=== PATIENT | female | born 1945 | race Caucasian/White ===

== ENCOUNTER 2020-03-11 15:10 | Outpatient (REF) | payer MEDICARE, SELFPAY ==
[2020-03-11 15:44] LABS: MANUAL DIFF FLAG NO
[2020-03-11 15:46] LABS: Basophils Percent Auto 0.6 % (0-2); Eosinophils Absolute Auto 0.1 X10*3/uL (0.0-0.4); Eosinophils Percent Auto 1.8 % (0-4); Hematocrit 37.2 % (37-47); Hemoglobin 11.5 g/dl (12.0-16.0); Lymphocytes Absolute Auto 1.2 X10*3/uL (1.2-4.9); Lymphocytes Percent Auto 24.5 % (20-40); Mean Corpuscular HGB Conc 30.9 g/dl (31.0-35.0); Mean Corpuscular Hemoglobin 27.7 pg (27.0-33.0); Mean Corpuscular Volume 89.6 fL (80-98); Mean Platelet Volume 9.4 fL (9.4-12.3); Monocytes Absolute Auto 0.4 X10*3/uL (0.1-1.2); Monocytes Percent Auto 8.6 % (2-11); Neutrophils Absolute Auto 3.2 X10*3/uL (2.0-8.3); Neutrophils Percent Auto 64.5 % (45-73); Platelet Count 254 X10*3/uL (160-400); Red Blood Count 4.15 X10*6/uL (4.20-5.50); Red Cell Distribution Width 15.8 % (11.0-16.0)
[2020-03-11 16:15] LABS: Alanine Aminotransferase 16 U/L (0-31); Albumin Level 4.3 g/dL (3.5-5.0); Alkaline Phosphatase 71 U/L (39-117); Anion Gap 13 (12-20); Aspartate Amino Transferase 20 U/L (5-31); Bilirubin Total 0.3 mg/dL (0.0-1.0); Blood Urea Nitrogen 16 mg/dL (9-16); Calcium 9.4 mg/dL (8.4-10.2); Carbon Dioxide 30 mmol/L (22-29); Chloride 102 mmol/L (96-108); Cholesterol 167 mg/dL; Estimated Glomerular Filt Rate > 60; Glucose Fasting 104 mg/dL (60-99); HDL Cholesterol 88 mg/dL; Iron 172 mcg/dL (30-160); LDL Cholesterol Calculated 69 mg/dl; Percent Iron Saturation 46 % (15-50); Potassium 4.3 mmol/l (3.3-5.1); Sodium 141 mmol/L (135-145); Total Iron Binding Capacity 378 mcg/dL (228-428); Total Protein 6.3 g/dL (6.5-8.0); Triglycerides 51 mg/dL; Unsaturated Iron Binding 206 ug/dL
[2020-03-11 16:48] LABS: Folate > 20.0 ng/mL (> or = 4.0); Vitamin B12 1033 pg/mL (200-900)
== END 2020-03-11 15:11 | disposition home or self-care (01) ==
LOC: HO.LAB 15:10
PROVIDERS: PCP Internal Medicine; Visit Provider Internal Medicine
DX: I10 Essential (primary) hypertension (principal); E78.00 Pure hypercholesterolemia, unspecified; R73.01 Impaired fasting glucose; D64.9 Anemia, unspecified; G62.9 Polyneuropathy, unspecified
CPT/HCPCS: 36415; 80053; 80061; 82607; 82746; 83540; 85025

== ENCOUNTER → 2020-04-10 13:41 | Outpatient (REF) | payer MEDICARE, SELFPAY ==
--- NOTE | 2020-04-10 13:44 | CA_ITS ---
Transthoracic Echocardiogram Patient (Last, First, Middle): Cary Davis, Gender: Female Date of : 1945 Age: 74 Procedure Date: 04/10/2020 Procedure Type: Transthoracic Echocardiogram Location: OP Height: 167.64 cm Weight: 58.06 kg BSA: 1.65 m2 Heart Rate: bpm BP: 116 / 60 mmHg Knifer Up: Referring MD: Espinoza Santiago MD Symptoms: R06.00 - Dyspnea, unspecified Study Quality: Good ECG Rhythm: Sinus Conclusions: - The left ventricular systolic function is normal. The visually estimated ejection fraction is between 60-65%. - There is mild to moderate aortic valve regurgitation. - There is mild mitral valve regurgitation. - There is mild tricuspid valve regurgitation. Findings Left Ventricle Normal left ventricular cavity size. There is mildly increased left ventricular wall thickness. The left ventricular systolic function is normal. The visually estimated ejection fraction is between 60-65%. There is no evidence of regional wall motion abnormalities. Diastolic function is normal for age. Right Ventricle Normal right ventricular cavity size and systolic function. Atria The left atrium is normal in size. The right atrium is normal in size. Aortic Valve There is a normal trileaflet aortic valve. There is mild calcification of the aortic valve. There is no aortic valve stenosis. There is mild to moderate aortic valve regurgitation. Mitral Valve The mitral valve appears normal. There is mild mitral valve regurgitation. There is no mitral valve stenosis. Pulmonic Valve The pulmonic valve was not well visualized. Tricuspid Valve Normal tricuspid valve structure. There is mild tricuspid valve regurgitation. The pulmonary artery systolic pressure is normal. Great Vessels The aortic annulus, sinuses of valsalva, and asc aorta are normal in size. Venous The inferior vena cava is normal in size and collapses greater than 50% with inspiration. Pericardium/Pleural There is no evidence of pericardial effusion. Prior Study Comparison Changes noted compared to prior study dated: 09/08/2017. Pulmonary hypertension not seen. Measurements 2D Linear Measurements IVSd: 1.10 0.6-0.9/0.6-1.0 cm LVIDd: 3.74 3.9-5.3/4.2-5.9 cm LVIDd Index: 2.27 2.4-3.2/2.2-3.1 cm/m2 LVIDs: 2.06 2.0-3.6 cm LVPWd: 1.03 0.7-1.1 cm Ao Root: 3.50 2.1-3.5 cm LA Diam: 2.90 2.7-3.8/3.0-4.0 cm LAIDs Index: 1.76 1.5-2.3 cm/m2 LV Mass: 155.95 67-162/88-224 g LV Mass Index: 94.51 43-95/49-115 g/m2 LVOT Diam: 2.10 3.0+(-)1.3 cm Mitral Valve MV Pk E: 0.74 MV PK A: 0.69 MV Decel Time: 165.00 E/A: 1.10 E'Lateral: 9.28 E'Medial: 9.86 E/E' Med: 7.50 E/E' Lat: 8.00 PHT: 48.00 MVA PHT: 4.58 Decel [place]: 4.48 Aortic Valve AoV Pk Kevin: 1.50 AoV Mn Kevin: 0.88 AoV VTI: 0.34 AoV Pk Grad: 9.00 Aov Mn Grad: 4.00 AIMEE Cont.VTI: 3.14 AI Pk Kevin: 4.41 AI [place]: 3.35 LVOT LVOT Pk Kevin: 1.40 LVOT Mn Kevin: 0.88 LVOT VTI: 0.31 LVOT Pk Grad: 8.00 LVOT Mn Grad: 4.00 LVOT Diam: 2.10 LVOT Area: 3.46 Diastolic Function MV Pk E: 0.74 MV Pk A: 0.69 E/A: 1.10 E'Medial: 9.86 E/E' Med: 7.50 E' Laterial: 9.28 E/E' Lat: 8.00 Tricuspid Valve TR Pk Kevin: 2.59 TR Pk Grad: 27.00 Great Vessels Aorta Ao Root-2D: 3.50 2.0-3.7 cm Ao Asc: 3.30 2.1-3.4 cm Pulmonary Valve PV Pk Kevin: 0.99 Peak PV Grad: 4.00 Updated in Other Vendor System with Status of Final Adalid Royal MD electronically signed on 04/13/2020 12:38:02 PM with status of Final
== END ==
LOC: HO.CARD 13:41
PROVIDERS: PCP Internal Medicine; Visit Provider Internal Medicine
DX: R06.00 Dyspnea, unspecified (principal)
CPT/HCPCS: 93306

== ENCOUNTER 2020-09-12 13:06 | Outpatient (REF) | payer MEDICARE, SELFPAY ==
--- NOTE | ~2020-09-12 | MM_ITS ---
EXAMINATION: MM SCREENING DIGITAL BREAST TOMOSYNTHESIS, BILATERAL CLINICAL INFORMATION: Screening. Asymptomatic. The lifetime risk of breast cancer based on the Tyrer-Cuzick Model is 2%. COMPARISON: Mammography: 03/03/2019, 02/25/2018, 01/09/2017 TECHNIQUE: Digital breast tomosynthesis is performed in both the craniocaudal and mediolateral oblique views along with computer-aided detection (CAD). Synthesized 2D images are generated from the tomosynthesis. FINDINGS: There are scattered areas of fibroglandular density (ACR BI-RADS breast composition Category b). There are no significant masses, abnormal calcifications, or other abnormalities. There is mild chronic bilateral nipple retraction. Some dermal calcifications are again noted. No significant changes. MM/MM tomosynthesis screening BI IMPRESSION: There are no significant changes from prior exams. ASSESSMENT: BI-RADS 2: Benign RECOMMENDATION: Routine annual mammography screening. This patient's information was entered into a reminder system with a target due date for their next mammogram.
== END 2020-09-12 13:07 | disposition home or self-care (01) ==
LOC: HO.MAMMO 13:06
PROVIDERS: Visit Provider Internal Medicine
DX: Z12.31 Encounter for screening mammogram for malignant neoplasm of breast (principal)
CPT/HCPCS: 77063; 77067

== ENCOUNTER 2020-11-09 22:49 | Emergency (ER) | payer MEDICARE, SELFPAY ==
[2020-11-09 23:43] VITALS: BP 103/43; PULSE 85; RESP 16; TEMP 36.7; O2SAT 96; BMI 20.9
--- NOTE | 2020-11-10 00:46 | ED.SKABFB ---
HPI - Skin/Abscess/Foreign Bdy General Chief complaint: Skin/Abscess/Foreign Body Stated complaint: spider bite Source: patient Mode of arrival: ambulatory Limitations: no limitations History of Present Illness HPI narrative: 75-year-old female presents with erythema and bruising to the left thumb after suspected spider bite. She does not report any fevers or chills, and states that the last time she was bitten by a spider that her whole hand swelled up and needed injectable antibiotics. She did not report any other symptoms at this time. MD complaint: insect bite/sting Onset (ago): day(s) (1) Tetanus up to date: yes Location: R hand (thumb) Severity: mild Severity scale (1-10): 1 Quality: aching Pain Consistency: constant Relieving factors: none Exacerbating factors: palpation and movement Context: none Associated symptoms: denies other symptoms Treatments prior to arrival: none Related Data Home Medications Medication Instructions Recorded Confirmed albuterol sulfate 90 mcg/actuation 2 puff INHALATION Q4-6H PRN 03/11/20 09/09/20 aerosol inhaler aspirin 81 mg tablet,delayed 81 mg PO DAILY 03/11/20 09/09/20 release clonazepam 0.5 mg tablet 0.5 mg PO BID 03/11/20 09/09/20 clonazepam 1 mg tablet 1 mg PO BEDTIME 03/11/20 09/09/20 fluticasone propionate 110 2 puff INHALATION BID 03/11/20 09/09/20 mcg/actuation HFA aerosol inhaler (Flovent HFA) lamotrigine 200 mg tablet 200 mg PO DAILY 03/11/20 09/09/20 sertraline 50 mg tablet 50 mg PO DAILY 03/11/20 09/09/20 trazodone 100 mg tablet 100 mg PO DAILY 03/11/20 09/09/20 Previous Rx's Medication Instructions Recorded simvastatin 20 mg tablet 20 mg PO BEDTIME #90 tab 05/20/20 duloxetine 30 mg capsule,delayed 30 mg PO BID #180 cap 05/22/20 release fluticasone propionate 50 2 spray INTRANASAL DAILY PRN 30 08/21/20 mcg/actuation nasal Days #16 g spray,suspension clopidogrel 75 mg tablet 75 mg PO DAILY #90 tab 10/10/20 amoxicillin 875 mg-potassium 1 tab PO Q12H 7 Days #14 tab 11/10/20 clavulanate 125 mg tablet (Augmentin) Allergies Allergy/AdvReac Type Severity Reaction Status Date / Time morphine [Morphine] Allergy Severe VOMITING/LONGORIA Verified 09/09/20 15:23 LLUCINATION S codeine [Codeine] Allergy Intermediate VOMITING/HALLUCINATIONS, Verified 09/09/20 15:23 nause/extended abdomen capsaicin [CAPSAICIN] Allergy Unknown BURNING Verified 09/09/20 15:23 latex Allergy Unknown Unknown Verified 09/09/20 15:23 atorvastatin AdvReac Unknown fever, Verified 09/09/20 15:23 chills, abd pain, numbness adhesives Allergy Unknown rash Uncoded 05/30/20 10:51 bacitracin Allergy Unknown redness Uncoded 05/30/20 10:51 and itching Review of Systems Review of Systems: Constitutional: No Fever, No Chills ENT/Mouth: No sore throat, No Rhinorrhea Eyes: No Eye Pain, No Swelling, No Redness Cardiovascular: No Chest Pain, No SOB Respiratory: No Cough, No Sputum Gastrointestinal: No Nausea, No Vomiting, No Diarrhea, No abdominal Pain Genitourinary: No Dysuria, No Hematuria Musculoskeletal: No joint pain, No Myalgias, No Joint Swelling Skin: No Skin Lesions, positive skin erythema and bruising Neuro: No Weakness, No Numbness, No Loss of Consciousness, No Dizziness, No Headache Psych: No Anxiety, No Depression, No SI/HI/AH/VH Heme/Lymph: No Bruising, No Bleeding,No Lymphadenopathy Endocrine: No Polyuria, No Polydipsia Yes all other systems are reviewed and are negative PMFSH Past Medical History Attestation statement: The following information was validated with the patient. Source: old records reviewed Medical History Alcoholism in remission Asthma Benign essential hypertension Exertional dyspnea Gait abnormality Neuropathy Partial symptomatic epilepsy with complex partial seizures, not intractable, without status epilepticus Peripheral arterial disease Pure hypercholesterolemia Unsteady gait Surgical History History of angioplasty History of cataract surgery History of cholecystectomy History of hysterectomy History of partial gastrectomy History of tubal ligation S/P excision of neuroma Family History Family History Father Heart disease CVD (cardiovascular disease) Stroke Hypertension Mother Heart disease CVD (cardiovascular disease) Asthma Maternal Grandmother No problems noted. Maternal Grandfather No problems noted. Paternal Grandmother No problems noted. Paternal Grandfather No problems noted. Social History Social History Housing: Apartment Alcohol intake: former Patient Tobacco Use Status: Former Tobacco user e-Cigarette/Vaping Use: Never Used Second Hand Smoke Exposure: Yes Advance Directives: No Advance Directives Information Provided: Yes service: No Current occupational status: retired Physical Exam Vital Signs: Vital Signs: Last Vital Signs Temp 98.0 F 11/09/20 23:43 Pulse 85 11/09/20 23:43 Resp 16 11/09/20 23:43 BP 103/43 L 11/09/20 23:43 Pulse Ox 96 11/09/20 23:43 Body Mass Index 20.9 Appearance: Alert. Oriented X3. No acute distress. Eyes: Pupils equal, round and reactive to light. ENT: Pharynx normal. Neck: Normal inspection. Neck supple. CVS: Normal heart rate and rhythm. Pulses normal. Respiratory: No respiratory distress. Breath sounds normal. Abdomen: Soft and nontender. Skin: Positive erythema and bruising to the left thumb, otherwise Skin warm and dry. Normal skin color. Normal skin turgor. Extremities: No lower extremity edema. Full range of motion to all extremities. Strength 5/5. Brisk capillary refill and equal pulses to the upper extremities. Neuro: No motor deficit. No sensory deficit. Cranial nerves 2-12 intact. Course Course Course Narrative: 75-year-old female presents with erythema and bruising from a spider bite. Will treat with Augmentin. Patient is afebrile and nontoxic. Vital signs within normal limits. Full range of motion, strength 5/5, brisk capillary refill in equal pulses to the upper extremities. Patient verbalized understanding of and agrees to plan of care discharge home. MDM - Skin/Abscess/Foreign Bdy Differential Diagnosis Differential diagnosis: Likely abscess of skin or subcutaneous tissue, cellulitis and insect bites Medical Records Attestation: I reviewed the patient's medical records. Discharge Plan Discharge Clinical Impression: Cellulitis Qualifiers: Site of cellulitis: extremity Site of cellulitis of extremity: finger Laterality: right Qualified Code(s): L03.011 - Cellulitis of right finger Patient Disposition: Home, Self-Care Instructions: Cellulitis (ED), Warm Compress or Soak (ED) Additional Instructions: You were evaluated for spider bite. Please take Augmentin twice a day as directed. Thank you for choosing this emergency department for evaluation. Please follow-up with primary care physician as needed. Return to the emergency department for any new, concerning, or worsening symptoms. Prescriptions: New amoxicillin-pot clavulanate [Augmentin] 875-125 mg tablet 1 tab PO Q12H 7 Days Qty: 14 RF: 0 No Action simvastatin 20 mg tablet 20 mg PO BEDTIME Qty: 90 RF: 2 duloxetine 30 mg capsule,delayed release(DR/EC) 30 mg PO BID Qty: 180 RF: 5 fluticasone propionate 50 mcg/actuation spray,suspension 2 spray intranasal DAILY PRN (Reason: allergy symptoms) 30 Days Qty: 16 RF: 5 clopidogrel 75 mg tablet 75 mg PO DAILY Qty: 90 RF: 1 sertraline 50 mg tablet 50 mg PO DAILY RF: 0 clonazepam 1 mg tablet 1 mg PO BEDTIME RF: 0 clonazepam 0.5 mg tablet 0.5 mg PO BID RF: 0 lamotrigine 200 mg tablet 200 mg PO DAILY RF: 0 trazodone 100 mg tablet 100 mg PO DAILY RF: 0 aspirin 81 mg tablet,delayed release (DR/EC) 81 mg PO DAILY RF: 0 Flovent HFA 110 mcg/actuation HFA aerosol inhaler 2 puff inhalation BID RF: 0 albuterol sulfate 90 mcg/actuation HFA aerosol inhaler 2 puff inhalation Q4-6H PRNRF: 0
[2020-11-10] MEDS: Amoxicillin/Potassium Clav 875 MG TABLET PO (01:40)
== END 2020-11-10 02:31 | disposition home or self-care (01) ==
PROVIDERS: Emergency Provider Emergency Medicine; PCP Internal Medicine
DX: L03.011 Cellulitis of right finger (principal); S60.361A Insect bite (nonvenomous) of right thumb, initial encounter; W57.XXXA Bitten or stung by nonvenomous insect and other nonvenomous arthropods, initial encounter; Y93.9 Activity, unspecified; Y92.9 Unspecified place or not applicable; Y99.9 Unspecified external cause status
CPT/HCPCS: 99283

== ENCOUNTER 2021-02-12 12:31 | Outpatient (REF) | payer MEDICARE, SELFPAY ==
[2021-02-12 12:45] LABS: MANUAL DIFF FLAG NO
[2021-02-12 13:00] LABS: Basophils Percent Auto 0.6 % (0-2); Eosinophils Absolute Auto 0.1 X10*3/uL (0.0-0.4); Eosinophils Percent Auto 1.6 % (0-4); Hematocrit 35.7 % (37.0-47.0); Imm Gran Abs Auto 0.01 X10*3/uL (0.00-0.03); Imm Gran Pct Auto 0.2 % (0.0-0.4); Lymphocytes Absolute Auto 1.3 X10*3/uL (1.2-4.9); Lymphocytes Percent Auto 26.7 % (20-40); Mean Corpuscular HGB Conc 30.8 g/dl (31.0-35.0); Mean Corpuscular Hemoglobin 25.7 pg (27.0-33.0); Mean Corpuscular Volume 83.4 fL (80.0-98.0); Mean Platelet Volume 9.4 fL (9.4-12.3); Monocytes Absolute Auto 0.5 X10*3/uL (0.1-1.2); Monocytes Percent Auto 9.7 % (2-11); Neutrophils Percent Auto 61.2 % (45-73); Platelet Count 275 X10*3/uL (160-400); Red Blood Count 4.28 X10*6/uL (4.20-5.50); White Blood Count 4.9 X10*3/uL (4.8-10.8)
[2021-02-12 13:37] LABS: Alanine Aminotransferase 19 U/L (0-31); Albumin Level 4.3 g/dL (3.5-5.0); Alkaline Phosphatase 67 U/L (39-117); Anion Gap 14 (12-20); Aspartate Amino Transferase 20 U/L (5-31); Bilirubin Total < 0.2 mg/dL (0.0-1.0); Blood Urea Nitrogen 20 mg/dL (9-16); Calcium 9.5 mg/dL (8.4-10.2); Carbon Dioxide 29 mmol/L (22-29); Chloride 106 mmol/L (96-108); Cholesterol 164 mg/dL; Estimated Glomerular Filt Rate > 60; Glucose Fasting 117 mg/dL (60-99); HDL Cholesterol 85 mg/dL; LDL Cholesterol Calculated 71 mg/dl; Potassium 4.8 mmol/L (3.3-5.1); Sodium 144 mmol/L (135-145); Total Protein 6.1 g/dL (6.5-8.0); Triglycerides 42 mg/dL
[2021-02-12 13:47] LABS: Erythrocyte Sedimentation Rate 5 MM/HR (0-20)
[2021-02-12 13:51] LABS: TSH reflex Free T4 0.91 uIU/mL (0.32-4.0); Vitamin D 25-OH Total 69.4 ng/mL (>30)
[2021-02-12 14:26] LABS: Folate > 20.0 ng/mL (> or = 4.0); Vitamin B12 467 pg/mL (200-900)
== END 2021-02-12 12:32 | disposition home or self-care (01) ==
LOC: HO.LAB 12:31
PROVIDERS: PCP Internal Medicine; Visit Provider Internal Medicine
DX: I10 Essential (primary) hypertension (principal); M79.604 Pain in right leg; M79.605 Pain in left leg; E78.00 Pure hypercholesterolemia, unspecified; E55.9 Vitamin D deficiency, unspecified; E53.8 Deficiency of other specified B group vitamins
CPT/HCPCS: 36415; 80053; 80061; 82306; 82550; 82607; 82746; 83735; 84443; 85025; 85652; 86140

== ENCOUNTER 2021-06-12 11:14 | Outpatient (REF) | payer MEDICARE, SELFPAY ==
[2021-06-12 11:31] LABS: MANUAL DIFF FLAG NO
[2021-06-12 11:49] LABS: Basophils Percent Auto 0.8 % (0-2); Eosinophils Absolute Auto 0.1 X10*3/uL (0.0-0.4); Eosinophils Percent Auto 2.1 % (0-4); Hematocrit 35.4 % (37.0-47.0); Hemoglobin 10.6 g/dl (12.0-16.0); Lymphocytes Absolute Auto 1.3 X10*3/uL (1.2-4.9); Lymphocytes Percent Auto 33.7 % (20-40); Mean Corpuscular HGB Conc 29.9 g/dl (31.0-35.0); Mean Corpuscular Hemoglobin 26.8 pg (27.0-33.0); Mean Corpuscular Volume 89.4 fL (80.0-98.0); Mean Platelet Volume 9.2 fL (9.4-12.3); Monocytes Absolute Auto 0.4 X10*3/uL (0.1-1.2); Monocytes Percent Auto 9.4 % (2-11); Platelet Count 243 X10*3/uL (160-400); Red Blood Count 3.96 X10*6/uL (4.20-5.50); Red Cell Distribution Width 15.4 % (11.0-16.0); White Blood Count 3.7 X10*3/uL (4.8-10.8)
[2021-06-12 13:05] LABS: Folate > 20.0 ng/mL (> or = 4.0); Vitamin B12 744 pg/mL (200-900)
[2021-06-12 13:11] LABS: Appearance Urine CLEAR; Color Urine YELLOW; Glucose Urine UA NEG (NEG); Leukocyte Esterase Urine NEG (NEG); Nitrite Urine NEG (NEG); Urine Blood NEG (NEG); Urine Ketones NEG (NEG); Urine Protein NEG (NEG-TRACE)
[2021-06-12 14:15] LABS: Alanine Aminotransferase 20 U/L (0-31); Albumin Level 4.2 g/dL (3.5-5.0); Alkaline Phosphatase 68 U/L (39-117); Anion Gap 12 (12-20); Aspartate Amino Transferase 23 U/L (5-31); Bilirubin Total 0.5 mg/dL (0.0-1.0); Blood Urea Nitrogen 13 mg/dL (9-16); Calcium 9.7 mg/dL (8.4-10.2); Carbon Dioxide 29 mmol/L (22-29); Chloride 102 mmol/L (96-108); Cholesterol 164 mg/dL; Estimated Glomerular Filt Rate > 60; Glucose Fasting 110 mg/dL (60-99); HDL Cholesterol 81 mg/dL; LDL Cholesterol Calculated 74 mg/dl; Potassium 4.3 mmol/L (3.3-5.1); Sodium 139 mmol/L (135-145); Triglycerides 45 mg/dL
[2021-06-12 14:38] LABS: TSH reflex Free T4 1.42 uIU/mL (0.32-4.0); Vitamin D 25-OH Total 51.5 ng/mL (>30)
== END 2021-06-12 11:15 | disposition home or self-care (01) ==
LOC: HO.LAB 11:14
PROVIDERS: PCP Internal Medicine; Visit Provider Internal Medicine
DX: G62.9 Polyneuropathy, unspecified (principal); E78.00 Pure hypercholesterolemia, unspecified; E55.9 Vitamin D deficiency, unspecified; I10 Essential (primary) hypertension
CPT/HCPCS: 36415; 80053; 80061; 81003; 82306; 82607; 82746; 84443; 85025

== ENCOUNTER → 2021-06-19 11:17 | Outpatient (BNV) | payer MEDICARE, SELFPAY | PROVIDERS: PCP Internal Medicine; Visit Provider Internal Medicine | DX: D64.9 Anemia, unspecified (principal); E61.1 Iron deficiency | CPT/HCPCS: 99203; 99213; 99214 ==

== ENCOUNTER 2021-07-03 07:17 | Outpatient (REF) | payer MEDICARE, SELFPAY | END 2021-07-03 07:18 | disposition home or self-care (01) | LOC: HO.MDS 07:17 | PROVIDERS: Visit Provider Internal Medicine | DX: D50.9 Iron deficiency anemia, unspecified (principal) | CPT/HCPCS: 96365; 96366; J1200; J1750; Q0163 ==

== ENCOUNTER 2021-07-17 11:15 | Outpatient (REF) | payer MEDICARE, SELFPAY ==
--- NOTE | ~2021-07-17 | MM_ITS ---
EXAMINATION: BONE DENSITOMETRY CLINICAL INDICATION: Asymptomatic menopausal state. COMPARISON: Previous BD dated 02/25/2018 and baseline BD dated 01/25/2007. CT 09/07/2017 TECHNIQUE: Using a [employer] DXA System (software version: 13.1) manufactured by [employer], dual-energy x-ray absorptiometry was performed of the lumbar spine and left hip. The images are of good technical quality. Summary results are attached. FINDINGS: AP SPINE L1-L3 (excluding L4): The data of L1-L4 has been changed to exclude the L4 vertebral body, because possible degenerative changes at this level may cause overestimation of lumbar spine density. Current: BMD 0.855 g/cm2, Z-score -0.6, T-score -2.6, osteoporosis, 10.8% decrease from previous, 22.5% decrease from baseline (<5% change is not significant). Prior: BMD 0.958 g/cm2. Baseline: BMD 1.103 g/cm2. LEFT FEMUR, NECK: Current: BMD 0.760 g/cm2, Z-score 0.2, T-score -2.0, osteopenia. Prior: BMD 0.786 g/cm2. Baseline: BMD 0.942 g/cm2. LEFT FEMUR, TOTAL: Current: BMD 0.784 g/cm2, Z-score 0.2, T-score -1.8, osteopenia, 1.3% decrease from previous, 16.6% decrease from baseline (<5% change is not significant). Prior: BMD 0.794 g/cm2. Baseline: BMD 0.940 g/cm2. IDENTIFIED RISK FACTORS: Osteoporosis, recurrent falls, secondary osteoporosis, menopause, hysterectomy, bilateral oophorectomy. HISTORY OF FRACTURE: None listed. MEDICATIONS: Calcium supplements or multivitamin, vitamin D. MM/XR DEXA axial skeleton IMPRESSION: 1. DIAGNOSIS: Osteoporosis based on the lowest T-score value of -2.6 in the lumbar spine applying World Health Organization criteria. 2. 10-YEAR FRACTURE RISK PREDICTION, FRAX: According to the guidelines, FRAX calculation should only be performed on patients in the osteopenia bone density category. Therefore, FRAX was not performed on this patient. 3. Treatment Recommendations: NOF guidelines recommend consideration for treatment in postmenopausal women and men age 50 and older presenting with the following: -A hip or vertebral (clinical or morphometric) fracture. -T-score less than or equal to -2.5 at the femoral neck or spine after appropriate evaluation to exclude secondary causes. -Low bone mass at the hip or spine and a 10-year fracture probability by FRAX of greater than or equal to 3% for hip fracture or greater than or equal to 20% for major osteoporotic fracture based on the [place] adapted WHO algorithm. 4. Other Recommendations: All treatment decisions require clinical judgment and consideration of individual patient factors, including patient preferences, comorbidities, previous drug use, risk factors not captured in the FRAX model (e.g. frailty, falls, vitamin D deficiency, increased bone turnover, interval significant decline in bone density) and possible under or overestimation of fracture risk by FRAX. Additional medical evaluation for secondary cause of low bone mineral density may be appropriate. FUTURE SCAN RECOMMENDATION: People with diagnosed cases of osteoporosis or at high risk for fracture should have regular bone mineral density tests. For patients eligible for Medicare, routine testing is allowed once every 2 years. The testing frequency can be increased to one year for patients who have rapidly progressing disease, those who are receiving or discontinuing medical therapy to restore bone mass, or have additional risk factors.
== END 2021-07-17 11:16 | disposition home or self-care (01) ==
LOC: HO.MAMMO 11:15
PROVIDERS: Visit Provider Internal Medicine
DX: Z13.820 Encounter for screening for osteoporosis (principal); M85.80 Other specified disorders of bone density and structure, unspecified site; Z78.0 Asymptomatic menopausal state
CPT/HCPCS: 77080

== ENCOUNTER 2021-09-15 13:17 | Outpatient (REF) | payer MEDICARE, SELFPAY ==
--- NOTE | ~2021-09-15 | MM_ITS ---
EXAMINATION: MM SCREENING DIGITAL BREAST TOMOSYNTHESIS, BILATERAL CLINICAL INFORMATION: Screening. Asymptomatic. The lifetime risk of breast cancer based on the Tyrer-Cuzick Model is 2%. COMPARISON: Mammography: 09/12/2020, 03/03/2019, 02/25/2018 TECHNIQUE: Digital breast tomosynthesis is performed in both the craniocaudal and mediolateral oblique views along with computer-aided detection (CAD). Synthesized 2D images are generated from the tomosynthesis. FINDINGS: There are scattered areas of fibroglandular density (ACR BI-RADS breast composition Category b). There are no significant masses, abnormal calcifications, or other abnormalities. No developing density or interval changes. Chronic bilateral nipple retraction again seen. No significant changes. MM/MM tomosynthesis screening BI IMPRESSION: No mammographic evidence of malignancy. ASSESSMENT: BI-RADS 2: Benign RECOMMENDATION: Routine annual mammography screening. This patient's information was entered into a reminder system with a target due date for their next mammogram.
== END 2021-09-15 13:18 | disposition home or self-care (01) ==
LOC: HO.MAMMO 13:17
PROVIDERS: PCP Internal Medicine; Visit Provider Internal Medicine
DX: Z12.31 Encounter for screening mammogram for malignant neoplasm of breast (principal)
CPT/HCPCS: 77063; 77067

== ENCOUNTER 2021-10-09 08:48 | Outpatient (REF) | payer MEDICARE, SELFPAY ==
--- NOTE | ~2021-10-09 | XR_ITS ---
EXAMINATION: XR SHOULDER, RIGHT CLINICAL INFORMATION: Pain. COMPARISON: Radiographs dated 09/13/2013. TECHNIQUE: AP neutral, scapula Y and axillary views of the right shoulder are submitted. FINDINGS: The bones and soft tissues are normal. No fracture. Glenohumeral and acromioclavicular alignment is anatomic with normal joint space. No abnormal soft tissue calcifications. XR/XR shoulder RT min 2V IMPRESSION: Normal right shoulder.
== END 2021-10-09 08:49 | disposition home or self-care (01) ==
LOC: HO.HOSX 08:48
PROVIDERS: Visit Provider Physician Assistant
DX: M75.80 Other shoulder lesions, unspecified shoulder (principal); M75.21 Bicipital tendinitis, right shoulder
CPT/HCPCS: 20610; 73030; 99202; J1040

== ENCOUNTER 2021-10-16 14:54 | Outpatient (REF) | payer MEDICARE, SELFPAY ==
--- NOTE | ~2021-10-16 | XR_ITS ---
EXAMINATION: XR CERVICAL SPINE CLINICAL INFORMATION: M54.2 - Cervicalgia COMPARISON: CT cervical spine 09/07/2017 TECHNIQUE: 4 views of the cervical spine are obtained. FINDINGS: There is straightening and mild reversal cervical lordosis with mild dextrocurvature cervical thoracic junction similar to prior imaging. There is no cervical vertebral compression, spondylolisthesis, destructive process, or prevertebral soft tissue swelling. The odontoid appears intact. There are again degenerative changes between anterior arch C1 and the dens. Degenerative disc changes are present at C5-C6 and lesser at C4-C5. There is mild disc narrowing and vertebral spurring. 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 XR/XR cervical spine 2V IMPRESSION: -Straightening and mild reversal cervical lordosis with mild dextrocurvature cervical thoracic spine. -Degenerative disc changes C5-C6 and lesser at C4-C5.
== END 2021-10-16 14:55 | disposition home or self-care (01) ==
LOC: HO.XRAY 14:54
PROVIDERS: PCP Internal Medicine; Visit Provider Physician Assistant
DX: S16.1XXD Strain of muscle, fascia and tendon at neck level, subsequent encounter (principal)
CPT/HCPCS: 72040; 99212

== ENCOUNTER → 2021-11-07 09:55 | Outpatient (BNVA) | payer MEDICARE, SELFPAY | PROVIDERS: PCP Internal Medicine; Visit Provider Nurse Practitioner Family | DX: M47.812 Spondylosis without myelopathy or radiculopathy, cervical region (principal); M50.30 Other cervical disc degeneration, unspecified cervical region; M62.838 Other muscle spasm; M25.511 Pain in right shoulder; Z79.899 Other long term (current) drug therapy | CPT/HCPCS: 99202 ==

== ENCOUNTER 2021-12-25 09:55 | Outpatient (REF) | payer MEDICARE, SELFPAY ==
--- NOTE | ~2021-12-25 | XR_ITS ---
EXAMINATION: XR THORACIC SPINE CLINICAL INFORMATION: Pain COMPARISON: None TECHNIQUE: 3 views of the thoracic spine were obtained. FINDINGS: Bone alignment is normal. No fracture or dislocation is seen. There is mild spondylolisthesis and disc narrowing of the proximal and mid thoracic spine. Paraspinal soft tissues are normal. XR/XR thoracic spine 3V IMPRESSION: Mild degenerative changes.
== END 2021-12-25 09:56 | disposition home or self-care (01) ==
LOC: HO.XRAY 09:55
PROVIDERS: PCP Internal Medicine; Visit Provider Internal Medicine
DX: M54.6 Pain in thoracic spine (principal); M62.838 Other muscle spasm; M50.30 Other cervical disc degeneration, unspecified cervical region; M81.0 Age-related osteoporosis without current pathological fracture; M54.12 Radiculopathy, cervical region; R26.89 Other abnormalities of gait and mobility; R26.81 Unsteadiness on feet
CPT/HCPCS: 72072; 99212

== ENCOUNTER 2022-01-09 16:38 | Outpatient (REF) | payer MEDICARE, SELFPAY ==
[2022-01-09 16:51] LABS: MANUAL DIFF FLAG NO
[2022-01-09 17:18] LABS: Basophils Percent Auto 0.8 % (0-2); Eosinophils Absolute Auto 0.3 X10*3/uL (0.0-0.4); Eosinophils Percent Auto 5.8 % (0-4); Hematocrit 37.5 % (37.0-47.0); Hemoglobin 12.1 g/dl (12.0-16.0); Imm Gran Abs Auto 0.01 X10*3/uL (0.00-0.03); Imm Gran Pct Auto 0.2 % (0.0-0.4); Lymphocytes Absolute Auto 1.4 X10*3/uL (1.2-4.9); Lymphocytes Percent Auto 28.6 % (20-40); Mean Corpuscular HGB Conc 32.3 g/dl (31.0-35.0); Mean Corpuscular Hemoglobin 32.2 pg (27.0-33.0); Mean Corpuscular Volume 99.7 fL (80.0-98.0); Mean Platelet Volume 9.7 fL (9.4-12.3); Monocytes Absolute Auto 0.4 X10*3/uL (0.1-1.2); Monocytes Percent Auto 8.4 % (2-11); Neutrophils Absolute Auto 2.7 x10*3/uL (2.0-8.3); Neutrophils Percent Auto 56.2 % (45-73); Platelet Count 228 X10*3/uL (160-400); Red Blood Count 3.76 X10*6/uL (4.20-5.50); Red Cell Distribution Width 13.2 % (11.0-16.0); White Blood Count 4.9 X10*3/uL (4.8-10.8)
[2022-01-09 17:29] LABS: Appearance Urine Cloudy; Color Urine Yellow; Glucose Urine UA Negative (Negative); Leukocyte Esterase Urine Moderate (2+) (Negative); Nitrite Urine Negative (Negative); PH 5.5 (5.0-9.0); UMIC TRIGGER UACC YES; Urine Blood Negative (Negative); Urine Ketones Trace mg/dL (Negative); Urine Protein Negative (Neg-Trace)
[2022-01-09 17:33] LABS: Alanine Aminotransferase 24 U/L (0-31); Albumin Level 4.1 g/dL (3.5-5.0); Alkaline Phosphatase 74 U/L (39-117); Anion Gap 13 (12-20); Aspartate Amino Transferase 19 U/L (5-31); Bilirubin Total 0.3 mg/dL (0.0-1.0); Blood Urea Nitrogen 12 mg/dL (9-16); Calcium 8.9 mg/dL (8.4-10.2); Carbon Dioxide 26 mmol/L (22-29); Chloride 109 mmol/L (96-108); Cholesterol 153 mg/dL; Estimated Glomerular Filt Rate > 60; Glucose Fasting 96 mg/dL (60-99); HDL Cholesterol 86 mg/dL; Iron 80 mcg/dL (30-160); LDL Cholesterol Calculated 61 mg/dl; Percent Iron Saturation 31 % (15-50); Potassium 4.1 mmol/L (3.3-5.1); Sodium 144 mmol/L (135-145); Total Iron Binding Capacity 257 mcg/dL (228-428); Total Protein 5.6 g/dL (6.5-8.0); Triglycerides 31 mg/dL; Unsaturated Iron Binding 177 ug/dL
[2022-01-09 17:42] LABS: Bacteria Urine None Seen (None Seen); Calcium Oxalate Crystals Urine Present; Hyaline Casts Urine 0-2 /LPF (0-2); RBC Urine 0-2 /HPF (0-2); Squamous Epithelial Cell Urine 0-2 /HPF (0-2); UACC Culture Trigger YES; WBC Urine 21-50 /HPF (0-5)
[2022-01-09 17:51] LABS: TSH reflex Free T4 0.79 uIU/mL (0.32-4.0); Vitamin D 25-OH Total 34.5 ng/mL (>30)
[2022-01-09 18:05] LABS: Folate > 20.0 ng/mL (> or = 4.0); Vitamin B12 528 pg/mL (200-900)
== END 2022-01-09 16:39 | disposition home or self-care (01) ==
LOC: HO.LAB 16:38
PROVIDERS: PCP Internal Medicine; Visit Provider Internal Medicine
DX: I10 Essential (primary) hypertension (principal); E55.9 Vitamin D deficiency, unspecified; D50.9 Iron deficiency anemia, unspecified; E53.8 Deficiency of other specified B group vitamins; E78.00 Pure hypercholesterolemia, unspecified
CPT/HCPCS: 36415; 80053; 80061; 81001; 82306; 82607; 82746; 83540; 84443; 85025; 87086

== ENCOUNTER 2022-01-12 10:17 | Outpatient (REF) | payer MEDICARE, SELFPAY ==
--- NOTE | ~2022-01-12 | MR_ITS ---
EXAMINATION: MR CERVICAL SPINE WITHOUT CONTRAST CLINICAL INFORMATION: Pain radiating into head. Difficulty looking down. Bilateral leg claudication. Prior fall. COMPARISON: MRI dated 10/25/2014 and x-ray from 10/16/2021. TECHNIQUE: Multiplanar, multisequential imaging of the cervical spine was performed without contrast. FINDINGS: VERTEBRAL BODIES AND PARASPINAL SOFT TISSUES: The marrow signal is within normal limits. There are no compression fractures. Mild anterolisthesis noted at the C4-C5 level. The paraspinal soft tissues appear normal. 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 The vertebral artery flow-voids are maintained. The imaged lung apices are grossly clear. CERVICOMEDULLARY JUNCTION AND VISUALIZED POSTERIOR FOSSA: The craniovertebral junction appears normal. The imaged portions of the brain are unremarkable. No cord signal abnormality or syrinx is seen. SPINAL LEVELS: C2-C3: No significant disc pathology, central canal stenosis, or foraminal narrowing. C3-C4: Shallow central disc protrusion noted without central canal stenosis. Moderate left-sided facet arthropathy without foraminal encroachment. C4-C5: Mild anterior subluxation and ankylosis of the right facet joint. No central canal stenosis. Stable moderate right foraminal narrowing. C5-C6: Broad-based disc-osteophyte complex without central canal stenosis. Stable [id number] left foraminal narrowing. C6-C7: Very mild disc bulge without central canal stenosis or foraminal encroachment. C7-T1: No disc pathology. No central canal stenosis or foraminal narrowing. MR/MR cervical spine wo con IMPRESSION: Stable cervical spondylosis compared to prior imaging. No central canal stenosis. Small central disc protrusion at the C3-C4 level. Moderate right foraminal narrowing and hypertrophic facet ankylosis on the right side at the C4-C5 level. Moderate degenerative disc disease at the C5-C6 level with [id number] foraminal narrowing, more so on the left side.
== END 2022-01-12 10:18 | disposition home or self-care (01) ==
LOC: HO.MRI 10:17
PROVIDERS: Visit Provider Nurse Practitioner Family
DX: M50.30 Other cervical disc degeneration, unspecified cervical region (principal); M54.12 Radiculopathy, cervical region; M62.838 Other muscle spasm; M81.0 Age-related osteoporosis without current pathological fracture; R26.81 Unsteadiness on feet; R26.89 Other abnormalities of gait and mobility
CPT/HCPCS: 72141

== ENCOUNTER → 2022-01-15 11:32 | Outpatient (BNVA) | payer MEDICARE, SELFPAY | PROVIDERS: PCP Internal Medicine; Visit Provider Nurse Practitioner Family | DX: M62.838 Other muscle spasm (principal); M47.22 Other spondylosis with radiculopathy, cervical region; M50.30 Other cervical disc degeneration, unspecified cervical region; M54.2 Cervicalgia; M81.0 Age-related osteoporosis without current pathological fracture; R26.81 Unsteadiness on feet | CPT/HCPCS: Q3014 ==

== ENCOUNTER 2022-02-24 06:26 | Outpatient (REF) | payer MEDICARE, SELFPAY ==
--- NOTE | ~2022-02-24 | FL_ITS ---
EXAMINATION: XR FLUOROSCOPY WITH IMAGES CLINICAL INFORMATION: Cervical spondylosis. COMPARISON: Cervical spine MRI 01/12/2022. TECHNIQUE: Fluoroscopy Supervised By: Dr. Elia Sebastian. Fluoroscopy Time: 0.6 minutes. Cumulative Dose: 3.5 mGy. DAP: 0.911 Gycm2. Images: 6. FINDINGS: Mead with contrast seen bilaterally in the regions of C5-C7. FL/FL guidance in treatment room IMPRESSION: Intraoperative fluoroscopy for pain management procedure.
== END 2022-02-24 06:27 | disposition home or self-care (01) ==
LOC: CF 06:26
PROVIDERS: Visit Provider Anesthesiology
DX: M47.812 Spondylosis without myelopathy or radiculopathy, cervical region (principal); M62.838 Other muscle spasm; M54.12 Radiculopathy, cervical region; M50.30 Other cervical disc degeneration, unspecified cervical region; M81.0 Age-related osteoporosis without current pathological fracture; R26.81 Unsteadiness on feet
CPT/HCPCS: 64490; 64491

== ENCOUNTER → 2022-03-02 16:33 | Outpatient (BNVA) | payer MEDICARE, SELFPAY | PROVIDERS: PCP Internal Medicine; Visit Provider Anesthesiology | DX: M62.838 Other muscle spasm (principal); M47.22 Other spondylosis with radiculopathy, cervical region; M50.30 Other cervical disc degeneration, unspecified cervical region; M54.2 Cervicalgia; M81.0 Age-related osteoporosis without current pathological fracture; R26.81 Unsteadiness on feet | CPT/HCPCS: Q3014 ==

== ENCOUNTER 2022-04-01 10:00 | Outpatient (REF) | payer MEDICARE, SELFPAY ==
--- NOTE | 2022-04-01 12:14 | EMG_ITS ---
Please see scanned EMG / Nerve Conduction Report. MTDD
== END 2022-04-01 10:01 | disposition home or self-care (01) ==
LOC: HO.NEURO 10:00
PROVIDERS: PCP Internal Medicine; Visit Provider Nurse Practitioner Family
DX: M50.30 Other cervical disc degeneration, unspecified cervical region (principal); M54.12 Radiculopathy, cervical region; M62.838 Other muscle spasm; R26.81 Unsteadiness on feet; R26.89 Other abnormalities of gait and mobility
CPT/HCPCS: 95885; 95910

== ENCOUNTER 2022-05-12 13:10 | Outpatient (REF) | payer MEDICARE, SELFPAY ==
[2022-05-12 13:33] LABS: MANUAL DIFF FLAG NO
[2022-05-12 14:23] LABS: Basophils Percent Auto 0.9 % (0-2); Eosinophils Absolute Auto 0.1 X10*3/uL (0.0-0.4); Eosinophils Percent Auto 1.7 % (0-4); Hematocrit 37.4 % (37.0-47.0); Hemoglobin 12.3 g/dl (12.0-16.0); Imm Gran Abs Auto 0.01 X10*3/uL (0.00-0.03); Imm Gran Pct Auto 0.3 % (0.0-0.4); Mean Corpuscular HGB Conc 32.9 g/dl (31.0-35.0); Mean Corpuscular Hemoglobin 32.1 pg (27.0-33.0); Mean Corpuscular Volume 97.7 fL (80.0-98.0); Mean Platelet Volume 9.9 fL (9.4-12.3); Monocytes Absolute Auto 0.3 X10*3/uL (0.1-1.2); Monocytes Percent Auto 8.6 % (2-11); Neutrophils Percent Auto 58.5 % (45-73); Platelet Count 228 X10*3/uL (160-400); Red Blood Count 3.83 X10*6/uL (4.20-5.50); White Blood Count 3.5 X10*3/uL (4.8-10.8)
[2022-05-12 14:58] LABS: Alanine Aminotransferase 28 U/L (0-31); Albumin Level 3.9 g/dL (3.5-5.0); Alkaline Phosphatase 69 U/L (39-117); Anion Gap 9 (12-20); Aspartate Amino Transferase 25 U/L (5-31); Bilirubin Total 0.4 mg/dL (0.0-1.0); Blood Urea Nitrogen 17 mg/dL (9-16); Calcium 9.1 mg/dL (8.4-10.2); Carbon Dioxide 26 mmol/L (22-29); Chloride 107 mmol/L (96-108); Cholesterol 161 mg/dL; Estimated Glomerular Filt Rate > 60; Glucose Fasting 105 mg/dL (60-99); HDL Cholesterol 77 mg/dL; LDL Cholesterol Calculated 76 mg/dl; Potassium 4.3 mmol/L (3.3-5.1); Sodium 138 mmol/L (135-145); Total Protein 5.5 g/dL (6.5-8.0); Triglycerides 41 mg/dL
== END 2022-05-12 13:11 | disposition home or self-care (01) ==
LOC: HO.LAB 13:10
PROVIDERS: PCP Internal Medicine; Visit Provider Internal Medicine
DX: I10 Essential (primary) hypertension (principal); D64.9 Anemia, unspecified; E78.00 Pure hypercholesterolemia, unspecified
CPT/HCPCS: 36415; 80053; 80061; 85025; 86850; 86900; 86901

== ENCOUNTER 2022-06-30 14:00 | Outpatient (RCR) | payer MEDICARE, OTHER, SELFPAY ==
--- NOTE | 2022-05-26 13:04 | MHC.PT.EP ---
[place] [facility] [place] [facility] [place] [facility] [address] [place] [address] [phone] F: [phone] F: [phone] F: [phone] F: [phone] Physical Therapy Plan of Care Date of Evaluation: Date of Surgery: N/A Diagnosis: cervical and lumbosacral spondylosis (RC) Assessment: pt is a 77 y/o female presenting to physical therapy w/ referring diagnosis of cervical and lumbosacral spondylosis, M62.838 other muscle spasm. Impairments include pain, decreased range of motion, decreased strength, impaired functional mobility, impaired postural awareness, and altered ambulation mechanics. pt is a fair candidate for skilled PT due to age, potential remediation of impairments, typical disease/condition progression and prognosis, comorbidities, and motivation. pt would benefit from skilled PT intervention to provide a tailored strengthening and stretching exercise program, functional training, gait training, postural re-training, neuromuscular re-education, modalities as needed for pain, equipment safety demonstration. Frequency and Duration: The patient will be seen 2x/wk for 3 wks Short Term Goals: pt will be I w/ HEP to promote self-management of condition. pt will demo proper sitting posture w/ lumbar roll to promote neutral spine w/ tasks such as reading and seated ADLs. pt will improve B cervical rotation by 10 degrees to promote ease in head turns w/ safety for driving. Home Performance Consultant Goals: pt will report a statistically significant improvement in self-reported outcome measure, NDI, to promote return to PLOF. 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 Treatment Plan: Modalities to reduce pain, spasms and effusion. Manual therapy to restore motion and function. Therapeutic exercise to improve strength and flexibility. Neuromuscular re-education for posture and balance. Therapeutic activities to return to functional activities of daily living. Electronically signed by: Tatiana Cai PT, DPT Please sign and return to therapist. Thank you for your referral.
--- NOTE | 2022-06-30 14:29 | MHC.PT.DC ---
[facility] [place] Office [place] Office [place] [facility] [address] [place] [address] [phone] F: [phone] F: [phone] F: [phone] F: [phone] Physical Therapy Discharge Report Diagnosis: cervical and lumbosacral spondylosis (RC) Date of Surgery: N/A Date of Evaluation: 05/26/22 Date of Discharge: 06/30/22 Treatments to Date: 6 Cancellations to Date: 4 No Shows to Date: 1 Discharge Status: Recommend MD Follow-up Discharge Summary: The patient continues to report no change in her neck and thoracic spine pain. She localized discomfort diffusely throughout neck, bilateral shoulders, bilateral scapulae, and thoracic spine. She stated her old rotator cuff pain is also starting to return. She stated PT has not been helpful in reducing her pain symptoms. She has been compliant with her home exercise program and was able to name each exercise. Her compliance with the program was never a barrier. Unfortunately, due to lack of progress she is being discharged from physical therapy at this time. She stated she had the best relief with what sounded like trigger point injections and a cortisone injection approximately last August-September from Dr. Sebastian. She would benefit from follow-up to determine if she is a candidate for repeat injections. Electronically signed by: Tatiana Cai PT, DPT Please sign and return to therapist. Thank you for your referral.
== END 2022-06-30 14:36 | disposition home or self-care (01) ==
LOC: HO.PT 14:00
PROVIDERS: PCP Internal Medicine; Visit Provider Anesthesiology
DX: M47.817 Spondylosis without myelopathy or radiculopathy, lumbosacral region (principal); M62.838 Other muscle spasm
CPT/HCPCS: 97110; 97140; 97162

== ENCOUNTER → 2022-07-09 08:44 | Outpatient (BNVA) | payer MEDICARE, OTHER, SELFPAY | PROVIDERS: PCP Internal Medicine; Visit Provider Anesthesiology | DX: M81.0 Age-related osteoporosis without current pathological fracture (principal); M50.30 Other cervical disc degeneration, unspecified cervical region; M47.22 Other spondylosis with radiculopathy, cervical region; M62.838 Other muscle spasm; R26.81 Unsteadiness on feet | CPT/HCPCS: 99212 ==

== ENCOUNTER 2022-08-18 06:11 | Outpatient (REF) | payer MEDICARE, MEDICAID, SELFPAY ==
--- NOTE | ~2022-08-18 | FL_ITS ---
EXAMINATION: XR FLUOROSCOPY WITH IMAGES CLINICAL INFORMATION: Neck pain. COMPARISON: None available. TECHNIQUE: Fluoroscopy Supervised By: Dr. Arnaldo Ontiveros. Fluoroscopy Time: 0.8 minutes. Cumulative Dose: 1.42 mGy. DAP: 0.0248 Gycm2. Images: 6. FINDINGS: 6 digital images obtained of cervical spine with needle positioned adjacent to bilateral C2, C3, C4 lamina with contrast opacifying the soft tissues for pain management. No gross bony abnormality seen. FL/FL guidance in treatment room IMPRESSION: Fluoroscopy was provided to referring physician for pain management.
== END 2022-08-18 06:12 | disposition home or self-care (01) ==
LOC: CF 06:11
PROVIDERS: Visit Provider Anesthesiology
DX: M47.812 Spondylosis without myelopathy or radiculopathy, cervical region (principal); M50.30 Other cervical disc degeneration, unspecified cervical region; M62.838 Other muscle spasm; M54.12 Radiculopathy, cervical region; M81.0 Age-related osteoporosis without current pathological fracture; R26.81 Unsteadiness on feet
CPT/HCPCS: 64490; 64491; J3301

== ENCOUNTER 2022-09-14 10:24 | Outpatient (REF) | payer MEDICARE, MEDICAID, SELFPAY ==
[2022-09-14 10:38] LABS: MANUAL DIFF FLAG NO
[2022-09-14 11:31] LABS: Appearance Urine Cloudy; Color Urine Dark Yellow; Glucose Urine UA Negative (Negative); Leukocyte Esterase Urine Small (1+) (Negative); Nitrite Urine Negative (Negative); PH 5.5 (5.0-9.0); UMIC TRIGGER UACC YES; Urine Blood Negative (Negative); Urine Ketones Trace mg/dL (Negative); Urine Protein Trace mg/dL (Neg-Trace)
[2022-09-14 11:48] LABS: Bacteria Urine Trace (None Seen); Calcium Oxalate Crystals Urine Present; Hyaline Casts Urine 0-2 /LPF (0-2); Other Crystals Urine Present; Squamous Epithelial Cell Urine 0-2 /HPF (0-2); UACC Culture Trigger YES
[2022-09-14 11:49] LABS: Basophils Percent Auto 0.7 % (0-2); Eosinophils Absolute Auto 0.1 X10*3/uL (0.0-0.4); Eosinophils Percent Auto 1.9 % (0-4); Hematocrit 38.3 % (37.0-47.0); Hemoglobin 12.4 g/dl (12.0-16.0); Imm Gran Abs Auto 0.01 X10*3/uL (0.00-0.03); Imm Gran Pct Auto 0.2 % (0.0-0.4); Lymphocytes Absolute Auto 1.2 X10*3/uL (1.2-4.9); Lymphocytes Percent Auto 27.8 % (20-40); Mean Corpuscular HGB Conc 32.4 g/dl (31.0-35.0); Mean Corpuscular Hemoglobin 31.2 pg (27.0-33.0); Mean Corpuscular Volume 96.2 fL (80.0-98.0); Monocytes Absolute Auto 0.4 X10*3/uL (0.1-1.2); Monocytes Percent Auto 9.4 % (2-11); Neutrophils Absolute Auto 2.5 x10*3/uL (2.0-8.3); Platelet Count 199 X10*3/uL (160-400); Red Blood Count 3.98 X10*6/uL (4.20-5.50); Red Cell Distribution Width 13.2 % (11.0-16.0); White Blood Count 4.2 X10*3/uL (4.8-10.8)
[2022-09-14 13:01] LABS: Alanine Aminotransferase 38 U/L (0-31); Albumin Level 3.9 g/dL (3.5-5.0); Alkaline Phosphatase 67 U/L (39-117); Anion Gap 12 (12-20); Aspartate Amino Transferase 27 U/L (5-31); Bilirubin Total 0.5 mg/dL (0.0-1.0); Blood Urea Nitrogen 18 mg/dL (9-16); Calcium 9.2 mg/dL (8.4-10.2); Carbon Dioxide 28 mmol/L (22-29); Chloride 105 mmol/L (96-108); Cholesterol 148 mg/dL; Estimated Glomerular Filt Rate > 60; Glucose Fasting 120 mg/dL (60-99); HDL Cholesterol 76 mg/dL; LDL Cholesterol Calculated 65 mg/dl; Potassium 3.7 mmol/L (3.3-5.1); Sodium 141 mmol/L (135-145); Total Protein 5.8 g/dL (6.5-8.0); Triglycerides 36 mg/dL
[2022-09-14 13:19] LABS: TSH reflex Free T4 1.81 uIU/mL (0.32-4.0)
== END 2022-09-14 10:25 | disposition home or self-care (01) ==
LOC: HO.LAB 10:24
PROVIDERS: PCP Internal Medicine; Visit Provider Internal Medicine
DX: M47.814 Spondylosis without myelopathy or radiculopathy, thoracic region (principal); M50.30 Other cervical disc degeneration, unspecified cervical region; M47.812 Spondylosis without myelopathy or radiculopathy, cervical region; M81.0 Age-related osteoporosis without current pathological fracture; R26.81 Unsteadiness on feet; E78.00 Pure hypercholesterolemia, unspecified; E55.9 Vitamin D deficiency, unspecified; I10 Essential (primary) hypertension; R82.90 Unspecified abnormal findings in urine
CPT/HCPCS: 36415; 80053; 80061; 81001; 82306; 84443; 85025; 87086; 99212

== ENCOUNTER → 2022-10-27 12:45 | Outpatient (BNV) | payer MEDICARE, MEDICAID, SELFPAY | PROVIDERS: Visit Provider Radiology Diagnostic Radiology | DX: Z12.31 Encounter for screening mammogram for malignant neoplasm of breast (principal) | CPT/HCPCS: 77063; 77067 ==

== ENCOUNTER 2022-10-27 12:47 | Outpatient (REF) | payer MEDICARE, MEDICAID, SELFPAY ==
--- NOTE | ~2022-10-27 | MM_ITS ---
EXAMINATION: MM SCREENING DIGITAL BREAST TOMOSYNTHESIS, BILATERAL CLINICAL INFORMATION: Screening. Asymptomatic. The lifetime risk of breast cancer based on the Tyrer-Cuzick Model is 3.4%. COMPARISON: Mammography: 09/15/2021, 09/12/2020, and dating back to 2014. TECHNIQUE: Digital breast tomosynthesis is performed in both the craniocaudal and mediolateral oblique views along with computer-aided detection (CAD). Synthesized 2D images are generated from the tomosynthesis. In addition, a full-field 3-D left nipple in profile view was obtained. FINDINGS: There are scattered areas of fibroglandular density (ACR BI-RADS breast composition Category b). There are no suspicious masses, suspicious grouped calcifications, or areas of architectural distortion. The parenchymal pattern is stable from prior exams. There are no skin changes. MM/MM tomosynthesis screening BI IMPRESSION: No mammographic evidence of malignancy. ASSESSMENT: BI-RADS BI-RADS 1 - Negative RECOMMENDATION: Routine annual mammography screening. 1 year F/U This examination should not preclude the clinical evaluation of a suspicious palpable abnormality. This patient's information was entered into a reminder system with a target due date for their next mammogram.
== END 2022-10-27 12:48 | disposition home or self-care (01) ==
LOC: HO.MAMMO 12:47
PROVIDERS: Visit Provider Internal Medicine
DX: Z12.31 Encounter for screening mammogram for malignant neoplasm of breast (principal)
CPT/HCPCS: 77063; 77067

== ENCOUNTER 2022-11-09 09:49 | Outpatient (AMB) | payer MEDICARE, MEDICAID, SELFPAY ==
--- NOTE | 2022-11-09 09:53 | A.OFFVIS_ITS ---
Intake Vital Signs 11/09/22 09:59 Height 5 ft 6 in Weight 111 lb 8 oz BMI 18.0 BP 116/56 L Blood Pressure Location Lt brachial Position Sitting Respiration 14 Pulse 60 Pulse Source Pulse Oximeter Pulse Oximetry (%) 94 Oxygen Delivery Method Room Air Intake Visit Reasons: FOLLOW UP AFTER XRAY Allergies morphine [Morphine] Allergy (Severe, Verified 11/09/22 10:00) VOMITING/HALLUCINATIONS codeine [Codeine] Allergy (Intermediate, Verified 11/09/22 10:00) VOMITING/HALLUCINATIONS, nause/extended abdomen capsaicin [CAPSAICIN] Allergy (Unknown, Verified 11/09/22 10:00) BURNING latex Allergy (Unknown, Verified 11/09/22 10:00) Unknown atorvastatin Adverse Reaction (Unknown, Verified 11/09/22 10:00) fever, chills, abd pain, numbness adhesives Allergy (Unknown, Uncoded 07/09/22 09:06) rash bacitracin Allergy (Unknown, Uncoded 07/09/22 09:06) redness and itching HPI HPI Comments History of Present Illness Details Cary is a very pleasant 76 year old female who presents to the office with complaints of neck pain and pain in the thoracic spine..? She finished physical therapy 8 sessions and continues home exercise program however she reports minimal help if any from physical therapy.? Therapeutic C2-C3 C4 medial branch block was performed on the patient however unfortunately did not result in headache improvement. She reported pain in the projection of mid thoracic spine and she was sent for x-rays of the thoracic spine. Unfortunately she did not go for the the x-ray of the thoracic spine . I will send her again. She reported unsteady gait and change in the posterior. She reports that we and she standing steady and concentrate on some small hand tasks without her awareness she is changing her posture was had and torso twisted to the right side. I will send her to a neurologist to evaluate her on migraines, unsteady gait, and unsteady posture. As of her pain in the neck rib with radiation into the back of the head and down to her shoulders considering that injections did not help her I offered her today Nevro SCS to the patient. I gave her brochure to read. I explained to her need for psychological evaluation. I will schedule her for an appointment after x-rays done and after she decides whether not Nevro SCS is something she would like to do. Prior:? She was referred by orthopedics after evaluation of right shoulder pain and received an intraarticular steroid injection with good relief on 10/09/21. She reports her right shoulder feels great since undergoing the injection and has increased ROM but has had persistent neck pain. She attributes the pain to a fall which she sustained on 07/20/21. She reports the pain radiates up the neck as well as to the shoulders.? However her pain is mostly axial.? She denies any numbness, tingling or weakness. She notes limited ROM and moderate to severe pain with any activity involving lateral rotation of the neck as well as flexion, such as reading a book. She states the pain is constant and rates the p ain a 7-10/29. She denies any injections or surgery for the neck.? Her MRI is dictated as below and on the MRI short of significant arthritis in arthrosis there is no major foraminal or central canal stenosis disc protrusions or extrusions.? I offered this patient to go for bilateral diagnostic C4-C5 C6 medial branch block which she received on 02/24/2022.? The patient reported that she had only minor improvement for 1st 5 hours after the injection.? She reports less than 20% pain improvement.? I doubt that this is indicative of facet joint arthropathy being her pain generator.? I suspect that she still with suffering from results of acute trauma.? I thing that physical therapy is due for this patient I refer her as a new patient with the new subacute [facility] Medical History Alcoholism in remission Anemia Anxiety Asthma Benign essential hypertension Exertional dyspnea Gait abnormality Insomnia Neuropathy Osteoporosis Partial symptomatic epilepsy with complex partial seizures, not intractable, without status epilepticus Peripheral arterial disease Pure hypercholesterolemia Unsteady gait Surgical History History of angioplasty History of cataract surgery History of cholecystectomy History of hysterectomy History of partial gastrectomy History of tubal ligation S/P excision of neuroma Family History Father CVD (cardiovascular disease) Heart disease Hypertension Stroke Mother CVD (cardiovascular disease) Heart disease Asthma Maternal Grandmother No problems noted. Maternal Grandfather No problems noted. Paternal Grandmother No problems noted. Paternal Grandfather No problems noted. Maternal Aunt Tongue cancer Social History Household Members: None Housing: Assisted Living Facility Are you a primary acute care assistant to a significant other at home: No Do you presently have visiting nurse or other home services: No Alcohol intake: former Patient Tobacco Use Status: Never used Tobacco e-Cigarette/Vaping Use: Never Used Second Hand Smoke Exposure: Yes service: No Current occupational status: retired Cognitive needs: No Hearing needs: No Vision needs: Yes Review of Systems Const All systems reviewed & are unremarkable except as noted in HPI and below Eyes Denies photophobia ENT Reports Normal hearing present Neuro Reports Normal hearing present Physical Exam Vital Signs: Last Vital Signs Pulse 60 11/09/22 09:59 Resp 14 11/09/22 09:59 BP 116/56 L 11/09/22 09:59 Pulse Ox 94 11/09/22 09:59 Oxygen Delivery Method Room Air 11/09/22 09:59 BMI result Body Mass Index 18.0 Const General: cooperative, healthy appearing, no acute distress and alert Limitations: No ambulation with cane, No ambulation with walker and No wheelchair HEENT Head: Yes normal to inspection, Yes normocephalic and Yes atraumatic Ears: hearing grossly normal bilaterally Eyes General: appearance normal, both eyes and all related structures Eyelids: Yes eyelids normal Sclerae: sclerae normal Pupils: Equal, round and reactive pupils present EOM: EOMs intact bilaterally Direct Ophthalmoscopy: No photophobia Neck Neck: Yes normal visual inspection, Yes trachea midline and Yes no JVD Chest Chest palpation & inspection: normal inspection of the chest Resp Effort & Inspection: normal respiratory effort, able to speak in complete sentences and no audible wheezes Cardio Jugular venous distension: no JVD Palpation: other (no appreciable rhythmic abnormalities) Peripheral pulses: radial pulses present (no palpable rhythmic abnormalities detected) bilateral and other Back/Spine/Pelvis Other: Patient with moderately decreased cervical ROM in all planes.Spurling compression test negative. Pain is unchanged with Spurling manuever with retraction. Elvey's tension test negative. DTR intact and symmetrical. Lhermitte's test negative. Patient demonstrated 5/5 motor strength of bilateral upper extremities. Significant tightness throughout cervical muscles. Cervical Spine: pain with cervical ROM and Cervical spine tenderness Neuro General: gait normal, moves all extremities and Normal light touch and pain sensation Cranial nerves: Yes Equal, round and reactive pupils present, Yes Bilaterally intact EOM present and Yes Normal hearing present Cognition (Neuro): normal cognition Gait exam (Neuro): Normal gait present Motor exam (neuro): 5/5 motor strength present throughout Extrem General: Yes normal to inspection Assessment & Plan Assessment & Plan (1) Spondylosis of thoracic spine: Code(s): M47.814 - Spondylosis without myelopathy or radiculopathy, thoracic region (2) Cervical radiculitis: Code(s): M54.12 - Radiculopathy, cervical region (3) Degenerative disc disease, cervical: Code(s): M50.30 - Other cervical disc degeneration, unspecified cervical region (4) Neck pain: Code(s): M54.2 - Cervicalgia (5) Osteoporosis: Code(s): M81.0 - Age-related osteoporosis without current pathological fracture Qualifiers: Osteoporosis type: age-related Presence of current pathological fracture: without current pathological fracture Qualified Code(s): M81.0 - Age- related osteoporosis without current pathological fracture (6) Unsteady gait: Code(s): R26.81 - Unsteadiness on feet (7) Cervical spondylosis: Code(s): M47.812 - Spondylosis without myelopathy or radiculopathy, cervical region (8) Balance disorder: Code(s): R26.89 - Other abnormalities of gait and mobility (9) Migraine: Code(s): G43.909 - Migraine, unspecified, not intractable, without status migrainosus Qualifiers: Intractability: not intractable Migraine type: unspecified Status migrainosus presence: without status migrainosus Qualified Code(s): G43.909 - Migraine, unspecified, not intractable, without status migrainosus Plan Plan of care as above. Brochure never SCS was given to the patient x-ray of the thoracic spine is scheduled again to the patient. If she wants to proceed with Nevro SCS she will give us a call and we will schedule her for psychological evaluation. History of vomiting in hallucinations on codeine and morphine are noted and the patient might not be a good candidate for chronic opioid therapy. She reports difficulty posture and problem with her gait. I will send her to Neurology for the consultation. Maybe brain MRI is due for this patient. Orders: Orders XR thoracic spine 3V Today M47.814 - Spondylosis without myelopathy or radiculopathy, thoracic region Referrals Neurology Referral G43.909 - Migraine, unspecified, not intractable, without status migrainosus, R26.81 - Unsteadiness on feet, R26.89 - Other abnormalities of gait and mobility Coding Level of Care Code Est Pt Level 4 (71700) Diagnoses Spondylosis of thoracic spine M47.814 Cervical radiculitis M54.12 Degenerative disc disease, cervical M50.30 Neck pain M54.2 Osteoporosis M81.0 Osteoporosis type: age-related Presence of current pathological fracture: without current pathological fracture Unsteady gait R26.81 Cervical spondylosis M47.812 Balance disorder R26.89 Migraine G43.909 Intractability: not intractable Migraine type: unspecified Status migrainosus presence: without status migrainosus
[2022-11-09 09:59] VITALS: BP 116/56; PULSE 60; RESP 14; O2SAT 94; BMI 18.0
== END 2022-11-09 10:14 | disposition home or self-care (01) ==
PROVIDERS: PCP Internal Medicine; Visit Provider Anesthesiology
DX: M47.814 Spondylosis without myelopathy or radiculopathy, thoracic region (principal); M54.12 Radiculopathy, cervical region; M50.30 Other cervical disc degeneration, unspecified cervical region; M81.0 Age-related osteoporosis without current pathological fracture; R26.81 Unsteadiness on feet; M47.812 Spondylosis without myelopathy or radiculopathy, cervical region; R26.89 Other abnormalities of gait and mobility; G43.909 Migraine, unspecified, not intractable, without status migrainosus
CPT/HCPCS: 99214

== ENCOUNTER → 2022-11-09 09:49 | Outpatient (BNVA) | payer MEDICARE, MEDICAID, SELFPAY | PROVIDERS: PCP Internal Medicine; Visit Provider Anesthesiology | DX: M50.30 Other cervical disc degeneration, unspecified cervical region (principal); M54.12 Radiculopathy, cervical region; M47.814 Spondylosis without myelopathy or radiculopathy, thoracic region; M47.812 Spondylosis without myelopathy or radiculopathy, cervical region; M81.0 Age-related osteoporosis without current pathological fracture; R26.81 Unsteadiness on feet; G43.709 Chronic migraine without aura, not intractable, without status migrainosus | CPT/HCPCS: 99212 ==

== ENCOUNTER 2022-11-14 11:55 | Emergency (ER) | payer MEDICARE, MEDICAID, SELFPAY ==
[2022-11-14 11:56] VITALS: BP 136/74; PULSE 93; RESP 18; TEMP 37; O2SAT 93; BMI 18.5
--- NOTE | 2022-11-14 11:57 | ED_ITS ---
HPI - Female Genitourinary General Chief complaint: Urogenital-Female Stated complaint: vaginal bleeding Time Seen by Provider: 11/14/22 13:01 Source: patient Mode of arrival: ambulatory Limitations: no limitations History of Present Illness HPI Narrative: Patient is a 77-year-old female presenting the emergency department with onset of painless hematuria which began yesterday morning. She denies any dysuria or abdominal pain, does report mild right lower back pain. Denies fevers. Denies any nausea, vomiting, diarrhea, constipation. States that she contacted her PCP yesterday but never received a return phone call. When she contacted their office this morning the on-call physician advised her to come to the ED for evaluation. MD elicited complaint: other (hematuria) Onset (ago): day(s) Vaginal discharge: none Vaginal bleeding: none Urinary symptoms: Hematuria Associated symptoms: denies other symptoms Treatment prior to arrival: none Sexual activity: No Patient : No Related Data Home Medications Medication Instructions Recorded Confirmed aspirin 81 mg tablet,delayed 81 mg PO DAILY 03/11/20 07/09/22 release clonazepam 0.5 mg tablet 0.5 mg PO BID 03/11/20 07/09/22 clonazepam 1 mg tablet 1 mg PO BEDTIME 03/11/20 07/09/22 lamotrigine 200 mg tablet 200 mg PO DAILY 03/11/20 07/09/22 trazodone 100 mg tablet 100 mg PO DAILY 03/11/20 07/09/22 Previous Rx's Medication Instructions Recorded fluticasone propionate 50 2 spray intranasal DAILY PRN for 08/08/21 mcg/actuation nasal allergies #48 mL spray,suspension inhalational spacing device #10 ea 06/10/22 (Aerochamber MV spacer) duloxetine 30 mg capsule,delayed 30 mg PO BID #180 caps 06/11/22 release tizanidine 2 mg tablet 2 mg PO Q8H PRN muscle spasticity 07/09/22 30 days #90 tabs Flovent HFA 110 mcg/actuation 1 puff PO BID #12 ea 07/21/22 aerosol inhaler (fluticasone propionate) simvastatin 20 mg tablet 20 mg PO BEDTIME #90 tabs 08/18/22 albuterol sulfate 90 mcg/actuation 2 puff PO Q6H PRN for muscle spasm 09/24/22 aerosol inhaler #8.5 ea topiramate 25 mg tablet 25 mg PO BEDTIME #90 tabs 09/25/22 sertraline 50 mg tablet 50 mg PO DAILY 90 days #90 tabs 10/22/22 clopidogrel 75 mg tablet 75 mg PO DAILY #90 tabs 11/13/22 cefpodoxime 100 mg tablet 100 mg PO BID #14 tabs 11/14/22 Allergies Allergy/AdvReac Type Severity Reaction Status Date / Time morphine [Morphine] Allergy Severe VOMITING/LONGORIA Verified 11/14/22 12:02 LLUCINATION S codeine [Codeine] Allergy Intermediate VOMITING/HALLUCINATIONS, Verified 11/14/22 12:02 nause/extended abdomen capsaicin [CAPSAICIN] Allergy Unknown BURNING Verified 11/14/22 12:02 latex Allergy Unknown Unknown Verified 11/14/22 12:02 atorvastatin AdvReac Unknown fever, Verified 11/09/22 10:00 chills, abd pain, numbness adhesives Allergy Unknown rash Uncoded 11/14/22 12:02 bacitracin Allergy Unknown redness Uncoded 07/09/22 09:06 and itching Review of Systems Review of Systems: As per HPI. Yes all other systems are reviewed and are negative Constitutional: Constitutional: Reports as per HPI PMF Past Medical History Medical History Alcoholism in remission Anemia Anxiety Asthma Benign essential hypertension Exertional dyspnea Gait abnormality Insomnia Neuropathy Osteoporosis Partial symptomatic epilepsy with complex partial seizures, not intractable, without status epilepticus Peripheral arterial disease Pure hypercholesterolemia Unsteady gait Surgical History History of angioplasty History of cataract surgery History of cholecystectomy History of hysterectomy History of partial gastrectomy History of tubal ligation S/P excision of neuroma Family History Family History Father CVD (cardiovascular disease) Heart disease Hypertension Stroke Mother CVD (cardiovascular disease) Heart disease Asthma Maternal Grandmother No problems noted. Maternal Grandfather No problems noted. Paternal Grandmother No problems noted. Paternal Grandfather No problems noted. Maternal Aunt Tongue cancer Social History Social History Household Members: None Housing: Assisted Living Facility Are you a primary health care legal assistant to a significant other at home: No Do you presently have visiting nurse or other home services: No Alcohol intake: former Patient Tobacco Use Status: Never used Tobacco e-Cigarette/Vaping Use: Never Used Second Hand Smoke Exposure: Yes Advance Directives Date on File: 06/12/21 service: No Current occupational status: retired Cognitive needs: No Hearing needs: No Vision needs: Yes Physical Exam Vital Signs: Vital Signs: Last Vital Signs Temp 98.6 F 11/14/22 11:56 Pulse 93 11/14/22 11:56 Resp 18 11/14/22 11:56 BP 136/74 11/14/22 11:56 Pulse Ox 93 11/14/22 11:56 O2 Del Method Room Air 11/14/22 11:56 BMI result Body Mass Index 18.5 Vital signs have been reviewed and appear to be correct. Blood pressure normal. Heart rate normal. Respiratory rate normal. Temperature normal. Oxygen saturation normal. Const: General: cooperative, healthy appearing and no acute distress Orientation/consciousness: oriented to person, oriented to place, oriented to time and patient oriented x3 Limitations: no limitations HEENT: Head: Yes normocephalic and Yes atraumatic Ears: external ears normal General nose exam: Normal external nose present Face and sinus: Yes face symmetric Mouth: oropharynx normal and moist mucous membranes Throat: Yes uvula midline Eyes: Pupils: Equal, round and reactive pupils present Neck: Neck: Yes normal visual inspection, Yes no meningeal signs and Yes supple Resp: Effort & Inspection: normal respiratory effort and able to speak in complete sentences Auscultation: clear to auscultation bilaterally Cardio: Rate: regular rate Rhythm: regular rhythm Heart sounds: S1 normal heart sound present and S2 normal heart sound present GI: Palpation (GI): Soft to palpation and nontender Auscultation: normoactive bowel sounds : General: Yes no CVA tenderness Back/Spine/Pelvis: Back: no CVA tenderness Thoracic/Lumbar Spine: thoracic and lumbar spine normal to inspection, paraspinal muscle tenderness on the right in the upper lumbar and in the mid lumbar, No thoracic spinal tenderness and No lumbar spinal tenderness Skin: General skin exam: elasticity normal and turgor normal Neuro: General: oriented to person, oriented to place, oriented to time, p atient oriented x3, gait normal, tone normal, moves all extremities, Normal light touch and pain sensation, no meningeal signs, no focal motor deficits, CN's II-XI intact bilaterally, normal sensation to monofilament and deep tendon reflexes 2+ bilaterally Cranial nerves: Yes Equal, round and reactive pupils present Cognition (Neuro): normal cognition Extrem: General: Yes full ROM, Yes no pedal edema and Yes no calf tenderness Psych: Mental Status: mental status grossly normal Affect: normal affect Thought process: Normal thought process present Course Course Course Narrative: This is an RME: Additional HPI, ROS, PE not included below will be deferred to primary provider. Patient is a 77-year-old female who presents to the emergency department for evaluation of lower abdominal pain described as a dull ache, hematuria, diffuse lower back pain, and associated nausea. Denies dysuria, fevers, chills, vomiting, vaginal bleeding. Symptom onset yesterday. Plan: labs, urinalysis Medical Decision Making Medical Decision Making [facility] Narrative: Patient is a 77-year-old female presenting the emergency department with onset of hematuria which began yesterday morning. On exam patient is awake, A+Ox3, VS WNL, afebrile, normal neurological exam without focal deficits, abdomen soft and nontender, no guarding or rebound tenderness, no CVA tenderness, mild right lumbar paraspinal tenderness to palpation. Given reported symptoms and physical exam findings, initial differential includes UTI/pyelonephritis, urolithiasis, malignancy/mass. UA notable for trace leukocytes, positive nitrates, 3-5 rbc's. No leukocytosis or anemia on labs. Will treat patient for UTI at this time but discussed with patient that she will need additional follow-up with her primary care provider. Imaging deferred is abdomen soft and nontender, no CVA tenderness. Return precautions discussed at bedside. All questions answered, patient verbalized understanding of and agreement with plan. Differential Diagnosis Differential Diagnoses: The differential diagnosis associated with the presentation includes As per [facility]. Lab Data [facility] Lab Attestation statement: I reviewed the patient's lab results. As per [facility]. 11/14/22 12:14 11/14/22 12:14 Labs: Lab Results 11/14/22 11/14/22 11/14/22 Range/Units 12:14 12:14 12:14 WBC 4.3 L (4.8-10.8) X10*3/uL RBC 3.97 L (4.20-5.50) X10*6/uL Hgb 12.6 (12.0-16.0) g/dl Hct 38.3 (37.0-47.0) % MCV 96.5 (80.0-98.0) fL MCH 31.7 (27.0-33.0) pg MCHC 32.9 (31.0-35.0) g/dl RDW 12.6 (11.0-16.0) % Plt Count 213 (160-400) X10*3/uL MPV 9.3 L (9.4-12.3) fL Immature Gran % (Auto) 0.2 (0.0-0.4) % Neut % (Auto) 61.9 (45-73) % Lymph % (Auto) 25.1 (20-40) % [place] % (Auto) 8.4 (2-11) % Eos % (Auto) 3.5 (0-4) % Baso % (Auto) 0.9 (0-2) % Lymph # (Auto) 1.1 L (1.2-4.9) X10*3/uL [place] # (Auto) 0.4 (0.1-1.2) X10*3/uL Eos # (Auto) 0.2 (0.0-0.4) X10*3/uL Baso # (Auto) 0.0 (0.0-0.2) X10*3/uL Abs Immat Gran (auto) 0.01 (0.00-0.03) X10*3/uL Absolute Neuts (auto) 2.6 (2.0-8.3) x10*3/uL Absolute Nucleated RBC 0.000 (0.0-0.012) X10*3/uL Nucleated RBC % (auto) 0.0 (0.0-0.2) /100WBC Sodium 142 (135-145) mmol/L Potassium 4.0 (3.3-5.1) mmol/L Chloride 108 (96-108) mmol/L Carbon Dioxide 26 (22-29) mmol/L Anion Gap 12 (12-20) BUN 13 (9-16) mg/dL Creatinine 0.78 (0.5-1.4) mg/dL Estim Creat Clear Calc 48.0 Estimated GFR > 60 Random Glucose 115 (60-115) mg/dL Calcium 9.2 (8.4-10.2) mg/dL Total Bilirubin 0.4 (0.0-1.0) mg/dL AST 18 (5-31) U/L ALT 18 (0-31) U/L Alkaline Phosphatase 67 (39-117) U/L Total Protein 5.9 L (6.5-8.0) g/dL Albumin 4.0 (3.5-5.0) g/dL Lipase 10 (8-78) U/L Urine Color Swisher Urine Appearance Hazy Urine pH 6.0 (5.0-9.0) Ur Specific [place] 1.020 (1.005-1.025) Urine Protein Trace (Neg-Trace) mg/dL Urine Glucose (UA) Negative (Negative) mg/dL Urine Ketones Negative (Negative) mg/dL Urine Blood Trace (Negative) Urine Nitrite Positive H (Negative) Ur Leukocyte Esterase Trace H (Negative) Urine RBC 3-5 H (0-2) /HPF Urine WBC 0-5 (0-5) /HPF Ur Squamous Epith Cells 0-2 (0-2) /HPF Calcium Oxalate Crystal Present Urine Bacteria None Seen (None Seen) Hyaline Casts 0-2 (0-2) /LPF External Record Review External record reviewed: Inpatient record, Office record and Outpatient record Prescription Management I considered prescription management with: Antibiotic Discharge Plan Discharge Clinical Impression: Urinary tract infection, Painless hematuria Patient Disposition: Home, Self-Care Instructions: Urinary Tract Infection in Women (DC), Hematuria (ED) Additional Instructions: You have been evaluated in the emergency department today for your urinary symptoms. Your evaluation, including urinalysis, suggests that your symptoms are due to urinary tract infection. Please take your prescribed antibiotics for the full course of medication as directed. Please follow-up with your primary care provider within 2 days and be sure to notify them of the blood in your urine. Return to the emergency department if you experience fevers 100.4? F or greater, worsening or uncontrolled pain, vomiting, flank pain, or for any other concerning symptoms. Prescriptions: New cefpodoxime 100 mg tablet 100 mg PO BID Qty: 14 0RF Rx Instructions: must administer with a meal/food No Action fluticasone propionate 50 mcg/actuation spray,suspension 2 spray intranasal DAILY PRN (Reason: for allergies) Qty: 48 1RF (DME) Aerochamber MV Spacer See Rx Instructions .Route Qty: 10 0RF Rx Instructions: Use with respiratory inhaler as directed duloxetine 30 mg capsule,delayed release(DR/EC) 30 mg PO BID Qty: 180 5RF Flovent HFA 110 mcg/actuation HFA aerosol inhaler 1 puff PO BID Qty: 12 5RF simvastatin 20 mg tablet 20 mg PO BEDTIME Qty: 90 2RF albuterol sulfate 90 mcg/actuation HFA aerosol inhaler 2 puff PO Q6H PRN (Reason: for muscle spasm) Qty: 8.5 2RF topiramate 25 mg tablet 25 mg PO BEDTIME Qty: 90 0RF sertraline 50 mg tablet 50 mg PO DAILY 90 Days Qty: 90 1RF clopidogrel 75 mg tablet 75 mg PO DAILY Qty: 90 1RF clonazepam 1 mg tablet 1 mg PO BEDTIME clonazepam 0.5 mg tablet 0.5 mg PO BID lamotrigine 200 mg tablet 200 mg PO DAILY trazodone 100 mg tablet 100 mg PO DAILY aspirin 81 mg tablet,delayed release (DR/EC) 81 mg PO DAILY tizanidine 2 mg tablet 2 mg PO Q8H PRN (Reason: muscle spasticity) 30 Days Qty: 90 5RF Rx Instructions: Take 1, or 1&1/2, or even 2 pills at night. Do not take trazodone when you take this medication.
[2022-11-14 12:21] LABS: MANUAL DIFF FLAG NO
[2022-11-14 12:22] LABS: Basophils Percent Auto 0.9 % (0-2); Eosinophils Absolute Auto 0.2 X10*3/uL (0.0-0.4); Eosinophils Percent Auto 3.5 % (0-4); Hematocrit 38.3 % (37.0-47.0); Hemoglobin 12.6 g/dl (12.0-16.0); Imm Gran Abs Auto 0.01 X10*3/uL (0.00-0.03); Imm Gran Pct Auto 0.2 % (0.0-0.4); Lymphocytes Absolute Auto 1.1 X10*3/uL (1.2-4.9); Lymphocytes Percent Auto 25.1 % (20-40); Mean Corpuscular HGB Conc 32.9 g/dl (31.0-35.0); Mean Corpuscular Hemoglobin 31.7 pg (27.0-33.0); Mean Corpuscular Volume 96.5 fL (80.0-98.0); Mean Platelet Volume 9.3 fL (9.4-12.3); Monocytes Absolute Auto 0.4 X10*3/uL (0.1-1.2); Monocytes Percent Auto 8.4 % (2-11); Neutrophils Absolute Auto 2.6 x10*3/uL (2.0-8.3); Neutrophils Percent Auto 61.9 % (45-73); Platelet Count 213 X10*3/uL (160-400); Red Blood Count 3.97 X10*6/uL (4.20-5.50); Red Cell Distribution Width 12.6 % (11.0-16.0); White Blood Count 4.3 X10*3/uL (4.8-10.8)
[2022-11-14 12:30] LABS: Appearance Urine Hazy; Color Urine Orange; Glucose Urine UA Negative (Negative); Leukocyte Esterase Urine Trace (Negative); Nitrite Urine Positive (Negative); UMIC TRIGGER UACC YES; Urine Blood Trace (Negative); Urine Ketones Negative (Negative); Urine Protein Trace mg/dL (Neg-Trace)
[2022-11-14 12:37] LABS: Alanine Aminotransferase 18 U/L (0-31); Alkaline Phosphatase 67 U/L (39-117); Anion Gap 12 (12-20); Aspartate Amino Transferase 18 U/L (5-31); Bilirubin Total 0.4 mg/dL (0.0-1.0); Blood Urea Nitrogen 13 mg/dL (9-16); Calcium 9.2 mg/dL (8.4-10.2); Carbon Dioxide 26 mmol/L (22-29); Chloride 108 mmol/L (96-108); Estimated Glomerular Filt Rate > 60; Glucose Random 115 mg/dL (60-115); Lipase 10 U/L (8-78); Sodium 142 mmol/L (135-145); Total Protein 5.9 g/dL (6.5-8.0)
[2022-11-14 12:49] LABS: Bacteria Urine None Seen (None Seen); Calcium Oxalate Crystals Urine Present; Hyaline Casts Urine 0-2 /LPF (0-2); Squamous Epithelial Cell Urine 0-2 /HPF (0-2); UACC Culture Trigger YES; WBC Urine 0-5 /HPF (0-5)
== END 2022-11-14 13:45 | disposition home or self-care (01) ==
PROVIDERS: Nurse Practitioner Family; Emergency Provider Student in an Organized Health Care Education/Training Program; PCP Internal Medicine
DX: N39.0 Urinary tract infection, site not specified (principal); R31.9 Hematuria, unspecified; R10.30 Lower abdominal pain, unspecified; I10 Essential (primary) hypertension; E78.00 Pure hypercholesterolemia, unspecified; Z79.82 Long term (current) use of aspirin; Z79.899 Other long term (current) drug therapy
CPT/HCPCS: 36415; 80053; 81001; 83690; 85025; 87086; 99282; 99283

== ENCOUNTER → 2022-12-10 13:11 | Outpatient (BNVA) | payer MEDICARE, MEDICAID, SELFPAY | PROVIDERS: PCP Internal Medicine; Visit Provider Anesthesiology | DX: Z76.89 Persons encountering health services in other specified circumstances (principal) | CPT/HCPCS: 99211 ==

== ENCOUNTER → 2022-12-17 12:57 | Outpatient (BNVA) | payer MEDICARE, MEDICAID, SELFPAY | PROVIDERS: PCP Internal Medicine; Visit Provider Anesthesiology ==

== ENCOUNTER 2023-01-08 11:38 | Day surgery (SDC) | payer MEDICARE, MEDICAID, SELFPAY ==
[2023-01-06 11:02] VITALS: BMI 17.9
--- NOTE | 2023-01-07 11:00 | P.CONAN_ITS ---
Documented by User: Aura Chairez NP 01/07/23 11:03 HPI - Anesthesia Eval Consult details Narrative: 77yo F for Spinal Cord Stimulation Trial Plavix for PAD PMFSH Active Problems Active Problems: All Active Problems (Updated 12/11/22 @ 13:33 by Bailey Diamond MD) Spondylosis of thoracic spine (Acute) Eye discomfort (Acute) Vision problems (Acute) Eye abnormalities (Acute) Cervical spondylosis (Acute) Cervical radiculitis (Acute) Muscle spasms of neck (Acute) Degenerative disc disease, cervical (Acute) Spondylosis of cervical region without myelopathy or radiculopathy (Acute) Cervical strain (Acute) Neck pain (Acute) Rotator cuff tendonitis (Acute) Biceps tendonitis on right (Acute) Right shoulder pain (Acute) Thoracic back pain (Acute) Osteopenia (Acute) Neck muscle strain (Acute) Migraine (Acute) Encounter for Medicare annual wellness exam (Acute) Lower extremity pain, bilateral (Acute) Syncopal episodes (Acute) Balance disorder (Acute) Hospital discharge follow-up (Acute) Anxiety (Acute) Insomnia (Acute) Osteoporosis (Acute) Anemia (Chronic) Gait abnormality (Acute) Partial symptomatic epilepsy with complex partial seizures, not intractable, without status epilepticus (Acute) Asthma (Acute) Pure hypercholesterolemia (Acute) Peripheral arterial disease (Acute) Unsteady gait (Acute) Neuropathy (Acute) Benign essential hypertension (Acute) 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) Exertional dyspnea (Acute) Past Medical History Medical History (Updated 12/11/22 @ 13:33 by Bailey Diamond MD) Anxiety Insomnia Osteoporosis Anemia Gait abnormality Partial symptomatic epilepsy with complex partial seizures, not intractable, without status epilepticus Asthma Pure hypercholesterolemia Peripheral arterial disease Unsteady gait Neuropathy Benign essential hypertension Alcoholism in remission Exertional dyspnea Family History Family History Father CVD (cardiovascular disease) Heart disease Hypertension Stroke Mother CVD (cardiovascular disease) Heart disease Asthma Maternal Grandmother No problems noted. Maternal Grandfather No problems noted. Paternal Grandmother No problems noted. Paternal Grandfather No problems noted. Maternal Aunt Tongue cancer Surgical History Surgical History (Updated 01/06/23 @ 10:56 by Lisa Casanova RN) Hx of foot surgery Hx of nasal septoplasty History of esophagogastroduodenoscopy (EGD) H/O colonoscopy History of angioplasty History of partial gastrectomy History of cholecystectomy History of cataract surgery History of hysterectomy History of tubal ligation S/P excision of neuroma Social History Social History Household Members: None Housing: Assisted Living Facility Are you a primary rn patient care to a significant other at home: No Do you presently have visiting nurse or other home services: No Alcohol intake: former Patient Tobacco Use Status: Never used Tobacco e-Cigarette/Vaping Use: Never Used Second Hand Smoke Exposure: Yes Advance Directives Date on File: 06/12/21 service: No Current occupational status: retired Cognitive needs: No Hearing needs: No Vision needs: Yes Meds Allergies Allergy/AdvReac Type Severity Reaction Status Date / Time morphine [Morphine] Allergy Severe VOMITING/LONGORIA Verified 12/17/22 13:08 LLUCINATION S codeine [Codeine] Allergy Intermediate VOMITING/HALLUCINATIONS, Verified 12/17/22 13:08 nause/extended abdomen latex Allergy Unknown Unknown Verified 12/17/22 13:08 atorvastatin AdvReac Intermediate fever, Verified 01/06/23 11:03 chills, abd pain, numbness capsaicin [CAPSAICIN] AdvReac Intermediate BURNING Verified 01/06/23 11:03 bacitracin Allergy Intermediate redness Uncoded 01/06/23 11:03 and itching adhesives Allergy Mild rash Uncoded 01/06/23 11:03 Home Medications Medication Instructions Recorded Confirmed Last Taken Type aspirin 81 mg tablet,delayed 81 mg PO DAILY 03/11/20 01/06/23 Unknown History release clonazepam 0.5 mg tablet 0.5 mg PO BID 03/11/20 01/06/23 Unknown History clonazepam 1 mg tablet 1 mg PO BEDTIME 03/11/20 01/06/23 Unknown History lamotrigine 200 mg tablet 200 mg PO DAILY 03/11/20 01/06/23 Unknown History trazodone 100 mg tablet 100 mg PO DAILY 03/11/20 01/06/23 Unknown History Exam Exam Date and Time: January 07, 2023 1100 Height,Weight and Vital Signs: Height 5 ft 6 in Weight 50.349 kg Pertinent Lab Results Pertinent Lab Results: Laboratory Tests 11/14/22 12:14 WBC 4.3 L Hgb 12.6 Hct 38.3 Plt Count 213 Sodium 142 Potassium 4.0 Chloride 108 Carbon Dioxide 26 BUN 13 Creatinine 0.78 Assessment and Plan Assessment Anesthesia Assessment: Chart Reviewed Documented by User: Arjun Pickard MD 01/08/23 10:28 [facility] Past Medical History Medical History (Updated 12/11/22 @ 13:33 by Bailey Diamond MD) Anxiety Insomnia Osteoporosis Anemia Gait abnormality Partial symptomatic epilepsy with complex partial seizures, not intractable, without status epilepticus Asthma Pure hypercholesterolemia Peripheral arterial disease Unsteady gait Neuropathy Benign essential hypertension Alcoholism in remission Exertional dyspnea Family History Family History Father CVD (cardiovascular disease) Heart disease Hypertension Stroke Mother CVD (cardiovascular disease) Heart disease Asthma Maternal Grandmother No problems noted. Maternal Grandfather No problems noted. Paternal Grandmother No problems noted. Paternal Grandfather No problems noted. Maternal Aunt Tongue cancer Family history of problems with anesthesia: No Surgical History Surgical History (Updated 01/06/23 @ 10:56 by Lisa Casanova RN) Hx of foot surgery Hx of nasal septoplasty History of esophagogastroduodenoscopy (EGD) H/O colonoscopy History of angioplasty History of partial gastrectomy History of cholecystectomy History of cataract surgery History of hysterectomy History of tubal ligation S/P excision of neuroma History of Problems with Anesthesia: No Social History Social History Household Members: None Housing: Assisted Living Facility Are you a primary rn patient care to a significant other at home: No Do you presently have visiting nurse or other home services: No Alcohol intake: former Patient Tobacco Use Status: Never used Tobacco e-Cigarette/Vaping Use: Never Used Second Hand Smoke Exposure: Yes Advance Directives Date on File: 06/12/21 service: No Current occupational status: retired Cognitive needs: No Hearing needs: No Vision needs: Yes Meds Allergies Allergy/AdvReac Type Severity Reaction Status Date / Time morphine [Morphine] Allergy Severe VOMITING/LONGORIA Verified 12/17/22 13:08 LLUCINATION S codeine [Codeine] Allergy Intermediate VOMITING/HALLUCINATIONS, Verified 12/17/22 13:08 nause/extended abdomen latex Allergy Unknown Unknown Verified 12/17/22 13:08 atorvastatin AdvReac Intermediate fever, Verified 01/06/23 11:03 chills, abd pain, numbness capsaicin [CAPSAICIN] AdvReac Intermediate BURNING Verified 01/06/23 11:03 bacitracin Allergy Intermediate redness Uncoded 01/06/23 11:03 and itching adhesives Allergy Mild rash Uncoded 01/06/23 11:03 Home Medications Medication Instructions Recorded Confirmed Last Taken Type aspirin 81 mg tablet,delayed 81 mg PO DAILY 03/11/20 01/06/23 Unknown History release clonazepam 0.5 mg tablet 0.5 mg PO BID 03/11/20 01/06/23 Unknown History clonazepam 1 mg tablet 1 mg PO BEDTIME 03/11/20 01/06/23 Unknown History lamotrigine 200 mg tablet 200 mg PO DAILY 03/11/20 01/06/23 Unknown History trazodone 100 mg tablet 100 mg PO DAILY 03/11/20 01/06/23 Unknown History Exam Airway Mallampati Class: II TM Dist: <=3cm Neck ROM: Limited Heart: rrr Lungs: cta Assessment and Plan Assessment Anesthesia Assessment: Anesthesia Plan Discussed Final Anesthetic Review Family History of Problems with Anesthesia: No History of Problems with Anesthesia: No NPO: Yes ASA Class: III Final Preanesthetic Review: No Changes in Pt Med Stat, Meds/Allgs Chart Reviewed, Consent Obtained/Reviewed and Anes Risks/Benef Reviewed Patient Risk: Intermediate Procedure Risk: Intermediate Anesthetic Plan Anesthetic Plan: MAC: and Agree w/ Assess. and Plan Disposition: Standard PACU
[2023-01-08] VITALS (8 sets, daily range): BP systolic 116–142; BP diastolic 48–69; PULSE 56–75; RESP 16–18; TEMP 36.1–36.6; O2SAT 94–100; BMI 17.1
--- NOTE | ~2023-01-08 | FL_ITS ---
EXAMINATION: XR FLUOROSCOPY WITH IMAGES CLINICAL INFORMATION: Spinal STIM trial. COMPARISON: None available. TECHNIQUE: Fluoroscopy Supervised By: Dr. Elia Sebastian. Fluoroscopy Time: 6.3 minutes. Cumulative Dose: 66.9 mGy. DAP: 6.97 Gycm2. Images: 4. FINDINGS: Images demonstrate 2 leads projecting over the cervical spinal canal FL/FL guidance in OR IMPRESSION: Fluoroscopy guidance for pain management procedure
--- NOTE | 2023-01-08 11:47 | MHC.SHP ---
Pre-Procedural Eval Section A Date of Service: 01/08/23 The patient is an INPATIENT: No Changes since office visit: Yes Patient answered all questions The History & Physical has been completed within 30 days and I have reviewed it.: No Section B Chief Complaint: Spondylosis without myelopathy or radiculopathy, Details of Present Illness: as Above Relevant Family History (Specify if Yes): No Relevant Social History: None Present Medications: see Short Stay Collaborative assessment Medical History: No relevant PMH History of Previous Operations: No relevant previous surgery Allergies: Allergies Allergy/AdvReac Type Severity Reaction Status Date / Time morphine [Morphine] Allergy Severe VOMITING/LONGORIA Verified 12/17/22 13:08 LLUCINATION S codeine [Codeine] Allergy Intermediate VOMITING/HALLUCINATIONS, Verified 12/17/22 13:08 nause/extended abdomen latex Allergy Unknown Unknown Verified 12/17/22 13:08 atorvastatin AdvReac Intermediate fever, Verified 01/06/23 11:03 chills, abd pain, numbness capsaicin [CAPSAICIN] AdvReac Intermediate BURNING Verified 01/06/23 11:03 bacitracin Allergy Intermediate redness Uncoded 01/06/23 11:03 and itching adhesives Allergy Mild rash Uncoded 01/06/23 11:03 Review of Systems Sugical H&P ROS: Negative: Constitution, Cardiovascular, Respiratory, Neurological, Psychiatric, Hem-Onc, Allergic/Immunologic, Gastrointestinal, Genitourinary, Musculoskeletal, Integumentary, Endocrine and Eyes/Ears/Nose/Throat Exam Surgical H&P Exam: Normal: HEENT, Normal: Heart, Normal: Lungs, Normal: Extremities, Normal: Abdomen, Normal: Skin and Normal: Neurological Plan Diagnosis/Plan: Unchanged I have reviewed the history and physical and performed a pertinent physical examination on my patient. No changes have occurred unless specified. Time Spent With Patient Time: Total time managing care of this patient today ____ minutes.
[2023-01-08] MEDS: Lactated Ringers 1,000 ML 100 ML IVCONT (12:13)
--- NOTE | 2023-01-08 14:05 | PM.OP ---
Brief Operative Note Date of Service: 01/08/23 Pre-op diagnosis: Spondylosis cervical spine, spondylosis thoracic spine, chronic pain syndrome. Procedure: Trial of Nevro SCS cervical position C1 through C3. Surgeon: Elia Sebastian MD Was an Assistant Store Director used for this Procedure?: No Estimated blood loss (mL): 1 Condition: stable Disposition: PACU
--- NOTE | 2023-01-08 14:06 | P.OP_ITS ---
Operative Note Operative Note Date of Service: 01/08/23 Narrative: Cary is 77 years old very pleasant female who came to the operating room for trial of spinal cord stimulator Nevro for the treatment of spondylosis of cervical and thoracic spine. ?Preoperatively patient received ? cefazolin 2 g approximately Twenty minutes before the procedure. After obtaining informed consent the patient was brought to the operating room, she was positioned prone on operating table, ASA monitor were applied and the patient was sedated. ?Time-out was performed delineating correct site, side, the nature of the procedure, patient's allergy, preoperative antibiotic if needed.? All operating room staff was participating in OR time-out procedure. Patient's entire back was prepped with Chloraprep twice and draped with full body fenestrated laparoscopy drape.? Sterilely draped C-arm was brought over operating field and square picture of the ? T10, T11 and T12 vertebrae? were demonstrated on the screen.? ?Attention FIRST? was concentrated on the T10-T11 epidural interspace.? The location of the projection of the right pedicle center of the T12 vertebra was found on the skin using C-arm.? This location was injected with mixture of lidocaine 2% and Marcaine 0.5% - 5 cc.? After that 11 blade was used to make a pino on the skin.? 10 cm 14 gauge? introducer epidural needle was inserted through the pino and advanced to T10-T11 epidural interspace.? The advancement of the needle was performed on anterior posterior and lateral views.?Loss of resistance to air? technique were used to locate epidural space., guitar wire was used to confirm epidural space,epidural lead was inserted through the needle and? advanced to the projection of the top portion of the odontoid process of C2 vertebra. ? .? After that? the location of the projection of the LEFT pedicle center of the? T12 vertebra was found on the skin using C-arm.? This location was injected with mixture of lidocaine 2% and Marcaine 0.5% 5 cc.? After that 11 blade was used to make a pino on the skin.? 10 cm 14 gauge introducer epidural needle was inserted through the pino and advanced to [id number] interspace.? The advancement of the needle was performed on anterior posterior and lateral views.? Guitar wir e and loss of resistance to air technique were used to locate epidural space.? When guitar wire was spread in the epidural fashion, epidural lead was inserted through the needle and advanced to the middle of? top of C3 epidural interspace slightly? left to the existing electrode. Lateral view demonstrated both electrodes in the posterior epidural space. Impedance was checked? and it was found to be satisfactory.? Posterior lead placement was verified by lateral x-ray ?The needles were withdrawn, the stylette wires were removed from the epidural leads.? The anchoring devices were dislodged on the leads and advanced to the level of the skin.? The anchoring devices were sutured with two 0-0 ?Silk sutures per each anchor to the skin of the patient. The central fixation screw of each anchor was rotated until three clicks were heard. The leads were connected to testing device.? Sterile dressing was applied to the patient's back.? The testing device was also taped to the patient's back.? the patient tolerated procedure well she was awaken and taken outside of the operating room to recovery room. she recovered uneventfully.
== END 2023-01-08 15:42 | disposition home or self-care (01) ==
PROVIDERS: PCP Internal Medicine; Visit Provider Anesthesiology
PROC: (CPT 63650; principal; 2023-01-08 12:10)
DX: M47.812 Spondylosis without myelopathy or radiculopathy, cervical region (principal); M50.30 Other cervical disc degeneration, unspecified cervical region; G89.4 Chronic pain syndrome; F10.21 Alcohol dependence, in remission; I10 Essential (primary) hypertension; E78.00 Pure hypercholesterolemia, unspecified; D64.9 Anemia, unspecified; R26.9 Unspecified abnormalities of gait and mobility; J45.909 Unspecified asthma, uncomplicated; G40.109 Localization-related (focal) (partial) symptomatic epilepsy and epileptic syndromes with simple partial seizures, not intractable, without status epilepticus; G62.9 Polyneuropathy, unspecified; G43.909 Migraine, unspecified, not intractable, without status migrainosus; I73.9 Peripheral vascular disease, unspecified; F41.9 Anxiety disorder, unspecified; M81.0 Age-related osteoporosis without current pathological fracture; Z79.82 Long term (current) use of aspirin; Z79.899 Other long term (current) drug therapy; Z88.5 Allergy status to narcotic agent; Z91.040 Latex allergy status; Z88.8 Allergy status to other drugs, medicaments and biological substances; L23.1 Allergic contact dermatitis due to adhesives; Z98.890 Other specified postprocedural states; Z87.891 Personal history of nicotine dependence
CPT/HCPCS: 63650 ×2; C1713; C1897; J0690; J2371; J2795; J3010

== ENCOUNTER → 2023-01-08 11:38 | Outpatient (BNV) | payer MEDICARE, MEDICAID, SELFPAY | PROVIDERS: PCP Internal Medicine; Visit Provider Anesthesiology | DX: M47.812 Spondylosis without myelopathy or radiculopathy, cervical region (principal) | CPT/HCPCS: 63650 ==

== ENCOUNTER 2023-01-14 08:37 | Outpatient (AMB) | payer MEDICARE, MEDICAID, SELFPAY ==
--- NOTE | 2023-01-14 09:12 | A.OFFVIS_ITS ---
Intake Vital Signs 01/14/23 09:17 Height 5 ft 7 in Weight 116 lb BMI 18.2 BP 118/56 L Blood Pressure Location Lt brachial Position Sitting Respiration 14 Pulse 71 Pulse Source Pulse Oximeter Pulse Oximetry (%) 96 Oxygen Delivery Method Room Air Intake Visit Reasons: s/p Nevro SCS Trial 01/08/23/CONFIRMED Allergies morphine [Morphine] Allergy (Severe, Verified 01/14/23 09:18) VOMITING/HALLUCINATIONS codeine [Codeine] Allergy (Intermediate, Verified 01/14/23 09:18) VOMITING/HALLUCINATIONS, nause/extended abdomen latex Allergy (Unknown, Verified 01/14/23 09:18) Unknown atorvastatin Adverse Reaction (Intermediate, Verified 01/14/23 09:18) fever, chills, abd pain, numbness capsaicin [CAPSAICIN] Adverse Reaction (Intermediate, Verified 01/14/23 09:18) BURNING bacitracin Allergy (Intermediate, Uncoded 01/06/23 11:03) redness and itching adhesives Allergy (Mild, Uncoded 01/06/23 11:03) rash HPI HPI Comments History of Present Illness Details Cary is back in my office after trial of Nevro SCS. The patient reports only 5% of pain improvement during the trial. She reports 1st day in during the trial she was able to sleep better, she reports 2nd and 3rd date pain improvement as well however on day 4 she reports her pain became unbearable. We interrogated today the SCS and the patient reported appropriate stimulation on both sides left and right starting from shoulders and any up in the arms however the stimulation is symmetrical and it appears to be that she shifted her left C2 position electrode down the spinal canal. Unfortunately I would not have C-arm in the office to confirm this but my August guess nevertheless probably is correct. In any case the implantation of Nevro SCS does not seem to be indicated for this patient. I will schedule this patient for new appointment with me to discuss further management. The dressing was removed today the silk sutures anchoring devices to her skin were severed the devices seem to be appropriately positioned in the back without dislodgement. The devices were prepped with ChloraPrep and removed no pathological discharge was observed. Sterile dressing with bacitracin was applied. Prior: complaints of neck pain and pain in the thoracic spine..? She finished physical therapy 8 sessions and continues home exercise program however she reports minimal help if any from physical therapy.? Therapeutic C2-C3 C4 medial branch block was performed on the patient however unfortunately did not result in headache improvement. She reported pain in the projection of mid thoracic spine and she was sent for x-rays of the thoracic spine. Unfortunately she did not go for the the x-ray of the thoracic spine . I will send her again. She reported unsteady gait and change in the posterior. She reports that we and she standing steady and concentrate on some small hand tasks without her awareness she is changing her posture was had and torso twisted to the right side. I will send her to a neurologist to evaluate her on migraines, unsteady gait, and unsteady posture. As of her pain in the neck rib with radiation into the back of the head and down to her shoulders considering that injections did not help her I offered her today Nevro SCS to the patient. I gave her brochure to read. I explained to her need for psychological evaluation. I will schedule her for an appointment after x-rays done and after she decides whether not Nevro SCS is something she would like to do. Prior:? She was referred by orthopedics after evaluation of right shoulder pain and received an intraarticular steroid injection with good relief on 10/09/21. She reports her right shoulder feels great since undergoing the injection and has increased ROM but has had persistent neck pain. She attributes the pain to a fall which she sustained on 07/20/21. She reports the pain radiates up the neck as well as to the shoulders.? However her pain is mostly axial.? She denies any numbness, tingling or weakness. She notes limited ROM and moderate to severe pain with any activity involving lateral rotation of the neck as well as flexion, such as reading a book. She states the pain is constant and rates the pain a 7-8/10. She denies any injections or surgery for the neck.? Her MRI is dictated as below and on the MRI short of significant arthritis in arthrosis there is no major foraminal or central canal stenosis disc protrusions or extrusions.? I offered this patient to go for bilateral diagnostic C4-C5 C6 medial branch block which she received on 02/24/2022.? The patient reported that she had only minor improvement for 1st 5 hours after the injection.? She reports less than 20% pain improvement.? I doubt that this is indicative of facet joint arthropathy being her pain generator.? I suspect that she still with suffering from results of acute trauma.? [facility] Medical History (Updated 12/11/22 @ 13:33 by Bailey Diamond MD) Anxiety Insomnia Osteoporosis Anemia Gait abnormality Partial symptomatic epilepsy with complex partial seizures, not intractable, without status epilepticus Asthma Pure hypercholesterolemia Peripheral arterial disease Unsteady gait Neuropathy Benign essential hypertension Alcoholism in remission Exertional dyspnea Surgical History (Updated 01/06/23 @ 10:56 by Lisa Casanova RN) Hx of foot surgery Hx of nasal septoplasty History of esophagogastroduodenoscopy (EGD) H/O colonoscopy History of angioplasty History of partial gastrectomy History of cholecystectomy History of cataract surgery History of hysterectomy History of tubal ligation S/P excision of neuroma Family History Father CVD (cardiovascular disease) Heart disease Hypertension Stroke Mother CVD (cardiovascular disease) Heart disease Asthma Maternal Grandmother No problems noted. Maternal Grandfather No problems noted. Paternal Grandmother No problems noted. Paternal Grandfather No problems noted. Maternal Aunt Tongue cancer Social History Household Members: None Housing: Assisted Living Facility Are you a primary health care marketing manager to a significant other at home: No Do you presently have visiting nurse or other home services: No Alcohol intake: former Patient Tobacco Use Status: Former Tobacco user Quit Date: 1981 e-Cigarette/Vaping Use: Never Used Second Hand Smoke Exposure: Yes Advance Directives Date on File: 06/12/21 service: No Current occupational status: retired Cognitive needs: No Hearing needs: No Vision needs: Yes Review of Systems Const All systems reviewed & are unremarkable except as noted in HPI and below Eyes Denies photophobia ENT Reports Normal hearing present Neuro Reports Normal hearing present Physical Exam Vital Signs: Last Vital Signs Pulse 71 01/14/23 09:17 Resp 14 01/14/23 09:17 BP 118/56 L 01/14/23 09:17 Pulse Ox 96 01/14/23 09:17 Oxygen Delivery Method Room Air 01/14/23 09:17 BMI result Body Mass Index 18.2 Const General: cooperative, healthy appearing, no acute distress and alert Limitations: No ambulation with cane, No ambulation with walker and No wheelchair HEENT Head: Yes normal to inspection, Yes normocephalic and Yes atraumatic Ears: hearing grossly normal bilaterally Eyes General: appearance normal, both eyes and all related structures Eyelids: Yes eyelids normal Sclerae: sclerae normal Pupils: Equal, round and reactive pupils present EOM: EOMs intact bilaterally Direct Ophthalmoscopy: No photophobia Neck Neck: Yes normal visual inspection, Yes trachea midline and Yes no JVD Chest Chest palpation & inspection: normal inspection of the chest Resp Effort & Inspection: normal respiratory effort, able to speak in complete sentences and no audible wheezes Cardio Jugular venous distension: no JVD Palpation: other (no appreciable rhythmic abnormalities) Peripheral pulses: radial pulses present (no palpable rhythmic abnormalities detected) bilateral and other Back/Spine/Pelvis Other: Patient with moderately decreased cervical ROM in all planes.Spurling compression test negative. Pain is unchanged with Spurling manuever with retraction. Elvey's tension test negative. DTR intact and symmetrical. Lhermitte's test negative. Patient demonstrated 5/5 motor strength of bilateral upper extremities. Significant tightness throughout cervical muscles. Cervical Spine: pain with cervical ROM and Cervical spine tenderness Neuro General: gait normal, moves all extremities and Normal light touch and pain sensation Cranial nerves: Yes Equal, round and reactive pupils present, Yes Bilaterally intact EOM present and Yes Normal hearing present Cognition (Neuro): normal cognition Gait exam (Neuro): Normal gait present Motor exam (neuro): 5/5 motor strength present throughout Extrem General: Yes normal to inspection Assessment & Plan Assessment & Plan (1) Spondylosis of thoracic spine: Code(s): M47.814 - Spondylosis without myelopathy or radiculopathy, thoracic region (2) Cervical radiculitis: Code(s): M54.12 - Radiculopathy, cervical region (3) Degenerative disc disease, cervical: Code(s): M50.30 - Other cervical disc degeneration, unspecified cervical region (4) Neck pain: Code(s): M54.2 - Cervicalgia (5) Osteoporosis: Code(s): M81.0 - Age-related osteoporosis without current pathological fracture Qualifiers: Osteoporosis type: age-related Presence of current pathological fracture: without current pathological fracture Qualified Code(s): M81.0 - Age- related osteoporosis without current pathological fracture (6) Unsteady gait: Code(s): R26.81 - Unsteadiness on feet (7) Cervical spondylosis: Code(s): M47.812 - Spondylosis without myelopathy or radiculopathy, cervical region (8) Balance disorder: Code(s): R26.89 - Other abnormalities of gait and mobility (9) Migraine: Code(s): G43.909 - Migraine, unspecified, not intractable, without status migrainosus Qualifiers: Migraine type: unspecified Status migrainosus presence: without status migrainosus Intractability: not intractable Qualified Code(s): G43.909 - Migraine, unspecified, not intractable, without status migrainosus Plan Trial of Nevro SCS was not very helpful for the patient. Part of it may be because she most likely shifted the top electrode down the cervical spine from C2 may be down to C3-C4 position. However nevertheless I do not see indications to implant Nevro device into her. Unfortunately she is too old to consider cervical placed It DDD. She reported difficulty posture and problem with her gait. I sent her to Neurology for the consultation. Maybe brain MRI is due for this patient. I will wait for Neurology consult and and I will make my decision on this patient. Coding Level of Care Code Est Pt Level 3 (92751) Diagnoses Spondylosis of thoracic spine M47.814 Cervical radiculitis M54.12 Degenerative disc disease, cervical M50.30 Neck pain M54.2 Age-related osteoporosis without current pathological fracture M81.0 Osteoporosis type: age-related Presence of current pathological fracture: without current pathological fracture Unsteady gait R26.81 Cervical spondylosis M47.812 Balance disorder R26.89 Migraine without status migrainosus, not intractable, unspecified migraine type G43.909 Migraine type: unspecified Status migrainosus presence: without status migrainosus Intractability: not intractable
[2023-01-14 09:17] VITALS: BP 118/56; PULSE 71; RESP 14; O2SAT 96; BMI 18.2
== END 2023-01-14 09:42 | disposition home or self-care (01) ==
PROVIDERS: PCP Internal Medicine; Visit Provider Anesthesiology
DX: M47.814 Spondylosis without myelopathy or radiculopathy, thoracic region (principal); M54.12 Radiculopathy, cervical region; M54.2 Cervicalgia; M81.0 Age-related osteoporosis without current pathological fracture; R26.81 Unsteadiness on feet; M47.812 Spondylosis without myelopathy or radiculopathy, cervical region; R26.89 Other abnormalities of gait and mobility; G43.909 Migraine, unspecified, not intractable, without status migrainosus
CPT/HCPCS: 99024

== ENCOUNTER → 2023-01-14 08:37 | Outpatient (BNVA) | payer MEDICARE, MEDICAID, SELFPAY | PROVIDERS: PCP Internal Medicine; Visit Provider Anesthesiology | DX: Z45.1 Encounter for adjustment and management of infusion pump (principal); I73.9 Peripheral vascular disease, unspecified; G43.709 Chronic migraine without aura, not intractable, without status migrainosus; R26.89 Other abnormalities of gait and mobility; R26.81 Unsteadiness on feet; M81.0 Age-related osteoporosis without current pathological fracture; M50.30 Other cervical disc degeneration, unspecified cervical region; M54.12 Radiculopathy, cervical region; M47.812 Spondylosis without myelopathy or radiculopathy, cervical region; M47.814 Spondylosis without myelopathy or radiculopathy, thoracic region | CPT/HCPCS: 99212 ==

== ENCOUNTER 2023-01-18 07:55 | Outpatient (AMB) | payer MEDICARE, MEDICAID, SELFPAY ==
--- NOTE | 2023-01-18 08:07 | MHC.OFFVIS ---
Intake Vital Signs 01/18/23 08:15 Height 5 ft 7 in Weight 116 lb BMI 18.2 BP 130/60 Blood Pressure Location Lt brachial Position Sitting Respiration 14 Pulse 82 Pulse Source Pulse Oximeter Pulse Oximetry (%) 96 Oxygen Delivery Method Room Air Intake Visit Reasons: FOLLOW UP/LVM Allergies morphine [Morphine] Allergy (Severe, Verified 01/18/23 08:15) VOMITING/HALLUCINATIONS codeine [Codeine] Allergy (Intermediate, Verified 01/18/23 08:15) VOMITING/HALLUCINATIONS, nause/extended abdomen latex Allergy (Unknown, Verified 01/18/23 08:15) Unknown atorvastatin Adverse Reaction (Intermediate, Verified 01/18/23 08:15) fever, chills, abd pain, numbness capsaicin [CAPSAICIN] Adverse Reaction (Intermediate, Verified 01/18/23 08:15) BURNING bacitracin Allergy (Intermediate, Uncoded 01/06/23 11:03) redness and itching adhesives Allergy (Mild, Uncoded 01/06/23 11:03) rash HPI HPI Comments History of Present Illness Details Cary is back in my office after trial of Nevro SCS. The patient change her mind 180 degrees. She reported that after removal of the Nevro SCS she felt great. She was able to wash windows in her apartment without neck pain. She was able to cook herself a dinner and reported only minor pain in the neck which disappeared soon after. All of these after the leads removal. She wants machine implanted permanently. She reported that her pain was decreased to 5/10 when she was asking the question how much her pain was relieved in percentage points. Therefore considering her pain was 10/10 on previous visits during the trial alone she had at least 50% pain improvement. I offered her period of time to wait and see how long the pain relieve will last. However patient insists on implantation of SCS Nevro. I will schedule her for the procedure. We discussed implantation of the device and we probably will position the battery in the left upper buttock. Prior: The patient reports only 5% of pain improvement during the trial. She reports 1st day in during the trial she was able to sleep better, she reports 2nd and 3rd date pain improvement as well however on day 4 she reports her pain became unbearable. We interrogated today the SCS and the patient reported appropriate stimulation on both sides left and right starting from shoulders and any up in the arms however the stimulation is symmetrical and it appears to be that she shifted her left C2 position electrode down the spinal canal. Unfortunately I would not have C-arm in the office to confirm this but my August guess nevertheless probably is correct. In any case the implantation of Nevro SCS does not seem to be indicated for this patient. I will schedule this patient for new appointment with me to discuss further management. The dressing was removed today the silk sutures anchoring devices to her skin were severed the devices seem to be appropriately positioned in the back without dislodgement. The devices were prepped with ChloraPrep and removed no pathological discharge was observed. Sterile dressing with bacitracin was applied. Prior: complaints of neck pain and pain in the thoracic spine..? She finished physical therapy 8 sessions and continues home exercise program however she reports minimal help if any from physical therapy.? Therapeutic C2-C3 C4 medial branch block was performed on the patient however unfortunately did not result in headache improvement. She reported pain in the projection of mid thoracic spine and she was sent for x-rays of the thoracic spine. Unfortunately she did not go for the the x-ray of the thoracic spine . I will send her again. She reported unsteady gait and change in the posterior. She reports that we and she standing steady and concentrate on some small hand tasks without her awareness she is changing her posture was had and torso twisted to the right side. I will send her to a neurologist to evaluate her on migraines, unsteady gait, and unsteady posture. As of her pain in the neck rib with radiation into the back of the head and down to her shoulders considering that injections did not help her I offered her today Nevro SCS to the patient. I gave her brochure to read. I explained to her need for psychological evaluation. I will schedule her for an appointment after x-rays done and after she decides whether not Nevro SCS is something she would like to do. Prior:? She was referred by orthopedics after evaluation of right shoulder pain and received an intraarticular steroid injection with good relief on 10/09/21. She reports her right shoulder feels great since undergoing the injection and has increased ROM but has had persistent neck pain. She attributes the pain to a fall which she sustained on 07/20/21. She reports the pain radiates up the neck as well as to the shoulders.? However her pain is mostly axial.? She denies any numbness, tingling or weakness. She notes limited ROM and moderate to severe pain with any activity involving lateral rotation of the neck as well as flexion, such as reading a book. She states the pain is constant and rates the pain a 7-8/10. She denies any injections or surgery for the neck.? Her MRI is dictated as below and on the MRI short of significant arthritis in arthrosis there is no major foraminal or central canal stenosis disc protrusions or extrusions.? I offered this patient to go for bilateral diagnostic C4-C5 C6 medial branch block which she received on 02/24/2022.? The patient reported that she had only minor improvement for 1st 5 hours after the injection.? She reports less than 20% pain improvement.? I doubt that this is indicative of facet joint arthropathy being her pain generator.? I suspect that she still with suffering from results of acute trauma.? [facility] Medical History (Updated 01/18/23 @ 08:39 by Elia Sebastian MD) Anxiety Insomnia Osteoporosis Anemia Gait abnormality Partial symptomatic epilepsy with complex partial seizures, not intractable, without status epilepticus Asthma Pure hypercholesterolemia Peripheral arterial disease Unsteady gait Neuropathy Benign essential hypertension Alcoholism in remission Exertional dyspnea Surgical History (Updated 01/06/23 @ 10:56 by Lisa Casanova RN) Hx of foot surgery Hx of nasal septoplasty History of esophagogastroduodenoscopy (EGD) H/O colonoscopy History of angioplasty History of partial gastrectomy History of cholecystectomy History of cataract surgery History of hysterectomy History of tubal ligation S/P excision of neuroma Family History Father CVD (cardiovascular disease) Heart disease Hypertension Stroke Mother CVD (cardiovascular disease) Heart disease Asthma Maternal Grandmother No problems noted. Maternal Grandfather No problems noted. Paternal Grandmother No problems noted. Paternal Grandfather No problems noted. Maternal Aunt Tongue cancer Social History Household Members: None Housing: Assisted Living Facility Are you a primary direct care provider to a significant other at home: No Do you presently have visiting nurse or other home services: No Alcohol intake: former Patient Tobacco Use Status: Former Tobacco user Quit Date: 1981 e-Cigarette/Vaping Use: Never Used Second Hand Smoke Exposure: Yes Advance Directives Date on File: 06/12/21 service: No Current occupational status: retired Cognitive needs: No Hearing needs: No Vision needs: Yes Review of Systems Const All systems reviewed & are unremarkable except as noted in HPI and below Eyes Denies photophobia ENT Reports Normal hearing present Neuro Reports Normal hearing present Physical Exam Vital Signs: Last Vital Signs Pulse 82 01/18/23 08:15 Resp 14 01/18/23 08:15 BP 130/60 01/18/23 08:15 Pulse Ox 96 01/18/23 08:15 Oxygen Delivery Method Room Air 01/18/23 08:15 BMI result Body Mass Index 18.2 Const General: cooperative, healthy appearing, no acute distress and alert Limitations: No ambulation with cane, No ambulation with walker and No wheelchair HEENT Head: Yes normal to inspection, Yes normocephalic and Yes atraumatic Ears: hearing grossly normal bilaterally Eyes General: appearance normal, both eyes and all related structures Eyelids: Yes eyelids normal Sclerae: sclerae normal Pupils: Equal, round and reactive pupils present EOM: EOMs intact bilaterally Direct Ophthalmoscopy: No photophobia Neck Neck: Yes normal visual inspection, Yes trachea midline and Yes no JVD Chest Chest palpation & inspection: normal inspection of the chest Resp Effort & Inspection: normal respiratory effort, able to speak in complete sentences and no audible wheezes Cardio Jugular venous distension: no JVD Palpation: other (no appreciable rhythmic abnormalities) Peripheral pulses: radial pulses present (no palpable rhythmic abnormalities detected) bilateral and other Back/Spine/Pelvis Other: Patient with moderately decreased cervical ROM in all planes.Spurling compression test negative. Pain is unchanged with Spurling manuever with retraction. Elvey's tension test negative. DTR intact and symmetrical. Lhermitte's test negative. Patient demonstrated 5/5 motor strength of bilateral upper extremities. Significant tightness throughout cervical muscles. Cervical Spine: pain with cervical ROM and Cervical spine tenderness Neuro General: gait normal, moves all extremities and Normal light touch and pain sensation Cranial nerves: Yes Equal, round and reactive pupils present, Yes Bilaterally intact EOM present and Yes Normal hearing present Cognition (Neuro): normal cognition Gait exam (Neuro): Normal gait present Motor exam (neuro): 5/5 motor strength present throughout Extrem General: Yes normal to inspection Assessment & Plan Assessment & Plan (1) Spondylosis of thoracic spine: Code(s): M47.814 - Spondylosis without myelopathy or radiculopathy, thoracic region (2) Cervical radiculitis: Code(s): M54.12 - Radiculopathy, cervical region (3) Degenerative disc disease, cervical: Code(s): M50.30 - Other cervical disc degeneration, unspecified cervical region (4) Neck pain: Code(s): M54.2 - Cervicalgia (5) Osteoporosis: Code(s): M81.0 - Age-related osteoporosis without current pathological fracture Qualifiers: Osteoporosis type: age-related Presence of current pathological fracture: without current pathological fracture Qualified Code(s): M81.0 - Age-related osteoporosis without current pathological fracture (6) Unsteady gait: Code(s): R26.81 - Unsteadiness on feet (7) Cervical spondylosis: Code(s): M47.812 - Spondylosis without myelopathy or radiculopathy, cervical region (8) Balance disorder: Code(s): R26.89 - Other abnormalities of gait and mobility (9) Migraine: Code(s): G43.909 - Migraine, unspecified, not intractable, without status migrainosus Qualifiers: Migraine type: unspecified Status migrainosus presence: without status migrainosus Intractability: not intractable Qualified Code(s): G43.909 - Migraine, unspecified, not intractable, without status migrainosus (10) Chronic pain syndrome: Code(s): G89.4 - Chronic pain syndrome (11) Muscle spasms of neck: Code(s): M62.838 - Other muscle spasm (12) Spondylosis of cervical region without myelopathy or radiculopathy: Code(s): M47.812 - Spondylosis without myelopathy or radiculopathy, cervical region Plan The patient in the week changed her mind 180 degrees. She reported that after removal of the spinal cord stimulator leads she experience prolonged and profound pain improvement. She reports 100% pain improvement. She reports better mobility excellent activities of daily living, great social interactions. She insists on implantation of Nevro SCS. She was given a warning that she original reported only 5% pain improvement. However she said that she did not understand the questions she was asked. She thought that she was being asked about the numbers on analogous pain scale. Which she reported 5/10. This is at least 50% pain improvement because she reported pain 9.5 to 10/10. I will schedule for Nevro SCS implant. Left upper buttock implantation of the battery. Patient Instructions: I here by testify that I spent 30 minutes in conversation with this patient as well as planning her care and organizing her note. Coding Level of Care Code Est Pt Level 4 (41472) Diagnoses Spondylosis of thoracic spine M47.814 Cervical radiculitis M54.12 Degenerative disc disease, cervical M50.30 Neck pain M54.2 Age-related osteoporosis without current pathological fracture M81.0 Osteoporosis type: age-related Presence of current pathological fracture: without current pathological fracture Unsteady gait R26.81 Cervical spondylosis M47.812 Balance disorder R26.89 Migraine without status migrainosus, not intractable, unspecified migraine type G43.909 Migraine type: unspecified Status migrainosus presence: without status migrainosus Intractability: not intractable Chronic pain syndrome G89.4 Muscle spasms of neck M62.838 Spondylosis of cervical region without myelopathy or radiculopathy M47.812
[2023-01-18 08:15] VITALS: BP 130/60; PULSE 82; RESP 14; O2SAT 96; BMI 18.2
== END 2023-01-18 08:32 | disposition home or self-care (01) ==
PROVIDERS: PCP Internal Medicine; Visit Provider Anesthesiology
DX: M47.814 Spondylosis without myelopathy or radiculopathy, thoracic region (principal); M54.12 Radiculopathy, cervical region; M50.30 Other cervical disc degeneration, unspecified cervical region; M54.2 Cervicalgia; M81.0 Age-related osteoporosis without current pathological fracture; R26.81 Unsteadiness on feet; M47.812 Spondylosis without myelopathy or radiculopathy, cervical region; R26.89 Other abnormalities of gait and mobility; G43.909 Migraine, unspecified, not intractable, without status migrainosus; G89.4 Chronic pain syndrome; M62.838 Other muscle spasm
CPT/HCPCS: 99024

== ENCOUNTER → 2023-01-18 07:55 | Outpatient (BNVA) | payer MEDICARE, MEDICAID, SELFPAY | PROVIDERS: PCP Internal Medicine; Visit Provider Anesthesiology | DX: M47.814 Spondylosis without myelopathy or radiculopathy, thoracic region (principal); M54.12 Radiculopathy, cervical region; M50.30 Other cervical disc degeneration, unspecified cervical region; M54.2 Cervicalgia; M81.0 Age-related osteoporosis without current pathological fracture; M62.838 Other muscle spasm; M47.812 Spondylosis without myelopathy or radiculopathy, cervical region; R26.81 Unsteadiness on feet; R26.89 Other abnormalities of gait and mobility; G43.909 Migraine, unspecified, not intractable, without status migrainosus; G89.4 Chronic pain syndrome | CPT/HCPCS: 99212 ==

== ENCOUNTER 2023-01-29 06:45 | Day surgery (SDC) | payer MEDICARE, MEDICAID, SELFPAY ==
--- NOTE | 2023-01-28 13:08 | P.CONAN_ITS ---
Documented by User: Aura Chairez NP 01/28/23 13:09 HPI - Anesthesia Eval Consult details Narrative: 77yo F for Cervical Spinal Cord Stimulation Implant s/p trial 12/2022 with MAC Plavix/asa for PVD - ok to hold per vascular PMFSH Active Problems Active Problems: All Active Problems (Updated 01/18/23 @ 08:39 by Elia Sebastian MD) Chronic pain syndrome (Acute) Spondylosis of thoracic spine (Acute) Eye discomfort (Acute) Vision problems (Acute) Eye abnormalities (Acute) Cervical spondylosis (Acute) Cervical radiculitis (Acute) Muscle spasms of neck (Acute) Degenerative disc disease, cervical (Acute) Spondylosis of cervical region without myelopathy or radiculopathy (Acute) Cervical strain (Acute) Neck pain (Acute) Rotator cuff tendonitis (Acute) Biceps tendonitis on right (Acute) Right shoulder pain (Acute) Thoracic back pain (Acute) Osteopenia (Acute) Neck muscle strain (Acute) Migraine (Acute) Encounter for Medicare annual wellness exam (Acute) Lower extremity pain, bilateral (Acute) Syncopal episodes (Acute) Balance disorder (Acute) Hospital discharge follow-up (Acute) Anxiety (Acute) Insomnia (Acute) Osteoporosis (Acute) Anemia (Chronic) Gait abnormality (Acute) Partial symptomatic epilepsy with complex partial seizures, not intractable, without status epilepticus (Acute) Asthma (Acute) Pure hypercholesterolemia (Acute) Peripheral arterial disease (Acute) Unsteady gait (Acute) Neuropathy (Acute) Benign essential hypertension (Acute) 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) Exertional dyspnea (Acute) Past Medical History Medical History Anxiety Insomnia Osteoporosis Anemia Gait abnormality Partial symptomatic epilepsy with complex partial seizures, not intractable, without status epilepticus Asthma Pure hypercholesterolemia Peripheral arterial disease Unsteady gait Neuropathy Benign essential hypertension Alcoholism in remission Exertional dyspnea Family History Family History Father CVD (cardiovascular disease) Heart disease Hypertension Stroke Mother CVD (cardiovascular disease) Heart disease Asthma Maternal Grandmother No problems noted. Maternal Grandfather No problems noted. Paternal Grandmother No problems noted. Paternal Grandfather No problems noted. Maternal Aunt Tongue cancer Family history of problems with anesthesia: No Surgical History Surgical History Hx of foot surgery Hx of nasal septoplasty History of esophagogastroduodenoscopy (EGD) H/O colonoscopy History of angioplasty History of partial gastrectomy History of cholecystectomy History of cataract surgery History of hysterectomy History of tubal ligation S/P excision of neuroma History of Problems with Anesthesia: No Social History Social History Household Members: None Housing: Assisted Living Facility Are you a primary resident care technician to a significant other at home: No Do you presently have visiting nurse or other home services: No Alcohol intake: former Patient Tobacco Use Status: Former Tobacco user Quit Date: 1987 e-Cigarette/Vaping Use: Never Used Second Hand Smoke Exposure: Yes Use of substances other than those prescribed or required for medical reasons: No Are you DNR?: No Advance Directives: No Advance Directives Information Provided: Yes Advance Directives Date on File: 06/12/21 service: No Current occupational status: retired Cognitive needs: No Hearing needs: No Vision needs: Yes Meds Allergies Allergy/AdvReac Type Severity Reaction Status Date / Time morphine [Morphine] Allergy Severe VOMITING/LONGORIA Verified 01/29/23 07:12 LLUCINATION S codeine [Codeine] Allergy Intermediate VOMITING/HALLUCINATIONS, Verified 01/29/23 07:12 nause/extended abdomen latex Allergy Unknown Unknown Verified 01/29/23 07:12 atorvastatin AdvReac Intermediate fever, Verified 01/29/23 07:12 chills, abd pain, numbness capsaicin [CAPSAICIN] AdvReac Intermediate BURNING Verified 01/29/23 07:12 bacitracin Allergy Intermediate redness Uncoded 01/29/23 07:12 and itching adhesives Allergy Mild rash Uncoded 01/29/23 07:12 Home Medications Medication Instructions Recorded Confirmed Last Taken Type aspirin 81 mg tablet,delayed 81 mg PO DAILY 03/11/20 01/29/23 01/21/23 History release clonazepam 0.5 mg tablet 0.5 mg PO BID 03/11/20 01/06/23 Unknown History clonazepam 1 mg tablet 1 mg PO BEDTIME 03/11/20 01/06/23 Unknown History lamotrigine 200 mg tablet 200 mg PO DAILY 03/11/20 01/29/23 01/29/23 History trazodone 100 mg tablet 100 mg PO DAILY 03/11/20 01/06/23 Unknown History Exam Exam Date and Time: January 28, 2023 1308 Height,Weight and Vital Signs: Height 5 ft 6 in Weight 50.349 kg Pertinent Lab Results Pertinent Lab Results: Laboratory Tests 11/14/22 12:14 WBC 4.3 L Hgb 12.6 Hct 38.3 Plt Count 213 Sodium 142 Potassium 4.0 Chloride 108 Carbon Dioxide 26 BUN 13 Creatinine 0.78 Narrative Narrative: ECHO 2020 Conclusions: - The left ventricular systolic function is normal. The visually estimated ejection fraction is between 60-65%. - There is mild to moderate aortic valve regurgitation. - There is mild mitral valve regurgitation. - There is mild tricuspid valve regurgitation. Assessment and Plan Assessment Anesthesia Assessment: Chart Reviewed Final Anesthetic Review Family History of Problems with Anesthesia: No History of Problems with Anesthesia: No Documented by User: Denisa Salazar MD 01/29/23 08:44 PMFSH Past Medical History Medical History Anxiety Insomnia Osteoporosis Anemia Gait abnormality Partial symptomatic epilepsy with complex partial seizures, not intractable, without status epilepticus Asthma Pure hypercholesterolemia Peripheral arterial disease Unsteady gait Neuropathy Benign essential hypertension Alcoholism in remission Exertional dyspnea Family History Family History Father CVD (cardiovascular disease) Heart disease Hypertension Stroke Mother CVD (cardiovascular disease) Heart disease Asthma Maternal Grandmother No problems noted. Maternal Grandfather No problems noted. Paternal Grandmother No problems noted. Paternal Grandfather No problems noted. Maternal Aunt Tongue cancer Surgical History Surgical History Hx of foot surgery Hx of nasal septoplasty History of esophagogastroduodenoscopy (EGD) H/O colonoscopy History of angioplasty History of partial gastrectomy History of cholecystectomy History of cataract surgery History of hysterectomy History of tubal ligation S/P excision of neuroma Social History Social History Household Members: None Housing: Assisted Living Facility Are you a primary resident care technician to a significant other at home: No Do you presently have visiting nurse or other home services: No Alcohol intake: former Patient Tobacco Use Status: Former Tobacco user Quit Date: 1987 e-Cigarette/Vaping Use: Never Used Second Hand Smoke Exposure: Yes Use of substances other than those prescribed or required for medical reasons: No Are you DNR?: No Advance Directives: No Advance Directives Information Provided: Yes Advance Directives Date on File: 06/12/21 service: No Current occupational status: retired Cognitive needs: No Hearing needs: No Vision needs: Yes Meds Allergies Allergy/AdvReac Type Severity Reaction Status Date / Time morphine [Morphine] Allergy Severe VOMITING/LONGORIA Verified 01/29/23 07:12 LLUCINATION S codeine [Codeine] Allergy Intermediate VOMITING/HALLUCINATIONS, Verified 01/29/23 07:12 nause/extended abdomen latex Allergy Unknown Unknown Verified 01/29/23 07:12 atorvastatin AdvReac Intermediate fever, Verified 01/29/23 07:12 chills, abd pain, numbness capsaicin [CAPSAICIN] AdvReac Intermediate BURNING Verified 01/29/23 07:12 bacitracin Allergy Intermediate redness Uncoded 01/29/23 07:12 and itching adhesives Allergy Mild rash Uncoded 01/29/23 07:12 Home Medications Medication Instructions Recorded Confirmed Last Taken Type aspirin 81 mg tablet,delayed 81 mg PO DAILY 03/11/20 01/29/23 01/21/23 History release clonazepam 0.5 mg tablet 0.5 mg PO BID 03/11/20 01/06/23 Unknown History clonazepam 1 mg tablet 1 mg PO BEDTIME 03/11/20 01/06/23 Unknown History lamotrigine 200 mg tablet 200 mg PO DAILY 03/11/20 01/29/23 01/29/23 History trazodone 100 mg tablet 100 mg PO DAILY 03/11/20 01/06/23 Unknown History Exam Airway Mallampati Class: II TM Dist: >3cm Neck ROM: Full Heart: rrr Lungs: cta Assessment and Plan Assessment Anesthesia Assessment: Anesthesia Plan Discussed Final Anesthetic Review NPO: Yes ASA Class: III Final Preanesthetic Review: No Changes in Pt Med Stat, Meds/Allgs Chart Reviewed, Consent Obtained/Reviewed and Anes Risks/Benef Reviewed Patient Risk: Intermediate Procedure Risk: Intermediate Anesthetic Plan Anesthetic Plan: GA Disposition: Standard PACU
--- NOTE | ~2023-01-29 | FL_ITS ---
EXAMINATION: XR FLUOROSCOPY WITH IMAGES CLINICAL INFORMATION: Cervical spine stim implant. COMPARISON: None available. TECHNIQUE: Fluoroscopy Supervised By: Dr. Elia Sebastian. Fluoroscopy Time: 4.6 minutes. Cumulative Dose: 36.2 mGy. DAP: 5.56 Gycm2. Images: 2. FINDINGS: Images demonstrate leads projecting over the posterior cervical spine from C2 to C7 FL/FL guidance in OR IMPRESSION: Fluoroscopy guidance for spinal implant.
[2023-01-29 07:00] VITALS: BMI 17.8
[2023-01-29 07:51] VITALS: BP 105/36; PULSE 71; RESP 16; TEMP 36; O2SAT 96
[2023-01-29] MEDS: Lactated Ringers 1,000 ML 100 ML IVCONT (07:51)
--- NOTE | 2023-01-29 08:14 | MHC.SHP ---
Pre-Procedural Eval Section A Date of Service: 01/29/23 The patient is an INPATIENT: No Changes since office visit: Yes Patient answered all questions The History & Physical has been completed within 30 days and I have reviewed it.: No Section B Chief Complaint: Spondylosis without myelopathy or radiculopathy, Details of Present Illness: as Above Relevant Family History (Specify if Yes): No Relevant Social History: None Present Medications: see Short Stay Collaborative assessment Medical History: No relevant PMH History of Previous Operations: No relevant previous surgery Allergies: Allergies Allergy/AdvReac Type Severity Reaction Status Date / Time morphine [Morphine] Allergy Severe VOMITING/LONGORIA Verified 01/29/23 07:12 LLUCINATION S codeine [Codeine] Allergy Intermediate VOMITING/HALLUCINATIONS, Verified 01/29/23 07:12 nause/extended abdomen latex Allergy Unknown Unknown Verified 01/29/23 07:12 atorvastatin AdvReac Intermediate fever, Verified 01/29/23 07:12 chills, abd pain, numbness capsaicin [CAPSAICIN] AdvReac Intermediate BURNING Verified 01/29/23 07:12 bacitracin Allergy Intermediate redness Uncoded 01/29/23 07:12 and itching adhesives Allergy Mild rash Uncoded 01/29/23 07:12 Review of Systems Sugical H&P ROS: Negative: Constitution, Cardiovascular, Respiratory, Neurological, Psychiatric, Hem-Onc, Allergic/Immunologic, Gastrointestinal, Genitourinary, Musculoskeletal, Integumentary, Endocrine and Eyes/Ears/Nose/Throat Exam Surgical H&P Exam: Normal: HEENT, Normal: Heart, Normal: Lungs, Normal: Extremities, Normal: Abdomen, Normal: Skin and Normal: Neurological Plan Diagnosis/Plan: Unchanged I have reviewed the history and physical and performed a pertinent physical examination on my patient. No changes have occurred unless specified. Time Spent With Patient Time: Total time managing care of this patient today ____ minutes.
--- NOTE | 2023-01-29 08:26 | P.OP_ITS ---
Operative Note Operative Note Date of Service: 01/29/23 Narrative: implantation of the SCS Nevro Cervical spine Cary is very pleasant 77 years old female who came today into the operating room for implantation of spinal cord stimulator for the treatment of chronic pain syndrome, spondylosis of l Cervical spine, disc degeneration cervical spine. Preoperatively patient received ?cefazolin 2 g approximately 30 minutes before the procedure. After obtaining informed consent the patient was brought to the operating room, she was supine on the stretcher,? Citizen [employer] [place] [employer] monitors were applied and general anesthesia was induced with endotracheal intubation. After that patient was transferred to the operating table prone all pressure points were protected. ?Time-out was performed delineating correct site, side, the nature of the procedure, patient's allergy, preoperative antibiotic if needed.? All operating room staff was participating in OR time-out procedure Patient's entire back was prepped with ChloraPrep twice and draped with full body fenestrated drape and ioban film.? Sterilely draped C-arm was brought over operating field and square picture of? T7-T8 T9 vertebrae as were demonstrated on the screen.? The skin was? infiltrated with the mixture of lidocaine 2% and ropivacaine 0.5% in the projection of m T8-T9? spinouse procesess.?? After that? number 10 Blade scalpel was used to perform strict midline 6 cm? long incision.? the incision was widened and deepened until the prevertebral fascia was reached. Thorough hemostasis was obtained,? After that attention? was concentrated on the T7-T8 epidural interspace.? The location of the projection of the right pedicle center of the? T9 vertebra was found on the fascia using C-arm.? This location was injected with mixture of lidocaine 2% and ropivacaine0.5% 5 cc.? ? 10 cm 14 gauge? introducer epidural needle was inserted through the prevertebral fascia and advanced to? T7-T8 epidural interspace.? The advancement of the needle was performed on anterior posterior and lateral views.? Guitar wire and loss of resistance technique were used to locate epidural space.? When guitar wire was spread in the epidural fashion, epidural lead was inserted through the needle and it was advanced to the posterior epidural space.The lead was advanced? Strictly into the midline approximately to the? top of C2 vertebra in the posterior epidural space. on the lateral view the lead appears to be in The posterior epidural space. ? After that location of the projection of the LEFT pedicle center of the T9 vertebra was found using C-arm.? This location was injected with mixture of lidocaine 2% and ropivacaine0.5% 5 cc.?10 cm 14 gauge? introducer epidural needle was inserted through the fascia and advanced to T7-T8 epidural interspace.? The advancement of the needle was performed on anterior posterior and lateral views.? Guitar wire and loss of resistance technique were used to locate epidural space.? When guitar wire was spread in the epidural fashion, e pidural lead was inserted through the needle.? Loss of resistance to air technique and guitar wire were used to locate epidural space. After that the? epidural lead was advanced? slightly right to the existing electrode to the top of the? C3 vertebra in the posterior epidural space slightly left to the existing electrode.? lateral image was obtained demonstrating both epidural leads in posterior epidural space. After satisfactory position of the leads were established the needles were withdrawn, the stylette wires were removed from the epidural leads.? The anchoring devices were dislodged on the leads and advanced to the level of the prevertebral fascia.?After that the anchoring devices were sutured to the prevertebral fascia using Tycron 0-0 sutures - 2 sutures per each anchoroing d evice?. The both fixation screws were locked until 3 clicks heard. The wound was irrigated with vancomycin containing saline and packed with the 4x4 soaked with the same saline solution. After that attention was concentrated on the left upper buttock of the patient ? were the decision was made to implant the battery.? 3cm below the top of the right iliac crest horizontal incision was made 6.5 cm long using 10 blade scalpel, hemostasis was performed using? electric cautery..? Using sharp and dull dissection pocket for the battery was formed in caudad direction from the incision.? Thorough hemostasis was performed.? After that the? wound pocket was? irrigated with vancomycin containing normal saline and tunneling device was used to connect midline incision and upper buttock incision Tunneling device was used to connect the two wounds.? The epidural leads were dislodged from midline incision to the flank incision through the tunneling device.? After that they were connected to the AGRIMAPSia battery? and impedance was checked? and found to be satisfactory with all leads connected.? Anchoring? screws were fixed on the back of the battery.? Tycron of 0- 0 sutures were applied to the superior lateral and superior medial corners of the upper portion of the pocket? wound and after that the anchoring sutures were connected to the anchoring orifices on the battery.? Electrodes were gathered behind the body of the battery and battery was dislodged into the? subcutaneous pocket wound.? The sutures were tied and? irrigation was repeated.? After that?0-0 Polysorb sutures? used to close the? both wounds and the 0-2 polisorb sutures were used to apptoximate the level of the skin , Dawood were applied to the skin. The sterile dressing comprised of several 4x4 for each wound was affixed to the skin using medipore tape.. The patient was transferred supine on the stretcher,? awaken, Extubated and transferred stable to the PACU.
--- NOTE | 2023-01-29 09:09 | PC.NURSE ---
Per Dr Sebastian MRSA swab not indicated.
[2023-01-29 11:10] VITALS: BP 144/55; PULSE 82; RESP 16; TEMP 36.6; O2SAT 97
--- NOTE | 2023-01-29 11:10 | PM.OP ---
Brief Operative Note Date of Service: 01/29/23 Pre-op diagnosis: Cervicalgia, disc degeneration cervical, spondylosis of cervical spine Post-op diagnosis: same Procedure: implantation of Nevro SCS cervical position. Implants: All me a battery Nevro and 2 epidural leads. Surgeon: Elia Sebastian MD Anesthesia: GETA Was an [employer] used for this Procedure?: No Estimated blood loss (mL): 14 Condition: stable Disposition: PACU
[2023-01-29 11:15] VITALS: BP 143/53; PULSE 83; RESP 16; O2SAT 95
[2023-01-29 11:20] VITALS: BP 124/45; PULSE 81; RESP 16; O2SAT 93
[2023-01-29 11:25] VITALS: BP 122/54; PULSE 85; RESP 16; O2SAT 93
[2023-01-29 11:40] VITALS: BP 108/49; PULSE 84; RESP 16; TEMP 37; O2SAT 94
== END 2023-01-29 12:30 | disposition home or self-care (01) ==
PROVIDERS: PCP Internal Medicine; Visit Provider Anesthesiology
PROC: (CPT 63685; principal; 2023-01-29 08:30)
DX: M47.812 Spondylosis without myelopathy or radiculopathy, cervical region (principal); G89.4 Chronic pain syndrome; M50.30 Other cervical disc degeneration, unspecified cervical region; M47.814 Spondylosis without myelopathy or radiculopathy, thoracic region; M62.838 Other muscle spasm; R26.9 Unspecified abnormalities of gait and mobility; M81.0 Age-related osteoporosis without current pathological fracture; D64.9 Anemia, unspecified; G40.109 Localization-related (focal) (partial) symptomatic epilepsy and epileptic syndromes with simple partial seizures, not intractable, without status epilepticus; G62.9 Polyneuropathy, unspecified; I73.9 Peripheral vascular disease, unspecified; I10 Essential (primary) hypertension; J45.909 Unspecified asthma, uncomplicated; F41.9 Anxiety disorder, unspecified; F10.21 Alcohol dependence, in remission; Z79.82 Long term (current) use of aspirin; Z79.01 Long term (current) use of anticoagulants; Z79.899 Other long term (current) drug therapy; Z88.5 Allergy status to narcotic agent; Z88.8 Allergy status to other drugs, medicaments and biological substances; Z91.040 Latex allergy status; Z98.890 Other specified postprocedural states; Z87.891 Personal history of nicotine dependence
CPT/HCPCS: 63685; 63650 ×2; C1713; C1778; C1787; C1816; J0330; J0690; J1100; J2405; J2704; J2795; J3010; J3370

== ENCOUNTER → 2023-01-29 06:45 | Outpatient (BNV) | payer MEDICARE, MEDICAID, SELFPAY | PROVIDERS: PCP Internal Medicine; Visit Provider Anesthesiology | DX: M47.812 Spondylosis without myelopathy or radiculopathy, cervical region (principal) | CPT/HCPCS: 63650; 63685 ==

== ENCOUNTER 2023-02-03 10:35 | Outpatient (AMB) | payer MEDICARE, MEDICAID, SELFPAY ==
[2023-02-03 10:55] VITALS: BP 130/62; PULSE 90; RESP 16; O2SAT 98
--- NOTE | 2023-02-03 10:55 | A.OFFVIS_ITS ---
Intake Vital Signs 02/03/23 10:55 BP 130/62 Blood Pressure Location Lt brachial Position Sitting Respiration 16 Pulse 90 Pulse Source Pulse Oximeter Pulse Oximetry (%) 98 Oxygen Delivery Method Room Air Intake Visit Reasons: S/p Nevro SCS Implant 01/29/23 - LVM Allergies morphine [Morphine] Allergy (Severe, Verified 02/03/23 10:54) VOMITING/HALLUCINATIONS codeine [Codeine] Allergy (Intermediate, Verified 02/03/23 10:54) VOMITING/HALLUCINATIONS, nause/extended abdomen latex Allergy (Unknown, Verified 02/03/23 10:54) Unknown atorvastatin Adverse Reaction (Intermediate, Verified 02/03/23 10:54) fever, chills, abd pain, numbness capsaicin [CAPSAICIN] Adverse Reaction (Intermediate, Verified 02/03/23 10:54) BURNING bacitracin Allergy (Intermediate, Uncoded 01/29/23 07:12) redness and itching adhesives Allergy (Mild, Uncoded 01/29/23 07:12) rash HPI HPI Comments History of Present Illness Details Cary is a very pleasant 77 year old female who presents to the office today for follow up, 5 days s/p SCS implant with Nevro. [employer] rep in the office for the follow up visit as well. Patient reports at least 90% pain relief of her cervical neck pain since the placement of the SCS device. She does report some discomfort at the incision sites and at the device pocket. After the dressings were changed the pain improved to 2/10. She denies any untoward effects of the device. She is aware of the restrictions and has been wearing the abdominal binder as instructed. Prior: Cary is back in my office after trial of Nevro SCS. The patient change her mind 180 degrees. She reported that after removal of the Nevro SCS she felt great. She was able to wash windows in her apartment without neck pain. She was able to cook herself a dinner and reported only minor pain in the neck which disappeared soon after. All of these after the leads removal. She wants m achine implanted permanently. She reported that her pain was decreased to 5/10 when she was asking the question how much her pain was relieved in percentage points. Therefore considering her pain was 10/10 on previous visits during the trial alone she had at least 50% pain improvement. I offered her period of time to wait and see how long the pain relieve will last. However patient insists on implantation of SCS Nevro. I will schedule her for the procedure. We discussed implantation of the device and we probably will position the battery in the left upper buttock. Prior: The patient reports only 5% of pain improvement during the trial. She reports 1st day in during the trial she was able to sleep better, she reports 2nd and 3rd date pain improvement as well however on day 4 she reports her pain became unbearable. We interrogated today the SCS and the patient reported appropriate stimulation on both sides left and right starting from shoulders and any up in the arms however the stimulation is symmetrical and it appears to be that she shifted her left C2 position electrode down the spinal canal. Unfortunately I would not have C-arm in the office to confirm this but my August guess nevertheless probably is correct. In any case the implantation of Nevro SCS does not seem to be indicated for this patient. I will schedule this patient for new appointment with me to discuss further management. The dressing was removed today the silk sutures anchoring devices to her skin were severed the devices seem to be appropriately positioned in the back without dislodgement. The devices were prepped with ChloraPrep and removed no pathological discharge was observed. Sterile dressing with bacitracin was applied. Prior: complaints of neck pain and pain in the thoracic spine..? She finished physical therapy 8 sessions and continues home exercise program however she reports minimal help if any from physical therapy.? Therapeutic C2-C3 C4 medial branch block was performed on the patient however unfortunately did not result in headache improvement. She reported pain in the projection of mid thoracic spine and she was sent for x-rays of the thoracic spine. Unfortunately she did not go for the the x-ray of the thoracic spine . I will send her again. She reported unsteady gait and change in the posterior. She reports that we and she standing steady and concentrate on some small hand tasks without her awareness she is changing her posture was had and torso twisted to the right side. I will send her to a neurologist to evaluate her on migraines, unsteady gait, and unsteady posture. As of her pain in the neck rib with radiation into the back of the head and down to her shoulders considering that injections did not help her I offered her today Nevro SCS to the patient. I gave her brochure to read. I explained to her need for psychological evaluation. I will schedule her for an appointment after x-rays done and after she decides whether not Nevro SCS is something she would like to do. Prior:? She was referred by orthopedics after evaluation of right shoulder pain and received an intraarticular steroid injection with good relief on 10/09/21. She reports her right shoulder feels great since undergoing the injection and has increased ROM but has had persistent neck pain. She attributes the pain to a fall which she sustained on 07/20/21. She reports the pain radiates up the neck as well as to the shoulders.? However her pain is mostly axial.? She denies any numbness, tingling or weakness. She notes limited ROM and moderate to severe p ain with any activity involving lateral rotation of the neck as well as flexion, such as reading a book. She states the pain is constant and rates the pain a 7- 8/10. She denies any injections or surgery for the neck.? Her MRI is dictated as below and on the MRI short of significant arthritis in arthrosis there is no major foraminal or central canal stenosis disc protrusions or extrusions.? I offered this patient to go for bilateral diagnostic C4-C5 C6 medial branch block which she received on 02/24/2022.? The patient reported that she had only minor improvement for 1st 5 hours after the injection.? She reports less than 20% pain improvement.? I doubt that this is indicative of facet joint arthropathy being her pain generator.? I suspect that she still with suffering from results of acute trauma.? REPLACED BY [facility] Medical History Anxiety Insomnia Osteoporosis Anemia Gait abnormality Partial symptomatic epilepsy with complex partial seizures, not intractable, without status epilepticus Asthma Pure hypercholesterolemia Peripheral arterial disease Unsteady gait Neuropathy Benign essential hypertension Alcoholism in remission Exertional dyspnea Surgical History Hx of foot surgery Hx of nasal septoplasty History of esophagogastroduodenoscopy (EGD) H/O colonoscopy History of angioplasty History of partial gastrectomy History of cholecystectomy History of cataract surgery History of hysterectomy History of tubal ligation S/P excision of neuroma Family History Father CVD (cardiovascular disease) Heart disease Hypertension Stroke Mother CVD (cardiovascular disease) Heart disease Asthma Maternal Grandmother No problems noted. Maternal Grandfather No problems noted. Paternal Grandmother No problems noted. Paternal Grandfather No problems noted. Maternal Aunt Tongue cancer Social History Household Members: None Housing: Assisted Living Facility Are you a primary vocational childcare teacher to a significant other at home: No Do you presently have visiting nurse or other home services: No Alcohol intake: former Patient Tobacco Use Status: Former Tobacco user Quit Date: 1987 e-Cigarette/Vaping Use: Never Used Second Hand Smoke Exposure: Yes Advance Directives Date on File: 06/12/21 service: No Current occupational status: retired Cognitive needs: No Hearing needs: No Vision needs: Yes Review of Systems Const All systems reviewed & are unremarkable except as noted in HPI and below Physical Exam Vital Signs: Last Vital Signs Pulse 90 02/03/23 10:55 Resp 16 02/03/23 10:55 BP 130/62 02/03/23 10:55 Pulse Ox 98 02/03/23 10:55 Oxygen Delivery Method Room Air 02/03/23 10:55 General: awake, alert, oriented. Answers questions appropriately. Fully engaged in examination. Skin: warm, dry, intact HEENT: Normocephalic. Hearing intact. Cardiac: External chest normal in appearance. Respiratory: No cough, audible wheezing or stridor. Abdomen: without gross distension. MS: No obvious swelling or deformities. Able to transition from sit to stand unassisted. Ambulates with bilaterally normal heel strike and toe off Neurological: Oriented to person, place, time and situation. Thought process in tact. No gait abnormalities appreciated. Psychiatric: Appropriate mood and affect. Good judgment and insight. Existing dressing removed, area cleansed with chloraprep. Incision sites are clean, dry, intact. Without discharge, redness, swelling, erythema or tenderness. Dawood intact. Both incisions appear to be healing well. Area cleansed with chloraprep again. Bacitracin ointment, dry sterile guaze and Tegaderm dressing applied. Abdominal binder reapplied. Patient tolerated well. Assessment & Plan Assessment & Plan (1) Spondylosis of thoracic spine: Code(s): M47.814 - Spondylosis without myelopathy or radiculopathy, thoracic region (2) Cervical radiculitis: Code(s): M54.12 - Radiculopathy, cervical region (3) Degenerative disc disease, cervical: Code(s): M50.30 - Other cervical disc degeneration, unspecified cervical region (4) Neck pain: Code(s): M54.2 - Cervicalgia (5) Osteoporosis: Code(s): M81.0 - Age-related osteoporosis without current pathological fracture Qualifiers: Osteoporosis type: age-related Presence of current pathological fracture: without current pathological fracture Qualified Code(s): M81.0 - Age- related osteoporosis without current pathological fracture (6) Unsteady gait: Code(s): R26.81 - Unsteadiness on feet (7) Cervical spondylosis: Code(s): M47.812 - Spondylosis without myelopathy or radiculopathy, cervical region (8) Balance disorder: Code(s): R26.89 - Other abnormalities of gait and mobility (9) Migraine: Code(s): G43.909 - Migraine, unspecified, not intractable, without status migrainosus Qualifiers: Migraine type: unspecified Status migrainosus presence: without status migrainosus Intractability: not intractable Qualified Code(s): G43.909 - Migraine, unspecified, not intractable, without status migrainosus (10) Chronic pain syndrome: Code(s): G89.4 - Chronic pain syndrome (11) Muscle spasms of neck: Code(s): M62.838 - Other muscle spasm (12) Spondylosis of cervical region without myelopathy or radiculopathy: Code(s): M47.812 - Spondylosis without myelopathy or radiculopathy, cervical region Eloisa Townsned is a very pleasant 77 year old female who presented to the office today for follow up 5 days s/p Nevro SCS implant. Patient reports greater than 90% relief of her chronic pain with only 2/10 pain at incision/device pocket sites. She denies any untoward effects of the procedure. Dressings changed as per above. She is utilizing abdominal binder as instructed, she is aware of activity restrictions and to avoid showers at this time. [employer] rep discussed current coverage and expectations with the patient, no device adjustments necessary today. All questions and concerns were answered, patient will follow up in 1 week for wound check and suture removal. Sooner if needed. Coding Level of Care Code Est Pt Level 3 (59299) Diagnoses Spondylosis of thoracic spine M47.814 Cervical radiculitis M54.12 Degenerative disc disease, cervical M50.30 Neck pain M54.2 Age-related osteoporosis without current pathological fracture M81.0 Osteoporosis type: age-related Presence of current pathological fracture: without current pathological fracture Unsteady gait R26.81 Cervical spondylosis M47.812 Balance disorder R26.89 Migraine without status migrainosus, not intractable, unspecified migraine type G43.909 Migraine type: unspecified Status migrainosus presence: without status migrainosus Intractability: not intractable Chronic pain syndrome G89.4 Muscle spasms of neck M62.838 Spondylosis of cervical region without myelopathy or radiculopathy M47.812
== END 2023-02-03 11:00 | disposition home or self-care (01) ==
PROVIDERS: PCP Internal Medicine; Visit Provider Registered Nurse Emergency
DX: M47.814 Spondylosis without myelopathy or radiculopathy, thoracic region (principal); M54.12 Radiculopathy, cervical region; M50.30 Other cervical disc degeneration, unspecified cervical region; M54.2 Cervicalgia; M81.0 Age-related osteoporosis without current pathological fracture; R26.81 Unsteadiness on feet; M47.812 Spondylosis without myelopathy or radiculopathy, cervical region; R26.89 Other abnormalities of gait and mobility; G43.909 Migraine, unspecified, not intractable, without status migrainosus; G89.4 Chronic pain syndrome; M62.838 Other muscle spasm
CPT/HCPCS: 99024

== ENCOUNTER → 2023-02-03 10:35 | Outpatient (BNVA) | payer MEDICARE, MEDICAID, SELFPAY | PROVIDERS: PCP Internal Medicine; Visit Provider Registered Nurse Emergency | DX: M47.814 Spondylosis without myelopathy or radiculopathy, thoracic region (principal); M54.12 Radiculopathy, cervical region; M54.2 Cervicalgia; M81.0 Age-related osteoporosis without current pathological fracture; M47.812 Spondylosis without myelopathy or radiculopathy, cervical region; M62.838 Other muscle spasm; R26.81 Unsteadiness on feet; R26.89 Other abnormalities of gait and mobility; G43.909 Migraine, unspecified, not intractable, without status migrainosus; G89.4 Chronic pain syndrome; M50.30 Other cervical disc degeneration, unspecified cervical region | CPT/HCPCS: 99212 ==

== ENCOUNTER 2023-02-10 11:20 | Outpatient (AMB) | payer MEDICARE, MEDICAID, SELFPAY ==
--- NOTE | 2023-02-10 11:22 | MHC.OFFVIS ---
Intake Vital Signs 02/10/23 11:30 Height 5 ft 6 in Weight 110 lb BMI 17.8 BP 106/60 Blood Pressure Location Lt brachial Position Sitting Respiration 14 Pulse 71 Pulse Source Pulse Oximeter Pulse Oximetry (%) 96 Oxygen Delivery Method Room Air Intake Visit Reasons: S/p [facility] SCS Implant 01/29/23 # not working Allergies morphine [Morphine] Allergy (Severe, Verified 02/10/23 11:30) VOMITING/HALLUCINATIONS codeine [Codeine] Allergy (Intermediate, Verified 02/10/23 11:30) VOMITING/HALLUCINATIONS, nause/extended abdomen latex Allergy (Unknown, Verified 02/10/23 11:30) Unknown atorvastatin Adverse Reaction (Intermediate, Verified 02/10/23 11:30) fever, chills, abd pain, numbness capsaicin [CAPSAICIN] Adverse Reaction (Intermediate, Verified 02/10/23 11:30) BURNING bacitracin Allergy (Intermediate, Uncoded 01/29/23 07:12) redness and itching adhesives Allergy (Mild, Uncoded 01/29/23 07:12) rash HPI HPI Comments History of Present Illness Details Cary presents back to the office today for follow up, 2 weeks s/p [facility] SCS implant cervical placement. Cecilia from [employer] here to see patient also. She continues to report greater than 90% pain relief with improvement in function and mobility. Pain today 2/10 in her left lower back, she reports tripping on her cat and bumping into the wall. Denies fall or other injury. Patient has been following the post procedure restrictions and wearing her abdominal binder as instructed. Prior: Cary is a very pleasant 77 year old female who presents to the office today for follow up, 5 days s/p SCS implant with [facility]. [employer] rep in the office for the follow up visit as well. Patient reports at least 90% pain relief of her cervical neck pain since the placement of the SCS device. She does report some discomfort at the incision sites and at the device pocket. After the dressings were changed the pain improved to 2/10. She denies any untoward effects of the device. She is aware of the restrictions and has been wearing the abdominal binder as instructed. Prior: Cary is back in my office after trial of Nevro SCS. The patient change her mind 180 degrees. She reported that after removal of the [facility]ro SCS she felt great. She was able to wash windows in her apartment without neck pain. She was able to cook herself a dinner and reported only minor pain in the neck which disappeared soon after. All of these after the leads removal. She wants machine implanted permanently. She reported that her pain was decreased to 5/10 when she was asking the question how much her pain was relieved in percentage points. Therefore considering her pain was 10/10 on previous visits during the trial alone she had at least 50% pain improvement. I offered her period of time to wait and see how long the pain relieve will last. However patient insists on implantation of SCS [facility]. I will schedule her for the procedure. We discussed implantation of the device and we probably will position the battery in the left upper buttock. Prior: The patient reports only 5% of pain improvement during the trial. She reports 1st day in during the trial she was able to sleep better, she reports 2nd and 3rd date pain improvement as well however on day 4 she reports her pain became unbearable. We interrogated today the SCS and the patient reported appropriate stimulation on both sides left and right starting from shoulders and any up in the arms however the stimulation is symmetrical and it appears to be that she shifted her left C2 position electrode down the spinal canal. Unfortunately I would not have C-arm in the office to confirm this but my August guess nevertheless probably is correct. In any case the implantation of [employer]ro SCS does not seem to be indicated for this patient. I will schedule this patient for new appointment with me to discuss further management. The dressing was removed today the silk sutures anchoring devices to her skin were severed the devices seem to be appropriately positioned in the back without dislodgement. The devices were prepped with ChloraPrep and removed no pathological discharge was observed. Sterile dressing with bacitracin was applied. Prior: complaints of neck pain and pain in the thoracic spine..? She finished physical therapy 8 sessions and continues home exercise program however she reports minimal help if any from physical therapy.? Therapeutic C2-C3 C4 medial branch block was performed on the patient however unfortunately did not result in headache improvement. She reported pain in the projection of mid thoracic spine and she was sent for x-rays of the thoracic spine. Unfortunately she did not go for the the x-ray of the thoracic spine . I will send her again. She reported unsteady gait and change in the posterior. She reports that we and she standing steady and concentrate on some small hand tasks without her awareness she is changing her posture was had and torso twisted to the right side. I will send her to a neurologist to evaluate her on migraines, unsteady gait, and unsteady posture. As of her pain in the neck rib with radiation into the back of the head and down to her shoulders considering that injections did not help her I offered her today [facility]ro SCS to the patient. I gave her brochure to read. I explained to her need for psychological evaluation. I will schedule her for an appointment after x-rays done and after she decides whether not Nevro SCS is something she would like to do. Prior:? She was referred by orthopedics after evaluation of right shoulder pain and received an intraarticular steroid injection with good relief on 10/09/21. She reports her right shoulder feels great since undergoing the injection and has increased ROM but has had persistent neck pain. She attributes the pain to a fall which she sustained on 07/20/21. She reports the pain radiates up the neck as well as to the shoulders.? However her pain is mostly axial.? She denies any numbness, tingling or weakness. She notes limited ROM and moderate to severe pain with any activity involving lateral rotation of the neck as well as flexion, such as reading a book. She states the pain is constant and rates the pain a 7-8/10. She denies any injections or surgery for the neck.? Her MRI is dictated as below and on the MRI short of significant arthritis in arthrosis there is no major foraminal or central canal stenosis disc protrusions or extrusions.? I offered this patient to go for bilateral diagnostic C4-C5 C6 medial branch block which she received on 02/24/2022.? The patient reported that she had only minor improvement for 1st 5 hours after the injection.? She reports less than 20% pain improvement.? I doubt that this is indicative of facet joint arthropathy being her pain generator.? I suspect that she still with suffering from results of acute trauma.? [facility] Medical History Anxiety Insomnia Osteoporosis Anemia Gait abnormality Partial symptomatic epilepsy with complex partial seizures, not intractable, without status epilepticus Asthma Pure hypercholesterolemia Peripheral arterial disease Unsteady gait Neuropathy Benign essential hypertension Alcoholism in remission Exertional dyspnea Surgical History Hx of foot surgery Hx of nasal septoplasty History of esophagogastroduodenoscopy (EGD) H/O colonoscopy History of angioplasty History of partial gastrectomy History of cholecystectomy History of cataract surgery History of hysterectomy History of tubal ligation S/P excision of neuroma Family History Father CVD (cardiovascular disease) Heart disease Hypertension Stroke Mother CVD (cardiovascular disease) Heart disease Asthma Maternal Grandmother No problems noted. Maternal Grandfather No problems noted. Paternal Grandmother No problems noted. Paternal Grandfather No problems noted. Maternal Aunt Tongue cancer Household Members: None Housing: Assisted Living Facility Are you a primary patient centered care specialist to a significant other at home: No Do you presently have visiting nurse or other home services: No Alcohol intake: former Patient Tobacco Use Status: Former Tobacco user Quit Date: 1987 e-Cigarette/Vaping Use: Never Used Second Hand Smoke Exposure: Yes Advance Directives Date on File: 06/12/21 service: No Current occupational status: retired Cognitive needs: No Hearing needs: No Vision needs: Yes Review of Systems Const All systems reviewed & are unremarkable except as noted in HPI and below Physical Exam Vital Signs: Last Vital Signs Pulse 71 02/10/23 11:30 Resp 14 02/10/23 11:30 BP 106/60 02/10/23 11:30 Pulse Ox 96 02/10/23 11:30 Oxygen Delivery Method Room Air 02/10/23 11:30 BMI result Body Mass Index 17.8 General: awake, alert, oriented. Answers questions appropriately. Fully engaged in examination. Skin: warm, dry, intact HEENT: Normocephalic. Hearing intact. Cardiac: External chest normal in appearance. Respiratory: No cough, audible wheezing or stridor. Abdomen: without gross distension. MS: No obvious swelling or deformities. Able to transition from sit to stand unassisted. Ambulates with bilaterally normal heel strike and toe off Neurological: Oriented to person, place, time and situation. Thought process intact. No gait abnormalities appreciated. Psychiatric: Appropriate mood and affect. Good judgment and insight. Existing dressing removed, area cleansed with chloraprep. Incision sites are clean, dry, intact. Without discharge, redness, swelling, erythema or tenderness. Dawood removed. Both incisions well approximated and healing well. Area cleansed with chloraprep again. Bacitracin ointment, dry sterile gauze and Tegaderm dressing applied. Patient tolerated well. Results Reviewed Results Reviewed: MR CERVICAL SPINE WITHOUT CONTRAST 01/12/22 FINDINGS: VERTEBRAL BODIES AND PARASPINAL SOFT TISSUES: The marrow signal is within normal limits. There are no compression fractures. Mild anterolisthesis noted at the C4-C5 level. The paraspinal soft tissues appear normal. 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 The vertebral artery flow-voids are maintained. The imaged lung apices are grossly clear. CERVICOMEDULLARY JUNCTION AND VISUALIZED POSTERIOR FOSSA: The craniovertebral junction appears normal. The imaged portions of the brain are unremarkable. No cord signal abnormality or syrinx is seen. SPINAL LEVELS: C2-C3: No significant disc pathology, central canal stenosis, or foraminal narrowing. C3-C4: Shallow central disc protrusion noted without central canal stenosis. Moderate left-sided facet arthropathy without foraminal encroachment. C4-C5: Mild anterior subluxation and ankylosis of the right facet joint. No central canal stenosis. Stable moderate right foraminal narrowing. C5-C6: Broad-based disc-osteophyte complex without central canal stenosis. Stable [id number] left foraminal narrowing. C6-C7: Very mild disc bulge without central canal stenosis or foraminal encroachment. C7-T1: No disc pathology. No central canal stenosis or foraminal narrowing. IMPRESSION: Stable cervical spondylosis compared to prior imaging. No central canal stenosis. Small central disc protrusion at the C3-C4 level. Moderate right foraminal narrowing and hypertrophic facet ankylosis on the right side at the C4-C5 level. Moderate degenerative disc disease at the C5-C6 level with [id number] foraminal narrowing, more so on the left side. XR CERVICAL SPINE 10/16/21 FINDINGS: There is straightening and mild reversal cervical lordosis with mild dextrocurvature cervical thoracic junction similar to prior imaging. There is no cervical vertebral compression, spondylolisthesis, destructive process, or prevertebral soft tissue swelling. The odontoid appears intact. There are again degenerative changes between anterior arch C1 and the dens. Degenerative disc changes are present at C5-C6 and lesser at C4-C5. There is mild disc narrowing and vertebral spurring. 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 IMPRESSION: -Straightening and mild reversal cervical lordosis with mild dextrocurvature cervical thoracic spine. -Degenerative disc changes C5-C6 and lesser at C4-C5. Assessment & Plan Assessment & Plan (1) Spondylosis of thoracic spine: Code(s): M47.814 - Spondylosis without myelopathy or radiculopathy, thoracic region (2) Cervical radiculitis: Code(s): M54.12 - Radiculopathy, cervical region (3) Degenerative disc disease, cervical: Code(s): M50.30 - Other cervical disc degeneration, unspecified cervical region (4) Neck pain: Code(s): M54.2 - Cervicalgia (5) Osteoporosis: Code(s): M81.0 - Age-related osteoporosis without current pathological fracture Qualifiers: Osteoporosis type: age-related Presence of current pathological fracture: without current pathological fracture Qualified Code(s): M81.0 - Age-related osteoporosis without current pathological fracture (6) Unsteady gait: Code(s): R26.81 - Unsteadiness on feet (7) Cervical spondylosis: Code(s): M47.812 - Spondylosis without myelopathy or radiculopathy, cervical region (8) Balance disorder: Code(s): R26.89 - Other abnormalities of gait and mobility (9) Migraine: Code(s): G43.909 - Migraine, unspecified, not intractable, without status migrainosus Qualifiers: Migraine type: unspecified Status migrainosus presence: without status migrainosus Intractability: not intractable Qualified Code(s): G43.909 - Migraine, unspecified, not intractable, without status migrainosus (10) Chronic pain syndrome: Code(s): G89.4 - Chronic pain syndrome (11) Muscle spasms of neck: Code(s): M62.838 - Other muscle spasm (12) Spondylosis of cervical region without myelopathy or radiculopathy: Code(s): M47.812 - Spondylosis without myelopathy or radiculopathy, cervical region Eloisa Townsend is a very pleasant 77 year old female who presented to the office today for follow up 2 weeks s/p [facility]ro SCS implant. Sutures removed and dressings changed as per above. Patient reports greater than 90% relief of her chronic pain. She denies any untoward effects of the procedure. She is utilizing abdominal binder as instructed, she is aware of activity restrictions. [employer] rep discussed current coverage and expectations with the patient, no device adjustments necessary today. All questions and concerns were answered, patient will follow up with Dr Sebastian as needed. Coding Level of Care Code Est Pt Level 3 (07382) Diagnoses Spondylosis of thoracic spine M47.814 Cervical radiculitis M54.12 Degenerative disc disease, cervical M50.30 Neck pain M54.2 Age-related osteoporosis without current pathological fracture M81.0 Osteoporosis type: age-related Presence of current pathological fracture: without current pathological fracture Unsteady gait R26.81 Cervical spondylosis M47.812 Balance disorder R26.89 Migraine without status migrainosus, not intractable, unspecified migraine type G43.909 Migraine type: unspecified Status migrainosus presence: without status migrainosus Intractability: not intractable Chronic pain syndrome G89.4 Muscle spasms of neck M62.838 Spondylosis of cervical region without myelopathy or radiculopathy M47.812
[2023-02-10 11:30] VITALS: BP 106/60; PULSE 71; RESP 14; O2SAT 96; BMI 17.8
== END 2023-02-10 11:49 | disposition home or self-care (01) ==
PROVIDERS: PCP Internal Medicine; Visit Provider Registered Nurse Emergency
DX: M47.814 Spondylosis without myelopathy or radiculopathy, thoracic region (principal); M54.12 Radiculopathy, cervical region; M54.2 Cervicalgia; M81.0 Age-related osteoporosis without current pathological fracture; R26.81 Unsteadiness on feet; M47.812 Spondylosis without myelopathy or radiculopathy, cervical region; R26.89 Other abnormalities of gait and mobility; G43.909 Migraine, unspecified, not intractable, without status migrainosus; G89.4 Chronic pain syndrome; M62.838 Other muscle spasm
CPT/HCPCS: 99213

== ENCOUNTER → 2023-02-10 11:20 | Outpatient (BNVA) | payer MEDICARE, MEDICAID, SELFPAY | PROVIDERS: PCP Internal Medicine; Visit Provider Registered Nurse Emergency | DX: M47.22 Other spondylosis with radiculopathy, cervical region (principal); M50.30 Other cervical disc degeneration, unspecified cervical region; M47.814 Spondylosis without myelopathy or radiculopathy, thoracic region; M81.0 Age-related osteoporosis without current pathological fracture; R26.81 Unsteadiness on feet; G43.909 Migraine, unspecified, not intractable, without status migrainosus; G89.4 Chronic pain syndrome; M62.838 Other muscle spasm | CPT/HCPCS: 99212 ==

== ENCOUNTER 2023-02-22 15:36 | Outpatient (AMB) | payer MEDICARE, MEDICAID, SELFPAY ==
--- NOTE | 2023-02-22 15:44 | A.OFFPC_ITS ---
Vital Signs 02/22/23 15:45 Height 5 ft 6 in Weight 112 lb 6 oz BMI 18.1 BP 110/60 Blood Pressure Location Lt brachial Position Sitting Pulse 80 Pulse Source Pulse Oximeter Pulse Oximetry (%) 95 Oxygen Delivery Method Room Air Intake Visit Reasons: Post op FU, Spine surgery Principal Secretary Required: No Accompanied by: Self / Same As Patient Allergies morphine [Morphine] Allergy (Severe, Verified 02/22/23 16:27) VOMITING/HALLUCINATIONS codeine [Codeine] Allergy (Intermediate, Verified 02/22/23 16:27) VOMITING/HALLUCINATIONS, nause/extended abdomen latex Allergy (Unknown, Verified 02/22/23 16:27) Unknown atorvastatin Adverse Reaction (Intermediate, Verified 02/22/23 16:27) fever, chills, abd pain, numbness capsaicin [CAPSAICIN] Adverse Reaction (Intermediate, Verified 02/22/23 16:27) BURNING bacitracin Allergy (Intermediate, Uncoded 02/22/23 16:27) redness and itching adhesives Allergy (Mild, Uncoded 02/22/23 16:27) rash Medication List - Last Reconciled 02/22/23 by Espinoza Santiago MD albuterol sulfate 90 mcg/actuation 2 puffs PO Q6H PRN aspirin 81 mg PO DAILY clonazepam 1 mg PO BEDTIME clonazepam 0.5 mg PO BID clopidogrel 75 mg PO DAILY duloxetine 30 mg PO BID Flovent HFA 110 mcg/actuation (fluticasone propionate) 1 puff PO BID NS fluticasone propionate 50 mcg/actuation 2 sprays intranasal DAILY PRN inhalational spacing device (Aerochamber MV spacer) Use with respiratory inhaler as directed lamotrigine 200 mg PO DAILY sertraline 50 mg PO DAILY 90 days simvastatin 20 mg PO BEDTIME topiramate 25 mg PO BEDTIME trazodone 100 mg PO DAILY Tobacco use date assessed: 02/22/23 Fall risk assessment: No Falls in past year Last assessed Fall Risk: 02/22/23 Dental Screening Dental Screen Date: 02/22/23 Did you have a dental visit in the last 12 months?: No Did you have a dental problem in the last 6 months where you did not have access to dental care?: No Was dental information given to patient?: No HPI Post op FU, Spine surgery HPI Details Patient comes in today for her follow up visit States that she feels okay and that her previous increased neck pain has improved a lot since she had spinal cord stimulator implantation surgery done about 3 weeks ago States that her neck pain has improved at least 90% since the SCS implantation and she is now able to do a lot of things/activities that she was not able to do anymore previously due to her increased neck pain She denies any headaches or dizziness lately - states that she has also noticed a significant improvement in her headaches once her neck pains were better controlled Denies any chest pains, no SOB No nausea/vomiting, no abdominal pain No change in bowel habits noted She has not had any follow up labs done in a couple of years now [facility] Medical History Anxiety Insomnia Osteoporosis Anemia Gait abnormality Partial symptomatic epilepsy with complex partial seizures, not intractable, without status epilepticus Asthma Pure hypercholesterolemia Peripheral arterial disease Unsteady gait Neuropathy Benign essential hypertension Alcoholism in remission Exertional dyspnea Surgical History Hx of foot surgery Hx of nasal septoplasty History of esophagogastroduodenoscopy (EGD) H/O colonoscopy History of angioplasty History of partial gastrectomy History of cholecystectomy History of cataract surgery History of hysterectomy History of tubal ligation S/P excision of neuroma Family History Father CVD (cardiovascular disease) Heart disease Hypertension Stroke Mother CVD (cardiovascular disease) Heart disease Asthma Maternal Grandmother No problems noted. Maternal Grandfather No problems noted. Paternal Grandmother No problems noted. Paternal Grandfather No problems noted. Maternal Aunt Tongue cancer Social History Household Members: None Housing: Assisted Living Facility Are you a primary primary care sales representative to a significant other at home: No Do you presently have visiting nurse or other home services: No Alcohol intake: former Comment: NA Patient Tobacco Use Status: Former Tobacco user Quit Date: Quit 1987 e-Cigarette/Vaping Use: Never Used Second Hand Smoke Exposure: Yes Advance Directives Date on File: 06/12/21 service: No Current occupational status: retired Cognitive needs: No Hearing needs: No Vision needs: Yes Questionnaire PHQ-9 Over the last 2 weeks, how often have you been bothered by any of the following problems? 1. Little interest or pleasure in doing things: nearly every day 2. Feeling down, depressed, or hopeless: nearly every day 3. Trouble falling or staying asleep, or sleeping too much: nearly every day 4. Feeling tired or having little energy: nearly every day 5. Poor appetite or overeating: not at all 6. Feeling bad about yourself - or that you are a failure or have let yourself or your family down: not at all 7. Trouble concentrating on things, such as reading the newspaper or watching television: not at all 8. Moving or speaking so slowly that other people could have noticed. Or the opposite - being so fidgety or restless that you have been moving around a lot more than usual: not at all 9. Thoughts that you would be better off or of hurting yourself in some way: not at all Total score: 12 Depression Screening Interpretation: Positive Depression Screening Follow-up: Existing condition and In treatment Depression Screening Done: Yes 25893 - PHQ-9 Billing: Yes Source: Developed by Drs. Umesh Petersen, Eden Gonsalez, Adán Suazo and colleagues, with an educational mynor from [employer]. Thrive Questionnaire Date Thrive assessed: 02/22/23 I am a: Patient What is your living situation today?: I have a steady place to live Within the past 12 months, did the food you bought not last and you didn't have the money to get more?: Never true Within the past 12 months, did you worry whether your food would run out before you got money to buy more?: Never true Do you have trouble paying for medicines?: No Do you have trouble getting transportation to medical appointments?: No Do you have trouble paying your heating and electricity bill?: No Do you have trouble taking care of your child, family member or friend?: No Do you have trouble with day-to-day activities such as bathing, preparing meals, shopping, managing finances, etc.?: No Are you currently unemployed and looking for a job?: No Are you interested in more education?: No Please select the resources that you would like help with: None Currently or been in a relationship where the following occur: no concerns reported AUDIT C Alcohol Use Questionnaire (AUDIT-C) 1. How often do you have a drink containing alcohol?: Never 3. How often do you have six or more drinks on one occasion?: Never Total Score: 0 Score Reviewed/Action Taken: Yes CHANTELL-7 AMB Questionnaire CHANTELL-7 Date CHANTELL - 7 assessed: 02/22/23 Feeling nervous, anxious, or on edge: 0 = Not at all Not being able to stop or control worryin = Not at all Worrying too much about different things: 0 = Not at all Trouble relaxin = Nearly every day Being so restless that it is hard to sit still: 3 = Nearly every day Becoming easily annoyed or irritable: 3 = Nearly every day Feeling afraid as if something awful might happen: 3 = Nearly every day Total CHANTELL-7 score (0-4 normal; 5-9 mild; 10-14 moderate; 15-21 severe): 12 Source: Developed by Drs. Umesh Petersen, Eden Gonsalez, Adán Suazo and colleagues, with an educational mynor from [employer]. Review of Systems Const Denies chills, Reports fatigue, Denies fever(s) and Denies headache(s) ENT Denies dysphagia, Denies dizziness, Denies otalgia, Denies headache(s), Reports neck pain (minimal - better controlled lately), Denies odynophagia and Denies sore throat Card Denies chest pain, Denies palpitations and Denies dyspnea Resp Denies cough and Denies dyspnea GI Denies abdominal pain, Denies constipation, Denies dysphagia, Denies heartburn, Denies diarrhea, Denies nausea, Denies odynophagia and Denies vomiting Denies difficulty voiding, Denies nocturia and Denies dysuria Musc Details: (+)recurrent pain over both lower legs Reports abnormal gait (unsteady), Reports arthralgias (right shoulder, on and off - states that has also improved a lot lately) and Reports neck pain (minimal - better controlled lately) Skin/Breast Denies rash Neuro Reports abnormal gait (unsteady), Denies dizziness and Denies headache(s) Psych Reports anxiety Endo Reports fatigue and Denies palpitations Physical exam (Primary Care) Vital Signs: Last Vital Signs Pulse 80 02/22/23 15:45 BP 110/60 02/22/23 15:45 Pulse Ox 95 02/22/23 15:45 Oxygen Delivery Method Room Air 02/22/23 15:45 BMI result Body Mass Index 18.1 Tobacco/Smoking Status: Tobacco use Status Tobacco use date assessed 02/22/23 02/22/23 15:51 Patient Tobacco Use Status Former Tobacco user 02/22/23 15:44 e-Cigarette/Vaping Use Never Used 02/22/23 15:44 PHQ-9: PHQ-9 Score PHQ-9: Total score 12 02/22/23 16:28 Depression Screening Interpretation: Positive Depression Screening Follow-up: Existing condition and In treatment Thrive Assessment: Date of Thrive Assessment Date Thrive assessed 02/22/23 02/22/23 15:51 Currently or been in a relationship where the following occur: no concerns repor frank Const General: no acute distress and alert Orientation/consciousness: patient oriented x3 HENMT Ears: TM's normal bilaterally and EAC's normal Throat: Yes posterior oropharynx normal and Yes tonsils normal (no TP congestion) Neck Neck: Yes no lymphadenopathy and Yes tender (over the cervical spine and paraspinal areas bilaterally, mild) Resp Auscultation: clear to auscultation bilaterally, no rales and no wheezes Cardio Rate: regular rate Rhythm: regular rhythm Heart sounds: no murmurs GI Palpation (GI): Soft to palpation and nontender Auscultation: normal bowel sounds Back/Spine/Pelvis Cervical Spine: cervical muscular tenderness and Cervical spine tenderness (mild) Thoracic/Lumbar Spine: No thoracic spinal tenderness Skin Rashes: no rashes Neuro General: patient oriented x3 and no focal motor deficits Extrem General: Yes no clubbing, cyanosis or edema Assessment and Plan Assessment & Plan (1) Degenerative disc disease, cervical: Code(s): M50.30 - Other cervical disc degeneration, unspecified cervical region Plan: S/P spinal cord implantation by pain management last month on 01/29/2023 Patient states that her neck pain has improved significantly since and she currently has no perceived pain at all over her neck and she is very happy with the outcome of her interventional procedure Follow up with pain management as scheduled (2) Migraine: Code(s): G43.909 - Migraine, unspecified, not intractable, without status migrainosus Qualifiers: Intractability: not intractable Migraine type: unspecified Status migrainosus presence: without status migrainosus Qualified Code(s): G43.909 - Migraine, unspecified, not intractable, without status migrainosus Plan: Reinforced avoidance of potential migraine triggers Headaches were much better controlled on prophylactic Tx but states that she has hardly had any migraine headache episode since her neck pain have been much better controlled so it is likely that her previous neck pains were also a trigger for her migraines Continue Topiramate 25 mg Q HS (3) Benign essential hypertension: Code(s): I10 - Essential (primary) hypertension Plan: Reinforced low sodium diet - goal is systolic BP of at least 130 to 140 mm or less Used to take Losartan 50 mg QD and Clonidine 0.1 mg TID for her blood pressure but does not appear to need any Rx for her BP lately She is reminded to continue monitoring her blood pressure regularly for now (4) Pure hypercholesterolemia: Code(s): E78.00 - Pure hypercholesterolemia, unspecified Plan: Reinforced low cholesterol diet Continue Simvastatin 20 mg QD Will recheck her labs and fasting lipids LEWIS for follow up as she has not had any follow up labs done in the past couple of years (5) Anemia: Code(s): D64.9 - Anemia, unspecified Qualifiers: Anemia type: unspecified type Qualified Code(s): D64.9 - Anemia, unspecified Plan: Corrected; H/H was normal on her previous labs S/P parenteral iron therapy last year in June 2021; she has taken iron tablets in the past but could not tolerate Rx due to severe constipation Will recheck her CBC for follow up Follow up with hematology as scheduled (6) Neuropathy: Comment: NCV done in 2019 - sees Dr. Robbins Code(s): G62.9 - Polyneuropathy, unspecified Plan: NCV done in 2019 revealed (+) sensory, motor and axonal peripheral neuropathy Follow up with neurology as scheduled Was on Gabapentin 100 mg once a day at bedtime in the past but currently does not appear to be on anything for neuropathy (7) Peripheral arterial disease: Code(s): I73.9 - Peripheral vascular disease, unspecified Plan: Symptoms have improved significantly following balloon angioplasty of bilateral lower extremities a couple of years ago Continue Clopidogrel 75 mg once a day Follow-up with vascular surgery (Dr. Marquez) as scheduled (8) Asthma: Code(s): J45.909 - Unspecified asthma, uncomplicated Qualifiers: Asthma complication type: uncomplicated Asthma persistence: persistent Asthma severity: moderate Qualified Code(s): J45.40 - Moderate persistent asthma, uncomplicated Plan: Stable/controlled - continue Flovent HFA 110 mcg 1 puff BID and Ventolin HFA 2 puffs 4 times a day as needed (9) Partial symptomatic epilepsy with complex partial seizures, not intractable, without status epilepticus: Code(s): G40.209 - Localization-related (focal) (partial) symptomatic epilepsy and epileptic syndromes with complex partial seizures, not intractable, without status epilepticus Plan: Stable with no recent recurrence - EEG, head CT and carotid doppler done previously all came back normal Follow-up with Neurology as scheduled or as needed (10) Osteoporosis: Code(s): M81.0 - Age-related osteoporosis without current pathological fracture Qualifiers: Osteoporosis type: age-related Presence of current pathological fracture: without current pathological fracture Qualified Code(s): M81.0 - Age- related osteoporosis without current pathological fracture Plan: Repeat BMD done on 07/17/2021 revealed (+) osteoporosis - BMD in the AP spine has declined 10.8% from previous and BMD in the left femur has also declined from previous but only by -1.3% Fall precautions reinforced Consider referral to endocrinology for further evaluation and management, given her age, but patient would like to think about this for now Offered also to start her on oral bisphosphonates but after hearing about their potential side effects, patient declined Rx (11) Insomnia: Code(s): G47.00 - Insomnia, unspecified Qualifiers: Insomnia type: unspecified Qualified Code(s): G47.00 - Insomnia, unspecified Plan: Sleep hygiene reinforced Continue Trazodone 100 mg Q HS PRN (12) Anxiety: Code(s): F41.9 - Anxiety disorder, unspecified Plan: Continue Sertraline 50 mg QD - Rx appears to have helped her a lot with her anxiety Plan Follow up in 4 months Orders: Orders Complete Blood Count Auto Diff 02/22/23 I10 - Essential (primary) hypertension Comprehensive [place]. Panel Fast 02/22/23 E78.00 - Pure hypercholesterolemia, unspecified UA CC w/rflx Micro + Cult 02/22/23 R30.0 - Dysuria Lipid Panel 02/22/23 E78.00 - Pure hypercholesterolemia, unspecified TSH reflex Free T4 02/22/23 E78.00 - Pure hypercholesterolemia, unspecified Vitamin D 25-OH Total 02/22/23 E55.9 - Vitamin D deficiency, unspecified Coding Level of Care Code Est Pt Level 4 (49934) Diagnoses Degenerative disc disease, cervical M50.30 Migraine without status migrainosus, not intractable, unspecified migraine type G43.909 Intractability: not intractable Migraine type: unspecified Status migrainosus presence: without status migrainosus Benign essential hypertension I10 Pure hypercholesterolemia E78.00 Anemia, unspecified type D64.9 Anemia type: unspecified type Neuropathy G62.9 Peripheral arterial disease I73.9 Moderate persistent asthma without complication J45.40 Asthma complication type: uncomplicated Asthma persistence: persistent Asthma severity: moderate Partial symptomatic epilepsy with complex partial seizures, not intractable, without status epilepticus G40.209 Age-related osteoporosis without current pathological fracture M81.0 Osteoporosis type: age-related Presence of current pathological fracture: without current pathological fracture Insomnia, unspecified type G47.00 Insomnia type: unspecified Anxiety F41.9
[2023-02-22 15:45] VITALS: BP 110/60; PULSE 80; O2SAT 95; BMI 18.1
== END 2023-02-22 16:40 | disposition home or self-care (01) ==
PROVIDERS: PCP Internal Medicine; Visit Provider Internal Medicine
DX: I73.9 Peripheral vascular disease, unspecified (principal); G40.209 Localization-related (focal) (partial) symptomatic epilepsy and epileptic syndromes with complex partial seizures, not intractable, without status epilepticus; M50.30 Other cervical disc degeneration, unspecified cervical region; G43.909 Migraine, unspecified, not intractable, without status migrainosus; I10 Essential (primary) hypertension; E78.00 Pure hypercholesterolemia, unspecified; D64.9 Anemia, unspecified; G62.9 Polyneuropathy, unspecified; J45.40 Moderate persistent asthma, uncomplicated; M81.0 Age-related osteoporosis without current pathological fracture; G47.00 Insomnia, unspecified; F41.9 Anxiety disorder, unspecified
CPT/HCPCS: 99214

== ENCOUNTER 2023-06-15 09:04 | Outpatient (REF) | payer MEDICARE, MEDICAID, SELFPAY ==
[2023-06-15 11:42] LABS: Vitamin B12 523 pg/mL (200-900)
== END 2023-06-15 09:05 | disposition home or self-care (01) ==
LOC: HO.LAB 09:04
PROVIDERS: PCP Internal Medicine; Visit Provider Psychiatry & Neurology Neurology
DX: G30.9 Alzheimer's disease, unspecified (principal)
CPT/HCPCS: 36415; 82607

== ENCOUNTER 2023-06-28 15:12 | Outpatient (REF) | payer MEDICARE, MEDICAID, SELFPAY ==
[2023-06-28 15:26] LABS: MANUAL DIFF FLAG NO
[2023-06-28 16:24] LABS: Basophils Percent Auto 0.6 % (0-2); Eosinophils Absolute Auto 0.1 X10*3/uL (0.0-0.4); Eosinophils Percent Auto 1.7 % (0-4); Hemoglobin 12.4 g/dl (12.0-16.0); Imm Gran Abs Auto 0.02 X10*3/uL (0.00-0.03); Imm Gran Pct Auto 0.4 % (0.0-0.4); Lymphocytes Absolute Auto 1.2 X10*3/uL (1.2-4.9); Lymphocytes Percent Auto 26.2 % (20-40); Mean Corpuscular HGB Conc 31.8 g/dl (31.0-35.0); Mean Corpuscular Volume 94.4 fL (80.0-98.0); Mean Platelet Volume 9.5 fL (9.4-12.3); Monocytes Absolute Auto 0.4 X10*3/uL (0.1-1.2); Monocytes Percent Auto 7.9 % (2-11); Neutrophils Percent Auto 63.2 % (45-73); Platelet Count 270 X10*3/uL (160-400); Red Blood Count 4.13 X10*6/uL (4.20-5.50); Red Cell Distribution Width 14.4 % (11.0-16.0); White Blood Count 4.7 X10*3/uL (4.8-10.8)
[2023-06-28 16:29] LABS: Appearance Urine Clear; Color Urine Yellow; Glucose Urine UA Negative (Negative); Leukocyte Esterase Urine Trace (Negative); Nitrite Urine Negative (Negative); PH 6.5 (5.0-9.0); UMIC TRIGGER UACC YES; Urine Blood Negative (Negative); Urine Ketones Negative (Negative); Urine Protein Negative (Neg-Trace)
[2023-06-28 16:46] LABS: Bacteria Urine None Seen (None Seen); Hyaline Casts Urine 0-2 /LPF (0-2); Squamous Epithelial Cell Urine 0-2 /HPF (0-2); WBC Urine 0-5 /HPF (0-5)
[2023-06-28 17:09] LABS: Alanine Aminotransferase 19 U/L (0-31); Albumin Level 3.9 g/dL (3.5-5.0); Alkaline Phosphatase 91 U/L (39-117); Anion Gap 10 (12-20); Aspartate Amino Transferase 19 U/L (5-31); Bilirubin Total 0.2 mg/dL (0.0-1.0); Blood Urea Nitrogen 17 mg/dL (9-16); Carbon Dioxide 29 mmol/L (22-29); Chloride 106 mmol/L (96-108); Cholesterol 167 mg/dL (<200); Estimated Glomerular Filt Rate > 60; Glucose Fasting 189 mg/dL (60-99); HDL Cholesterol 90 mg/dL (>40); LDL Cholesterol Calculated 68 mg/dL (<100); Potassium 4.5 mmol/L (3.3-5.1); Sodium 140 mmol/L (135-145); Total Protein 6.1 g/dL (6.5-8.0); Triglycerides 45 mg/dL (<150)
[2023-06-28 17:25] LABS: TSH reflex Free T4 0.97 uIU/mL (0.32-4.0); Vitamin D 25-OH Total 33.7 ng/mL (>30)
== END 2023-06-28 15:13 | disposition home or self-care (01) ==
LOC: HO.LAB 15:12
PROVIDERS: PCP Internal Medicine; Visit Provider Internal Medicine
DX: I10 Essential (primary) hypertension (principal); E78.00 Pure hypercholesterolemia, unspecified; E55.9 Vitamin D deficiency, unspecified; R30.0 Dysuria
CPT/HCPCS: 36415; 80053; 80061; 81001; 82306; 84443; 85025

== ENCOUNTER 2023-07-27 15:07 | Outpatient (AMB) | payer MEDICARE, SELFPAY ==
--- NOTE | 2023-07-27 15:09 | A.OFFPC_ITS ---
Vital Signs 07/27/23 15:10 Height 5 ft 6 in Weight 109 lb 0.2 oz BMI 17.6 BP 126/82 Blood Pressure Location Lt brachial Position Sitting Pulse 75 Pulse Source Pulse Oximeter Pulse Oximetry (%) 95 Oxygen Delivery Method Room Air Intake Visit Reasons: follow up anxiety and lipidemia Outreach Consultant Required: No Allergies morphine [Morphine] Allergy (Severe, Verified 07/27/23 15:53) VOMITING/HALLUCINATIONS codeine [Codeine] Allergy (Intermediate, Verified 07/27/23 15:53) VOMITING/HALLUCINATIONS, nause/extended abdomen latex Allergy (Unknown, Verified 07/27/23 15:53) Unknown atorvastatin Adverse Reaction (Intermediate, Verified 07/27/23 15:53) fever, chills, abd pain, numbness capsaicin [CAPSAICIN] Adverse Reaction (Intermediate, Verified 07/27/23 15:53) BURNING bacitracin Allergy (Intermediate, Uncoded 07/27/23 15:53) redness and itching adhesives Allergy (Mild, Uncoded 07/27/23 15:53) rash Medication List - Last Reconciled 07/27/23 by Espinoza Santiago MD albuterol sulfate 90 mcg/actuation 2 puffs PO Q6H PRN aspirin 81 mg PO DAILY clonazepam 1 mg PO BEDTIME clonazepam 0.5 mg PO BID clopidogrel 75 mg PO DAILY duloxetine 30 mg PO BID Flovent HFA 110 mcg/actuation (fluticasone propionate) 1 puff PO BID NS fluticasone propionate 50 mcg/actuation 2 sprays intranasal DAILY PRN inhalational spacing device (Aerochamber MV spacer) Use with respiratory inhaler as directed lamotrigine 200 mg PO DAILY memantine 5 mg PO BID sertraline 50 mg PO DAILY 90 days simvastatin 20 mg PO BEDTIME topiramate 25 mg PO BEDTIME trazodone 100 mg PO DAILY Tobacco use date assessed: 07/27/23 Fall risk assessment: No Falls in past year Last assessed Fall Risk: 07/27/23 Dental Screening Dental Screen Date: 07/27/23 Did you have a dental visit in the last 12 months?: No Did you have a dental problem in the last 6 months where you did not have access to dental care?: No HPI follow up anxiety and lipidemia HPI Details Patient comes in today for her follow up visit States that she currently feels okay Was seen by neurology for her memory impairment a few weeks ago and was started on Memantine for Alzheimer's dementia, which patient and her daughter both feel is helping She denies any headaches or dizziness Denies any sore throat or recent cough/cold symptoms but has noticed some prominent 'bumps' over the back of her tongue for a while now but states that she just keeps forgetting to mention it to us States that the lesions ('bumps') do not hurt at all and other than seeing them, she would not even know that they are there States that these have not gotten any bigger or changed in appearance lately Patient denies any trouble swallowing Denies any chest pains, no SOB No nausea/vomiting, no abdominal pain No change in bowel habits noted She continues to follow up with pain management for her chronic neck pain and states that her neck pains have been much better controlled since she had SCS implantation last year She is also scheduled for her repeat colonoscopy at the end of the month Patient had her follow up labs done last month - to discuss her results [facility] Medical History (Updated 07/28/23 @ 05:36 by Espinoza Santiago MD) Alzheimer's dementia Anxiety Insomnia Osteoporosis Anemia Gait abnormality Partial symptomatic epilepsy with complex partial seizures, not intractable, without status epilepticus Asthma Pure hypercholesterolemia Peripheral arterial disease Unsteady gait Neuropathy Benign essential hypertension Alcoholism in remission Exertional dyspnea Surgical History Hx of foot surgery Hx of nasal septoplasty History of esophagogastroduodenoscopy (EGD) H/O colonoscopy History of angioplasty History of partial gastrectomy History of cholecystectomy History of cataract surgery History of hysterectomy History of tubal ligation S/P excision of neuroma Family History Father CVD (cardiovascular disease) Heart disease Hypertension Stroke Mother CVD (cardiovascular disease) Heart disease Asthma Maternal Grandmother No problems noted. Maternal Grandfather No problems noted. Paternal Grandmother No problems noted. Paternal Grandfather No problems noted. Maternal Aunt Tongue cancer Social History Household Members: None Housing: Assisted Living Facility Are you a primary farm or ranch animal caretaker to a significant other at home: No Do you presently have visiting nurse or other home services: No Alcohol intake: former Comment: NA Patient Tobacco Use Status: Former Tobacco user Quit Date: 1987 e-Cigarette/Vaping Use: Never Used Second Hand Smoke Exposure: Yes Advance Directives Date on File: 06/12/21 service: No Current occupational status: retired Cognitive needs: No Hearing needs: No Vision needs: Yes Questionnaire PHQ-9 Over the last 2 weeks, how often have you been bothered by any of the following problems? 1. Little interest or pleasure in doing things: not at all 2. Feeling down, depressed, or hopeless: not at all 3. Trouble falling or staying asleep, or sleeping too much: not at all 4. Feeling tired or having little energy: not at all 5. Poor appetite or overeating: not at all 6. Feeling bad about yourself - or that you are a failure or have let yourself or your family down: not at all 7. Trouble concentrating on things, such as reading the newspaper or watching television: not at all 8. Moving or speaking so slowly that other people could have noticed. Or the opposite - being so fidgety or restless that you have been moving around a lot more than usual: not at all 9. Thoughts that you would be better off or of hurting yourself in some way: not at all Total score: 0 Depression Screening Interpretation: Positive Depression Screening Follow-up: Existing condition and In treatment Depression Screening Done: Yes 68396 - PHQ-9 Billing: Yes Source: Developed by Drs. Umesh Petersen, Eden Gonsalez, Adán Suazo and colleagues, with an educational mynor from [employer]. Thrive Questionnaire Date Thrive assessed: 07/27/23 I am a: Patient What is your living situation today?: I have a steady place to live Within the past 12 months, did the food you bought not last and you didn't have the money to get more?: Never true Within the past 12 months, did you worry whether your food would run out before you got money to buy more?: Never true Do you have trouble paying for medicines?: No Do you have trouble getting transportation to medical appointments?: No Do you have trouble paying your heating and electricity bill?: No Do you have trouble taking care of your child, family member or friend?: No Do you have trouble with day-to-day activities such as bathing, preparing meals, shopping, managing finances, etc.?: No Are you currently unemployed and looking for a job?: No Are you interested in more education?: No Please select the resources that you would like help with: None Currently or been in a relationship where the following occur: no concerns reported THRIVE Score: 0 AUDIT C Alcohol Use Questionnaire (AUDIT-C) 1. How often do you have a drink containing alcohol?: Never 3. How often do you have six or more drinks on one occasion?: Never Total Score: 0 Score Reviewed/Action Taken: Yes CHANTELL-7 AMB Questionnaire CHANTELL-7 Date CHANTELL - 7 assessed: 07/27/23 (patient states existing condition ) Feeling nervous, anxious, or on edge: 0 = Not at all Not being able to stop or control worryin = Not at all Worrying too much about different things: 0 = Not at all Trouble relaxin = Not at all Being so restless that it is hard to sit still: 0 = Not at all Becoming easily annoyed or irritable: 0 = Not at all Feeling afraid as if something awful might happen: 0 = Not at all Total CHANTELL-7 score (0-4 normal; 5-9 mild; 10-14 moderate; 15-21 severe): 0 Source: Developed by Drs. Umesh Petersen, Eden Gonsalez, Adán Suazo and colleagues, with an educational mynor from [employer]. CHANTELL-7 Assessment Billing CHANTELL-7 Assessment Tool: CHANTELL-7 Assessment 17507 Review of Systems Const Denies chills, Reports fatigue, Denies fever(s) and Denies headache(s) ENT Details: reports (+) non-tender 'bumps on the back of her tongue Denies dysphagia, Denies dizziness, Denies otalgia, Denies headache(s), Reports neck pain (chronic - better controlled since SCS implant last year), Denies odynophagia and Denies sore throat Card Denies chest pain, Denies palpitations and Denies dyspnea Resp Denies cough and Denies dyspnea GI Denies abdominal pain, Denies constipation, Denies dysphagia, Denies heartburn, Denies diarrhea, Denies nausea, Denies odynophagia and Denies vomiting Denies difficulty voiding, Denies nocturia, Denies dysuria and Denies urinary urgency Musc Details: (+)recurrent pain over both lower legs Reports abnormal gait (unsteady), Reports arthralgias (right shoulder, on and off - states that has also improved a lot lately) and Reports neck pain (chronic - better controlled since SCS implant last year) Skin/Breast Denies rash Neuro Reports abnormal gait (unsteady), Denies behavioral changes, Denies dizziness, Denies headache(s) and Reports memory loss Psych Reports anxiety, Denies behavioral changes and Reports memory loss Endo Reports fatigue and Denies palpitations Physical exam (Primary Care) Vital Signs: Last Vital Signs Pulse 75 07/27/23 15:10 BP 126/82 07/27/23 15:10 Pulse Ox 95 07/27/23 15:10 Oxygen Delivery Method Room Air 07/27/23 15:10 BMI result Body Mass Index 17.6 Tobacco/Smoking Status: Tobacco use Status Tobacco use date assessed 07/27/23 07/27/23 15:10 Patient Tobacco Use Status Former Tobacco user 07/27/23 15:10 e-Cigarette/Vaping Use Never Used 07/27/23 15:10 PHQ-9: PHQ-9 Score PHQ-9: Total score 0 07/27/23 16:04 Depression Screening Interpretation: Positive Depression Screening Follow-up: Existing condition and In treatment Thrive Assessment: Date of Thrive Assessment Date Thrive assessed 07/27/23 07/27/23 15:10 Currently or been in a relationship where the following occur: no concerns reported Const General: no acute distress and alert HENMT Ears: TM's normal bilaterally and EAC's normal Mouth: tongue normal (but (+) few hypertrophied papillae towards the back of the tongue) Throat: Yes posterior oropharynx normal and Yes tonsils normal (no TP congestion) Neck Neck: Yes no lymphadenopathy and Yes tender (over the cervical spine and paraspinal areas bilaterally, mild) Resp Auscultation: clear to auscultation bilaterally, no rales and no wheezes Cardio Rate: regular rate Rhythm: regular rhythm Heart sounds: no murmurs GI Palpation (GI): Soft to palpation and nontender Auscultation: normal bowel sounds Back/Spine/Pelvis Cervical Spine: cervical muscular tenderness and Cervical spine tenderness (mild) Thoracic/Lumbar Spine: No thoracic spinal tenderness Skin Rashes: no rashes Neuro General: no focal motor deficits Extrem General: Yes no clubbing, cyanosis or edema Results AMB Hemoglobin A1c AMB Hemoglobin A1c 5.1 % Last Edit by PATT Marks on 07/27/23 16:06 Results Reviewed Results Reviewed: Laboratory Last Values Hgb A1c (Clinic) 5.1 % (4.0-6.0) 07/27/23 16:04 Laboratory Tests 06/15/23 06/28/23 06/28/23 09:31 15:24 Unknown WBC 4.7 L Hgb 12.4 Hct 39.0 Plt Count 270 D Sodium 140 Potassium 4.5 Creatinine 0.81 Estimated GFR > 60 Fasting Glucose 189 H Calcium 9.0 AST 19 ALT 19 Triglycerides 45 Cholesterol 167 LDL Cholesterol, Calc 68 HDL Cholesterol 90 Vitamin B12 523 25-OH Vitamin D Total 33.7 TSH 0.97 Ur Specific [place] 1.020 Urine Protein Negative Urine Glucose (UA) Negative Urine Blood Negative Urine Nitrite Negative Ur Leukocyte Esterase Trace H Assessment and Plan Assessment & Plan (1) Degenerative disc disease, cervical: Code(s): M50.30 - Other cervical disc degeneration, unspecified cervical region Plan: S/P spinal cord implantation by pain management last year on 01/29/2023 Patient states that her neck pain has improved significantly since and she often has no perceived pain at all over her neck lately and she is very happy with the outcome of her interventional procedure Follow up with pain management as scheduled (2) Migraine: Code(s): G43.909 - Migraine, unspecified, not intractable, without status migrainosus Qualifiers: Intractability: not intractable Migraine type: unspecified Status migrainosus presence: without status migrainosus Qualified Code(s): G43.909 - Migraine, unspecified, not intractable, without status migrainosus Plan: Reinforced avoidance of potential migraine triggers Headaches were much better controlled on prophylactic Tx but states that she has hardly had any migraine headache episode since her neck pain have been much better controlled so it is likely that her previous neck pains were also a trigger for her migraines Continue Topiramate 25 mg Q HS (3) Benign essential hypertension: Code(s): I10 - Essential (primary) hypertension Plan: Reinforced low sodium diet - goal is systolic BP of at least 130 to 140 mm or less Used to take Losartan 50 mg QD and Clonidine 0.1 mg TID for her blood pressure but does not appear to need any Rx for her BP lately She is reminded to continue monitoring her blood pressure regularly (4) Pure hypercholesterolemia: Code(s): E78.00 - Pure hypercholesterolemia, unspecified Plan: Results of her labs done last month reviewed and discussed with patient Reinforced low cholesterol diet Continue Simvastatin 20 mg QD Will recheck her labs and fasting lipids in 4 months for follow up (5) Anemia: Code(s): D64.9 - Anemia, unspecified Qualifiers: Anemia type: unspecified type Qualified Code(s): D64.9 - Anemia, unspecified Plan: Corrected; H/H was normal on her recent labs S/P parenteral iron therapy last year in June 2021; she has taken iron tablets in the past but could not tolerate Rx due to severe constipation Will continue to monitor her CBC regularly Follow up with hematology as scheduled (6) Impaired fasting glucose: Code(s): R73.01 - Impaired fasting glucose Plan: Patient's FBS was noted to be high on her labs done last month In-office HgbA1c done today is normal at 5.2% Reinforced low calorie/low carb diet (7) Neuropathy: Comment: NCV done in 2019 - sees Dr. Robbins Code(s): G62.9 - Polyneuropathy, unspecified Plan: NCV done in 2019 revealed (+) sensory, motor and axonal peripheral neuropathy Follow up with neurology as scheduled Was on Gabapentin 100 mg once a day at bedtime in the past but currently does not appear to be on anything for neuropathy (8) Alzheimer's dementia: Code(s): G30.9 - Alzheimer's disease, unspecified; F02.80 - Dementia in other diseases classified elsewhere, unspecified severity, without behavioral disturbance, psychotic disturbance, mood disturbance, and anxiety Qualifiers: Alzheimer's disease onset: unspecified onset Dementia severity: mild Dementia behavioral or psychological symptom: without behavioral, psychotic, or mood disturbance or anxiety Qualified Code(s): G30.9 - Alzheimer's disease, unspecified; F02.A0 - Dementia in other diseases classified elsewhere, mild, without behavioral disturbance, psychotic disturbance, mood disturbance, and anxiety Plan: Patient was diagnosed by neurology a few weeks ago and started on Memantine 5 mg BID Follow up with neurology as scheduled (9) Peripheral arterial disease: Code(s): I73.9 - Peripheral vascular disease, unspecified Plan: Symptoms have improved significantly following balloon angioplasty of bilateral lower extremities a couple of years ago Continue Clopidogrel 75 mg once a day Follow-up with vascular surgery (Dr. Marquez) as scheduled (10) Hypertrophy of tongue papillae: Code(s): K14.3 - Hypertrophy of tongue papillae Plan: Patient is advised/reassured that the bumps she has towards the back of her tongue are not necessarily abnormal and they can often become more prominent with allergies or other situations In her case, as the bumps are asymptomatic (no pain, erythema or irritation), we would just recommend observation for now Patient is advised to call back if these start to bother her or if they are getting bigger/worse (11) Asthma: Code(s): J45.909 - Unspecified asthma, uncomplicated Qualifiers: Asthma complication type: uncomplicated Asthma persistence: persistent Asthma severity: moderate Qualified Code(s): J45.40 - Moderate persistent asthma, uncomplicated Plan: Stable/controlled - continue Flovent HFA 110 mcg 1 puff BID and Ventolin HFA 2 puffs 4 times a day as needed (12) Partial symptomatic epilepsy with complex partial seizures, not intractable, without status epilepticus: Code(s): G40.209 - Localization-related (focal) (partial) symptomatic epilepsy and epileptic syndromes with complex partial seizures, not intractable, without status epilepticus Plan: Stable with no recent recurrence - EEG, head CT and carotid doppler done previously all came back normal Continue Lamotrigine 200 mg QD Follow-up with Neurology as scheduled or as needed (13) Osteoporosis: Code(s): M81.0 - Age-related osteoporosis without current pathological fracture Qualifiers: Osteoporosis type: age-related Presence of current pathological fracture: without current pathological fracture Qualified Code(s): M81.0 - Age- related osteoporosis without current pathological fracture Plan: Repeat BMD done on 07/17/2021 revealed (+) osteoporosis - BMD in the AP spine has declined 10.8% from previous and BMD in the left femur has also declined from previous but only by -1.3% Fall precautions reinforced Consider referral to endocrinology for further evaluation and management, given her age, but patient would like to hold off for now Offered also to start her on oral bisphosphonates but after hearing about their potential side effects, patient declined Rx (14) Insomnia: Code(s): G47.00 - Insomnia, unspecified Qualifiers: Insomnia type: unspecified Qualified Code(s): G47.00 - Insomnia, unspecified Plan: Sleep hygiene reinforced Continue Trazodone 100 mg Q HS PRN (15) Anxiety: Code(s): F41.9 - Anxiety disorder, unspecified Plan: Continue Sertraline 50 mg QD - Rx has been helping her a lot with her anxiety Plan Follow up in 4 months Orders: Orders Complete Blood Count Auto Diff 4 Months D64.9 - Anemia, unspecified Lipid Panel 4 Months E78.00 - Pure hypercholesterolemia, unspecified UA CC w/rflx Micro + Cult 4 Months R30.0 - Dysuria Vitamin D 25-OH Total 4 Months E55.9 - Vitamin D deficiency, unspecified AMB Hemoglobin A1c 07/27/23 Z13.9 - Encounter for screening, unspecified Comprehensive Nora. Panel Fast 4 Months E78.00 - Pure hypercholesterolemia, unspecified TSH reflex Free T4 4 Months E78.00 - Pure hypercholesterolemia, unspecified Vitamin B12 and Folate 4 Months E53.8 - Deficiency of other specified B group vitamins Coding Level of Care Code Est Pt Level 4 (86930) Diagnoses Degenerative disc disease, cervical M50.30 Migraine without status migrainosus, not intractable, unspecified migraine type G43.909 Intractability: not intractable Migraine type: unspecified Status migrainosus presence: without status migrainosus Benign essential hypertension I10 Pure hypercholesterolemia E78.00 Anemia, unspecified type D64.9 Anemia type: unspecified type Impaired fasting glucose R73.01 Neuropathy G62.9 Mild Alzheimer's dementia without behavioral disturbance, psychotic disturbance, mood disturbance, or anxiety, unspecified timing of dementia onset G30.9; F02.A0 Alzheimer's disease onset: unspecified onset Dementia severity: mild Dementia behavioral or psychological symptom: without behavioral, psychotic, or mood disturbance or anxiety Peripheral arterial disease I73.9 Hypertrophy of tongue papillae K14.3 Moderate persistent asthma without complication J45.40 Asthma complication type: uncomplicated Asthma persistence: persistent Asthma severity: moderate Partial symptomatic epilepsy with complex partial seizures, not intractable, without status epilepticus G40.209 Age-related osteoporosis without current pathological fracture M81.0 Osteoporosis type: age-related Presence of current pathological fracture: without current pathological fracture Insomnia, unspecified type G47.00 Insomnia type: unspecified Anxiety F41.9 Additional Codes CHANTELL-7 Assessment Billing - CHANTELL-7 Assessment Tool: CHANTELL-7 Assessment 38300 ([id number])
[2023-07-27 15:10] VITALS: BP 126/82; PULSE 75; O2SAT 95; BMI 17.6
== END 2023-07-27 16:08 | disposition home or self-care (01) ==
PROVIDERS: PCP Internal Medicine; Visit Provider Internal Medicine
DX: R73.9 Hyperglycemia, unspecified (principal)
CPT/HCPCS: 83036; 99214

== ENCOUNTER 2023-08-18 07:16 | Day surgery (SDC) | payer MEDICARE, SELFPAY ==
[2023-08-13 13:28] VITALS: BMI 18.6
[2023-08-18 07:32] VITALS: BMI 17.6
[2023-08-18 07:52] VITALS: BP 135/73; PULSE 88; RESP 16; TEMP 37.2; O2SAT 95
--- NOTE | 2023-08-18 07:54 | P.CONAN_ITS ---
[facility] Active Problems Active Problems: All Active Problems (Updated 07/28/23 @ 05:36 by Espinoza Santiago MD) Hypertrophy of tongue papillae (Acute) Impaired fasting glucose (Acute) Cognitive impairment (Acute) Chronic pain syndrome (Acute) Spondylosis of thoracic spine (Acute) Eye discomfort (Acute) Vision problems (Acute) Eye abnormalities (Acute) Cervical spondylosis (Acute) Cervical radiculitis (Acute) Muscle spasms of neck (Acute) Degenerative disc disease, cervical (Acute) Spondylosis of cervical region without myelopathy or radiculopathy (Acute) Cervical strain (Acute) Neck pain (Acute) Rotator cuff tendonitis (Acute) Biceps tendonitis on right (Acute) Right shoulder pain (Acute) Thoracic back pain (Acute) Osteopenia (Acute) Neck muscle strain (Acute) Migraine (Acute) Encounter for Medicare annual wellness exam (Acute) Lower extremity pain, bilateral (Acute) Syncopal episodes (Acute) Balance disorder (Acute) Hospital discharge follow-up (Acute) Alzheimer's dementia (Acute) Anxiety (Acute) Insomnia (Acute) Osteoporosis (Acute) Anemia (Chronic) Gait abnormality (Acute) Partial symptomatic epilepsy with complex partial seizures, not intractable, without status epilepticus (Acute) Asthma (Acute) Pure hypercholesterolemia (Acute) Peripheral arterial disease (Acute) Unsteady gait (Acute) Neuropathy (Acute) Benign essential hypertension (Acute) 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) Exertional dyspnea (Acute) Past Medical History Medical History (Updated 07/28/23 @ 05:36 by Espinoza Santiago MD) Alzheimer's dementia Anxiety Insomnia Osteoporosis Anemia Gait abnormality Partial symptomatic epilepsy with complex partial seizures, not intractable, without status epilepticus Asthma Pure hypercholesterolemia Peripheral arterial disease Unsteady gait Neuropathy Benign essential hypertension Alcoholism in remission Exertional dyspnea Family History Family History Father CVD (cardiovascular disease) Heart disease Hypertension Stroke Mother CVD (cardiovascular disease) Heart disease Asthma Maternal Grandmother No problems noted. Maternal Grandfather No problems noted. Paternal Grandmother No problems noted. Paternal Grandfather No problems noted. Maternal Aunt Tongue cancer Family history of problems with anesthesia: No Surgical History Surgical History (Updated 08/13/23 @ 13:29 by Lisa Casanova RN) Status post insertion of nerve stimulator Hx of foot surgery Hx of nasal septoplasty History of esophagogastroduodenoscopy (EGD) H/O colonoscopy History of angioplasty History of partial gastrectomy History of cholecystectomy History of cataract surgery History of hysterectomy History of tubal ligation S/P excision of neuroma History of Problems with Anesthesia: No Social History Social History Household Members: None Housing: Assisted Living Facility Are you a primary resident care manager rn to a significant other at home: No Do you presently have visiting nurse or other home services: No Alcohol intake: former Comment: NA Patient Tobacco Use Status: Former Tobacco user Quit Date: 1987 e-Cigarette/Vaping Use: Never Used Second Hand Smoke Exposure: No Use of substances other than those prescribed or required for medical reasons: No Are you DNR?: No Advance Directives: No Advance Directives Information Provided: Yes Advance Directives on File: No Advance Directives Date on File: 06/12/21 service: No Current occupational status: retired Cognitive needs: No Hearing needs: No Vision needs: Yes Meds Allergies Allergy/AdvReac Type Severity Reaction Status Date / Time morphine [Morphine] Allergy Severe VOMITING/LONGORIA Verified 07/27/23 15:53 LLUCINATION S codeine [Codeine] Allergy Intermediate VOMITING/HALLUCINATIONS, Verified 07/27/23 15:53 nause/extended abdomen latex Allergy Unknown Unknown Verified 07/27/23 15:53 atorvastatin AdvReac Intermediate fever, Verified 07/27/23 15:53 chills, abd pain, numbness capsaicin [CAPSAICIN] AdvReac Intermediate BURNING Verified 07/27/23 15:53 bacitracin Allergy Intermediate redness Uncoded 07/27/23 15:53 and itching adhesives Allergy Mild rash Uncoded 07/27/23 15:53 Active Medications: Current Medications Sodium Biphosphate/Sodium Phosphate (Sodium Phosphate,Williamson-Dibasic 133 Ml Enema) 133 ml OH ONCE PRN PRN Reason: Poor Colonoscopy Prep Results Home Medications ?Medication ?Instructions ?Recorded ?Confirmed ?Last Taken ?Type aspirin 81 mg tablet,delayed 81 mg PO DAILY 03/11/20 08/13/23 01/21/23 History release clonazepam 0.5 mg tablet 0.5 mg PO BID 03/11/20 08/13/23 Unknown History clonazepam 1 mg tablet 1 mg PO BEDTIME 03/11/20 08/13/23 Unknown History lamotrigine 200 mg tablet 200 mg PO DAILY 03/11/20 08/13/23 01/29/23 History trazodone 100 mg tablet 100 mg PO DAILY 03/11/20 08/13/23 Unknown History memantine 5 mg tablet 5 mg PO BID 07/27/23 08/13/23 Unknown History Exam Height,Weight and Vital Signs: Height 5 ft 6 in Weight 49.555 kg Airway Mallampati Class: II TM Dist: >3cm Neck ROM: Full Denture: Upper and Lower Assessment and Plan Assessment Anesthesia Assessment: Anesthesia Plan Discussed and Chart Reviewed Final Anesthetic Review Family History of Problems with Anesthesia: No History of Problems with Anesthesia: No NPO: Yes ASA Class: III Final Preanesthetic Review: No Changes in Pt Med Stat, Meds/Allgs Chart Reviewed, Consent Obtained/Reviewed and Anes Risks/Benef Reviewed Patient Risk: Intermediate Procedure Risk: Low Anesthetic Plan Anesthetic Plan: TIVA Disposition: Standard PACU
[2023-08-18] MEDS: Lactated Ringers 1,000 ML 80 ML IVCONT (08:00)
[2023-08-18 09:37] VITALS: BP 98/48; PULSE 65; RESP 16; TEMP 36.1; O2SAT 98
--- NOTE | 2023-08-18 09:38 | PM.OP ---
Brief Operative Note Date of Service: 08/18/23 Pre-op diagnosis: Screening Post-op diagnosis: other (Polyps) Procedure: Colonoscopy to the cecum with biopsies, hot snare polypectomies, and marking with Ink Surgeon: Umesh Ellsworth MD Anesthesia: MAC Was an Fitness Supervisor used for this Procedure?: No Estimated blood loss (mL): 2.0 Pathology: other (A. Proximal ascending colon polyp B. Transverse colon polyps C. Larger transverse colon polyp) Condition: stable Disposition: PACU
[2023-08-18 09:50] VITALS: BP 134/56; PULSE 67; RESP 16; TEMP 36.1; O2SAT 95
--- NOTE | 2023-08-19 03:00 | OP_ITS ---
DATE OF SERVICE: 08/18/2023 SURGEON: Umesh Ellsworth MD INDICATIONS: The patient presents for followup of personal history of tubular adenoma of the colon. Full consent has been obtained from her for this, including risks of bleeding and perforation. PREOPERATIVE DIAGNOSIS: Personal history of tubular adenoma of the colon. POSTOPERATIVE DIAGNOSIS: PROCEDURE PERFORMED: Colonoscopy to the cecum with hot snare polypectomy x 2, biopsy and removal of polyp, biopsies, and marking with submucosal ink. ESTIMATED BLOOD LOSS: COMPLICATIONS: ANESTHESIA: Monitored anesthesia care. ASSISTANTS: SPECIMENS: POSTOPERATIVE DIAGNOSES: Personal history of tubular adenoma of the colon, colon polyps, diverticulosis, and internal hemorrhoids. DESCRIPTION OF PROCEDURE: The patient was placed in the left lateral decubitus position. The digital rectal exam revealed no abnormalities. The Olympus video pediatric colonoscope was entered into the rectum and advanced to the cecum with the assistance of abdominal wall pressure. Once in the cecum, I did identify normal-appearing cecal pouch with appendiceal orifice and a normal-appearing ileocecal valve. There was transillumination of light deep in the right lower quadrant. The entire cecum was well visualized and appeared normal. The scope was then slowly withdrawn assessing all mucosal surfaces carefully. Preparation of various parts of the colon was somewhat limited due to a fair amount of liquid stool which was irrigated as best as possible but not completely. There were also areas of a lot of spasm. In the proximal ascending colon on a fold was an approximately 6 mm area of grossly adenomatous tissue that was removed in piecemeal fashion with a cold biopsy forceps. I did not visualize any residual polyp tissue nor significant bleeding. In the region of the proximal transverse colon were 2 polyps. One was approximately 8 to 10 mm in diameter and removed by hot snare polypectomy. The other polyp was approximately 12 mm and fairly flat. This was removed in piecemeal fashion by hot snare polypectomy. All of these pieces were recovered by suction and placed in the same container. All the polypectomy sites appeared clean, without any sign of residual polyp nor bleeding. In the same area after irrigating and suctioning as best as possible, and allowing for some of the spasm to resolve, I did visualize 2 relatively flat but raised and relatively large polyps. One polyp on a fold encompassed approximately 1/3 of the circumference of the colon. The other polyp was smaller but also flat. Multiple biopsies were obtained from the larger polyp. Due to the limited prep, colonic spasm, and appearance of the polyps, I did not attempt a polypectomy at this time, particularly since she has to go back on blood thinners at some point. Given their gross appearance, which might need surgical resection or at least followup colonoscopy with resection, I did place submucosal ink vitale just proximal and distal to them. I did not visualize any other polyps, colitis, nor angiodysplasia. There was a mild amount of sigmoid diverticulosis. In the rectum, the scope was retroflexed visualizing some internal hemorrhoids, but no other pathology. The scope was straightened and withdrawn from the patient. She tolerated the procedure well and was returned to the recovery area in stable condition. IMPRESSION: 1. Colon polyps. 2. Diverticulosis. 3. Internal hemorrhoids. PLAN: The results of the pathology will be checked. In regard to the larger polyps, we shall make a determination as to whether we shall re-attempt a colonoscopy to remove them or if she will need surgical resection depending upon the pathology results. She has been advised to resume her Plavix and aspirin on August 22. She was advised to call if she notices any significant bleeding. I will be in touch with her and her daughter next week regarding the results and further plans. This has all been discussed with the patient's daughter in detail. MD LADY Pablo/ROBERTA / [phone] MTDMichelle
== END 2023-08-18 11:01 | disposition home or self-care (01) ==
PROVIDERS: PCP Internal Medicine; Visit Provider Internal Medicine
PROC: 0DJD8ZZ Inspection of Lower Intestinal Tract, Via Natural or Artificial Opening Endoscopic (ICD-10-PCS; CPT 45378; principal; 2023-08-18 08:30)
DX: Z12.11 Encounter for screening for malignant neoplasm of colon (principal); D12.2 Benign neoplasm of ascending colon; D12.3 Benign neoplasm of transverse colon; K57.30 Diverticulosis of large intestine without perforation or abscess without bleeding; K64.0 First degree hemorrhoids; Z86.010 Personal history of colon polyps
CPT/HCPCS: 45380; 45385; 45381; 88305; J2704

== ENCOUNTER 2023-12-31 06:13 | Day surgery (SDC) | payer MEDICARE, SELFPAY ==
[2023-12-29 11:54] VITALS: BMI 18.6
[2023-12-31 06:32] VITALS: BMI 17.4
[2023-12-31 06:47] VITALS: BP 121/66; PULSE 88; RESP 16; TEMP 36.7; O2SAT 97
[2023-12-31] MEDS: Lactated Ringers 1,000 ML 50 ML IVCONT (07:04)
--- NOTE | 2023-12-31 08:13 | HO.ANESPROP2 ---
HPI - Anesthesia Eval Consult details Narrative: for [facility] Active Problems Active Problems: All Active Problems Hypertrophy of tongue papillae (Acute) Impaired fasting glucose (Acute) Cognitive impairment (Acute) Chronic pain syndrome (Acute) Spondylosis of thoracic spine (Acute) Eye discomfort (Acute) Vision problems (Acute) Eye abnormalities (Acute) Cervical spondylosis (Acute) Cervical radiculitis (Acute) Muscle spasms of neck (Acute) Degenerative disc disease, cervical (Acute) Spondylosis of cervical region without myelopathy or radiculopathy (Acute) Cervical strain (Acute) Neck pain (Acute) Rotator cuff tendonitis (Acute) Biceps tendonitis on right (Acute) Right shoulder pain (Acute) Thoracic back pain (Acute) Osteopenia (Acute) Neck muscle strain (Acute) Migraine (Acute) Encounter for Medicare annual wellness exam (Acute) Lower extremity pain, bilateral (Acute) Syncopal episodes (Acute) Balance disorder (Acute) Hospital discharge follow-up (Acute) Alzheimer's dementia (Acute) Anxiety (Acute) Insomnia (Acute) Osteoporosis (Acute) Anemia (Chronic) Gait abnormality (Acute) Partial symptomatic epilepsy with complex partial seizures, not intractable, without status epilepticus (Acute) Asthma (Acute) Pure hypercholesterolemia (Acute) Peripheral arterial disease (Acute) Unsteady gait (Acute) Neuropathy (Acute) Benign essential hypertension (Acute) 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) Exertional dyspnea (Acute) Past Medical History Medical History TIA (transient ischemic attack) Seizure Alzheimer's dementia Anxiety Insomnia Osteoporosis Anemia Gait abnormality Partial symptomatic epilepsy with complex partial seizures, not intractable, without status epilepticus Asthma Pure hypercholesterolemia Peripheral arterial disease Unsteady gait Neuropathy Benign essential hypertension Alcoholism in remission Exertional dyspnea Family History Family History Father CVD (cardiovascular disease) Heart disease Hypertension Stroke Mother CVD (cardiovascular disease) Heart disease Asthma Maternal Grandmother No problems noted. Maternal Grandfather No problems noted. Paternal Grandmother No problems noted. Paternal Grandfather No problems noted. Maternal Aunt Tongue cancer Family history of problems with anesthesia: No Surgical History Surgical History Status post insertion of nerve stimulator Hx of foot surgery Hx of nasal septoplasty History of esophagogastroduodenoscopy (EGD) H/O colonoscopy History of angioplasty History of partial gastrectomy History of cholecystectomy History of cataract surgery History of hysterectomy History of tubal ligation S/P excision of neuroma History of Problems with Anesthesia: No Social History Social History Household Members: None Housing: Assisted Living Facility Are you a primary respiratory care faculty to a significant other at home: No Do you presently have visiting nurse or other home services: No Alcohol intake: former Comment: NA Patient Tobacco Use Status: Former Tobacco user e-Cigarette/Vaping Use: Never Used Second Hand Smoke Exposure: No Use of substances other than those prescribed or required for medical reasons: No Are you DNR?: No Advance Directives: No Advance Directives Information Provided: Yes Advance Directives on File: Yes Advance Directives Date on File: 06/12/21 Recently lost weight without trying: Yes How much weight loss: 24-33 pounds Nutrition Risks: No Nutritional Risk service: No Current occupational status: retired Cognitive needs: No Hearing needs: No Vision needs: Yes Meds Allergies Allergy/AdvReac Type Severity Reaction Status Date / Time morphine [Morphine] Allergy Severe VOMITING/LONGORIA Verified 07/27/23 15:53 LLUCINATION S codeine [Codeine] Allergy Intermediate VOMITING/HALLUCINATIONS, Verified 07/27/23 15:53 nause/extended abdomen latex Allergy Unknown Unknown Verified 07/27/23 15:53 atorvastatin AdvReac Intermediate fever, Verified 07/27/23 15:53 chills, abd pain, numbness capsaicin [CAPSAICIN] AdvReac Intermediate BURNING Verified 07/27/23 15:53 bacitracin Allergy Intermediate redness Uncoded 07/27/23 15:53 and itching adhesives Allergy Mild rash Uncoded 07/27/23 15:53 Active Medications: Current Medications Lactated Ringer's (Lr) 1,000 mls @ 50 mls/hr IVCONT .Q20H SYLVAIN Last Admin: 12/31/23 07:04 Dose: 50 mls/hr Sodium Biphosphate/Sodium Phosphate (Sodium Phosphate,[place]-Dibasic 133 Ml Enema) 133 ml UT ONCE PRN PRN Reason: Poor Colonoscopy Prep Results Home Medications ?Medication ?Instructions ?Recorded ?Confirmed ?Last Taken ?Type Flovent 12/31/23 12/31/23 History Exam Height,Weight and Vital Signs: Height 5 ft 6 in Weight 48.988 kg Last Vital Signs Temp 98.1 F 12/31/23 06:47 Pulse 88 12/31/23 06:47 Resp 16 12/31/23 06:47 BP 121/66 12/31/23 06:47 Pulse Ox 97 12/31/23 06:47 O2 Del Method Room Air 12/31/23 06:47 Airway Mallampati Class: II TM Dist: >3cm Heart: rrr Lungs: cta Assessment and Plan Assessment Anesthesia Assessment: Anesthesia Plan Discussed Final Anesthetic Review Family History of Problems with Anesthesia: No History of Problems with Anesthesia: No NPO: Yes ASA Class: III Final Preanesthetic Review: No Changes in Pt Med Stat, Meds/Allgs Chart Reviewed, Consent Obtained/Reviewed and Anes Risks/Benef Reviewed Patient Risk: Intermediate Procedure Risk: Low Anesthetic Plan Anesthetic Plan: MAC: Disposition: Standard PACU
[2023-12-31 08:43] VITALS: BP 89/40; PULSE 70; RESP 16; TEMP 36.2; O2SAT 99
--- NOTE | 2023-12-31 08:57 | PM.OP ---
Brief Operative Note Date of Service: 12/31/23 Pre-op diagnosis: History of polyps Post-op diagnosis: other (Colon polyps) Procedure: Colonoscopy to the cecum with hot snare polypectomy x 2, biopsy and marking with ink of the site of the polyp at 70cm/Transverse colon, Resolution clips x 1 placed on the proximal ascending colon polypectomy site and hepatic flexure polypectomy site, and Resolution clips x 2 placed near the Transverse colon/70cm polyp site Surgeon: Umesh Ellsworth MD Anesthesia: MAC Was an Counselor/Art Therapist used for this Procedure?: No Estimated blood loss (mL): 2.0 Pathology: other (A. Biopsies of polyp at 70cm/Transverse colon B. Proximal ascending colon polyp C. Hepatic flexure polyp) Condition: stable Disposition: PACU
[2023-12-31 09:11] VITALS: BP 112/52; PULSE 71; RESP 17; TEMP 36.1; O2SAT 96
--- NOTE | 2023-12-31 09:52 | OP_ITS ---
DATE OF SERVICE: 12/31/2023 SURGEON: Umesh Ellsworth MD PREOPERATIVE DIAGNOSIS: POSTOPERATIVE DIAGNOSIS: PROCEDURE PERFORMED: Colonoscopy to the cecum with hot snare polypectomy x 2 with placement of 1 Resolution clip on each of those polypectomy sites, biopsies of polypoid lesion in transverse colon at 70 cm with placement of submucosal ink ev at that site as well as 2 Resolution clips at that site as well. ESTIMATED BLOOD LOSS: COMPLICATIONS: ANESTHESIA: Monitored anesthesia care. ASSISTANTS: SPECIMENS: DESCRIPTION OF PROCEDURE: The patient was placed in the left lateral decubitus position. The digital rectal exam revealed no abnormalities. The Olympus video pediatric colonoscope was then entered into the rectum and advanced easily to the cecum. The advancement to the cecum was much easier than the previous colonoscopy as the prep was much better after the 2-day prep for this procedure. Once in the cecum, I did identify normal-appearing cecal pouch with appendiceal orifice and a normal-appearing ileocecal valve. There was transillumination of light deep in the right lower quadrant. The scope was slowly withdrawn assessing all mucosal surfaces carefully. Preparation was excellent. In the proximal ascending colon, was an approximately 10 to 12 mm polyp, which was removed by hot snare polypectomy and recovered by suction. The polypectomy site appeared clean, without any sign of residual polyp nor bleeding. A single Resolution clip was applied to the polypectomy site with good deployment and good hemostasis. In the area of the hepatic flexure, was an approximately 12 mm polyp on a fold, which was removed by hot snare polypectomy and recovered by suction. The polypectomy site appeared clean, without any sign of residual polyp nor bleeding. A single Resolution clip was applied to the polypectomy site with good deployment and good hemostasis. In the area at 70 cm and what appeared to be the transverse colon, was the previously known polypoid lesion. I was able to get a better visualization of that today due to the excellent clean out. The previously placed submucosal vitale were seen but were rather faint, The lesion itself was a lobulated flat lesion encompassing approximately 1/3rd of the circumference of the colon. It was tucked partially behind a fold as well. After evaluating it, I felt that I would not be able to remove it in its entirety given its characteristics and therefore multiple biopsies were again obtained from it, particularly in the central area that appeared to be somewhat puckered. As mentioned, I did visualize the previously placed submucosal ink ev which was rather faint. Therefore, I placed another ev just almost adjacent to the lesion itself. I also placed 2 Resolution clips right near the lesion as I think it would be best to get a CT scan to get a definitive idea as to where this is in the colon in the event it needs surgery to be removed. The clips should help to localize the lesion. I did not visualize any other polyps, colitis, nor angiodysplasias. There was a moderate amount of sigmoid diverticulosis. In the rectum, scope was retroflexed, visualizing internal hemorrhoids, but no other pathology. The rectal mucosa appeared normal. Scope was straightened and withdrawn from the patient. She tolerated the procedure well and was returned to the recovery area in stable condition. IMPRESSION: 1. Colon polyps. 2. Diverticulosis. 3. Internal hemorrhoids. PLAN: The patient has been advised to resume her aspirin and Plavix on Wednesday, January 02. She was advised to stay off all NSAIDs long-term while on those blood thinners. I advised her and her daughter, Abby that I will be in touch with the biopsy results from the larger lesion and then decide on a plan for removal of the larger polyp, whether it be surgical resection or possibly repeat attempted endoscopic removal at a different center by a different microbiology professor. I will schedule an outpatient CT scan of the abdomen as well for her to get a better idea as to the exact location of the lesion. This has all been discussed with the patient and her daughter today. MD LADY Pablo/ROBERTA / [id number] RO
== END 2023-12-31 09:38 | disposition home or self-care (01) ==
PROVIDERS: PCP Internal Medicine; Visit Provider Internal Medicine
PROC: 0DJD8ZZ Inspection of Lower Intestinal Tract, Via Natural or Artificial Opening Endoscopic (ICD-10-PCS; CPT 45378; principal; 2023-12-31 07:30)
DX: Z12.11 Encounter for screening for malignant neoplasm of colon (principal); D12.2 Benign neoplasm of ascending colon; D12.4 Benign neoplasm of descending colon; D12.3 Benign neoplasm of transverse colon; K57.30 Diverticulosis of large intestine without perforation or abscess without bleeding; K64.8 Other hemorrhoids; Z86.0101 Personal history of adenomatous and serrated colon polyps; I10 Essential (primary) hypertension; E78.00 Pure hypercholesterolemia, unspecified; J45.909 Unspecified asthma, uncomplicated; K14.3 Hypertrophy of tongue papillae; G40.209 Localization-related (focal) (partial) symptomatic epilepsy and epileptic syndromes with complex partial seizures, not intractable, without status epilepticus; F10.21 Alcohol dependence, in remission; Z87.891 Personal history of nicotine dependence; Z86.73 Personal history of transient ischemic attack (TIA), and cerebral infarction without residual deficits; Z79.82 Long term (current) use of aspirin; Z79.899 Other long term (current) drug therapy; Z79.02 Long term (current) use of antithrombotics/antiplatelets
CPT/HCPCS: 45385; 45380; 45381; 88305; J2003; J2371; J2704

== ENCOUNTER 2024-02-01 15:54 | Outpatient (REF) | payer MEDICARE, SELFPAY ==
[2024-02-01 16:14] LABS: MANUAL DIFF FLAG NO
[2024-02-01 17:07] LABS: Basophils Percent Auto 0.8 % (0-2); Eosinophils Absolute Auto 0.1 X10*3/uL (0.0-0.4); Eosinophils Percent Auto 2.2 % (0-4); Hematocrit 33.6 % (37.0-47.0); Hemoglobin 10.4 g/dl (12.0-16.0); Imm Gran Abs Auto 0.02 X10*3/uL (0.00-0.03); Imm Gran Pct Auto 0.4 % (0.0-0.4); Lymphocytes Absolute Auto 1.2 X10*3/uL (1.2-4.9); Lymphocytes Percent Auto 24.4 % (20-40); Mean Corpuscular Hemoglobin 27.7 pg (27.0-33.0); Mean Corpuscular Volume 89.6 fL (80.0-98.0); Mean Platelet Volume 9.5 fL (9.4-12.3); Monocytes Absolute Auto 0.5 X10*3/uL (0.1-1.2); Monocytes Percent Auto 10.1 % (2-11); Neutrophils Absolute Auto 3.1 x10*3/uL (2.0-8.3); Neutrophils Percent Auto 62.1 % (45-73); Platelet Count 270 X10*3/uL (160-400); Red Blood Count 3.75 X10*6/uL (4.20-5.50); Red Cell Distribution Width 15.8 % (11.0-16.0); White Blood Count 5.1 X10*3/uL (4.8-10.8)
[2024-02-01 17:10] LABS: Appearance Urine Cloudy; Color Urine Yellow; Glucose Urine UA Negative (Negative); Leukocyte Esterase Urine Trace (Negative); Nitrite Urine Negative (Negative); PH 5.5 (5.0-9.0); UMIC TRIGGER UACC YES; Urine Blood Negative (Negative); Urine Ketones Negative (Negative); Urine Protein Negative (Neg-Trace)
[2024-02-01 17:32] LABS: Bacteria Urine None Seen (None Seen); Calcium Oxalate Crystals Urine Present; Hyaline Casts Urine 0-2 /LPF (0-2); RBC Urine 0-2 /HPF (0-2); Squamous Epithelial Cell Urine 0-2 /HPF (0-2); WBC Urine 0-5 /HPF (0-5)
[2024-02-01 17:42] LABS: Alanine Aminotransferase 35 U/L (0-31); Albumin Level 3.8 g/dL (3.5-5.0); Alkaline Phosphatase 83 U/L (39-117); Anion Gap 10 (12-20); Aspartate Amino Transferase 28 U/L (5-31); Bilirubin Total 0.2 mg/dL (0.0-1.0); Blood Urea Nitrogen 24 mg/dL (9-16); Calcium 8.7 mg/dL (8.4-10.2); Carbon Dioxide 24 mmol/L (22-29); Chloride 114 mmol/L (96-108); Cholesterol 146 mg/dL (<200); Estimated Glomerular Filt Rate > 60; Glucose Fasting 108 mg/dL (60-99); HDL Cholesterol 79 mg/dL (>40); LDL Cholesterol Calculated 51 mg/dL (<100); Potassium 3.6 mmol/L (3.3-5.1); Sodium 144 mmol/L (135-145); Total Protein 5.6 g/dL (6.5-8.0); Triglycerides 84 mg/dL (<150)
[2024-02-01 18:01] LABS: TSH reflex Free T4 0.73 uIU/mL (0.32-4.0); Vitamin D 25-OH Total 28.9 ng/mL (>30)
[2024-02-01 18:09] LABS: Vitamin B12 432 pg/mL (200-900)
== END 2024-02-01 15:55 | disposition home or self-care (01) ==
LOC: HO.LAB 15:54
PROVIDERS: PCP Internal Medicine; Visit Provider Internal Medicine
DX: E78.00 Pure hypercholesterolemia, unspecified (principal); E55.9 Vitamin D deficiency, unspecified; D64.9 Anemia, unspecified; E53.8 Deficiency of other specified B group vitamins
CPT/HCPCS: 36415; 80053; 80061; 81001; 82306; 82607; 82746; 84443; 85025

== ENCOUNTER 2024-02-07 09:20 | Outpatient (REF) | payer MEDICARE, SELFPAY ==
--- NOTE | ~2024-02-07 | CT_ITS ---
EXAMINATION: CT ABDOMEN AND PELVIS WITH CONTRAST CLINICAL INFORMATION: Benign neoplasm of transverse colon COMPARISON: CT abdomen pelvis 09/07/2017 TECHNIQUE: Multidetector volumetric imaging was performed from the superior aspect of the liver through the pubic symphysis with intravenous contrast. A total of 85 mL of Omnipaque 350 was utilized for the study 900 mL of p.o. contrast was utilized.. Sagittal and coronal reformatted images were obtained on the technologist's workstation. This CT examination was performed using dose optimization techniques as appropriate, variously including the following: *Automated exposure control *Adjustment of mA and/or kV according to patient size (this includes techniques or standardized protocols for targeted exams where dose is matched to indication/reason for exam; i.e. extremities or head) *Use of iterative reconstruction technique DLP: 221 mGy-cm FINDINGS: LUNG BASES: The visualized lung bases are unremarkable. LIVER, GALLBLADDER, AND BILIARY TREE: The liver is normal in size, shape, and attenuation. No focal hepatic lesion or biliary ductal dilatation is present. Status post cholecystectomy. PANCREAS: Unremarkable. SPLEEN: Unremarkable. ADRENAL GLANDS: Unremarkable. KIDNEYS AND URETERS: The kidneys are normal in size, shape, and attenuation. There is a small punctate 2 mm calculus in the right mid kidney with a 3 mm nonobstructing left lower pole renal calculus. No hydronephrosis, hydroureter, or ureteral calculi seen. No perinephric stranding. BLADDER: Unremarkable. GASTROINTESTINAL TRACT: There are colonic diverticula present without diverticulitis. There is a moderate stool burden present throughout the colon. There is an area of mild narrowing of the proximal transverse colon of uncertain significance (3:41 and 5:18). The small and large bowel are otherwise unremarkable. The appendix is not seen but there is no evidence of appendicitis. ABDOMINAL WALL: No significant hernia is appreciated. A neural stimulator is present in the subcutaneous tissues of the left buttock with lead extending in the subcutaneous tissues cephalad beyond the [id number] LYMPH NODES: No retroperitoneal lymphadenopathy. VASCULAR: Calcific atherosclerotic changes are present in the aorta and iliofemoral vessels. There is no evidence of an abdominal aortic aneurysm. PELVIC VISCERA: The uterus is not seen. An abnormal adnexal mass is not detected. No free intraperitoneal fluid is present. OSSEOUS STRUCTURES: Mild degenerative changes present in the spine with grade 1 anterolisthesis of L4 upon L5. No bony destructive lesions. CT/CT abdomen pelvis w IV con IMPRESSION: 1. There is a focal area of narrowing in the proximal transverse colon of uncertain significance. Correlation with colonoscopy is recommended. 2. Incidental note made of cholecystectomy, bilateral nonobstructing renal calculi, colonic diverticulosis without diverticulitis and degenerative changes in the spine. Fleischner guidelines were followed. Electronically signed by: Sam Laguna MD 02/07/2024 03:52 PM CAESAR
[2024-02-07] MEDS: iohexoL 350 MG/ML 100 ML INFUS..BTL 85 ML IV (11:31)
[2024-02-07] MEDS: Barium Sulfate Oral (Berry) 450 ML ORAL.SUSP 900 ML PO (11:31)
== END 2024-02-07 09:21 | disposition home or self-care (01) ==
LOC: HO.CT 09:20
PROVIDERS: PCP Internal Medicine; Visit Provider Internal Medicine
DX: D12.3 Benign neoplasm of transverse colon (principal)
CPT/HCPCS: 74177; Q9967

== ENCOUNTER 2024-03-06 14:41 | Outpatient (AMB) | payer MEDICARE, SELFPAY ==
--- NOTE | 2024-03-06 14:43 | A.OFFPC_ITS ---
Vital Signs 03/06/24 14:44 Height 5 ft 6 in Weight 110 lb 2 oz BMI 17.8 BP 134/82 Blood Pressure Location Lt brachial Position Sitting Pulse 87 Pulse Source Pulse Oximeter Pulse Oximetry (%) 96 Oxygen Delivery Method Room Air Intake Visit Reasons: 6 month FU Midwife Required: No Accompanied by: Self / Same As Patient Allergies morphine [Morphine] Allergy (Severe, Verified 03/06/24 15:22) VOMITING/HALLUCINATIONS codeine [Codeine] Allergy (Intermediate, Verified 03/06/24 15:22) VOMITING/HALLUCINATIONS, nause/extended abdomen latex Allergy (Unknown, Verified 03/06/24 15:22) Unknown atorvastatin Adverse Reaction (Intermediate, Verified 03/06/24 15:22) fever, chills, abd pain, numbness capsaicin [CAPSAICIN] Adverse Reaction (Intermediate, Verified 03/06/24 15:22) BURNING bacitracin Allergy (Intermediate, Uncoded 03/06/24 15:22) redness and itching adhesives Allergy (Mild, Uncoded 03/06/24 15:22) rash Medication List - Last Reconciled 03/06/24 by Espinoza Santiago MD albuterol sulfate 90 mcg/actuation 2 puffs PO Q6H PRN aspirin 81 mg PO DAILY 90 days cholecalciferol (vitamin D3) 25 mcg PO DAILY 90 days clonazepam 1 mg PO BEDTIME PRN 30 days clonazepam 0.5 mg PO BID PRN 30 days clopidogrel 75 mg PO DAILY duloxetine 30 mg PO BID fluticasone furoate 100 mcg/actuation (Arnuity Ellipta) 1 inh inhalation DAILY fluticasone propionate 50 mcg/actuation 2 sprays intranasal DAILY PRN inhalational spacing device (Aerochamber MV spacer) Use with respiratory inhaler as directed lamotrigine 200 mg PO DAILY 30 days memantine 5 mg PO BID 90 days sertraline 50 mg PO DAILY 90 days simvastatin 20 mg PO BEDTIME topiramate 25 mg PO BEDTIME trazodone 100 mg PO DAILY 90 days Tobacco use date assessed: 03/06/24 Fall risk assessment: No Falls in past year Last assessed Fall Risk: 03/06/24 Dental Screening Dental Screen Date: 03/06/24 Did you have a dental visit in the last 12 months?: No Did you have a dental problem in the last 6 months where you did not have access to dental care?: No Was dental information given to patient?: No HPI 6 month FU HPI Details Patient comes in today for her follow up visit States that she currently feels okay She denies any headaches or dizziness Denies any chest pains, no SOB No nausea/vomiting, no abdominal pain No change in bowel habits noted She had her follow-up labs done last month - to discuss her results [facility] Medical History (Updated 03/13/24 @ 01:55 by Espinoza Santiago MD) Vitamin D deficiency TIA (transient ischemic attack) Seizure Alzheimer's dementia Anxiety Insomnia Osteoporosis Anemia Gait abnormality Partial symptomatic epilepsy with complex partial seizures, not intractable, without status epilepticus Asthma Pure hypercholesterolemia Peripheral arterial disease Unsteady gait Neuropathy Benign essential hypertension Alcoholism in remission Exertional dyspnea Surgical History Status post insertion of nerve stimulator Hx of foot surgery Hx of nasal septoplasty History of esophagogastroduodenoscopy (EGD) H/O colonoscopy History of angioplasty History of partial gastrectomy History of cholecystectomy History of cataract surgery History of hysterectomy History of tubal ligation S/P excision of neuroma Family History Father CVD (cardiovascular disease) Heart disease Hypertension Stroke Mother CVD (cardiovascular disease) Heart disease Asthma Maternal Grandmother No problems noted. Maternal Grandfather No problems noted. Paternal Grandmother No problems noted. Paternal Grandfather No problems noted. Maternal Aunt Tongue cancer Social History Household Members: None Housing: Assisted Living Facility Are you a primary patient care provider to a significant other at home: No Do you presently have visiting nurse or other home services: No Alcohol intake: former Comment: NA Patient Tobacco Use Status: Former Tobacco user e-Cigarette/Vaping Use: Never Used Second Hand Smoke Exposure: No Advance Directives Date on File: 06/12/21 service: No Current occupational status: retired Cognitive needs: No Hearing needs: No Vision needs: Yes Questionnaire PHQ-9 Over the last 2 weeks, how often have you been bothered by any of the following problems? 1. Little interest or pleasure in doing things: not at all 2. Feeling down, depressed, or hopeless: not at all 3. Trouble falling or staying asleep, or sleeping too much: not at all 4. Feeling tired or having little energy: not at all 5. Poor appetite or overeating: not at all 6. Feeling bad about yourself - or that you are a failure or have let yourself or your family down: not at all 7. Trouble concentrating on things, such as reading the newspaper or watching television: not at all 8. Moving or speaking so slowly that other people could have noticed. Or the opposite - being so fidgety or restless that you have been moving around a lot more than usual: not at all 9. Thoughts that you would be better off or of hurting yourself in some way: not at all Total score: 0 Depression Screening Interpretation: Positive Depression Screening Follow-up: Existing condition and In treatment Depression Screening Done: Yes 03952 - PHQ-9 Billing: Yes Source: Developed by Drs. Umesh Petersen, Eden Gonsalez, Adán Suazo and colleagues, with an educational mynor from [employer]. Thrive Questionnaire Date Thrive assessed: 03/06/24 I am a: Patient What is your living situation today?: I have a steady place to live Within the past 12 months, did the food you bought not last and you didn't have the money to get more?: Never true Within the past 12 months, did you worry whether your food would run out before you got money to buy more?: Never true Do you have trouble paying for medicines?: No Do you have trouble getting transportation to medical appointments?: No Do you have trouble paying your heating and electricity bill?: No Do you have trouble taking care of your child, family member or friend?: No Do you have trouble with day-to-day activities such as bathing, preparing meals, shopping, managing finances, etc.?: No Are you currently unemployed and looking for a job?: No Are you interested in more education?: No Please select the resources that you would like help with: None Currently or been in a relationship where the following occur: No concerns reported THRIVE Score: 0 AUDIT C Alcohol Use Questionnaire (AUDIT-C) 1. How often do you have a drink containing alcohol?: Never 3. How often do you have six or more drinks on one occasion?: Never Total Score: 0 Score Reviewed/Action Taken: Yes CHANTELL-7 AMB Questionnaire CHANTELL-7 Date CHANTELL - 7 assessed: 03/06/24 (patient states existing condition ) Feeling nervous, anxious, or on edge: 0 = Not at all Not being able to stop or control worryin = Not at all Worrying too much about different things: 0 = Not at all Trouble relaxin = Not at all Being so restless that it is hard to sit still: 0 = Not at all Becoming easily annoyed or irritable: 0 = Not at all Feeling afraid as if something awful might happen: 0 = Not at all Total CHANTELL-7 score (0-4 normal; 5-9 mild; 10-14 moderate; 15-21 severe): 0 Source: Developed by Drs. Umesh Petersen, Eden Gonsalez, Adán Suazo and colleagues, with an educational mynor from [employer]. CHANTELL-7 Assessment Billing CHANTELL-7 Assessment Tool: CHANTELL-7 Assessment 11425 Review of Systems Const Denies chills, Reports fatigue, Denies fever(s) and Denies headache(s) ENT Denies dysphagia, Denies dizziness, Denies otalgia, Denies headache(s), Reports neck pain (chronic - better controlled since SCS implant last year), Denies odynophagia and Denies sore throat Card Denies chest pain, Denies palpitations and Denies dyspnea Resp Denies cough and Denies dyspnea GI Denies abdominal pain, Denies constipation, Denies dysphagia, Denies heartburn, Denies diarrhea, Denies nausea, Denies odynophagia and Denies vomiting Denies difficulty voiding, Denies nocturia, Denies dysuria and Denies urinary urgency Musc Details: (+)recurrent pain over both lower legs Reports abnormal gait (unsteady), Reports arthralgias (right shoulder, on and off - states that has also improved a lot lately) and Reports neck pain (chronic - better controlled since SCS implant last year) Skin/Breast Denies rash Neuro Reports abnormal gait (unsteady), Denies behavioral changes, Denies dizziness, Denies headache(s) and Reports memory loss Psych Reports anxiety, Denies behavioral changes and Reports memory loss Endo Reports fatigue and Denies palpitations Physical exam (Primary Care) Vital Signs: Last Vital Signs Pulse 87 03/06/24 14:44 BP 134/82 03/06/24 14:44 Pulse Ox 96 03/06/24 14:44 Oxygen Delivery Method Room Air 03/06/24 14:44 BMI result Body Mass Index 17.8 Tobacco/Smoking Status: Tobacco use Status Tobacco use date assessed 03/06/24 03/06/24 14:46 Patient Tobacco Use Status Former Tobacco user 03/06/24 14:46 e-Cigarette/Vaping Use Never Used 03/06/24 14:46 PHQ-9: PHQ-9 Score PHQ-9: Total score 0 03/06/24 15:24 Depression Screening Interpretation: Positive Depression Screening Follow-up: Existing condition and In treatment Thrive Assessment: Date of Thrive Assessment Date Thrive assessed 03/06/24 03/06/24 14:46 Currently or been in a relationship where the following occur: No concerns reported Const General: no acute distress and alert HENMT Ears: TM's normal bilaterally and EAC's normal Throat: Yes posterior oropharynx normal and Yes tonsils normal (no TP con gestion) Neck Neck: No lymphadenopathy and Yes tender (over the cervical spine and paraspinal areas bilaterally, mild) Thyroid: Thyroid normal Resp Auscultation: clear to auscultation bilaterally, no rales and no wheezes Cardio Rate: regular rate Rhythm: regular rhythm Heart sounds: no murmurs GI Palpation (GI): Soft to palpation and nontender Auscultation: normal bowel sounds Back/Spine/Pelvis Cervical Spine: cervical muscular tenderness and Cervical spine tenderness (mild) Thoracic/Lumbar Spine: No thoracic spinal tenderness Skin Rashes: no rashes Neuro General: no focal motor deficits Extrem General: Yes no clubbing, cyanosis or edema Results Reviewed Results Reviewed: Laboratory Tests 02/01/24 02/01/24 16:07 16:08 WBC 5.1 Hgb 10.4 L Hct 33.6 L Plt Count 270 Sodium 144 Potassium 3.6 Creatinine 0.71 Estimated GFR > 60 Fasting Glucose 108 H Calcium 8.7 AST 28 ALT 35 H Triglycerides 84 Cholesterol 146 LDL Cholesterol, Calc 51 HDL Cholesterol 79 Vitamin B12 432 25-OH Vitamin D Total 28.9 L TSH 0.73 Ur Specific [place] 1.020 Urine Protein Negative Urine Glucose (UA) Negative Urine Blood Negative Urine Nitrite Negative Ur Leukocyte Esterase Trace H Coding Level of Care Code Est Pt Level 4 (84488) Diagnoses Degenerative disc disease, cervical M50.30 Migraine without status migrainosus, not intractable, unspecified migraine type G43.909 Migraine type: unspecified Status migrainosus presence: without status migrainosus Intractability: not intractable Benign essential hypertension I10 Pure hypercholesterolemia E78.00 Impaired fasting glucose R73.01 Anemia, unspecified type D64.9 Anemia type: unspecified type Neuropathy G62.9 Mild Alzheimer's dementia without behavioral disturbance, psychotic disturbance, mood disturbance, or anxiety, unspecified timing of dementia onset G30.9; F02.A0 Alzheimer's disease onset: unspecified onset Dementia severity: mild Dementia behavioral or psychological symptom: without behavioral, psychotic, or mood disturbance or anxiety Peripheral arterial disease I73.9 Moderate persistent asthma without complication J45.40 Asthma severity: moderate Asthma persistence: persistent Asthma complication type: uncomplicated Partial symptomatic epilepsy with complex partial seizures, not intractable, without status epilepticus G40.209 Age-related osteoporosis without current pathological fracture M81.0 Osteoporosis type: age-related Presence of current pathological fracture: without current pathological fracture Vitamin D deficiency E55.9 Insomnia, unspecified type G47.00 Insomnia type: unspecified Anxiety F41.9 Additional Codes CHANTELL-7 Assessment Billing - CHANTELL-7 Assessment Tool: CHANTELL-7 Assessment 51647 ([id number]) PHQ-9 - 06514 - PHQ-9 Billing: Yes ([id number]) Assessment & Plan Assessment & Plan (1) Degenerative disc disease, cervical: Code(s): M50.30 - Other cervical disc degeneration, unspecified cervical region Category: Medical Plan: S/P spinal cord implantation by pain management last year on 01/29/2023 Patient states that her neck pain has improved significantly since and she often has no perceived pain at all over her neck lately and she is very happy with the outcome of her interventional procedure Follow up with pain management as scheduled (2) Migraine: Code(s): G43.909 - Migraine, unspecified, not intractable, without status migrainosus Category: Medical Qualifiers: Migraine type: unspecified Status migrainosus presence: without status migrainosus Intractability: not intractable Qualified Code(s): G43.909 - Migraine, unspecified, not intractable, without status migrainosus Plan: Reinforced avoidance of potential migraine triggers Her headaches were controlled on prophylactic Tx but patient states that she hardly had any migraine headaches since her spinal cord implantation for her neck pain so it is likely that her previous neck pains were also a trigger for her migraines Continue Topiramate 25 mg Q HS (3) Benign essential hypertension: Code(s): I10 - Essential (primary) hypertension Category: Medical Plan: Reinforced low sodium diet - goal is systolic BP of at least 130 to 140 mm or less She used to take Losartan 50 mg QD and Clonidine 0.1 mg TID for her blood pressure but she does not appear to need any Rx for her BP lately She is reminded to continue monitoring her blood pressure regularly (4) Pure hypercholesterolemia: Code(s): E78.00 - Pure hypercholesterolemia, unspecified Category: Medical Plan: Results of her labs done last month reviewed and discussed with patient Reinforced low cholesterol diet Continue Simvastatin 20 mg QD Will recheck her labs and fasting lipids in 4 months for follow up (5) Impaired fasting glucose: Code(s): R73.01 - Impaired fasting glucose Category: Medical Plan: Patient's FBS was slightly high at 108 mg/dl on her labs done last month; her in-office HgbA1c was normal at 5.1% when last checked in July 2023 Reinforced low calorie/low carb diet (6) Anemia: Code(s): D64.9 - Anemia, unspecified Category: Medical Qualifiers: Anemia type: unspecified type Qualified Code(s): D64.9 - Anemia, unspecified Plan: Her H/H is again low at 10.4/33.6 on her labs done last month S/P parenteral iron therapy in June 2021; she has taken iron tablets in the past but could not tolerate Rx due to severe constipation Will continue to monitor her CBC regularly Follow up with hematology as scheduled (7) Neuropathy: Comment: NCV done in 2019 - sees Dr. Robbins Code(s): G62.9 - Polyneuropathy, unspecified Category: Medical Plan: NCV done in 2019 revealed (+) sensory, motor and axonal peripheral neuropathy Follow up with neurology as scheduled She was on Gabapentin 100 mg at bedtime in the past but currently does not appear to be on anything for neuropathy (8) Alzheimer's dementia: Code(s): G30.9 - Alzheimer's disease, unspecified; F02.80 - Dementia in other diseases classified elsewhere, unspecified severity, without behavioral disturbance, psychotic disturbance, mood disturbance, and anxiety Category: Medical Qualifiers: Alzheimer's disease onset: unspecified onset Dementia severity: mild Dementia behavioral or psychological symptom: without behavioral, psychotic, or mood disturbance or anxiety Qualified Code(s): G30.9 - Alzheimer's disease, unspecified; F02.A0 - Dementia in other diseases classified elsewhere, mild, without behavioral disturbance, psychotic disturbance, mood disturbance, and anxiety Plan: Patient was diagnosed by neurology a few months ago and started on Memantine 5 mg BID Follow up with neurology as scheduled (9) Peripheral arterial disease: Code(s): I73.9 - Peripheral vascular disease, unspecified Category: Medical Plan: Symptoms have improved significantly following balloon angioplasty of bilateral lower extremities a couple of years ago Continue Clopidogrel 75 mg once a day Follow-up with vascular surgery (Dr. Marquez) as scheduled (10) Asthma: Code(s): J45.909 - Unspecified asthma, uncomplicated Category: Medical Qualifiers: Asthma severity: moderate Asthma persistence: persistent Asthma complication type: uncomplicated Qualified Code(s): J45.40 - Moderate persistent asthma, uncomplicated Plan: Stable/controlled - continue Flovent HFA 110 mcg 1 puff BID and Ventolin HFA 2 puffs 4 times a day as needed (11) Partial symptomatic epilepsy with complex partial seizures, not intractable, without status epilepticus: Code(s): G40.209 - Localization-related (focal) (partial) symptomatic epilepsy and epileptic syndromes with complex partial seizures, not intractable, without status epilepticus Category: Medical Plan: Stable with no recent recurrence - EEG, head CT and carotid doppler done previously all came back normal Continue Lamotrigine 200 mg QD Follow-up with Neurology as scheduled or as needed (12) Osteoporosis: Code(s): M81.0 - Age-related osteoporosis without current pathological fracture Category: Medical Qualifiers: Osteoporosis type: age-related Presence of current pathological fracture: without current pathological fracture Qualified Code(s): M81.0 - Age- related osteoporosis without current pathological fracture Plan: Repeat BMD done on 07/17/2021 revealed (+) osteoporosis based on the lowest T- score value of -2.6 in the lumbar spine Her BMD in the AP spine has declined 10.8% from previous and BMD in the left femur has also declined from previous but only by 1.3% Fall precautions reinforced Have considered referring her to endocrinology for further evaluation and management, given her age, but patient asked to hold off for now Have also offered to start her on oral bisphosphonates but after hearing about their potential side effects, patient declined Rx (13) Vitamin D deficiency: Code(s): E55.9 - Vitamin D deficiency, unspecified Category: Medical Plan: Will start her on Vitamin D3 1000 units QD (14) Insomnia: Code(s): G47.00 - Insomnia, unspecified Category: Medical Qualifiers: Insomnia type: unspecified Qualified Code(s): G47.00 - Insomnia, unspecified Plan: Sleep hygiene reinforced Continue Trazodone 100 mg Q HS PRN (15) Anxiety: Code(s): F41.9 - Anxiety disorder, unspecified Category: Medical Plan: Continue Sertraline 50 mg QD - patient states that her Rx has been helping a lot with her anxiety Plan Follow up in 4 months Orders: Orders Vitamin D 25-OH Total 4 Months E55.9 - Vitamin D deficiency, unspecified Lipid Panel 4 Months E78.00 - Pure hypercholesterolemia, unspecified Hemoglobin A1c 4 Months R73.01 - Impaired fasting glucose Complete Blood Count Auto Diff 4 Months D64.9 - Anemia, unspecified Comprehensive [place]. Panel Fast 4 Months E78.00 - Pure hypercholesterolemia, unspecified TSH reflex Free T4 4 Months E78.00 - Pure hypercholesterolemia, unspecified UA CC w/rflx Micro + Cult 4 Months R30.0 - Dysuria Vitamin B12 and Folate 4 Months E53.8 - Deficiency of other specified B group vitamins Medications: New cholecalciferol (vitamin D3) 25 mcg PO DAILY 90 days 90 caps 3RF E55.9 - Vitamin D deficiency, unspecified
--- OUTSIDE RECORDS SUMMARY | 2024-03-06 14:43 | XMS_ITS | Clinical Summary ---
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 Operator Name Role Phone VITALY HYLTON, KADIE Unavailable Unavailable VILMA RN, KATERIN Unavailable Unavailable ANNETTA PT, JARED Unavailable Unavailable [place] OT, CYNDY Unavailable Unavailable Payers Payer Name Policy Type Policy Number Effective Date Expira tion Date MEDICARE.NGS.PDGM [id number] Problems Condition Name Condition Details Condition Category Status Onset Date Resolution Date Last Treatment Date Treating Clinician Comments PERIPHERAL VASCULAR DISEASE, UNSPECIFIED Active 09-02 00:00: 00 DIZZINESS AND GIDDINESS Active 08-30 00:00: 00 ESSENTIAL (PRIMARY) HYPERTENSION Active 09-02 00:00: 00 OTHER SPECIFIED ANXIETY DISORDERS Active 09-02 00:00: 00 Irritable bowel syndrome, unspecified Active 09-02 00:00: 00 HISTORY OF FALLING Active 09-02 00:00: 00 PERSONAL HISTORY OF NICOTINE DEPENDENCE Active 09-02 00:00: 00 OTHER PERIPHERAL VERTIGO, BILATERAL Active 08-30 00:00: 00 Allergies, Adverse Reactions, Alerts Allergy Name Allergy Type Status Severity Reaction(s) Onset Date Inactive Date Treating Clinician Comments CODEINE Propensity to adverse reactions Active 2020-08 20:57:2 6 Medications Ordered Medication Name Filled Medication Name Start Date Stop Date Current Medication? Ordering Clinician Indication Dosage Frequency Signature (SIG) Comments Components Acetaminoph en Extra Strength 500 mg tablet 06-20 00:00: 00 Yes [id number] PAIN 2 tablet 2 TIMES DAILY 2 tablet 2 TIMES DAILY (route: oral) Med Classific ation: Analgesic , Anti-infl ammatory or Antipyret ic Aspirin Low Dose 81 mg tablet,vargas yed release 06-20 00:00: 00 Yes [id number] HEART HEALTH 1 tablet DAILY 1 tablet DAILY (route: oral) Med Classific ation: Hematolog ical Agents clonazepam 0.5 mg tablet 06-20 00:00: 00 Yes [id number] SEIZURES 1 tablet 2 TIMES DAILY 1 tablet 2 TIMES DAILY (route: oral) Med Classific ation: Central Nervous System Agents clonazepam 1 mg tablet 06-20 00:00: 00 09-02 00:00 :00 No [id number] 1 tablet BEDTIME 1 tablet BEDTIME (route: oral) Med Classific ation: Central Nervous System Agents clopidogrel 75 mg tablet 06-20 00:00: 00 Yes [id number] BLOOD THINNER 1 tablet DAILY 1 tablet DAILY (route: oral) Med Classific ation: Hematolog ical Agents duloxetine 30 mg capsule,del ayed release 06-20 00:00: 00 Yes [id number] DEPRESSION/ ANXIETY 1 capsule 2 TIMES DAILY 1 capsule 2 TIMES DAILY (route: oral) Med Classific ation: Central Nervous System Agents lamotrigine 200 mg tablet 06-20 00:00: 00 Yes [id number] SEIZURES 1 tablet DAILY 1 tablet DAILY (route: oral) Med Classific ation: Central Nervous System Agents Multivitami n 50 Plus tablet 06-20 00:00: 00 Yes [id number] SUPPLEMENT 1 tablet DAILY 1 tablet DAILY (route: oral) Med Classific ation: Electroly te Balance-N utritiona l Products sertraline 50 mg tablet 06-20 00:00: 00 Yes [id number] DEPRESSION 1 tablet DAILY 1 tablet DAILY (route: oral) Med Classific ation: Central Nervous System Agents simvastatin 20 mg tablet 06-20 00:00: 00 Yes [id number] CHOLESTEROL 1 tablet DAILY 1 tablet DAILY (route: oral) Med Classific ation: Cardiovas cular Therapy Agents trazodone 100 mg tablet 06-20 00:00: 00 Yes [id number] DEPRESSION/ SLEEP 1-2 tablet DAILY 1-2 tablet DAILY (route: oral) Med Classific ation: Central Nervous System Agents Vital Signs Vital Name Observation Time Observation Value Commen ts Temperature 2020-10-02 14:17:10.000 97.6 [degF] Temperature 2020-09-18 12:53:25.000 97.2 [degF] Temperature 2020-09-16 12:17:12.000 97.7 [degF] Temperature 2020-09-13 13:54:50.000 97 [degF] Temperature 2020-09-10 14:14:54.000 97.8 [degF] Temperature 2020-09-09 12:12:14.000 97.6 [degF] Temperature 2020-09-06 12:09:23.000 97 [degF] Temperature 2020-09-02 17:59:09.000 97.8 [degF] Height 2020-09-02 18:00:11.000 66 [in_us] Pulse 2020-10-02 14:13:10.000 73 /min Pulse 2020-09-18 12:53:31.000 80 /min Pulse 2020-09-16 12:17:20.000 88 /min Pulse 2020-09-13 13:55:27.000 86 /min Pulse 2020-09-10 14:16:47.000 88 /min Pulse 2020-09-09 12:13:01.000 88 /min Pulse 2020-09-06 12:09:35.000 94 /min Pulse 2020-09-02 17:59:34.000 92 /min O2 Saturation (%) 2020-10-02 14:13:18.000 99 % O2 Saturation (%) 2020-09-18 12:53:57.000 96 % O2 Saturation (%) 2020-09-16 12:17:55.000 96 % O2 Saturation (%) 2020-09-13 13:55:09.000 97 % O2 Saturation (%) 2020-09-10 14:17:04.000 100 % O2 Saturation (%) 2020-09-09 12:12:50.000 97 % O2 Saturation (%) 2020-09-06 12:09:51.000 95 % Respirations 2020-10-02 14:16:21.000 18 /min Respirations 2020-09-18 12:53:46.000 18 /min Respirations 2020-09-16 12:17:34.000 18 /min Respirations 2020-09-13 13:56:23.000 18 /min Respirations 2020-09-10 14:16:55.000 18 /min Respirations 2020-09-09 12:13:15.000 18 /min Respirations 2020-09-06 12:12:18.000 18 /min Respirations 2020-09-02 17:59:40.000 18 /min Systolic Blood Pressure 2020-10-02 14:16:37.000 120 mm [Hg] Systolic Blood Pressure 2020-09-18 12:53:40.000 110 mm [Hg] Systolic Blood Pressure 2020-09-16 12:17:45.000 120 mm [Hg] Systolic Blood Pressure 2020-09-13 14:01:22.000 120 mm [Hg] Systolic Blood Pressure 2020-09-10 14:18:17.000 110 mm [Hg] Systolic Blood Pressure 2020-09-09 12:22:07.000 118 mm [Hg] Systolic Blood Pressure 2020-09-09 12:15:04.000 122 mm [Hg] Systolic Blood Pressure 2020-09-06 12:12:09.000 130 mm [Hg] Systolic Blood Pressure 2020-09-02 17:59:58.000 110 mm [Hg] Systolic Blood Pressure 2020-09-02 17:59:50.000 120 mm [Hg] Diastolic Blood Pressure 2020-10-02 14:16:37.000 72 mm [Hg] Diastolic Blood Pressure 2020-09-18 12:53:40.000 62 mm [Hg] Diastolic Blood Pressure 2020-09-16 12:17:45.000 70 mm [Hg] Diastolic Blood Pressure 2020-09-13 14:01:22.000 72 mm [Hg] Diastolic Blood Pressure 2020-09-10 14:18:17.000 70 mm [Hg] Diastolic Blood Pressure 2020-09-09 12:22:07.000 66 mm [Hg] Diastolic Blood Pressure 2020-09-09 12:15:04.000 70 mm [Hg] Diastolic Blood Pressure 2020-09-06 12:12:09.000 80 mm [Hg] Diastolic Blood Pressure 2020-09-02 17:59:58.000 70 mm [Hg] Diastolic Blood Pressure 2020-09-02 17:59:50.000 70 mm [Hg] Plan of Treatment Planned Activity Planned Date Details Comments Future Scheduled Test SKILLED NU RSE TO ASSESS, EVALUATE, AND DEVELOP AN INDIVIDUALIZED PLAN OF CARE. AGENCY MAY ACCEPT ORDERS FROM CONSULTING PHYSICIANS DR KADIE MATHEW TO OBSERVE/ASSESS RISK FOR FALLS AND INSTRUCT IN FALL PREVENTION, HOME SAFETY, MEDICATION MANAGEMENT, INFECTION PREVENTION, AND NUTRITION MANAGEMENT. SN MAY PERFORM O2 SATURATION LEVEL ON ADMISSION AND PRN FOR SOB TO ASSESS PATIENT, WITH NOTIFICATION TO THE PHYSICIAN IF SATURATION IS 90% IN THE ABSENCE OF MORE SPECIFIC PARAMETERS FROM THE PHYSICIAN. AGENCY MAY PERFORM A RESUMPTION OF CARE VISIT FOLLOWING ANY HOSPITAL ADMISSION. ALL DISCIPLINES (EXCEPT [facility]) MAY PROVIDE TELEHEALTH PHONE/REMOTE/VIRTUAL VISITS IN LIEU OF AN IN-PERSON VISIT THAT DOES NOT REQUIRE HANDS ON OR IN PERSON ASSESSMENT WHEN AN IN-PERSON VISIT IS NOT POSSIBLE DUE TO THE PUBLIC HEALTH EMERGENCY RELATED TO THE COVID-19 PANDEMIC. SKILLED NURSE TO INSTRUCT PATIENT / CAREGIVER ON DISEASE PROCESS, SELF MANAGEMENT, SIGNS AND SYMPTOMS TO REPORT TO SN/PHYSICIAN, RELATED TO: FALLS, SYNCOPE, HLD, DEPRESSION, ANXIETY, PAD [code = SKILLED NURSE TO ASSESS, EVALUATE, AND DEVELOP AN INDIVIDUALIZED PLAN OF CARE. AGENCY MAY ACCEPT ORDERS FROM CONSULTING PHYSICIANS DR KADIE MATHEW TO OBSERVE/ASSESS RISK FOR FALLS AND INSTRUCT IN FALL PREVENTION, HOME SAFETY, MEDICATION MANAGEMENT, INFECTION PREVENTION, AND NUTRITION MANAGEMENT. SN MAY PERFORM O2 SATURATION LEVEL ON ADMISSION AND PRN FOR SOB TO ASSESS PATIENT, WITH NOTIFICATION TO THE PHYSICIAN IF SATURATION IS 90% IN THE ABSENCE OF MORE SPECIFIC PARAMETERS FROM THE PHYSICIAN. AGENCY MAY PERFORM A RESUMPTION OF CARE VISIT FOLLOWING ANY HOSPITAL ADMISSION. ALL DISCIPLINES (EXCEPT [facility]) MAY PROVIDE TELEHEALTH PHONE/REMOTE/VIRTUAL VISITS IN LIEU OF AN IN-PERSON VISIT THAT DOES NOT REQUIRE HANDS ON OR IN PERSON ASSESSMENT WHEN AN IN-PERSON VISIT IS NOT POSSIBLE DUE TO THE PUBLIC HEALTH EMERGENCY RELATED TO THE COVID-19 PANDEMIC. SKILLED NURSE TO INSTRUCT PATIENT / CAREGIVER ON DISEASE PROCESS, SELF MANAGEMENT, SIGNS AND SYMPTOMS TO REPORT TO SN/PHYSICIAN, RELATED TO: FALLS, SYNCOPE, HLD, DEPRESSION, ANXIETY, PAD] Future Scheduled Test MEDICATION MANAGEMENT; SKILLED NURSE TO REVIEW MEDICATIONS FOR INTERACTIONS, EFFECTIVENESS OF DRUG THERAPY, AND SIGNS/SYMPTOMS OF ADVERSE REACTIONS. MAY INSTRUCT AND REINFORCE MEDICATION TEACHING RELATED TO THE USE OF MEDICATIONS, DOSAGE, FREQUENCY, PURPOSE, SIDE EFFECTS, AND TO REPORT COMPLICATIONS. [code = MEDICATION MANAGEMENT; SKILLED NURSE TO REVIEW MEDICATIONS FOR INTERACTIONS, EFFECTIVENESS OF DRUG THERAPY, AND SIGNS/SYMPTOMS OF ADVERSE REACTIONS. MAY INSTRUCT AND REINFORCE MEDICATION TEACHING RELATED TO THE USE OF MEDICATIONS, DOSAGE, FREQUENCY, PURPOSE, SIDE EFFECTS, AND TO REPORT COMPLICATIONS.] Future Scheduled Test RISK FOR H OSPITALIZATION; SKILLED NURSE TO INSTRUCT PATIENT/CAREGIVER ON RISK FOR HOSPITALIZATION, TEACH SIGNS AND SYMPTOMS THAT PUT PATIENT AT RISK, WHEN TO NOTIFY NURSE OF COMPLICATIONS/DECLINE, AND WHEN TO CALL 911. SKILLED NURSE TO INSTRUCT PATIENT/CAREGIVER ON: SIGNS AND SYMPTOMS TO BE ON ALERT FOR EARLY INTERVENTION, PRIOR TO NEEDING EMERGENCY SERVICES CALL [facility] NURSE TO KEEP SKID ADZER SYMPTOM REPORT FOR VISIBLE REFERENCE NOTIFY SKILLED NURSE/PHYSICIAN FOR DECLINE IN STATS WHEN AND HOW TO CALL HOME HEALTH AGENCY FACILITATE PHYSICIAN FOLLOW UP APPOINTMENT IDENTIFY SOCIOECONOMIC CONCERNS AND MAKE APPROPRIATE REFERRAL NEEDED [code = RISK FOR HOSPITALIZATION; SKILLED NURSE TO INSTRUCT PATIENT/CAREGIVER ON RISK FOR HOSPITALIZATION, TEACH SIGNS AND SYMPTOMS THAT PUT PATIENT AT RISK, WHEN TO NOTIFY NURSE OF COMPLICATIONS/DECLINE, AND WHEN TO CALL 911. SKILLED NURSE TO INSTRUCT PATIENT/CAREGIVER ON: SIGNS AND SYMPTOMS TO BE ON ALERT FOR EARLY INTERVENTION, PRIOR TO NEEDING EMERGENCY SERVICES CALL [facility] NURSE TO KEEP SKID ADZER SYMPTOM REPORT FOR VISIBLE REFERENCE NOTIFY SKILLED NURSE/PHYSICIAN FOR DECLINE IN STATS WHEN AND HOW TO CALL HOME HEALTH AGENCY FACILITATE PHYSICIAN FOLLOW UP APPOINTMENT IDENTIFY SOCIOECONOMIC CONCERNS AND MAKE APPROPRIATE REFERRAL NEEDED] Future Scheduled Test NEUROLOGIC AL SYSTEM MANAGEMENT; SKILLED NURSE TO OBSERVE, ASSESS AND TEACH RELATED TO ALTERED NEUROLOGICAL STATUS TO MINIMIZE COMPLICATIONS AND REDUCE HOSPITALIZATION. [code = NEUROLOGICAL SYSTEM MANAGEMENT; SKILLED NURSE TO OBSERVE, ASSESS AND TEACH RELATED TO ALTERED NEUROLOGICAL STATUS TO MINIMIZE COMPLICATIONS AND REDUCE HOSPITALIZATION.] Future Scheduled Test PAIN MANAG EMENT; SKILLED NURSE TO OBSERVE, ASSESS, AND PROVIDE EDUCATION ON PAIN MANAGEMENT TECHNIQUES. [code = PAIN MANAGEMENT; SKILLED NURSE TO OBSERVE, ASSESS, AND PROVIDE EDUCATION ON PAIN MANAGEMENT TECHNIQUES.] Future Scheduled Test FALL REDUC TION MANAGEMENT; NURSING TO PROVIDE SKILLED ASSESSMENT, EDUCATION, AND INTERVENTION TO IDENTIFY FALL RISK FACTORS SUCH MEDICATIONS THAT MAY CAUSE DIZZINESS, CHRONIC DISEASES, PSYCHOLOGICAL FACTORS, AND EMPOWER/EDUCATE PATIENT/CAREGIVER TO MINIMIZE FALL RISK. [code = FALL REDUCTION MANAGEMENT; NURSING TO PROVIDE SKILLED ASSESSMENT, EDUCATION, AND INTERVENTION TO IDENTIFY FALL RISK FACTORS SUCH MEDICATIONS THAT MAY CAUSE DIZZINESS, CHRONIC DISEASES, PSYCHOLOGICAL FACTORS, AND EMPOWER/EDUCATE PATIENT/CAREGIVER TO MINIMIZE FALL RISK.] Future Scheduled Test PHYSICAL T HERAPIST TO EVALUATE [code = PHYSICAL THERAPIST TO EVALUATE ] Future Scheduled Test PRN VISITS ; PATIENT REQUIRES 2 PRN FPC VISITS FOR COMPLICATIONS RELATED TO IN HOME SAFETY FALL PREVENTION COMPLICATIONS OF DISEASE PROCESS MED MANAGEMENT [code = PRN VISITS; PATIENT REQUIRES 2 PRN FPC VISITS FOR COMPLICATIONS RELATED TO IN HOME SAFETY FALL PREVENTION COMPLICATIONS OF DISEASE PROCESS MED MANAGEMENT ] Future Scheduled Test AGENCY MAY PERFORM A RESUMPTION OF CARE VISIT FOLLOWING ANY HOSPITAL ADMISSION. ALL DISCIPLINES (EXCEPT [facility]) MAY PROVIDE TELEHEALTH PHONE/REMOTE/VIRTUAL VISITS IN LIEU OF AN IN-PERSON VISIT THAT DOES NOT REQUIRE HANDS ON OR IN PERSON ASSESSMENT WHEN AN IN-PERSON VISIT IS NOT POSSIBLE DUE TO THE PUBLIC HEALTH EMERGENCY RELATED TO THE COVID-19 PANDEMIC. OCCUPATIONAL THERAPY TO EVALUATE, ASSESS, AND MONITOR, PROVIDE SKILLED THERAPEUTIC INTERVENTION, ACTIVITY, EDUCATION, AND TRAINING TO ADDRESS; BATHING/SHOWERING (OT) TOILETING (OT) DRESSING (OT) MODIFIED YENI INDEX (OT) MEAL PREPARATION AND CLEANUP (OT) HOME ESTABLISHMENT AND HOME MAINTENANCE (OT) EQUILIBRIUM REACTIONS/BALANCE (OT) ENERGY CONSERVATION/ACTIVITY DEMAND (OT) FALL REDUCTION (OT) [code = AGENCY MAY PERFORM A RESUMPTION OF CARE VISIT FOLLOWING ANY HOSPITAL ADMISSION. ALL DISCIPLINES (EXCEPT [facility]) MAY PROVIDE TELEHEALTH PHONE/REMOTE/VIRTUAL VISITS IN LIEU OF AN IN-PERSON VISIT THAT DOES NOT REQUIRE HANDS ON OR IN PERSON ASSESSMENT WHEN AN IN-PERSON VISIT IS NOT POSSIBLE DUE TO THE PUBLIC HEALTH EMERGENCY RELATED TO THE COVID-19 PANDEMIC. OCCUPATIONAL THERAPY TO EVALUATE, ASSESS, AND MONITOR, PROVIDE SKILLED THERAPEUTIC INTERVENTION, ACTIVITY, EDUCATION, AND TRAINING TO ADDRESS; BATHING/SHOWERING (OT) TOILETING (OT) DRESSING (OT) MODIFIED YENI INDEX (OT) MEAL PREPARATION AND CLEANUP (OT) HOME ESTABLISHMENT AND HOME MAINTENANCE (OT) EQUILIBRIUM REACTIONS/BALANCE (OT) ENERGY CONSERVATION/ACTIVITY DEMAND (OT) FALL REDUCTION (OT)] Goal 2020-10-02 Patient Goal - HAVE NO FALLS Goal Provider Goal - A PLAN OF CARE WILL BE ESTABLISHED THAT MEETS THE PATIENT'S NURSING NEEDS PATIENT WILL DEMONSTRATE OXYGEN SATURATION WITH NORMAL LIMITS OR TO PATIENT'S OPTIMAL LEVEL ESTABLISHED BY THE PHYSICIAN THROUGHOUT CARE Goal Provider Goal - PATIENT/CAREGIVER TO VERBALIZE, AND CONSISTENTLY DEMONSTRATE EFFECTIVE, SAFE MANAGEMENT OF MEDICATION INCLUDING KNOWLEDGE OF EFFECTIVENESS, POTENTIAL SIDE EFFECTS AND DRUG REACTIONS AND WHEN TO CONTACT THE APPROPRIATE CARE PROVIDER. PATIENT/CAREGIVER WILL BE ABLE TO VERBALIZE UNDERSTANDING OF MEDICATION REGIMEN AND ACCURATELY TAKE MEDICATIONS PRESCRIBED WITHOUT ADVERSE EFFECTS BY 10/31/20 Goal Provider Goal - PATIENT/CAREGIVER WILL VERBALIZE UNDERSTANDING OF SIGNS AND SYMPTOMS THAT PUT THE PATIENT AT RISK FOR HOSPITALIZATION, WHEN TO NOTIFY SN OF COMPLICATIONS/DECLINE AND WHEN TO CALL 911. Goal Provider Goal - PATIENT / CAREGIVER WILL VERBALIZE/DEMONSTRATE UNDERSTANDING OF MEASURES TO MANAGE ALTERED NEUROLOGICAL STATUS BY 10/31/20. Goal Provider Goal - PATIENT / CAREGIVER WILL VERBALIZE / DEMONSTRATE UNDERSTANDING OF PAIN CONTROL MEASURES BY 10/31/20 Goal Provider Goal - PATIENT/CAREGIVER ABLE TO IDENTIFY FALL RISK FACTORS AND IMPLEMENT STRATEGIES TO MINIMIZE FALL RISK. PATIENT/CAREGIVER WILL VERBALIZE/DEMONSTRATE AN ABILITY TO ADHERE TO FALL REDUCTION SELF MANAGEMENT AND LIFE-STYLE CHANGES AT DISCHARGE. PERSONAL GOAL(S) STATED BY PATIENT/CAREGIVER WILL BE MET BY 10/31/20. Goal Provider Goal - Goal Provider Goal - Goal Provider Goal - OT LTG: PATIENT WILL DEMONSTRATE IMPROVED ABILITY TO PERFORM BATHING/SHOWERING FROM SBA TO INDEPENDENCE WITHIN 6 WEEKS OT LTG: PATIENT WILL DEMONSTRATE IMPROVED ABILITY TO PERFORM BATH/SHOWER TRANSFER FROM SBA TO INDEPENDENCE WITHIN 3 OT LTG: PATIENT WILL DEMONSTRATE IMPROVED ABILITY TO PERFORM TOILET TRANSFER FROM SBA TO INDEPENDENCE WITHIN 2 WEEKS OT LTG: PATIENT WILL DEMONSTRATE IMPROVED ABILITY TO PERFORM UPPER AND LOWER BODY DRESSING INCLUDING ITEM RETRIEVAL FROM SBA W8TH ADAPTIVE EQUIPMENT TO INDEPENDENCE WITH SAFE TECHNIQUE WITHIN 3 WEEKS. OT LTG: PATIENT WILL DEMONSTRATE IMPROVED INDEPENDENCE WITH ACTIVITIES OF DAILY LIVING (ADL) SKILLS EVIDENCED BY AN IMPROVEMENT IN MODIFIED YENI INDEX SCORE FROM 79/100 TO 95/100 INDICATING DECREASED DEPENDENCY ON CAREGIVER ASSISTANCE WITHIN 7 WEEKS OT LTG: PATIENT WILL DEMONSTRATE THE ABILITY TO COMPLETE MEAL PREPARATION AND CLEANUP FROM SBA TO INDEPENDENCE WITH SAFE TECHNIQUE WITHIN 4 WEEKS OT LTG: PATIENT WILL DEMONSTRATE THE ABILITY TO COMPLETE HOME ESTABLISHMENT/MANAGEMENT, LAUNDRY MANAGEMENT, SAFETY WITH VACUUMING FROM SBA TO INDEPENDENCE UTILIZING ENERGY CONSERVATION AND WORK SIMPLIFICATION TECHNIQUES WITHIN 7WEEKS . OT LTG: PATIENT WILL DEMONSTRATE DECREASED FALL RISK EVIDENCED BY AN IMPROVEMENT IN FUNCTIONAL REACH SCORE FROM 9 INCHES TO 12 INCHES TO ASSIST WITH ALL IADL AND ADL SKILLS WITHIN 7 WEEKS OT LTG: PATIENT WILL DEMONSTRATE UTILIZATION OF ENERGY CONSERVATION STRATEGIES FROM MODERATE VERBAL CUES TO INDEPENDENT TO PERFORM HOME MANAGEMENT CHORES WITH SAFE TECHNIQUE AND DECREASED FALL RISK WITHIN 6 WEEKS OT LTG: PATIENT/CAREGIVER WILL BE ABLE TO IMPLEMENT OCCUPATIONAL THERAPY EDUCATION RECOMMENDATIONS SPECIFIC TO FALL REDUCTION FOR IMPROVED ADL/IADL COMPLETION AND HOME SAFETY BY DISCHARGE. Reason for Visit INDEPENDENT WITH USE OF ASSISTIVE DEVICE Encounters Start Date/Time End Date/Time Encounter Type Admission Type Attending [facility] Care Department Encounter ID Discharge Date Discharge Status Discharge Condition Discharge Reason Percent Goals Met 2020-09-02 00:00:00 2020-10-02 00:00:00 Outpatient KATERIN QUINONES [facility] [id number] 2020-10-02 00:00:00 DISCHARGE TO HOME OR SELF CARE INDEPENDEN T WITH USE OF ASSISTIVE DEVICE HH OR [facility]- GOALS MET 100.00
[2024-03-06 14:44] VITALS: BP 134/82; PULSE 87; O2SAT 96; BMI 17.8
== END 2024-03-06 15:39 | disposition home or self-care (01) ==
PROVIDERS: PCP Internal Medicine; Visit Provider Internal Medicine
DX: G30.9 Alzheimer's disease, unspecified (principal); F02.A0 Dementia in other diseases classified elsewhere, mild, without behavioral disturbance, psychotic disturbance, mood disturbance, and anxiety; I73.9 Peripheral vascular disease, unspecified; G40.209 Localization-related (focal) (partial) symptomatic epilepsy and epileptic syndromes with complex partial seizures, not intractable, without status epilepticus; M50.30 Other cervical disc degeneration, unspecified cervical region; G43.909 Migraine, unspecified, not intractable, without status migrainosus; I10 Essential (primary) hypertension; E78.00 Pure hypercholesterolemia, unspecified; R73.01 Impaired fasting glucose; D64.9 Anemia, unspecified; G62.9 Polyneuropathy, unspecified; J45.40 Moderate persistent asthma, uncomplicated

== ENCOUNTER → 2024-03-06 14:41 | Outpatient (BNVA) | payer MEDICARE, SELFPAY | PROVIDERS: PCP Internal Medicine; Visit Provider Internal Medicine | DX: G43.909 Migraine, unspecified, not intractable, without status migrainosus (principal); M50.30 Other cervical disc degeneration, unspecified cervical region; I10 Essential (primary) hypertension; E78.00 Pure hypercholesterolemia, unspecified; R73.01 Impaired fasting glucose; D64.9 Anemia, unspecified; G62.9 Polyneuropathy, unspecified; G30.9 Alzheimer's disease, unspecified; F02.A0 Dementia in other diseases classified elsewhere, mild, without behavioral disturbance, psychotic disturbance, mood disturbance, and anxiety; I73.9 Peripheral vascular disease, unspecified; M81.0 Age-related osteoporosis without current pathological fracture; J45.40 Moderate persistent asthma, uncomplicated; E55.9 Vitamin D deficiency, unspecified; G47.00 Insomnia, unspecified | CPT/HCPCS: 96127; 99212 ==

== ENCOUNTER 2024-06-08 14:41 | Outpatient (AMB) | payer MEDICARE, SELFPAY ==
--- NOTE | 2024-06-08 14:42 | MHC.PC.OV ---
Intake Visit Reasons: coughing and headache [phone] Dolly Driver Required: No Accompanied by: Self / Same As Patient Allergies morphine [Morphine] Allergy (Severe, Verified 06/19/24 13:32) VOMITING/HALLUCINATIONS codeine [Codeine] Allergy (Intermediate, Verified 06/19/24 13:32) VOMITING/HALLUCINATIONS, nause/extended abdomen latex Allergy (Unknown, Verified 06/19/24 13:32) Unknown atorvastatin Adverse Reaction (Intermediate, Verified 06/19/24 13:32) fever, chills, abd pain, numbness capsaicin [CAPSAICIN] Adverse Reaction (Intermediate, Verified 06/19/24 13:32) BURNING bacitracin Allergy (Intermediate, Uncoded 06/19/24 13:32) redness and itching adhesives Allergy (Mild, Uncoded 06/19/24 13:32) rash Medication List - Last Reconciled 06/19/24 by MAREK Martini albuterol sulfate 90 mcg/actuation 2 puffs PO Q6H PRN amoxicillin-pot clavulanate 875-125 mg 1 tab PO BID 10 days aspirin 81 mg PO DAILY 90 days cholecalciferol (vitamin D3) 25 mcg PO DAILY 90 days clonazepam 1 mg PO BEDTIME PRN 30 days clonazepam 0.5 mg PO BID PRN 30 days clopidogrel 75 mg PO DAILY duloxetine 30 mg PO BID fluticasone propionate 50 mcg/actuation 2 sprays intranasal DAILY PRN fluticasone propionate 110 mcg/actuation 1 puff PO BID NS inhalational spacing device (Aerochamber MV spacer) Use with respiratory inhaler as directed lamotrigine 200 mg PO DAILY 30 days memantine 5 mg PO BID 90 days prednisone 10 mg PO DIRECTED sertraline 50 mg PO DAILY 90 days simvastatin 20 mg PO BEDTIME topiramate 25 mg PO BEDTIME trazodone 100 mg PO DAILY 90 days Tobacco use date assessed: 06/08/24 Fall risk assessment: No Falls in past year Last assessed Fall Risk: 06/08/24 Dental Screening Dental Screen Date: 06/08/24 Did you have a dental visit in the last 12 months?: No Did you have a dental problem in the last 6 months where you did not have access to dental care?: No Was dental information given to patient?: Patient has dentist HPI coughing and headache [phone] HPI Details This is a medically necessary visit as the patient would typically be seen in the office, however, the patient is unable to come in the office so the visit was converted to an audiovisual, telephone visit format with patient's consent and request. Patient understands that this visit was in place of an in person visit and is aware of the risks of communicating via phone/computer and verbally consents. The patient is 79 year old female evaluating through telehealth with concerns of respiratory symptoms She reports coughing, sneezing, chest tightness, and headache Patient reports a history of asthma and that she has been using her inhaler Patient reports that her ears starting to hurt in her nose or congested She feels like her symptoms are getting worse; she is not sure about sick contact because she lives in an apartment and is around a lot of people She denies chest pain or heart palpitation or dizziness She denies body aches or any GI symptoms [facility] Medical History (Updated 06/19/24 @ 13:56 by MAREK Martini) Vitamin D deficiency TIA (transient ischemic attack) Seizure Alzheimer's dementia Anxiety Insomnia Osteoporosis Anemia Gait abnormality Partial symptomatic epilepsy with complex partial seizures, not intractable, without status epilepticus Asthma Pure hypercholesterolemia Peripheral arterial disease Unsteady gait Neuropathy Benign essential hypertension Alcoholism in remission Exertional dyspnea Surgical History Status post insertion of nerve stimulator Hx of foot surgery Hx of nasal septoplasty History of esophagogastroduodenoscopy (EGD) H/O colonoscopy History of angioplasty History of partial gastrectomy History of cholecystectomy History of cataract surgery History of hysterectomy History of tubal ligation S/P excision of neuroma Family History Father CVD (cardiovascular disease) Heart disease Hypertension Stroke Mother CVD (cardiovascular disease) Heart disease Asthma Maternal Grandmother No problems noted. Maternal Grandfather No problems noted. Paternal Grandmother No problems noted. Paternal Grandfather No problems noted. Maternal Aunt Tongue cancer Social History Household Members: None Housing: Assisted Living Facility Are you a primary day care provider to a significant other at home: No Do you presently have visiting nurse or other home services: No Alcohol intake: former Comment: NA Patient Tobacco Use Status: Former Tobacco user e-Cigarette/Vaping Use: Never Used Second Hand Smoke Exposure: No Advance Directives Date on File: 06/12/21 service: No Current occupational status: retired Cognitive needs: No Hearing needs: No Vision needs: Yes Questionnaire PHQ-9 Over the last 2 weeks, how often have you been bothered by any of the following problems? 1. Little interest or pleasure in doing things: more than half the days 2. Feeling down, depressed, or hopeless: more than half the days 3. Trouble falling or staying asleep, or sleeping too much: not at all 4. Feeling tired or having little energy: nearly every day 5. Poor appetite or overeating: not at all 6. Feeling bad about yourself - or that you are a failure or have let yourself or your family down: not at all 7. Trouble concentrating on things, such as reading the newspaper or watching television: more than half the days 8. Moving or speaking so slowly that other people could have noticed. Or the opposite - being so fidgety or restless that you have been moving around a lot more than usual: several days 9. Thoughts that you would be better off or of hurting yourself in some way: not at all Total score: 10 Depression Screening Interpretation: Positive Depression Screening Done: Yes 74616 - PHQ-9 Billing: Yes Source: Developed by Drs. Umesh Petersen, Eden Gonsalez, Adán Suazo and colleagues, with an educational mynor from [employer]. Thrive Questionnaire Date Thrive assessed: 06/08/24 I am a: Patient What is your living situation today?: I have a steady place to live Within the past 12 months, did the food you bought not last and you didn't have the money to get more?: Never true Within the past 12 months, did you worry whether your food would run out before you got money to buy more?: Never true Do you have trouble paying for medicines?: No Do you have trouble getting transportation to medical appointments?: No Do you have trouble paying your heating and electricity bill?: No Do you have trouble taking care of your child, family member or friend?: No Do you have trouble with day-to-day activities such as bathing, preparing meals, shopping, managing finances, etc.?: No Are you currently unemployed and looking for a job?: No Are you interested in more education?: No Please select the resources that you would like help with: None Currently or been in a relationship where the following occur: No concerns reported THRIVE Score: 0 AUDIT C Alcohol Use Questionnaire (AUDIT-C) 1. How often do you have a drink containing alcohol?: Never 3. How often do you have six or more drinks on one occasion?: Never Total Score: 0 Score Reviewed/Action Taken: No CHANTELL-7 AMB Questionnaire CHANTELL-7 Date CHANTELL - 7 assessed: 06/08/24 Feeling nervous, anxious, or on edge: 3 = Nearly every day Not being able to stop or control worryin = More than half the days Worrying too much about different things: 2 = More than half the days Trouble relaxin = More than half the days Being so restless that it is hard to sit still: 3 = Nearly every day Becoming easily annoyed or irritable: 2 = More than half the days Feeling afraid as if something awful might happen: 3 = Nearly every day Total CHANTELL-7 score (0-4 normal; 5-9 mild; 10-14 moderate; 15-21 severe): 17 Source: Developed by Drs. Umesh Petersen, Eden Gonsalez, Adán Suazo and colleagues, with an educational mynor from [employer]. CHANTELL-7 Assessment Billing CHANTELL-7 Assessment Tool: CHANTELL-7 Assessment 79254 Review of Systems Const Reports headache(s) and Reports weakness ENT Reports otalgia, Reports headache(s), Reports nasal congestion, Denies sore throat and Reports other (sneezing) Card Denies chest pain, Denies leg edema, Denies lightheadedness and Reports dyspnea (chest tightness) Resp Denies cough, Denies hemoptysis and Reports dyspnea (chest tightness) GI Denies abdominal pain, Denies melena, Denies constipation, Denies diarrhea and Denies vomiting Denies urinary frequency, Denies dysuria and Denies urinary urgency Musc Denies arthralgias and Denies joint swelling Neuro Reports headache(s) and Reports weakness Physical exam (Primary Care) Tobacco/Smoking Status: Tobacco use Status Tobacco use date assessed 06/08/24 06/08/24 14:47 Patient Tobacco Use Status Former Tobacco user 06/08/24 14:47 e-Cigarette/Vaping Use Never Used 06/08/24 14:47 PHQ-9: PHQ-9 Score PHQ-9: Total score 10 06/08/24 15:16 Depression Screening Interpretation: Positive Thrive Assessment: Date of Thrive Assessment Date Thrive assessed 06/08/24 06/08/24 14:47 Currently or been in a relationship where the following occur: No concerns reported Const Other: Telemedicine visit with real time audio video Received verbal consent given by patient for today's visit via telemedicine Physical examination is not performed as visit / consultation today is done over videoconference - Telehealth visit All physical findings indicated here, if present, are as per patient's and / or caregivers / proxy's report and visual inspection over videoconference, if appropriate or applicable Telehealth Telehealth Telehealth Platform: Telephone Location of provider rendering services: practice address Location of patient: address on file Patient Identification confirmed using: Name, : Yes Telehealth method: voice only Patient verbally consented to treatment: Yes Patient verbally consented to billing insurance company: Yes Patient informed of any privacy concerns related to visit: Yes Minutes spent on Phone/Video with Pt.: 16 Coding Level of Care Code Tele Est Pt Level 3 (35158) Diagnoses Upper respiratory tract infection, unspecified type J06.9 URI type: unspecified URI Additional Codes CHANTELL-7 Assessment Billing - CHANTELL-7 Assessment Tool: CHANTELL-7 Assessment 96210 ([id number]) PHQ-9 - 18453 - PHQ-9 Billing: Yes ([id number]) Time Spent (min) 29 Assessment & Plan Assessment & Plan (1) Upper respiratory infection: Code(s): J06.9 - Acute upper respiratory infection, unspecified Category: Medical Qualifiers: URI type: unspecified URI Qualified Code(s): J06.9 - Acute upper respiratory infection, unspecified Plan: Augmentin 1 tab b.i.d. x10 days and prednisone tapered ordered. Medications: New amoxicillin-pot clavulanate 875-125 mg please send the medication duy 1 tab PO BID 20 tabs 0RF 10 days J06.9 - Acute upper respiratory infection, unspecified prednisone see taper instructions 4 tabs x 2 days, 3 tabs 2 x days, 2 tabs x 2 days, 1 tab x 2 days = 20 tabs for 8 days Please send the medication duy 10 mg PO DIRECTED 20 tabs 0RF J06.9 - Acute upper respiratory infection, unspecified
== END 2024-06-08 15:23 | disposition home or self-care (01) ==
LOC: HO.HMCH 14:41
PROVIDERS: PCP Internal Medicine
DX: J06.9 Acute upper respiratory infection, unspecified (principal)

== ENCOUNTER → 2024-06-08 14:41 | Outpatient (BNVA) | payer MEDICARE, SELFPAY | PROVIDERS: PCP Internal Medicine | DX: J06.9 Acute upper respiratory infection, unspecified (principal) | CPT/HCPCS: 96127 ==

== ENCOUNTER 2024-07-07 14:47 | Outpatient (AMB) | payer MEDICARE, SELFPAY ==
[2024-07-07 14:58] VITALS: BP 122/78; PULSE 75; O2SAT 95; BMI 16.7
--- NOTE | 2024-07-07 14:58 | A.OFFPC_ITS ---
Vital Signs 07/07/24 14:58 Height 5 ft 6 in Weight 103 lb 4 oz BMI 16.7 BP 122/78 Blood Pressure Location Lt brachial Position Sitting Pulse 75 Pulse Source Pulse Oximeter Pulse Oximetry (%) 95 Oxygen Delivery Method Room Air Intake Visit Reasons: 4 month f/u Excel Analyst Required: No Accompanied by: Self / Same As Patient Allergies morphine [Morphine] Allergy (Severe, Verified 07/07/24 15:30) VOMITING/HALLUCINATIONS codeine [Codeine] Allergy (Intermediate, Verified 07/07/24 15:30) VOMITING/HALLUCINATIONS, nause/extended abdomen latex Allergy (Unknown, Verified 07/07/24 15:30) Unknown atorvastatin Adverse Reaction (Intermediate, Verified 07/07/24 15:30) fever, chills, abd pain, numbness capsaicin [CAPSAICIN] Adverse Reaction (Intermediate, Verified 07/07/24 15:30) BURNING bacitracin Allergy (Intermediate, Uncoded 07/07/24 15:30) redness and itching adhesives Allergy (Mild, Uncoded 07/07/24 15:30) rash Medication List - Last Reconciled 07/07/24 by Espinoza Santiago MD albuterol sulfate 90 mcg/actuation 2 puffs PO Q6H PRN aspirin 81 mg PO DAILY 90 days cholecalciferol (vitamin D3) 25 mcg PO DAILY 90 days clonazepam 1 mg PO BEDTIME PRN 30 days clonazepam 0.5 mg PO BID PRN 30 days clopidogrel 75 mg PO DAILY duloxetine 30 mg PO BID fluticasone propionate 50 mcg/actuation 2 sprays intranasal DAILY PRN fluticasone propionate 110 mcg/actuation 1 puff PO BID NS inhalational spacing device (Aerochamber MV spacer) Use with respiratory inhaler as directed lamotrigine 200 mg PO DAILY 30 days memantine 5 mg PO BID 90 days sertraline 50 mg PO DAILY 90 days simvastatin 20 mg PO BEDTIME topiramate 25 mg PO BEDTIME trazodone 100 mg PO DAILY 90 days Tobacco use date assessed: 07/07/24 Fall risk assessment: No Falls in past year Last assessed Fall Risk: 07/07/24 Dental Screening Dental Screen Date: 07/07/24 Did you have a dental visit in the last 12 months?: No Did you have a dental problem in the last 6 months where you did not have access to dental care?: No Was dental information given to patient?: No HPI 4 month f/u HPI Details Patient comes in today for her follow-up visit States that she feels okay She denies any headaches or dizziness Denies any chest pains, no increased shortness of breath but she continues to have a recurrent cough ever since she came down with a cold last month She was seen here for her respiratory symptoms last month and was started on Augmentin and oral Prednisone taper, which patient finished States that her symptoms improved with Rx but her cough has not really cleared up completely and lately, states that she has a hard time coughing up some phlegm that she feels is stuck in her chest No nausea/vomiting, no abdominal pain No change in bowel habits noted Patient was not able to get her follow-up labs done prior to her appointment today - states that she will try to get these done [facility] Medical History Vitamin D deficiency TIA (transient ischemic attack) Seizure Alzheimer's dementia Anxiety Insomnia Osteoporosis Anemia Gait abnormality Partial symptomatic epilepsy with complex partial seizures, not intractable, without status epilepticus Asthma Pure hypercholesterolemia Peripheral arterial disease Unsteady gait Neuropathy Benign essential hypertension Alcoholism in remission Exertional dyspnea Surgical History Status post insertion of nerve stimulator Hx of foot surgery Hx of nasal septoplasty History of esophagogastroduodenoscopy (EGD) H/O colonoscopy History of angioplasty History of partial gastrectomy History of cholecystectomy History of cataract surgery History of hysterectomy History of tubal ligation S/P excision of neuroma Family History Father CVD (cardiovascular disease) Heart disease Hypertension Stroke Mother CVD (cardiovascular disease) Heart disease Asthma Maternal Grandmother No problems noted. Maternal Grandfather No problems noted. Paternal Grandmother No problems noted. Paternal Grandfather No problems noted. Maternal Aunt Tongue cancer Social History Household Members: None Housing: Assisted Living Facility Are you a primary home care liaison to a significant other at home: No Do you presently have visiting nurse or other home services: No Alcohol intake: former Comment: NA Patient Tobacco Use Status: Former Tobacco user e-Cigarette/Vaping Use: Never Used Second Hand Smoke Exposure: No Advance Directives Date on File: 06/12/21 service: No Current occupational status: retired Cognitive needs: No Hearing needs: No Vision needs: Yes Questionnaire PHQ-9 Over the last 2 weeks, how often have you been bothered by any of the following problems? 1. Little interest or pleasure in doing things: more than half the days 2. Feeling down, depressed, or hopeless: more than half the days 3. Trouble falling or staying asleep, or sleeping too much: not at all 4. Feeling tired or having little energy: nearly every day 5. Poor appetite or overeating: not at all 6. Feeling bad about yourself - or that you are a failure or have let yourself or your family down: not at all 7. Trouble concentrating on things, such as reading the newspaper or watching television: more than half the days 8. Moving or speaking so slowly that other people could have noticed. Or the opposite - being so fidgety or restless that you have been moving around a lot more than usual: several days 9. Thoughts that you would be better off or of hurting yourself in some way: not at all Total score: 10 Depression Screening Interpretation: Positive Depression Screening Follow-up: Existing condition and In treatment Depression Screening Done: Yes 93525 - PHQ-9 Billing: Yes Source: Developed by Drs. Umesh Petersen, Eden Gonsalez, Adán Suazo and colleagues, with an educational mynor from [employer]. Thrive Questionnaire Date Thrive assessed: 07/07/24 I am a: Patient What is your living situation today?: I have a steady place to live Within the past 12 months, did the food you bought not last and you didn't have the money to get more?: Never true Within the past 12 months, did you worry whether your food would run out before you got money to buy more?: Never true Do you have trouble paying for medicines?: No Do you have trouble getting transportation to medical appointments?: No Do you have trouble paying your heating and electricity bill?: No Do you have trouble taking care of your child, family member or friend?: No Do you have trouble with day-to-day activities such as bathing, preparing meals, shopping, managing finances, etc.?: No Are you currently unemployed and looking for a job?: No Are you interested in more education?: No Please select the resources that you would like help with: None Currently or been in a relationship where the following occur: No concerns reported THRIVE Score: 0 AUDIT C Alcohol Use Questionnaire (AUDIT-C) 1. How often do you have a drink containing alcohol?: Never 3. How often do you have six or more drinks on one occasion?: Never Total Score: 0 Score Reviewed/Action Taken: Yes CHANTELL-7 AMB Questionnaire CHANTELL-7 Date CHANTELL - 7 assessed: 07/07/24 Feeling nervous, anxious, or on edge: 3 = Nearly every day Not being able to stop or control worryin = More than half the days Worrying too much about different things: 2 = More than half the days Trouble relaxin = More than half the days Being so restless that it is hard to sit still: 3 = Nearly every day Becoming easily annoyed or irritable: 2 = More than half the days Feeling afraid as if something awful might happen: 3 = Nearly every day Total CHANTELL-7 score (0-4 normal; 5-9 mild; 10-14 moderate; 15-21 severe): 17 Source: Developed by Drs. Umesh Petersen, Eden Gonsalez, Adán Suazo and colleagues, with an educational mynor from [employer]. CHANTELL-7 Assessment Billing CHANTELL-7 Assessment Tool: CHANTELL-7 Assessment [id number] Review of Systems Const Denies chills, Denies fatigue, Denies fever(s) and Denies headache(s) ENT Denies dysphagia, Denies dizziness, Denies otalgia, Denies headache(s), Reports neck pain (chronic - better controlled since SCS implant last year), Denies odynophagia and Denies sore throat Card Denies chest pain, Denies palpitations and Denies dyspnea Resp Reports chest congestion (at times - feels like her phlegm is stuck in her chest ), Reports cough (on and off), Denies dyspnea and Denies wheezing GI Denies abdominal pain, Denies constipation, Denies dysphagia, Denies heartburn, Denies diarrhea, Denies nausea, Denies odynophagia and Denies vomiting Denies difficulty voiding, Denies nocturia, Denies dysuria and Denies urinary urgency Musc Details: (+)recurrent pain over both lower legs Reports abnormal gait (unsteady), Reports arthralgias (right shoulder, on and off - states that has also improved a lot lately) and Reports neck pain (chronic - better controlled since SCS implant last year) Skin/Breast Denies rash Neuro Reports abnormal gait (unsteady), Denies behavioral changes, Denies dizziness, Denies headache(s) and Reports memory loss Psych Reports anxiety, Denies behavioral changes and Reports memory loss Endo Denies fatigue and Denies palpitations Aller/Immun Denies wheezing Physical exam (Primary Care) Vital Signs: Last Vital Signs Pulse 75 07/07/24 14:58 BP 122/78 07/07/24 14:58 Pulse Ox 95 07/07/24 14:58 Oxygen Delivery Method Room Air 07/07/24 14:58 BMI result Body Mass Index 16.7 Tobacco/Smoking Status: Tobacco use Status Tobacco use date assessed 07/07/24 07/07/24 15:09 Patient Tobacco Use Status Former Tobacco user 07/07/24 15:00 e-Cigarette/Vaping Use Never Used 07/07/24 15:00 PHQ-9: PHQ-9 Score PHQ-9: Total score 10 07/07/24 15:41 Depression Screening Interpretation: Positive Depression Screening Follow-up: Existing condition and In treatment Thrive Assessment: Date of Thrive Assessment Date Thrive assessed 07/07/24 07/07/24 15:09 Currently or been in a relationship where the following occur: No concerns reported Const General: no acute distress and alert HENMT Ears: TM's normal bilaterally and EAC's normal Throat: Yes posterior oropharynx normal and Yes tonsils normal (no TP congestion) Neck Neck: No lymphadenopathy and Yes tender (over the cervical spine and paraspinal areas bilaterally, mild) Thyroid: Thyroid normal Resp Auscultation: clear to auscultation bilaterally, no rales, rhonchi (occasional) throughout, no wheezes and diminished lung sounds (slightly) bilateral Cardio Rate: regular rate Rhythm: regular rhythm Heart sounds: no murmurs GI Palpation (GI): Soft to palpation and nontender Auscultation: normal bowel sounds Back/Spine/Pelvis Cervical Spine: cervical muscular tenderness and Cervical spine tenderness (mild) Thoracic/Lumbar Spine: No thoracic spinal tenderness Skin Rashes: no rashes Neuro General: no focal motor deficits Extrem General: Yes no clubbing, cyanosis or edema Coding Level of Care Code Est Pt Level 4 (11105) Diagnoses Degenerative disc disease, cervical M50.30 Migraine without status migrainosus, not intractable, unspecified migraine type G43.909 Migraine type: unspecified Status migrainosus presence: without status migrainosus Intractability: not intractable Benign essential hypertension I10 Pure hypercholesterolemia E78.00 Impaired fasting glucose R73.01 Anemia, unspecified type D64.9 Anemia type: unspecified type Neuropathy G62.9 Mild Alzheimer's dementia without behavioral disturbance, psychotic disturbance, mood disturbance, or anxiety, unspecified timing of dementia onset G30.9; F02.A0 Alzheimer's disease onset: unspecified onset Dementia severity: mild Dementia behavioral or psychological symptom: without behavioral, psychotic, or mood disturbance or anxiety Peripheral arterial disease I73.9 Moderate persistent asthma without complication J45.40 Asthma severity: moderate Asthma persistence: persistent Asthma complication type: uncomplicated Partial symptomatic epilepsy with complex partial seizures, not intractable, without status epilepticus G40.209 Age-related osteoporosis without current pathological fracture M81.0 Osteoporosis type: age-related Presence of current pathological fracture: without current pathological fracture Vitamin D deficiency E55.9 Insomnia, unspecified type G47.00 Insomnia type: unspecified Anxiety F41.9 Additional Codes CHANTELL-7 Assessment Billing - CHANTELL-7 Assessment Tool: CHANTELL-7 Assessment 09818 ([id number]) PHQ-9 - 25306 - PHQ-9 Billing: Yes ([id number]) Assessment & Plan Assessment & Plan (1) Degenerative disc disease, cervical: Code(s): M50.30 - Other cervical disc degeneration, unspecified cervical region Category: Medical Plan: S/P spinal cord implantation by pain management on 01/29/2023, with significant improvement of her neck pain since Patient states that she has no perceived pain at all over her neck lately and is very happy with the outcome of her interventional procedure Follow up with pain management as scheduled (2) Migraine: Code(s): G43.909 - Migraine, unspecified, not intractable, without status migrainosus Category: Medical Qualifiers: Migraine type: unspecified Status migrainosus presence: without status migrainosus Intractability: not intractable Qualified Code(s): G43.909 - Migraine, unspecified, not intractable, without status migrainosus Plan: Reinforced avoidance of potential migraine triggers Her headaches were controlled on prophylactic Tx but patient states that she hardly had any migraine headaches since her spinal cord implantation for her neck pain so it is likely that her previous neck pains were also a trigger for her migraines Continue Topiramate 25 mg Q HS (3) Benign essential hypertension: Code(s): I10 - Essential (primary) hypertension Category: Medical Plan: Reinforced low sodium diet - goal is systolic BP of at least 130 to 140 mm or less She used to take Losartan 50 mg QD and Clonidine 0.1 mg TID for her blood pressure but she does not appear to need any Rx for her BP lately She is reminded to continue monitoring her blood pressure regularly (4) Pure hypercholesterolemia: Code(s): E78.00 - Pure hypercholesterolemia, unspecified Category: Medical Plan: Patient was not able to get her follow-up labs done prior to her appointment today - states that she will try to get these done LEWIS Reinforced low cholesterol diet Continue Simvastatin 20 mg QD Will recheck her labs and fasting lipids in 4 months for follow up (5) Impaired fasting glucose: Code(s): R73.01 - Impaired fasting glucose Category: Medical Plan: Patient's FBS was slightly high at 108 mg/dl on her labs done a few months ago; her in-office HgbA1c was normal at 5.1% when last checked in July 2023 Reinforced low calorie/low carb diet (6) Anemia: Code(s): D64.9 - Anemia, unspecified Category: Medical Qualifiers: Anemia type: unspecified type Qualified Code(s): D64.9 - Anemia, unspecified Plan: Her H/H is again low at 10.4/33.6 on her labs done a few months ago in January 2024 S/P parenteral iron therapy in June 2021; she has taken iron tablets in the past but could not tolerate Rx due to severe constipation Will continue to monitor her CBC regularly Follow up with hematology as scheduled (7) Neuropathy: Comment: NCV done in 2019 - sees Dr. Robbins Code(s): G62.9 - Polyneuropathy, unspecified Category: Medical Plan: NCV done in 2019 revealed (+) sensory, motor and axonal peripheral neuropathy Follow up with neurology as scheduled She was on Gabapentin 100 mg at bedtime in the past but currently does not appear to be on anything for neuropathy (8) Alzheimer's dementia: Code(s): G30.9 - Alzheimer's disease, unspecified; F02.80 - Dementia in other diseases classified elsewhere, unspecified severity, without behavioral disturbance, psychotic disturbance, mood disturbance, and anxiety Category: Medical Qualifiers: Alzheimer's disease onset: unspecified onset Dementia severity: mild Dementia behavioral or psychological symptom: without behavioral, psychotic, or mood disturbance or anxiety Qualified Code(s): G30.9 - Alzheimer's disease, unspecified; F02.A0 - Dementia in other diseases classified elsewhere, mild, without behavioral disturbance, psychotic disturbance, mood disturbance, and anxiety Plan: Patient was diagnosed by neurology last year and started on Memantine 5 mg BID Follow up with neurology as scheduled (9) Peripheral arterial disease: Code(s): I73.9 - Peripheral vascular disease, unspecified Category: Medical Plan: Symptoms have improved significantly following balloon angioplasty of bilateral lower extremities a couple of years ago Continue Clopidogrel 75 mg once a day Follow-up with vascular surgery (Dr. Marquez) as scheduled (10) Asthma: Code(s): J45.909 - Unspecified asthma, uncomplicated Category: Medical Qualifiers: Asthma severity: moderate Asthma persistence: persistent Asthma complication type: uncomplicated Qualified Code(s): J45.40 - Moderate persistent asthma, uncomplicated Plan: She appears to still be experiencing some flare up of her asthma at present, likely from her bout with URI last month Continue Flovent HFA 110 mcg 1 puff BID and Ventolin HFA 2 puffs 4 times a day as needed for now Will send patient for chest x-rays for further evaluation Will start her additionally for now on Mucinex ER 600 mg Q 12 hours PRN for her cough, to help loosen up her phlegm and make it easier for her to cough up her chest secretions (11) Partial symptomatic epilepsy with complex partial seizures, not intractable, without status epilepticus: Code(s): G40.209 - Localization-related (focal) (partial) symptomatic epilepsy and epileptic syndromes with complex partial seizures, not intractable, without status epilepticus Category: Medical Plan: Stable with no recent recurrence - EEG, head CT and carotid doppler done previously all came back normal Continue Lamotrigine 200 mg QD Follow-up with Neurology as scheduled or as needed (12) Osteoporosis: Code(s): M81.0 - Age-related osteoporosis without current pathological fracture Category: Medical Qualifiers: Osteoporosis type: age-related Presence of current pathological fracture: without current pathological fracture Qualified Code(s): M81.0 - Age- related osteoporosis without current pathological fracture Plan: Repeat BMD done on 07/17/2021 revealed (+) osteoporosis based on the lowest T- score value of -2.6 in the lumbar spine Her BMD in the AP spine has declined 10.8% from previous and BMD in the left femur has also declined from previous but only by 1.3% Fall precautions reinforced Have considered referring her to endocrinology for further evaluation and management, given her age, but patient asked to hold off for now Have also offered to start her on oral bisphosphonates but after hearing about their potential side effects, patient declined Rx (13) Vitamin D deficiency: Code(s): E55.9 - Vitamin D deficiency, unspecified Category: Medical Plan: Continue Vitamin D3 1000 units QD (14) Insomnia: Code(s): G47.00 - Insomnia, unspecified Category: Medical Qualifiers: Insomnia type: unspecified Qualified Code(s): G47.00 - Insomnia, unspecified Plan: Sleep hygiene reinforced Continue Trazodone 100 mg Q HS PRN (15) Anxiety: Code(s): F41.9 - Anxiety disorder, unspecified Category: Medical Plan: Continue Sertraline 50 mg QD - patient states that her Rx has helped with her anxiety a lot Plan Follow up in 4 months Orders: Orders XR chest 2V 07/07/24 J98.8 - Other specified respiratory disorders Medications: New guaifenesin ER (Mucinex) 600 mg PO Q12H PRN 60 tabs 1RF cough
--- OUTSIDE RECORDS SUMMARY | 2024-07-07 14:58 | XMS_ITS ---
Author Organization [facility] Address [address] [place] [address] Care Team Providers Care Light Bulb Assembler Name Role Phone Jcak HYLTON, Espinoza Primary Care Provider UnaUmesh Ordaz Unavailable [phone] BISHNU MCMULLEN Unavailable Unavailable REASON FOR VISIT Patient presents today for a F/U after removal of flat polyp Encounters Encounter Location Date Provider Diagnosis [facility] [address] [place] [phone] 06/21/2024 Umesh Ellsworth Plan Of Treatment No Information Progress Notes * MARILIN NERIISDOB: 6 (79 yo F)Acc No.[id number]:06/21/2024 Progress Notes Patient:?KRISSY NERI Provider:?Umesh Ellsworth MD :1945???Age:79 Y???Sex:Female D ate:06/21/2024 Address:[address] [place], [place] [phone] Pcp:Espinoza Santiago MD Subjective: * Chief Complaints: * ???1. Patient presents today for a F/U after removal of flat polyp. * Medical History:? Objective: * Vitals:? Assessment: Plan: * Treatment: * * The named appointment provid er may or may not be the originator of this progress note, and it is not deemed complete until electronically signed by the appointment provider. Sign off status: Pending * Provider:?Umesh Ellsworth MD Date:? 025 Generated for Cynthia mckeon/Michael/Ida on:?07/07/2024 02:58 PM EDT
--- OUTSIDE RECORDS SUMMARY | 2024-07-07 14:58 | XMS_ITS | Patient Health Record ---
[facility] Organization [facility] Address [address] [place] [address] Care Team Providers Care Pipe Organ Mechanic Name Role Phone Eron Santiago MDneth Primary Care Provider Ike Wolfe Unavailable [phone] Allergies Allergen (clinical drug ingredient) Drug/Non Drug Allergy documented on EMR Reaction Allergy Type Onset Date Status capsaicin Capsaicin severe pain Drug Allergy Activ e Adhesive Tape removes skin Drug Allergy Active Latex Unknown Drug Allergy Active morphine Morphine Unknown Drug Allergy Active Reason For Referral No Information Medications Medication SIG (Take, Route, Frequency, Duration) Notes Start Date End Date Status clonazePAM Active traZODone HCl 50 MG Orally Active cloNIDine HCl 0.1 MG 1 tablet at bedtime Orally Once a day Active tiZANidine HCl Activ e Cyclobenzaprine HCl Active Zocor Active Clopidogrel Bisulfate Active Ventolin HFA 108 (90 Base) MCG/ACT Inhalation Active Losartan Potassium 50 MG Orally Active Simvastatin Active Meclizine HCl 25 MG 3 tablet Orally Once a day Active Flovent HFA 110 MCG/ACT 1 puff Inhalatio n Twice a day Active DULoxetine HCl 30 MG Orally Once a day Active OXcarbazepine Not-Ta saad lamoTRIgine 200 MG Orally Once a day Active Fluticasone Propionate Active Social History Tobacco Use: Social History Observation Description Date Details (start date - stop date) Former Smoker NA - 03/22/1987 Tobacco Use/Smoking Question Answer Notes Are you a: former smoker When did you stop smoking? 03/22/1987 Additional Findings: Tobacco Non-User Current no n-smoker Alcohol Screen Question Answer Notes Did you have a drink containing alcohol in the p ast year? No Points 0 Interpretation Negative Tobacco use other than smoking: Question Answer Notes Are you an other tobacco user? No Problems Problem Type SNOMED Code ICD Code Onset Dates Problem Status W/U Status Risk Notes Problem Localized, primary osteoarthritis of the ankle and/or foot (129457245) Primary osteoarthrit is, right ankle and foot (M19.071) Active confirmed Problem Localized, primary osteoarthritis of the ankle and/or foot (579521358) Primary osteoarthrit is, left ankle and foot (M19.072) Active confirmed Problem Acquired hammer toe of right foot (6196856168581477) Other hammer toe(s) (acquired), right foot (M20.41) Active confirmed Problem Acquired hammer toe of left foot (9194867944416212) Other hammer toe(s) (acquired), left foot (M20.42) Active confirmed Plan Of Treatment Pending Test Test Name Order Date X ray : Foot, left 2V 01/17/2018 X ray : Foot, left 2V 01/31/2018 X ray : Foot, left 3V 03/02/2018 X ray : Foot, left 3V 08/02/2017 X ray : Foot, left 3V 11/24/2017 X ray : Foot, left 3V 06/08/2018 X ray : Foot, left 3V 01/03/2018 X ray : Foot, left 3V 10/28/2017 X ray : Foot, right 3V 08/02/2017 [id number], [id number], JOINT/BURSA 0 08/30/2017 [id number], [id number], JOINT/BURSA 1 2017 00276- Unna Boot 11/24/2017 Insurance Providers Payer Name Payer Address Payer Phone Subscriber Number Group Number Insured Name Patient Relationship to Insured Coverage Start Date Coverage End Date Medicare National [employer] [address] [place] [address] [id number] Cary Davis Self - patient is the insured 1 [employer] [address] [place] [address] [phone] [id number] Cary Davis Self - patient is the insured Medical (General) History Medical History History ICD Code Anemia Anxiety osteoarthritis asthma Cholesterol Cancer Crohns disease Depression Gall bladder problems Glaucoma Hiatal hernia High blood pressure Osteoporosis Poor circulation Reflux ( GERD) Sciatica chronic sinusitis Stomach ulcer TIA Vascular phlebitis (clots) Measles Chicken pox Mumps Transfusions A fib Vascular disease Surgical History Surgery Date(Month/Year) leg surgery clots removed 03/24/17 HT L3rd toe 01/14/2018 Hospitalization History Reason Date(Month/Year) Juanis Bilateral Blot Clots in the legs 0 03/2017 [facility] dizziness, nausea, drive hieves, deh ydration 09/27/2017 [facility] L3rd toe 01/14/2018 [facility] leg pain blood clots / Afib 20 21
--- OUTSIDE RECORDS SUMMARY | 2024-07-07 14:59 | XMS_ITS | Clinical Summary ---
Author Organization [address] [facility] Address [address] [place] [address] Phone Care Team Providers Care Charging Board Operator Name Role Phone Espinoza Santiago MD Primary Care Provider [phone] Allergies Active Allergy Reactions Criticality Noted Date Comments Adhesive Tape-Silicones Rash 01/27/2019 Capsaicin 01/27/2019 Codeine Hallucinations 01/27/2019 Medications DULoxetine (CYMBALTA) [address] capsule Take 30 mg by mouth daily. Active fluticasone HFA (FLOVENT HFA) 110 mcg/actuation inhaler Inhale 1 Puff into the lungs 2 times daily. Active cloNIDine (CATAPRES) 0.1 mg tablet Take 3 Tabs by mouth 3 times daily. Active glucosamine/michelle droitin/C/Erik (GLUCOSAMINE 1500 COMPLEX ORAL) Take 1 Tab by mouth daily. Active fluticasone propionate (FLONASE) 50 mcg/actuation nasal spray 1 Dillon by Each Nare route daily. Active clopidogreL (PLAVIX) 75 mg tablet Take 1 tablet (75 mg total) by mouth 1 (one) time each day. Active cetirizine (ZyrTEC) 10 mg tablet Take 1 tablet (10 mg total) by mouth 1 (one) time each day. Active simvastatin (ZOCOR) 20 mg tablet Take 1 Tab by mouth at bedtime. Active calcium carbonate (CALCIUM ORAL) Take 1 Tab by mouth daily. 2000 mg Active cholecalciferol (VITAMIN D-3) 25 mcg (1,000 unit) capsule Take 2 Caps by mouth daily. Active clonazePAM (KlonoPIN) 0.5 mg tablet Take 1 Tab by mouth 3 times daily. Active losartan (COZAAR) 50 mg tablet Take 1 tablet (50 mg total) by mouth 1 (one) time each day. Active meclizine (ANTIVERT) 25 mg tablet Take 1 Tab by mouth 3 times daily. Active multivitamin (MULTIPLE VITAMINS ORAL) Take 1 Tab by mouth daily. Active hgpxd-ep-3-dha-e lh-nvhtjyh-fst (MegaRed [place]-3 Krill Oil) 278-51-51-50 mg capsule Take 1 Cap by mouth daily. Active vitamin B complex vit C no.4 (SUPER B COMPLEX + C ORAL) Take 1 Tab by mouth daily. Active lamoTRIgine (LaMICtal) 200 mg tablet Take 1 tablet (200 mg total) by mouth 1 (one) time each day. Active Active Problems Problem Noted Date Diagnosed Date Spinal cord stimulator status 06/26/2024 Allergies 01/18/2024 Anxiety 01/18/2024 Bilateral carotid artery stenosis 01/18/2024 Depression 01/18/2024 Hypertension 01/18/2024 Lumbar back pain 01/18/2024 PVD (peripheral vascular disease) (CMS/FORMERLY [facility] V24) 01/18/2024 Varicose veins of bilateral lower extremities wi th pain 01/18/2024 Encounters Date Type Department Care Team Description 07/06/2024 Telephone Vascular Surgery - [place] [address] [place] [phone] Maritza Webber PA Provider Call Back 06/26/2024 3:55 PM EDT - 06/26/2024 11:59 PM EDT Hospital Encounter [facility] [address] [place] [phone] Lumbar back pain Discharge Disposition: Home or Self Care 06/26/2024 3:00 PM EDT Office Visit Vascular Surgery - [place] [address] [place] [phone] Maritza Webber PA PAD (peripheral artery disease) (CMS/HCC V24) (Primary Dx); Lumbar back pain 05/22/2024 2:45 PM EST Ancillary Procedure [facility] - [address] [place] [phone] Claudication (CMS/HCC V24); PAD (peripheral artery disease) (CMS/HCC V24) from Last 3 Months Surgical History Surgery Date Site/Laterality Comments ANGIOPLASTY Bilateral PROCEDURE: HISTORICAL ANGIOPLASTY OTHER SURGICAL HISTORY 09/01/2022 PROCEDURE: CT SLCTV CATHJ 3RD+ ORD SLCTV ABDL PEL/LXTR BRNCH OTHER SURGICAL HISTORY 09/01/2022 PROCEDURE: CT SLCTV CATHJ EA 2ND+ ORD ABDL PEL/LXTR ART BRNCH OTHER SURGICAL HISTORY 09/01/2022 PROCEDURE: X-RAY EXAM OF ARM/LEG ARTERIES OTHER SURGICAL HISTORY 09/01/2022 PROCEDURE: X-RAY EXAM OF PELVIC ARTERIES OTHER SURGICAL HISTORY 09/01/2022 PROCEDURE: ULTRASOUND GUIDANCE FOR VASCULAR AC Medical History Medical History Date Comments PVD (peripheral vascular dis ease) ([facility] V24) DX:PVD (peripheral vascular disease) (FORMER[facility]) Varicose veins of bilateral lower extremities with pain DX:Varicose veins of bilater al lower extremities with pain Bilateral carotid artery stenosis DX:Bilateral carotid artery stenosis Lumbar back pain DX:Lumbar back pain Anxiety DX:Anxiety Depression DX:Depression Hypertension DX:Hypertension Allergies DX:Allergies Social History Tobacco Use Types Packs/Day Years Used Date Smoking Tobacco: Former Cigarettes Q uit: 01/28/1988 Smokeless Tobacco: Never Comments Unknown Sex and Gender Information Value Date Recorded Sex Assigned at Not on file Legal Sex Female 9:25 PM EST Gender Identity Not on file Sexual Orientation Not on file Obstetrics History Last Filed Vital Signs Vital Sign Reading Time Taken Comments Blood Pressure 154/75 06/26/2024 3:03 PM EDT Pulse 80 06/26/2024 3:03 PM EDT Temperature - - Respiratory Rate - - Oxygen Saturation - - Inhaled Oxygen Concentration - - Weight 46.3 kg (102 lb) 06/26/2024 3:03 PM EDT Height 167.6 cm (5' 6 ) 06/26/2024 3:03 PM EDT Body Mass Index 16.46 06/26/2024 3:03 PM EDT Plan of Treatment Upcoming Encounters Date Type Department Care Team (Late st Contact Info) Description 05/18/2025 1:30 PM EST Ancillary Procedure [facility] - [address] [place] [address] 06/28/2025 3:00 PM EDT Office Visit Vascular Surgery - [place] [address] [place] [phone] Maritza Webber PA [address] [facility] [address] [place] [address] Health Maintenance Due Date Last Done Comments Hepatitis A Vaccines (1 of 2 - Risk 2-dose series) 1964 Cholesterol Screening (Lipid Panel) 02/28/2022 Depression Screening 02/28/2022 Falls Risk Assessment 02/28/2022 Hepatitis C Screening 02/28/2022 Medicare Annual Wellness Visit 02/28/2022 Osteoporosis Screening (Bone Density Screening) 02/28/2022 Social Influencers of Health Screening 02/28/2022 Hypertension/CHF/CAD Annual BMP Blood Test 03/07/2022 COVID-19 Vaccine ( season) 2024 11/22/2023, 06/29/2023, 12/27/2022, Additional history exists DTaP,Tdap,and Td Vaccines (2 - Td or Tdap) 03/10/2026 03/10/2016 Zoster Vaccines Completed 11/05/2018, 07/20, 06/22/2012 Pneumococcal Vaccine: 50+ Years Completed 03/06/2022, 08/05/2018 RSV Immunization Adult Patients Completed 02/26/2023 Influenza Vaccine Completed 11/22/2023, , 01/13/2022, Additional history exists HIB Vaccines Aged Out No longer eligi ble based on patient's age to complete this topic HPV Vaccines Aged Out No longer eligi ble based on patient's age to complete this topic Hepatitis B Vaccines Aged Out No long er eligible based on patient's age to complete this topic IPV Vaccines Aged Out No longer eligi ble based on patient's age to complete this topic MMR Vaccines Aged Out No longer eligi ble based on patient's age to complete this topic Meningococcal ACWY Vaccine Aged Out N o longer eligible based on patient's age to complete this topic Meningococcal B Vaccine Aged Out No l onger eligible based on patient's age to complete this topic RSV Immunization Patients Under 20 months Aged Out No longer eligible based on patient's age to complete this topic Varicella Vaccines Aged Out No longer eligible based on patient's age to complete this topic Procedures Procedure Name Priority Date/Time Associated Diagnosis Comments XR LUMBAR SPINE 4+ VIEWS Routine 06/26/2024 4:13 PM EDT Lumbar back pain VAS US DUPLEX LOWER EXT ARTERIES BILAT WITH KAYLA Routine 05/22/2024 4:07 PM EST Claudication ([facility] V24) PAD (peripheral artery disease) ([facility] V24) from Last 3 Months Results * XR Lumbar Spine 4+ Views (06/26/2024 4:13 PM EDT) Anatomical Region Laterality Modality Spine, L-spine Radiographic Myra ging 06/29/2024 8:32 AM EDT Impressions 06/29/2024 8:33 AM EDT No acute findings. Grade 1, 5.3 mm anterior spondylolisthesis of L4 relative to L5. There is degenerative disc disease at the L4-5 and L5-S1 levels. Code 29573 -------- FINAL REPORT -------- Dictated By: Walter Fitzpatrick Dictated Date: 06/29/2024 08:32 ET Assigned Physician: Walter Fitzpatrick Reviewed and Electronically Signed By: Walter Fitzpatrick Signed Date: 06/29/2024 08:33 ET Workstation ID: [id number] Transcribed By: Self Edit Transcribed Date: 06/29/2024 08:32 ET Narrative 06/29/2024 8:33 AM EDT HISTORY: The patient is a 79-year-old female with low back pain. No history of trauma is provided. FINDINGS: AP, lateral, and right and left oblique, and coned-down spot lateral views of the lumbosacral spine are obtained. The study demonstrates grade 1, 5.3 mm anterior spondylolisthesis of L4 relative to L5. The alignment of the bony structures is otherwise anatomic. No fracture is seen. There is narrowing of the L4-5 and L5-S1 disc spaces consistent with degenerative disc disease. The remaining disc spaces are well-maintained. There is no evidence of facet joint disease. Atherosclerotic arterial calcification is noted. A pump device is present. Surgical clips are present in the upper abdomen. Procedure Note Walter Fitzpatrick MD - 06/29/2024 HISTORY: The patient is a 79-year-old female with low back pain. Nohistory of trauma is provided. FINDINGS: AP, lateral, and right and left oblique, and coned-down spotlateral views of the lumbosacral spine are obtained. The studydemonstrates grade 1, 5.3 mm anterior spondylolisthesis of L4 relative toL5. The alignment of the bony structures is otherwise anatomic. Nofracture is seen. There is narrowing of the L4-5 and L5-S1 disc spacesconsistent with degenerative disc disease. The remaining disc spaces arewell-maintained. There is no evidence of facet joint disease.Atherosclerotic arterial calcification is noted. A pump device is present. Surgical clips are present in the upperabdomen. IMPRESSION: No acute findings. Grade 1, 5.3 mm anterior spondylolisthesis of X0zetuvwoe to L5. There is degenerative disc disease at the L4-5 and L5-T7dgvhyw. Code 07362 -------- FINAL REPORT -------- Dictated By: Walter Fitzpatrick Dictated Date: 06/29/2024 08:32 ET Assigned Physician: Walter Fitzpatrick Reviewed and Electronically Signed By: Walter Fitzpatrick Signed Date: 06/29/2024 08:33 ET Workstation ID: [id number] Transcribed By: Self Edit Transcribed Date: 06/29/2024 08:32 ET us Maritza DONOHUE IMG XR PROCEDURES Final Resul t * Vascular US duplex lower extremity arteries bilateral with KAYLA (05/22/2024 4:07 PM EST) Left Dist External Iliac PSV 131 cm/s CV VAS LAB Left Prox External Iliac PSV 115 cm/s CV VAS LAB Left AT dist sys PSV 56 cm/s CV VAS LAB Left AT mid sys PSV 96 cm/s CV VAS LAB Left AT prox sys PSV 74 cm/s CV VAS LAB Left HOUSE PAINTER HELPER prox sys PSV 202 cm/s CV VAS LAB Left mid peroneal sys PSV 40 cm/s CV VAS LAB Left popliteal dist sys PSV 90 cm/s CV VAS LAB Left popliteal prox sys PSV 57 cm/s CV VAS LAB Left PT dist sys PSV 18 cm/s CV VAS LAB Left PT mid sys PSV 53 cm/s CV VAS LAB Left PT prox sys PSV 59 cm/s CV VAS LAB Left profunda sys PSV 103 cm/s CV VAS LAB Left super femoral dist sys PSV 77 cm/s CV VAS LAB Left super femoral mid sys PSV 190 cm/s CV VAS LAB Left super femoral prox sys PSV 119 cm/s CV VAS LAB Right Dist External Iliac PSV 231 cm/s CV VAS LAB Right Prox External Iliac PSV 60 cm/s CV VAS LAB Right AT dist sys PSV 30 cm/s CV VAS LAB Right AT mid sys PSV 57 cm/s CV VAS LAB Right AT prox sys PSV 36 cm/s CV VAS LAB Right mid peroneal sys PSV 30 cm/s CV VAS LAB Right popliteal dist sys PSV 52 cm/s CV VAS LAB Right popliteal prox sys PSV 31 cm/s CV VAS LAB Right PT dist sys PSV 12 cm/s CV VAS LAB Right PT mid sys PSV 19 cm/s CV VAS LAB Right PT prox sys PSV 40 cm/s CV VAS LAB Right profunda sys PSV 73 cm/s CV VAS LAB Right super femoral dist sys PSV 120 cm/s CV VAS LAB Right super femoral mid sys PSV 79 cm/s CV VAS LAB Right super femoral prox sys PSV 131 cm/s CV VAS LAB Right arm BP 147 mmHg CV VAS LAB Left arm BP 145 mmHg CV VAS LAB Right posterior tibial 135 mmHg CV VAS LAB Right Dorsalis Pedis 135 mmHg CV VAS LAB Right KAYLA 0.92 CV VAS LAB Left posterior tibial 139 mmHg CV VAS LAB Left Dorsalis Pedis 164 mmHg CV VAS LAB Left KAYLA 1.12 CV VAS LAB Anatomical Region Laterality Modality Vascular, Abdomen Ultrasound Narrative 05/23/2024 12:34 PM EST Right: KAYLA 0.92. ??Decreased amplitude PVR waveform at the ankle. ??Slightly decreased amplitude digit PPG waveform. Severe inflow arterial occlusive disease. 50-99% proximal superficial femoral artery stenosis Three-vessel runoff in the calf. Left: KAYLA 1.12. ??Normal amplitude PVR waveform at the ankle. ??Slight decreased amplitude digit PPG waveform. Mild to moderate inflow arterial occlusive disease. 50-99% proximal superficial femoral artery stenosis Three-vessel runoff in the calf. Right Lower Arterial Duplex The distal external iliac artery has monophasic flow. The common femoral artery has monophasic flow. The profunda femoris artery has monophasic flow. The superficial femoral artery has biphasic flow. The popliteal artery has biphasic flow. The anterior tibial artery has biphasic flow. The posterior tibial artery has monophasic flow. The mid peroneal artery has biphasic flow. Left Lower Arterial Duplex The distal external iliac artery has biphasic flow. The common femoral artery has biphasic flow. The profunda femoris artery has biphasic flow. The superficial femoral artery has biphasic flow. The popliteal artery has biphasic flow. The anterior tibial artery has biphasic flow. The posterior tibial artery has biphasic flow. The mid peroneal artery has biphasic flow. Optomechanical Technician Details A sweeney scale, color and doppler analysis ultrasound was performed. During the study longitudinal views were obtained. Continuous wave doppler and pulsed wave doppler was performed. Overall the study quality was poorly visualized. Study was technically difficult due to: acoustic shadowing. us Baljit Wu MD CV VASCULAR PROCEDURES Final Re sult from Last 3 Months Insurance MEDICARE [place] Advance Directives Documents on File Type Date Recorded Patient Mess Cook Expl anation Health Care Decision (hx) 06/16/2020 AD RENETTA DIRECTIVE Care Teams Charging Board Operator Relationship Specialty Start Date End Date Espinoza Santiago MD [address] [place] [address] [address] [place] PCP - General Internal Medicine 02/15/13
--- OUTSIDE RECORDS SUMMARY | 2024-07-07 14:59 | XMS_ITS | Encounter Summary ---
Author Organization [facility] Address [address] [place] [address] Care Team Providers Care Military Pilot Name Role Phone Espinoza Santiago MD Primary Care Provider [phone] Reason for Visit * Reason Onset Date Comments Provider Call Back 07/06/2024 Encounter Details Date Type Department Care Team ([facility] st Contact Info) Description 07/06/2024 Telephone Vascular Surgery - [place] [address] [place] [phone] Maritza Webber PA [address] [place] [address] Provider Call Back Social History Tobacco Use Types Packs/Day Years Used Date Smoking Tobacco: Former Cigarettes Q uit: 01/28/1988 Smokeless Tobacco: Never Comments Unknown Sex and Gender Information Value Date Recorded Sex Assigned at Not on file Legal Sex Female 9:25 PM EST Gender Identity Not on file Sexual Orientation Not on file documented as of this encounter Progress Notes * Jamshid Leggett MA - 07/06/2024 1:22 PM EDT Spoke with daughter she states patient has alzheimer's, discussed 06/26 she had no questions and will discuss with mother. * Miquel Bailey - 07/06/2024 11:20 AM EDT Patient is calling in regards to her previous appointment on 06/26/24. She is hoping to get a call back as she cannot recall whether or not she was told the results of her ultrasound and how it compares to any previous ultrasound she's had doen. documented in this encounter Plan of Treatment Upcoming Encounters Date Type Department Care Team (Late st Contact Info) Description 05/18/2025 1:30 PM EST Ancillary Procedure [facility] - [address] [place] [address] 06/28/2025 3:00 PM EDT Office Visit Vascular Surgery - [place] [address] [place] [address] Maritza Webber PA [address] [place] [address] documented as of this encounter Visit Diagnoses Not on filedocumented in this encounter Care Teams Military Pilot Relationship Specialty Start Date End Date Espinoza Santiago MD [address] [place] [address] Dr [address] [place], [place] PCP - General Internal Medicine 02/15/13 documented as of this encounter
--- OUTSIDE RECORDS SUMMARY | 2024-07-07 14:59 | XMS_ITS | Patient Health Record ---
Author Organization [facility] Address [address] [place] [address] Care Team Providers Care Electronic Lab Technician Name Role Phone Jack HYLTON, [place] Primary Care Provider Umesh Stephenson Unavailable [phone] BISHNU MCMULLEN Unavailable Unavailable Allergies Allergen (clinical drug ingredient) Drug/Non Drug Allergy documented on EMR Reaction Allergy Type Onset Date Status bacitracin Bacitracin Unknown Drug Allergy Activ e atorvastatin Atorvastatin Unknown Drug Allergy A ctive Adhesive Unknown Allergy Active Codeine Phosphate Unknown Drug Allergy Active capsaicin Capsaicin Unknown Drug Allergy Active morphine Morphine Unknown Drug Allergy Active Latex Latex Unknown Allergy Active Results Component Value Reference Range Notes Pathology Reviewed date:09/05/2023 12:34:46 AM Interpretation: Performing Lab:[facility], [address] [place] [phone] Notes/Report: Name: Krissy Neri Age/Sex: 78/F : 1945 Unit#: [id number] Attend Dr: Umesh Ellsworth Re08/18/23 Status : [facility] Location: [facility] Disch: SPEC : [id number] RECD : 08/18/23-1013 STATUS: ANAM MAI NUM: [id number] PATI: 08/18/2315 [facility] DR: Umesh Ellsworth ENTERED: 08/18/23- 21 SP TYPE: Surgical OTHR DR: Espinoza Santiago MD ORDERED: HE Stain/9, Gross Micro L4/3 Diagnosis A. Colon, proximal a scending, polyp: Tubular adenoma; negative for high-grade dysplasia and carcinoma. B. Colon, transverse , polyp: Tubular adenoma; negative for high-grade dysplasia and carcinoma. C. Colon, transverse , larger polyp: Tubular adenoma; negative for high-grade dysplasia and carcinoma. Clinical History Pre-Op Dx: HX coloni c polyps, screening Post-Op Dx: Polyps, diverticulosis, hemorrhoids Microscopic Description Microscopic sections reviewed. Material Received A. Proximal ascendin g colon polyp B. Transverse colon polyp C. Larger transverse colon polyp Gross Description Received in three parts. Part A: Received in formalin labeled ?proximal ascending colon polyp? are 4 mcnamara-pink irregular tissue fra gments ranging from 0.15 to 0.35 cm, submitted in toto in a cassette labeled A. Part B: Received in formalin labeled ?transverse colon polyp? are several friable, semitranslucent, pal e, mcnamara-white irregular tissue fragments ranging from minute to 0.3 cm and aggregating 0.6 x 0.6 x 0.25 cm, submitted in toto in a cassette labeled B. Part C: Received in formalin labeled ?larger transverse colon polyp? are 5 pale, mcnamara and mcnamara-pink irregular t issue fragments ranging from 0.1-0.25 cm, submitted in toto in a cassette labeled C. CEDS CONTINUED ON NEXT PAGE Name: Krissy Neri Age/Sex: 78/F : 1945 Unit#: [id number] Attend Dr: Umesh Ellsworth Re08/18/23 Status : [facility] Location: [facility] Disch: SPEC : [id number] RECD : 08/18/23-1013 STATUS: NICOLÁSKym SERGEI NUM: [id number] PATI: 08/18/[address] [facility] [address]: Umesh Ellsworth ENTERED: 08/18/23-10 21 SP TYPE: Surgical OTHR DR: Espinoza Santiago MD ORDERED: PEDRO Stain/9, Gross Micro L4/3 Copies To: Espinoza Santiago MD [address] [place] [address] Umesh Ellsworth [address] [place] [address] [id number] [place] [address] Signed (si gnature on file) Lori Ford 08/19/23 1102 END OF REPORT Pathology (Not yet reviewed by provider) Interpretation: Performing Lab:[facility], [address] [place] [phone] Notes/Report: Name: Krissy Neri Age/Sex: 78/F : 1945 Unit#: [id number] Attend Dr: Umesh Ellsworth MD Re12/31/23 Status : [facility] Location: [facility] Disch: SPEC : [id number] RECD : 12/31/23 STATUS: ANAM SERGEI NUM: [id number] PATI: 12/31/[address] [facility] [address]: Umesh Ellsworth MD ENTERED: 12/31/23 SP TYPE: Surgical OTHR DR: Espinoza Sanitago MD ORDERED: HE Stain/9, Gross Micro L4/3 Diagnosis A. Colon, transverse at 70 cm, polypectomy: Fragments of tubular adenoma; negative for high-grade dysplasia or carcinoma. B. Colon, proximal a scending, polypectomy: Fragments of tubular adenoma; negative for high-grade dysplasia or carcinoma. C. Colon, hepatic fl exure, polypectomy: Tubular adenoma; negative for high-grade dysplasia or carcinoma. Clinical History Pre-Op Dx: History polyps Post-Op Dx: Polyps, diverticulosis, hemorrhoids Microscopic Description A-C. Microscopic sec tions reviewed. Material Received A. Transverse colon polyp at 70 cm B. Proximal ascendin g colon polyp C. Hepatic flexure polyp Gross Description Received in 3 parts. A. Received in forma Beacon Reader labeled ?transverse colon polyp at 70 cm? are 4 fragments of mcnamara- white and pink white soft tissue measuring 0.3-0.4 cm in greatest dimension which are wrapped in lens yissel r and entirely submitted for microscopic examination, 4 pieces in cassette A. B. Received in Luv Rink labeled ?proximal ascending colon polyp? are fragments of white and mcnamara-white soft tissu e ranging from 0.1-0.3 cm in greatest dimension which together forming an aggregate measuri ng 0.9 x 0.9 x 0.2 cm which is wrapped in lens paper and entirely submitted for micros copic examination, multiple pieces in cassette B. C. Received in i[employer] Beacon Reader labeled ?hepatic flexure polyp? are fragments of white and mcnamara-white soft soft tissue ran ging from 0.1-0.2 cm in greatest dimension forming an aggregate measuring 1.5 x 1.0 x 0.2 cm which is wrapped in lens paper and entirely submitted for microscopic examinat ion, multiple pieces in cassette C. CONTINUED ON NEXT PAGE Name: Krissy Neri Age/Sex: 78/F : 1945 [facility]#: [id number] Unit#: [id number] Attend Dr: Umesh Ellsworth MD Re12/31/23 Status : [facility] Location: [facility] Disch: SPEC : [id number] RECD : 12/31/23 STATUS: ANAM MAI NUM: [id number] PATI: 12/31/[address] [facility] [address]: Umesh Ellsworth MD ENTERED: 12/31/23 SP TYPE: Surgical OTHR DR: Espinoza Santiago MD ORDERED: HE Stain/9, Gross Micro L4/3 Gross Description (Continued) [facility] Copies To: Espinoza Santiago MD [facility],[place] [address] [place] [address] Umesh Ellsworth MD [facility] [address] [place] [address] Signed (si gnature on file) Kar Mcfarland MD 01/04/[address] abdomen pelvis w con (Not yet reviewed by provider) Interpretation: Performing Lab: Notes/Report: [address] [address] [address] Scan Report Signed Patient: Krissy Neri MR#: [id number] 80 : 1945 Acct:[id number] Age/Sex: 78 / F ADM Date: 02/07/24 Loc: HO.CT Attending Dr: Umesh Ellsworth MD Ordering Physician: Umesh Ellsworth MD Date of Service: 02/07/24 Procedure(s): CT abdomen pelvis w IV con Accession Number(s): [id number] cc: Espinoza Santiago MD; Umesh Ellsworth MD EXAMINATION: CT ABDOMEN AND PELVIS WITH CONTRAST CLINICAL INFORMATION: Benign neoplasm of transverse colon COMPARISON: CT abdomen pelvis 09/07/2017 TECHNIQUE: Multidetector volumetric imaging was performed from the superior aspect of the liver through the pubic symphysis with intravenous contrast. A total of 85 mL of Omnipaque 350 was utilized for the study 900 mL of p.o. contrast was utilized.. Sagittal and coronal reformatted images were obtained on the technologist's workstation. This CT examination was performed using dose optimization techniques as appropriate, variously including the following: *Automated exposure control *Adjustment of mA and/or kV according to patient size (this includes techniques or standardized protocols for targeted exams where dose is matched to indication/reason for exam; i.e. extremities or head) *Use of iterative reconstruction technique DLP: 221 mGy-cm FINDINGS: LUNG BASES: The visualized lung bases are unremarkable. LIVER, GALLBLADDER, AND BILIARY TREE: The liver is normal in size, shape, and attenuation. No focal hepatic lesion or biliary ductal dilatation is present. Status post cholecystectomy. PANCREAS: Unremarkable. SPLEEN: Unremarkable. ADRENAL GLANDS: Unremarkable. KIDNEYS AND URETERS: The kidneys are normal in size, shape, and attenuation. There is a small punctate 2 mm calculus in the right mid kidney with a 3 mm nonobstructing left lower pole renal calculus. No hydronephrosis, hydroureter, or ureteral calculi seen. No perinephric stranding. BLADDER: Unremarkable. GASTROINTESTINAL TRACT: There are colonic diverticula present without diverticulitis. There is a moderate stool burden present throughout the colon. There is an area of mild narrowing of the proximal transverse colon of uncertain significance (3:41 and 5:18). The small and large bowel are otherwise unremarkable. The appendix is not seen but there is no evidence of appendicitis. ABDOMINAL WALL: No significant hernia is appreciated. A neural stimulator is present in the subcutaneous tissues of the left buttock with lead extending in the subcutaneous tissues cephalad beyond the [id number]-kgnn LYMPH NODES: No retroperitoneal lymphadenopathy. VASCULAR: Calcific atherosclerotic changes are present in the aorta and iliofemoral vessels. There is no evidence of an abdominal aortic aneurysm. PELVIC VISCERA: The uterus is not seen. An abnormal adnexal mass is not detected. No free intraperitoneal fluid is present. OSSEOUS STRUCTURES: Mild degenerative changes present in the spine with grade 1 anterolisthesis of L4 upon L5. No bony destructive lesions. CT/CT abdomen pelvis w IV con IMPRESSION: 1. There is a focal area of narrowing in the proximal transverse colon of uncertain significance. Correlation with colonoscopy is recommended. 2. Incidental note made of cholecystectomy, bilateral nonobstructing renal calculi, colonic diverticulosis without diverticulitis and degenerative changes in the spine. Fleischner guidelines were followed. Electronically signed by: Sam Laguna MD 02/07/2024 03:52 PM EST Dictated By: Sam Laguna MD Signed By: <Electronically signed by Sam Laguna MD in OV> 02/07/24 1552 DD/ 1116 TD/TT: 02/07/24 1128 [employer] Professor: [place] [address] CT Scan Report Signed Patient: Do dung Neri MR#: [id number] 80 : 1945 Acct:[id number] Age/Sex: 78 / F ADM Date: 02/07/24 Loc: HO.CT Attending Dr: Umesh Ellsworth MD Ordering Physician: Umesh Ellsworth MD Date of Service: 02/07/24 Procedure(s): CT abd omen pelvis w IV con Accession Number(s): [id number] cc: Espinoza Santiago MD; Umesh Ellsworth MD EXAMINATION: CT ABDOMEN AND PELVI S WITH CONTRAST CLINICAL INFORMATION: Benign neoplasm of t ransverse colon COMPARISON: CT abdomen pelvis 09/07/2017 TECHNIQUE: Multidetector volume tric imaging was performed from the superior aspect of the liver through the pubic symphysis with intravenous contrast. A total of 85 mL of Om nipaque 350 was utilized for the study 900 mL of p.o. contrast was ut ilized.. Sagittal and coronal reformatted images were obtained on the technologist's workstation. This CT examination was performed using dose optimization techniques as appropriate, various ly including the following: *Automated exposure control *Adjustment of mA an d/or kV according to patient size (this includes techniques or standa rdized protocols for targeted exams where dose is matched to indicatio n/reason for exam; i.e. extremities or head) *Use of iterative re construction technique DLP: 221 mGy-cm FINDINGS: LUNG BASES: The visu alized lung bases are unremarkable. LIVER, GALLBLADDER, AND BILIARY TREE: The liver is normal in size, shape, and attenuati on. No focal hepatic lesion or biliary ductal dilatation is presen t. Status post cholecystectomy. PANCREAS: Unremarkable. SPLEEN: Unremarkable. ADRENAL GLANDS: Unremarkable. KIDNEYS AND URETERS: The kidneys are normal in size, shape, and attenuation. There i s a small punctate 2 mm calculus in the right mid kidney with a 3 mm nonobstructing left lower pole renal calculus. No hydronephrosis, hydr oureter, or ureteral calculi seen. No perinephric stranding. BLADDER: Unremarkable. GASTROINTESTINAL TRA CT: There are colonic diverticula present without diverticulitis. Ther e is a moderate stool burden present throughout the colon. There is an a jt of mild narrowing of the proximal transverse colon of uncertain s ignificance (3:41 and 5:18). The small and large bowel are otherwise unremarkable. The appendix is not seen but there is no evidence of appendicitis. ABDOMINAL WALL: No s ignificant hernia is appreciated. A neural stimulator is presen t in the subcutaneous tissues of the left buttock with lead extending in the subcutaneous tissues cephalad beyond the [id number]-lo-dzrd LYMPH NODES: No retr operitoneal lymphadenopathy. VASCULAR: Calcific atherosclerotic changes are present in the aorta and iliofemoral vessels. There is no evidence of an abdominal aortic aneurysm. PELVIC VISCERA: The uterus is not seen. An abnormal adnexal mass is not detected. No free intraperitoneal fluid is present. OSSEOUS STRUCTURES: Mild degenerative changes present in the spine with grade 1 anterolisthe sis of L4 upon L5. No bony destructive lesions. C T/CT abdomen pelvis w IV con IMPRESSION: 1. There is a focal area of narrowing in the proximal transverse colon of uncertain signifi cance. Correlation with colonoscopy is recommended. 2. Incidental note m sebas of cholecystectomy, bilateral nonobstructing renal calculi, colon ic diverticulosis without diverticulitis and degenerative changes in the spine. Fleischner guideline s were followed. Electronically sana d by: Sam Laguna MD 02/07/2024 03:52 PM EST Dictated By: Sam Laguna MD Signed By: <Electron icalltheresa signed by Sam Laguna MD in OV> 02/07/24 1552 DD/ 1116 TD/TT: 02/07/24 1128 [employer] Professor: SYED Reason For Referral No Information Medications Medication SIG (Take, Route, Frequency, Duration) Notes Start Date End Date Status Vitamin B Complex 100mg Active Vitamin C 1000 MG 1 tablet Orally Once a day for 30 day(s) Active lamoTRIgine 200 MG TAKE 1 TABLET BY MANDY TH EVERY MORNING Oral for 90 Active MiraLax Not-Taking Clopidogrel Bisulfate 75 MG TAKE 1 TABLET BY MOUTH EVERY DAY Oral for 90 Active Multivitamin Adults 50+ - as directed Orally Active Campral 333mg Not-Ta Aspirin 81 81 MG 1 tablet Orally Once a day for 30 day(s) Active tiZANidine HCl 2 MG Oral for 90 Active Sertraline HCl 50 MG Oral for 90 Active Albuterol Sulfate HFA 108 (90 Base) MCG/ACT INHALE 2 PUFFS BY MOUTH EVERY 6 HOURS NEEDED FOR BRONCHOSPASM Inhalation for 25 Active Topiramate 25 MG Oral for 90 A ctive Diovan 80mg Not-Taki ng ZyrTEC 10mg Not-Taki ng Folic Acid 1mg Not-T aking Melatonin 3mg Not-Ta saad DULoxetine HCl 30 MG TAKE 1 CAPSULE BY M OUTH TWICE A DAY Oral for 90 Active traZODone HCl 100 MG TAKE 1 TO 2 TABLETS BY MOUTH AT BEDTIME NEEDED Oral for 90 Active clonazePAM 1mg Activ e Vitamin D-3 2000u Ac tive Glucosamine 1500mg A ctive Flovent HFA 110mcg A ctive ProAir HFA 99mcg Act lidia Immunizations Vaccine Route Administration Date Status Comme nts Influenza Unknown 11/20/2018 Administered Problems Problem Type SNOMED Code ICD Code Onset Dates Problem Status W/U Status Risk Notes Problem Colon cancer screening (534640526) Colon cancer screening (Z12.11) Active confirmed Problem 859333720 Encounter for screening for malignant neoplasm of colon (Z12.11) Active confirmed Problem 827862932 History of adenomatous polyp of colon (Z86.010) Active confirmed Problem History of polyp of colon (situation) (585235703) Personal history of colonic polyps (Z86.010) Active confirmed Problem Diverticular disease of colon (628235028) Diverticulosis of large intestine without perforation or abscess without bleeding (K57.30) Active confirmed Problem Screening for malignant neoplasm of rectum (099020745) Encounter for screening for malignant neoplasm of rectum (Z12.12) Active confirmed Problem 40381782 Other iron deficiency anemia (D50.8) Active confirmed Problem 45016884 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) Active confirmed Problem 97376488576273 Long-term curren t use of anticonvulsant (Z79.899) Active confirmed Problem Adenoma of transverse colon (646474711) Adenoma of transverse colon (D12.3) Active confirmed Problem 406703228 H/O long-term (current) use of anticoagulants (Z92.29) Active confirmed Encounters Encounter Location Date Provider Diagnosis [facility] Outpatient [address] [place] [id number] 08/18/2023 Umesh Ellsworth Colon polyps K63.5 ; Personal history of colonic polyps Z86.010 ; Diverticulosis of large intestine without perforation or abscess without bleeding K57.30 and Other hemorrhoids K64.8 [facility] Outpatient [address] [place] [id number] 12/31/2023 Umesh Ellsworth Colon cancer screeni Z12.11 ; Colon polyps K63.5 ; Diverticulosis of large intestine without perforation or abscess without bleeding K57.30 and Other hemorrhoids K64.8 [facility] [address] [place] [phone] 08/22/2023 Umesh Ellsworth [facility] [address] [place] [phone] 08/25/2023 Umesh Ellsworth History of adenomato us polyp of colon Z86.010 and Colon cancer screening Z12.11 [facility] [address] [place] [address] 01/03/2024 Umesh Ellsworth Adenoma of transvers e colon D12.3 [facility] [address] [place] [address] 02/11/2024 Umesh Ellsworth [facility] [address] [place] [address] 05/04/2024 Umesh Ellsworth [facility] [address] [place] [address] 06/20/2024 Umesh Ellsworth Assessments Encounter Date Diagnosis (ICD Code) Assessment Notes Treatment Notes Treatment Clinical Notes Section Notes 08/18/2023 Personal history of colonic polyps (ICD-10 - Z86.010) 08/18/2023 Colon polyps (ICD-10 - K63.5) 12/31/2023 Colon cancer screening (ICD-10 - Z12.11) 12/31/2023 Colon polyps (ICD-10 - K63.5) 08/25/2023 History of adenomatous polyp of colon (ICD-10 - Z86.010) 01/03/2024 Adenoma of transverse colon (ICD-10 - D12.3) 08/18/2023 Diverticulosis of large intestine without perforation or abscess without bleeding (ICD-10 - K57.30) 12/31/2023 Diverticulosis of large intestine without perforation or abscess without bleeding (ICD-10 - K57.30) 08/25/2023 Colon cancer screening (ICD-10 - Z12.11) 08/18/2023 Other hemorrhoids (ICD-10 - K64.8) 12/31/2023 Other hemorrhoids (ICD-10 - K64.8) Plan Of Treatment Pending Test Test Name Order Date BUN 01/03/2024 LIVER PROFILE 01/03/2024 CBC w DIFF 01/03/2024 CT ABD & PELVIS WITH CONTRAST 01/03/2024 Electrolytes 01/03/2024 Creatinine 01/03/2024 Pathology 12/31/2023 CT abdomen pelvis w con 02/07/2024 Future Test Test Name Order Date UPPER GI ENDOSCOPY 05/21/2011 COLONOSCOPY 05/21/2011 COLONOSCOPY 02/06/2016 COLONOSCOPY 03/09/2023 COLONOSCOPY 09/05/2023 Insurance Providers Payer Name Payer Address Payer Phone Subscriber Number Group Number Insured Name Patient Relationship to Insured Coverage Start Date Coverage End Date MEDICARE OF [place] [address] [place] [address] [id number] KRISSY NERI Self - patient is the insured [employer] ATT[employer] CLAIMS [address] [place] [address] [id number] KRISSY NERI Self - patient is the insured Medical (General) History Medical History History ICD Code Asthma Anxiety/depression Alcohol abuse---abstinenet 2010 Denies NH,DM,CVA,renal disease IBS--negative duodenal and c olonic biopsies in 06/2011--no microscopic colitis, no celiac disease Tubular adenomas removed in 2002, 2003, and 2005---negative colonoscopy in 06/2011 GERD--EGD in 06/2011--no esophagitis, nor mal duodenl biopsies TIA in 2013--transient left-sided weakne ss HTN PAD Varicose veins TIA /w seizure DVT's-needed thrombectomies-sees Dr. Cecily taylor at [facility] Chronic anemia in relation to her previo us [place] I surgery Colonoscopy in June of 2016 with removal of a single polyp--the polyp was not recovered and therefore there was no pathology report Osteoporosis Colonoscopy 11/2019 with 2 cecal tubular adenomas Surgical History Surgery Date(Month/Year) 1973-Partial gastrectomy with B-I for PU D CCY Hysterectomy with removal of left ovary Foot surgery-bone spurs--both feet NEVRO Senza Spine Stimulator [phone] for pain put in by Dr. Sebastian 01/2023
--- OUTSIDE RECORDS SUMMARY | 2024-07-07 14:59 | XMS_ITS ---
Author Organization [facility] Address [address] [place] [phone] Care Team Providers Care General Practitioner Name Role Phone Jack HYLTON, [place] Primary Care Provider Unava ilable Umesh Ellsworth Unavailable [phone] MCMULLENBISHNU VILLAVICENCIO Unavailable Unavailable Encounters Encounter Location Date Provider Diagnosis [facility] [address] [place] [phone] 06/20/2024 Umesh Ellsworth Plan Of Treatment No Information Progress Notes * MARILIN NERIISDOB: 6 (79 yo F)Acc No.[id number]:06/20/2024 Patient:?KRISSY NERI :1945???Age:79 Y???Sex:Female Address:[address] [place] [address] * true * Date:? Generated for Cynthia mckoen/Michael/eTransmitting on:?07/07/2024 02:58 PM EDT
--- OUTSIDE RECORDS SUMMARY | 2024-07-07 14:59 | XMS_ITS ---
Author Organization [facility] Address [address] [place] [address] Care Team Providers Care Educational Assistant Name Role Phone Jack HYLTON, [place] Primary Care Provider Unava ilable Umesh Ellsworth Unavailable [phone] MCMULLENBISHNU VILLAVICENCIO Unavailable Unavailable Encounters Encounter Location Date Provider Diagnosis [facility] [address] [place] [phone] 05/04/2024 Umesh Ellsworth Plan Of Treatment No Information Progress Notes * MARILIN NERIISDOB: 6 (79 yo F)Acc No.[id number]:05/04/2024 Patient:?KRISSY NERI :1945???Age:79 Y???Sex:Female Address:[address] [place] [address] * true * Date:? Generated for Cynthia mckeon/Michael/eTransmitting on:?07/07/2024 02:59 PM EDT
== END 2024-07-07 15:48 | disposition home or self-care (01) ==
LOC: HO.HMCH 14:48
PROVIDERS: PCP Internal Medicine; Visit Provider Internal Medicine
DX: G30.9 Alzheimer's disease, unspecified (principal); F02.A0 Dementia in other diseases classified elsewhere, mild, without behavioral disturbance, psychotic disturbance, mood disturbance, and anxiety; I73.9 Peripheral vascular disease, unspecified; G40.209 Localization-related (focal) (partial) symptomatic epilepsy and epileptic syndromes with complex partial seizures, not intractable, without status epilepticus; M50.30 Other cervical disc degeneration, unspecified cervical region; G43.909 Migraine, unspecified, not intractable, without status migrainosus; I10 Essential (primary) hypertension; E78.00 Pure hypercholesterolemia, unspecified; R73.01 Impaired fasting glucose; D64.9 Anemia, unspecified; G62.9 Polyneuropathy, unspecified; J45.40 Moderate persistent asthma, uncomplicated

== ENCOUNTER → 2024-07-07 14:47 | Outpatient (BNVA) | payer MEDICARE, SELFPAY | PROVIDERS: PCP Internal Medicine; Visit Provider Internal Medicine | DX: M50.30 Other cervical disc degeneration, unspecified cervical region (principal); G43.909 Migraine, unspecified, not intractable, without status migrainosus; I10 Essential (primary) hypertension; E78.00 Pure hypercholesterolemia, unspecified; R73.01 Impaired fasting glucose; D64.9 Anemia, unspecified; G62.9 Polyneuropathy, unspecified; G30.9 Alzheimer's disease, unspecified; F02.A0 Dementia in other diseases classified elsewhere, mild, without behavioral disturbance, psychotic disturbance, mood disturbance, and anxiety; I73.9 Peripheral vascular disease, unspecified; J45.40 Moderate persistent asthma, uncomplicated; G40.209 Localization-related (focal) (partial) symptomatic epilepsy and epileptic syndromes with complex partial seizures, not intractable, without status epilepticus; M81.0 Age-related osteoporosis without current pathological fracture; E55.9 Vitamin D deficiency, unspecified; G47.00 Insomnia, unspecified; F41.9 Anxiety disorder, unspecified | CPT/HCPCS: 96127; 99212 ==

== ENCOUNTER 2024-09-27 14:58 | Outpatient (AMB) | payer MEDICARE, SELFPAY ==
--- NOTE | 2024-09-27 15:10 | MHC.OFFVIS ---
Intake Visit Reasons: CPS DEMENTIA Allergies morphine (Morphine) Allergy (Severe, Verified 07/07/24 15:30) VOMITING/HALLUCINATIONS codeine (Codeine) Allergy (Intermediate, Verified 07/07/24 15:30) VOMITING/HALLUCINATIONS, nause/extended abdomen latex Allergy (Unknown, Verified 07/07/24 15:30) Unknown atorvastatin Adverse Reaction (Intermediate, Verified 07/07/24 15:30) fever, chills, abd pain, numbness capsaicin (CAPSAICIN) Adverse Reaction (Intermediate, Verified 07/07/24 15:30) BURNING bacitracin Allergy (Intermediate, Uncoded 07/07/24 15:30) redness and itching adhesives Allergy (Mild, Uncoded 07/07/24 15:30) rash Medication List - Last Reconciled 09/27/24 by Pepe Pereira MD albuterol sulfate 90 mcg/actuation 2 puffs PO Q6H PRN aspirin 81 mg PO DAILY 90 days cholecalciferol (vitamin D3) 25 mcg PO DAILY 90 days clonazepam 1 mg PO BEDTIME PRN 30 days clonazepam 0.5 mg PO BID PRN 30 days clopidogrel 75 mg PO DAILY duloxetine 30 mg PO BID fluticasone propionate 50 mcg/actuation 2 sprays intranasal DAILY PRN fluticasone propionate 110 mcg/actuation 1 puff PO BID NS guaifenesin ER (Mucinex) 600 mg PO Q12H PRN inhalational spacing device (Aerochamber MV spacer) Use with respiratory inhaler as directed lamotrigine 200 mg PO DAILY 30 days memantine 5 mg PO BID 90 days sertraline 50 mg PO DAILY 90 days simvastatin 20 mg PO BEDTIME topiramate 25 mg PO BEDTIME trazodone 100 mg PO DAILY 90 days HPI Comments Details: 79 yo woman with chronic depression, migriane type headaches, h/o episodes suggestive of complex partial seizure disorder (few seconds to few minutes of unresponsiveness, shaking, amnesia of the events, sometimes fainting) with normal routine and ambulatory EEGs but no episode happened during the test. She was also treated for degenerative dementia. Yesterday she was having more forgetfulness and confusion. Today she was better. No headaches. [facility] Medical History (Updated 09/27/24 @ 15:19 by Pepe Pereira MD) DVT (deep venous thrombosis) Depression Dementia Degenerative disease of nervous system, unspecified Multifactorial gait disorder Ataxia Peripheral neuropathy Arthritis Complex partial seizures Vitamin D deficiency TIA (transient ischemic attack) Seizure Alzheimer's dementia Anxiety Insomnia Osteoporosis Anemia Gait abnormality Partial symptomatic epilepsy with complex partial seizures, not intractable, without status epilepticus Asthma Pure hypercholesterolemia Peripheral arterial disease Unsteady gait Neuropathy Benign essential hypertension Alcoholism in remission Exertional dyspnea Surgical History Status post insertion of nerve stimulator Hx of foot surgery Hx of nasal septoplasty History of esophagogastroduodenoscopy (EGD) H/O colonoscopy History of angioplasty History of partial gastrectomy History of cholecystectomy History of cataract surgery History of hysterectomy History of tubal ligation S/P excision of neuroma Family History Father CVD (cardiovascular disease) Heart disease Hypertension Stroke Mother CVD (cardiovascular disease) Heart disease Asthma Maternal Grandmother No problems noted. Maternal Grandfather No problems noted. Paternal Grandmother No problems noted. Paternal Grandfather No problems noted. Maternal Aunt Tongue cancer Social History Household Members: None Housing: Assisted Living Facility Are you a primary neonatal intensive care unit nurse to a significant other at home: No Do you presently have visiting nurse or other home services: No Alcohol intake: former Comment: NA Patient Tobacco Use Status: Former Tobacco user e-Cigarette/Vaping Use: Never Used Second Hand Smoke Exposure: No Advance Directives Date on File: 06/12/21 service: No Current occupational status: retired Cognitive needs: No Hearing needs: No Vision needs: Yes Review of Systems Const Details: Constitutional:?No fever, chills, fatigue, weight loss, or night sweats. HEENT:?No headache, vision changes, hearing loss, nasal congestion, sore throat. Neurological:? Complain of forgetfulness and difficulty were Psychiatric:?No anxiety, depression, mood swings, sleep disturbance, or hallucinations. Endocrine:?No heat/cold intolerance, polydipsia, polyuria, or hair/skin changes. Hematologic/Lymphatic:?No easy bruising, bleeding, or lymphadenopathy. Integumentary (Skin):?No rash, lesions, itching, or color changes. ? Physical Exam Neuro Other: Mental Status: Alert and awake with normal spontaneity of speech fluency comprehension and somewhat flat affect Cranial Nerves: CN II: Visual españa full to confrontation, visual acuity intact. CN III, IV, : Pupils equal, round, reactive to light and accommodation. Extraocular movements are normal. CN V: Facial sensation is normal. CN VII: Facial movements symmetrical. CN VIII: Hearing intact to bedside conversation is normal. CN IX, X: Palate elevates symmetrically. CN XI: Shoulder shrug and head turn symmetrical. CN XII: Tongue midline without atrophy or fasciculations. Slow and cautious gait Extrapyramidal: Full facial expressions and blinking. No rigidity. Movements are appropriate with no tremor or abnormality. Speech: Normal; no dysarthria or tremor. Assessment & Plan Assessment & Plan (1) Complex partial seizures: Comment: CT brain WO at [facility] in 2020: Mild cortical atrophy MRI brain WO at [facility] in 2020: No sig lesion to suggest a stroke, mild atrophy EEG at office in August 2020: WNL NCV/EMG LE Moderately severe bilateral peroneal neuropathy. MRI brain WO at [facility] in Dec 2017: Mild diff atrophy EMG/NCS LEs at office in 2017: bilateral distal tibial neuropathy and sural neuropathyRoutine EEG at office in May 2016: WNL NCV/EMG LE 11/22/14 MAIN FINDING IS BILATERAL DISTAL TIBIAL NEUROPATHY ACROSS THE TARSAL TUNNEL. THERE IS NO EVIDENCE OF A RIGHT LUMBAR RADICULOPATHY. CT brain WO at [facility] in 2013: minimal bifrontal atrophy CT brain WO at [facility] in 2014: mild FT atrophy Routine EEG in office in Oct 2014: OK MRI C spine at [facility] in Oct 2014: straight curvature, no root or cord compromise, mild DJD. Code(s): G40.209 - Localization-related (focal) (partial) symptomatic epilepsy and epileptic syndromes with complex partial seizures, not intractable, without status epilepticus Category: Medical (2) Alzheimer's dementia: Code(s): G30.9 - Alzheimer's disease, unspecified; F02.80 - Dementia in other diseases classified elsewhere, unspecified severity, without behavioral disturbance, psychotic disturbance, mood disturbance, and anxiety Category: Medical Qualifiers: Alzheimer's disease onset: unspecified onset Dementia severity: mild Dementia behavioral or psychological symptom: without behavioral, psychotic, or mood disturbance or anxiety Qualified Code(s): G30.9 - Alzheimer's disease, unspecified; F02.A0 - Dementia in other diseases classified elsewhere, mild, without behavioral disturbance, psychotic disturbance, mood disturbance, and anxiety (3) Migraine without aura: Code(s): G43.009 - Migraine without aura, not intractable, without status migrainosus Category: Medical Qualifiers: Status migrainosus presence: without status migrainosus Intractability: not intractable Qualified Code(s): G43.009 - Migraine without aura, not intractable, without status migrainosus Plan Impression: 1. Complex partial seizure disorder: She was not having symptoms at this time and no medicine was prescribed. 2. Migraine without aura: Headaches were reasonably controlled and no medicine was prescribed for this either 3. Mild degenerative dementia, multifactorial: Memantine 5 mg twice a day was continued. Medications: Refilled memantine 5 mg PO BID 180 tabs 0RF 90 days Discontinued topiramate Discontinued Reason: Doctor's Order 25 mg PO BEDTIME 90 tabs 0RF Coding Level of Care Code Tele Est Pt Level 4 (56750) Diagnoses Complex partial seizures G40.209 Mild Alzheimer's dementia without behavioral disturbance, psychotic disturbance, mood disturbance, or anxiety, unspecified timing of dementia onset G30.9; F02.A0 Alzheimer's disease onset: unspecified onset Dementia severity: mild Dementia behavioral or psychological symptom: without behavioral, psychotic, or mood disturbance or anxiety Migraine without aura and without status migrainosus, not intractable G43.009 Status migrainosus presence: without status migrainosus Intractability: not intractable
--- OUTSIDE RECORDS SUMMARY | 2024-09-27 15:24 | XMS_ITS | Clinical Summary ---
Author Organization [facility] Address [address] [place] [address] Phone Care Team Providers Care Gear Roller Name Role Phone Espinoza Santiago MD Primary Care Provider [phone] Allergies Active Allergy Reactions Criticality Noted Date [...] propionate (FLONASE) 50 mcg/actuation nasal spray 1 [place] by Each Nare route daily. Active clopidogreL [...] Take 1 Tab by mouth daily. Active [id number]-mhr (MegaRed [place]-3 Krill Oil) 982-98-12-50 mg capsule Take 1 Cap by mouth [...] back pain 01/18/2024 PVD (peripheral vascular disease) (CMS/HCC V24) 01/18/2024 Varicose veins of bilateral lower extremities wi th pain 01/18/2024 Encounters Date Type Department Care Team Description 07/06/2024 Telephone Vascular Surgery - [place] [address] [place] [id number] Maritza Wbeber PA Provider Call Back from Last 3 Months Surgical History Surgery Date Site/Laterality Comments ANGIOPLASTY Bilateral PROCEDURE: HISTORICAL ANGIOPLASTY OTHER SURGICAL HISTORY 09/01/2022 PROCEDURE: CO SLCTV CATHJ 3RD+ ORD SLCTV ABDL PEL/LXTR BRNCH OTHER SURGICAL HISTORY 09/01/2022 PROCEDURE: CO SLCTV CATHJ EA 2ND+ ORD ABDL PEL/LXTR ART BRNCH OTHER SURGICAL HISTORY 09/01/2022 PROCEDURE: X-RAY EXAM OF ARM/LEG ARTERIES OTHER SURGICAL HISTORY 09/01/2022 PROCEDURE: X-RAY EXAM OF PELVIC ARTERIES OTHER SURGICAL HISTORY 09/01/2022 PROCEDURE: ULTRASOUND GUIDANCE FOR VASCULAR AC Medical History Medical History Date Comments PVD (peripheral vascular dis ease) (CMS/HCC V24) DX:PVD (peripheral vascular disease) (HCC) Varicose veins of bilateral lower extremities with [...] Description 05/18/2025 1:30 PM EST Ancillary Procedure [facility] - [address] [place] [address] 06/28/2025 3:00 PM EDT Office Visit Vascular Surgery - [place] [address] [place] [id number] Maritza Webber PA [address] [facility] [address] [place] [address] Health Maintenance Due Date Last Done Comments [...] 2024 11/22/2023, 06/29/2023, 12/27/2022, Additional history exists Influenza Vaccine (#1) 2024 , 12/04/2022, 01/13/2022, Additional history exists DTaP,Tdap,and Td Vaccines (2 - Td or Tdap) 03/10/2026 03/10/2016 Zoster Vaccines Completed 11/05/2018, 07/20, 06/22/2012 Pneumococcal Vaccine: 50+ Years Completed 03/06/2022, 08/05/2018 RSV Immunization Adult Patients Completed 02/26/2023 HIB Vaccines Aged Out No longer eligi [...] on patient's age to complete this topic Insurance [place] Advance Directives Documents on File Type Date Recorded Patient [facility]hx) 06/16/2020 AD RENETTA DIRECTIVE Care Teams Gear Roller Relationship Specialty Start Date End Date Espinoza Santiago MD [address] [place] [address] [address] [place] PCP - General Internal Medicine 02/15/13
== END 2024-09-27 15:23 | disposition home or self-care (01) ==
LOC: HO.HSM 14:58
PROVIDERS: PCP Internal Medicine; Visit Provider Psychiatry & Neurology Neurology
DX: G40.209 Localization-related (focal) (partial) symptomatic epilepsy and epileptic syndromes with complex partial seizures, not intractable, without status epilepticus (principal); G30.9 Alzheimer's disease, unspecified; F02.A0 Dementia in other diseases classified elsewhere, mild, without behavioral disturbance, psychotic disturbance, mood disturbance, and anxiety; G43.009 Migraine without aura, not intractable, without status migrainosus
CPT/HCPCS: 99214

== ENCOUNTER 2024-09-27 14:58 | Outpatient (REF) | payer MEDICARE, SELFPAY ==
--- OUTSIDE RECORDS SUMMARY | 2024-06-21 12:20 | XMS_ITS ---
Author Organization [facility] Address [address] [place] [address] Care Team Providers Care Hair Weaver Name Role Phone Jack HYLTON, Espinoza Primary Care Provider Umesh Stephenson Unavailable [phone] BISHNU MCMULLEN Unavailable Unavailable REASON FOR VISIT Patient presents today for a F/U after removal of flat polyp Encounters Encounter Location Date Provider Diagnosis [facility] [address] [place] [phone] 06/21/2024 Umesh Ellsworth Plan Of Treatment No Information Progress Notes * LEIA NERIOB: 6 (79 yo F)Acc No.[id number]:06/21/2024 Progress Notes Patient: KRISSY FRAZIER Provider: Yolanda Ellsworth MD :1945 A ge:79 Y S ex:Female Date:06/21/2024 Address:[address] [place], [place] [phone] Pcp:Espinoza Santiago MD Subjective: * Chief Complaints: [...] Ellsworth MD Date: 0 06/21/2024 Generated for Cnythia mckeon/Michael/eTransmitting on: 0 09/27/2024 03:36 PM EDT
--- NOTE | ~2024-09-27 | XR_ITS ---
CLINICAL HISTORY: J98.8 - Other specified respiratory disorders 2 view chest x-ray Comparison: None provided Findings: No consolidation or effusion. Heart size is normal. No acute fracture. IMPRESSION: 1. No acute findings. This document has been electronically signed by: Walter Mullen MD on 09/29/2024 08:56:36
--- OUTSIDE RECORDS SUMMARY | 2024-09-27 15:36 | XMS_ITS | Patient Health Record ---
Author Organization [facility] Address [address] [place] [address] Care Team Providers Care Bench Precision Assembler Name Role Phone Eron Santiago MDneth Primary Care Provider Ike Wolfe Unavailable [phone] Allergies Allergen (clinical drug ingredient) Drug/Non Drug [...] primary osteoarthritis of the ankle and/or foot (541199972) Primary osteoarthrit is, right ankle and foot (M19.071) Active confirmed Problem Localized, primary osteoarthritis of the ankle and/or foot (411461086) Primary osteoarthrit is, left ankle and foot (M19.072) Active confirmed Problem Acquired hammer toe of right foot (7871070432224342) Other hammer toe(s) (acquired), right foot (M20.41) Active confirmed Problem Acquired hammer toe of left foot (7179952521297218) Other hammer toe(s) (acquired), left foot (M20.42) Active confirmed Plan Of Treatment Pending Test Test Name Order Date X ray : Foot, left 2V 01/17/2018 X ray : Foot, left 2V 01/31/2018 X ray : Foot, left 3V 03/02/2018 X ray : Foot, left 3V 08/02/2017 X ray : Foot, left 3V 10/28/2017 X ray : Foot, left 3V 11/24/2017 X ray : Foot, left 3V 01/03/2018 X ray : Foot, left 3V 06/08/2018 X ray : Foot, right 3V 08/02/2017 [id number], [id number], JOINT/BURSA 0 08/30/2017 [id number], [id number], JOINT/BURSA 1 2017 [id number]- Unna Boot 11/24/2017 Insurance Providers Payer Name Payer Address Payer Phone Subscriber Number Group Number Insured Name Patient Relationship to Insured Coverage Start Date Coverage End Date Medicare National [employer] [address] [place] [address] [id number] Cary Davis Self - patient is the insured 1 [employer] [address] [place] [address] [id number] Cary Davis Self - patient is the [...] Blot Clots in the legs 0 03/2017 [facility] dizziness, nausea, drive hieves, deh ydration 09/27/2017 [facility] L3rd toe 01/14/2018 [facility] leg pain blood clots / Afib 20 21
[2024-09-27 15:59] LABS: MANUAL DIFF FLAG NO
[2024-09-27 17:08] LABS: Hematocrit 27.6 % (37.0-47.0); Hemoglobin 8.7 g/dl (12.0-16.0); Imm Gran Abs Auto 0.01 X10*3/uL (0.00-0.03); Imm Gran Pct Auto 0.2 % (0.0-0.4); Lymphocytes Absolute Auto 1.1 X10*3/uL (1.2-4.9); Mean Corpuscular HGB Conc 31.5 g/dl (31.0-35.0); Mean Corpuscular Hemoglobin 29.7 pg (27.0-33.0); Mean Corpuscular Volume 94.2 fL (80.0-98.0); NRBC Abs Auto 0.000 X10*3/uL (0.0-0.012); NRBC Pct Auto 0.0 /100WBC (0.0-0.2); Platelet Count 170 X10*3/uL (160-400); Red Blood Count 2.93 X10*6/uL (4.20-5.50); White Blood Count 4.1 X10*3/uL (4.8-10.8)
[2024-09-27 17:17] LABS: Hemoglobin A1C 85.3623 umol/L; Total Hemoglobin (HGBA1C) 2315.4392 umol/L
[2024-09-27 17:23] LABS: Appearance Urine Clear; Glucose Urine UA Negative (Negative); PH 5.0 (5.0-9.0); Specific Gravity - Urine 1.015 (1.005-1.025); UMIC TRIGGER UA YES
[2024-09-27 17:53] LABS: Anion Gap 12 (12-20); Blood Urea Nitrogen 36 mg/dL (9-16); Calcium 8.4 mg/dL (8.4-10.2); Carbon Dioxide 21 mmol/L (22-29); Chloride 112 mmol/L (96-108); Estimated Glomerular Filt Rate 18; Potassium 4.3 mmol/L (3.3-5.1); Sodium 141 mmol/L (135-145)
[2024-09-27 17:54] LABS: Alanine Aminotransferase 91 U/L (0-31); Albumin Level 4.2 g/dL (3.5-5.0); Alkaline Phosphatase 63 U/L (39-117); Aspartate Amino Transferase 84 U/L (5-31); Cholesterol 147 mg/dL (<200); HDL Cholesterol 79 mg/dL (>40); Total Protein 5.8 g/dL (6.5-8.0); Triglycerides 57 mg/dL (<150)
[2024-09-27 18:04] LABS: Vitamin B12 514 pg/mL (200-900)
[2024-09-27 18:05] LABS: Thyroid Stimulating Hormone 2.13 uIU/mL (0.32-4.0)
== END 2024-09-27 14:59 | disposition home or self-care (01) ==
LOC: HO.XRAY 14:58
PROVIDERS: Absent Provider Internal Medicine; PCP Internal Medicine; Visit Provider Psychiatry & Neurology Neurology
DX: J98.8 Other specified respiratory disorders (principal); G40.209 Localization-related (focal) (partial) symptomatic epilepsy and epileptic syndromes with complex partial seizures, not intractable, without status epilepticus; G30.9 Alzheimer's disease, unspecified; F02.A0 Dementia in other diseases classified elsewhere, mild, without behavioral disturbance, psychotic disturbance, mood disturbance, and anxiety; G43.009 Migraine without aura, not intractable, without status migrainosus; Z13.89 Encounter for screening for other disorder
CPT/HCPCS: 36415; 71046; 80053; 80061; 81001; 82306; 82607; 83036; 84443; 85025; 99212

== ENCOUNTER → 2024-09-27 16:04 | Outpatient (BNV) | payer MEDICARE, SELFPAY | PROVIDERS: Absent Provider Internal Medicine; PCP Internal Medicine; Visit Provider Specialist | DX: J98.8 Other specified respiratory disorders (principal) | CPT/HCPCS: 71046 ==

== ENCOUNTER 2024-10-26 14:13 | Outpatient (AMB) | payer MEDICARE, SELFPAY ==
--- OUTSIDE RECORDS SUMMARY | 2024-06-21 12:20 | XMS_ITS ---
Author Organization [facility] Address [address] [place] [phone] Care Team Providers Care Brush Operator Name Role Phone Jack HYLTON, Espinoza Primary Care Provider Umesh Stephenson Unavailable [phone] BISHNU MCMULLEN Unavailable Unavailable REASON FOR VISIT Patient presents today for a F/U after removal of flat polyp Encounters Encounter Location Date Provider Diagnosis [facility] [address] [place] [phone] 06/21/2024 Umesh Ellsworth Plan Of Treatment No Information Progress Notes * LEIA NERIOB: 6 (79 yo F)Acc No.[id number]:06/21/2024 Progress Notes Patient: KRISSY FRAZIER Provider: Yolanda Ellsworth MD :1945 A ge:79 Y S ex:Female Date:06/21/2024 Address:[address] [place], [place] [phone] Pcp:Espinoza Santiago MD Subjective: * Chief Complaints: [...] 06/21/2024 Generated for Cynthia mckeon/Michael/eTransmitting on: 0 10/26/2024 02:17 PM EDT
--- NOTE | 2024-10-26 14:14 | A.OFFPC_ITS ---
Intake Visit Reasons: Follow up visit review labs Marketing Services Specialist Required: No Accompanied by: Self / Same As Patient Allergies morphine (Morphine) Allergy (Severe, Verified 10/26/24 14:48) VOMITING/HALLUCINATIONS codeine (Codeine) Allergy (Intermediate, Verified 10/26/24 14:48) VOMITING/HALLUCINATIONS, nause/extended abdomen latex Allergy (Unknown, Verified 10/26/24 14:48) Unknown atorvastatin Adverse Reaction (Intermediate, Verified 10/26/24 14:48) fever, chills, abd pain, numbness capsaicin (CAPSAICIN) Adverse Reaction (Intermediate, Verified 10/26/24 14:48) BURNING bacitracin Allergy (Intermediate, Uncoded 10/26/24 14:48) redness and itching adhesives Allergy (Mild, Uncoded 10/26/24 14:48) rash Medication List - Last Reconciled 10/26/24 by Espinoza Santiago MD albuterol sulfate 90 mcg/actuation 2 puffs PO Q6H PRN aspirin 81 mg PO DAILY 90 days cholecalciferol (vitamin D3) 25 mcg PO DAILY 90 days clonazepam 1 mg PO BEDTIME PRN 30 days clonazepam 0.5 mg PO BID PRN 30 days clopidogrel 75 mg PO DAILY duloxetine 30 mg PO BID fluticasone propionate 50 mcg/actuation 2 sprays intranasal DAILY PRN fluticasone propionate 110 mcg/actuation 1 puff PO BID NS guaifenesin ER (Mucinex) 600 mg PO Q12H PRN inhalational spacing device (Aerochamber MV spacer) Use with respiratory inhaler as directed lamotrigine 200 mg PO DAILY 30 days memantine 5 mg PO BID 90 days sertraline 50 mg PO DAILY 90 days simvastatin 20 mg PO BEDTIME trazodone 100 mg PO DAILY 90 days Tobacco use date assessed: 10/26/24 Fall risk assessment: No Falls in past year Last assessed Fall Risk: 10/26/24 Dental Screening Dental Screen Date: 10/26/24 Did you have a dental visit in the last 12 months?: No Did you have a dental problem in the last 6 months where you did not have access to dental care?: No Was dental information given to patient?: No HPI Follow up visit review labs HPI Details Patient's follow up visit / consultation today is done over video conference (iPhone/iPad/Google Meets/Doximity) - this is a TELEHEALTH visit Patient's current medications have been reviewed and verified with patient and/or caregiver/proxy and have been updated accordingly in the medication list Patient has appointment today is done with both patient and her daughter today as patient is suffering from dementia and cognitive decline and would not be able to participate in today's visit on her own Her daughter states that patient was seen by Dr. Pereira for follow-up last month was started on Memantine 5 mg BID and taken off her Topiramate Patient also had some follow-up labs done last month and she would like to go over her results Patient states that she presently feels okay She denies any increased headaches or dizziness Denies any chest pains, no increased shortness of breath but reports experiencing on and off sensations of palpitations lately No nausea/vomiting, no abdominal pain No change in bowel habits noted [facility] Medical History (Updated 10/29/24 @ 18:48 by Espinoza Santiago MD) DVT (deep venous thrombosis) Depression Dementia Degenerative disease of nervous system, unspecified Multifactorial gait disorder Ataxia Peripheral neuropathy Arthritis Complex partial seizures Vitamin D deficiency TIA (transient ischemic attack) Seizure Alzheimer's dementia Anxiety Insomnia Osteoporosis Anemia Gait abnormality Partial symptomatic epilepsy with complex partial seizures, not intractable, without status epilepticus Asthma Pure hypercholesterolemia Peripheral arterial disease Unsteady gait Neuropathy Benign essential hypertension Alcoholism in remission Exertional dyspnea Surgical History Status post insertion of nerve stimulator Hx of foot surgery Hx of nasal septoplasty History of esophagogastroduodenoscopy (EGD) H/O colonoscopy History of angioplasty History of partial gastrectomy History of cholecystectomy History of cataract surgery History of hysterectomy History of tubal ligation S/P excision of neuroma Family History Father CVD (cardiovascular disease) Heart disease Hypertension Stroke Mother CVD (cardiovascular disease) Heart disease Asthma Maternal Grandmother No problems noted. Maternal Grandfather No problems noted. Paternal Grandmother No problems noted. Paternal Grandfather No problems noted. Maternal Aunt Tongue cancer Social History Household Members: None Housing: Assisted Living Facility Are you a primary behavioral health care manager to a significant other at home: No Do you presently have visiting nurse or other home services: No Alcohol intake: former Comment: NA Patient Tobacco Use Status: Former Tobacco user e-Cigarette/Vaping Use: Never Used Second Hand Smoke Exposure: No Advance Directives Date on File: 06/12/21 service: No Current occupational status: retired Current occupational exposures/hazards: No Cognitive needs: No Hearing needs: No Vision needs: Yes Questionnaire PHQ-9 Over the last 2 weeks, how often have you been bothered by any of the following problems? 1. Little interest or pleasure in doing things: more than half the days 2. Feeling down, depressed, or hopeless: more than half the days 3. Trouble falling or staying asleep, or sleeping too much: not at all 4. Feeling tired or having little energy: nearly every day 5. Poor appetite or overeating: not at all 6. Feeling bad about yourself - or that you are a failure or have let yourself or your family down: not at all 7. Trouble concentrating on things, such as reading the newspaper or watching television: more than half the days 8. Moving or speaking so slowly that other people could have noticed. Or the opposite - being so fidgety or restless that you have been moving around a lot more than usual: several days 9. Thoughts that you would be better off or of hurting yourself in some way: not at all Total score: 10 Depression Screening Interpretation: Positive Depression Screening Follow-up: Existing condition and In treatment Depression Screening Done: Yes 46438 - PHQ-9 Billing: Yes Source: Developed by Drs. Umesh Petersen, Eden Gonsalez, Adán Suazo and colleagues, with an educational mynor from [employer]. Thrive Questionnaire Date Thrive assessed: 10/26/24 I am a: Patient What is your living situation today?: I have a steady place to live Within the past 12 months, did the food you bought not last and you didn't have the money to get more?: Never true Within the past 12 months, did you worry whether your food would run out before you got money to buy more?: Never true Do you have trouble paying for medicines?: No Do you have trouble getting transportation to medical appointments?: No Do you have trouble paying your heating and electricity bill?: No Do you have trouble taking care of your child, family member or friend?: No Do you have trouble with day-to-day activities such as bathing, preparing meals, shopping, managing finances, etc.?: No Are you currently unemployed and looking for a job?: No Are you interested in more education?: No Please select the resources that you would like help with: None Currently or been in a relationship where the following occur: No concerns reported THRIVE Score: 0 AUDIT C Alcohol Use Questionnaire (AUDIT-C) 1. How often do you have a drink containing alcohol?: Never 3. How often do you have six or more drinks on one occasion?: Never Total Score: 0 Score Reviewed/Action Taken: Yes CHANTELL-7 AMB Questionnaire CHANTELL-7 Date CHANTELL - 7 assessed: 10/26/24 Feeling nervous, anxious, or on edge: 3 = Nearly every day Not being able to stop or control worryin = More than half the days Worrying too much about different things: 2 = More than half the days Trouble relaxin = More than half the days Being so restless that it is hard to sit still: 3 = Nearly every day Becoming easily annoyed or irritable: 2 = More than half the days Feeling afraid as if something awful might happen: 3 = Nearly every day Total CHANTELL-7 score (0-4 normal; 5-9 mild; 10-14 moderate; 15-21 severe): 17 Source: Developed by Drs. Umesh Petersen, Eden Gonsalez, Adán Suazo and colleagues, with an educational mynor from [employer]. CHANTELL-7 Assessment Billing CHANTELL-7 Assessment Tool: CHANTELL-7 Assessment 41996 Review of Systems Const Denies chills, Reports fatigue, Denies fever(s) and Denies headache(s) ENT Denies dysphagia, Denies dizziness, Denies otalgia, Denies headache(s), Reports neck pain (chronic - better controlled since SCS implant last year), Denies odynophagia and Denies sore throat Card Denies chest pain, Reports palpitations (on and off palpitations lately) and Denies dyspnea Resp Denies chest congestion, Denies cough and Denies dyspnea GI Denies abdominal pain, Denies constipation, Denies dysphagia, Denies heartburn, Denies diarrhea, Denies nausea, Denies odynophagia and Denies vomiting Denies difficulty voiding, Denies nocturia, Denies dysuria and Denies urinary urgency Musc Details: (+)recurrent pain over both lower legs Reports abnormal gait (unsteady), Reports arthralgias (right shoulder, on and off - states that has also improved a lot lately) and Reports neck pain (chronic - better controlled since SCS implant last year) Skin/Breast Denies rash Neuro Reports abnormal gait (unsteady), Denies behavioral changes, Denies dizziness, Denies headache(s) and Reports memory loss Psych Reports anxiety, Denies behavioral changes and Reports memory loss Endo Reports fatigue and Reports palpitations (on and off palpitations lately) Physical exam (Primary Care) Vital Signs: Physical examination is not performed as visit / consultation today is done over videoconference - Telehealth visit All physical findings indicated here, if present, are as per patient's and / or caregivers / proxy's report and visual inspection over videoconference, if appropriate or applicable Tobacco/Smoking Status: Tobacco use Status Tobacco use date assessed 10/26/24 10/26/24 14:17 Patient Tobacco Use Status Former Tobacco user 10/26/24 14:17 e-Cigarette/Vaping Use Never Used 10/26/24 14:17 PHQ-9: PHQ-9 Score PHQ-9: Total score 10 10/26/24 14:57 Depression Screening Interpretation: Positive Depression Screening Follow-up: Existing condition and In treatment Thrive Assessment: Date of Thrive Assessment Date Thrive assessed 10/26/24 10/26/24 14:17 Currently or been in a relationship where the following occur: No concerns reported Telehealth Telehealth Telehealth Platform: Telephone Location of provider rendering services: practice address Location of patient: address on file Patient Identification confirmed using: Name, : Yes Telehealth method: video (Doximity) Patient verbally consented to treatment: Yes Patient verbally consented to billing insurance company: Yes Patient informed of any privacy concerns related to visit: Yes Minutes spent on Phone/Video with Pt.: 32 Results Reviewed Results Reviewed: Laboratory Tests 09/27/24 09/27/24 15:56 15:58 WBC 4.1 L Hgb 8.7 L Hct 27.6 L Plt Count 170 D Sodium 141 Potassium 4.3 Creatinine 2.54 H Estimated GFR 18 Random Glucose 57 L* Hemoglobin A1c % 5.5 Calcium 8.4 AST 84 H ALT 91 H Triglycerides 57 Cholesterol 147 LDL Cholesterol, Calc 57 HDL Cholesterol 79 Vitamin B12 514 25-OH Vitamin D Total 36.4 TSH 2.13 Ur Specific [place] 1.015 Urine Protein Negative Urine Glucose (UA) Negative Urine Blood Negative Urine Nitrite Negative Ur Leukocyte Esterase Small (1+) H Coding Level of Care Code Tele Est Pt Level 4 (15594) Diagnoses Acute renal failure, unspecified acute renal failure type N17.9 Acute renal failure type: unspecified Palpitations R00.2 Anemia, unspecified type D64.9 Anemia type: unspecified type Mild Alzheimer's dementia without behavioral disturbance, psychotic disturbance, mood disturbance, or anxiety, unspecified timing of dementia onset G30.9; F02.A0 Alzheimer's disease onset: unspecified onset Dementia severity: mild Dementia behavioral or psychological symptom: without behavioral, psychotic, or mood disturbance or anxiety Migraine without status migrainosus, not intractable, unspecified migraine type G43.909 Migraine type: unspecified Status migrainosus presence: without status migrainosus Intractability: not intractable Partial symptomatic epilepsy with complex partial seizures, not intractable, without status epilepticus G40.209 Degenerative disc disease, cervical M50.30 Neuropathy G62.9 Benign essential hypertension I10 Pure hypercholesterolemia E78.00 Impaired fasting glucose R73.01 Peripheral arterial disease I73.9 Moderate persistent asthma without complication J45.40 Asthma severity: moderate Asthma persistence: persistent Asthma complication type: uncomplicated Age-related osteoporosis without current pathological fracture M81.0 Osteoporosis type: age-related Presence of current pathological fracture: without current pathological fracture Vitamin D deficiency E55.9 Insomnia, unspecified type G47.00 Insomnia type: unspecified Anxiety F41.9 Additional Codes CHANTELL-7 Assessment Billing - CHANTELL-7 Assessment Tool: CHANTELL-7 Assessment 62879 ([id number]) PHQ-9 - 59831 - PHQ-9 Billing: Yes ([id number]) Assessment & Plan Assessment & Plan (1) Acute renal failure: Code(s): N17.9 - Acute kidney failure, unspecified Category: Medical Qualifiers: Acute renal failure type: unspecified Qualified Code(s): N17.9 - Acute kidney failure, unspecified Plan: Results of patient's labs done last month reviewed and discussed with patient and her daughter Have cautioned them that her renal function has significantly declined over the past year, with her serum creatinine at 0.71 and GFR >60 back in January 2024 and her numbers are now serum creatinine of 2.54 and GFR of 18, which places her in stage 4 chronic kidney disease category Will send patient for some repeat labs LEWIS for further evaluation Will also refer her to Nephrology for urgent consultation regarding her renal function decline - discussed with patient daughter that this is likely due to a combination of GI issues over the past year that necessitated colonoscopy at [facility] in August 2024 as well as poor oral intake of fluids We have also gone over her medication list and patient is currently not on any medications that can further exacerbate her renal function decline Have emphasized to patient and her daughter that she should avoid NSAIDs at all cost at this point (2) Palpitations: Code(s): R00.2 - Palpitations Category: Medical Plan: Will refer patient to Cardiology as well for further evaluation and management of her recent palpitations, which may be related to her recent renal function decline and persistent anemia (3) Anemia: Code(s): D64.9 - Anemia, unspecified Category: Medical Qualifiers: Anemia type: unspecified type Qualified Code(s): D64.9 - Anemia, unspecified Plan: Her H/H is now at 8.7/27.0 on her labs done last month, which is much lower than when they were last checked back in January 2024, with H/H then at 10.4/33.6 Discussed with patient's daughter that this may be related as well to her recent renal function decline S/P parenteral iron therapy in June 2021; she has taken iron tablets in the past but could not tolerate Rx due to severe constipation Patient also had a colonoscopy done at [facility] in August 2024 which revealed the presence of multiple polyps and she is recommended to have a repeat colonoscopy in 6 months Follow up with hematology as scheduled (4) Alzheimer's dementia: Code(s): G30.9 - Alzheimer's disease, unspecified; F02.80 - Dementia in other diseases classified elsewhere, unspecified severity, without behavioral disturbance, psychotic disturbance, mood disturbance, and anxiety Category: Medical Qualifiers: Alzheimer's disease onset: unspecified onset Dementia severity: mild Dementia behavioral or psychological symptom: without behavioral, psychotic, or mood disturbance or anxiety Qualified Code(s): G30.9 - Alzheimer's disease, unspecified; F02.A0 - Dementia in other diseases classified elsewhere, mild, without behavioral disturbance, psychotic disturbance, mood disturbance, and anxiety Plan: Patient was diagnosed by neurology last year and started on Memantine 5 mg BID but patient apparently did not take this and was started back on the medication again by Neurology at her recent follow-up visit last month Follow up with neurology as scheduled (5) Migraine: Code(s): G43.909 - Migraine, unspecified, not intractable, without status migrainosus Category: Medical Qualifiers: Migraine type: unspecified Status migrainosus presence: without status migrainosus Intractability: not intractable Qualified Code(s): G43.909 - Migraine, unspecified, not intractable, without status migrainosus Plan: Reinforced avoidance of potential migraine triggers Her headaches were controlled on prophylactic Tx but patient states that she hardly had any migraine headaches since her spinal cord implantation for her neck pain so it is likely that her previous neck pains were also a trigger for her migraines She was on Topiramate 25 mg Q HS previously for headache prophylaxis but this was discontinued by Neurology last month (6) Partial symptomatic epilepsy with complex partial seizures, not intractable, without status epilepticus: Code(s): G40.209 - Localization-related (focal) (partial) symptomatic epilepsy and epileptic syndromes with complex partial seizures, not intractable, without status epilepticus Category: Medical Plan: Stable with no recent recurrence - EEG, head CT and carotid doppler done previously all came back normal She was on Lamotrigine 200 mg QD in the past but this was discontinued by Neurology last year Follow-up with Neurology as scheduled (7) Degenerative disc disease, cervical: Code(s): M50.30 - Other cervical disc degeneration, unspecified cervical region Category: Medical Plan: S/P spinal cord implantation by pain management on 01/29/2023, with significant improvement of her neck pain since Patient states that she has no perceived pain at all over her neck lately and is very happy with the outcome of her interventional procedure Follow up with pain management as scheduled (8) Neuropathy: Comment: NCV done in 2019 - sees Dr. Robbins Code(s): G62.9 - Polyneuropathy, unspecified Category: Medical Plan: NCV done in 2019 revealed (+) sensory, motor and axonal peripheral neuropathy Follow up with neurology as scheduled She was on Gabapentin 100 mg at bedtime in the past but currently does not appear to be on anything for neuropathy (9) Benign essential hypertension: Code(s): I10 - Essential (primary) hypertension Category: Medical Plan: Reinforced low sodium diet - goal is systolic BP of at least 130 to 140 mm or less She used to take Losartan 50 mg QD and Clonidine 0.1 mg TID for her blood pressure but she does not appear to need any Rx for her BP lately (10) Pure hypercholesterolemia: Code(s): E78.00 - Pure hypercholesterolemia, unspecified Category: Medical Plan: Results of her labs done last month reviewed and discussed with patient and her daughter Reinforced low cholesterol diet Continue Simvastatin 20 mg QD (11) Impaired fasting glucose: Code(s): R73.01 - Impaired fasting glucose Category: Medical Plan: Patient's HgbA1c was again normal at 5.5% on her labs done last month; her in- office HgbA1c was also normal at 5.1% when last checked in July 2023 Reinforced low calorie/low carb diet (12) Peripheral arterial disease: Code(s): I73.9 - Peripheral vascular disease, unspecified Category: Medical Plan: Symptoms have improved significantly following balloon angioplasty of bilateral lower extremities a couple of years ago Continue Clopidogrel 75 mg once a day Follow-up with vascular surgery (Dr. Marquez) as scheduled (13) Asthma: Code(s): J45.909 - Unspecified asthma, uncomplicated Category: Medical Qualifiers: Asthma severity: moderate Asthma persistence: persistent Asthma complication type: uncomplicated Qualified Code(s): J45.40 - Moderate persistent asthma, uncomplicated Plan: Controlled Continue Flovent HFA 110 mcg 1 puff BID and Ventolin HFA 2 puffs 4 times a day as needed (14) Osteoporosis: Code(s): M81.0 - Age-related osteoporosis without current pathological fracture Category: Medical Qualifiers: Osteoporosis type: age-related Presence of current pathological fracture: without current pathological fracture Qualified Code(s): M81.0 - Age- related osteoporosis without current pathological fracture Plan: Repeat BMD done on 07/17/2021 revealed (+) osteoporosis based on the lowest T- score value of -2.6 in the lumbar spine Her BMD in the AP spine has declined 10.8% from previous and BMD in the left femur has also declined from previous but only by 1.3% Fall precautions reinforced Have considered referring her to endocrinology for further evaluation and management, given her age, but patient asked to hold off for now Have also offered to start her on oral bisphosphonates but after hearing about their potential side effects, patient declined Rx (15) Vitamin D deficiency: Code(s): E55.9 - Vitamin D deficiency, unspecified Category: Medical Plan: Continue Vitamin D3 1000 units QD (16) Insomnia: Code(s): G47.00 - Insomnia, unspecified Category: Medical Qualifiers: Insomnia type: unspecified Qualified Code(s): G47.00 - Insomnia, unspecified Plan: Sleep hygiene reinforced Continue Trazodone 100 mg Q HS PRN (17) Anxiety: Code(s): F41.9 - Anxiety disorder, unspecified Category: Medical Plan: Continue Sertraline 50 mg QD - patient states that her Rx has helped with her anxiety a lot Plan Follow-up as scheduled next month Orders: Orders Complete Blood Count Auto Diff 10/27/24 D64.9 - Anemia, unspecified, N17.9 - Acute kidney failure, unspecified Comprehensive Met. Panel 10/27/24 D64.9 - Anemia, unspecified, N17.9 - Acute kidney failure, unspecified UA CC w/rflx Micro + Cult 10/27/24 D64.9 - Anemia, unspecified, N17.9 - Acute kidney failure, unspecified Microalbumin, Random (w Creat) 10/27/24 D64.9 - Anemia, unspecified, N17.9 - Acute kidney failure, unspecified ECG 12 lead EKG 10/27/24 R00.2 - Palpitations IRON PROFILE 10/27/24 D50.9 - Iron deficiency anemia, unspecified, D64.9 - Anemia, unspecified, N17.9 - Acute kidney failure, unspecified Vitamin D 25-OH Total 10/27/24 D64.9 - Anemia, unspecified, E55.9 - Vitamin D deficiency, unspecified, N17.9 - Acute kidney failure, unspecified Referrals Cardiology Referral R00.2 - Palpitations Nephrology Referral N17.9 - Acute kidney failure, unspecified
--- OUTSIDE RECORDS SUMMARY | 2024-10-26 14:17 | XMS_ITS | Patient Health Record ---
Author Organization [facility] Address [address] [place] [address] Care Team Providers Care Shop Welder Name Role Phone Eron Santiago MDneth Primary Care Provider Ike Wolfe Unavailable [phone] Allergies Allergen (clinical drug ingredient) Drug/Non Drug [...] primary osteoarthritis of the ankle and/or foot (985103239) Primary osteoarthrit is, right ankle and foot (M19.071) Active confirmed Problem Localized, primary osteoarthritis of the ankle and/or foot (462652396) Primary osteoarthrit is, left ankle and foot (M19.072) Active confirmed Problem Acquired hammer toe of right foot ([id number]) Other hammer toe(s) (acquired), right foot (M20.41) Active confirmed Problem Acquired hammer toe of left foot (0138860307055377) Other hammer toe(s) (acquired), left foot (M20.42) [...] X ray : Foot, right 3V 08/02/2017 88336, [id number]/INJECT, JOINT/BURSA 0 08/30/2017 38143, [id number]/INJECT, JOINT/BURSA 1 2017 76777- Unna Boot 11/24/2017 Insurance Providers Payer Name Payer Address Payer Phone Subscriber Number Group Number Insured Name Patient Relationship to Insured Coverage Start Date Coverage End Date Medicare National Govt Svcs Inc [address] [facility] [place] [address] [id number] Cary Davis Self - patient is the insured 1 [employer] Blue Shield [address] [place] [address] [id number] Cary Davis Self - patient is the [...] Blot Clots in the legs 0 03/2017 [facility] dizziness, nausea, drive hieves, deh ydration 09/27/2017 [facility] L3rd toe 01/14/2018 [facility] leg pain blood clots / Afib 20 21
--- OUTSIDE RECORDS SUMMARY | 2024-10-26 14:18 | XMS_ITS | Clinical Summary ---
Author Organization [address] [facility] Address [address] [place] [address] Phone Care Team Providers Care Inside Sales Administrator Name Role Phone Espinoza Santiago MD Primary Care Provider [phone] Allergies Active Allergy Reactions Criticality Noted Date [...] propionate (FLONASE) 50 mcg/actuation nasal spray 1 [place] by Each Nare route daily. Active clopidogreL [...] Take 1 Tab by mouth daily. Active hprxe-oh-6-dha-e qh-ukamfyw-tta (MegaRed [place]-3 Krill Oil) 939-86-86-50 mg capsule Take 1 Cap by mouth [...] Encounters Date Type Department Care Team Description 10/12/2024 Telephone Vascular Surgery - [place] [address] [place] [address] Maritza Webber PA provider call back from Last 3 Months Surgical History Surgery Date Site/Laterality Comments ANGIOPLASTY Bilateral PROCEDURE: HISTORICAL ANGIOPLASTY OTHER SURGICAL HISTORY 09/01/2022 PROCEDURE: ID SLCTV CATHJ 3RD+ ORD SLCTV ABDL PEL/LXTR BRNCH OTHER SURGICAL HISTORY 09/01/2022 PROCEDURE: ID SLCTV CATHJ EA 2ND+ ORD ABDL PEL/LXTR [...] Description 05/18/2025 1:30 PM EST Ancillary Procedure [facility] - [address] [place] [address] 06/28/2025 3:00 PM EDT Office Visit Vascular Surgery - [place] [address] [place] [phone] Maritza Webber PA [address] [facility] [address] [place] [address] Health Maintenance Due Date Last Done Comments Hepatitis A Vaccines (1 of 2 - Risk 2-dose series) 1964 Cholesterol Screening (Lipid Panel) 02/28/2022 Falls Risk Assessment 02/28/2022 Hepatitis C Screening 02/28/2022 Medicare Annual Wellness Visit 02/28/2022 Osteoporosis Screening (Bone Density Screening) 02/28/2022 Social Influencers of Health Screening 02/28/2022 Hypertension/CHF/CAD Annual BMP Blood Test 03/07/2022 Depression Screening 03/22/2024 COVID-19 Vaccine ( season) 2024 11/22/2023, 06/29/2023, [...] Documents on File Type Date Recorded 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
== END 2024-10-26 16:25 | disposition home or self-care (01) ==
LOC: HO.HMCH 14:13
PROVIDERS: PCP Internal Medicine; Visit Provider Internal Medicine
DX: R00.2 Palpitations (principal); G30.9 Alzheimer's disease, unspecified; F02.A0 Dementia in other diseases classified elsewhere, mild, without behavioral disturbance, psychotic disturbance, mood disturbance, and anxiety; G40.209 Localization-related (focal) (partial) symptomatic epilepsy and epileptic syndromes with complex partial seizures, not intractable, without status epilepticus; N17.9 Acute kidney failure, unspecified; D64.9 Anemia, unspecified; G43.909 Migraine, unspecified, not intractable, without status migrainosus; M50.30 Other cervical disc degeneration, unspecified cervical region; G62.9 Polyneuropathy, unspecified; I10 Essential (primary) hypertension; E78.00 Pure hypercholesterolemia, unspecified; R73.01 Impaired fasting glucose

== ENCOUNTER → 2024-10-26 14:13 | Outpatient (BNVA) | payer MEDICARE, SELFPAY | PROVIDERS: PCP Internal Medicine; Visit Provider Internal Medicine | DX: N17.9 Acute kidney failure, unspecified (principal); R00.2 Palpitations; D64.9 Anemia, unspecified; G30.9 Alzheimer's disease, unspecified; F02.A0 Dementia in other diseases classified elsewhere, mild, without behavioral disturbance, psychotic disturbance, mood disturbance, and anxiety; G43.909 Migraine, unspecified, not intractable, without status migrainosus; G40.209 Localization-related (focal) (partial) symptomatic epilepsy and epileptic syndromes with complex partial seizures, not intractable, without status epilepticus; M50.30 Other cervical disc degeneration, unspecified cervical region; E78.00 Pure hypercholesterolemia, unspecified; R73.01 Impaired fasting glucose; I73.9 Peripheral vascular disease, unspecified; J45.40 Moderate persistent asthma, uncomplicated; M81.0 Age-related osteoporosis without current pathological fracture; E55.9 Vitamin D deficiency, unspecified; G47.00 Insomnia, unspecified; F41.9 Anxiety disorder, unspecified | CPT/HCPCS: 96127 ==

== ENCOUNTER 2024-10-27 14:22 | Outpatient (REF) | payer MEDICARE, SELFPAY ==
--- OUTSIDE RECORDS SUMMARY | 2024-06-21 12:20 | XMS_ITS ---
Author Organization [facility] Address [address] [place] [address] Care Team Providers Care Flatbed Owner Operator Name Role Phone Jack HYLTON, Espinoza Primary Care Provider Umesh Stephenson Unavailable [phone] BISHNU MCMULLEN Unavailable Unavailable REASON FOR VISIT Patient presents today for a F/U after removal of flat polyp Encounters Encounter Location Date Provider Diagnosis [facility] [address] [place] [phone] 06/21/2024 Umesh Ellsworth Plan Of Treatment No Information Progress Notes * LEIA NERIOB: 6 (79 yo F)Acc No.[id number]:06/21/2024 Progress Notes Patient: KRISSY FRAZIER Provider: Yolanda Ellsworth MD :1945 A ge:79 Y S ex:Female Date:06/21/2024 Address:[address] [place], [place] [phone] Pcp:Espinoza Santiago MD Subjective: * Chief Complaints: [...] 06/21/2024 Generated for Cynthia mckeon/Michael/eTransmitting on: 0 10/27/2024 02:26 PM EDT
--- OUTSIDE RECORDS SUMMARY | 2024-10-27 14:26 | XMS_ITS | Patient Health Record ---
Author Organization [facility] Address [address] [place] [address] Care Team Providers Care Rigger Supervisor Name Role Phone Eron Santiago MDneth Primary Care Provider Ike Wolfe Unavailable [phone] Allergies Allergen (clinical drug ingredient) Drug/Non Drug [...] primary osteoarthritis of the ankle and/or foot (999241624) Primary osteoarthrit is, right ankle and foot (M19.071) Active confirmed Problem Localized, primary osteoarthritis of the ankle and/or foot (255425671) Primary osteoarthrit is, left ankle and foot (M19.072) Active confirmed Problem Acquired hammer toe of right foot (0097232401703825) Other hammer toe(s) (acquired), right foot (M20.41) Active confirmed Problem Acquired hammer toe of left foot (9839600212269730) Other hammer toe(s) (acquired), left foot (M20.42) [...] X ray : Foot, right 3V 08/02/2017 80736, [id number]/INJECT, JOINT/BURSA 0 08/30/2017 39150, [id number]/INJECT, JOINT/BURSA 1 2017 49137- Unna Boot 11/24/2017 Insurance Providers Payer Name Payer Address Payer Phone Subscriber Number Group Number Insured Name Patient Relationship to Insured Coverage Start Date Coverage End Date Medicare National Govt Svcs Inc [address] [place] [address] [id number] Cary Davis Self - patient is the insured 1 [employer] Blue Shield [address] [place] [address] [phone] [id number] Cary Davis Self - patient is the [...] Blot Clots in the legs 0 03/2017 [facility] [place]iness, nausea, drive hieves, deh ydration 09/27/2017 [facility] L3rd toe 01/14/2018 [facility] leg pain blood clots / Afib 20 21
--- OUTSIDE RECORDS SUMMARY | 2024-10-27 14:27 | XMS_ITS | Clinical Summary ---
Author Organization 300 [facility] Address [address] [place] [address] Phone Care Team Providers Care Case Preparer And Liner Name Role Phone Espinoza Santiago MD Primary Care Provider [phone] Allergies Active Allergy Reactions Criticality Noted Date [...] propionate (FLONASE) 50 mcg/actuation nasal spray 1 [place] by Each Nare route daily. Active clopidogreL [...] Take 1 Tab by mouth daily. Active qgjxa-ye-7-dha-e tp-gpvzclf-hcb (MegaRed [place]-3 Krill Oil) 971-16-68-50 mg capsule Take 1 Cap by mouth [...] Team Description 10/12/2024 Telephone Vascular Surgery - [place] [address] [place] [address] Maritza Webber PA provider call back from Last 3 Months Surgical History Surgery Date Site/Laterality Comments ANGIOPLASTY Bilateral PROCEDURE: HISTORICAL ANGIOPLASTY OTHER SURGICAL HISTORY 09/01/2022 PROCEDURE: [place] SLCTV CATHJ 3RD+ ORD SLCTV ABDL PEL/LXTR BRNCH OTHER SURGICAL HISTORY 09/01/2022 PROCEDURE: [place] SLCTV CATHJ EA 2ND+ ORD ABDL PEL/LXTR [...] Description 05/18/2025 1:30 PM EST Ancillary Procedure [facility] - [address] [place] [address] 06/28/2025 3:00 PM EDT Office Visit Vascular Surgery - [place] [address] [place] [phone] Maritza Webber PA 300 [facility] [address] [place] [address] Health Maintenance Due Date Last Done Comments [...] Documents on File Type Date Recorded 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
[2024-10-27 14:37] LABS: MANUAL DIFF FLAG NO
--- NOTE | 2024-10-27 14:46 | ECG_ITS ---
Test Reason : palpitations Blood Pressure : */* mmHG Vent. Rate : 62 BPM Atrial Rate : 62 BPM P-R Int : 174 ms QRS Dur : 76 ms QT Int : 424 ms P-R-T Axes : 58 -6 60 degrees QTcB Int : 430 ms Normal sinus rhythm Normal ECG When compared with ECG of 07-Sep-2017 16:09, No significant change was found Referred By: Espinoza Santiago Electronically Signed By: ARTEMIO MENDOZA
[2024-10-27 15:07] LABS: Appearance Urine Clear; Glucose Urine UA Negative (Negative); PH 5.5 (5.0-9.0); Specific Gravity - Urine 1.010 (1.005-1.025); UMIC TRIGGER UACC YES
[2024-10-27 15:09] LABS: Hematocrit 26.2 % (37.0-47.0); Hemoglobin 8.4 g/dl (12.0-16.0); Imm Gran Abs Auto 0.00 X10*3/uL (0.00-0.03); Imm Gran Pct Auto 0.0 % (0.0-0.4); Lymphocytes Absolute Auto 1.2 X10*3/uL (1.2-4.9); Mean Corpuscular HGB Conc 32.1 g/dl (31.0-35.0); Mean Corpuscular Hemoglobin 29.5 pg (27.0-33.0); Mean Corpuscular Volume 91.9 fL (80.0-98.0); NRBC Abs Auto 0.000 X10*3/uL (0.0-0.012); NRBC Pct Auto 0.0 /100WBC (0.0-0.2); Platelet Count 153 X10*3/uL (160-400); Red Blood Count 2.85 X10*6/uL (4.20-5.50); White Blood Count 3.7 X10*3/uL (4.8-10.8)
[2024-10-27 15:12] LABS: UACC Culture Trigger YES
[2024-10-27 15:54] LABS: Microalbum/Creatinine Ratio Ur 39.1 ug/mg cr (<30)
[2024-10-27 16:03] LABS: Alanine Aminotransferase 56 U/L (0-31); Albumin Level 4.1 g/dL (3.5-5.0); Alkaline Phosphatase 65 U/L (39-117); Anion Gap 13 (12-20); Aspartate Amino Transferase 52 U/L (5-31); Blood Urea Nitrogen 46 mg/dL (9-16); Calcium 8.4 mg/dL (8.4-10.2); Carbon Dioxide 22 mmol/L (22-29); Chloride 111 mmol/L (96-108); Estimated Glomerular Filt Rate 13; Iron 90 mcg/dL (30-160); Percent Iron Saturation 37 % (15-50); Potassium 5.0 mmol/L (3.3-5.1); Sodium 141 mmol/L (135-145); Total Iron Binding Capacity 243 mcg/dL (228-428); Total Protein 5.8 g/dL (6.5-8.0); Unsaturated Iron Binding 153 ug/dL
== END 2024-10-27 14:23 | disposition home or self-care (01) ==
LOC: HO.LAB 14:22
PROVIDERS: PCP Internal Medicine; Visit Provider Internal Medicine
DX: R00.2 Palpitations (principal); N17.9 Acute kidney failure, unspecified; D50.9 Iron deficiency anemia, unspecified; E55.9 Vitamin D deficiency, unspecified
CPT/HCPCS: 36415; 80053; 81001; 81003; 82043; 82306; 82570; 83540; 85025; 87086; 93005

== ENCOUNTER → 2024-10-27 14:46 | Outpatient (BNV) | payer MEDICARE, SELFPAY | PROVIDERS: PCP Internal Medicine; Visit Provider Internal Medicine | DX: R00.2 Palpitations (principal) | CPT/HCPCS: 93010 ==

== ENCOUNTER 2024-11-03 10:23 | Outpatient (AMB) | payer MEDICARE, SELFPAY ==
--- OUTSIDE RECORDS SUMMARY | 2024-06-21 12:20 | XMS_ITS ---
Author Organization [facility] Address [address] [place] [phone] Care Team Providers Care Fruit Distributor Name Role Phone Jack HYLTON, Espinoza Primary Care Provider Umesh Stephenson Unavailable [phone] BISHNU MCMULLEN Unavailable Unavailable REASON FOR VISIT Patient presents today for a F/U after removal of flat polyp Encounters Encounter Location Date Provider Diagnosis [facility] [address] [place] [phone] 06/21/2024 Umesh Ellsworth Plan Of Treatment No Information Progress Notes * LEIA NERIOB: 6 (79 yo F)Acc No.[id number]:06/21/2024 Progress Notes Patient: KRISSY FRAZIER Provider: Yolanda Ellsworth MD :1945 A ge:79 Y S ex:Female Date:06/21/2024 Address:[address] [place], [place] [phone] Pcp:Espinoza Santiago MD Subjective: * Chief Complaints: * 1 . Patient presents today for a F/U after removal of flat polyp. * Medical History: Objective: * Vitals: Assessment: Plan: * Treatment: * * The named appointment provid er may or may not be the originator of this progress note, and it is not deemed complete until electronically signed by the appointment provider. Sign off status: Pending * Provider: Yolanda Ellsworth MD Date: 0 06/21/2024 Generated for Cynthia mckeon/Michael/eTransmitting on: 0 11/03/2024 10:31 AM EDT
[2024-11-03 10:26] VITALS: BP 140/62; PULSE 75; O2SAT 96; BMI 16.3
--- NOTE | 2024-11-03 10:26 | HO.NEPHOV_ITS ---
Vital Signs 11/03/24 10:26 Height 5 ft 6 in Weight 101 lb BMI 16.3 BP 140/62 H Blood Pressure Location Lt brachial Position Sitting Pulse 75 Pulse Source Pulse Oximeter Pulse Oximetry (%) 96 Oxygen Delivery Method Room Air Intake Visit Reasons: INP: Acute kidney failure ( STAT )-Conf w/daughter Telegraphic Typewriter Operator Required: No Accompanied by: Daughter Allergies morphine (Morphine) Allergy (Severe, Verified 11/03/24 10:29) VOMITING/HALLUCINATIONS codeine (Codeine) Allergy (Intermediate, Verified 11/03/24 10:29) VOMITING/HALLUCINATIONS, nause/extended abdomen latex Allergy (Unknown, Verified 11/03/24 10:29) Unknown atorvastatin Adverse Reaction (Intermediate, Verified 11/03/24 10:29) fever, chills, abd pain, numbness capsaicin (CAPSAICIN) Adverse Reaction (Intermediate, Verified 11/03/24 10:29) BURNING bacitracin Allergy (Intermediate, Uncoded 10/26/24 14:48) redness and itching adhesives Allergy (Mild, Uncoded 10/26/24 14:48) rash Medication List - Last Reconciled 11/03/24 by Dawson Hawkins MD albuterol sulfate 90 mcg/actuation 2 puffs PO Q6H PRN aspirin 81 mg PO DAILY 90 days cholecalciferol (vitamin D3) 25 mcg PO DAILY 90 days clonazepam 1 mg PO BEDTIME PRN 30 days clonazepam 0.5 mg PO BID PRN 30 days clopidogrel 75 mg PO DAILY duloxetine 30 mg PO BID fluticasone propionate 50 mcg/actuation 2 sprays intranasal DAILY PRN fluticasone propionate 110 mcg/actuation 1 puff PO BID NS inhalational spacing device (Aerochamber MV spacer) Use with respiratory inhaler as directed lamotrigine 200 mg PO DAILY 30 days memantine 5 mg PO BID 90 days sertraline 50 mg PO DAILY 90 days simvastatin 20 mg PO BEDTIME trazodone 100 mg PO DAILY 90 days HPI Comments Details: The patient is a 79-year-old female presenting with declining kidney function. Her primary care physician noted significantly elevated kidney function markers, suggesting potential renal failure, and recommended nephrology consultation. The patient reports a long-standing history of back pain and decreased urinary output despite increased fluid intake as advised by her physician. The patient has a history of anemia, which was first noted in recent blood tests, with a significant drop in hemoglobin levels since last January. She also reports experiencing palpitations, which may be related to her anemia or kidney issues. The patient has a history of peripheral artery disease and has undergone procedures for blood clot removal. She denies any history of hypertension or diabetes. The patient has a history of colon polyps, with multiple polyps removed during regular colonoscopies every five to six months. The most recent colonoscopy was in August, where two large polyps were excised. [facility] Medical History (Updated 10/29/24 @ 18:48 by Espinoza Santiago MD) DVT (deep venous thrombosis) Depression Dementia Degenerative disease of nervous system, unspecified Multifactorial gait disorder Ataxia Peripheral neuropathy Arthritis Complex partial seizures Vitamin D deficiency TIA (transient ischemic attack) Seizure Alzheimer's dementia Anxiety Insomnia Osteoporosis Anemia Gait abnormality Partial symptomatic epilepsy with complex partial seizures, not intractable, without status epilepticus Asthma Pure hypercholesterolemia Peripheral arterial disease Unsteady gait Neuropathy Benign essential hypertension Alcoholism in remission Exertional dyspnea Surgical History Status post insertion of nerve stimulator Hx of foot surgery Hx of nasal septoplasty History of esophagogastroduodenoscopy (EGD) H/O colonoscopy History of angioplasty History of partial gastrectomy History of cholecystectomy History of cataract surgery History of hysterectomy History of tubal ligation S/P excision of neuroma Family History Father CVD (cardiovascular disease) Heart disease Hypertension Stroke Mother CVD (cardiovascular disease) Heart disease Asthma Maternal Grandmother No problems noted. Maternal Grandfather No problems noted. Paternal Grandmother No problems noted. Paternal Grandfather No problems noted. Maternal Aunt Tongue cancer Social History Household Members: None Housing: Assisted Living Facility Are you a primary date night caregiver to a significant other at home: No Do you presently have visiting nurse or other home services: No Alcohol intake: former Comment: NA Patient Tobacco Use Status: Former Tobacco user e-Cigarette/Vaping Use: Never Used Second Hand Smoke Exposure: No Advance Directives Date on File: 06/12/21 service: No Current occupational status: retired Current occupational exposures/hazards: No Cognitive needs: No Hearing needs: No Vision needs: Yes Review of Systems Const Denies anorexia, Denies fever(s) and Denies weakness Eyes Denies blurry vision Card Denies no additional complaints and Denies dyspnea Resp Reports no additional complaints, Reports cough and Denies dyspnea GI Denies melena and Denies diarrhea Denies hematuria Musc Denies tingling Neuro Denies focal weakness, Denies tingling, Denies tremor(s) and Denies weakness Physical Exam Vital Signs: Last Vital Signs Pulse 75 11/03/24 10:26 BP 140/62 H 11/03/24 10:26 Pulse Ox 96 11/03/24 10:26 Oxygen Delivery Method Room Air 11/03/24 10:26 BMI result Body Mass Index 16.3 Const General: comfortable Nutritional Appearance: well nourished Orientation/consciousness: patient oriented x3 HEENT Head: No normal to inspection Mouth: moist mucous membranes Neck Neck: Yes supple and Yes no JVD Resp Auscultation: clear to auscultation bilaterally and no rales Cardio Jugular venous distension: no JVD Palpation: no palpable S3 and no palpable S4 Heart sounds: no rubs GI Palpation (GI): Soft to palpation and nontender Percussion: No Fluid wave present General: Yes no CVA tenderness Back/Spine/Pelvis Back: no CVA tenderness Skin General skin exam: petechiae Neuro General: patient oriented x3 Extrem General: Yes no pedal edema and No clubbing Results Reviewed Nephrology Results: Hgb, (12.0-16.0) 8.4 g/dl L 10/27/24 WBC, (4.8-10.8) 3.7 X10*3/uL L 10/27/24 Plt Count, (160-400) 153 X10*3/uL L 10/27/24 Sodium, (135-145) 141 mmol/L 10/27/24 Potassium, (3.3-5.1) 5.0 mmol/L 10/27/24 Chloride, (96-108) 111 mmol/L H 10/27/24 Carbon Dioxide, (22-29) 22 mmol/L 10/27/24 BUN, (9-16) 46 mg/dL H 10/27/24 Creatinine, (0.5-1.4) 3.42 mg/dL H 10/27/24 Calcium, (8.4-10.2) 8.4 mg/dL 10/27/24 Urine Protein, (Neg-Trace) Trace mg/dL 10/27/24 Urine Creatinine 51.10 mg/dL 10/27/24 Assessment & Plan Assessment & Plan (1) Acute renal failure: Code(s): N17.9 - Acute kidney failure, unspecified Category: Medical Qualifiers: Acute renal failure type: unspecified Qualified Code(s): N17.9 - Acute kidney failure, unspecified Plan 79-year-old woman with the essentially normal renal function currently has acute kidney injury. Acute glomerular nephritis needs to be ruled out. Other possibilities includes obstructive uropathy. Plan Stat renal ultrasonogram today. Obtain urine studies including UA and urine protein creatinine ratio. Serologies ordered for for today. Based on this she may need a kidney biopsy if the serologies are positive. I will see her again next week. In the meantime I will follow her lab work and treat accordingly. Encouraged her to avoid NSAIDs and increase p.o. fluid intake Orders: Orders Basic Metabolic Panel Today N17.9 - Acute kidney failure, unspecified Total Protein Urine Random Today N17.9 - Acute kidney failure, unspecified UA and rflx microscopic Today N17.9 - Acute kidney failure, unspecified Anti DNA DS Antibody Today N17.9 - Acute kidney failure, unspecified Neutrophil Cytoplasma Ab Today N17.9 - Acute kidney failure, unspecified Myeloperoxidase Antibody Today N17.9 - Acute kidney failure, unspecified Anti Glomerular Basement Memb Today N17.9 - Acute kidney failure, unspecified US renal BI Today N17.9 - Acute kidney failure, unspecified Creatinine Urine Today N17.9 - Acute kidney failure, unspecified VIRAL Reflex Titer and Pattern Today N17.9 - Acute kidney failure, unspecified Proteinase 3 PR3 Antibodies Today N17.9 - Acute kidney failure, unspecified Complement C3 Today N17.9 - Acute kidney failure, unspecified Complement C4 Today N17.9 - Acute kidney failure, unspecified Protein Electrophoresis, Serum Today N17.9 - Acute kidney failure, unspecified Patient Instructions: - Schedule and complete the kidney ultrasound as soon as possible. - Complete the blood and urine tests as instructed. - Avoid taking NSAIDs such as Aleve, Advil, and Motrin. - Use acetaminophen for pain management if needed. - Attend the follow-up appointment next week to review test results. Coding Level of Care Code New Pt Level 4 (77038) Diagnoses Acute renal failure, unspecified acute renal failure type N17.9 Acute renal failure type: unspecified
--- OUTSIDE RECORDS SUMMARY | 2024-11-03 10:31 | XMS_ITS | Patient Health Record ---
Author Organization [facility] Address [address] [place] [address] Care Team Providers Care Shredded Filler Hopper Feeder Name Role Phone Eron Santiago MDneth Primary Care Provider Ike Wolfe Unavailable [phone] Allergies Allergen (clinical drug ingredient) Drug/Non Drug [...] primary osteoarthritis of the ankle and/or foot (322321532) Primary osteoarthrit is, right ankle and foot (M19.071) Active confirmed Problem Localized, primary osteoarthritis of the ankle and/or foot (342727953) Primary osteoarthrit is, left ankle and foot (M19.072) Active confirmed Problem Acquired hammer toe of right foot (0641364888440103) Other hammer toe(s) (acquired), right foot (M20.41) Active confirmed Problem Acquired hammer toe of left foot (0590753906264000) Other hammer toe(s) (acquired), left foot (M20.42) [...] X ray : Foot, right 3V 08/02/2017 17798, [id number]/INJECT, JOINT/BURSA 0 08/30/2017 86884, [id number]/INJECT, JOINT/BURSA 1 2017 84991- Unna Boot 11/24/2017 Insurance Providers Payer Name Payer Address Payer Phone Subscriber Number Group Number Insured Name Patient Relationship to Insured Coverage Start Date Coverage End Date Medicare National Govt Svcs Inc [address] [place] [address] [id number] Cary Davis Self - patient is the insured 1 [employer] Blue Shield [address] [place] [address] [id number] Cary Davis Self - patient is the [...] Blot Clots in the legs 0 03/2017 [facility] dizziness, nausea, drive hieves, deh ydration 09/27/2017 [facility] L3rd toe 01/14/2018 [facility]-sever leg pain blood clots / Afib 20 21
--- OUTSIDE RECORDS SUMMARY | 2024-11-03 10:31 | XMS_ITS | Clinical Summary ---
Author Organization 300 [facility] Address [address] [place] [address] Phone Care Team Providers Care Rolling Attendant Name Role Phone Espinoza Santiago MD Primary Care Provider [phone] Allergies Active Allergy Reactions Criticality Noted Date [...] propionate (FLONASE) 50 mcg/actuation nasal spray 1 [place] by Each Nare route daily. Active clopidogreL [...] Take 1 Tab by mouth daily. Active moknj-vj-0-dha-e zn-tqvrtgv-thf (MegaRed [place]-3 Krill Oil) 523-66-16-50 mg capsule Take 1 Cap by mouth [...] Team Description 10/12/2024 Telephone Vascular Surgery - [place] [address] [place] [address] Maritza Webber PA provider call back from Last 3 Months Surgical History Surgery Date Site/Laterality Comments ANGIOPLASTY Bilateral PROCEDURE: HISTORICAL ANGIOPLASTY OTHER SURGICAL HISTORY 09/01/2022 PROCEDURE: [place] SLCTV CATHJ 3RD+ ORD SLCTV ABDL PEL/LXTR BRNCH OTHER SURGICAL HISTORY 09/01/2022 PROCEDURE: [place] SLCTV CATHJ EA 2ND+ ORD ABDL PEL/LXTR [...] 05/18/2025 1:30 PM EST Ancillary Procedure [facility] - [address] [place] [address] 06/28/2025 3:00 PM EDT Office Visit Vascular Surgery - [place] [address] [place] [phone] Maritza Webber PA 300 [facility] [address] [place] [address] Health Maintenance Due Date Last Done Comments [...] Documents on File Type Date Recorded 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
== END 2024-11-03 10:47 | disposition home or self-care (01) ==
LOC: HO.HKA 10:23
PROVIDERS: PCP Internal Medicine; Referring Provider Internal Medicine; Visit Provider Internal Medicine Hypertension Specialist
DX: N17.9 Acute kidney failure, unspecified (principal)
CPT/HCPCS: 99204

== ENCOUNTER → 2024-11-03 10:23 | Outpatient (BNVA) | payer MEDICARE, SELFPAY | PROVIDERS: PCP Internal Medicine; Referring Provider Internal Medicine; Visit Provider Internal Medicine Hypertension Specialist | DX: N17.9 Acute kidney failure, unspecified (principal) | CPT/HCPCS: 99202 ==

== ENCOUNTER 2024-11-03 11:25 | Outpatient (REF) | payer MEDICARE, SELFPAY ==
[2024-11-03 13:17] LABS: Appearance Urine Clear; Glucose Urine UA Negative (Negative); PH 5.0 (5.0-9.0); Specific Gravity - Urine 1.010 (1.005-1.025); UMIC TRIGGER UA YES
[2024-11-03 13:37] LABS: Anion Gap 15 (12-20); Blood Urea Nitrogen 55 mg/dL (9-16); Calcium 9.0 mg/dL (8.4-10.2); Carbon Dioxide 22 mmol/L (22-29); Chloride 108 mmol/L (96-108); Estimated Glomerular Filt Rate 13; Potassium 4.6 mmol/L (3.3-5.1); Sodium 140 mmol/L (135-145)
[2024-11-03 14:29] LABS: Total Protein Urine Random 14 mg/dL (<12)
[2024-11-06 22:28] LABS: Prot Elec - Albumin 4.3 g/dL (3.8-4.8); Prot Elec - Alpha1 0.3 g/dL (0.2-0.3); Prot Elec - Alpha2 0.7 g/dL (0.5-0.9); Prot Elec - Beta 1 0.4 g/dL (0.4-0.6); Prot Elec - Beta 2 0.3 g/dL (0.2-0.5); Prot Elec - Gamma 0.4 g/dL (0.8-1.7); Prot Elec - Total Protein 6.2 g/dL (6.1-8.1)
[2024-11-07 11:34] LABS: Anti Nuclear Antibody Screen NEGATIVE (NEGATIVE)
[2024-11-07 12:53] LABS: Neutrophil Cyto Ab Screen NEGATIVE (NEGATIVE)
[2024-11-07 22:19] LABS: Anti Glomerular Basement Memb <1.0 AI; Proteinase 3 PR3 Antibodies <1.0 AI
== END 2024-11-03 11:26 | disposition home or self-care (01) ==
LOC: HO.10HDL 11:25
PROVIDERS: Visit Provider Internal Medicine Hypertension Specialist
DX: Z01.84 Encounter for antibody response examination (principal); N17.9 Acute kidney failure, unspecified
CPT/HCPCS: 36415; 80048; 81001; 82570; 83520; 84156; 84165; 86021; 86036; 86038; 86160; 86225

== ENCOUNTER 2024-11-03 13:23 | Outpatient (REF) | payer MEDICARE, SELFPAY ==
--- NOTE | ~2024-11-03 | US_ITS ---
EXAMINATION: US RETROPERITONEAL LIMITED (RENAL ONLY) CLINICAL INFORMATION: Acute renal failure.. COMPARISON: Correlated to CT dated February 07, 2024. TECHNIQUE: Real-time ultrasound kidneys using grayscale technique. FINDINGS: RIGHT KIDNEY: 9 x 5 x 6 cm (SAG x AP x TRV). Increased echotexture. Renal cortical thinning. No hydronephrosis. No gross solid or cystic lesion. Increased echotexture in the calyces of the pelvicalyceal system. LEFT KIDNEY: 8 x 5 x 5 cm (SAG x AP x TRV). Increased echotexture renal cortical thinning. No hydronephrosis. No gross solid or cystic lesion. Increased echotexture foci of the calyces, pelvicalyceal system US/US renal BI IMPRESSION: Hyperechoic kidneys suggesting edema versus Medical renal disease without hydronephrosis... Electronically signed by: Eric Orosco MD 11/03/2024 03:08 PM EDT
== END 2024-11-03 13:24 | disposition home or self-care (01) ==
LOC: HO.US 13:23
PROVIDERS: PCP Internal Medicine; Visit Provider Internal Medicine Hypertension Specialist
DX: N17.9 Acute kidney failure, unspecified (principal)
CPT/HCPCS: 76775

== ENCOUNTER → 2024-11-03 13:25 | Outpatient (BNV) | payer MEDICARE, SELFPAY | PROVIDERS: PCP Internal Medicine; Visit Provider Radiology Diagnostic Radiology | DX: N17.9 Acute kidney failure, unspecified (principal) | CPT/HCPCS: 76775 ==

== ENCOUNTER 2024-11-04 05:07 | Emergency (ER) | payer MEDICARE, SELFPAY ==
--- OUTSIDE RECORDS SUMMARY | 2024-06-21 12:20 | XMS_ITS ---
Author Organization [facility] Address [address] [place] [address] Care Team Providers Care Optical Mechanic Apprentice Name Role Phone Jack HYLTON, Espinoza Primary Care Provider Umesh Stephenson Unavailable [phone] BISHNU MCMULLEN Unavailable Unavailable REASON FOR VISIT Patient presents today for a F/U after removal of flat polyp Encounters Encounter Location Date Provider Diagnosis [facility] [address] [place] [phone] 06/21/2024 Umesh Ellsworth Plan Of Treatment No Information Progress Notes * LEIA NERIOB: 6 (79 yo F)Acc No.[id number]:06/21/2024 Progress Notes Patient: KRISSY FRAZIER Provider: Yolanda Ellsworth MD :1945 A ge:79 Y S ex:Female Date:06/21/2024 Address:[address] [place], [place] [phone] Pcp:Espinoza Santiago MD Subjective: * Chief Complaints: [...] 06/21/2024 Generated for Cynthia mckeon/Michael/eTransmitting on: 0 11/04/2024 05:49 AM EDT
[2024-11-04 05:23] VITALS: BP 157/58; BP 160/90; PULSE 70; PULSE 73; RESP 20; TEMP 37; O2SAT 97; O2SAT 98; BMI 17.1
--- NOTE | 2024-11-04 05:24 | ECG_ITS ---
Test Reason : ABDOMINAL PAIN Blood Pressure : */* mmHG Vent. Rate : 69 BPM Atrial Rate : 69 BPM P-R Int : 178 ms QRS Dur : 74 ms QT Int : 400 ms P-R-T Axes : 45 -1 58 degrees QTcB Int : 428 ms Normal sinus rhythm Normal ECG When compared with ECG of 27-Oct-2024 14:53, No significant change was found Referred By: Generic ED Physician Electronically Signed By: Hemal Schaefer
--- OUTSIDE RECORDS SUMMARY | 2024-11-04 05:50 | XMS_ITS | Clinical Summary ---
Author Organization 300 [facility] Address [address] [place] [address] Phone Care Team Providers Care Public Relations Specialist Name Role Phone Espinoza Santiago MD Primary Care Provider [phone] Allergies Active Allergy Reactions Criticality Noted Date [...] propionate (FLONASE) 50 mcg/actuation nasal spray 1 [place] by Each Nare route daily. Active clopidogreL [...] Take 1 Tab by mouth daily. Active kzbej-nz-0-dha-e ck-qzejxkt-mvd (MegaRed [place]-3 Krill Oil) 916-16-94-50 mg capsule Take 1 Cap by mouth [...] Team Description 10/12/2024 Telephone Vascular Surgery - [place] [address] [place] [address] Maritza Webber PA provider call back from Last 3 Months Surgical History Surgery Date Site/Laterality Comments ANGIOPLASTY Bilateral PROCEDURE: HISTORICAL ANGIOPLASTY OTHER SURGICAL HISTORY 09/01/2022 PROCEDURE: [place] SLCTV CATHJ 3RD+ ORD SLCTV ABDL PEL/LXTR BRNCH OTHER SURGICAL HISTORY 09/01/2022 PROCEDURE: [place] SLCTV CATHJ EA 2ND+ ORD ABDL PEL/LXTR [...] Description 05/18/2025 1:30 PM EST Ancillary Procedure [facility] - [address] [place] [address] 06/28/2025 3:00 PM EDT Office Visit Vascular Surgery - [place] [address] [place] [phone] Maritza Webber PA 300 [facility] [address] [place] [address] Health Maintenance Due Date Last Done Comments [...] Documents on File Type Date Recorded Patient Tester Compressed Gases Expl [facility] Health Care Decision (hx) 06/16/2020 AD RENETTA DIRECTIVE Care Teams Public Relations Specialist Relationship Specialty Start Date End Date Espinoza Santiago MD [address] [place] [address] [address] [place] PCP - General Internal Medicine 02/15/13
--- NOTE | 2024-11-04 06:08 | PC.NURSE ---
20 G IV ine established in L AC, labs drawn and sent to lab for processing, patient oriented to ED room, call colindres placed within patient's reach. Patient awaiting to be seen by ED provider.
[2024-11-04 06:11] LABS: Hematocrit 22.2 % (37.0-47.0); Hemoglobin 7.3 g/dl (12.0-16.0); Imm Gran Abs Auto 0.01 X10*3/uL (0.00-0.03); Imm Gran Pct Auto 0.3 % (0.0-0.4); Lymphocytes Absolute Auto 1.3 X10*3/uL (1.2-4.9); Mean Corpuscular HGB Conc 32.9 g/dl (31.0-35.0); Mean Corpuscular Hemoglobin 30.4 pg (27.0-33.0); Mean Corpuscular Volume 92.5 fL (80.0-98.0); NRBC Abs Auto 0.000 X10*3/uL (0.0-0.012); NRBC Pct Auto 0.0 /100WBC (0.0-0.2); Platelet Count 135 X10*3/uL (160-400); Red Blood Count 2.40 X10*6/uL (4.20-5.50); White Blood Count 3.6 X10*3/uL (4.8-10.8)
[2024-11-04 06:30] LABS: Alanine Aminotransferase 82 U/L (0-31); Albumin Level 4.0 g/dL (3.5-5.0); Alkaline Phosphatase 62 U/L (39-117); Anion Gap 16 (12-20); Aspartate Amino Transferase 61 U/L (5-31); Blood Urea Nitrogen 54 mg/dL (9-16); Calcium 8.4 mg/dL (8.4-10.2); Carbon Dioxide 20 mmol/L (22-29); Chloride 108 mmol/L (96-108); Creatinine Clr Calc Pharmacy 10.5; Estimated Glomerular Filt Rate 13; Potassium 4.6 mmol/L (3.3-5.1); Sodium 139 mmol/L (135-145); Total Protein 5.8 g/dL (6.5-8.0)
[2024-11-04 06:37] LABS: Troponin-I High Sensitivity 5.7 ng/L (<3.5-17.0)
[2024-11-04 07:37] LABS: B Type Natriuretic Peptide 212 pg/mL (<100)
[2024-11-04 07:50] LABS: Appearance Urine Clear; Glucose Urine UA Negative (Negative); PH 5.5 (5.0-9.0); Specific Gravity - Urine <= 1.005 (1.005-1.025); UMIC TRIGGER UACC YES
--- NOTE | 2024-11-04 07:53 | ED_ITS ---
HPI - General Adult General Chief complaint: General Medical Stated complaint: LE/ABD SWELLING,NEW KIDNEY FAILURE PER EMS Time Seen by Provider: 11/04/24 07:16 Source: patient and EMS Mode of arrival: EMS Limitations: no limitations History of Present Illness ED Provider: HPI narrative: 79-year-old female who states she went to see her piece marker small arms for the 1st time yesterday she has had no new weakness no hematemesis no hematochezia, no vaginal bleeding, no hematuria. due to worsening kidney function and then she went home and she had her legs down and they were becoming more swollen and she was becoming very nervous about this. She lives at home ambulates with a walker and has family to support her. She has not upcoming appointment with the piece marker small arms. Related Data Previous Rx's ?Medication ?Instructions ?Recorded inhalational spacing device #10 ea 06/10/22 (Aerochamber MV spacer) fluticasone propionate 50 2 spray intranasal DAILY PRN for 11/28/23 mcg/actuation nasal allergies #48 mL spray,suspension aspirin 81 mg tablet,delayed 81 mg PO DAILY 90 days #9 0 tabs 11/29/23 release clonazepam 0.5 mg tablet 0.5 mg PO BID PRN anxiety 30 days 11/29/23 #60 tabs clonazepam 1 mg tablet 1 mg PO BEDTIME PRN anxiety 30 11/29/23 days #30 tabs lamotrigine 200 mg tablet 200 mg PO DAILY 30 days #30 tabs 11/29/23 sertraline 50 mg tablet 50 mg PO DAILY 90 days #90 t abs 11/29/23 trazodone 100 mg tablet 100 mg PO DAILY 90 days #90 tabs 11/29/23 cholecalciferol (vitamin D3) 25 25 mcg PO DAILY 90 day s #90 caps 03/06/24 mcg (1,000 unit) capsule fluticasone propionate 110 1 puff PO BID #12 ea mcg/actuation HFA aerosol inhaler albuterol sulfate 90 mcg/actuation 2 puff PO Q6H PRN s hortness of 04/19/24 aerosol inhaler breath or wheezing #8.5 ea simvastatin 20 mg tablet 20 mg PO BEDTIME #90 tabs memantine 5 mg tablet 5 mg PO BID 90 days #180 tab s 09/27/24 clopidogrel 75 mg tablet 75 mg PO DAILY #90 tabs 10/20 06/13 duloxetine 30 mg capsule,delayed 30 mg PO BID #180 cap s 11/01/24 release Allergies Allergy/AdvReac Type Severity Reaction Status Date / Time morphine (Morphine) Allergy Severe VOMITING/LONGORIA Verified 11/04/24 05:26 LLUCINATION S codeine (Codeine) Allergy Intermediate VOMITING/HALLUCINATIONS, Verified 11/04/24 05:26 nause/extended abdomen latex Allergy Unknown Unknown Verified 11/04/24 05:26 atorvastatin AdvReac Intermediate fever, Verified 11/04/24 05:26 chills, abd pain, numbness capsaicin (CAPSAICIN) AdvReac Intermediate BURNING Verified 11/04/24 05:26 bacitracin Allergy Intermediate redness Uncoded 11/04/24 05:26 and itching adhesives Allergy Mild rash Uncoded 11/04/24 05:26 Review of Systems 2 Constitutional: Constitutional: Reports as per HPI [facility] Past Medical History Medical History (Updated 11/04/24 @ 08:05 by Jules Covarrubias DO) DVT (deep venous thrombosis) Depression Dementia Degenerative disease of nervous system, unspecified Multifactorial gait disorder Ataxia Peripheral neuropathy Arthritis Complex partial seizures Vitamin D deficiency TIA (transient ischemic attack) Seizure Alzheimer's dementia Anxiety Insomnia Osteoporosis Anemia Gait abnormality Partial symptomatic epilepsy with complex partial seizures, not intractable, without status epilepticus Asthma Pure hypercholesterolemia Peripheral arterial disease Unsteady gait Neuropathy Benign essential hypertension Alcoholism in remission Exertional dyspnea Surgical History Status post insertion of nerve stimulator Hx of foot surgery Hx of nasal septoplasty History of esophagogastroduodenoscopy (EGD) H/O colonoscopy History of angioplasty History of partial gastrectomy History of cholecystectomy History of cataract surgery History of hysterectomy History of tubal ligation S/P excision of neuroma Family History Family History Father CVD (cardiovascular disease) Heart disease Hypertension Stroke Mother CVD (cardiovascular disease) Heart disease Asthma Maternal Grandmother No problems noted. Maternal Grandfather No problems noted. Paternal Grandmother No problems noted. Paternal Grandfather No problems noted. Maternal Aunt Tongue cancer Social History Social History Household Members: None Housing: Assisted Living Facility Are you a primary healthcare management consultant to a significant other at home: No Do you presently have visiting nurse or other home services: No Alcohol intake: former Comment: NA Patient Tobacco Use Status: Former Tobacco user Smoked in Last 30 Days: No e-Cigarette/Vaping Use: Never Used Second Hand Smoke Exposure: No Use of substances other than those prescribed or required for medical reasons: No Advance Directives: Yes Advance Directives on File: Yes Advance Directives Date on File: 06/12/21 Do you have a plan to hurt others: No Plan service: No Current occupational status: retired Current occupational exposures/hazards: No Cognitive needs: No Hearing needs: No Vision needs: Yes Physical Exam ED Vital Signs: Vital Signs - 24 hr 11/04/24 05:23 Temperature 98.6 F Pulse Rate 73 Respiratory Rate 20 Blood Pressure 157/58 H Pulse Oximetry 97 Oxygen Delivery Method Room Air BMI result Body Mass Index 17.1 Const Other: * Gen: ?Overall well-appearing patient, appears of stated age * CV: RRR, * Resp: ?No wheezing rales rhonchi no stridor moving air well * Abd: ?Bowel sounds are present, no tenderness no rebound no rigidity * MSK: FROM, strength 5/5 all extremities * Skin: Varicose veins, no pedal edema * Neuro: ?Alert and oriented x3, moving upper and lower extremities symmetrically, no obvious facial asymmetry noted Medical Decision Making Medical Decision Making MDM Narrative: I reviewed nephrology notes, I reviewed patient's ultrasound images done yesterday, noted that she is developing anemia also mentioned in nephrology notes considering that this is anemia of renal disease, patient did not mention any melena to suspect GI bleeding as the cause, I spoke to her regarding iron supplements she states that they make her constipated so I am going to suggest alternative brands for her see my discharge instructions otherwise she is not hypotensive not exhibiting any chest pain no EKG changes to suspect symptomatic anemia but I did mention to her if the anemia is getting worse she may need to be transfused. She is seeing her piece marker small arms next week I will make sure to document that her anemia needs to be monitored. Differential Diagnosis Differential Diagnoses: The differential diagnosis associated with the presentation includes (Renal failure, electrolyte derangements, anemia of chronic disease, rectal bleeding, CHF) Admission/Observation Consideration of admission/observation: Escalation of care including admission/observation considered 2022 Emergency Medicine Coding Guide from [employer] on 11/04/2024 All calculations should be rechecked by clinician prior to use RESULT SUMMARY: 5 Estimated Level of Service Problems: Moderate (4) Risk: High (5) Data: Extensive (5) NARRATIVE MDM: This patient's problem complexity is Moderate as patient: with chronic illness(es) with exacerbation/progression/side effects of treatment. This patient's risk is High due to: overall presentation requiring evaluation for a potentially High-risk process. This patient's data complexity is Extensive due to: -multiple tests ordered/reviewed -external notes reviewed -independent interpretation of imaging or EKG INPUTS: Number and Complexity ?> 3 = 4: chronic illness with exacerbation (c) Risk level ?> 4 = High Tests ordered ?> 2 = 2 Tests results reviewed (excluding labs) ?> 2 = 2 Prior external notes reviewed ?> 1 = 1 Assessment requiring and independent historian ?> 0 = No Independent interpretation of tests ?> 1 = Yes Discussed management/test interpretation w/external professional ?> 0 = No Lab Data [facility] Lab Attestation statement: I reviewed the patient's lab results. 11/04/24 06:04 11/04/24 06:04 Labs: Lab Results 11/04/24 11/04/24 Range/Units 06:04 07:43 WBC 3.6 L (4.8-10.8) X10*3/uL RBC 2.40 L (4.20-5.50) X10*6/uL Hgb 7.3 L (12.0-16.0) g/dl Hct 22.2 L (37.0-47.0) % MCV 92.5 (80.0-98.0) fL MCH 30.4 (27.0-33.0) pg MCHC 32.9 (31.0-35.0) g/dl RDW 15.3 (11.0-16.0) % Plt Count 135 L (160-400) X10*3/uL MPV 10.2 (9.4-12.3) fL Immature Gran % (Auto) 0.3 (0.0-0.4) % Neut % (Auto) 51.8 (45-73) % Lymph % (Auto) 34.6 (20-40) % [place] % (Auto) 10.0 (2-11) % Eos % (Auto) 2.5 (0-4) % Baso % (Auto) 0.8 (0-2) % Lymph # (Auto) 1.3 (1.2-4.9) X10*3/uL [place] # (Auto) 0.4 (0.1-1.2) X10*3/uL Eos # (Auto) 0.1 (0.0-0.4) X10*3/uL Baso # (Auto) 0.0 (0.0-0.2) X10*3/uL Abs Immat Gran (auto) 0.01 (0.00-0.03) X10*3/uL Absolute Neuts (auto) 1.9 L (2.0-8.3) x10*3/uL Absolute Nucleated RBC 0.000 (0.0-0.012) X10*3/uL Nucleated RBC % (auto) 0.0 (0.0-0.2) /100WBC Sodium 139 (135-145) mmol/L Potassium 4.6 (3.3-5.1) mmol/L Chloride 108 (96-108) mmol/L Carbon Dioxide 20 L (22-29) mmol/L Anion Gap 16 (12-20) BUN 54 H (9-16) mg/dL Creatinine 3.32 H (0.5-1.4) mg/dL Estim Creat Clear Calc 10.5 Estimated GFR 13 Random Glucose 72 (60-115) mg/dL Calcium 8.4 D (8.4-10.2) mg/dL Total Bilirubin 0.3 (0.0-1.0) mg/dL AST 61 H (5-31) U/L ALT 82 H (0-31) U/L Alkaline Phosphatase 62 (39-117) U/L Troponin I High Sens 5.7 (<3.5-17.0) ng/L B-Natriuretic Peptide 212 H (<100) pg/mL Total Protein 5.8 L (6.5-8.0) g/dL Albumin 4.0 (3.5-5.0) g/dL Urine Color Yellow Urine Appearance Clear Urine pH 5.5 (5.0-9.0) Ur Specific [place] <= 1.005 (1.005-1.025) Urine Protein Negative (Neg-Trace) mg/dL Urine Glucose (UA) Negative (Negative) mg/dL Urine Ketones Negative (Negative) mg/dL Urine Blood Negative (Negative) Urine Nitrite Negative (Negative) Ur Leukocyte Esterase Trace H (Negative) Discharge Plan Discharge Clinical Impression: Acute renal failure (ARF), Anemia of renal disease Patient Disposition: Home, Self-Care Additional Instructions: You were evaluated in the emergency department a day after seeing your piece marker small arms, I understand you going to see your piece marker small arms next week, your CBC needs to be monitored to make sure you are not getting more anemic that would require blood transfusion or potentially iron infusion though I did check after discussing iron supplements with a you that you have had iron studies and they were normal. So this is something to monitor, as far as your concern for swelling of the legs, you did not have any swelling of the legs and when you not walking please keep your legs elevated at or above your heart level that we will prevent the swelling, you can also wear tightness stockings that will prevent the swelling as well. The rest of the workup included EKG and other blood work which has been reassuring. Your renal function is stable and I have reviewed your nephrology notes an ultrasound findings but these need to be discussed with you by your kidney doctor. Prescriptions: No Action (DME) Aerochamber MV Spacer See Rx Instructions .Route Qty: 10 0RF Rx Instructions: Use with respiratory inhaler as directed fluticasone propionate 50 mcg/actuation spray,suspension 2 spray intranasal DAILY PRN (Reason: for allergies) Qty: 48 1RF aspirin 81 mg tablet,delayed release (DR/EC) 81 mg PO DAILY 90 Days Qty: 90 3RF clonazepam 1 mg tablet 1 mg PO BEDTIME PRN (Reason: anxiety) 30 Days Qty: 30 0RF clonazepam 0.5 mg tablet 0.5 mg PO BID PRN (Reason: anxiety) 30 Days Qty: 60 0RF lamotrigine 200 mg tablet 200 mg PO DAILY 30 Days Qty: 30 2RF sertraline 50 mg tablet 50 mg PO DAILY 90 Days Qty: 90 1RF trazodone 100 mg tablet 100 mg PO DAILY 90 Days Qty: 90 0RF fluticasone propionate 110 mcg/actuation HFA aerosol inhaler 1 puff PO BID Qty: 12 5RF albuterol sulfate 90 mcg/actuation HFA aerosol inhaler 2 puff PO Q6H PRN (Reason: shortness of breath or wheezing) Qty: 8.5 2RF simvastatin 20 mg tablet 20 mg PO BEDTIME Qty: 90 0RF clopidogrel 75 mg tablet 75 mg PO DAILY Qty: 90 0RF duloxetine 30 mg capsule,delayed release(DR/EC) 30 mg PO BID Qty: 180 0RF cholecalciferol (vitamin D3) 25 mcg (1,000 unit) capsule 25 mcg PO DAILY 90 Days Qty: 90 3RF memantine 5 mg tablet 5 mg PO BID 90 Days Qty: 180 0RF Print Language: Finnish
[2024-11-04 08:05] VITALS: BP 175/67; PULSE 70; RESP 16; TEMP 36.8; O2SAT 98
[2024-11-04 09:05] LABS: MANUAL DIFF FLAG NO
[2024-11-04 10:00] VITALS: BP 126/106; PULSE 76; RESP 16; TEMP 36.3; O2SAT 95
[2024-11-04 10:01] VITALS: BP 175/67; PULSE 70; RESP 16; TEMP 36.8; O2SAT 98
--- NOTE | 2024-11-04 11:13 | PC.NURSE ---
Patient unable to reach daughter for a ride Transport setup d/t patient not having assistive device Report giving to EMS Patient discharged
== END 2024-11-04 11:13 | disposition home or self-care (01) ==
PROVIDERS: Emergency Provider Emergency Medicine; PCP Internal Medicine
DX: N17.9 Acute kidney failure, unspecified (principal); D63.1 Anemia in chronic kidney disease; R19.00 Intra-abdominal and pelvic swelling, mass and lump, unspecified site; M79.89 Other specified soft tissue disorders; F32.A Depression, unspecified; R27.0 Ataxia, unspecified; G62.9 Polyneuropathy, unspecified; G40.109 Localization-related (focal) (partial) symptomatic epilepsy and epileptic syndromes with simple partial seizures, not intractable, without status epilepticus; E55.9 Vitamin D deficiency, unspecified; G30.9 Alzheimer's disease, unspecified; F02.80 Dementia in other diseases classified elsewhere, unspecified severity, without behavioral disturbance, psychotic disturbance, mood disturbance, and anxiety; F41.9 Anxiety disorder, unspecified; G47.00 Insomnia, unspecified; M81.0 Age-related osteoporosis without current pathological fracture; D64.9 Anemia, unspecified; E78.00 Pure hypercholesterolemia, unspecified; I73.9 Peripheral vascular disease, unspecified; Z87.891 Personal history of nicotine dependence; Z79.82 Long term (current) use of aspirin; Z86.718 Personal history of other venous thrombosis and embolism; Z86.73 Personal history of transient ischemic attack (TIA), and cerebral infarction without residual deficits
CPT/HCPCS: 36415; 80053; 81001; 83880; 84484; 85025; 93005; 99283; 99285

== ENCOUNTER → 2024-11-04 05:24 | Outpatient (BNV) | payer MEDICARE, SELFPAY | PROVIDERS: Emergency Provider Emergency Medicine; PCP Internal Medicine; Visit Provider Internal Medicine Cardiovascular Disease | DX: R10.9 Unspecified abdominal pain (principal) | CPT/HCPCS: 93010 ==

== ENCOUNTER 2024-11-09 09:53 | Outpatient (AMB) | payer MEDICARE, SELFPAY ==
--- NOTE | 2024-11-09 10:01 | HO.NEPHOV ---
Vital Signs 11/09/24 10:02 Height 5 ft 6 in Weight 102 lb BMI 16.5 BP 144/66 H Blood Pressure Location Rt brachial Position Sitting Pulse 83 Pulse Source Pulse Oximeter Pulse Oximetry (%) 97 Oxygen Delivery Method Room Air Intake Visit Reasons: 1 week fu/ Conf [employer] Required: No Accompanied by: Daughter Allergies morphine (Morphine) Allergy (Severe, Verified 11/09/24 10:04) VOMITING/HALLUCINATIONS codeine (Codeine) Allergy (Intermediate, Verified 11/09/24 10:04) VOMITING/HALLUCINATIONS, nause/extended abdomen latex Allergy (Unknown, Verified 11/09/24 10:04) Unknown atorvastatin Adverse Reaction (Intermediate, Verified 11/09/24 10:04) fever, chills, abd pain, numbness capsaicin (CAPSAICIN) Adverse Reaction (Intermediate, Verified 11/09/24 10:04) BURNING bacitracin Allergy (Intermediate, Uncoded 11/04/24 05:26) redness and itching adhesives Allergy (Mild, Uncoded 11/04/24 05:26) rash Medication List - Last Reconciled 11/09/24 by Dawson Hawkins MD albuterol sulfate 90 mcg/actuation 2 puffs PO Q6H PRN aspirin 81 mg PO DAILY 90 days cholecalciferol (vitamin D3) 25 mcg PO DAILY 90 days clonazepam 1 mg PO BEDTIME PRN 30 days clonazepam 0.5 mg PO BID PRN 30 days clopidogrel 75 mg PO DAILY duloxetine 30 mg PO BID fluticasone propionate 50 mcg/actuation 2 sprays intranasal DAILY PRN fluticasone propionate 110 mcg/actuation 1 puff PO BID NS inhalational spacing device (Aerochamber MV spacer) Use with respiratory inhaler as directed lamotrigine 200 mg PO DAILY 30 days memantine 5 mg PO BID 90 days sertraline 50 mg PO DAILY 90 days simvastatin 20 mg PO BEDTIME trazodone 100 mg PO DAILY 90 days HPI Comments Details: The patient is a 79-year-old female presenting with declining kidney function. Her primary care physician noted significantly elevated kidney function markers, suggesting potential renal failure, and recommended nephrology consultation. The patient reports a long-standing history of back pain and decreased urinary output despite increased fluid intake as advised by her physician. The patient has a history of anemia, which was first noted in recent blood tests, with a significant drop in hemoglobin levels since last January. She also reports experiencing palpitations, which may be related to her anemia or kidney issues. The patient has a history of peripheral artery disease and has undergone procedures for blood clot removal. She denies any history of hypertension or diabetes. The patient has a history of colon polyps, with multiple polyps removed during regular colonoscopies every five to six months. The most recent colonoscopy was in August, where two large polyps were excised. 11/09/24 The patient is a 79-year-old female presenting with declining kidney function noted by markedly elevated kidney markers. Reports chronic back pain and oliguria despite significant fluid intake. Recurrent edema noted that improved with leg elevation. History of peripheral artery disease with past interventions for clot removal, recurrent colon polyps with the latest excision in August, and anemia with hemoglobin at 7.3 g/dL leading to fatigue and reported palpitations. Previously witnessed black stools now brown with occasional red spots, no recent melena. Denies history of hypertension or diabetes. Medical History: - Peripheral Arterial Disease - Anemia with hemoglobin level 7.3 g/dL - Colon Polyps Diagnostic Results: - Kidney ultrasound: No significant abnormalities noted - Blood tests: Normal parameters, kidney function marginally improved - Urine tests: Results not worsening, specifics not detailed [facility] Medical History (Updated 11/05/24 @ 00:00 by Background Daemon) DVT (deep venous thrombosis) Depression Dementia Degenerative disease of nervous system, unspecified Multifactorial gait disorder Ataxia Peripheral neuropathy Arthritis Complex partial seizures Vitamin D deficiency TIA (transient ischemic attack) Seizure Alzheimer's dementia Anxiety Insomnia Osteoporosis Anemia Gait abnormality Partial symptomatic epilepsy with complex partial seizures, not intractable, without status epilepticus Asthma Pure hypercholesterolemia Peripheral arterial disease Unsteady gait Neuropathy Benign essential hypertension Alcoholism in remission Exertional dyspnea Surgical History Status post insertion of nerve stimulator Hx of foot surgery Hx of nasal septoplasty History of esophagogastroduodenoscopy (EGD) H/O colonoscopy History of angioplasty History of partial gastrectomy History of cholecystectomy History of cataract surgery History of hysterectomy History of tubal ligation S/P excision of neuroma Family History Father CVD (cardiovascular disease) Heart disease Hypertension Stroke Mother CVD (cardiovascular disease) Heart disease Asthma Maternal Grandmother No problems noted. Maternal Grandfather No problems noted. Paternal Grandmother No problems noted. Paternal Grandfather No problems noted. Maternal Aunt Tongue cancer Social History Household Members: None Housing: Assisted Living Facility Are you a primary care management associate to a significant other at home: No Do you presently have visiting nurse or other home services: No Alcohol intake: former Comment: NA Patient Tobacco Use Status: Former Tobacco user e-Cigarette/Vaping Use: Never Used Second Hand Smoke Exposure: No Advance Directives Date on File: 06/12/21 service: No Current occupational status: retired Current occupational exposures/hazards: No Cognitive needs: No Hearing needs: No Vision needs: Yes Physical Exam Vital Signs: Last Vital Signs Pulse 83 11/09/24 10:02 BP 144/66 H 11/09/24 10:02 Pulse Ox 97 11/09/24 10:02 Oxygen Delivery Method Room Air 11/09/24 10:02 BMI result Body Mass Index 16.5 Const General: comfortable Nutritional Appearance: well nourished Orientation/consciousness: patient oriented x3 HEENT Head: No normal to inspection Mouth: moist mucous membranes Neck Neck: Yes supple and Yes no JVD Resp Auscultation: clear to auscultation bilaterally and no rales Cardio Jugular venous distension: no JVD Palpation: no palpable S3 and no palpable S4 Heart sounds: no rubs GI Palpation (GI): Soft to palpation and nontender Percussion: No Fluid wave present General: Yes no CVA tenderness Back/Spine/Pelvis Back: no CVA tenderness Skin General skin exam: petechiae Neuro General: patient oriented x3 Extrem General: Yes no pedal edema and No clubbing Results Reviewed Nephrology Results: Hgb, (12.0-16.0) 7.3 g/dl L 11/04/24 WBC, (4.8-10.8) 3.6 X10*3/uL L 11/04/24 Plt Count, (160-400) 135 X10*3/uL L 11/04/24 Sodium, (135-145) 139 mmol/L 11/04/24 Potassium, (3.3-5.1) 4.6 mmol/L 11/04/24 Chloride, (96-108) 108 mmol/L 11/04/24 Carbon Dioxide, (22-29) 20 mmol/L L 11/04/24 BUN, (9-16) 54 mg/dL H 11/04/24 Creatinine, (0.5-1.4) 3.32 mg/dL H 11/04/24 Calcium, (8.4-10.2) 8.4 mg/dL Δ 11/04/24 Urine Protein, (Neg-Trace) Negative mg/dL 11/04/24 Urine Creatinine 56.35 mg/dL 11/03/24 Renal US 11/03/24 Assessment & Plan Assessment & Plan (1) Acute renal failure: Code(s): N17.9 - Acute kidney failure, unspecified Category: Medical Qualifiers: Acute renal failure type: unspecified Qualified Code(s): N17.9 - Acute kidney failure, unspecified (2) Anemia: Code(s): D64.9 - Anemia, unspecified Category: Medical Qualifiers: Anemia type: unspecified type Qualified Code(s): D64.9 - Anemia, unspecified Plan 79-year-old woman with the essentially normal renal function currently has acute kidney injury. Based on urine studies there was no evidence of glomerular nephritis or interstitial disease. Renal ultrasonogram was unremarkable for any obstruction There is cortical thinning suggestive of medical renal disease. She probably has acute tubular injury. Creatinine remains relatively stable. Shall monitor renal function next few weeks and if there is no improvement I will consider kidney biopsy. Ordered LDH, serum immunofixation Severe anemia iron stores were adequate Check stool for occult blood Check erythropoietin levels. She might need erythropoietin replacement therapy. Clinically she appears euvolemic. No signs or symptoms of uremia. She will follow closely with the team Orders: Orders Complete Blood Count Auto Diff 2 Weeks N17.9 - Acute kidney failure, unspecified Lactate Dehydrogenase 2 Weeks N17.9 - Acute kidney failure, unspecified Erythropoietin (EPO) 2 Weeks N17.9 - Acute kidney failure, unspecified Immunofixation, Random Urine 2 Weeks D64.9 - Anemia, unspecified, N17.9 - Acute kidney failure, unspecified Immunofixation Pnl, Serum 2 Weeks D64.9 - Anemia, unspecified, N17.9 - Acute kidney failure, unspecified Basic Metabolic Panel 2 Weeks N17.9 - Acute kidney failure, unspecified Coding Level of Care Code Est Pt Level 4 (00999) Diagnoses Acute renal failure, unspecified acute renal failure type N17.9 Acute renal failure type: unspecified Anemia, unspecified type D64.9 Anemia type: unspecified type
[2024-11-09 10:02] VITALS: BP 144/66; PULSE 83; O2SAT 97; BMI 16.5
--- OUTSIDE RECORDS SUMMARY | 2024-11-09 11:16 | XMS_ITS | Clinical Summary ---
Author Organization [address] [facility] Address [address] [place] [address] Phone Care Team Providers Care Rn Clinical Documentation Specialist Name Role Phone Espinoza Santiago MD Primary Care Provider [phone] Allergies Active Allergy Reactions Criticality Noted Date [...] propionate (FLONASE) 50 mcg/actuation nasal spray 1 [place] by Each Nare route daily. Active clopidogreL [...] Take 1 Tab by mouth daily. Active [id number] (Mega[employer] Hunters-3 Krill Oil) 061-40-96-50 mg capsule Take 1 Cap by mouth [...] Team Description 10/12/2024 Telephone [facility] [place] [address] [place] [phone] Maritza Webber PA provider call back from Last 3 Months Surgical History Surgery Date Site/Laterality Comments ANGIOPLASTY Bilateral PROCEDURE: HISTORICAL ANGIOPLASTY OTHER SURGICAL HISTORY 09/01/2022 PROCEDURE: SC SLCTV CATHJ 3RD+ ORD SLCTV ABDL PEL/LXTR BRNCH OTHER SURGICAL HISTORY 09/01/2022 PROCEDURE: SC SLCTV CATHJ EA 2ND+ ORD ABDL PEL/LXTR [...] [facility] [address] [place] [address] 06/28/2025 3:00 PM EDT Office Visit [facility] - [place] [address] [place] [id number] Maritza Webber PA [address] [facility] [address] [place] [address] Health Maintenance Due Date Last Done Comments [...] Documents on File Type Date Recorded 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
== END 2024-11-09 10:26 | disposition home or self-care (01) ==
LOC: HO.HKA 09:53
PROVIDERS: PCP Internal Medicine; Visit Provider Internal Medicine Hypertension Specialist
DX: N17.9 Acute kidney failure, unspecified (principal); D64.9 Anemia, unspecified
CPT/HCPCS: 99214

== ENCOUNTER → 2024-11-09 09:53 | Outpatient (BNVA) | payer MEDICARE, SELFPAY | PROVIDERS: PCP Internal Medicine; Visit Provider Internal Medicine Hypertension Specialist | DX: N17.9 Acute kidney failure, unspecified (principal); D64.9 Anemia, unspecified | CPT/HCPCS: 99212 ==

== ENCOUNTER 2024-11-24 15:28 | Outpatient (REF) | payer MEDICARE, SELFPAY ==
--- OUTSIDE RECORDS SUMMARY | 2023-08-18 04:30 | XMS_ITS ---
Author Organization [facility] Address [address] [place] [address] Care Team Providers Care Fiber Product Cutting Machine Operator Name Role Phone Jack HYLTON, [place] Primary Care Provider Unava ilsharron Umesh Ellsworth Unavailable [phone] BISHNU MCMULLEN Unavailable Unavailable REASON FOR VISIT screening,hx polyps Problems Problem Type SNOMED Code ICD Code Onset Dates Problem Status W/U Status Risk Notes Problem History of polyp of colon (situation) (164553650) Personal history of colonic polyps (Z86.010) Active confirmed Problem Diverticular disease of colon (588527019) Diverticulosis of large intestine without perforation or abscess without bleeding (K57.30) Active confirmed Encounters Encounter Location Date Provider Diagnosis [facility] Outpatient [address] [place], [place] [phone] 08/18/2023 Umesh Ellsworth Colon polyps K63.5 ; [...] * LEIA NERIOB: 6 (79 yo F)Acc No.[id number]:08/18/2023 COLON WITH MAC Patient: KRISSY FRAZIER Provider: Yolanda Ellsworth MD :1945 A ge:78 Y S ex:Female Date:08/18/2023 Address:[address] [place], [place] [phone] Pcp:Espinoza Santiago MD Subjective: * Chief Complaints: [...] 5385 LESION REMOVAL COLONOSCOPY, Modifiers: PT , 32667 COLONOSCOPE, SUBMUCOUS INJ, Modifiers: PT , 43403 COLONOSCOPY AND BIOPSY, Modifiers: 59 , PT, [...] 08/18/2023 Generated for Cynthia mckeon/Michael/Elyssaitting on: 0 11/24/2024 03:34 PM EDT
--- OUTSIDE RECORDS SUMMARY | 2023-12-31 03:30 | XMS_ITS ---
Author Organization [facility] Address [address] [place] [address] Care Team Providers Care Orthopedic Dentist Name Role Phone Jack HYLTON, [place] Primary Care Provider Unava Umesh Rodriguez Unavailable [phone] BISHNU MCMULLEN Unavailable Unavailable REASON FOR VISIT screening,hx polyps Encounters Encounter Location Date Provider Diagnosis [facility] [place] [address] [place], [place] [phone] 12/31/2023 Umesh Ellsworth Colon cancer scree rose [...] * MARILIN NERIISDOB: 6 (79 yo F)Acc No.[id number]:12/31/2023 COLON WITH MAC Patient: KRISSY FRAZIER Provider: Yolanda Ellsworth MD :1945 A ge:78 Y S ex:Female Date:12/31/2023 Address:[address] [place] [address] [phone] Pcp:Espinoza Santiago MD Subjective: * Chief Complaints: [...] 5385 LESION REMOVAL COLONOSCOPY, Modifiers: PT , [address]46 COLONOSCOPY AND BIOPSY, Modifiers: PT , 72515 COLONOSCOPE, SUBMUCOUS INJ, Modifiers: 59 , PT, [...] Ellsworth MD Date: 1 Generated for Cynthia mckeon/Michael/Alfonzoransmitting on: 0 11/24/2024 03:34 PM EDT
--- OUTSIDE RECORDS SUMMARY | 2024-06-21 12:20 | XMS_ITS ---
Author Organization [facility] Address [address] [place] [address] Care Team Providers Care Bottle House Pumper Name Role Phone Jack HYLTON, Espinoza Primary Care Provider Umesh Stephenson Unavailable [phone] BISHNU MCMULLEN Unavailable Unavailable REASON FOR VISIT Patient presents today for a F/U after removal of flat polyp Encounters Encounter Location Date Provider Diagnosis [facility] [address] [place] [phone] 06/21/2024 Umesh Ellsworth Plan Of Treatment No Information Progress Notes * LEIA NERIOB: 6 (79 yo F)Acc No.[id number]:06/21/2024 Progress Notes Patient: KRISSY FRAZIER Provider: Yolanda Ellsworth MD :1945 A ge:79 Y S ex:Female Date:06/21/2024 Address:[address] [place], [place] [phone] Pcp:Espinoza Santiago MD Subjective: * Chief Complaints: [...] Sign off status: Pending * Provider: Yolanda Ellsowrth MD Date: 0 06/21/2024 Generated for Cynthia mckeon/Michael/eTransmitting on: 0 11/24/2024 03:33 PM EDT
--- OUTSIDE RECORDS SUMMARY | 2024-11-24 15:33 | XMS_ITS | Patient Health Record ---
Author Organization [facility] Address [address] [place] [address] Care Team Providers Care Supervisor Rubber Covering Name Role Phone Eron Santiago MDneth Primary Care Provider Ike Wolfe Unavailable [phone] Allergies Allergen (clinical drug ingredient) Drug/Non Drug [...] primary osteoarthritis of the ankle and/or foot (027704708) Primary osteoarthrit is, right ankle and foot (M19.071) Active confirmed Problem Localized, primary osteoarthritis of the ankle and/or foot (070415750) Primary osteoarthrit is, left ankle and foot (M19.072) Active confirmed Problem Acquired hammer toe of right foot (7962656193813732) Other hammer toe(s) (acquired), right foot (M20.41) Active confirmed Problem Acquired hammer toe of left foot (1538616669998115) Other hammer toe(s) (acquired), left foot (M20.42) [...] X ray : Foot, right 3V 08/02/2017 27714, [id number]-EFRNG/INJECT, JOINT/BURSA 0 08/30/2017 99760, B1172-VEYVA/INJECT, JOINT/BURSA 1 2017 24634- Unna Boot 11/24/2017 Insurance Providers Payer Name Payer Address Payer Phone Subscriber Number Group Number Insured Name Patient Relationship to Insured Coverage Start Date Coverage End Date Medicare National Govt Svcs Inc [address] [facility] [place] [address] [id number] Cary Davis Self - patient is the insured 1 [employer] [address] [place] [address] [id number] Cary Davis Self - patient is the [...] Clots in the legs 0 03/2017 [facility] dizziness, nausea, drive hieves, deh ydration 09/27/2017 [facility] L3rd toe 01/14/2018 [facility]-sever leg pain blood clots / Afib 20 21
--- OUTSIDE RECORDS SUMMARY | 2024-11-24 15:34 | XMS_ITS | Patient Health Record ---
Author Organization [facility] Address [address] [place] [address] Care Team Providers Care On Air Announcer Name Role Phone Espinoza Santiago MD Primary Care Provider Umesh Stephenson Unavailable [phone] MCMULLENBISHNU VILLAVICENCIO Unavailable Unavailable Allergies Allergen (clinical drug ingredient) [...] Results Component Value Reference Range Notes Pathology (Not yet reviewed by provider) Interpretation: Performing Lab:[facility], [address] [place] [id number] Notes/Report: CT abdomen pelvis w con (Not yet reviewed by provider) Interpretation: Performing Lab: Notes/Report: [address] [address] [address] Scan Report Signed Patient: Krissy Neri MR#: [id number] 80 : 1945 Acct:[id number] Age/Sex: 78 / F ADM Date: 02/07/24 Loc: HO.CT Attending Dr: Umesh Ellsworth MD Ordering Physician: Umesh Ellsworth MD Date of Service: 02/07/24 Procedure(s): CT abdomen pelvis w IV con Accession Number(s): [id number] cc: Espinoza Santiago MD; Umesh Ellsworth MD [...] in the subcutaneous tissues cephalad beyond the [id number]-gb-nqbv LYMPH NODES: No retroperitoneal lymphadenopathy. VASCULAR: Calcific [...] 02/07/24 1552 DD/ 1116 TD/TT: 02/07/24 1128 Assistant Professor Of Biology: SS Reason For Referral No Information Medications Medication [...] as directed Orally Active Campral 333mg Not-Ta saad Aspirin 81 81 MG 1 tablet Orally [...] Status Risk Notes Problem Colon cancer screening (951555213) Colon cancer screening (Z12.11) Active confirmed Problem 965969454 Encounter for screening for malignant neoplasm of colon (Z12.11) Active confirmed Problem 410269565 History of adenomatous polyp of colon (Z86.010) Active confirmed Problem History of polyp of colon (situation) (815420739) Personal history of colonic polyps (Z86.010) Active confirmed Problem Diverticular disease of colon (692661783) Diverticulosis of large intestine without perforation or abscess without bleeding (K57.30) Active confirmed Problem Screening for malignant neoplasm of rectum (548377826) Encounter for screening for malignant neoplasm of rectum (Z12.12) Active confirmed Problem 70200989 Other iron deficiency anemia (D50.8) Active confirmed Problem 08570761 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) Active confirmed Problem 21366094169504 Long-term curren t use of anticonvulsant (Z79.899) Active confirmed Problem Adenoma of transverse colon (254586906) Adenoma of transverse colon (D12.3) Active confirmed Problem 603918087 H/O long-term (current) use of anticoagulants (Z92.29) Active confirmed Encounters Encounter Location Date Provider Diagnosis [facility] [address] [place] [phone] 12/31/2023 Umesh Ellsworth Colon cancer screeni ng Z12.11 ; Colon polyps K63.5 ; Diverticulosis of large intestine without perforation or abscess without bleeding K57.30 and Other hemorrhoids K64.8 [facility] [address] [place] [phone] 01/03/2024 Umesh Ellsworth Adenoma of transvers e colon D12.3 [facility] [address] [place] [phone] 02/11/2024 Umesh Ellsworth [facility] [address] [place] [phone] 05/04/2024 Umesh Ellsworth [facility] [address] [place] [phone] 06/20/2024 Umesh Ellsworth Assessments Encounter Date Diagnosis (ICD Code) Assessment Notes Treatment Notes Treatment Clinical Notes Section Notes 12/31/2023 Colon cancer screening (ICD-10 - Z12.11) 12/31/2023 Colon polyps (ICD-10 - K63.5) 01/03/2024 Adenoma of transverse colon (ICD-10 - D12.3) 12/31/2023 Diverticulosis of large intestine without perforation [...] Date MEDICARE OF [place] [address] [place] [address] [phone] [id number] ALISHASONSINDHU KRISSY Self - patient is the insured [employer] ATTN CLAIMS [address] [place] [address] [id number] ALISHASONSINDHU KRISSY Self - patient is the insured Medical (General) History Medical History History ICD Code Asthma Anxiety/depression Alcohol abuse---abstinenet 2010 Denies MT,DM,CVA,renal disease IBS--negative duodenal and c olonic biopsies in 06/2011--no microscopic colitis, no celiac disease Tubular adenomas removed in 2002, 2003, and 2005---negative colonoscopy in 06/2011 GERD--EGD in 06/2011--no esophagitis, nor mal duodenl biopsies TIA in 2013--transient left-sided weakne ss HTN PAD Varicose veins TIA /w seizure DVT's-needed thrombectomies-sees Dr. Cecily taylor at [facility] Chronic anemia in relation to her previo us [place] I surgery Colonoscopy in June of 2016 with removal of a single polyp--the polyp was not recovered and therefore there was no pathology report Osteoporosis Colonoscopy 11/2019 with 2 cecal tubular adenomas Surgical History Surgery Date(Month/Year) 1974-Partial gastrectomy with B-I for PU D CCY Hysterectomy with removal of left ovary Foot surgery-bone spurs--both feet [employer] Spine Stimulator [phone] for pain put in by Dr. Sebastian 01/2023
--- OUTSIDE RECORDS SUMMARY | 2024-11-24 15:34 | XMS_ITS | Clinical Summary ---
Author Organization [facility] Address [address] [place] [address] Phone Care Team Providers Care Development Eng Name Role Phone Espinoza Santiago MD Primary Care Provider [phone] Allergies Active Allergy Reactions Criticality Noted Date [...] propionate (FLONASE) 50 mcg/actuation nasal spray 1 [place] by Each Nare route daily. Active clopidogreL [...] Take 1 Tab by mouth daily. Active funjo-go-0-dha-e lg-ixyfkgw-bhq (MegaRed [place]-3 Krill Oil) 199-65-64-50 mg capsule Take 1 Cap by mouth [...] back pain 01/18/2024 PVD (peripheral vascular disease) ([facility]/HCC V24) 01/18/2024 Varicose veins of bilateral lower extremities wi th pain 01/18/2024 Encounters Date Type Department Care Team Description 10/12/2024 Telephone Vascular Surgery - [place] [address] [place] [phone] Maritza Webber PA from Last 3 Months Surgical History Surgery [...] ease) (CMS/HCC V24) DX:PVD (peripheral vascular disease) ([facility]) Varicose veins of bilateral lower extremities with [...] Description 05/18/2025 1:30 PM EST Ancillary Procedure [facility] [address] [place] [phone] 06/28/2025 3:00 PM EDT Office Visit Vascular Surgery - [place] [address] [place] [phone] Maritza Webber, JAYDE [address] [place] [phone] Health Maintenance Due Date Last Done Comments [...] Documents on File Type Date Recorded Patient Social Media [facility] Decision (hx) 06/16/2020 GENE JACKSON DIRECTIVE Care Teams Development Eng Relationship Specialty Start Date End Date Espinoza Santiago MD [address] [place] [address] [address] [place] PCP - General Internal Medicine 02/15/13
[2024-11-24 16:43] LABS: Anion Gap 17 (12-20); Blood Urea Nitrogen 99 mg/dL (9-16); Calcium 8.3 mg/dL (8.4-10.2); Carbon Dioxide 17 mmol/L (22-29); Chloride 110 mmol/L (96-108); Potassium 5.6 mmol/L (3.3-5.1); Sodium 138 mmol/L (135-145)
[2024-11-24 16:47] LABS: Estimated Glomerular Filt Rate 5
== END 2024-11-24 15:29 | disposition home or self-care (01) ==
LOC: HO.LAB 15:28
PROVIDERS: PCP Internal Medicine; Visit Provider Internal Medicine Hypertension Specialist
DX: Z01.84 Encounter for antibody response examination (principal); D64.9 Anemia, unspecified; N17.9 Acute kidney failure, unspecified
CPT/HCPCS: 80048; 82550; 82668; 82784; 83615; 86334; 86335

== ENCOUNTER 2024-11-24 20:15 | Inpatient (IN) | payer MEDICARE, SELFPAY ==
--- OUTSIDE RECORDS SUMMARY | 2023-08-18 04:30 | XMS_ITS ---
Author Organization [facility] Address [address] [place] [address] Care Team Providers Care Office Auditor Name Role Phone Jack HYLTON, [place] Primary Care Provider Unashwetha ilsharron Umesh Ellsworth Unavailable [phone] BISHNU MCMULLEN Unavailable Unavailable REASON FOR VISIT screening,hx polyps Problems Problem Type SNOMED Code ICD Code Onset Dates Problem Status W/U Status Risk Notes Problem History of polyp of colon (situation) (159530599) Personal history of colonic polyps (Z86.010) Active confirmed Problem Diverticular disease of colon ([id number]) Diverticulosis of large intestine without perforation or abscess without bleeding (K57.30) Active confirmed Encounters Encounter Location Date Provider Diagnosis [facility] Out[facility] [address], [place] [id number] 08/18/2023 Umesh Ellsworth Colon polyps K63.5 ; Personal history of colonic polyps Z86.010 ; Diverticulosis of large intestine without perforation or abscess without bleeding K57.30 and Other hemorrhoids K64.8 Assessments Encounter Date Diagnosis (ICD Code) Assessment Notes Treatment Notes Treatment Clinical Notes Section Notes 08/18/2023 Colon polyps (ICD-10 - K63.5) 08/18/2023 Personal history of colonic polyps (ICD-10 - Z86.010) 08/18/2023 Diverticulosis of large intestine without perforation or abscess without bleeding (ICD-10 - K57.30) 08/18/2023 Other hemorrhoids (ICD-10 - K64.8) Plan Of Treatment No Information Progress Notes * LEIA NERIOB: 6 (79 yo F)Acc No.[id number]:08/18/2023 COLON WITH MAC Patient: KRISSY FRAZIER Provider: Yolanda Ellsworth MD :1945 A ge:78 Y S ex:Female Date:08/18/2023 Address:[address] [place], [place] [phone] Pcp:Espinoza Santiago MD Subjective: * Chief Complaints: * 1 . Screening,hx polyps. * Medical History: Objective: * Vitals: Assessment: * Assessment: 1. C olon polyps - K63.5 (Primary) 2 . P ersonal history of colonic polyps - Z86.010 3 . D iverticulosis of large intestine without perforation or abscess without bleeding - K57.30 4 . O ther hemorrhoids - K64.8 Plan: * Treatment: * Procedure Codes: 4 5385 LESION REMOVAL COLONOSCOPY, Modifiers: PT , 38243 COLONOSCOPE, SUBMUCOUS INJ, Modifiers: PT , 31317 COLONOSCOPY AND BIOPSY, Modifiers: 59 , PT, 0529F INTRVL 3+YRS PTS CLNSCP DOCD, 0528F RCMND FLW-UP 10 YRS DOCD, Modifiers: 8P * * The named appointment provid er may or may not be the originator of this progress note, and it is not deemed complete until electronically signed by the appointment provider. Sign off status: Pending * Provider: Yolanda Ellsworth MD Date: 0 08/18/2023 Generated for Cynthia mckeon/Michael/Elyssaitting on: 0 11/25/2024 02:02 AM EDT
--- OUTSIDE RECORDS SUMMARY | 2023-12-31 03:30 | XMS_ITS ---
Author Organization [facility] Address [address] [place] [address] Care Team Providers Care Commercial Technician Name Role Phone Jack HYLTON, [place] Primary Care Provider Unava Umesh Rodriguez Unavailable [phone] BISHNU MCMULLEN Unavailable Unavailable REASON FOR VISIT screening,hx polyps Encounters Encounter Location Date Provider Diagnosis [facility] [place] [address] [place], [place] [phone] 12/31/2023 Umesh Ellsworth Colon cancer scree rose [...] * MARILIN NERIISDOB: 6 (79 yo F)Acc No.[id number]:12/31/2023 COLON WITH MAC Patient: KRISSY FRAZIER Provider: Yolanda Ellsworth MD :1945 A ge:78 Y S ex:Female Date:12/31/2023 Address:[address] [place] [address] [phone] Pcp:Espinoza Santiago MD Subjective: * Chief Complaints: [...] 5385 LESION REMOVAL COLONOSCOPY, Modifiers: PT , [address] COLONOSCOPY AND BIOPSY, Modifiers: PT , [address] COLONOSCOPE, SUBMUCOUS INJ, Modifiers: 59 , PT, [...] 1 Generated for Cynthia mckeon/Michael/Kiransmitting on: 0 11/25/2024 02:02 AM EDT
--- OUTSIDE RECORDS SUMMARY | 2024-06-21 12:20 | XMS_ITS ---
Author Organization [facility] Address [address] [place] [address] Care Team Providers Care Campaign Assistant Name Role Phone Jack HYLTON, Espinoza Primary Care Provider Umesh Stephenson Unavailable [phone] BISHNU MCMULLEN Unavailable Unavailable REASON FOR VISIT Patient presents today for a F/U after removal of flat polyp Encounters Encounter Location Date Provider Diagnosis [facility] [address] [place] [phone] 06/21/2024 Umesh Ellsworth Plan Of Treatment No Information Progress Notes * LEIA NERIOB: 6 (79 yo F)Acc No.[id number]:06/21/2024 Progress Notes Patient: KRISSY FRAZIER Provider: Yolanda Ellsworth MD :1945 A ge:79 Y S ex:Female Date:06/21/2024 Address:[address] [place], [place] [phone] Pcp:Espinoza Santiago MD Subjective: * Chief Complaints: [...] 06/21/2024 Generated for Cynthia mckeon/Michael/eTransmitting on: 0 11/25/2024 02:01 AM EDT
--- NOTE | ~2024-11-24 | CT_ITS ---
CLINICAL HISTORY: RONY on CKD CT abdomen and pelvis without contrast Comparison: CT of the abdomen and pelvis from 02/07/2024 Findings: Bnuiu-sx-unzesnot pericardial effusion with cardiomegaly noted. Bibasilar atelectasis and/or scarring. Liver surface nodularity motion. Spleen approaches the upper limits of normal. Bilateral adrenal hyperplasia noted with partial obscuration. Pancreas mostly obscured in this noncontrast study with artifacts. Multiple bilateral nephrolithiasis present, left greater than right. Stones in the left kidney measure up to 5 mm. Mild -minimal dilatation of the right ureter without obstructing stone imaged right ureter. Vascular calcifications noted. Gallbladder is surgically absent. No new or enlarged lymphadenopathy by noncontrast CT. Mild free fluid in the abdomen pelvis nonspecific. Bowel wall anomaly evaluated without intravenous contrast. Severe stool burden. No small bowel obstruction. Uterus is absent. Mild wall thickening of the urinary bladder is nonspecific. Subcutaneous edema is diffuse. Trace left pleural effusion noted. Left-sided dorsal of the glottis with superiorly directed leads partially imaged in superficial to imaged spine. Degenerative changes include the hips, SI joints, and spine. Grade 1 anterolisthesis of the L4-L5. Facet arthropathy is multifocal. IMPRESSION: 1. Severe stool burden. No small bowel obstruction. 2. Mild free fluid in the abdomen pelvis nonspecific and may be reactive. Fluid of the anasarca also considered with a trace-small left pleural effusion. Infected fluid is not excluded by CT. 3. Bilateral nephrolithiasis without hydronephrosis. 4. Wall thickening of the urinary bladder is nonspecific. 5. Cardiomegaly This document has been electronically signed by: Viet Omalley MD on 11/24/2024 23:12:06
--- NOTE | ~2024-11-24 | CT_ITS ---
PROCEDURE: CT GUIDED BIOPSY, KIDNEY CLINICAL INFORMATION: Chronic kidney disease with evidence of acute kidney injury COMPARISON: None available. TECHNIQUE: Following explaining CT fluoroscopy guided kidney biopsy procedure, benefits and risk, a written consent was obtained. Patient was placed prone on CT fluoroscopy table and preliminary CT imaging was obtained. Lead markers were placed over the skin along the right posterior lateral kidney and repeat CT imaging was performed. Optimal marker was selected and marked the skin. 1% lidocaine was administered puncture site. Conscious sedation was given during the exam. At the puncture site 1% lidocaine was injected. Through a small skin incision a 20-gauge guide needle was advanced from the skin into the lower pole of right kidney. Coaxially a biopsy gun was administered and it 3 pass core biopsy of the kidney was performed. Subsequently Gelfoam was inserted to achieve hemostasis. The guide needle was subsequently removed and repeat CT imaging obtained. Sterile dressing applied post procedure. Patient tolerated procedure extremely well. This CT examination was performed using dose optimization techniques as appropriate, variously including the following: *Automated exposure control *Adjustment of mA and/or kV according to patient size (this includes techniques or standardized protocols for targeted exams where dose is matched to indication/reason for exam; i.e. extremities or head) *Use of iterative reconstruction technique FINDINGS: On preliminary CT imaging there is a punctate calculi lower pole right kidney. CT fluoroscopy guided 20-gauge biopsy gun was administered coaxially and a 3 pass biopsy was performed. Post procedure imaging revealed a small perinephric hematoma and air collection. CT/CT biopsy renal RT IMPRESSION: Small 2 mm radiopaque calculi lower pole right kidney. There is no caliectasis or hydronephrosis. Successful CT fluoroscopy guided right kidney lower pole core biopsy. Postprocedure small perinephric hematoma is seen. Electronically signed by: Moy Gilliland MD 11/30/2024 09:18 AM EDT
--- NOTE | ~2024-11-24 | CT_ITS ---
EXAMINATION: CT CHEST WITHOUT CONTRAST CLINICAL INFORMATION: Weight loss COMPARISON: Chest x-ray 09/27/2024. CT abdomen pelvis without contrast 11/24/2024. CT chest 10/08/2016 TECHNIQUE: Multidetector volumetric CT imaging of the chest was done. Axial MIP volume rendering provided. Sagittal and coronal reformatted images were obtained. This CT examination was performed using dose optimization techniques as appropriate, variously including the following: *Automated exposure control *Adjustment of mA and/or kV according to patient size (this includes techniques or standardized protocols for targeted exams where dose is matched to indication/reason for exam; i.e. extremities or head) *Use of iterative reconstruction technique DLP: 153 mGy.: FINDINGS: LOGISTICS COORDINATOR: Hyperinflated lungs LUNGS: There is diffuse centrilobular emphysema with linear scarring in both upper lobes and dependent both lower lobes and lateral segments. Minimal scarring atelectasis is also seen right middle lobe and lingula. There is a large spiculated mass right central upper lobe measuring 2.2 x 1.6 x 2.0 cm axial image 37/4. There is linear stranding extending from this mass medially to the mediastinum and superiorly to the right apical lateral pleura. 2 mm nodules are seen in the left upper lobe peripherally based axial image 38/4, axial image 39/4, right lower lobe axial image 105/4. There is mild thickening and left superior major fissure. MEDIASTINUM: Central trachea and the bronchi are widely patent. Thyroid lobes are symmetric and normal. Heart size is normal. There is a small pericardial effusion . Small shotty lymph nodes are seen in the mediastinum. Ascending thoracic aorta measures 4 x 4 cm. CORONARY ARTERY CALCIFICATION: Mild coronary artery calcifications are present. PLEURA: There is a small left pleural effusion. There is minimal right basilar posterior pleural thickening AXILLA: No abnormal size axillary lymph nodes seen UPPER ABDOMEN: Visualized liver, spleen, pancreas and bilateral adrenal glands are unremarkable. OSSEOUS STRUCTURES: No osseous lytic or sclerotic process seen. There is neural electrode seen in the lower cervical and upper thoracic spine. CT/CT chest wo IV con IMPRESSION: Large 2.2 cm spiculated lesion in the right upper lobe most suspicious for primary lesion. There are scattered tubular punctate nodules in both lungs. Recommend PET CT exam for further evaluation. Diffuse emphysema with scarring. No abnormal mediastinal or axillary lymphadenopathy. Small pericardial and a small left pleural effusion seen. Minimal right posterior pleural thickening. Fleischner guidelines were followed. Electronically signed by: Moy Gilliland MD 11/27/2024 07:28 AM EDT RP
--- NOTE | ~2024-11-24 | XR_ITS ---
CLINICAL HISTORY: cough --- Additional Notes or Special Instructions: transport said pt is eating, 2 view chest x-ray Comparison: None provided Findings: Blunting of the right costophrenic angle. Normal size heart. Mild osteopenia. Multiple surgical clips in the GE junction region. IMPRESSION: 1. Small right pleural effusion. 2. Multiple surgical clips in the gastroesophageal junction region. 3. Mild osteopenia. This document has been electronically signed by: Ariel Phillips MD on 12/02/2024 14:26:47
--- NOTE | ~2024-11-24 | IR_ITS ---
CLINICAL HISTORY: End-stage renal disease. The patient presents to interventional radiology for conversion of a temporary dialysis catheter to a tunneled central venous catheter for hemodialysis. PROCEDURES: 1. Removal of temporary dialysis catheter via the right neck 2. Placement of a 15.5 fr 23 tip to cuff cm tunneled, dual-lumen hemodialysis catheter. Clinician: Almas Warren NP MEDICATIONS: -Lidocaine 1% 10 mL SQ. -Antibiotics: n/a -For additional details, please see nursing flowsheet. COMPLICATIONS: None. ESTIMATED BLOOD LOSS: <5 ml SPECIMENS: None FLUOROSCOPY TIME: 0.2 min MODERATE SEDATION TIME: 0 min PROCEDURE NOTE: The procedure, risks, benefits, and alternatives were carefully explained to patient, and written informed consent was obtained. The patient was placed supine on the fluoroscopy table. A timeout was performed. The right neck and chest was prepped and draped in usual sterile fashion. Local anesthesia was administered to the access site with lidocaine. A 0.018 guidewire was advanced to the IVC through the pre-existing temporary dialysis catheter in the right neck. Next, subcutaneous lidocaine was administered to the chest. Using blunt dissection, a subcutaneous tunnel was created that connects from the upper chest to the right neck site. The dialysis catheter was pulled through the tunnel. The tract in the vein was dilated and a peel-away sheath was advanced over the wire. The catheter was advanced through the sheath, which was subsequently peeled away. The catheter was tested, flushed, and sutured to the skin with its tip in the high right atrium. A permanent fluoroscopic image of the chest was saved to PACS. The catheter ports were packed with heparin per routine protocol. The patient was stable after the procedure and was transferred to the post anesthesia care unit. This procedure was performed with a dedicated nurse and continuous monitoring of vital signs. FINDINGS: 1. Conversion of right neck temporary dialysis catheter to tunneled dialysis catheter. IR/IR cvc insert central tunnel IMPRESSION: Successful conversion of right neck temporary dialysis catheter to tunneled dialysis catheter . PLAN: -The catheter may be used immediately. This procedure was performed by Almas Warren NP, and directly supervised by Bob Muse M.D.. Electronically signed by: Bob Muse MD 12/12/2024 05:08 PM EDT Workstation: [id number]
--- NOTE | ~2024-11-24 | CT_ITS ---
CLINICAL HISTORY: ?Acute stroke, CT head without contrast Comparison: None provided Findings: No intra-axial mass, midline shift, hydrocephalus, or acute hemorrhage. There is moderate diffuse atrophy. The visualized paranasal sinuses and mastoid air cells are normal. The orbits are within normal limits. No skull fracture. IMPRESSION: 1. No acute intracranial findings. This document has been electronically signed by: Walter Mullen MD on 12/03/2024 11:13:07
--- NOTE | ~2024-11-24 | CT_ITS ---
EXAMINATION: CT HEAD WITHOUT CONTRAST CLINICAL INFORMATION: lung CA, check for brain mets, dementia COMPARISON: September 07, 2017 TECHNIQUE: Contiguous axial imaging was performed from the skull base to vertex without intravenous administration of contrast. This CT examination was performed using dose optimization techniques as appropriate, variously including the following: *Automated exposure control *Adjustment of mA and/or kV according to patient size (this includes techniques or standardized protocols for targeted exams where dose is matched to indication/reason for exam; i.e. extremities or head) *Use of iterative reconstruction technique DLP: 683 mGy-cm FINDINGS: No acute intracranial hemorrhage, mass effect, midline shift, hydrocephalus or herniation. Prominence of the extra-axial CSF spaces along the hemicranial convexities measuring less than 4 mm likely related to volume loss. Ferguson-white matter differentiation is normal. Posterior cranial fossa contents demonstrated no acute hemorrhage or gross mass effect. Calcified plaques in the V4 segments of the vertebral arteries the proximal basilar artery and the cavernous supracavernous segments both ICAs. Sellar/suprasellar region demonstrated no gross masses. Craniocervical junction demonstrates normal position of the cerebellar tonsils. Prominence of the extra-axial CSF spaces and cerebral sulci along the frontoparietal lobes. No air-fluid levels in the paranasal sinuses. There is a nasal septum defect. There is poor pneumatization of the frontal sinuses. Tympanic cavities are aerated. Poor pneumatization of the mastoid cells. Incomplete fusion posterior arch of C1. No gross lytic or blastic lesions the bony calvarium. CT/CT head/brain wo IV con IMPRESSION: No acute intracranial hemorrhage. Bifrontal parietal lobe atrophy. Focal nasal septum defect. Electronically signed by: Eric Orosco MD 11/27/2024 03:18 PM EDT
--- NOTE | ~2024-11-24 | US_ITS ---
CLINICAL HISTORY: venous and arterial, RONY Renal duplex ultrasound Comparison: CT/REG/SR - CT ABDOMEN PELVIS WO IV CON - 11/24/24 22:00 EDT Technique: Real time duplex ultrasound imaging was performed by the tanker service attendant. Multiple account retention representative static images were saved for review. Findings: Aorta: Calcified atherosclerotic disease, patent with normal arterial waveform, 102 cm/s. Right kidney: Mildly small and diffusely increased echogenicity, 8.7 cm length. 3 mm calculus in the upper pole and likely punctate calculus in the lower pole, no hydronephrosis. Scattered echogenic papilla, more conspicuous in the midpole. Main renal artery peak systolic velocities: Proximal: 38.2 cm/s Mid: 48.9 cm/s Distal: 71 cm/s Segmental resistive index: 0.78-0.89 Renal vein: Patent. Left kidney: Small and diffusely echogenic, 7.9 cm length. 4 mm calculus in the lower pole, no hydronephrosis. Diffusely echogenic papilla. Main renal artery peak systolic velocities: Proximal: 77.8 cm/s Mid: 74.5 cm/s Distal: 58.5 cm/s Segmental resistive index: 0.67 -0.88 Renal vein: Patent. Impression: 1. Mildly small kidneys with diffusely echogenic renal parenchyma, suggestive of medical renal disease. 2. Sonographic findings are concerning for bilateral sloughed papillary necrosis. 3. Nonobstructing bilateral nephrolithiasis. 4. Mildly elevated segmental resistive indices bilaterally. This document has been electronically signed by: Frances Escalante MD on 11/25/2024 11:04:13
--- NOTE | ~2024-11-24 | IR_ITS ---
PROCEDURE: IR INSERTION OF TUNNEL CATHETER CLINICAL INFORMATION: Renal failure. Need dialysis catheter. COMPARISON: None available. TECHNIQUE: Following explaining fluoroscopy ultrasound-guided placement of temporary dialysis catheter procedure, benefits and risk, a written consent was obtained. Patient was placed supine on angiography table and pulmonary ultrasound imaging was obtained through the right neck. An optimal site was selected and marked on the skin. The marked site was cleaned and draped in usual sterile manner. 1% lidocaine was administered puncture site. Only fentanyl was given intravenously. Patient had oral feces throughout the the date. Under sterile ultrasound is a singlewall needle was advanced and right jugular vein above the clavicle was punctured. After observing venous return a thin guidewire was advanced through the needle and needle removed. A 5 [place] dilator was placed over the guidewire. The small guide wire was exchanged for a 0.035 inch guidewire and placed in IVC and the tract was dilated from 5 [place] to 12 [place] dilator. A 20 cm long 12 [place] Mahurker dialysis catheter was placed over the guidewire. The catheter was stitched with 3-0 nylon sutures at the neck. The guide was removed and both ports of the dialysis were flushed with heparinized saline. Sterile dressing was placed over the catheter site. All elements of maximal sterile barrier technique followed including use of cap, mask, sterile gown, sterile gloves, a sterile full body drape and hand hygiene. Also followed skin preparation with 2% chlorhexidine for cutaneous antisepsis, and sterile ultrasound preparation with sterile gel and probe cover when applicable. FINDINGS: On ultrasound imaging the SVC is widely patent. Images were obtained for documentation. Approximately 22 cm long 12 [place] Mahurkar catheter was placed under ultrasound fluoroscopy guidance. The tip lies in distal SVC and is ready for use. IR/IR cvc insert non tunnel IMPRESSION: Successful ultrasound and fluoroscopy-guided placement of right jugular temporary dialysis catheter. The catheter is ready for use. Fluoroscopy time: 0.3 minutes. Dose area product: 1.01 mGy/cm. Electronically signed by: Moy Gilliland MD 12/05/2024 04:31 PM EDT
[2024-11-24 20:21] VITALS: BP 164/68; PULSE 78; RESP 18; TEMP 36.1; O2SAT 96; BMI 16.0
[2024-11-24 20:45] LABS: Appearance Urine Clear; Glucose Urine UA Negative (Negative); PH 5.0 (5.0-9.0); Specific Gravity - Urine 1.010 (1.005-1.025); UMIC TRIGGER UACC YES
[2024-11-24 20:48] LABS: UACC Culture Trigger YES
--- NOTE | 2024-11-24 21:22 | ECG_ITS ---
Test Reason : ABNORMAL LABS Blood Pressure : */* mmHG Vent. Rate : 75 BPM Atrial Rate : 75 BPM P-R Int : 186 ms QRS Dur : 78 ms QT Int : 378 ms P-R-T Axes : 57 -7 65 degrees QTcB Int : 422 ms Normal sinus rhythm Normal ECG When compared with ECG of 04-Nov-2024 05:30, No significant change was found Referred By: Norma Bergeron Electronically Signed By: Hemal Schaefer
--- NOTE | 2024-11-24 21:41 | ED_ITS ---
HPI - General Adult General Chief complaint: Recheck/Abnormal Lab/Rx Stated complaint: sent by kidney function low/ dehydration Time Seen by Provider: 11/24/24 21:32 Source: patient Mode of arrival: ambulatory Limitations: no limitations History of Present Illness ED Provider: Mio DONOHUE HPI narrative: The patient is a 79-year-old female with history of hypertension, PID, hyperlipidemia, asthma, anemia, Alzheimer's disease, chronic pain syndrome, CKD, syncope, and history of alcoholism in remission, presenting to the ED for evaluation after her PCP called her and reported her routine lab screening showed significant drop in her kidney function. The patient's chart review reveals laboratory evaluation conducted at 15:45 today showed hyperkalemia at 5.6 with BUN 99 and creatinine 7.49. The patient's previous labs on file demonstrate normal potassium, BUN of 54, and creatinine of 3.32. The patient reports she was seen for a colonoscopy in August which revealed multiple polyps, some precancerous but no reported cancerous lesions. Patient reports since August she has been experiencing waxing and waning diarrhea, occasionally with hematochezia, but not recently. The patient also reports she has been experiencing decreased urination, left-sided abdominal pain and bilateral flank pain for the past 7-10 days. Patient denies associated fever/chills, nausea, vomiting, chest pain, shortness of breath, dysuria, hematuria, recent sick contacts, or recent trauma. Related Data Previous Rx's ?Medication ?Instructions ?Recorded inhalational spacing device #10 ea 06/10/22 (Aerochamber MV spacer) fluticasone propionate 50 2 spray intranasal DAILY PRN for 11/28/23 mcg/actuation nasal allergies #48 mL spray,suspension aspirin 81 mg tablet,delayed 81 mg PO DAILY 90 days #9 0 tabs 11/29/23 release clonazepam 0.5 mg tablet 0.5 mg PO BID PRN anxiety 30 days 11/29/23 #60 tabs clonazepam 1 mg tablet 1 mg PO BEDTIME PRN anxiety 30 11/29/23 days #30 tabs lamotrigine 200 mg tablet 200 mg PO DAILY 30 days #30 tabs 11/29/23 sertraline 50 mg tablet 50 mg PO DAILY 90 days #90 t abs 11/29/23 trazodone 100 mg tablet 100 mg PO DAILY 90 days #90 tabs 11/29/23 cholecalciferol (vitamin D3) 25 25 mcg PO DAILY 90 day s #90 caps 03/06/24 mcg (1,000 unit) capsule fluticasone propionate 110 1 puff PO BID #12 ea mcg/actuation HFA aerosol inhaler albuterol sulfate 90 mcg/actuation 2 puff PO Q6H PRN s hortness of 04/19/24 aerosol inhaler breath or wheezing #8.5 ea simvastatin 20 mg tablet 20 mg PO BEDTIME #90 tabs memantine 5 mg tablet 5 mg PO BID 90 days #180 tab s 09/27/24 clopidogrel 75 mg tablet 75 mg PO DAILY #90 tabs 10/20 06/13 duloxetine 30 mg capsule,delayed 30 mg PO BID #180 cap s 11/01/24 release Allergies Allergy/AdvReac Type Severity Reaction Status Date / Time morphine (Morphine) Allergy Severe VOMITING/LONGORIA Verified 11/24/24 20:24 LLUCINATION S codeine (Codeine) Allergy Intermediate VOMITING/HALLUCINATIONS, Verified 11/24/24 20:24 nause/extended abdomen latex Allergy Unknown Unknown Verified 11/24/24 20:24 atorvastatin AdvReac Intermediate fever, Verified 11/24/24 20:24 chills, abd pain, numbness capsaicin (CAPSAICIN) AdvReac Intermediate BURNING Verified 11/24/24 20:24 bacitracin Allergy Intermediate redness Uncoded 11/24/24 20:24 and itching adhesives Allergy Mild rash Uncoded 11/24/24 20:24 Review of Systems 2 Review of Systems: Yes all other systems are reviewed and are negative PMFSH Past Medical History Medical History (Updated 11/25/24 @ 00:47 by Mio Edwards PA-C) DVT (deep venous thrombosis) Depression Dementia Degenerative disease of nervous system, unspecified Multifactorial gait disorder Ataxia Peripheral neuropathy Arthritis Complex partial seizures Vitamin D deficiency TIA (transient ischemic attack) Seizure Alzheimer's dementia Anxiety Insomnia Osteoporosis Anemia Gait abnormality Partial symptomatic epilepsy with complex partial seizures, not intractable, without status epilepticus Asthma Pure hypercholesterolemia Peripheral arterial disease Unsteady gait Neuropathy Benign essential hypertension Alcoholism in remission Exertional dyspnea Surgical History Status post insertion of nerve stimulator Hx of foot surgery Hx of nasal septoplasty History of esophagogastroduodenoscopy (EGD) H/O colonoscopy History of angioplasty History of partial gastrectomy History of cholecystectomy History of cataract surgery History of hysterectomy History of tubal ligation S/P excision of neuroma Family History Family History Father CVD (cardiovascular disease) Heart disease Hypertension Stroke Mother CVD (cardiovascular disease) Heart disease Asthma Maternal Grandmother No problems noted. Maternal Grandfather No problems noted. Paternal Grandmother No problems noted. Paternal Grandfather No problems noted. Maternal Aunt Tongue cancer Social History Social History Household Members: None Housing: Assisted Living Facility Are you a primary career placement specialist to a significant other at home: No Do you presently have visiting nurse or other home services: No Alcohol intake: former Comment: NA Patient Tobacco Use Status: Former Tobacco user Smoked in Last 30 Days: No e-Cigarette/Vaping Use: Never Used Second Hand Smoke Exposure: No Use of substances other than those prescribed or required for medical reasons: No Advance Directives: Yes Advance Directives on File: Yes Advance Directives Date on File: 06/12/21 Do you have a plan to hurt others: No Plan service: No Current occupational status: retired Current occupational exposures/hazards: No Cognitive needs: No Hearing needs: No Vision needs: Yes Physical Exam ED Vital Signs: Vital Signs - 24 hr 11/24/24 20:21 Temperature 97.0 F Pulse Rate 78 Respiratory Rate 18 Blood Pressure 164/68 H Pulse Oximetry 96 Oxygen Delivery Method Room Air BMI result Body Mass Index 16.0 CONSTITUTIONAL: The patient appears non-toxic, well nourished and in no acute distress. Vital signs as documented. HEAD: Atraumatic, normocephalic. EYES: EOMs grossly intact, pupils equal, conjunctiva clear, no exudate. ENT: Nares patent, no discharge. Airway patent, no audible stridor, visible mucosa is pink and moist without noted lesions. NECK: Trachea is midline, no obvious masses or gross abnormalities. CHEST: Symmetric movement, normal appearance. LUNGS: LS present and CTAB, no w/r/r. Non-labored work of breathing. CARDIAC: Regular Rhythm, S1/S2 appreciated, no murmurs, rubs or gallops. ABDOMEN: Abdomen soft x4 quadrants, positive tenderness of the left upper and left lower quadrants, negative rebound, no palpable masses or organomegaly. : Deferred. EXTREMITIES: Normal tone, moves all extremities spontaneously without reported pain. No obvious acute injury or deformity noted. NEURO: Alert and oriented x3, CN II-XII appear grossly intact. Cerebellar Functioning grossly intact. No obvious sensory or motor deficits. Speech clear and appropriate. PSYCH: normal affect, appropriate eye contact, fluid speech, with appropriate response to questioning. No reported suicidality or homicidality. SKIN: Warm, dry, color appropriate, normal turgor. No rashes noted. Medications Administered Generic Name Dose Route Start Last Admin Trade Name Freq PRN Reason Stop Dose Admin Sodium Bicarbonate 50 meq/ 1,000 mls @ 75 mls/hr 11/24/24 23:30 11/25/24 00:08 Dextrose IV 75 mls/hr .[id number] SYLVAIN Administration Discontinued Medications Generic Name Dose Route Start Last Admin Trade Name Freq PRN Reason Stop Dose Admin Sodium Bicarbonate 50 meq 11/24/24 23:28 11/25/24 00:08 Sodium Bicarbonate 8.4% 50 Meq/50 Ml Syringe IVPUSH 11/24/24 23:29 50 meq ONCE ONE Administration Medical Decision Making Medical Decision Making MDM Narrative: 10:06 PM 11/24/2024 (Keo DONOHUE): The patient is a 79-year-old female presenting to the ED for re-evaluation of abnormal kidney function identified on outpatient labs earlier today. Patient reports she has been experiencing left- sided abdominal pain and bilateral flank pain for the past week. In the ED patient appears nontoxic, vital signs are reassuring, exam reveals tenderness without rebound of the left abdomen. The patient will be re-evaluated with a repeat laboratory evaluation, as well as noncontrast CT abdomen and pelvis to evaluate abdominal tenderness an acute change in renal function. If RONY with hyperkalemia is confirmed, suspect patient will require admission for IV fluid hydration, potassium management, and nephrology consultation. 11:04 PM 11/24/2024 (Keo DONOHUE): The patient is laboratory evaluation was repeated and demonstrates worsening RONY with BUN 105 and creatinine 7.69. Potassium has slightly improved to 5.3, magnesium is also high at 2.8. The patient's CBC unfortunately also shows a drop in H&H, now with H&H of 6.9 and 20.2, compared to 8.4 and 26.2 just [address] has been obtained and results are pending. We will perform guaiac to confirm GI source of bleeding as described by the patient. We will plan to initiate transfusion, and consult Nephrology for recommendations regarding need for dialysis versus fluid hydration for RONY. 11:27 PM 11/24/2024 (Koe DONOHUE): Patient's case was discussed with Dr. Parham from nephrology, agrees with plan for slow transfusion of 2 units, as well as gentle fluid hydration with LR at [address] Parham also recommends administration of 3 amps of bicarb, followed by a bicarb drip of 1 L at 75 per hour. Patient will require admission for monitoring and consideration of kidney biopsy. We will discuss patient's case with admitting hospitalist. Admission/Observation Consideration of admission/observation: Escalation of care including admission/observation considered Consult Healthcare Provider Management of the patient was discussed with: Hospitalist and Sales Representative Publications Lab Data MDM Lab Attestation statement: I reviewed the patient's lab results. 11/24/24 22:27 11/24/24 22:27 Labs: Lab Results 11/24/24 11/24/24 11/24/24 Range/Units 20:36 22:27 23:55 WBC 3.5 L (4.8-10.8) X10*3/uL RBC 2.17 L (4.20-5.50) X10*6/uL Hgb 6.9 L* (12.0-16.0) g/dl Hct 20.2 L* (37.0-47.0) % MCV 93.1 (80.0-98.0) fL MCH 31.8 (27.0-33.0) pg MCHC 34.2 (31.0-35.0) g/dl RDW 15.0 (11.0-16.0) % Plt Count 125 L (160-400) X10*3/uL MPV 10.3 (9.4-12.3) fL Immature Gran % (Auto) 0.3 (0.0-0.4) % Neut % (Auto) 60.7 (45-73) % Lymph % (Auto) 23.3 (20-40) % [place] % (Auto) 12.8 H (2-11) % Eos % (Auto) 2.3 (0-4) % Baso % (Auto) 0.6 (0-2) % Lymph # (Auto) 0.8 L (1.2-4.9) X10*3/uL [place] # (Auto) 0.5 (0.1-1.2) X10*3/uL Eos # (Auto) 0.1 (0.0-0.4) X10*3/uL Baso # (Auto) 0.0 (0.0-0.2) X10*3/uL Abs Immat Gran (auto) 0.01 (0.00-0.03) X10*3/uL Absolute Neuts (auto) 2.1 (2.0-8.3) x10*3/uL Absolute Nucleated RBC 0.000 (0.0-0.012) X10*3/uL Nucleated RBC % (auto) 0.0 (0.0-0.2) /100WBC Sodium 141 (135-145) mmol/L Potassium 5.3 H (3.3-5.1) mmol/L Chloride 113 H (96-108) mmol/L Carbon Dioxide 16 L (22-29) mmol/L Anion Gap 17 (12-20) BUN 105 H (9-16) mg/dL Creatinine 7.69 H* (0.5-1.4) mg/dL Estim Creat Clear Calc 4.2 Estimated GFR 5 Random Glucose 95 (60-115) mg/dL Calcium 8.0 L (8.4-10.2) mg/dL Magnesium 2.8 H (1.6-2.6) mg/dL Total Bilirubin 0.4 (0.0-1.0) mg/dL AST 26 (5-31) U/L ALT 32 H (0-31) U/L Alkaline Phosphatase 69 (39-117) U/L Total Protein 5.8 L (6.5-8.0) g/dL Albumin 4.1 (3.5-5.0) g/dL Urine Color Yellow Urine Appearance Clear Urine pH 5.0 (5.0-9.0) Ur Specific [place] 1.010 (1.005-1.025) Urine Protein 30 (1+) H (Neg-Trace) mg/dL Urine Glucose (UA) Negative (Negative) mg/dL Urine Ketones Negative (Negative) mg/dL Urine Blood Negative (Negative) Urine Nitrite Negative (Negative) Ur Leukocyte Esterase Moderate (2+) H (Negative) Urine RBC 0-2 (0-2) /HPF Urine WBC 21-50 H (0-5) /HPF Ur Squamous Epith Cells 3-5 (0-2) /HPF Urine Bacteria None Seen (None Seen) Hyaline Casts 3-5 (0-2) /LPF Stool Occult Blood NEGATIVE (NEGATIVE) Blood Type A Positive Antibody Screen NEGATIVE Crossmatch See Detail Independent Interpretation I performed an independent interpretation of an: EKG (EKG shows sinus rhythm with a rate of 75, no evidence of acute ischemia, no ST elevation, no ectopy. QTC 422. Compared to previous on 11/04/2024 there are no significant morphology changes. ) External Record Review External record reviewed: Outpatient record and Prior outpatient labs Discharge Plan Discharge Clinical Impression: Anemia, RONY (acute kidney injury) Patient Disposition: Admitted As Inpatient
[2024-11-24 22:32] LABS: MANUAL DIFF FLAG NO
[2024-11-24 22:34] LABS: Imm Gran Abs Auto 0.01 X10*3/uL (0.00-0.03); Imm Gran Pct Auto 0.3 % (0.0-0.4); Lymphocytes Absolute Auto 0.8 X10*3/uL (1.2-4.9); Mean Corpuscular HGB Conc 34.2 g/dl (31.0-35.0); Mean Corpuscular Hemoglobin 31.8 pg (27.0-33.0); Mean Corpuscular Volume 93.1 fL (80.0-98.0); NRBC Abs Auto 0.000 X10*3/uL (0.0-0.012); NRBC Pct Auto 0.0 /100WBC (0.0-0.2); Platelet Count 125 X10*3/uL (160-400); Red Blood Count 2.17 X10*6/uL (4.20-5.50); White Blood Count 3.5 X10*3/uL (4.8-10.8)
[2024-11-24 22:38] LABS: Hematocrit 20.2 % (37.0-47.0); Hemoglobin 6.9 g/dl (12.0-16.0)
[2024-11-24 22:48] LABS: Alanine Aminotransferase 32 U/L (0-31); Albumin Level 4.1 g/dL (3.5-5.0); Alkaline Phosphatase 69 U/L (39-117); Anion Gap 17 (12-20); Aspartate Amino Transferase 26 U/L (5-31); Blood Urea Nitrogen 105 mg/dL (9-16); Calcium 8.0 mg/dL (8.4-10.2); Carbon Dioxide 16 mmol/L (22-29); Chloride 113 mmol/L (96-108); Creatinine Clr Calc Pharmacy 4.2; Estimated Glomerular Filt Rate 5; Magnesium 2.8 mg/dL (1.6-2.6); Potassium 5.3 mmol/L (3.3-5.1); Sodium 141 mmol/L (135-145); Total Protein 5.8 g/dL (6.5-8.0)
--- NOTE | 2024-11-24 23:39 | PC.NURSE ---
20g IV R upper arm, 22g IV LAC
[2024-11-24 23:58] LABS: OBS Int Ctl Valid YES
[2024-11-25] VITALS (15 sets, daily range): BP systolic 140–186; BP diastolic 54–78; PULSE 60–95; RESP 12–22; TEMP 36.4–36.9; O2SAT 95–98; BMI 17.4
[2024-11-25 00:02] LABS: OBS1 NEGATIVE (NEGATIVE)
[2024-11-25] MEDS: Sodium Bicarbonate 8.4% 50 MEQ in Dextrose 5 % 950 ML 75 MEQ IV ×2 (00:08→13:51)
--- NOTE | 2024-11-25 00:41 | PM.IMHP ---
History of Present Illness Date of Service: 11/25/24 Attending physician on admission: Mateo Rainey Chief Complaint: abnormal labs Pt is a 79-year-old female with past medical history hyperlipidemia, hypertension, diverticulosis, internal hemorrhoids, gastrectomy due to peptic ulcer disease (1969's), alcohol abuse in remission since 2007, depression, anxiety, , asthma, insomnia, seizure history (pt denies any recent seizures), TIA, PAD, , syncope, dementia/Alzheimer's, DVT on Plavix, allergic rhinitis, and unexplained weight loss was seen in the emergency department after hearing from her doctor's office that her renal function had declined greatly and she would need to be evaluated in the emergency room. Patient states her renal function decline started after the last colonoscopy in August of 2024. Prior, in January 2024, creatinine was 0.71 with a GFR >60. In addition, H/H 6.9/20.2, was 7.3/22.2 11/04/24. Patient has reported a decrease in urinary output over the last month. Patient is also experiencing shortness of breath with fatigue. Patient denies any swelling in the legs or abdomen. Patient denies any profound itching and does not appear jaundice. Patient currently has no flank pain but reported flank pain to the emergency room provider. Patient also denies chest pain, nausea, vomiting but did have rebound abdominal pain on exam in the ED. CT of the abdomen and pelvis notes severe stool burden but no small bowel obstruction. Patient also has mild free fluid in the abdomen pelvis area that is nonspecific and likely reactive. Patient also has evidence of bilateral nephrolithiasis without hydronephrosis. Cardiomegaly also noted. Patient currently receiving 2 units of PRBCs for low H/H. Stool for occult from a limited sample was negative for heme. Patient could also be experiencing anemia secondary to her advancing kidney disease. ECG stable without ischemic changes. Pt does not require oxygen on admission. Due to patient's dementia, patient had trouble with dates and times but overall reported a significant GI history with a gastrectomy in the 70s from peptic ulcer disease and recent colonoscopies now every 5 months for precancerous polyps. Patient did state she had a surgical procedure at [facility] with Dr. Ventura but with physical exam, unable to identify a laparoscopic or abdominal incisions indicating recent surgery. Patient does have a vertical scar but that is related to her past gastrectomy. Requested records from [facility]. Patient states her last colonoscopy was here at [facility] with Dr. Ellsworth in August of 2024. In a 5 month span, patient developed 11 new polyps from the previous colonoscopy. Patient is having unexplained weight loss and is now down to a BMI of 16. Patient states a year prior she was 130 lb. Pt is taking ensure protein shakes at home when she can. Patient denies being told she has evidence of colon cancer and has never met with an oncologist or received chemotherapy or radiation. Upon review of patient's record she was seen by Nephrology 11/13/2024 and potential diagnosis was ATI. Renal ultrasound done in outpatient setting noted Hyperechoic kidneys suggesting edema versus Medical renal disease without hydronephrosis... Patient had no signs of uremia at that time. Patient's creatinine at that time was 3.32 with a creatinine clearance of 10.5, GFR 13, and currently patient's creatinine 7.69 with creatinine clearance of 4.2 and a GFR of 5. Patient's potassium is 5.3, was 5.6 on evaluation in the ED. Patient did not receive Lokelma. Patient is currently on a bicarb infusion with a noted metabolic acidosis. Review of Systems Review of Systems: Patient currently denies any chest pain, shortness of breath at rest and is reporting some mild abdominal pain with physical exam only. Patient states she has not made a lot of urine in the last month. Patient has not had a loss of appetite but continues to lose weight and is now a BMI of 16. Patient denies any recent falls or injury. [facility] Medical History DVT (deep venous thrombosis) Depression Dementia Degenerative disease of nervous system, unspecified Multifactorial gait disorder Ataxia Peripheral neuropathy Arthritis Complex partial seizures Vitamin D deficiency TIA (transient ischemic attack) Seizure Alzheimer's dementia Anxiety Insomnia Osteoporosis Anemia Gait abnormality Partial symptomatic epilepsy with complex partial seizures, not intractable, without status epilepticus Asthma Pure hypercholesterolemia Peripheral arterial disease Unsteady gait Neuropathy Benign essential hypertension Alcoholism in remission Exertional dyspnea Functional capacity: independent ambulation Patient : No Family History Father CVD (cardiovascular disease) Heart disease Hypertension Stroke Mother CVD (cardiovascular disease) Heart disease Asthma Maternal Grandmother No problems noted. Maternal Grandfather No problems noted. Paternal Grandmother No problems noted. Paternal Grandfather No problems noted. Maternal Aunt Tongue cancer Surgical History Status post insertion of nerve stimulator Hx of foot surgery Hx of nasal septoplasty History of esophagogastroduodenoscopy (EGD) H/O colonoscopy History of angioplasty History of partial gastrectomy History of cholecystectomy History of cataract surgery History of hysterectomy History of tubal ligation S/P excision of neuroma Social History Household Members: None Housing: Assisted Living Facility Are you a primary neurocritical care physician to a significant other at home: No Do you presently have visiting nurse or other home services: No Alcohol intake: former Comment: NA Patient Tobacco Use Status: Former Tobacco user Smoked in Last 30 Days: No e-Cigarette/Vaping Use: Never Used Second Hand Smoke Exposure: No Use of substances other than those prescribed or required for medical reasons: No Advance Directives: Yes Advance Directives on File: Yes Advance Directives Date on File: 06/12/21 Do you have a plan to hurt others: No Plan Patient : No service: No Current occupational status: retired Current occupational exposures/hazards: No Cognitive needs: No Hearing needs: No Vision needs: Yes Ebola Risk: Travel/Contact With Anyone From Affected Area/s: No Has Patient Experienced Ebola Symptoms: No Meds Allergies Allergy/AdvReac Type Severity Reaction Status Date / Time morphine (Morphine) Allergy Severe VOMITING/LONGORIA Verified 11/24/24 20:24 LLUCINATION S codeine (Codeine) Allergy Intermediate VOMITING/HALLUCINATIONS, Verified 11/24/24 20:24 nause/extended abdomen latex Allergy Unknown Unknown Verified 11/24/24 20:24 atorvastatin AdvReac Intermediate fever, Verified 11/24/24 20:24 chills, abd pain, numbness capsaicin (CAPSAICIN) AdvReac Intermediate BURNING Verified 11/24/24 20:24 bacitracin Allergy Intermediate redness Uncoded 11/24/24 20:24 and itching adhesives Allergy Mild rash Uncoded 11/24/24 20:24 Active Medications: Current Medications Sodium Bicarbonate 50 meq/ (Dextrose) 1,000 mls @ 75 mls/hr IV .[id number] [facility] Last Admin: 11/25/24 00:08 Dose: 75 mls/hr Lactated Ringer's (Lr) 1,000 mls @ 100 mls/hr IV .Q10H [facility] Stop: 11/25/24 09:44 Physical Exam Vital Signs and Narrative: Vital Signs: Last Vital Signs Temp 97.0 F 11/24/24 20:21 Pulse 78 11/24/24 20:21 Resp 18 11/24/24 20:21 BP 164/68 H 11/24/24 20:21 Pulse Ox 96 11/24/24 20:21 O2 Del Method Room Air 11/24/24 20:21 BMI result Body Mass Index 16.0 Alert and orientated X3, memory is fair, recall fair Neuro: CN II-X11 intact, no deficits, visual acuity intact EYES: PERRLA, EOM intact, sclerae nonicteric, conjunctiva pale, glasses on ENT: hearing intact, no issues with swallowing, uvula midline, lips moist, nares patent no epistaxis, dentures well-fitting Cardiac: S1 S2 RRR, no murmur, no JVD, no edema in Lower ext Pulmonary: lungs diminished bilaterally Abdominal: BS active throughout, no extensive distention noted, no tenderness on palpation MSK: strength 3-4/5 upper and lower extremities : no CVA tenderness no bladder distension Extremities: no edema in lower extremities, PT and DP pulses palpable +2 Psych: mood stable, judgement and insight fair Skin: Intact, no new rashes or lesions. Vertical abdominal scar noted midabdomen Results Labs 11/24/24 22:27 11/24/24 22:27 Labs: Laboratory Results - last 24 hr 11/24/24 11/24/24 11/24/24 20:36 22:27 23:55 MCV 93.1 MCH 31.8 MCHC 34.2 RDW 15.0 Plt Count 125 L MPV 10.3 Immature Gran % (Auto) 0.3 Neut % (Auto) 60.7 Lymph % (Auto) 23.3 [place] % (Auto) 12.8 H Eos % (Auto) 2.3 Baso % (Auto) 0.6 Lymph # (Auto) 0.8 L [place] # (Auto) 0.5 Eos # (Auto) 0.1 Baso # (Auto) 0.0 Abs Immat Gran (auto) 0.01 Absolute Neuts (auto) 2.1 Absolute Nucleated RBC 0.000 Nucleated RBC % (auto) 0.0 Anion Gap 17 Estim Creat Clear Calc 4.2 Estimated GFR 5 Random Glucose 95 Calcium 8.0 L Magnesium 2.8 H Total Bilirubin 0.4 AST 26 ALT 32 H Alkaline Phosphatase 69 Total Protein 5.8 L Albumin 4.1 Urine Color Yellow Urine Appearance Clear Urine pH 5.0 Ur Specific [place] 1.010 Urine Protein 30 (1+) H Urine Glucose (UA) Negative Urine Ketones Negative Urine Blood Negative Urine Nitrite Negative Ur Leukocyte Esterase Moderate (2+) H Urine RBC 0-2 Urine WBC 21-50 H Ur Squamous Epith Cells 3-5 Urine Bacteria None Seen Hyaline Casts 3-5 Stool Occult Blood NEGATIVE Blood Type A Positive Antibody Screen NEGATIVE Crossmatch See Detail ECG Attestation: I personally reviewed and interpreted this ECG as follows: (Normal sinus rhythm no ischemic changes, QTC 420 due) Prior ECG tracings: available for review Imaging Radiologist's Impressions: CT ABD PELVIS IMPRESSION: 1. Severe stool burden. No small bowel obstruction. 2. Mild free fluid in the abdomen pelvis nonspecific and may be reactive. Fluid of the anasarca also considered with a trace-small left pleural effusion. Infected fluid is not excluded by CT. 3. Bilateral nephrolithiasis without hydronephrosis. 4. Wall thickening of the urinary bladder is nonspecific. 5. Cardiomegaly Assessment and Plan (1) Acute renal failure: Qualifiers: Acute renal failure type: unspecified Qualified Code(s): N17.9 - Acute kidney failure, unspecified Status: Acute (2) Anemia: Qualifiers: Anemia type: unspecified type Qualified Code(s): D64.9 - Anemia, unspecified Status: Chronic Plan Pt is a 79-year-old female with past medical history hyperlipidemia, hypertension, diverticulosis, internal hemorrhoids, gastrectomy due to peptic ulcer disease (1969's), alcohol abuse in remission since 2007, depression, anxiety, , asthma, insomnia, seizure history (pt denies any recent seizures), TIA, PAD, , syncope, dementia/Alzheimer's, DVT on Plavix, allergic rhinitis, and unexplained weight loss was seen in the emergency department after hearing from her doctor's office that her renal function had declined greatly and she would need to be evaluated in the emergency room. Patient states her renal function decline started after the last colonoscopy in August of 2024. Prior, in 2023, creatinine was 0.71 with a GFR >60. Patient required admission for RONY and acute anemia. Acute Renal Failure with no HX of CKD/ Metacolic Acidosis Nephrology consulted CT scan notes bilateral nephrolithiasis but no hydronephrosis - patient denies history of kidney stone Urology consulted Bicarb infusion started per recommendation, LR on hold while pt receives transfusion. Once transfusions completed, resume LR. Pt last saw [facility] 11/13/24 dx ATI - renal US Hyperechoic kidneys suggesting edema versus Medical renal diseas Pt is not presenting with signs of uremia, wt loss has been chronic Pt is oliguric for last month Avoid hypotension Avoid nephrotoxic Medications CK 38 Associated Anemia- erythropoetin level ordered, pt has not started Epogen so far Acute Anemia Stool occult negative - sample was limiting, ordered X3 GI consulted as pt has significant GI hx with Colonoscopy Q5M for multiple pre cancerous polyps CT scan notes stool burden, no SBO Transfusion 2 units started in ED - TACO risk, over 8 hours Protonix 40 IV BID Erythropeotin, Reticulocyte, LDH, Haptoglobin ordered No hypxocia or O2 requirement Hyperkalemia Currnetly on Bicarb infusion - 5.6 to 5.3, will hold on giving Lokelma at this time BMP in AM Telemetry Underweight, suspect protein malnourished with renal failure Nutritional Consult placed Pt was 130 pounds about 1 year prior Reports healthy appetite GI background significant, states she has not been dx with colon cancer but has had multiple precancerous polyps Constipation Bowel regimen ordered Monitor for acute abdominal symptoms HX of gastrectomy due to ulcers, current GERD/ heart burn symptoms Protonix BID GI consulted HX of DVT Hold Plavix due to acute anemia and need for transfusion No acute signs of DVT currently SCDs HTN Elevated on Arrival No JULIANA or ARB Hydralzaine prn IV Avoid hypotension DVT Prophylaxis: held due to acute anemia HX of DVT: SCDs MED REC PENDING FULL CODE Quality Stroke Does the patient have a stroke diagnosis?: No Reason for No Anti-thrombotic by Day Two: Contraindicated (acute anemia ) VTE Prior VTE?: Yes VTE Risk Level:: Medical - moderate - high VTE Device Contraindication: N/A - Device Ordered VTE Drug Contraindication: Treatment Not Tolerated
--- NOTE | 2024-11-25 01:14 | PC.NURSE ---
blood transfusing at this time. per provider, LR infusion on hold d/t risk of overload. TACO risk. hospitalist at bedside
--- OUTSIDE RECORDS SUMMARY | 2024-11-25 02:01 | XMS_ITS | Patient Health Record ---
[facility] Organization [facility] Address [address] [place] [address] Care Team Providers Care Materials Intern Name Role Phone Eron Santiago MDneth Primary Care Provider Ike Wolfe Unavailable [phone] Allergies Allergen (clinical drug ingredient) Drug/Non Drug [...] primary osteoarthritis of the ankle and/or foot (561508458) Primary osteoarthrit is, right ankle and foot (M19.071) Active confirmed Problem Localized, primary osteoarthritis of the ankle and/or foot (943848494) Primary osteoarthrit is, left ankle and foot (M19.072) Active confirmed Problem Acquired hammer toe of right foot (3150699889659933) Other hammer toe(s) (acquired), right foot (M20.41) Active confirmed Problem Acquired hammer toe of left foot (6981277711365248) Other hammer toe(s) (acquired), left foot (M20.42) [...] X ray : Foot, right 3V 08/02/2017 94938, [id number]/INJECT, JOINT/BURSA 0 08/30/2017 39725, [id number]/INJECT, JOINT/BURSA 1 2017 65988- Unna Boot 11/24/2017 Insurance Providers Payer Name Payer Address Payer Phone Subscriber Number Group Number Insured Name Patient Relationship to Insured Coverage Start Date Coverage End Date Medicare National Govt Svcs Inc [address] [place] [address] [id number] Cary Davis Self - patient is the insured 1 [employer] [address] [place] [address] [id number] Cary Davis Self - patient is the [...] the legs 0 03/2017 [facility] dizziness, nausea, drive hieves, deh ydration 09/27/2017 [facility] L3rd toe 01/14/2018 [facility]-sever leg pain blood clots / Afib 20 21
--- OUTSIDE RECORDS SUMMARY | 2024-11-25 02:02 | XMS_ITS | Patient Health Record ---
Author Organization [facility] Address [address] [place] [address] Care Team Providers Care Data Entry Clerk Name Role Phone Espinoza Santiago MD Primary Care Provider Umesh Stephenson Unavailable [phone] [email or web address] Unavailable Unavailable Allergies Allergen (clinical drug ingredient) Drug/Non Drug Allergy documented on EMR Reaction Allergy Type Onset Date Status Latex Latex Unknown Allergy Active bacitracin Bacitracin Unknown Drug Allergy Activ e atorvastatin Atorvastatin Unknown Drug Allergy A ctive Adhesive Unknown Allergy Active Codeine Phosphate Unknown Drug Allergy Active capsaicin Capsaicin Unknown Drug Allergy Active morphine Morphine Unknown Drug Allergy Active Results Component Value Reference Range Notes Pathology (Not yet reviewed by provider) Interpretation: Performing Lab:[facility], [address] [place] [id number] Notes/Report: CT abdomen pelvis w con (Not yet reviewed by provider) Interpretation: Performing Lab: Notes/Report: [address] [address] [address] Scan Report Signed Patient: Krissy Neri MR#: [id number] 80 : 1945 Acct:[id number] Age/Sex: 78 / F ADM Date: 02/07/24 Loc: HO.CT Attending Dr: Umesh Ellsworth MD Ordering Physician: Umesh Ellsworth MD Date of Service: 02/07/24 Procedure(s): CT abdomen pelvis w IV con Accession Number(s): [id number] cc: Espinoza Santiago MD; Umesh Ellsworth MD [...] in the subcutaneous tissues cephalad beyond the [id number] LYMPH NODES: No retroperitoneal lymphadenopathy. VASCULAR: Calcific [...] 02/07/24 1552 DD/ 1116 TD/TT: 02/07/24 1128 Auto Servicer: SS Reason For Referral No Information Medications [...] Status Risk Notes Problem Colon cancer screening (592341692) Colon cancer screening (Z12.11) Active confirmed Problem 565495432 Encounter for screening for malignant neoplasm of colon (Z12.11) Active confirmed Problem 434633828 History of adenomatous polyp of colon (Z86.010) Active confirmed Problem History of polyp of colon (situation) (957349489) Personal history of colonic polyps (Z86.010) Active confirmed Problem Diverticular disease of colon (438111550) Diverticulosis of large intestine without perforation or abscess without bleeding (K57.30) Active confirmed Problem Screening for malignant neoplasm of rectum (258160325) Encounter for screening for malignant neoplasm of rectum (Z12.12) Active confirmed Problem 96757577 Other iron deficiency anemia (D50.8) Active confirmed Problem 64085350 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) Active confirmed Problem 21236361489911 Long-term curren t use of anticonvulsant (Z79.899) Active confirmed Problem Adenoma of transverse colon (730193979) Adenoma of transverse colon (D12.3) Active confirmed Problem 374272059 H/O long-term (current) use of anticoagulants (Z92.29) Active confirmed Encounters Encounter Location Date Provider Diagnosis [facility] Outpatient [address] [place] [phone] 12/31/2023 Umesh Ellsworth Colon cancer screeni ng Z12.11 ; Colon polyps K63.5 ; Diverticulosis of large intestine without perforation or abscess without bleeding K57.30 and Other hemorrhoids K64.8 [facility] [address] [place] [phone] 01/03/2024 Umesh Ellsworth Adenoma of transvers e colon D12.3 [facility] [address] [place] [phone] 02/11/2024 Umesh Ellsworth [facility] [address] [place] [phone] 05/04/2024 Umesh Ellsworth [facility] [address] [place] [phone] 06/20/2024 Umesh Ellsworth Assessments Encounter Date Diagnosis [...] Date MEDICARE OF [place] [address] [place] [place] [address] [id number] ALISHASONSINDHU KRISSY Self - patient is the insured [employer] ATTN CLAIMS [address] [place] [address] [phone] [id number] ALISHASONSINDHU KRISSY Self - patient is the insured Medical (General) History Medical History History ICD Code Asthma Anxiety/depression Alcohol abuse---abstinenet 2010 Denies OH,DM,CVA,renal disease IBS--negative duodenal and c olonic biopsies in 06/2011--no microscopic colitis, no celiac disease Tubular adenomas removed in 2002, 2003, and 2005---negative colonoscopy in 06/2011 GERD--EGD in 06/2011--no esophagitis, nor mal duodenl biopsies TIA in 2013--transient left-sided weakne ss HTN PAD Varicose veins TIA /w seizure DVT's-needed thrombectomies-sees Dr. Cecily taylor at [facility] Chronic anemia in relation to her [...] surgery-bone spurs--both feet [employer] Sp[employer] Stimulator [phone] for pain put in by Dr. Sebastian 01/2023
--- OUTSIDE RECORDS SUMMARY | 2024-11-25 02:02 | XMS_ITS | Clinical Summary ---
Author Organization [facility] Address [address] [place] [address] Phone Care Team Providers Care Agriculture Laborer Name Role Phone Espinoza Santiago MD Primary Care Provider [phone] Allergies Active Allergy Reactions Criticality Noted Date [...] propionate (FLONASE) 50 mcg/actuation nasal spray 1 [place] by Each Nare route daily. Active clopidogreL [...] Take 1 Tab by mouth daily. Active asyfj-ar-4-dha-e hp-zvehyga-ril (MegaRed [place]-3 Krill Oil) 835-34-80-50 mg capsule Take 1 Cap by mouth [...] back pain 01/18/2024 PVD (peripheral vascular disease) ([facility]/HCC V24) 01/18/2024 Varicose veins of bilateral lower extremities wi th pain 01/18/2024 Encounters Date Type Department Care Team Description 10/12/2024 Telephone Vascular Surgery - [place] [address] [place] [phone] Maritza Webber PA from Last 3 Months Surgical History Surgery Date Site/Laterality Comments ANGIOPLASTY Bilateral PROCEDURE: HISTORICAL ANGIOPLASTY OTHER SURGICAL HISTORY 09/01/2022 PROCEDURE: FL SLCTV CATHJ 3RD+ ORD SLCTV ABDL PEL/LXTR BRNCH OTHER SURGICAL HISTORY 09/01/2022 PROCEDURE: FL SLCTV CATHJ EA 2ND+ ORD ABDL PEL/LXTR ART BRNCH OTHER SURGICAL HISTORY 09/01/2022 PROCEDURE: X-RAY EXAM OF ARM/LEG ARTERIES OTHER SURGICAL HISTORY 09/01/2022 PROCEDURE: X-RAY EXAM OF PELVIC ARTERIES OTHER SURGICAL HISTORY 09/01/2022 PROCEDURE: ULTRASOUND GUIDANCE FOR VASCULAR AC Medical History Medical History Date Comments PVD (peripheral vascular dis ease) (CMS/HCC V24) DX:PVD (peripheral vascular disease) ([facility]) Varicose veins of bilateral lower extremities with [...] Description 05/18/2025 1:30 PM EST Ancillary Procedure [facility] [address] [place] [phone] 06/28/2025 3:00 PM EDT Office Visit Vascular Surgery - [place] [address] [place] [phone] Maritza Webber, JAYDE [address] [place] [phone] Health Maintenance Due Date Last Done [...] Documents on File Type Date Recorded 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
--- NOTE | 2024-11-25 05:08 | PC.NURSE ---
pt tolerated 1st PRBC transfusion well, 2nd unit transfusing now
--- NOTE | 2024-11-25 05:38 | PC.NURSE ---
1 assist to bathroom with cane, pt unsteady at times. UA collected into hat. 600mls output, pale yellow. pt states i haven't urinated that much in months
[2024-11-25 05:58] LABS: Appearance Urine Clear; Glucose Urine UA Negative (Negative); PH 5.5 (5.0-9.0); Specific Gravity - Urine <= 1.005 (1.005-1.025); UMIC TRIGGER UACC YES
[2024-11-25 06:03] LABS: UACC Culture Trigger YES
--- NOTE | 2024-11-25 06:20 | PC.NURSE ---
pt presents to ED after PCP advised to come in for poor kidney function. c/o back/flank pain, decreased urine output and weight loss. ADMIT: acute renal failure, anemia. H/H 6.9/20.2, creatinine 7.69. stool occult negative. CT abd/pelvis: constipated. 20g IV R upper arm, 22g IV L forearm. 2nd PRBC infusing, sodium bicarb/D5 infusing, TACO risk, both infusing at 75mls/hr. LR to infuse after 2nd unit is finished per hospitalist. pt tolerating well. VSS. no O2. pt A/O x3, calm and cooperative with care, ambulates with 1 assist and cane to bathroom. confused at times. Nephrology, urology, GI, and nutrition consulted.
--- NOTE | 2024-11-25 08:16 | PHA.MEDREC ---
Pharmacy Consult ? Medication Reconciliation Pharmacy has completed the medication reconciliation. Spoke with patient at bedside, she gets her meds delivered from [facility] and had a list with her to help confirm.
[2024-11-25] MEDS: Lactated Ringers 1,000 ML 100 ML IVCONT ×2 (09:01→19:32)
--- NOTE | 2024-11-25 09:03 | PC.NURSE ---
blood transfusion complete. Pt lung sounds clear, no trouble breathing. Vitals stable. instructed, LR started after transfusion. Per pharmacy, no need to re-time med bc it is a continuous infusion. Pt home medications given. US with patient now.
[2024-11-25 09:08] LABS: EOS Counted 1 CELLS; WBC, Counted 100 CELLS
[2024-11-25 09:09] LABS: EOS QC POS YES; EOS Stain Quality OK YES
[2024-11-25 09:43] LABS: MANUAL DIFF FLAG NO
[2024-11-25 09:47] LABS: Hematocrit 25.4 % (37.0-47.0); Hemoglobin 8.9 g/dl (12.0-16.0); Imm Gran Abs Auto 0.01 X10*3/uL (0.00-0.03); Imm Gran Pct Auto 0.2 % (0.0-0.4); Lymphocytes Absolute Auto 0.9 X10*3/uL (1.2-4.9); Mean Corpuscular HGB Conc 35.0 g/dl (31.0-35.0); Mean Corpuscular Hemoglobin 31.6 pg (27.0-33.0); Mean Corpuscular Volume 90.1 fL (80.0-98.0); NRBC Abs Auto 0.000 X10*3/uL (0.0-0.012); NRBC Pct Auto 0.0 /100WBC (0.0-0.2); Platelet Count 116 X10*3/uL (160-400); Red Blood Count 2.82 X10*6/uL (4.20-5.50); Reticulocytes Absolute 0.047 X10*6/uL (0.026-0.095); White Blood Count 4.4 X10*3/uL (4.8-10.8)
[2024-11-25 10:09] LABS: Fibrinogen 342 MG/DL (259-690); INTERNATIONAL NORM RATIO 0.9 (0.9-1.1); Prothrombin Time 10.8 SEC (10.9-12.4)
[2024-11-25 10:12] LABS: Partial Thromboplastin Time 31.9 SEC (26.7-34.1)
[2024-11-25 10:22] LABS: Anion Gap 17 (12-20); Blood Urea Nitrogen 98 mg/dL (9-16); Calcium 7.8 mg/dL (8.4-10.2); Carbon Dioxide 16 mmol/L (22-29); Chloride 110 mmol/L (96-108); Creatinine Clr Calc Pharmacy 4.4; Estimated Glomerular Filt Rate 5; Iron 224 mcg/dL (30-160); Percent Iron Saturation 90 % (15-50); Potassium 4.3 mmol/L (3.3-5.1); Sodium 139 mmol/L (135-145); Total Iron Binding Capacity 249 mcg/dL (228-428); Unsaturated Iron Binding < 25 ug/dL
--- NOTE | 2024-11-25 11:45 | CONS_ITS ---
DATE OF SERVICE: 11/25/2024 REFERRING PHYSICIAN: Dr. Cabral REASON FOR CONSULTATION: Anemia. HISTORY OF PRESENT ILLNESS: The patient is a pleasant 79-year-old woman who was admitted to the hospital after presenting to the emergency room because of worsening renal failure. She was noted to be anemic with a hematocrit of 20.2 yesterday, which was down from 22 in October and has been transfused. Stool occult blood testing has been negative. She denies complaints of abdominal pain right now. She has had some reflux symptoms and is not on a proton pump inhibitor at home. She does have a history of peptic ulcer disease and is status post partial gastrectomy. She also has a history of colon polyps and last underwent colonoscopy in August 2024 with removal of multiple colonic polyps. She has been followed at [facility] for her colon polyps and is scheduled to undergo repeat colonoscopy in 6 months. Pathology on the polyps is not available, but will be obtained. She denies any rectal bleeding except for occasional hematochezia after wiping. She has no history of melena. PAST MEDICAL HISTORY: 1. Hyperlipidemia. 2. Hypertension. 3. Peripheral arterial disease. 4. DVT. 5. Depression and dementia. 6. Peripheral neuropathy with ataxia. 7. Seizure disorder. 8. Vitamin D deficiency. 9. TIA. 10. Alzheimer dementia. 11. Osteoporosis. 12. Anxiety. 13. Alcohol abuse, in remission. CURRENT MEDICATIONS: Her current medication list is reviewed in the chart. ALLERGIES: MULTIPLE MEDICATION ALLERGIES ARE REVIEWED. PAST SURGICAL HISTORY: Includes multiple surgeries, which are reviewed in the electronic medical record. FAMILY HISTORY: Reviewed with the patient and is noncontributory. SOCIAL HISTORY: There is no current tobacco, alcohol, or substance abuse. REVIEW OF SYSTEMS: SKIN: No pruritus. HEENT: Negative. CARDIOPULMONARY: No shortness of breath or chest pain. GASTROINTESTINAL: As above. GENITOURINARY: Negative. NEUROPSYCHIATRIC: Negative. PHYSICAL EXAMINATION: GENERAL: Shows a pleasant female, lying comfortably in bed. VITAL SIGNS: Reviewed in electronic medical record and are stable. SKIN: Anicteric. HEENT: Shows no scleral icterus. NECK: Without lymphadenopathy or thyromegaly. LUNGS: Clear. HEART: Shows regular rate and rhythm. S1, S2. No murmur. ABDOMEN: Soft without focal masses or tenderness. Bowel sounds are present. No organomegaly is noted. EXTREMITIES: Without edema. LABORATORY DATA: Reviewed as are imaging studies. IMPRESSION: Anemia with Hemoccult negative stools. It appears that her anemia is likely related to her underlying kidney disease and not from GI blood losses based on her Hemoccult negative stools. 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 I would recommend empiric treatment with a proton pump inhibitor given her history of peptic ulcer disease and use of both aspirin and Plavix. I do not think she needs endoscopy or colonoscopy at this time. Thanks for asking me to see her. I will follow her in the hospital with you. MD MICHAEL Lorenz/ROBERTA / [phone] MTDD
--- NOTE | 2024-11-25 12:53 | P.PNIM_ITS ---
Subjective Subjective Date of Service: 11/25/24 Interval History: no complaints at present Review of Systems Review of Systems: Yes all other systems are reviewed and are negative Physical Exam 2 Vital Signs: Vital Signs: Last Vital Signs Temp 98.5 F 11/25/24 08:44 Pulse 69 11/25/24 08:44 Resp 12 11/25/24 08:44 BP 177/72 H 11/25/24 08:44 Pulse Ox 98 11/25/24 05:46 O2 Del Method Room Air 11/25/24 05:46 BMI result Body Mass Index 16.0 Gen: in no acute distress HEENT: sclera anicteric, moist mucus membranes Neck: supple Lungs: clear to auscultation bilaterally Heart: regular rate and rhythm, no murmurs Abd: soft, non-tender, non-distended Ext: no edema Skin: warm/well-perfused Neuro: alert and oriented x3, no focal findings Psych: appropriate affect Objective Data Active Medications Acetaminophen (Acetaminophen 325 Mg Tablet) 650 mg PO Q6H PRN PRN Reason: Pain, Mild 1-3,fever,headache Albuterol Sulfate (Albuterol Sulfate 90 Mcg 8 Gm Inhaler) 2 puff INHALE Q6H PRN PRN Reason: shortness of breath or wheezing Albuterol/Ipratropium (Albuterol/Iprat 2.5/0.5mg 3 Ml Ampul.Neb) 3 ml INHALE Q4H PRN PRN Reason: Shortness of Breath/Wheezing Bisacodyl (Bisacodyl 10 Mg Supp.Rect) 10 mg CA BEDTIME PRN PRN Reason: Constipation Calcium Carbonate (Calcium Carbonate 750 Mg Tab.Chew) 750 mg PO Q4H PRN PRN Reason: Heartburn Clonazepam (Clonazepam 0.5 Mg Tablet) 0.5 mg PO BID PRN PRN Reason: Anxiety Clonazepam (Clonazepam 1 Mg Tablet) 1 mg PO BEDTIME PRN PRN Reason: Anxiety Duloxetine HCl (Duloxetine Hcl 30 Mg Capsule.Dr) 30 mg PO BID SYLVAIN Last Admin: 11/25/24 08:59 Dose: 30 mg Documented By: BRENTON Fluticasone Propionate (Fluticasone Propionate Nasal 16 Gm [place]) 2 spray NOSTRIL-B DAILY PRN PRN Reason: for allergies Hydralazine HCl (Hydralazine Hcl 20 Mg/Ml Vial) 10 mg IVPUSH Q6H PRN; Protocol PRN Reason: SBP > 160 Sodium Bicarbonate 50 meq/ (Dextrose) 1,000 mls @ 75 mls/hr IV .[id number] [facility] Last Admin: 11/25/24 00:08 Dose: 75 mls/hr Documented By: CLAUDIA Lactated Ringer's (Lr) 1,000 mls @ 100 mls/hr IVCONT .Q10H [facility] Last Admin: 11/25/24 09:01 Dose: 100 mls/hr Documented By: BRENTON Lamotrigine (Lamotrigine 100 Mg Tablet) 150 mg PO DAILY [facility] Last Admin: 11/25/24 08:58 Dose: 150 mg Documented By: BRENTON Magnesium Hydroxide (Milk Of Magnesia 30 Ml Oral.Susp) 30 ml PO DAILY PRN PRN Reason: Constipation Melatonin (Melatonin 3 Mg Tablet) 6 mg PO BEDTIME PRN PRN Reason: Insomnia Memantine (Memantine Hcl 5 Mg Tablet) 5 mg PO BID [facility] Last Admin: 11/25/24 08:58 Dose: 5 mg Documented By: BRENTON Multivitamins/Vitamin C (Multivitamin Tablet) 1 tab PO DAILY [facility] Last Admin: 11/25/24 08:59 Dose: 1 tab Documented By: BRENTON Non-Formulary Medication (Simvastatin) 20 mg PO BEDTIME [facility] Ondansetron HCl (Ondansetron Hcl 4 Mg/2 Ml Vial) 4 mg IVPUSH Q8H PRN PRN Reason: Nausea and Vomiting Pantoprazole Sodium (Pantoprazole Sodium 40 Mg/10 Ml Vial) 40 mg IVPUSH BID@0630,1630 [facility] Last Admin: 11/25/24 06:16 Dose: 40 mg Documented By: CLAUDIA Polyethylene Glycol (Polyethylene Glycol 3350 17 Gm Powd.Pack) 17 gm PO DAILY [facility] Last Admin: 11/25/24 08:58 Dose: 17 gm Documented By: BRENTON Senna (Sennosides 8.6 Mg Tablet) 17.2 mg PO BEDTIME [facility] Sertraline HCl (Sertraline Hcl 50 Mg Tablet) 50 mg PO DAILY [facility] Last Admin: 11/25/24 08:58 Dose: 50 mg Documented By: BRENTON Sodium Chloride (0.9 % Sodium Chloride Flush 3 Ml Syringe) 3 ml IVFLUSH QSHIFT [facility] Last Admin: 11/25/24 07:37 Dose: Not Given Documented By: BRENTON Non-Admin Reason: IV Running Sodium Chloride (0.9 % Sodium Chloride Flush 3 Ml Syringe) 3 ml [facility]USH [facility] Last Admin: 11/25/24 07:37 Dose: Not Given Documented By: BRENTON Non-Admin Reason: IV Running Trazodone HCl (Trazodone Hcl 100 Mg Tablet) 100 mg PO BEDTIME [facility] Vitamin D (Cholecalciferol (Vitamin D3) 25 Mcg Tablet) 25 mcg PO DAILY [facility] Last Admin: 11/25/24 08:59 Dose: 25 mcg Documented By: BRENTON Labs 11/25/24 09:37 11/25/24 09:37 Labs: Laboratory Results - last 24 hr 11/24/24 11/24/24 11/24/24 20:36 22:27 23:55 MCV 93.1 MCH 31.8 MCHC 34.2 RDW 15.0 Plt Count 125 L MPV 10.3 Immature Gran % (Auto) 0.3 Neut % (Auto) 60.7 Lymph % (Auto) 23.3 [place] % (Auto) 12.8 H Eos % (Auto) 2.3 Baso % (Auto) 0.6 Lymph # (Auto) 0.8 L [place] # (Auto) 0.5 Eos # (Auto) 0.1 Baso # (Auto) 0.0 Abs Immat Gran (auto) 0.01 Absolute Neuts (auto) 2.1 Absolute Nucleated RBC 0.000 Nucleated RBC % (auto) 0.0 Smear Path Review Absolute Retic Percent Retic Immature Retic Fraction Retic Hgb Equivalent PT INR APTT Fibrinogen Anion Gap 17 Estim Creat Clear Calc 4.2 Estimated GFR 5 Random Glucose 95 Haptoglobin Calcium 8.0 L Phosphorus Magnesium 2.8 H Iron TIBC % Saturation Unsat Iron Binding Total Bilirubin 0.4 AST 26 ALT 32 H Alkaline Phosphatase 69 Lactate Dehydrogenase Total Protein 5.8 L Albumin 4.1 Urine Color Yellow Urine Appearance Clear Urine pH 5.0 Ur Specific [place] 1.010 Urine Protein 30 (1+) H Urine Glucose (UA) Negative Urine Ketones Negative Urine Blood Negative Urine Nitrite Negative Ur Leukocyte Esterase Moderate (2+) H Urine RBC 0-2 Urine WBC 21-50 H Ur Squamous Epith Cells 3-5 Urine Bacteria None Seen Hyaline Casts 3-5 Urine Eosinophils % Urine Osmolality Urine Creatinine Stool Occult Blood NEGATIVE Blood Type A Positive Antibody Screen NEGATIVE Crossmatch See Detail 11/25/24 11/25/24 11/25/24 05:44 09:36 09:37 MCV 90.1 MCH 31.6 MCHC 35.0 RDW 15.2 Plt Count 116 L MPV 10.9 Immature Gran % (Auto) 0.2 Neut % (Auto) 66.6 Lymph % (Auto) 20.9 [place] % (Auto) 8.9 Eos % (Auto) 2.7 Baso % (Auto) 0.7 Lymph # (Auto) 0.9 L [place] # (Auto) 0.4 Eos # (Auto) 0.1 Baso # (Auto) 0.0 Abs Immat Gran (auto) 0.01 Absolute Neuts (auto) 2.9 Absolute Nucleated RBC 0.000 Nucleated RBC % (auto) 0.0 Smear Path Review Cancelled Absolute Retic 0.047 Percent Retic Immature Retic Fraction Retic Hgb Equivalent PT 10.8 L INR 0.9 APTT 31.9 Fibrinogen 342 Anion Gap Estim Creat Clear Calc Estimated GFR Random Glucose Haptoglobin Calcium Phosphorus Magnesium Iron TIBC % Saturation Unsat Iron Binding Total Bilirubin AST ALT Alkaline Phosphatase Lactate Dehydrogenase Total Protein Albumin Urine Color Yellow Urine Appearance Clear Urine pH 5.5 Ur Specific [place] <= 1.005 Urine Protein Trace Urine Glucose (UA) Negative Urine Ketones Negative Urine Blood Trace H Urine Nitrite Negative Ur Leukocyte Esterase Trace H Urine RBC 0-2 Urine WBC 6-10 H Ur Squamous Epith Cells 0-2 Urine Bacteria None Seen Hyaline Casts 0-2 Urine Eosinophils % 1.0 Urine Osmolality 267 L Urine Creatinine 23.29 Stool Occult Blood Blood Type Antibody Screen Crossmatch 11/25/24 11/25/24 11/25/24 09:37 09:37 09:37 MCV MCH MCHC RDW Plt Count MPV Immature Gran % (Auto) Neut % (Auto) Lymph % (Auto) [place] % (Auto) Eos % (Auto) Baso % (Auto) Lymph # (Auto) [place] # (Auto) Eos # (Auto) Baso # (Auto) Abs Immat Gran (auto) Absolute Neuts (auto) Absolute Nucleated RBC Nucleated RBC % (auto) Smear Path Review Absolute Retic Cancelled Percent Retic 1.7 Cancelled Immature Retic Fraction 10.0 Cancelled Retic Hgb Equivalent 32.3 PT INR APTT Fibrinogen Anion Gap Estim Creat Clear Calc Estimated GFR Random Glucose Haptoglobin Calcium Phosphorus Magnesium Iron TIBC % Saturation Unsat Iron Binding Total Bilirubin AST ALT Alkaline Phosphatase Lactate Dehydrogenase Total Protein Albumin Urine Color Urine Appearance Urine pH Ur Specific [place] Urine Protein Urine Glucose (UA) Urine Ketones Urine Blood Urine Nitrite Ur Leukocyte Esterase Urine RBC Urine WBC Ur Squamous Epith Cells Urine Bacteria Hyaline Casts Urine Eosinophils % Urine Osmolality Urine Creatinine Stool Occult Blood Blood Type Antibody Screen Crossmatch 11/25/24 09:37 MCV MCH MCHC RDW Plt Count MPV Immature Gran % (Auto) Neut % (Auto) Lymph % (Auto) [place] % (Auto) Eos % (Auto) Baso % (Auto) Lymph # (Auto) [place] # (Auto) Eos # (Auto) Baso # (Auto) Abs Immat Gran (auto) Absolute Neuts (auto) Absolute Nucleated RBC Nucleated RBC % (auto) Smear Path Review Absolute Retic Percent Retic Immature Retic Fraction Retic Hgb Equivalent Cancelled PT INR APTT Fibrinogen Anion Gap 17 Estim Creat Clear Calc 4.4 Estimated GFR 5 Random Glucose 95 Haptoglobin 68 Calcium 7.8 L Phosphorus 8.1 H Magnesium Iron 224 H TIBC 249 % Saturation 90 H Unsat Iron Binding < 25 Total Bilirubin AST ALT Alkaline Phosphatase Lactate Dehydrogenase 172 Total Protein Albumin Urine Color Urine Appearance Urine pH Ur Specific [place] Urine Protein Urine Glucose (UA) Urine Ketones Urine Blood Urine Nitrite Ur Leukocyte Esterase Urine RBC Urine WBC Ur Squamous Epith Cells Urine Bacteria Hyaline Casts Urine Eosinophils % Urine Osmolality Urine Creatinine Stool Occult Blood Blood Type Antibody Screen Crossmatch Microbiology Microbiology Results: Microbiology 11/24/24 Unknown Urine Culture - Preliminary Urine clean catch - Clean Catch Midstream No growth to date. 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 with anemia/mild thrombocytopenia, serologic workup to date negative, check [id number], hold DAPT for renal biopsy 11/29, check renal duplex, check MRI brain - continue bicarbonate IV infusion hyperK - resolved after bicarbonate acute anemia - suspect related to renal disease but will also check peripheral smear - FOBT negative, continue PPI, GI consulted, no scope indicated - transfused 2u PRBCs with appropriate response moderate protein-calorie malnutrition - supplements seizure disorder - lamotrigine mood disorder - sertraline dementia - MRI brain as above - memantine hx TIA - hold DAPT for renal biopsy VTE ppx - SCDs dispo - TBD In my clinical judgment, the patient requires continued inpatient hospitalization for the following reasons: RONY, anemia Total time managing care of this patient today: 55 minutes. Quality Stroke Does the patient have a stroke diagnosis?: No Reason for No Anti-thrombotic by Day Two: Contraindicated (acute anemia ) VTE Prior VTE?: Yes VTE Risk Level:: Medical - moderate - high VTE Device Contraindication: N/A - Device Ordered VTE Drug Contraindication: Treatment Not Tolerated
[2024-11-25] MEDS: 0.9 % Sodium Chloride Flush 3 ML SYRINGE IVFLUSH ×2 (15:57)
--- NOTE | 2024-11-25 19:51 | PC.NURSE ---
Assumed care of this patient at 1900, patient noted to be hypertensive on monitor, prn medication given. Pt has bed upstairs, to be transported upstairs when bed ready.
[2024-11-26] MEDS: Sodium Bicarbonate 8.4% 50 MEQ in Dextrose 5 % 950 ML 75 MEQ IV (02:56)
[2024-11-26 02:59] VITALS: BP 157/70; PULSE 69; RESP 16; TEMP 36.1; O2SAT 95
[2024-11-26] MEDS: Lactated Ringers 1,000 ML 100 ML IVCONT (06:04)
[2024-11-26 07:47] LABS: Hematocrit 27.8 % (37.0-47.0); Hemoglobin 10.0 g/dl (12.0-16.0); Mean Corpuscular HGB Conc 36.0 g/dl (31.0-35.0); Mean Corpuscular Hemoglobin 31.4 pg (27.0-33.0); Mean Corpuscular Volume 87.4 fL (80.0-98.0); NRBC Abs Auto 0.000 X10*3/uL (0.0-0.012); NRBC Pct Auto 0.0 /100WBC (0.0-0.2); Platelet Count 123 X10*3/uL (160-400); Red Blood Count 3.18 X10*6/uL (4.20-5.50); White Blood Count 5.0 X10*3/uL (4.8-10.8)
[2024-11-26 08:00] VITALS: BP 131/64; PULSE 72; RESP 18; TEMP 36.5; O2SAT 96
[2024-11-26 08:10] LABS: Anion Gap 18 (12-20); Blood Urea Nitrogen 92 mg/dL (9-16); Calcium 7.8 mg/dL (8.4-10.2); Carbon Dioxide 19 mmol/L (22-29); Chloride 105 mmol/L (96-108); Creatinine Clr Calc Pharmacy 5.1; Estimated Glomerular Filt Rate 6; Potassium 4.8 mmol/L (3.3-5.1); Sodium 137 mmol/L (135-145)
[2024-11-26] MEDS: Milk of Magnesia 30 ML ORAL.SUSP PO (09:05)
--- NOTE | 2024-11-26 09:08 | MHC.CM.PN ---
IMM delivered. Patient lives in a senior housing apartment alone. Ambulates w/ a cane, otherwise independent. Denies use of services. PCP Espinoza Santiago MD HCP on file and verified DP: Reports increased weakness and would benefit from PT eval. Patient would be agreeable to home w/ services or STR if recommended. Prefers [facility] for services. For STR preference to [facility], as her daughter lives in [place]. Transport TBD by dispo - daughter vs BLS. CM will continue to follow.
--- NOTE | 2024-11-26 09:40 | P.PNGI_ITS ---
Subjective Subjective Date of Service: 11/26/24 Interval History: no appetite no gi bleeding Critical Care Time (minutes): 0 Physical Exam 2 Vital Signs: Vital Signs: Last Vital Signs Temp 97.7 F 11/26/24 08:00 Pulse 72 11/26/24 08:00 Resp 18 11/26/24 08:00 BP 131/64 11/26/24 08:00 Pulse Ox 96 11/26/24 08:00 O2 Del Method Room Air 11/26/24 08:00 BMI result Body Mass Index 17.4 GI: Other: abdomen is soft and nontender Objective Data Labs 11/26/24 07:33 11/26/24 07:33 Labs: Laboratory Results - last 24 hr 11/25/24 11/25/24 11/25/24 09:36 09:37 09:37 WBC 4.4 L RBC 2.82 L D Hgb 8.9 L D Hct 25.4 L D MCV 90.1 MCH 31.6 MCHC 35.0 RDW 15.2 Plt Count 116 L MPV 10.9 Immature Gran % (Auto) 0.2 Neut % (Auto) 66.6 Lymph % (Auto) 20.9 [place] % (Auto) 8.9 Eos % (Auto) 2.7 Baso % (Auto) 0.7 Lymph # (Auto) 0.9 L [place] # (Auto) 0.4 Eos # (Auto) 0.1 Baso # (Auto) 0.0 Abs Immat Gran (auto) 0.01 Absolute Neuts (auto) 2.9 Absolute Nucleated RBC 0.000 Nucleated RBC % (auto) 0.0 Smear Path Review Cancelled Absolute Retic 0.047 Cancelled Percent Retic 1.7 Immature Retic Fraction Retic Hgb Equivalent PT 10.8 L INR 0.9 APTT 31.9 Fibrinogen 342 Sodium Potassium Chloride Carbon Dioxide Anion Gap BUN Creatinine Estim Creat Clear Calc Estimated GFR Random Glucose Haptoglobin Calcium Phosphorus Iron TIBC % Saturation Unsat Iron Binding Lactate Dehydrogenase 11/25/24 11/25/24 11/25/24 09:37 09:37 09:37 WBC RBC Hgb Hct MCV MCH MCHC RDW Plt Count MPV Immature Gran % (Auto) Neut % (Auto) Lymph % (Auto) [place] % (Auto) Eos % (Auto) Baso % (Auto) Lymph # (Auto) [place] # (Auto) Eos # (Auto) Baso # (Auto) Abs Immat Gran (auto) Absolute Neuts (auto) Absolute Nucleated RBC Nucleated RBC % (auto) Smear Path Review Absolute Retic Percent Retic Cancelled Immature Retic Fraction 10.0 Cancelled Retic Hgb Equivalent 32.3 Cancelled PT INR APTT Fibrinogen Sodium 139 Potassium 4.3 Chloride 110 H Carbon Dioxide 16 L Anion Gap 17 BUN 98 H Creatinine 7.29 H* Estim Creat Clear Calc 4.4 Estimated GFR 5 Random Glucose 95 Haptoglobin 68 Calcium 7.8 L Phosphorus 8.1 H Iron 224 H TIBC 249 % Saturation 90 H Unsat Iron Binding < 25 Lactate Dehydrogenase 172 11/26/24 07:33 WBC 5.0 RBC 3.18 L Hgb 10.0 L Hct 27.8 L MCV 87.4 MCH 31.4 MCHC 36.0 H RDW 14.9 Plt Count 123 L MPV 10.6 Immature Gran % (Auto) Neut % (Auto) Lymph % (Auto) [place] % (Auto) Eos % (Auto) Baso % (Auto) Lymph # (Auto) [place] # (Auto) Eos # (Auto) Baso # (Auto) Abs Immat Gran (auto) Absolute Neuts (auto) Absolute Nucleated RBC 0.000 Nucleated RBC % (auto) 0.0 Smear Path Review Absolute Retic Percent Retic Immature Retic Fraction Retic Hgb Equivalent PT INR APTT Fibrinogen Sodium 137 Potassium 4.8 Chloride 105 Carbon Dioxide 19 L Anion Gap 18 BUN 92 H Creatinine 6.82 H* Estim Creat Clear Calc 5.1 Estimated GFR 6 Random Glucose 114 Haptoglobin Calcium 7.8 L Phosphorus 7.3 H Iron TIBC % Saturation Unsat Iron Binding Lactate Dehydrogenase Microbiology Microbiology Results: Microbiology 11/24/24 Unknown Urine clean catch - Clean Catch Midstream Urine Culture - Preliminary No growth to date. Procedures Date of Service Date of Service: 11/26/24 Progress Note: A&P Assessment and plan (1) Anemia: Status: Chronic Assessment and Plan: appropriate response to transfusion no gi bleeding, anemia appears secondary to renal failure continue oral ppi for prophylaxis please call with questions. Time Spent With Patient Time: Total time managing care of this patient today ____ minutes. Quality Stroke Does the patient have a stroke diagnosis?: No Reason for No Anti-thrombotic by Day Two: Contraindicated (acute anemia ) VTE Prior VTE?: Yes VTE Risk Level:: Medical - moderate - high VTE Device Contraindication: N/A - Device Ordered VTE Drug Contraindication: Treatment Not Tolerated
[2024-11-26 11:03] VITALS: BP 163/74; PULSE 68; RESP 18; TEMP 36.7; O2SAT 98
--- NOTE | 2024-11-26 12:15 | P.PNIM_ITS ---
Subjective Subjective Date of Service: 11/26/24 Interval History: tolerated transfusion c/o nausea c/o back pain Review of Systems Review of Systems: Yes all other systems are reviewed and are negative Physical Exam 2 Vital Signs: Vital Signs: Last Vital Signs Temp 98.1 F 11/26/24 11:03 Pulse 68 11/26/24 11:03 Resp 18 11/26/24 11:03 BP 163/74 H 11/26/24 11:03 Pulse Ox 98 11/26/24 11:03 O2 Del Method Room Air 11/26/24 11:03 BMI result Body Mass Index 17.4 Gen: in no acute distress HEENT: sclera anicteric, moist mucus membranes Neck: supple Lungs: clear to auscultation bilaterally Heart: regular rate and rhythm, no murmurs Abd: soft, non-tender, non-distended Ext: no edema Skin: warm/well-perfused Neuro: alert and oriented x3, no focal findings Psych: appropriate affect Objective Data Active Medications Acetaminophen (Acetaminophen 325 Mg Tablet) 650 mg PO Q6H PRN PRN Reason: Pain, Mild 1-3,fever,headache Last Admin: 11/26/24 06:27 Dose: 650 mg Documented By: CORY Albuterol Sulfate (Albuterol Sulfate 90 Mcg 8 Gm Inhaler) 2 puff INHALE Q6H PRN PRN Reason: shortness of breath or wheezing Albuterol/Ipratropium (Albuterol/Iprat 2.5/0.5mg 3 Ml Ampul.Neb) 3 ml INHALE Q4H PRN PRN Reason: Shortness of Breath/Wheezing Bisacodyl (Bisacodyl 10 Mg Supp.Rect) 10 mg NE BEDTIME PRN PRN Reason: Constipation Calcium Carbonate (Calcium Carbonate 750 Mg Tab.Chew) 750 mg PO Q4H PRN PRN Reason: Heartburn Clonazepam (Clonazepam 0.5 Mg Tablet) 0.5 mg PO BID PRN PRN Reason: Anxiety Clonazepam (Clonazepam 1 Mg Tablet) 1 mg PO BEDTIME PRN PRN Reason: Anxiety Duloxetine HCl (Duloxetine Hcl 30 Mg Capsule.Dr) 30 mg PO BID SYLVAIN Last Admin: 11/26/24 09:05 Dose: 30 mg Documented By: SOFFADonald Fluticasone Propionate (Fluticasone Propionate Nasal 16 Gm [place]) 2 spray NOSTRIL-B DAILY PRN PRN Reason: for allergies Hydralazine HCl (Hydralazine Hcl 20 Mg/Ml Vial) 10 mg IVPUSH Q6H PRN; Protocol PRN Reason: SBP > 160 Last Admin: 11/25/24 19:32 Dose: 10 mg Documented By: MELANIE Sodium Bicarbonate 50 meq/ (Dextrose) 1,000 mls @ 75 mls/hr IV .[id number] [facility] Last Admin: 11/26/24 02:56 Dose: 75 mls/hr Documented By: CORY Lactated Ringer's (Lr) 1,000 mls @ 100 mls/hr IVCONT .Q10H [facility] Last Admin: 11/26/24 06:04 Dose: 100 mls/hr Documented By: CORY Lamotrigine (Lamotrigine 100 Mg Tablet) 150 mg PO DAILY [facility] Last Admin: 11/26/24 09:05 Dose: 150 mg Documented By: ADELINA Magnesium Hydroxide (Milk Of Magnesia 30 Ml Oral.Susp) 30 ml PO DAILY PRN PRN Reason: Constipation Last Admin: 11/26/24 09:05 Dose: 30 ml Documented By: ADELINA Melatonin (Melatonin 3 Mg Tablet) 6 mg PO BEDTIME PRN PRN Reason: Insomnia Memantine (Memantine Hcl 5 Mg Tablet) 5 mg PO BID [facility] Last Admin: 11/26/24 09:05 Dose: 5 mg Documented By: ADELINA Multivitamins/Vitamin C (Multivitamin Tablet) 1 tab PO DAILY [facility] Last Admin: 11/26/24 09:05 Dose: 1 tab Documented By: ADELINA Non-Formulary Medication (Simvastatin) 20 mg PO BEDTIME [facility] Ondansetron HCl (Ondansetron Hcl 4 Mg/2 Ml Vial) 4 mg IVPUSH Q8H PRN PRN Reason: Nausea and Vomiting Pantoprazole Sodium (Pantoprazole Sodium 40 Mg/10 Ml Vial) 40 mg IVPUSH BID@0630,1630 [facility] Last Admin: 11/26/24 06:05 Dose: 40 mg Documented By: CORY Polyethylene Glycol (Polyethylene Glycol 3350 17 Gm Powd.Pack) 17 gm PO DAILY [facility] Last Admin: 11/26/24 09:05 Dose: 17 gm Documented By: ADELINA Senna (Sennosides 8.6 Mg Tablet) 17.2 mg PO BEDTIME [facility] Last Admin: 11/25/24 22:07 Dose: 17.2 mg Documented By: CORY Sertraline HCl (Sertraline Hcl 50 Mg Tablet) 50 mg PO DAILY [facility] Last Admin: 11/26/24 09:05 Dose: 50 mg Documented By: ADELINA Sodium Chloride (0.9 % Sodium Chloride Flush 3 Ml Syringe) [facility] Last Admin: 11/26/24 08:12 Dose: Not Given Documented By: ADELINA Non-Admin Reason: Previously Administered Sodium Chloride (0.9 % Sodium Chloride Flush 3 Ml Syringe) 3 ml IVFLUSH QSNVFT [facility] Last Admin: 11/26/24 08:12 Dose: Not Given Documented By: ADELINA Non-Admin Reason: Previously Administered Trazodone HCl (Trazodone Hcl 100 Mg Tablet) 100 mg PO BEDTIME [facility] Last Admin: 11/25/24 22:07 Dose: 100 mg Documented By: CORY Vitamin D (Cholecalciferol (Vitamin D3) 25 Mcg Tablet) 25 mcg PO DAILY [facility] Last Admin: 11/26/24 09:05 Dose: 25 mcg Documented By: ADELINA Labs 11/26/24 07:33 11/26/24 07:33 Labs: Laboratory Results - last 24 hr 11/26/24 07:33 MCV 87.4 MCH 31.4 MCHC 36.0 H RDW 14.9 Plt Count 123 L MPV 10.6 Absolute Nucleated RBC 0.000 Nucleated RBC % (auto) 0.0 Anion Gap 18 Estim Creat Clear Calc 5.1 Estimated GFR 6 Random Glucose 114 Calcium 7.8 L Phosphorus 7.3 H Microbiology Microbiology Results: Microbiology 11/25/24 05:44 Urine Culture - Final Urine clean catch - Clean Catch Midstream 11/24/24 Unknown Urine Culture - Final Urine clean catch - Clean Catch Midstream No growth. 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 with anemia/mild thrombocytopenia, serologic workup to date negative, ADAMTS-13 pending, hold DAPT for renal biopsy 11/29, renal duplex done, check MRI brain - continue bicarbonate IV infusion hyperK - resolved after bicarbonate acute anemia - suspect related to renal disease but will also check peripheral smear - FOBT negative, continue PPI, GI consulted, no scope indicated - transfused 2u PRBCs with appropriate response moderate protein-calorie malnutrition - supplements seizure disorder - lamotrigine mood disorder - sertraline dementia - MRI brain as above - memantine hx TIA - hold DAPT for renal biopsy VTE ppx - SCDs dispo - TBD In my clinical judgment, the patient requires continued inpatient hospitalization for the following reasons: RONY, anemia Total time managing care of this patient today: 45 minutes. Quality Stroke Does the patient have a stroke diagnosis?: No Reason for No Anti-thrombotic by Day Two: Contraindicated (acute anemia ) VTE Prior VTE?: Yes VTE Risk Level:: Medical - moderate - high VTE Device Contraindication: N/A - Device Ordered VTE Drug Contraindication: Treatment Not Tolerated
[2024-11-26] MEDS: Lidocaine 4 % Patch ADH..PATCH 1 PATCH TRANSDERMA (12:52)
[2024-11-26] MEDS: oxyCODONE HCl Immed Release 5 MG TABLET PO ×2 (12:52→15:58)
--- NOTE | 2024-11-26 13:20 | PC.NURSE ---
Addendum entered by Raj Lees RN 11/26/24 17:46: informed of occult stool result Original Note: informed pt had an episode of n/v 5min post prn oxy administration. pt req another dose stating she prob threw it up.
[2024-11-26 15:46] VITALS: BP 158/72; PULSE 76; TEMP 36.7; O2SAT 92
[2024-11-26 17:45] LABS: OBS Int Ctl Valid YES; OBS1 POSITIVE (NEGATIVE)
[2024-11-26 19:54] VITALS: BP 190/82; PULSE 71; RESP 20; TEMP 37.3; O2SAT 95
[2024-11-26 20:07] VITALS: BP 190/82
[2024-11-26] MEDS: 0.9 % Sodium Chloride Flush 3 ML SYRINGE IVFLUSH (20:08)
[2024-11-27] VITALS (9 sets, daily range): BP systolic 116–186; BP diastolic 63–82; PULSE 71–87; RESP 14–16; TEMP 36.3–37; O2SAT 93–95; BMI 17.4
[2024-11-27] MEDS: oxyCODONE HCl Immed Release 5 MG TABLET PO ×3 (03:35→15:56)
[2024-11-27 07:04] LABS: Hematocrit 33.3 % (37.0-47.0); Hemoglobin 11.3 g/dl (12.0-16.0); Mean Corpuscular HGB Conc 33.9 g/dl (31.0-35.0); Mean Corpuscular Hemoglobin 30.5 pg (27.0-33.0); Mean Corpuscular Volume 90.0 fL (80.0-98.0); NRBC Abs Auto 0.000 X10*3/uL (0.0-0.012); NRBC Pct Auto 0.0 /100WBC (0.0-0.2); Platelet Count 141 X10*3/uL (160-400); Red Blood Count 3.70 X10*6/uL (4.20-5.50); White Blood Count 5.1 X10*3/uL (4.8-10.8)
[2024-11-27 07:08] LABS: Anion Gap 20 (12-20); Blood Urea Nitrogen 86 mg/dL (9-16); Calcium 8.6 mg/dL (8.4-10.2); Carbon Dioxide 18 mmol/L (22-29); Chloride 105 mmol/L (96-108); Creatinine Clr Calc Pharmacy 5.1; Estimated Glomerular Filt Rate 6; Potassium 4.8 mmol/L (3.3-5.1); Sodium 138 mmol/L (135-145)
--- NOTE | 2024-11-27 08:27 | P.CNUR_ITS ---
History of Present Illness Consult details Consult date: 11/27/24 Narrative: CC: RONY with possible nephrolithiasis 79-year-old female Past medical history significant for dementia and unexplained weight loss Recent colonoscopy with multiple polyps Acute kidney injury with creatinine 7.5 on admission. Baseline 3.[address] imaging reported as bilateral nephrolithiasis without evidence of hydronephrosis Imaging reviewed personally minimal evidence for nephrolithiasis Recommend medical management for RONY with nephrology No evidence of obstructive uropathy Review of Systems 2 Constitutional: Constitutional: Reports as per HPI and Reports no additional constitutional complaints Cardiovascular: Cardiovascular: Reports as per HPI and Reports no additional cardiovascular complaints Respiratory: Respiratory: Reports as per HPI and Reports no additional respiratory complaints Gastrointestinal: Gastrointestinal: Reports as per HPI and Reports no additional gastrointestinal complaints Genitourinary: Genitourinary: Reports as per HPI Musculoskeletal: Musculoskeletal: Reports no additional musculoskeletal complaints and Reports as per HPI Neurologic: Reports system reviewed and no additional complaints, except as documented and Reports as per HPI [facility] Past Medical History Medical History DVT (deep venous thrombosis) Depression Dementia Degenerative disease of nervous system, unspecified Multifactorial gait disorder Ataxia Peripheral neuropathy Arthritis Complex partial seizures Vitamin D deficiency TIA (transient ischemic attack) Seizure Alzheimer's dementia Anxiety Insomnia Osteoporosis Anemia Gait abnormality Partial symptomatic epilepsy with complex partial seizures, not intractable, without status epilepticus Asthma Pure hypercholesterolemia Peripheral arterial disease Unsteady gait Neuropathy Benign essential hypertension Alcoholism in remission Exertional dyspnea Family History Family History Father CVD (cardiovascular disease) Heart disease Hypertension Stroke Mother CVD (cardiovascular disease) Heart disease Asthma Maternal Grandmother No problems noted. Maternal Grandfather No problems noted. Paternal Grandmother No problems noted. Paternal Grandfather No problems noted. Maternal Aunt Tongue cancer Surgical History Surgical History Status post insertion of nerve stimulator Hx of foot surgery Hx of nasal septoplasty History of esophagogastroduodenoscopy (EGD) H/O colonoscopy History of angioplasty History of partial gastrectomy History of cholecystectomy History of cataract surgery History of hysterectomy History of tubal ligation S/P excision of neuroma Social History Social History Household Members: None Housing: Apartment Housing Other:: senior housing Are you a primary resident care associate to a significant other at home: No Do you presently have visiting nurse or other home services: No Alcohol intake: former Comment: NA Patient Tobacco Use Status: Former Tobacco user e-Cigarette/Vaping Use: Never Used Second Hand Smoke Exposure: No Advance Directives Date on File: 06/12/21 service: No Current occupational status: retired Current occupational exposures/hazards: No Cognitive needs: No Hearing needs: No Vision needs: Yes Travel History Ebola Risk: Travel/Contact With Anyone From Affected Area/s: No Has Patient Experienced Ebola Symptoms: No Meds Allergies Allergy/AdvReac Type Severity Reaction Status Date / Time morphine (Morphine) Allergy Severe VOMITING/LONGORIA Verified 11/24/24 20:24 LLUCINATION S codeine (Codeine) Allergy Intermediate VOMITING/HALLUCINATIONS, Verified 11/24/24 20:24 nause/extended abdomen latex Allergy Unknown Unknown Verified 11/24/24 20:24 atorvastatin AdvReac Intermediate fever, Verified 11/24/24 20:24 chills, abd pain, numbness capsaicin (CAPSAICIN) AdvReac Intermediate BURNING Verified 11/24/24 20:24 bacitracin Allergy Intermediate redness Uncoded 11/24/24 20:24 and itching adhesives Allergy Mild rash Uncoded 11/24/24 20:24 Active Medications: Current Medications Acetaminophen (Acetaminophen 325 Mg Tablet) 650 mg PO Q6H PRN PRN Reason: Pain, Mild 1-3,fever,headache Last Admin: 11/26/24 15:58 Dose: 650 mg Albuterol Sulfate (Albuterol Sulfate 90 Mcg 8 Gm Inhaler) 2 puff INHALE Q6H PRN PRN Reason: shortness of breath or wheezing Albuterol/Ipratropium (Albuterol/Iprat 2.5/0.5mg 3 Ml Ampul.Neb) 3 ml INHALE Q4H PRN PRN Reason: Shortness of Breath/Wheezing Bisacodyl (Bisacodyl 10 Mg Supp.Rect) 10 mg MS BEDTIME PRN PRN Reason: Constipation Calcium Carbonate (Calcium Carbonate 750 Mg Tab.Chew) 750 mg PO Q4H PRN PRN Reason: Heartburn Clonazepam (Clonazepam 0.5 Mg Tablet) 0.5 mg PO BID PRN PRN Reason: Anxiety Last Admin: 11/27/24 05:33 Dose: 0.5 mg Clonazepam (Clonazepam 1 Mg Tablet) 1 mg PO BEDTIME PRN PRN Reason: Anxiety Last Admin: 11/26/24 19:48 Dose: 1 mg Cyclobenzaprine HCl (Cyclobenzaprine Hcl 5 Mg Tablet) 5 mg PO TID PRN PRN Reason: Muscle Spasm Duloxetine HCl (Duloxetine Hcl 30 Mg Capsule.Dr) 30 mg PO BID [facility] Last Admin: 11/26/24 20:07 Dose: 30 mg Fluticasone Propionate (Fluticasone Propionate Nasal 16 Gm [place]) 2 spray NOSTRIL-B DAILY PRN PRN Reason: for allergies Hydralazine HCl (Hydralazine Hcl 20 Mg/Ml Vial) 10 mg IVPUSH Q6H PRN; Protocol PRN Reason: SBP > 160 Last Admin: 11/27/24 04:01 Dose: 10 mg Sodium Bicarbonate 50 meq/ (Dextrose) 1,000 mls @ 75 mls/hr IV .[id number] [facility] On Hold: 11/26/24 12:18 Last Infusion: 11/26/24 12:51 Dose: Infused Lamotrigine (Lamotrigine 100 Mg Tablet) 150 mg PO DAILY [facility] Last Admin: 11/26/24 09:05 Dose: 150 mg Lidocaine (Lidocaine 4 % Patch Adh..Patch) 1 patch TRANSDERMA DAILY [facility]; Protocol Last Admin: 11/26/24 12:52 Dose: 1 patch Magnesium Hydroxide (Milk Of Magnesia 30 Ml Oral.Susp) 30 ml PO DAILY PRN PRN Reason: Constipation Last Admin: 11/26/24 09:05 Dose: 30 ml Melatonin (Melatonin 3 Mg Tablet) 6 mg PO BEDTIME PRN PRN Reason: Insomnia Memantine (Memantine Hcl 5 Mg Tablet) 5 mg PO BID [facility] Last Admin: 11/26/24 20:08 Dose: 5 mg Multivitamins/Vitamin C (Multivitamin Tablet) 1 tab PO DAILY [facility] Last Admin: 11/26/24 09:05 Dose: 1 tab Non-Formulary Medication (Simvastatin) 20 mg PO BEDTIME [facility] Ondansetron HCl (Ondansetron Hcl 4 Mg/2 Ml Vial) 4 mg IVPUSH Q8H PRN PRN Reason: Nausea and Vomiting Last Admin: 11/26/24 13:01 Dose: 4 mg Oxycodone HCl (Oxycodone Hcl Immed Release 5 Mg Tablet) 5 mg PO Q6H PRN PRN Reason: Pain, Severe (Pain Scale 7-10) Last Admin: 11/27/24 03:35 Dose: 5 mg Pantoprazole Sodium (Pantoprazole Sodium 40 Mg/10 Ml Vial) 40 mg IVPUSH BID@0630,1630 [facility] Last Admin: 11/27/24 05:27 Dose: 40 mg Polyethylene Glycol (Polyethylene Glycol 3350 17 Gm Powd.Pack) 17 gm PO DAILY [facility] Last Admin: 11/26/24 09:05 Dose: 17 gm Senna (Sennosides 8.6 Mg Tablet) 17.2 mg PO BEDTIME [facility] Last Admin: 11/26/24 20:07 Dose: 17.2 mg Sertraline HCl (Sertraline Hcl 50 Mg Tablet) 50 mg PO DAILY [facility] Last Admin: 11/26/24 09:05 Dose: 50 mg Sodium Chloride (0.9 % Sodium Chloride Flush 3 Ml Syringe) 3 ml IVFLUSH [facility] Last Admin: 11/26/24 20:08 Dose: 3 ml Sodium Chloride (0.9 % Sodium Chloride Flush 3 Ml Syringe) 3 ml IVFLUSH [facility] Last Admin: 11/27/24 03:39 Dose: Not Given Trazodone HCl (Trazodone Hcl 100 Mg Tablet) 100 mg PO BEDTIME [facility] Last Admin: 11/26/24 20:08 Dose: 100 mg Vitamin D (Cholecalciferol (Vitamin D3) 25 Mcg Tablet) 25 mcg PO DAILY [facility] Last Admin: 11/26/24 09:05 Dose: 25 mcg Home Medications ?Medication ?Instructions ?Recorded ?Confirmed ?Last Taken ?Type lamotrigine 150 mg tablet 150 mg PO DAILY 11/25/2409/1311/24/24 09:00 History multivitamin 1 tab PO DAILY 11/25/24 090 09/1311/24/24 09:00 History Physical Exam 2 Vital Signs: Vital Signs: Last Vital Signs Temp 97.8 F 11/27/24 07:16 Pulse 87 11/27/24 07:16 Resp 16 11/27/24 07:16 BP 138/63 11/27/24 07:16 Pulse Ox 93 11/27/24 07:16 O2 Del Method Room Air 11/27/24 07:16 BMI result Body Mass Index 17.4 Const: General: cooperative, healthy appearing, comfortable and no acute distress Orientation/consciousness: patient oriented x3 HEENT: Face and sinus: Yes normal facial exam Mouth: moist mucous membranes Neck: Neck: Yes normal visual inspection, Yes full ROM and Yes trachea midline Chest: Chest palpation & inspection: normal inspection of the chest Resp: Effort & Inspection: normal respiratory effort, able to speak in complete sentences and no respiratory distress GI: Inspection: Yes normal to inspection Back/Spine/Pelvis: Cervical Spine: normal cervical lordosis Thoracic/Lumbar Spine: thoracic and lumbar spine normal to inspection Skin: General skin exam: no rashes or lesions noted Neuro: General: patient oriented x3, tone normal and moves all extremities Extrem: General: Yes normal to inspection and Yes capillary refill normal Results Labs 11/27/24 06:20 11/27/24 06:20 Labs: Abnormal lab results 11/27/24 Range/Units 06:20 RBC 3.70 L (4.20-5.50) X10*6/uL Hgb 11.3 L (12.0-16.0) g/dl Hct 33.3 L (37.0-47.0) % Plt Count 141 L (160-400) X10*3/uL Carbon Dioxide 18 L (22-29) mmol/L BUN 86 H (9-16) mg/dL Creatinine 6.88 H* (0.5-1.4) mg/dL Phosphorus 5.5 H (2.7-4.5) mg/dL Short CBC 11/27/24 Range/Units 06:20 WBC 5.1 (4.8-10.8) X10*3/uL Hgb 11.3 L (12.0-16.0) g/dl Hct 33.3 L (37.0-47.0) % Plt Count 141 L (160-400) X10*3/uL BMP 11/27/24 06:20 Sodium 138 Potassium 4.8 Chloride 105 Carbon Dioxide 18 L BUN 86 H Creatinine 6.88 H* Calcium 8.6 D Urine 11/24/24 11/25/24 Range/Units 20:36 05:44 Urine Color Yellow Yellow Urine Appearance Clear Clear Urine pH 5.0 5.5 (5.0-9.0) Ur Specific [place] 1.010 <= 1.005 (1.005-1.025) Urine Protein 30 (1+) H Trace (Neg-Trace) mg/dL Urine Glucose (UA) Negative Negative (Negative) mg/dL All other labs normal. Assessment and Plan (1) Bilateral nephrolithiasis: Status: Acute Plan Medical management of RONY Procedures Date of Service Date of Service: 11/27/24
[2024-11-27] MEDS: 0.9 % Sodium Chloride Flush 3 ML SYRINGE IVFLUSH ×4 (09:35→20:09)
[2024-11-27] MEDS: Lidocaine 4 % Patch ADH..PATCH 1 PATCH TRANSDERMA (09:40)
--- NOTE | 2024-11-27 10:29 | MHC.CM.PN ---
Per Rounds discussion, Patient is not yet medically cleared for dc (Renal Biopsy 11/28/2024); Patient may benefit from a PT Eval to assist with disposition. CM will follow.
--- NOTE | 2024-11-27 11:29 | MHC.CLN ---
CONSULT PT IS MODERATELY MALNOURISHED PT WITH MILDLY DEPLETED SUBCUTANEOUS FAT AND MUSCLE MASS WITH 6% NONSIGNIFICANT WT LOSS X1 YEAR PT REPORTED WT 130# X1 YEAR AGO HOWEVER PAST WT HX REVEALS WT 114# DIET RX: CARDIAC-RECOMMEND CHANGING DIET TO 2GM NA LOW K+ R/T RENAL FAILURE RECOMMEND ADDING ENSURE CLEAR TID TO INCREASE KCALS SUPPLEMENT IS RENAL FRIENDLY AND WILL PROVIDE 720KCALS, 24G PROTEIN MONITOR PO INTAKE AND ENCOURAGE SUPPLEMENTS SEE FULL ASSESSMENT
--- NOTE | 2024-11-27 11:30 | PM.CNNEP ---
History of Present Illness Reason for Consult Consult date: 11/27/24 Chief Complaint Chief complaint: Acute on Chronic Renal Failure, Severe Anemia History of Present Illness Narrative: 79 y/o female, medical history includes dementia, etOH abuse in remission since 2007, PAD, TIA on dapt, seizures, HTN, HLD, PUD s/p gastrectomy in , recent unexplained weight loss. Presented 11/25 after wrosening renal function on outpatient labs. Nephrology consulted for RONY creatinine 0.71 in Jan 2024 09/27/24 2.54 11/04/24 3.32 11/24/24 7.49 11/25 7.29 11/27 6.88 patient reports she has had a poor appetite recently. States some vomiting, does not feel hungry, feels full frequently. Denies recent diarrhea, states she was contipated before she came in. Ongoing fatigue. Reports urine output reduced lately, but she continues to make urine. No rash. No bone pain. Otherwise denies new complaints/concerns. sees Dr Hawkins as outpatient. No monoclonal proteins detected on serum immunofixation in mid October. repeat pending. VIRAL negative, ANCA screen negative. complements normal. No proteinuria, +wbcs in urine. Review of Systems Review of Systems Yes all other systems are reviewed and are negative PMFSH Past Medical History Medical History DVT (deep venous thrombosis) Depression Dementia Degenerative disease of nervous system, unspecified Multifactorial gait disorder Ataxia Peripheral neuropathy Arthritis Complex partial seizures Vitamin D deficiency TIA (transient ischemic attack) Seizure Alzheimer's dementia Anxiety Insomnia Osteoporosis Anemia Gait abnormality Partial symptomatic epilepsy with complex partial seizures, not intractable, without status epilepticus Asthma Pure hypercholesterolemia Peripheral arterial disease Unsteady gait Neuropathy Benign essential hypertension Alcoholism in remission Exertional dyspnea Family History Family History Father CVD (cardiovascular disease) Heart disease Hypertension Stroke Mother CVD (cardiovascular disease) Heart disease Asthma Maternal Grandmother No problems noted. Maternal Grandfather No problems noted. Paternal Grandmother No problems noted. Paternal Grandfather No problems noted. Maternal Aunt Tongue cancer Surgical History Surgical History Status post insertion of nerve stimulator Hx of foot surgery Hx of nasal septoplasty History of esophagogastroduodenoscopy (EGD) H/O colonoscopy History of angioplasty History of partial gastrectomy History of cholecystectomy History of cataract surgery History of hysterectomy History of tubal ligation S/P excision of neuroma Social History Social History Household Members: None Housing: Apartment Housing Other:: senior housing Are you a primary foster care worker to a significant other at home: No Do you presently have visiting nurse or other home services: No Alcohol intake: former Comment: NA Patient Tobacco Use Status: Former Tobacco user e-Cigarette/Vaping Use: Never Used Second Hand Smoke Exposure: No Advance Directives Date on File: 06/12/21 service: No Current occupational status: retired Current occupational exposures/hazards: No Cognitive needs: No Hearing needs: No Vision needs: Yes Travel History Ebola Risk: Travel/Contact With Anyone From Affected Area/s: No Has Patient Experienced Ebola Symptoms: No Meds Allergies Allergy/AdvReac Type Severity Reaction Status Date / Time morphine (Morphine) Allergy Severe VOMITING/LONGORIA Verified 11/24/24 20:24 LLUCINATION S codeine (Codeine) Allergy Intermediate VOMITING/HALLUCINATIONS, Verified 11/24/24 20:24 nause/extended abdomen latex Allergy Unknown Unknown Verified 11/24/24 20:24 atorvastatin AdvReac Intermediate fever, Verified 11/24/24 20:24 chills, abd pain, numbness capsaicin (CAPSAICIN) AdvReac Intermediate BURNING Verified 11/24/24 20:24 bacitracin Allergy Intermediate redness Uncoded 11/24/24 20:24 and itching adhesives Allergy Mild rash Uncoded 11/24/24 20:24 Active Medications: Current Medications Acetaminophen (Acetaminophen 325 Mg Tablet) 650 mg PO Q6H PRN PRN Reason: Pain, Mild 1-3,fever,headache Last Admin: 11/26/24 15:58 Dose: 650 mg Albuterol Sulfate (Albuterol Sulfate 90 Mcg 8 Gm Inhaler) 2 puff INHALE Q6H PRN PRN Reason: shortness of breath or wheezing Albuterol/Ipratropium (Albuterol/Iprat 2.5/0.5mg 3 Ml Ampul.Neb) 3 ml INHALE Q4H PRN PRN Reason: Shortness of Breath/Wheezing Bisacodyl (Bisacodyl 10 Mg Supp.Rect) 10 mg LA BEDTIME PRN PRN Reason: Constipation Calcium Carbonate (Calcium Carbonate 750 Mg Tab.Chew) 750 mg PO Q4H PRN PRN Reason: Heartburn Clonazepam (Clonazepam 0.5 Mg Tablet) 0.5 mg PO BID PRN PRN Reason: Anxiety Last Admin: 11/27/24 05:33 Dose: 0.5 mg Clonazepam (Clonazepam 1 Mg Tablet) 1 mg PO BEDTIME PRN PRN Reason: Anxiety Last Admin: 11/26/24 19:48 Dose: 1 mg Cyclobenzaprine HCl (Cyclobenzaprine Hcl 5 Mg Tablet) 5 mg PO TID PRN PRN Reason: Muscle Spasm Duloxetine HCl (Duloxetine Hcl 30 Mg Capsule.Dr) 30 mg PO BID [facility] Last Admin: 11/27/24 09:33 Dose: 30 mg Fluticasone Propionate (Fluticasone Propionate Nasal 16 Gm [place]) 2 spray NOSTRIL-B DAILY PRN PRN Reason: for allergies Hydralazine HCl (Hydralazine Hcl 20 Mg/Ml Vial) 10 mg IVPUSH Q6H PRN; Protocol PRN Reason: SBP > 160 Last Admin: 11/27/24 04:01 Dose: 10 mg Hydralazine HCl (Hydralazine Hcl 50 Mg Tablet) 50 mg PO TID [facility]; Protocol Last Admin: 11/27/24 12:13 Dose: 50 mg Sodium Bicarbonate 50 meq/ (Dextrose) 1,000 mls @ 75 mls/hr IV .[id number] [facility] On Hold: 11/26/24 12:18 Last Infusion: 11/26/24 12:51 Dose: Infused Lamotrigine (Lamotrigine 100 Mg Tablet) 150 mg PO DAILY [facility] Last Admin: 11/27/24 09:33 Dose: 150 mg Lidocaine (Lidocaine 4 % Patch Adh..Patch) 1 patch TRANSDERMA DAILY [facility]; Protocol Last Admin: 11/27/24 09:40 Dose: 1 patch Magnesium Hydroxide (Milk Of Magnesia 30 Ml Oral.Susp) 30 ml PO DAILY PRN PRN Reason: Constipation Last Admin: 11/26/24 09:05 Dose: 30 ml Melatonin (Melatonin 3 Mg Tablet) 6 mg PO BEDTIME PRN PRN Reason: Insomnia Memantine (Memantine Hcl 5 Mg Tablet) 5 mg PO BID [facility] Last Admin: 11/27/24 09:33 Dose: 5 mg Multivitamins/Vitamin C (Multivitamin Tablet) 1 tab PO DAILY [facility] Last Admin: 11/27/24 09:34 Dose: 1 tab Non-Formulary Medication (Simvastatin) 20 mg PO BEDTIME [facility] Ondansetron HCl (Ondansetron Hcl 4 Mg/2 Ml Vial) 4 mg IVPUSH Q8H PRN PRN Reason: Nausea and Vomiting Last Admin: 11/27/24 09:43 Dose: 4 mg Oxycodone HCl (Oxycodone Hcl Immed Release 5 Mg Tablet) 5 mg PO Q6H PRN PRN Reason: Pain, Severe (Pain Scale 7-10) Last Admin: 11/27/24 09:33 Dose: 5 mg Pantoprazole Sodium (Pantoprazole Sodium 40 Mg/10 Ml Vial) 40 mg IVPUSH BID@0630,1630 [facility] Last Admin: 11/27/24 05:27 Dose: 40 mg Polyethylene Glycol (Polyethylene Glycol 3350 17 Gm Powd.Pack) 17 gm PO DAILY [facility] Last Admin: 11/27/24 09:34 Dose: Not Given Senna (Sennosides 8.6 Mg Tablet) 17.2 mg PO BEDTIME [facility] Last Admin: 11/26/24 20:07 Dose: 17.2 mg Sertraline HCl (Sertraline Hcl 50 Mg Tablet) 50 mg PO DAILY [facility] Last Admin: 11/27/24 09:34 Dose: 50 mg Sodium Chloride (0.9 % Sodium Chloride Flush 3 Ml Syringe) [facility] Last Admin: 11/27/24 09:35 Dose: 3 ml Sodium Chloride (0.9 % Sodium Chloride Flush 3 Ml Syringe) 3 ml IVFLUSH QSNYFT [facility] Last Admin: 11/27/24 09:27 Dose: Not Given Trazodone HCl (Trazodone Hcl 100 Mg Tablet) 100 mg PO BEDTIME [facility] Last Admin: 11/26/24 20:08 Dose: 100 mg Vitamin D (Cholecalciferol (Vitamin D3) 25 Mcg Tablet) 25 mcg PO DAILY [facility] Last Admin: 11/27/24 09:34 Dose: 25 mcg Home Medications ?Medication ?Instructions ?Recorded ?Confirmed ?Last Taken ?Type lamotrigine 150 mg tablet 150 mg PO DAILY 11/25/24 11/25/24 11/24/24 09:00 History multivitamin 1 tab PO DAILY 11/25/24 11/25/24 11/24/24 09:00 History Physical Exam Vital Signs: Last Vital Signs Temp 98.1 F 11/27/24 11:27 Pulse 71 11/27/24 11:27 Resp 16 11/27/24 11:27 BP 116/65 11/27/24 11:27 Pulse Ox 95 11/27/24 11:27 O2 Del Method Room Air 11/27/24 11:27 BMI result Body Mass Index 17.4 Const General: no acute distress, alert and awake Resp Effort & Inspection: normal respiratory effort and able to speak in complete sentences Auscultation: clear to auscultation bilaterally Cardio Rate: regular rate Rhythm: regular rhythm Heart sounds: S1 normal heart sound present and S2 normal heart sound present GI Palpation (GI): Soft to palpation and nontender Skin Rashes: no rashes Extrem General: No edema Results Lab Results 11/27/24 06:20 11/27/24 06:20 Lab results: Chemistry 11/24/24 11/25/24 11/26/24 22:27 09:37 07:33 Sodium 141 139 137 Potassium 5.3 H 4.3 4.8 Carbon Dioxide 16 L 16 L 19 L BUN 105 H 98 H 92 H Creatinine 7.69 H* 7.29 H* 6.82 H* Calcium 8.0 L 7.8 L 7.8 L Phosphorus 8.1 H 7.3 H 11/27/24 06:20 Sodium 138 Potassium 4.8 Carbon Dioxide 18 L BUN 86 H Creatinine 6.88 H* Calcium 8.6 D Phosphorus 5.5 H Hematology 11/24/24 11/25/24 11/26/24 22:27 09:37 07:33 WBC 3.5 L 4.4 L 5.0 Hgb 6.9 L* 8.9 L D 10.0 L Plt Count 125 L 116 L 123 L 11/27/24 06:20 WBC 5.1 Hgb 11.3 L Plt Count 141 L Urinalysis 11/24/24 11/25/24 20:36 05:44 Urine Color Yellow Yellow Urine Appearance Clear Clear Urine pH 5.0 5.5 Ur Specific [place] 1.010 <= 1.005 Urine Protein 30 (1+) H Trace Urine Glucose (UA) Negative Negative Urine Ketones Negative Negative Urine Blood Negative Trace H Urine Nitrite Negative Negative Ur Leukocyte Esterase Moderate (2+) H Trace H Urine RBC 0-2 0-2 Urine WBC 21-50 H 6-10 H Ur Squamous Epith Cells 3-5 0-2 Hyaline Casts 3-5 0-2 Urine Studies 11/25/24 05:44 Urine Osmolality 267 L Urine Creatinine 23.29 Assessment and Plan (1) RONY (acute kidney injury): Status: Acute Plan Patient with RONY of unknown etiology CT without obstruction Thrombotic angiopathy on differential- atypical HUS given anemia; no hemolysis so not typical HUS. peripheral smear pending. complements normal, will repeat. serum immunofixation unremarkable, will repeat. VIRAL negative. ANCA negative. No proteinuria, +wbcs in urine. Will get renal biopsy, discussed with patient. hydralazine added for tight BP control for renal biopsy. Patient will need DDAVP prior to biopsy to reduce bleeding risk. encourage oral hydration regular blood pressure checks, close I&O monitoring. avoid nephrotoxins continue supportive care Discussed with Dr Ramirez. Procedures Date of Service Date of Service: 11/27/24
--- NOTE | 2024-11-27 13:52 | P.PNIM_ITS ---
Subjective Subjective Date of Service: 11/27/24 Interval History: still c/o nausea Review of Systems Review of Systems: Yes all other systems are reviewed and are negative Physical Exam 2 Vital Signs: Vital Signs: Last Vital Signs Temp 98.1 F 11/27/24 11:27 Pulse 71 11/27/24 11:27 Resp 16 11/27/24 11:27 BP 116/65 11/27/24 11:27 Pulse Ox 95 11/27/24 11:27 O2 Del Method Room Air 11/27/24 11:27 BMI result Body Mass Index 17.4 Gen: in no acute distress HEENT: sclera anicteric, moist mucus membranes Neck: supple Lungs: clear to auscultation bilaterally Heart: regular rate and rhythm, no murmurs Abd: soft, non-tender, non-distended Ext: no edema Skin: warm/well-perfused Neuro: alert and oriented x3, no focal findings Psych: appropriate affect Objective Data Active Medications Acetaminophen (Acetaminophen 325 Mg Tablet) 650 mg PO Q6H PRN PRN Reason: Pain, Mild 1-3,fever,headache Last Admin: 11/26/24 15:58 Dose: 650 mg Documented By: ADELINA Albuterol Sulfate (Albuterol Sulfate 90 Mcg 8 Gm Inhaler) 2 puff INHALE Q6H PRN PRN Reason: shortness of breath or wheezing Albuterol/Ipratropium (Albuterol/Iprat 2.5/0.5mg 3 Ml Ampul.Neb) 3 ml INHALE Q4H PRN PRN Reason: Shortness of Breath/Wheezing Bisacodyl (Bisacodyl 10 Mg Supp.Rect) 10 mg SD BEDTIME PRN PRN Reason: Constipation Calcium Carbonate (Calcium Carbonate 750 Mg Tab.Chew) 750 mg PO Q4H PRN PRN Reason: Heartburn Clonazepam (Clonazepam 0.5 Mg Tablet) 0.5 mg PO BID PRN PRN Reason: Anxiety Last Admin: 11/27/24 05:33 Dose: 0.5 mg Documented By: NARCISA Clonazepam (Clonazepam 1 Mg Tablet) 1 mg PO BEDTIME PRN PRN Reason: Anxiety Last Admin: 11/26/24 19:48 Dose: 1 mg Documented By: NARCISA Cyclobenzaprine HCl (Cyclobenzaprine Hcl 5 Mg Tablet) 5 mg PO TID PRN PRN Reason: Muscle Spasm Duloxetine HCl (Duloxetine Hcl 30 Mg Capsule.Dr) 30 mg PO BID [facility] Last Admin: 11/27/24 09:33 Dose: 30 mg Documented By: LETHA Fluticasone Propionate (Fluticasone Propionate Nasal 16 Gm [place]) 2 spray NOSTRIL-B DAILY PRN PRN Reason: for allergies Hydralazine HCl (Hydralazine Hcl 20 Mg/Ml Vial) 10 mg IVPUSH Q6H PRN; Protocol PRN Reason: SBP > 160 Last Admin: 11/27/24 04:01 Dose: 10 mg Documented By: NARCISA Hydralazine HCl (Hydralazine Hcl 25 Mg Tablet) 25 mg PO TID [facility]; Protocol Sodium Bicarbonate 50 meq/ (Dextrose) 1,000 mls @ 75 mls/hr IV .[id number] [facility] On Hold: 11/26/24 12:18 Last Infusion: 11/26/24 12:51 Dose: Infused Documented By: ADELINA Lamotrigine (Lamotrigine 100 Mg Tablet) 150 mg PO DAILY [facility] Last Admin: 11/27/24 09:33 Dose: 150 mg Documented By: LETHA Lidocaine (Lidocaine 4 % Patch Adh..Patch) 1 patch TRANSDERMA DAILY [facility]; Protocol Last Admin: 11/27/24 09:40 Dose: 1 patch Documented By: LETHA Magnesium Hydroxide (Milk Of Magnesia 30 Ml Oral.Susp) 30 ml PO DAILY PRN PRN Reason: Constipation Last Admin: 11/26/24 09:05 Dose: 30 ml Documented By: ADELINA Melatonin (Melatonin 3 Mg Tablet) 6 mg PO BEDTIME PRN PRN Reason: Insomnia Memantine (Memantine Hcl 5 Mg Tablet) 5 mg PO BID [facility] Last Admin: 11/27/24 09:33 Dose: 5 mg Documented By: LETHA Multivitamins/Vitamin C (Multivitamin Tablet) 1 tab PO DAILY [facility] Last Admin: 11/27/24 09:34 Dose: 1 tab Documented By: LETHA Non-Formulary Medication (Simvastatin) 20 mg PO BEDTIME [facility] Ondansetron HCl (Ondansetron Hcl 4 Mg/2 Ml Vial) 4 mg IVPUSH Q8H PRN PRN Reason: Nausea and Vomiting Last Admin: 11/27/24 09:43 Dose: 4 mg Documented By: LETHA Oxycodone HCl (Oxycodone Hcl Immed Release 5 Mg Tablet) 5 mg PO Q6H PRN PRN Reason: Pain, Severe (Pain Scale 7-10) Last Admin: 11/27/24 09:33 Dose: 5 mg Documented By: LETHA Pantoprazole Sodium (Pantoprazole Sodium 40 Mg/10 Ml Vial) 40 mg IVPUSH BID@0630,1630 [facility] Last Admin: 11/27/24 05:27 Dose: 40 mg Documented By: NARCISA Polyethylene Glycol (Polyethylene Glycol 3350 17 Gm Powd.Pack) 17 gm PO DAILY [facility] Last Admin: 11/27/24 09:34 Dose: Not Given Documented By: LETHA Non-Admin Reason: Patient Refused Senna (Sennosides 8.6 Mg Tablet) 17.2 mg PO BEDTIME [facility] Last Admin: 11/26/24 20:07 Dose: 17.2 mg Documented By: NARCISA Sertraline HCl (Sertraline Hcl 50 Mg Tablet) 50 mg PO DAILY [facility] Last Admin: 11/27/24 09:34 Dose: 50 mg Documented By: LETHA Sodium Chloride (0.9 % Sodium Chloride Flush 3 Ml Syringe) 3 ml IVFLUSH [facility] Last Admin: 11/27/24 09:35 Dose: 3 ml Documented By: LETHA Sodium Chloride (0.9 % Sodium Chloride Flush 3 Ml Syringe) [facility] Last Admin: 11/27/24 09:27 Dose: Not Given Documented By: LETHA Non-Admin Reason: Duplicate Order Trazodone HCl (Trazodone Hcl 100 Mg Tablet) 100 mg PO BEDTIME [facility] Last Admin: 11/26/24 20:08 Dose: 100 mg Documented By: NARCISA Vitamin D (Cholecalciferol (Vitamin D3) 25 Mcg Tablet) 25 mcg PO DAILY [facility] Last Admin: 11/27/24 09:34 Dose: 25 mcg Documented By: LETHA Labs 11/27/24 06:20 11/27/24 06:20 Labs: Laboratory Results - last 24 hr 11/25/24 11/26/24 11/26/24 09:37 13:32 13:32 MCV MCH MCHC RDW Plt Count MPV Absolute Nucleated RBC Nucleated RBC % (auto) Smear Path Review SEE NOTE Anion Gap Estim Creat Clear Calc Estimated GFR Random Glucose Calcium Phosphorus Stool Collect Date Cancelled Stool Occult Blood Cancelled POSITIVE Stool 2 Collect Date Cancelled Stool Occult Blood #2 Cancelled Stool 3 Collect Date Cancelled Stool Occult Blood #3 Cancelled 11/27/24 06:20 MCV 90.0 MCH 30.5 MCHC 33.9 RDW 14.7 Plt Count 141 L MPV 11.2 Absolute Nucleated RBC 0.000 Nucleated RBC % (auto) 0.0 Smear Path Review Anion Gap 20 Estim Creat Clear Calc 5.1 Estimated GFR 6 Random Glucose 102 Calcium 8.6 D Phosphorus 5.5 H Stool Collect Date Stool Occult Blood Stool 2 Collect Date Stool Occult Blood #2 Stool 3 Collect Date Stool Occult Blood #3 Microbiology Microbiology Results: Microbiology 11/25/24 05:44 Urine Culture - Final Urine clean catch - Clean Catch Midstream 11/24/24 Unknown Urine Culture - Final Urine clean catch - Clean Catch Midstream No growth. Assessment and Plan (1) Acute renal failure: Status: Acute Plan d3, 79yo F with HLD, HTN, [place] I for PUD, EtOH abuse in remission since 2007, mood disorder, eearly dementia, PAD, TIA on DAPT, seizure disorder, sent in by design sales consultant due to worsening renal function and anemia RONY acute metabolic acidosis - discussed with Dr Guidry, concern for atypical TMA with anemia/mild thrombocytopenia, serologic workup to date negative, ADAMTS-13 pending, hold DAPT for renal biopsy 11/29 and will need dDAVP just prior to biopsy, renal duplex done, no MRI brain given spinal stimulator - hold bicarbonate infusion hyperK - resolved after bicarbonate acute anemia - suspect related to renal disease - peripheral smear: Pancytopenia:Normocytic and normochromic anemia with occasional Lupton cells: consider anemia of chronic disease vs blood loss vs other etiologies.Leukopenia and thrombocytopenia: smear not diagnostic of etiology. - FOBT positive, continue PPI, GI consulted, no scope indicated - transfused 2u PRBCs with appropriate response moderate protein-calorie malnutrition - supplements seizure disorder - lamotrigine mood disorder - sertraline dementia - memantine hx TIA - hold DAPT for renal biopsy VTE ppx - SCDs dispo - TBD In my clinical judgment, the patient requires continued inpatient hospitalization for the following reasons: RONY, anemia Total time managing care of this patient today: 45 minutes. Quality Stroke Does the patient have a stroke diagnosis?: No Reason for No Anti-thrombotic by Day Two: Contraindicated (acute anemia ) VTE Prior VTE?: Yes VTE Risk Level:: Medical - moderate - high VTE Device Contraindication: N/A - Device Ordered VTE Drug Contraindication: Treatment Not Tolerated
[2024-11-28] VITALS (9 sets, daily range): BP systolic 131–180; BP diastolic 61–82; PULSE 77–91; RESP 16–18; TEMP 36.2–37.1; O2SAT 92–95
--- NOTE | 2024-11-28 | ECG_ITS ---
Test Reason : pain Blood Pressure : */* mmHG Vent. Rate : 89 BPM Atrial Rate : 89 BPM P-R Int : 172 ms QRS Dur : 68 ms QT Int : 372 ms P-R-T Axes : 51 -15 55 degrees QTcB Int : 452 ms Normal sinus rhythm Cannot rule out Anterior infarct , age undetermined Abnormal ECG When compared with ECG of 24-Nov-2024 21:31, No significant change was found Referred By: Justo Crawley Electronically Signed By: FRANNIE CHEN MD
[2024-11-28] MEDS: 0.9 % Sodium Chloride Flush 3 ML SYRINGE IVFLUSH ×4 (00:04→20:04)
[2024-11-28 02:24] LABS: Troponin-I High Sensitivity 16.5 ng/L (<3.5-17.0)
[2024-11-28 04:20] LABS: Troponin-I High Sensitivity 15.7 ng/L (<3.5-17.0)
[2024-11-28 06:55] LABS: Hematocrit 30.9 % (37.0-47.0); Hemoglobin 10.5 g/dl (12.0-16.0); Mean Corpuscular HGB Conc 34.0 g/dl (31.0-35.0); Mean Corpuscular Hemoglobin 30.6 pg (27.0-33.0); Mean Corpuscular Volume 90.1 fL (80.0-98.0); NRBC Abs Auto 0.000 X10*3/uL (0.0-0.012); NRBC Pct Auto 0.0 /100WBC (0.0-0.2); Platelet Count 149 X10*3/uL (160-400); Red Blood Count 3.43 X10*6/uL (4.20-5.50); White Blood Count 6.7 X10*3/uL (4.8-10.8)
[2024-11-28] MEDS: Lidocaine 4 % Patch ADH..PATCH 1 PATCH TRANSDERMA (07:50)
[2024-11-28 08:07] LABS: Alanine Aminotransferase 20 U/L (0-31); Albumin Level 3.7 g/dL (3.5-5.0); Alkaline Phosphatase 71 U/L (39-117); Anion Gap 17 (12-20); Aspartate Amino Transferase 19 U/L (5-31); Blood Urea Nitrogen 87 mg/dL (9-16); Calcium 8.5 mg/dL (8.4-10.2); Carbon Dioxide 21 mmol/L (22-29); Chloride 106 mmol/L (96-108); Creatinine Clr Calc Pharmacy 4.7; Estimated Glomerular Filt Rate 5; Potassium 4.5 mmol/L (3.3-5.1); Sodium 139 mmol/L (135-145); Total Protein 5.4 g/dL (6.5-8.0)
--- NOTE | 2024-11-28 09:50 | HO.PM.IMPN ---
Subjective Subjective Date of Service: 11/28/24 Interval History: c/o nausea/vomiting no abd pain Review of Systems Review of Systems: Yes all other systems are reviewed and are negative Physical Exam Vital Signs: Vital Signs: Last Vital Signs Temp 97.8 F 11/28/24 06:58 Pulse 83 11/28/24 06:58 Resp 16 11/28/24 06:58 BP 166/72 H 11/28/24 09:49 Pulse Ox 92 11/28/24 06:58 O2 Del Method Room Air 11/28/24 06:58 BMI result Body Mass Index 17.4 Gen: in no acute distress, thin with muscle wasting HEENT: sclera anicteric, moist mucus membranes Neck: supple Lungs: clear to auscultation bilaterally Heart: regular rate and rhythm, no murmurs Abd: soft, non-tender, non-distended Ext: no edema Skin: warm/well-perfused Neuro: alert and oriented x3, no focal findings Psych: appropriate affect Objective Data Active Medications Acetaminophen (Acetaminophen 325 Mg Tablet) 650 mg PO Q6H PRN PRN Reason: Pain, Mild 1-3,fever,headache Last Admin: 11/28/24 00:02 Dose: 650 mg Documented By: IGOR Albuterol Sulfate (Albuterol Sulfate 90 Mcg 8 Gm Inhaler) 2 puff INHALE Q6H PRN PRN Reason: shortness of breath or wheezing Albuterol/Ipratropium (Albuterol/Iprat 2.5/0.5mg 3 Ml Ampul.Neb) 3 ml INHALE Q4H PRN PRN Reason: Shortness of Breath/Wheezing Bisacodyl (Bisacodyl 10 Mg Supp.Rect) 10 mg [place] BEDTIME PRN PRN Reason: Constipation Calcium Carbonate (Calcium Carbonate 750 Mg Tab.Chew) 750 mg PO Q4H PRN PRN Reason: Heartburn Clonazepam (Clonazepam 0.5 Mg Tablet) 0.5 mg PO BID PRN PRN Reason: Anxiety Last Admin: 11/28/24 07:47 Dose: 0.5 mg Documented By: CAMILLE Clonazepam (Clonazepam 1 Mg Tablet) 1 mg PO BEDTIME PRN PRN Reason: Anxiety Last Admin: 11/26/24 19:48 Dose: 1 mg Documented By: NARCISA Cyclobenzaprine HCl (Cyclobenzaprine Hcl 5 Mg Tablet) 5 mg PO TID PRN PRN Reason: Muscle Spasm Last Admin: 11/28/24 07:48 Dose: 5 mg Documented By: CAMILLE Duloxetine HCl (Duloxetine Hcl 30 Mg Capsule.Dr) 30 mg PO BID [facility] Last Admin: 11/28/24 07:47 Dose: 30 mg Documented By: CAMILLE Fluticasone Propionate (Fluticasone Propionate Nasal 16 Gm [place]) 2 spray NOSTRIL-B DAILY PRN PRN Reason: for allergies Hydralazine HCl (Hydralazine Hcl 20 Mg/Ml Vial) 10 mg IVPUSH Q6H PRN; Protocol PRN Reason: SBP > 160 Last Admin: 11/28/24 00:00 Dose: 10 mg Documented By: IGOR Hydralazine HCl (Hydralazine Hcl 25 Mg Tablet) 25 mg PO TID [facility]; Protocol Last Admin: 11/28/24 07:47 Dose: 25 mg Documented By: CAMILLE Sodium Bicarbonate 50 meq/ (Dextrose) 1,000 mls @ 75 mls/hr IV .[id number] [facility] On Hold: 11/26/24 12:18 Last Infusion: 11/26/24 12:51 Dose: Infused Documented By: ADELINA Lamotrigine (Lamotrigine 100 Mg Tablet) 150 mg PO DAILY [facility] Last Admin: 11/28/24 07:46 Dose: 150 mg Documented By: CAMILLE Lidocaine (Lidocaine 4 % Patch Adh..Patch) 1 patch TRANSDERMA DAILY [facility]; Protocol Last Admin: 11/28/24 07:50 Dose: 1 patch Documented By: CAMILLE Magnesium Hydroxide (Milk Of Magnesia 30 Ml Oral.Susp) 30 ml PO DAILY PRN PRN Reason: Constipation Last Admin: 11/26/24 09:05 Dose: 30 ml Documented By: ADELINA Melatonin (Melatonin 3 Mg Tablet) 6 mg PO BEDTIME PRN PRN Reason: Insomnia Memantine (Memantine Hcl 5 Mg Tablet) 5 mg PO BID [facility] Last Admin: 11/28/24 07:46 Dose: 5 mg Documented By: CAMILLE Metoclopramide HCl (Metoclopramide Hcl 10 Mg/2 Ml Vial) 5 mg IVPUSH Q4H PRN PRN Reason: N/V unrelieved by Saul Last Admin: 11/27/24 18:39 Dose: 5 mg Documented By: ARNIE Multivitamins/Vitamin C (Multivitamin Tablet) 1 tab PO DAILY [facility] Last Admin: 11/28/24 07:47 Dose: 1 tab Documented By: CAMILLE Nitroglycerin (Nitroglycerin 0.4 Mg Tab.Subl) 0.4 mg SUBLINGUAL Q5MX3 PRN PRN Reason: Chest Pain Last Admin: 11/28/24 01:51 Dose: 0.4 1000units Documented By: IGOR Non-Formulary Medication (Simvastatin) 20 mg PO BEDTIME [facility] Ondansetron HCl (Ondansetron Hcl 4 Mg/2 Ml Vial) 4 mg IVPUSH Q4H PRN PRN Reason: Nausea and Vomiting Oxycodone HCl (Oxycodone Hcl Immed Release 5 Mg Tablet) 5 mg PO Q6H PRN PRN Reason: Pain, Severe (Pain Scale 7-10) Last Admin: 11/27/24 15:56 Dose: 5 mg Documented By: ARNIE Polyethylene Glycol (Polyethylene Glycol 3350 17 Gm Powd.Pack) 17 gm PO DAILY [facility] Last Admin: 11/28/24 07:53 Dose: Not Given Documented By: CAMILLE Non-Admin Reason: Patient Refused Comments: patient report liquid stools Senna (Sennosides 8.6 Mg Tablet) 17.2 mg PO BEDTIME [facility] Last Admin: 11/27/24 20:09 Dose: 17.2 mg Documented By: IGOR Sertraline HCl (Sertraline Hcl 50 Mg Tablet) 50 mg PO DAILY [facility] Last Admin: 11/28/24 07:47 Dose: 50 mg Documented By: CAMILLE Sodium Chloride (0.9 % Sodium Chloride Flush 3 Ml Syringe) 3 ml IVFLUSH QSTXFT [facility] Last Admin: 11/28/24 07:49 Dose: 3 ml Documented By: CAMILLE Sodium Chloride (0.9 % Sodium Chloride Flush 3 Ml Syringe) 3 ml IVFLUSH QSHIFT [facility] Last Admin: 11/28/24 07:55 Dose: Not Given Documented By: CMAILLE Non-Admin Reason: Duplicate Order Trazodone HCl (Trazodone Hcl 100 Mg Tablet) 100 mg PO BEDTIME [facility] Last Admin: 11/27/24 20:09 Dose: 100 mg Documented By: IGOR Vitamin D (Cholecalciferol (Vitamin D3) 25 Mcg Tablet) 25 mcg PO DAILY [facility] Last Admin: 11/28/24 07:47 Dose: 25 mcg Documented By: CAMILLE Labs 11/28/24 06:32 11/28/24 06:32 Labs: Laboratory Results - last 24 hr 11/25/24 11/28/24 09:37 06:32 MCV 90.1 MCH 30.6 MCHC 34.0 RDW 14.8 Plt Count 149 L MPV 10.3 Absolute Nucleated RBC 0.000 Nucleated RBC % (auto) 0.0 Smear Path Review SEE NOTE Anion Gap 17 Estim Creat Clear Calc 4.7 Estimated GFR 5 Random Glucose 109 Haptoglobin 101 Calcium 8.5 Phosphorus 6.7 H Erythropoietin 6.0 Total Bilirubin 0.4 Direct Bilirubin 0.1 AST 19 ALT 20 Alkaline Phosphatase 71 Lactate Dehydrogenase 196 Total Protein 5.4 L Albumin 3.7 Assessment and Plan (1) Acute renal failure: Status: Acute Plan d4, 79yo F with HLD, HTN, [place] I for PUD, EtOH abuse in remission since 2007, mood disorder, eearly dementia, PAD, TIA on DAPT, seizure disorder, sent in by keying machine operator due to worsening renal function and anemia found to have suspicious RUL lesion RONY acute metabolic acidosis - discussed with Dr Guidry, concern for atypical TMA with anemia/mild thrombocytopenia, serologic workup to date negative, ADAMTS-13 pending, hold DAPT for renal biopsy 11/29 and will need DDAVP just prior to biopsy, renal duplex done, no MRI brain given spinal stimulator - stopped bicarbonate infusion RUL spiculated lesion, 2.2 cm [with tubular punctate nodules in both lungs] - discussed with patient and her daughter Abby, deciding re: biopsy, Heme-Onc consult, question of whether this is the cause of the RONY through a paraneoplastic syndrome such as TMA or glomerulopathy hyperK - resolved after bicarbonate acute anemia - suspect related to renal disease - peripheral smear: Pancytopenia: Normocytic and normochromic anemia with occasional Riri cells: consider anemia of chronic disease vs blood loss vs other etiologies.Leukopenia and thrombocytopenia: smear not diagnostic of etiology. - FOBT positive, continue PPI, GI consulted, no scope indicated - transfused 2u PRBCs with appropriate response - ADAMTS-13 pending as above moderate protein-calorie malnutrition - supplements seizure disorder - lamotrigine mood disorder - sertraline dementia - memantine hx TIA - hold DAPT for renal biopsy VTE ppx - SCDs dispo - TBD In my clinical judgment, the patient requires continued inpatient hospitalization for the following reasons: RONY, anemia Total time managing care of this patient today: 45 minutes. Quality Stroke Does the patient have a stroke diagnosis?: No Reason for No Anti-thrombotic by Day Two: Contraindicated (acute anemia ) VTE Prior VTE?: Yes VTE Risk Level:: Medical - moderate - high VTE Device Contraindication: N/A - Device Ordered VTE Drug Contraindication: Treatment Not Tolerated
--- NOTE | 2024-11-28 11:23 | PM.HEMONCCN ---
Subjective - Subjective Chief complaint: Weakness, weight loss Patient: new to practice Consult date: 11/28/24 Primary Care Provider: Espinoza Santiago MD Hot [employer] Feeder Utilized?: No - Bengali Speaking HPI - Consult Narrative Reason for consult: Lung mass, cytopenias?TMA Narrative: Cary Davis is a 79 year old female with multiple medical problems including prior history of gastrectomy for peptic ulcer disease, depression/anxiety, asthma, TIA, Alzheimer's disease who presented to ER because of worsening kidney functions. She was told by her PCP to go to ER because of significant decline in renal function. She had a colonoscopy in August 2024 at [facility] and apparently she was not told of abnormal labs at that time. Her last serum creatinine in January 2024 was normal at 0.71. On presentation she also was profoundly anemic with a hemoglobin of 6.9 gram/dL. She received 2 units blood transfusion. Patient has been reporting decrease in urinary output even though she was drinking lot of water. She did not experience any shortness of breath, orthopnea, leg swelling. She does report weight loss. She quit smoking in 1987. On presentation she had mild pancytopenia with WBC count of 3.5 and platelet count of 125. Her kidney functions have been deteriorating since September 2024. She denies any changes to her medications as outpatient. No recent treatment for infections. She denies any other complaints such as headache, dizziness or falls. She has had loss of appetite and weight loss. There is no family history of cancer. She has 1 daughter. Her only son . She lives alone. Review of Systems - Constitutional Reports as per HPI, Reports fatigue, Reports poor appetite, Reports weight loss - Cardiovascular Reports no additional cardiovascular complaints - Respiratory Reports no additional respiratory complaints - Gastrointestinal Reports no additional gastrointestinal complaints - Neurologic Reports no additional neurologic complaints, Reports as per HPI [facility] Medical History: Medical History (Last Reviewed 11/26/24 @ 01:41 by Amelia Montalvo RN) Alcoholism in remission Alzheimer's dementia Anemia Anxiety Arthritis Asthma Ataxia Benign essential hypertension Complex partial seizures Degenerative disease of nervous system, unspecified Dementia Depression DVT (deep venous thrombosis) Exertional dyspnea Gait abnormality Insomnia Multifactorial gait disorder Neuropathy Osteoporosis Partial symptomatic epilepsy with complex partial seizures, not intractable, without status epilepticus Peripheral arterial disease Peripheral neuropathy Pure hypercholesterolemia Seizure TIA (transient ischemic attack) Unsteady gait Vitamin D deficiency Functional capacity: independent ambulation Family History: Family History (Last Reviewed 11/25/24 @ 02:07 by ROLANDO Rico) Father CVD (cardiovascular disease) Heart disease Hypertension Stroke Mother CVD (cardiovascular disease) Heart disease Asthma Maternal Grandmother No problems noted. Maternal Grandfather No problems noted. Paternal Grandmother No problems noted. Paternal Grandfather No problems noted. Maternal Aunt Tongue cancer Surgical History: Surgical History (Last Reviewed 11/26/24 @ 01:41 by Amelia Montalvo RN) H/O colonoscopy History of angioplasty History of cataract surgery History of cholecystectomy History of esophagogastroduodenoscopy (EGD) History of hysterectomy History of partial gastrectomy History of tubal ligation Hx of foot surgery Hx of nasal septoplasty S/P excision of neuroma Status post insertion of nerve stimulator Social History: Social History (Last Reviewed 11/25/24 @ 02:07 by ROLANDO Rico) Living Situation History: Household Members: None Housing: Apartment Housing Other:: senior housing Are you a primary care asst to a significant other at home: No Do you presently have visiting nurse or other home services: No Tobacco History: Patient Tobacco Use Status: Former Tobacco user e-Cigarette/Vaping Use: Never Used Second Hand Smoke Exposure: No Advance Directives: Advance Directives Date on File: 06/12/21 Occupation Assessmet: service: No Current occupational status: retired Current occupational exposures/hazards: No - Travel History Ebola Risk: Travel/Contact With Anyone From Affected Area/s: No Has Patient Experienced Ebola Symptoms: No Home Medications and Allergies Current Medications: Current Medications Acetaminophen (Acetaminophen 325 Mg Tablet) 650 mg PO Q6H PRN PRN Reason: Pain, Mild 1-3,fever,headache Last Admin: 11/28/24 00:02 Dose: 650 mg Albuterol Sulfate (Albuterol Sulfate 90 Mcg 8 Gm Inhaler) 2 puff INHALE Q6H PRN PRN Reason: shortness of breath or wheezing Albuterol/Ipratropium (Albuterol/Iprat 2.5/0.5mg 3 Ml Ampul.Neb) 3 ml INHALE Q4H PRN PRN Reason: Shortness of Breath/Wheezing Bisacodyl (Bisacodyl 10 Mg Supp.Rect) 10 mg [place] BEDTIME PRN PRN Reason: Constipation Calcium Carbonate (Calcium Carbonate 750 Mg Tab.Chew) 750 mg PO Q4H PRN PRN Reason: Heartburn Clonazepam (Clonazepam 0.5 Mg Tablet) 0.5 mg PO BID PRN PRN Reason: Anxiety Last Admin: 11/28/24 07:47 Dose: 0.5 mg Clonazepam (Clonazepam 1 Mg Tablet) 1 mg PO BEDTIME PRN PRN Reason: Anxiety Last Admin: 11/26/24 19:48 Dose: 1 mg Duloxetine HCl (Duloxetine Hcl 30 Mg Capsule.Dr) 30 mg PO BID [facility] Last Admin: 11/28/24 07:47 Dose: 30 mg Fluticasone Propionate (Fluticasone Propionate Nasal 16 Gm [place]) 2 spray NOSTRIL-B DAILY PRN PRN Reason: for allergies Hydralazine HCl (Hydralazine Hcl 20 Mg/Ml Vial) 10 mg IVPUSH Q6H PRN; Protocol PRN Reason: SBP > 160 Last Admin: 11/28/24 09:57 Dose: 10 mg Hydralazine HCl (Hydralazine Hcl 25 Mg Tablet) 75 mg PO TID [facility]; Protocol Desmopressin Acetate 14.6 mcg/ (Sodium Chloride) 53.65 mls @ 99.969 mls/hr IV ONCE ONE Stop: 11/29/24 08:32 Lamotrigine (Lamotrigine 100 Mg Tablet) 150 mg PO DAILY [facility] Last Admin: 11/28/24 07:46 Dose: 150 mg Lidocaine (Lidocaine 4 % Patch Adh..Patch) 1 patch TRANSDERMA DAILY [facility]; Protocol Last Admin: 11/28/24 07:50 Dose: 1 patch Magnesium Hydroxide (Milk Of Magnesia 30 Ml Oral.Susp) 30 ml PO DAILY PRN PRN Reason: Constipation Last Admin: 11/26/24 09:05 Dose: 30 ml Melatonin (Melatonin 3 Mg Tablet) 6 mg PO BEDTIME PRN PRN Reason: Insomnia Memantine (Memantine Hcl 5 Mg Tablet) 5 mg PO BID [facility] Last Admin: 11/28/24 07:46 Dose: 5 mg Metoclopramide HCl (Metoclopramide Hcl 10 Mg/2 Ml Vial) 5 mg IVPUSH Q4H PRN PRN Reason: N/V unrelieved by Saul Last Admin: 11/27/24 18:39 Dose: 5 mg Multivitamins/Vitamin C (Multivitamin Tablet) 1 tab PO DAILY [facility] Last Admin: 11/28/24 07:47 Dose: 1 tab Nitroglycerin (Nitroglycerin 0.4 Mg Tab.Subl) 0.4 mg SUBLINGUAL Q5MX3 PRN PRN Reason: Chest Pain Last Admin: 11/28/24 01:51 Dose: 0.4 1000units Non-Formulary Medication (Simvastatin) 20 mg PO BEDTIME [facility] Ondansetron HCl (Ondansetron Hcl 4 Mg/2 Ml Vial) 4 mg IVPUSH Q4H PRN PRN Reason: Nausea and Vomiting Oxycodone HCl (Oxycodone Hcl Immed Release 5 Mg Tablet) 5 mg PO Q6H PRN PRN Reason: Pain, Severe (Pain Scale 7-10) Last Admin: 11/27/24 15:56 Dose: 5 mg Polyethylene Glycol (Polyethylene Glycol 3350 17 Gm Powd.Pack) 17 gm PO DAILY [facility] Last Admin: 11/28/24 07:53 Dose: Not Given Senna (Sennosides 8.6 Mg Tablet) 17.2 mg PO BEDTIME [facility] Last Admin: 11/27/24 20:09 Dose: 17.2 mg Sertraline HCl (Sertraline Hcl 50 Mg Tablet) 50 mg PO DAILY [facility] Last Admin: 11/28/24 07:47 Dose: 50 mg Sodium Chloride (0.9 % Sodium Chloride Flush 3 Ml Syringe) [facility] Last Admin: 11/28/24 07:49 Dose: 3 ml Sodium Chloride (0.9 % Sodium Chloride Flush 3 Ml Syringe) 3 ml IVFLUSH [facility] Last Admin: 11/28/24 07:55 Dose: Not Given Trazodone HCl (Trazodone Hcl 100 Mg Tablet) 100 mg PO BEDTIME [facility] Last Admin: 11/27/24 20:09 Dose: 100 mg Vitamin D (Cholecalciferol (Vitamin D3) 25 Mcg Tablet) 25 mcg PO DAILY [facility] Last Admin: 11/28/24 07:47 Dose: 25 mcg Home Medications ?Medication ?Instructions ?Recorded ?Confirmed ?Type lamotrigine 150 mg tablet 150 mg PO DAILY 11/25/24 11/25/24 History multivitamin 1 tab PO DAILY 11/25/24 11/25/24 History Allergies Allergy/AdvReac Type Severity Reaction Status Date / Time morphine (Morphine) Allergy Severe VOMITING/LONGORIA Verified 11/24/24 20:24 LLUCINATION S codeine (Codeine) Allergy Intermediate VOMITING/HALLUCINATIONS, Verified 11/24/24 20:24 nause/extended abdomen latex Allergy Unknown Unknown Verified 11/24/24 20:24 atorvastatin AdvReac Intermediate fever, Verified 11/24/24 20:24 chills, abd pain, numbness capsaicin (CAPSAICIN) AdvReac Intermediate BURNING Verified 11/24/24 20:24 bacitracin Allergy Intermediate redness Uncoded 11/24/24 20:24 and itching adhesives Allergy Mild rash Uncoded 11/24/24 20:24 Physical Exam Vital signs: Vital Signs Temp 97.8 F 11/28/24 06:58 Pulse 83 11/28/24 06:58 Resp 16 11/28/24 06:58 BP 166/72 H 11/28/24 09:49 Pulse Ox 92 11/28/24 06:58 O2 Del Method Room Air 11/28/24 06:58 Intake & Output 11/27/24 11/28/24 11/28/24 18:59 06:59 18:59 Intake Total 720 / 1520 800 / 1520 Output Total 350 / 1150 800 / 1150 Balance 370 / 370 0 / 370 Urine Output (Average ml/kg/hr) 0.60 1.37 Intake: Intake, Oral Amount 720 / 1520 800 / 1520 Output: Output, Urine Amount 350 / 1150 800 / 1150 Other: Meal Refused No NPO No Breakfast % Eaten 75% Lunch % Eaten 50% Number of Unmeasured Voids 2 Urine Bedside Commode Bathroom Urine Color Yellow Yellow Last Bowel Movement 11/26/24 Weight 48.8 kg Weight 48.8 kg - Constitutional Present: no acute distress - Routine HEENT Exam Head: Present: normal inspection Eye: Present: EOMI, PERRL - Routine Neck Exam Present: supple. Absent: lymphadenopathy - Routine Respiratory Exam Present: decreased breath sounds. Absent: accessory muscle use - Routine Cardiovascular Exam Cardiovascular: Present: S1, S2 - Routine Abdominal Exam Present: soft - Routine Extremities Exam Absent: calf tenderness, pedal edema - Routine Skin Exam Present: intact - Routine Neurological Exam Present: alert, oriented X3 Hem/Onc Consult Result - Labs CBC & Chem 7: 11/28/24 06:32 11/28/24 06:32 Labs: Short CBC 11/28/24 Range/Units 06:32 WBC 6.7 (4.8-10.8) X10*3/uL Hgb 10.5 L (12.0-16.0) g/dl Hct 30.9 L (37.0-47.0) % Plt Count 149 L (160-400) X10*3/uL BMP 11/28/24 06:32 Sodium 139 Potassium 4.5 Chloride 106 Carbon Dioxide 21 L BUN 87 H Creatinine 7.44 H* Calcium 8.5 Liver Function 11/28/24 Range/Units 06:32 Total Bilirubin 0.4 (0.0-1.0) mg/dL Direct Bilirubin 0.1 (0.0-0.5) mg/dL AST 19 (5-31) U/L ALT 20 (0-31) U/L Alkaline Phosphatase 71 (39-117) U/L Albumin 3.7 (3.5-5.0) g/dL Assessment and Plan Patient Active problem list reviewed?: Yes (1) Mass of right lung Status: Acute Assessment and plan: This is a 79-year-old woman with multiple medical problems as described above who is presenting with acute renal failure starting in September 2024. She had normal kidney functions in January 2024, she states that she underwent a colonoscopy in August 2024 at [facility] and says that she had labs done at that time and were reportedly normal. On 11/24/2024 she presented to the ED, she was found to have a hemoglobin of 6.9 gram/dL with platelet count of 125 and WBC count of 3.5. Her serum creatinine was 6.82. Calcium level was mildly decreased, LDH was normal, haptoglobin normal, total bilirubin was normal. Peripheral smear did not show schistocytes. She responded more than appropriately with just 2 units blood transfusion and her platelet counts are spontaneously improving, her leukopenia has resolved. There is no suspicion of TMA at this time. Incidentally, CT chest revealed a spiculated mass in the right upper lobe measuring 2.2 times 1.6 x 2.0 cm. There was no suspicious lymphadenopathy. CT abdomen revealed bilateral nephrolithiasis without hydronephrosis, nonspecific wall thickening of urinary bladder moderate stool burden and cardiomegaly. The lung mass is suspicious for malignancy. Unfortunately it is not amenable for CT-guided biopsy because of location. Agree with kidney biopsy to evaluate reason for renal failure. Lung cancer does not cause kidney failure as a paraneoplastic syndrome. Patients may develop acute renal failure in the setting of lung cancer such as small-cell lung cancerif there is extensive tumor lysis or they develop hypercalcemia as a paraneoplastic syndrome which she does not have. The lung mass can be addressed as outpatient. She will need surgical evaluation and PET scan. I thank you for the consultation. - Time Spent With Patient Time Spent with Patient (in minutes): 20
--- NOTE | 2024-11-28 11:45 | P.PNNP_ITS ---
Subjective Subjective Date of Service: 11/28/24 Interval history: Following for RONY on CKD. complaining of some muscle cramping. plan for renal biopsy through IR- per IR, aspirin and plavix need to be on hold x5 days before renal biospy can be done. Physical Exam 2 Vital Signs: Vital Signs: Last Vital Signs Temp 97.8 F 11/28/24 15:34 Pulse 77 11/28/24 15:34 Resp 18 11/28/24 15:34 BP 138/61 11/28/24 15:34 Pulse Ox 94 11/28/24 15:34 O2 Del Method Room Air 11/28/24 15:34 BMI result Body Mass Index 17.4 Const: General: no acute distress, alert and awake Resp: Effort & Inspection: normal respiratory effort and able to speak in complete sentences Auscultation: clear to auscultation bilaterally Cardio: Rate: regular rate Rhythm: regular rhythm Heart sounds: S1 normal heart sound present and S2 normal heart sound present GI: Palpation (GI): Soft to palpation and nontender Skin: Rashes: no rashes Extrem: General: No edema Objective Data Labs 11/28/24 06:32 11/28/24 06:32 Labs: Laboratory Results - last 24 hr 11/25/24 11/25/24 11/28/24 09:36 09:37 01:58 WBC RBC Hgb Hct MCV MCH MCHC RDW Plt Count MPV Absolute Nucleated RBC Nucleated RBC % (auto) [id number] Activity Intrp 0.67 L Sodium Potassium Chloride Carbon Dioxide Anion Gap BUN Creatinine Estim Creat Clear Calc Estimated GFR Random Glucose Haptoglobin Calcium Phosphorus Erythropoietin 6.0 Total Bilirubin Direct Bilirubin AST ALT Alkaline Phosphatase Lactate Dehydrogenase Troponin I High Sens 16.5 D Total Protein Albumin 11/28/24 11/28/24 03:54 06:32 WBC 6.7 RBC 3.43 L Hgb 10.5 L Hct 30.9 L MCV 90.1 MCH 30.6 MCHC 34.0 RDW 14.8 Plt Count 149 L MPV 10.3 Absolute Nucleated RBC 0.000 Nucleated RBC % (auto) 0.0 [id number] Activity Intrp Sodium 139 Potassium 4.5 Chloride 106 Carbon Dioxide 21 L Anion Gap 17 BUN 87 H Creatinine 7.44 H* Estim Creat Clear Calc 4.7 Estimated GFR 5 Random Glucose 109 Haptoglobin 101 Calcium 8.5 Phosphorus 6.7 H Erythropoietin Total Bilirubin 0.4 Direct Bilirubin 0.1 AST 19 ALT 20 Alkaline Phosphatase 71 Lactate Dehydrogenase 196 Troponin I High Sens 15.7 Total Protein 5.4 L Albumin 3.7 Microbiology Microbiology Results: Microbiology 11/25/24 05:44 Urine clean catch - Clean Catch Midstream Urine Culture - Final 11/24/24 Unknown Urine clean catch - Clean Catch Midstream Urine Culture - Final No growth. Procedures Date of Service Date of Service: 11/28/24 Assessment & Plan Assessment and plan (1) RONY (acute kidney injury): Status: Acute Plan Patient with RONY of unknown etiology. Needs renal biopsy duy, ordered. Per IR, needs aspirin and plavix on hold for 5 days before renal biopsy will be done. CT without obstruction Thrombotic angiopathy on differential- atypical HUS given anemia and low platelets; normal LDH and haptoglobin so not typical HUS. peripheral smear without schistocytes, does not rule out atypical HUS. complements normal, will repeat. serum immunofixation unremarkable, will repeat. VIRAL negative. ANCA negative. No proteinuria, +wbcs in urine. hydralazine dose increased for tight BP control for renal biopsy. Patient will need DDAVP prior to biopsy to reduce bleeding risk. Added gabapentin for muscle cramping. Will continue to monitor for uremic symptoms. encourage oral hydration regular blood pressure checks, close I&O monitoring. avoid nephrotoxins continue supportive care Discussed with Dr Ramirez Time Spent With Patient Time: Total time managing care of this patient today ____ minutes. Progress Note: Quality Stroke Does the patient have a stroke diagnosis?: No Reason for No Anti-thrombotic by Day Two: Contraindicated (acute anemia )
[2024-11-29] VITALS (18 sets, daily range): BP systolic 106–200; BP diastolic 53–96; PULSE 68–104; RESP 11–18; TEMP 36.3–36.7; O2SAT 93–100
[2024-11-29 06:55] LABS: Hematocrit 29.9 % (37.0-47.0); Hemoglobin 10.1 g/dl (12.0-16.0); Mean Corpuscular HGB Conc 33.8 g/dl (31.0-35.0); Mean Corpuscular Hemoglobin 31.3 pg (27.0-33.0); Mean Corpuscular Volume 92.6 fL (80.0-98.0); NRBC Abs Auto 0.000 X10*3/uL (0.0-0.012); NRBC Pct Auto 0.0 /100WBC (0.0-0.2); Platelet Count 155 X10*3/uL (160-400); Red Blood Count 3.23 X10*6/uL (4.20-5.50); White Blood Count 6.0 X10*3/uL (4.8-10.8)
[2024-11-29 07:08] LABS: INTERNATIONAL NORM RATIO 0.9 (0.9-1.1); Prothrombin Time 10.8 SEC (10.9-12.4)
[2024-11-29 07:15] LABS: Anion Gap 18 (12-20); Blood Urea Nitrogen 89 mg/dL (9-16); Calcium 8.6 mg/dL (8.4-10.2); Carbon Dioxide 24 mmol/L (22-29); Chloride 106 mmol/L (96-108); Creatinine Clr Calc Pharmacy 4.4; Estimated Glomerular Filt Rate 5; Potassium 4.9 mmol/L (3.3-5.1); Sodium 143 mmol/L (135-145)
[2024-11-29] MEDS: DESMOPRESSIN ACETATE IV (08:39)
[2024-11-29] MEDS: SODIUM CHLORIDE 0.9% IV (08:39)
[2024-11-29] MEDS: 0.9 % Sodium Chloride Flush 3 ML SYRINGE IVFLUSH ×4 (08:39→23:07)
[2024-11-29] MEDS: Lidocaine 4 % Patch ADH..PATCH 1 PATCH TRANSDERMA ×2 (09:54→15:18)
--- NOTE | 2024-11-29 11:04 | MHC.CLN ---
F/U PT IS MODERATELY MALNOURISHED SEE FULL ASSESSMENT DATED 11/27/24 PT IS CURRENTLY NPO PREVIOUS PO INTAKE 25% WHEN DIET TO RESUME; RECOMMEND ADDING ENSURE CLEAR TID TO INCREASE KCALS SUPPLEMENT IS RENAL FRIENDLY AND WILL PROVIDE 720KCALS, 24G PROTEIN FOLLOWING FOR DIET ADVANCEMENT
[2024-11-29] MEDS: Lidocaine HCl 1 % MPF 30 ML VIAL 10 ML SUBCUT (11:36)
--- NOTE | 2024-11-29 11:59 | MHC.CM.PN ---
Per ROUNDS discussion, Patient is not yet medically cleared for dc (renal biopsy today); patient may benefit from a PT Eval to assist with disposition. CM will continue to follow.
--- NOTE | 2024-11-29 13:40 | P.PNIM_ITS ---
Subjective Subjective Date of Service: 11/29/24 Interval History: No acute issues overnight. Underwent CT guided Review of Systems Denies chest pain Denies shortness of breath Denies nausea vomiting diarrhea Denies fever chills Physical Exam 2 Vital Signs: Vital Signs: Last Vital Signs Temp 97.4 F 11/29/24 11:35 Pulse 88 11/29/24 11:35 Resp 18 11/29/24 11:35 BP 154/57 H 11/29/24 11:35 Pulse Ox 93 11/29/24 11:35 O2 Del Method Room Air 11/29/24 11:35 O2 Flow Rate 2 11/29/24 11:10 BMI result Body Mass Index 17.4 Const: Other: Awake alert no acute distress GI: Other: Soft nontender nondistended normoactive bowel sounds Extrem: Other: No edema bilaterally Objective Data Active Medications Acetaminophen (Acetaminophen 325 Mg Tablet) 650 mg PO Q6H PRN PRN Reason: Pain, Mild 1-3,fever,headache Last Admin: 11/28/24 00:02 Dose: 650 mg Documented By: IGOR Albuterol Sulfate (Albuterol Sulfate 90 Mcg 8 Gm Inhaler) 2 puff INHALE Q6H PRN PRN Reason: shortness of breath or wheezing Albuterol/Ipratropium (Albuterol/Iprat 2.5/0.5mg 3 Ml Ampul.Neb) 3 ml INHALE Q4H PRN PRN Reason: Shortness of Breath/Wheezing Bisacodyl (Bisacodyl 10 Mg Supp.Rect) 10 mg OK BEDTIME PRN PRN Reason: Constipation Calcium Carbonate (Calcium Carbonate 750 Mg Tab.Chew) 750 mg PO Q4H PRN PRN Reason: Heartburn Clonazepam (Clonazepam 0.5 Mg Tablet) 0.5 mg PO BID PRN PRN Reason: Anxiety Last Admin: 11/28/24 07:47 Dose: 0.5 mg Documented By: CAMILLE Clonazepam (Clonazepam 1 Mg Tablet) 1 mg PO BEDTIME PRN PRN Reason: Anxiety Last Admin: 11/26/24 19:48 Dose: 1 mg Documented By: NARCISA Duloxetine HCl (Duloxetine Hcl 30 Mg Capsule.Dr) 30 mg PO BID SYLVAIN Last Admin: 11/29/24 08:14 Dose: Not Given Documented By: CAMILLE Non-Admin Reason: NPO Fluticasone Propionate (Fluticasone Propionate Nasal 16 Gm [place]) 2 spray NOSTRIL-B DAILY PRN PRN Reason: for allergies Gabapentin (Gabapentin 100 Mg Capsule) 100 mg PO BID FOR[facility]LY [facility], [facility]1983 Last Admin: 11/29/24 08:14 Dose: Not Given Documented By: CAMILLE Non-Admin Reason: NPO Hydralazine HCl (Hydralazine Hcl 20 Mg/Ml Vial) 10 mg IVPUSH Q6H PRN; Protocol PRN Reason: SBP > 160 Last Admin: 11/29/24 09:54 Dose: 10 mg Documented By: CAMILLE Hydralazine HCl (Hydralazine Hcl 25 Mg Tablet) 75 mg PO TID [facility]LY [facility], [facility]1983; Protocol Last Admin: 11/29/24 08:14 Dose: Not Given Documented By: CAMILLE Non-Admin Reason: NPO Lamotrigine (Lamotrigine 100 Mg Tablet) 150 mg PO DAILY [facility], [facility]1983 Last Admin: 11/29/24 08:14 Dose: Not Given Documented By: CAMILLE Non-Admin Reason: NPO Lidocaine (Lidocaine 4 % Patch Adh..Patch) 1 patch TRANSDERMA DAILY [facility]LY [facility], [facility]1983; Protocol Last Admin: 11/29/24 09:54 Dose: 1 patch Documented By: CAMILLE Magnesium Hydroxide (Milk Of Magnesia 30 Ml Oral.Susp) 30 ml PO DAILY PRN PRN Reason: Constipation Last Admin: 11/26/24 09:05 Dose: 30 ml Documented By: INGEFADonald Melatonin (Melatonin 3 Mg Tablet) 6 mg PO BEDTIME PRN PRN Reason: Insomnia Memantine (Memantine Hcl 5 Mg Tablet) 5 mg PO BID [facility], [facility] Last Admin: 11/29/24 08:14 Dose: Not Given Documented By: CAMILLE Non-Admin Reason: NPO Metoclopramide HCl (Metoclopramide Hcl 10 Mg/2 Ml Vial) 5 mg IVPUSH Q4H PRN PRN Reason: N/V unrelieved by Saul Last Admin: 11/27/24 18:39 Dose: 5 mg Documented By: ARNIE Multivitamins/Vitamin C (Multivitamin Tablet) 1 tab PO DAILY [facility], [facility] Last Admin: 11/29/24 08:15 Dose: Not Given Documented By: CAMILLE Non-Admin Reason: NPO Nitroglycerin (Nitroglycerin 0.4 Mg Tab.Subl) 0.4 mg SUBLINGUAL Q5MX3 PRN PRN Reason: Chest Pain Last Admin: 11/28/24 01:51 Dose: 0.4 1000units Documented By: IGOR Ondansetron HCl (Ondansetron Hcl 4 Mg/2 Ml Vial) 4 mg IVPUSH Q4H PRN PRN Reason: Nausea and Vomiting Last Admin: 11/28/24 11:22 Dose: 4 mg Documented By: CAMILLE Oxycodone HCl (Oxycodone Hcl Immed Release 5 Mg Tablet) 5 mg PO Q6H PRN PRN Reason: Pain, Severe (Pain Scale 7-10) Last Admin: 11/27/24 15:56 Dose: 5 mg Documented By: ARNIE Polyethylene Glycol (Polyethylene Glycol 3350 17 Gm Powd.Pack) 17 gm PO DAILY [facility], [facility] Last Admin: 11/29/24 08:15 Dose: Not Given Documented By: CAMILLE Non-Admin Reason: NPO Pravastatin Sodium (Pravastatin Sodium 40 Mg Tablet) 40 mg PO BEDTIME [facility], [facility]1983 Senna (Sennosides 8.6 Mg Tablet) 17.2 mg PO BEDTIME [facility], [facility] Last Admin: 11/28/24 20:04 Dose: 17.2 mg Documented By: IGOR Sertraline HCl (Sertraline Hcl 50 Mg Tablet) 50 mg PO DAILY [facility], [facility] Last Admin: 11/29/24 08:15 Dose: Not Given Documented By: CAMILLE Non-Admin Reason: NPO Sevelamer Carbonate (Sevelamer Carbonate Tablet 800 Mg Tablet) 800 mg PO TIDWM [facility], [facility] Last Admin: 11/29/24 13:36 Dose: Not Given Documented By: CAMILLE Non-Admin Reason: NPO Sodium Chloride (0.9 % Sodium Chloride Flush 3 Ml Syringe) 3 ml IVFLUSH [facility] Last Admin: 11/29/24 08:39 Dose: 3 ml Documented By: CAMILLE Sodium Chloride (0.9 % Sodium Chloride Flush 3 Ml Syringe) [facility] Last Admin: 11/29/24 08:39 Dose: Not Given Documented By: CAMILLE Non-Admin Reason: Duplicate Order Trazodone HCl (Trazodone Hcl 100 Mg Tablet) 100 mg PO BEDTIME [facility] Last Admin: 11/28/24 20:04 Dose: 100 mg Documented By: IGOR Vitamin D (Cholecalciferol (Vitamin D3) 25 Mcg Tablet) 25 mcg PO DAILY [facility], [facility] Last Admin: 11/29/24 08:14 Dose: Not Given Documented By: CAMILLE Non-Admin Reason: NPO Labs 11/29/24 06:30 11/29/24 06:30 Labs: Laboratory Results - last 24 hr 11/25/24 11/29/24 09:36 06:30 MCV 92.6 MCH 31.3 MCHC 33.8 RDW 14.9 Plt Count 155 L MPV 10.4 Absolute Nucleated RBC 0.000 Nucleated RBC % (auto) 0.0 PT 10.8 L INR 0.9 [id number] Inhibitor TNP Anion Gap 18 Estim Creat Clear Calc 4.4 Estimated GFR 5 Random Glucose 88 Calcium 8.6 Phosphorus 8.6 H Assessment and Plan (1) Mass of right lung: Status: Acute (2) RONY (acute kidney injury): Status: Acute Plan 79yo F with HLD, HTN, [place] I for PUD, EtOH abuse in remission since 2007, mood disorder, eearly dementia, PAD, TIA on DAPT, seizure disorder, sent in by wrapper sizer due to worsening renal function and anemia; found to have suspicious RUL lesion 1.RUL spiculated lesion, 2.2 cm [with tubular punctate nodules in both lungs] - discussed with patient and her daughter Abby, deciding re: biopsy, Heme- Onc consult, question of whether this is the cause of the RONY through a paraneoplastic syndrome such as TMA or glomerulopathy 2.RONY -acute metabolic acidosis... Responded to volume - underwent successful CT-guided biopsy -await pathology; further treatment as per renal 3. Hyperkalemia - resolved after bicarbonate -follow renals/divalents 4.Acute anemia -likely renal mediated -good response to transfusion -follow daily CBC 5.Seizure disorder -stable and well compensated -continue current therapies 6.Hx TIA - hold DAPT for renal biopsy add back when clinically indicated Full code Pneumatics In my clinical judgment, the patient requires continued inpatient hospitalization for the following reasons: RONY, anemia Quality Stroke Does the patient have a stroke diagnosis?: No Reason for No Anti-thrombotic by Day Two: Contraindicated (acute anemia ) VTE Prior VTE?: Yes VTE Risk Level:: Medical - moderate - high VTE Device Contraindication: N/A - Device Ordered VTE Drug Contraindication: Treatment Not Tolerated
--- NOTE | 2024-11-29 14:01 | P.PNNP_ITS ---
Subjective Subjective Date of Service: 11/29/24 Interval history: Here with acute renal failure. plan for renal biopsy today. Physical Exam 2 Vital Signs: Vital Signs: Last Vital Signs Temp 97.4 F 11/29/24 11:35 Pulse 88 11/29/24 11:35 Resp 18 11/29/24 11:35 BP 154/57 H 11/29/24 11:35 Pulse Ox 93 11/29/24 11:35 O2 Del Method Room Air 11/29/24 11:35 O2 Flow Rate 2 11/29/24 11:10 BMI result Body Mass Index 17.4 Const: General: no acute distress, alert and awake Resp: Effort & Inspection: normal respiratory effort and able to speak in complete sentences Auscultation: clear to auscultation bilaterally Cardio: Rate: regular rate Rhythm: regular rhythm Heart sounds: S1 normal heart sound present and S2 normal heart sound present GI: Palpation (GI): Soft to palpation and nontender Skin: Rashes: no rashes Extrem: General: No edema Objective Data Labs 11/29/24 06:30 11/29/24 06:30 Labs: Laboratory Results - last 24 hr 11/25/24 11/29/24 09:36 06:30 WBC 6.0 RBC 3.23 L Hgb 10.1 L Hct 29.9 L MCV 92.6 MCH 31.3 MCHC 33.8 RDW 14.9 Plt Count 155 L MPV 10.4 Absolute Nucleated RBC 0.000 Nucleated RBC % (auto) 0.0 PT 10.8 L INR 0.9 [id number] Inhibitor TNP Sodium 143 Potassium 4.9 Chloride 106 Carbon Dioxide 24 Anion Gap 18 BUN 89 H Creatinine 7.88 H* Estim Creat Clear Calc 4.4 Estimated GFR 5 Random Glucose 88 Calcium 8.6 Phosphorus 8.6 H Microbiology Microbiology Results: Microbiology 11/25/24 05:44 Urine clean catch - Clean Catch Midstream Urine Culture - Final 11/24/24 Unknown Urine clean catch - Clean Catch Midstream Urine Culture - Final No growth. Procedures Date of Service Date of Service: 11/29/24 Assessment & Plan Assessment and plan (1) RONY (acute kidney injury): Status: Acute Plan Patient with RONY of unknown etiology. CT without obstruction renal biopsy today- requested this be sent [facility] to [facility] for evaluation. Thrombotic angiopathy on differential- atypical HUS given anemia and low platelets; normal LDH and haptoglobin so not typical HUS. peripheral smear without schistocytes, does not rule out atypical HUS. Cannot confirm diagnosis without biopsy results, so will hold off on eculizumab for now. However, given this may be a necessary treatment: meningococcal vaccine in preparation for potential need for eculizumab- formulation for older adults not on inpatient formulary. She will need antibiotic prophylaxis when starting eculizumab if biopsy suggests atypical HUS. complements normal, repeat pending. serum immunofixation unremarkable, repeat pending. VIRAL negative. ANCA negative. Veru mild proteinuria, +wbcs in urine. No blood in urine. Added gabapentin for muscle cramping. Will continue to monitor for uremic symptoms. encourage oral hydration regular blood pressure checks, close I&O monitoring. avoid nephrotoxins continue supportive care Discussed with Dr Ramirez Time Spent With Patient Time: Total time managing care of this patient today ____ minutes. Progress Note: Quality Stroke Does the patient have a stroke diagnosis?: No Reason for No Anti-thrombotic by Day Two: Contraindicated (acute anemia )
[2024-11-29] MEDS: Milk of Magnesia 30 ML ORAL.SUSP PO (17:44)
[2024-11-29] MEDS: Sevelamer Carbonate Tablet 800 MG TABLET PO (17:46)
[2024-11-30] VITALS (9 sets, daily range): BP systolic 146–170; BP diastolic 56–80; PULSE 16–83; RESP 16–76; TEMP 36–36.6; O2SAT 95–97
--- NOTE | 2024-11-30 01:56 | PC.NURSE ---
CARE ASSUMED 7PM...ALERT..ORIENTED X3..CONTINUES WITH BLOOD-TINGED URINE PER SHIFT REPORT POST-RENAL BIOPSY....NSR..RESPIRATIONS EASY..BP REMAINS ELEVATED...200/81....HS PO HYDRALAZINE GIVEN..PROVIDER UPDATED...BP REMAINED ELEVATED 180/80...PROVIDER UPDATED...NORVASC 5MG PO X1 DOSE GIVEN..BP DOWN TO 166/75..ASYMPTOMATIC..DENIES/OFFERS NO COMPLAINTS
[2024-11-30 05:42] LABS: Hematocrit 30.0 % (37.0-47.0); Hemoglobin 10.0 g/dl (12.0-16.0); Mean Corpuscular HGB Conc 33.3 g/dl (31.0-35.0); Mean Corpuscular Hemoglobin 30.1 pg (27.0-33.0); Mean Corpuscular Volume 90.4 fL (80.0-98.0); NRBC Abs Auto 0.000 X10*3/uL (0.0-0.012); NRBC Pct Auto 0.0 /100WBC (0.0-0.2); Platelet Count 161 X10*3/uL (160-400); Red Blood Count 3.32 X10*6/uL (4.20-5.50); White Blood Count 7.8 X10*3/uL (4.8-10.8)
[2024-11-30 06:12] LABS: Anion Gap 19 (12-20); Blood Urea Nitrogen 82 mg/dL (9-16); Calcium 8.7 mg/dL (8.4-10.2); Carbon Dioxide 19 mmol/L (22-29); Chloride 100 mmol/L (96-108); Creatinine Clr Calc Pharmacy 4.7; Estimated Glomerular Filt Rate 5; Potassium 3.8 mmol/L (3.3-5.1); Sodium 134 mmol/L (135-145)
[2024-11-30] MEDS: Sevelamer Carbonate Tablet 800 MG TABLET PO ×3 (09:01→16:48)
[2024-11-30] MEDS: Lidocaine 4 % Patch ADH..PATCH 1 PATCH TRANSDERMA (09:02)
[2024-11-30] MEDS: 0.9 % Sodium Chloride Flush 3 ML SYRINGE IVFLUSH ×5 (09:03→20:41)
--- NOTE | 2024-11-30 12:14 | P.PNNP_ITS ---
Subjective Subjective Date of Service: 11/30/24 Interval history: Here with acute renal failure. renal biopsy today. No tina hemturia since biospy yesterday. patient states just ongoing fatigue, no other new symptoms. Physical Exam 2 Vital Signs: Vital Signs: Last Vital Signs Temp 97.1 F 11/30/24 11:04 Pulse 78 11/30/24 11:04 Resp 18 11/30/24 11:04 BP 155/70 H 11/30/24 11:04 Pulse Ox 96 11/30/24 11:04 O2 Del Method Room Air 11/30/24 11:04 O2 Flow Rate 2 11/29/24 11:10 BMI result Body Mass Index 17.4 Const: General: no acute distress, alert and awake Resp: Effort & Inspection: normal respiratory effort and able to speak in complete sentences Auscultation: clear to auscultation bilaterally Cardio: Rate: regular rate Rhythm: regular rhythm Heart sounds: S1 normal heart sound present and S2 normal heart sound present GI: Palpation (GI): Soft to palpation and nontender Skin: Rashes: no rashes Extrem: General: No edema Objective Data Labs 11/30/24 05:26 11/30/24 05:26 Labs: Laboratory Results - last 24 hr 11/28/24 11/30/24 06:32 05:26 WBC 7.8 RBC 3.32 L Hgb 10.0 L Hct 30.0 L MCV 90.4 MCH 30.1 MCHC 33.3 RDW 14.7 Plt Count 161 MPV 10.6 Absolute Nucleated RBC 0.000 Nucleated RBC % (auto) 0.0 Sodium 134 L Potassium 3.8 D Chloride 100 Carbon Dioxide 19 L Anion Gap 19 BUN 82 H Creatinine 7.47 H* Estim Creat Clear Calc 4.7 Estimated GFR 5 Random Glucose 111 Calcium 8.7 Phosphorus 5.1 H Complement C3 101 Complement C4 23 Microbiology Microbiology Results: Microbiology 11/25/24 05:44 Urine clean catch - Clean Catch Midstream Urine Culture - Final 11/24/24 Unknown Urine clean catch - Clean Catch Midstream Urine Culture - Final No growth. Procedures Date of Service Date of Service: 11/30/24 Assessment & Plan Assessment and plan (1) RONY (acute kidney injury): Status: Acute Plan Patient with RONY of unknown etiology. CT without obstruction renal biopsy yesterday- no reports of tina hematuria. Thrombotic angiopathy on differential- atypical HUS given anemia and low platelets; normal LDH and haptoglobin so not typical HUS. peripheral smear without schistocytes, does not rule out atypical HUS. Cannot confirm diagnosis without biopsy results, so will hold off on eculizumab for now. complements normal, repeat pending. serum immunofixation unremarkable, repeat pending. VIRAL negative. ANCA negative. Very mild proteinuria, persistent +wbcs in urine. No blood in urine. patient is ok for discharge from a renal standpoint with plan for close follow up in [address] Hawkins, her primary varnisher apprentice. She should monitor for symptoms of uremia and return to the hospital if she has dramatic decrease in urine output, confusion/lethargy, nausea/vomiting, tremor, or other uremic symptoms. encourage oral hydration regular blood pressure checks, close I&O monitoring. avoid nephrotoxins continue supportive care Discussed with Dr Ramirez Time Spent With Patient Time: Total time managing care of this patient today ____ minutes. Progress Note: Quality Stroke Does the patient have a stroke diagnosis?: No Reason for No Anti-thrombotic by Day Two: Contraindicated (acute anemia )
--- NOTE | 2024-11-30 14:40 | P.PNIM_ITS ---
Subjective Subjective Date of Service: 11/30/24 Interval History: No acute issues overnight. No tina hematuria Review of Systems Denies chest pain Denies shortness of breath Denies nausea vomiting diarrhea Denies fever chills Physical Exam 2 Vital Signs: Vital Signs: Last Vital Signs Temp 97.1 F 11/30/24 11:04 Pulse 78 11/30/24 11:04 Resp 18 11/30/24 11:04 BP 155/70 H 11/30/24 11:04 Pulse Ox 96 11/30/24 11:04 O2 Del Method Room Air 11/30/24 11:04 O2 Flow Rate 2 11/29/24 11:10 BMI result Body Mass Index 17.4 Const: Other: Awake alert no acute distress GI: Other: Soft nontender nondistended normoactive bowel sounds Extrem: Other: No edema bilaterally Objective Data Active Medications Acetaminophen (Acetaminophen 325 Mg Tablet) 650 mg PO Q6H PRN PRN Reason: Pain, Mild 1-3,fever,headache Last Admin: 11/28/24 00:02 Dose: 650 mg Documented By: IGOR Albuterol Sulfate (Albuterol Sulfate 90 Mcg 8 Gm Inhaler) 2 puff INHALE Q6H PRN PRN Reason: shortness of breath or wheezing Albuterol/Ipratropium (Albuterol/Iprat 2.5/0.5mg 3 Ml Ampul.Neb) 3 ml INHALE Q4H PRN PRN Reason: Shortness of Breath/Wheezing Bisacodyl (Bisacodyl 10 Mg Supp.Rect) 10 mg [place] BEDTIME PRN PRN Reason: Constipation Calcium Carbonate (Calcium Carbonate 750 Mg Tab.Chew) 750 mg PO Q4H PRN PRN Reason: Heartburn Duloxetine HCl (Duloxetine Hcl 30 Mg Capsule.Dr) 30 mg PO BID [facility] Last Admin: 11/30/24 09:02 Dose: 30 mg Documented By: CLIFFORD Fluticasone Propionate (Fluticasone Propionate Nasal 16 Gm [place]) 2 spray NOSTRIL-B DAILY PRN PRN Reason: for allergies Gabapentin (Gabapentin 100 Mg Capsule) 100 mg PO BID [facility] Last Admin: 11/30/24 09:01 Dose: 100 mg Documented By: CLIFOFRD Hydralazine HCl (Hydralazine Hcl 20 Mg/Ml Vial) 10 mg IVPUSH Q6H PRN; Protocol PRN Reason: SBP > 160 Last Admin: 11/30/24 04:15 Dose: 10 mg Documented By: ZAIDA Hydralazine HCl (Hydralazine Hcl 25 Mg Tablet) 75 mg PO TID [facility]; Protocol Last Admin: 11/30/24 09:02 Dose: 75 mg Documented By: CLIFFORD Lamotrigine (Lamotrigine 100 Mg Tablet) 150 mg PO DAILY [facility] Last Admin: 11/30/24 09:02 Dose: 150 mg Documented By: CLIFFORD Lidocaine (Lidocaine 4 % Patch Adh..Patch) 1 patch TRANSDERMA DAILY [facility]; Protocol Last Admin: 11/30/24 09:02 Dose: 1 patch Documented By: CLIFFORD Magnesium Hydroxide (Milk Of Magnesia 30 Ml Oral.Susp) 30 ml PO DAILY PRN PRN Reason: Constipation Last Admin: 11/29/24 17:44 Dose: 30 ml Documented By: CAMILLE Melatonin (Melatonin 3 Mg Tablet) 6 mg PO BEDTIME PRN PRN Reason: Insomnia Memantine (Memantine Hcl 5 Mg Tablet) 5 mg PO BID [facility] Last Admin: 11/30/24 09:02 Dose: 5 mg Documented By: CLIFFORD Metoclopramide HCl (Metoclopramide Hcl 10 Mg/2 Ml Vial) 5 mg IVPUSH Q4H PRN PRN Reason: N/V unrelieved by Saul Last Admin: 11/27/24 18:39 Dose: 5 mg Documented By: ARNIE Multivitamins/Vitamin C (Multivitamin Tablet) 1 tab PO DAILY [facility] Last Admin: 11/30/24 09:02 Dose: 1 tab Documented By: CLIFFORD Nitroglycerin (Nitroglycerin 0.4 Mg Tab.Subl) 0.4 mg SUBLINGUAL Q5MX3 PRN PRN Reason: Chest Pain Last Admin: 11/28/24 01:51 Dose: 0.4 1000units Documented By: IGOR Ondansetron HCl (Ondansetron Hcl 4 Mg/2 Ml Vial) 4 mg IVPUSH Q4H PRN PRN Reason: Nausea and Vomiting Last Admin: 11/28/24 11:22 Dose: 4 mg Documented By: CAMILLE Oxycodone HCl (Oxycodone Hcl Immed Release 5 Mg Tablet) 5 mg PO Q6H PRN PRN Reason: Pain, Severe (Pain Scale 7-10) Last Admin: 11/27/24 15:56 Dose: 5 mg Documented By: ARNIE Polyethylene Glycol (Polyethylene Glycol 3350 17 Gm Powd.Pack) 17 gm PO DAILY [facility] Last Admin: 11/30/24 09:03 Dose: 17 gm Documented By: CLIFFORD Pravastatin Sodium (Pravastatin Sodium 40 Mg Tablet) 40 mg PO BEDTIME [facility] Last Admin: 11/29/24 20:13 Dose: 40 mg Documented By: TORY Senna (Sennosides 8.6 Mg Tablet) 17.2 mg PO BEDTIME [facility] Last Admin: 11/29/24 20:14 Dose: 17.2 mg Documented By: TORY Sertraline HCl (Sertraline Hcl 50 Mg Tablet) 50 mg PO DAILY [facility] Last Admin: 11/30/24 09:02 Dose: 50 mg Documented By: CLIFFORD Sevelamer Carbonate (Sevelamer Carbonate Tablet 800 Mg Tablet) 800 mg PO TIDWM [facility] Last Admin: 11/30/24 13:22 Dose: 800 mg Documented By: CLIFFORD Sodium Chloride (0.9 % Sodium Chloride Flush 3 Ml Syringe) 3 ml IVFLUSH [facility] Last Admin: 11/30/24 09:03 Dose: 3 ml Documented By: CLIFFORD Sodium Chloride (0.9 % Sodium Chloride Flush 3 Ml Syringe) [address] [facility] Last Admin: 11/30/24 09:03 Dose: 3 ml Documented By: CLIFFORD Trazodone HCl (Trazodone Hcl 100 Mg Tablet) 100 mg PO BEDTIME [facility] Last Admin: 11/29/24 20:13 Dose: 100 mg Documented By: TORY Vitamin D (Cholecalciferol (Vitamin D3) 25 Mcg Tablet) 25 mcg PO DAILY [facility] Last Admin: 11/30/24 09:02 Dose: 25 mcg Documented By: CLIFFORD Labs 11/30/24 05:26 11/30/24 05:26 Labs: Laboratory Results - last 24 hr 11/28/24 11/30/24 06:32 05:26 MCV 90.4 MCH 30.1 MCHC 33.3 RDW 14.7 Plt Count 161 MPV 10.6 Absolute Nucleated RBC 0.000 Nucleated RBC % (auto) 0.0 Anion Gap 19 Estim Creat Clear Calc 4.7 Estimated GFR 5 Random Glucose 111 Calcium 8.7 Phosphorus 5.1 H Complement C3 101 Complement C4 23 Assessment and Plan (1) RONY (acute kidney injury): Status: Acute (2) Mass of right lung: Status: Acute Plan 79yo F with HLD, HTN, Billroth I for PUD, EtOH abuse in remission since 2007, mood disorder, eearly dementia, PAD, TIA on DAPT, seizure disorder, sent in by information technology intern due to worsening renal function and anemia; found to have suspicious RUL lesion 1.RONY -acute metabolic acidosis... Responded to volume - underwent successful CT-guided biopsy -await pathology; further treatment as per renal 2..RUL spiculated lesion, 2.2 cm [with tubular punctate nodules in both lungs] - appreciate oncology input lung mass is suspicious for malignancy. Unfortunately it is not amenable for CT-guided biopsy because of location; agree with kidney biopsy to evaluate reason for renal failure. Lung cancer does not cause kidney failure as a paraneoplastic syndrome. lung mass can be addressed as outpatient. She will need surgical evaluation and PET scan. 3. Hyperkalemia - resolved after bicarbonate -follow renals/divalents 4.Acute anemia -likely renal mediated -good response to transfusion -follow daily CBC 5.Seizure disorder -stable and well compensated -continue current therapies 6.Hx TIA - hold DAPT for renal biopsy add back when clinically indicated Full code Pneumatics In my clinical judgment, the patient requires continued inpatient hospitalization for the following reasons: RONY, anemia Quality Stroke Does the patient have a stroke diagnosis?: No Reason for No Anti-thrombotic by Day Two: Contraindicated (acute anemia ) VTE Prior VTE?: Yes VTE Risk Level:: Medical - moderate - high VTE Device Contraindication: N/A - Device Ordered VTE Drug Contraindication: Treatment Not Tolerated
--- NOTE | 2024-11-30 15:08 | MHC.CM.PN ---
PT is recommending STR. CM met with Patient and she is agreeable to that plan and the initiation of a SNF search. CM spoke with MD and it appears appropriate to also discuss the dc plan with Daughter/HCP/Abby @ listed #(CM was not sure that Patient completely understood the conversation). Abby is also is in agreement with STR and a SNF search.CM will follow.
[2024-12-01] VITALS (8 sets, daily range): BP systolic 129–148; BP diastolic 58–69; PULSE 70–80; RESP 16–18; TEMP 36.1–37.4; O2SAT 93–97
[2024-12-01 07:01] LABS: MANUAL DIFF FLAG NO
[2024-12-01 07:06] LABS: Hematocrit 26.1 % (37.0-47.0); Hemoglobin 8.7 g/dl (12.0-16.0); Imm Gran Abs Auto 0.03 X10*3/uL (0.00-0.03); Imm Gran Pct Auto 0.5 % (0.0-0.4); Lymphocytes Absolute Auto 0.4 X10*3/uL (1.2-4.9); Mean Corpuscular HGB Conc 33.3 g/dl (31.0-35.0); Mean Corpuscular Hemoglobin 30.3 pg (27.0-33.0); Mean Corpuscular Volume 90.9 fL (80.0-98.0); NRBC Abs Auto 0.000 X10*3/uL (0.0-0.012); NRBC Pct Auto 0.0 /100WBC (0.0-0.2); Platelet Count 130 X10*3/uL (160-400); Red Blood Count 2.87 X10*6/uL (4.20-5.50); White Blood Count 6.1 X10*3/uL (4.8-10.8)
[2024-12-01 07:31] LABS: Alanine Aminotransferase 20 U/L (0-31); Albumin Level 3.7 g/dL (3.5-5.0); Alkaline Phosphatase 69 U/L (39-117); Anion Gap 18 (12-20); Aspartate Amino Transferase 28 U/L (5-31); Blood Urea Nitrogen 81 mg/dL (9-16); Calcium 8.1 mg/dL (8.4-10.2); Carbon Dioxide 20 mmol/L (22-29); Chloride 94 mmol/L (96-108); Creatinine Clr Calc Pharmacy 4.8; Estimated Glomerular Filt Rate 5; Potassium 4.2 mmol/L (3.3-5.1); Sodium 128 mmol/L (135-145); Total Protein 5.4 g/dL (6.5-8.0)
[2024-12-01 07:34] LABS: Uric Acid 4.4 mg/dL (2.4-5.7)
[2024-12-01 07:36] LABS: Parathyroid Hormone Intact 218.6 pg/mL (8.7-77.1)
[2024-12-01] MEDS: Lidocaine 4 % Patch ADH..PATCH 1 PATCH TRANSDERMA (08:54)
[2024-12-01] MEDS: 0.9 % Sodium Chloride Flush 3 ML SYRINGE IVFLUSH ×2 (08:55)
[2024-12-01] MEDS: Sevelamer Carbonate Tablet 800 MG TABLET PO (08:55)
--- NOTE | 2024-12-01 12:09 | PM.PNNEP ---
Subjective Subjective Date of Service: 12/01/24 Interval history: No acute issues overnight. No tina hematuria Physical Exam Vital Signs: Vital Signs: Last Vital Signs Temp 97.4 F 12/01/24 11:31 Pulse 77 12/01/24 11:31 Resp 18 12/01/24 11:31 BP 129/65 12/01/24 11:31 Pulse Ox 95 12/01/24 11:31 O2 Del Method Room Air 12/01/24 11:31 O2 Flow Rate 2 11/29/24 11:10 BMI result Body Mass Index 17.4 Const: Other: Awake alert no acute distress General: no acute distress, alert and awake Resp: Effort & Inspection: normal respiratory effort and able to speak in complete sentences Auscultation: clear to auscultation bilaterally Cardio: Rate: regular rate Rhythm: regular rhythm Heart sounds: S1 normal heart sound present and S2 normal heart sound present GI: Other: Soft nontender nondistended normoactive bowel sounds Palpation (GI): Soft to palpation and nontender Skin: Rashes: no rashes Extrem: Other: No edema bilaterally General: No edema Objective Data Labs 12/01/24 06:37 12/01/24 06:37 Labs: Laboratory Results - last 24 hr 12/01/24 06:37 WBC 6.1 RBC 2.87 L Hgb 8.7 L Hct 26.1 L MCV 90.9 MCH 30.3 MCHC 33.3 RDW 14.3 Plt Count 130 L MPV 10.2 Immature Gran % (Auto) 0.5 H Neut % (Auto) 83.8 H Lymph % (Auto) 6.7 L [place] % (Auto) 7.5 Eos % (Auto) 1.3 Baso % (Auto) 0.2 Lymph # (Auto) 0.4 L [place] # (Auto) 0.5 Eos # (Auto) 0.1 Baso # (Auto) 0.0 Abs Immat Gran (auto) 0.03 Absolute Neuts (auto) 5.2 Absolute Nucleated RBC 0.000 Nucleated RBC % (auto) 0.0 Sodium 128 L Potassium 4.2 Chloride 94 L Carbon Dioxide 20 L Anion Gap 18 BUN 81 H Creatinine 7.29 H* Estim Creat Clear Calc 4.8 Estimated GFR 5 Fasting Glucose 100 H Uric Acid 4.4 Calcium 8.1 L D Phosphorus 5.8 H Total Bilirubin 0.3 AST 28 ALT 20 Alkaline Phosphatase 69 Total Protein 5.4 L Albumin 3.7 25-OH Vitamin D Total 38.5 PTH Intact 218.6 H Microbiology Microbiology Results: Microbiology 11/25/24 05:44 Urine clean catch - Clean Catch Midstream Urine Culture - Final 11/24/24 Unknown Urine clean catch - Clean Catch Midstream Urine Culture - Final No growth. Procedures Date of Service Date of Service: 12/01/24 Assessment & Plan Assessment and plan (1) RONY (acute kidney injury): Status: Acute Plan Patient with RONY of unknown etiology. CT without obstruction renal biopsy yesterday- no reports of tina hematuria. Renal biopsy suggests oxalate nephropathy Patient given information on low oxalate foods May continue IVF as patient appears hypovolemic on bedside echo per Dr Ramirez encourage oral hydration. regular blood pressure checks, close I&O monitoring. avoid nephrotoxins continue supportive care Discussed with Dr Ramirez Time Spent With Patient Time: Total time managing care of this patient today ____ minutes. Progress Note: Quality Stroke Does the patient have a stroke diagnosis?: No Reason for No Anti-thrombotic by Day Two: Contraindicated (acute anemia )
--- NOTE | 2024-12-01 12:33 | MHC.CLN ---
F/U DIET ADVANCED TO REGULAR RECOMMEND 2GM NA LOW K+ DIET R/T RENAL FAILURE PREVIOUS PO INTAKE 25% NOTED SERUM NA 128 RECOMMEND ADDING MAGIC CUP TID TO INCREASE KCALS SUPPLEMENT WILL PROVIDE 870KCALS, 27G PROTEIN MONITOR PO INTAKE AND ENCOURAGE SUPPLEMENTS
--- NOTE | 2024-12-01 14:00 | P.PNIM_ITS ---
Subjective Subjective Date of Service: 12/01/24 Interval History: no pain after renal biopsy no N/V Review of Systems Review of Systems: Yes all other systems are reviewed and are negative Physical Exam 2 Vital Signs: Vital Signs: Last Vital Signs Temp 97.4 F 12/01/24 11:31 Pulse 77 12/01/24 11:31 Resp 18 12/01/24 11:31 BP 129/65 12/01/24 11:31 Pulse Ox 95 12/01/24 11:31 O2 Del Method Room Air 12/01/24 11:31 O2 Flow Rate 2 11/29/24 11:10 BMI result Body Mass Index 17.4 Gen: in no acute distress, thin with muscle wasting HEENT: sclera anicteric, moist mucus membranes Neck: supple Lungs: clear to auscultation bilaterally Heart: regular rate and rhythm, no murmurs Abd: soft, non-tender, non-distended Ext: no edema Skin: warm/well-perfused Neuro: alert and oriented x3, no focal findings Psych: appropriate affect Objective Data Active Medications Acetaminophen (Acetaminophen 325 Mg Tablet) 650 mg PO Q6H PRN PRN Reason: Pain, Mild 1-3,fever,headache Last Admin: 11/28/24 00:02 Dose: 650 mg Documented By: IGOR Albuterol Sulfate (Albuterol Sulfate 90 Mcg 8 Gm Inhaler) 2 puff INHALE Q6H PRN PRN Reason: shortness of breath or wheezing Albuterol/Ipratropium (Albuterol/Iprat 2.5/0.5mg 3 Ml Ampul.Neb) 3 ml INHALE Q4H PRN PRN Reason: Shortness of Breath/Wheezing Bisacodyl (Bisacodyl 10 Mg Supp.Rect) 10 mg [place] BEDTIME PRN PRN Reason: Constipation Calcium Acetate (Calcium Acetate 667 Mg Capsule) 667 mg PO TIDWM [facility] Last Admin: 12/01/24 12:37 Dose: 667 mg Documented By: CLIFFORD Calcium Carbonate (Calcium Carbonate 750 Mg Tab.Chew) 750 mg PO Q4H PRN PRN Reason: Heartburn Clonazepam (Clonazepam 0.5 Mg Tablet) 0.5 mg PO BID PRN PRN Reason: Anxiety Clonazepam (Clonazepam 1 Mg Tablet) 1 mg PO BEDTIME [facility] Last Admin: 12/01/24 09:05 Dose: 1 mg Documented By: CLIFFORD Clopidogrel Bisulfate (Clopidogrel Bisulfate 75 Mg Tablet) 75 mg PO DAILY [facility] Last Admin: 12/01/24 08:54 Dose: 75 mg Documented By: CLIFFORD Duloxetine HCl (Duloxetine Hcl 30 Mg Capsule.Dr) 30 mg PO BID [facility] Last Admin: 12/01/24 08:54 Dose: 30 mg Documented By: CLIFFORD Fluticasone Propionate (Fluticasone Propionate Nasal 16 Gm [place]) 2 spray NOSTRIL-B DAILY PRN PRN Reason: for allergies Gabapentin (Gabapentin 100 Mg Capsule) 100 mg PO BID [facility] Last Admin: 12/01/24 08:54 Dose: 100 mg Documented By: CLIFFORD Hydralazine HCl (Hydralazine Hcl 20 Mg/Ml Vial) 10 mg IVPUSH Q6H PRN; Protocol PRN Reason: SBP > 160 Last Admin: 11/30/24 04:15 Dose: 10 mg Documented By: ZAIDA Hydralazine HCl (Hydralazine Hcl 25 Mg Tablet) 75 mg PO TID [facility]; Protocol Last Admin: 12/01/24 08:54 Dose: 75 mg Documented By: CLIFFORD Sodium Chloride (Ns) 1,000 mls @ 50 mls/hr IVCONT .Q20H [facility] Last Admin: 12/01/24 08:56 Dose: 50 mls/hr Documented By: CLIFFORD Lamotrigine (Lamotrigine 100 Mg Tablet) 150 mg PO DAILY [facility] Last Admin: 12/01/24 08:54 Dose: 150 mg Documented By: CLIFFORD Lidocaine (Lidocaine 4 % Patch Adh..Patch) 1 patch TRANSDERMA DAILY [facility]; Protocol Last Admin: 12/01/24 08:54 Dose: 1 patch Documented By: CLIFFORD Magnesium Hydroxide (Milk Of Magnesia 30 Ml Oral.Susp) 30 ml PO DAILY PRN PRN Reason: Constipation Last Admin: 11/29/24 17:44 Dose: 30 ml Documented By: CAMILLE Melatonin (Melatonin 3 Mg Tablet) 6 mg PO BEDTIME PRN PRN Reason: Insomnia Memantine (Memantine Hcl 5 Mg Tablet) 5 mg PO BID [facility] Last Admin: 12/01/24 08:55 Dose: 5 mg Documented By: CLIFFORD Metoclopramide HCl (Metoclopramide Hcl 10 Mg/2 Ml Vial) 5 mg IVPUSH Q4H PRN PRN Reason: N/V unrelieved by Saul Last Admin: 11/27/24 18:39 Dose: 5 mg Documented By: ARNIE Multivitamins/Vitamin C (Multivitamin Tablet) 1 tab PO DAILY [facility] Last Admin: 12/01/24 08:54 Dose: 1 tab Documented By: CLIFFORD Nitroglycerin (Nitroglycerin 0.4 Mg Tab.Subl) 0.4 mg SUBLINGUAL Q5MX3 PRN PRN Reason: Chest Pain Last Admin: 11/28/24 01:51 Dose: 0.4 1000units Documented By: IGOR Ondansetron HCl (Ondansetron Hcl 4 Mg/2 Ml Vial) 4 mg IVPUSH Q4H PRN PRN Reason: Nausea and Vomiting Last Admin: 11/28/24 11:22 Dose: 4 mg Documented By: CAMILLE Polyethylene Glycol (Polyethylene Glycol 3350 17 Gm Powd.Pack) 17 gm PO DAILY [facility] Last Admin: 12/01/24 08:55 Dose: 17 gm Documented By: CLIFFORD Pravastatin Sodium (Pravastatin Sodium 40 Mg Tablet) 40 mg PO BEDTIME [facility] Last Admin: 11/30/24 20:33 Dose: 40 mg Documented By: MALAIKA Pyridoxine HCl (Pyridoxine Hcl (Vitamin B6) 50 Mg Tablet) 50 mg PO DAILY [facility] Last Admin: 12/01/24 08:54 Dose: 50 mg Documented By: CLIFFORD Senna (Sennosides 8.6 Mg Tablet) 17.2 mg PO BEDTIME [facility] Last Admin: 11/30/24 20:32 Dose: 17.2 mg Documented By: MALAIKA Sertraline HCl (Sertraline Hcl 50 Mg Tablet) 50 mg PO DAILY [facility] Last Admin: 12/01/24 08:55 Dose: 50 mg Documented By: CLIFFORD Sodium Chloride (0.9 % Sodium Chloride Flush 3 Ml Syringe) 3 ml IVFLUSH QSHIFT [facility] Last Admin: 12/01/24 08:55 Dose: 3 ml Documented By: HO.KINGKAI Sodium Chloride (0.9 % Sodium Chloride Flush 3 Ml Syringe) 3 ml IVFLUSH QSHIFT [facility] Last Admin: 12/01/24 08:55 Dose: 3 ml Documented By: CLIFFORD Trazodone HCl (Trazodone Hcl 100 Mg Tablet) 100 mg PO BEDTIME [facility] Last Admin: 11/30/24 20:33 Dose: 100 mg Documented By: MALAIKA Vitamin D (Cholecalciferol (Vitamin D3) 25 Mcg Tablet) 25 mcg PO DAILY [facility] Last Admin: 12/01/24 08:54 Dose: 25 mcg Documented By: CLIFFORD Labs 12/01/24 06:37 12/01/24 06:37 Labs: Laboratory Results - last 24 hr 12/01/24 06:37 MCV 90.9 MCH 30.3 MCHC 33.3 RDW 14.3 Plt Count 130 L MPV 10.2 Immature Gran % (Auto) 0.5 H Neut % (Auto) 83.8 H Lymph % (Auto) 6.7 L [place] % (Auto) 7.5 Eos % (Auto) 1.3 Baso % (Auto) 0.2 Lymph # (Auto) 0.4 L [place] # (Auto) 0.5 Eos # (Auto) 0.1 Baso # (Auto) 0.0 Abs Immat Gran (auto) 0.03 Absolute Neuts (auto) 5.2 Absolute Nucleated RBC 0.000 Nucleated RBC % (auto) 0.0 Anion Gap 18 Estim Creat Clear Calc 4.8 Estimated GFR 5 Fasting Glucose 100 H Uric Acid 4.4 Calcium 8.1 L D Phosphorus 5.8 H Total Bilirubin 0.3 AST 28 ALT 20 Alkaline Phosphatase 69 Total Protein 5.4 L Albumin 3.7 25-OH Vitamin D Total 38.5 PTH Intact 218.6 H Assessment and Plan (1) RONY (acute kidney injury): Status: Acute (2) Mass of right lung: Status: Acute Plan d4, 79yo F with HLD, HTN, Billroth I for PUD, EtOH abuse in remission since 2007, mood disorder, eearly dementia, PAD, TIA on DAPT, seizure disorder, sent in by actuarial intern due to worsening renal function and anemia found to have suspicious RUL lesion RONY acute metabolic acidosis - s/p renal biopsy 11/29/24, initial pathology shows oxalate nephropathy, will start K citrate and pt educated on low-oxalate diet, will need close outpt Nephrology follow-up hypoNa - appears dry; will give IV NS 50 mL/hr and recheck Na tomorrow hyperPO4 - started Ca acetate RUL spiculated lesion, 2.2 cm [with tubular punctate nodules in both lungs] - Heme-Onc consulted, not amenable to CT-guided biopsy, will need outpt PET-CT and surgical evaluation hyperK - resolved after bicarbonate acute anemia, suspect related to renal disease - peripheral smear: Pancytopenia: Normocytic and normochromic anemia with occasional Riri cells: consider anemia of chronic disease vs blood loss vs other etiologies.Leukopenia and thrombocytopenia: smear not diagnostic of etiology. - FOBT positive, continue PPI, GI consulted, no scope indicated - transfused 2u PRBCs with appropriate response moderate protein-calorie malnutrition - supplements seizure disorder - lamotrigine mood disorder - sertraline dementia - memantine hx TIA - held DAPT for renal biopsy VTE ppx - SCDs dispo - plan STR Total time managing care of this patient today: 45 minutes. Quality Stroke Does the patient have a stroke diagnosis?: No Reason for No Anti-thrombotic by Day Two: Contraindicated (acute anemia ) VTE Prior VTE?: Yes VTE Risk Level:: Medical - moderate - high VTE Device Contraindication: N/A - Device Ordered VTE Drug Contraindication: Treatment Not Tolerated
[2024-12-01] MEDS: Potassium Bicarbonate/Cit AC 25 MEQ TABLET.EFF PO (16:10)
--- NOTE | 2024-12-01 22:03 | PC.NURSE ---
Day shift RN reported that pt was coughing after taking medication with water. Pt is currently NPO due to high risk of aspiration. she is going to have ST evaluation tomorrow. Pt was able to swallow apple sauce without coughing. Pt stated that she wants to try taking medication in apple sauce. RN gave small medication with apple sauce, and she was able to swallow it without coughing/aspirating. Pt was eventually able to take all of her night time medication without any issues.
[2024-12-02] VITALS (9 sets, daily range): BP systolic 140–200; BP diastolic 62–87; PULSE 75–89; RESP 16–18; TEMP 36.2–37.2; O2SAT 92–96
[2024-12-02 06:32] LABS: Quantiferon TB Gold Plus 1 NEGATIVE (NEGATIVE); TB Test (QFT) Mitogen -Nil >10.00 IU/mL; TB Test (QFT) Nil 0.02 IU/mL; TB Test (QFT) Plus TB1 -Nil 0.01 IU/mL; TB Test (QFT) Plus TB2 -Nil 0.01 IU/mL
[2024-12-02 07:15] LABS: Hematocrit 25.9 % (37.0-47.0); Hemoglobin 8.7 g/dl (12.0-16.0); Mean Corpuscular HGB Conc 33.6 g/dl (31.0-35.0); Mean Corpuscular Hemoglobin 30.5 pg (27.0-33.0); Mean Corpuscular Volume 90.9 fL (80.0-98.0); NRBC Abs Auto 0.000 X10*3/uL (0.0-0.012); NRBC Pct Auto 0.0 /100WBC (0.0-0.2); Platelet Count 130 X10*3/uL (160-400); Red Blood Count 2.85 X10*6/uL (4.20-5.50); White Blood Count 4.2 X10*3/uL (4.8-10.8)
[2024-12-02 07:39] LABS: Anion Gap 15 (12-20); Blood Urea Nitrogen 73 mg/dL (9-16); Calcium 8.0 mg/dL (8.4-10.2); Carbon Dioxide 18 mmol/L (22-29); Chloride 98 mmol/L (96-108); Creatinine Clr Calc Pharmacy 5.1; Estimated Glomerular Filt Rate 6; Potassium 4.2 mmol/L (3.3-5.1); Sodium 127 mmol/L (135-145)
[2024-12-02] MEDS: Lidocaine 4 % Patch ADH..PATCH 1 PATCH TRANSDERMA (09:31)
--- NOTE | 2024-12-02 10:13 | MHC.CM.PN ---
CM MET WITH PT TO DISCUSS DC PLANNING, PT PLEASANTLY CONFUSED BUT AGREEABLE TO HOME OR STR CM CALLED PTS DAUGHTER, MICHAEL [phone] WHO UNDERSTANDS STR HAS BEEN RECOMMENDED, BUT SAYS SHE WAS UNAWARE PT COULD NOT HAVE THE PET SCAN WHILE THERE. SHE SAYS SHE FEELS HER MOTHER DID WELL WITH PT AND SHOULD DC HOME, SHE IS AGREEABLE TO [facility] FOR PT. [facility] HAS LIMITED PT AVAILABILITY, REFERRAL MADE TO [facility]. DAUGHTER WILL TRANSPORT AT DC
--- NOTE | 2024-12-02 11:47 | P.PNIM_ITS ---
Subjective Subjective Date of Service: 12/02/24 Interval History: coughing with eating no nausea Na 127 Review of Systems Review of Systems: Yes all other systems are reviewed and are negative Physical Exam 2 Vital Signs: Vital Signs: Last Vital Signs Temp 97.4 F 12/02/24 11:16 Pulse 89 12/02/24 11:16 Resp 18 12/02/24 11:16 BP 141/87 H 12/02/24 11:16 Pulse Ox 93 12/02/24 11:16 O2 Del Method Room Air 12/02/24 11:16 O2 Flow Rate 2 11/29/24 11:10 BMI result Body Mass Index 17.4 Gen: in no acute distress, thin with muscle wasting HEENT: sclera anicteric, moist mucus membranes Neck: supple Lungs: clear to auscultation bilaterally Heart: regular rate and rhythm, no murmurs Abd: soft, non-tender, non-distended Ext: no edema Skin: warm/well-perfused Neuro: alert and oriented x3, no focal findings Psych: appropriate affect Objective Data Active Medications Acetaminophen (Acetaminophen 325 Mg Tablet) 650 mg PO Q6H PRN PRN Reason: Pain, Mild 1-3,fever,headache Last Admin: 11/28/24 00:02 Dose: 650 mg Documented By: IGOR Albuterol Sulfate (Albuterol Sulfate 90 Mcg 8 Gm Inhaler) 2 puff INHALE Q6H PRN PRN Reason: shortness of breath or wheezing Albuterol/Ipratropium (Albuterol/Iprat 2.5/0.5mg 3 Ml Ampul.Neb) 3 ml INHALE Q4H PRN PRN Reason: Shortness of Breath/Wheezing Bisacodyl (Bisacodyl 10 Mg Supp.Rect) 10 mg NM BEDTIME PRN PRN Reason: Constipation Calcium Acetate (Calcium Acetate 667 Mg Capsule) 667 mg PO TIDWM SYLVAIN Last Admin: 12/02/24 09:21 Dose: 667 mg Documented By: JUAN Calcium Carbonate (Calcium Carbonate 750 Mg Tab.Chew) 750 mg PO Q4H PRN PRN Reason: Heartburn Clonazepam (Clonazepam 0.5 Mg Tablet) 0.5 mg PO BID PRN PRN Reason: Anxiety Last Admin: 12/01/24 16:18 Dose: 0.5 mg Documented By: CLIFFORD Clonazepam (Clonazepam 1 Mg Tablet) 1 mg PO BEDTIME [facility] Last Admin: 12/01/24 21:37 Dose: 1 mg Documented By: HOLLY Clopidogrel Bisulfate (Clopidogrel Bisulfate 75 Mg Tablet) 75 mg PO DAILY [facility] Last Admin: 12/02/24 09:22 Dose: 75 mg Documented By: JUAN Duloxetine HCl (Duloxetine Hcl 30 Mg Capsule.Dr) 30 mg PO BID [facility] Last Admin: 12/02/24 09:47 Dose: Not Given Documented By: JUAN Non-Admin Reason: Physician Held Med Fluticasone Propionate (Fluticasone Propionate Nasal 16 Gm [place]) 2 spray NOSTRIL-B DAILY PRN PRN Reason: for allergies Gabapentin (Gabapentin 100 Mg Capsule) 100 mg PO BID [facility] Last Admin: 12/02/24 09:47 Dose: Not Given Documented By: JUAN Non-Admin Reason: Physician Held Med Hydralazine HCl (Hydralazine Hcl 20 Mg/Ml Vial) 10 mg IVPUSH Q6H PRN; Protocol PRN Reason: SBP > 160 Last Admin: 12/02/24 03:35 Dose: 10 mg Documented By: HOLLY Hydralazine HCl (Hydralazine Hcl 25 Mg Tablet) 75 mg PO TID [facility]; Protocol Last Admin: 12/02/24 09:21 Dose: 75 mg Documented By: JUAN Sodium Chloride (Ns) 1,000 mls @ 50 mls/hr IVCONT .Q20H [facility] Last Admin: 12/02/24 03:38 Dose: 50 mls/hr Documented By: HOLLY Lamotrigine (Lamotrigine 100 Mg Tablet) 150 mg PO DAILY [facility] Last Admin: 12/02/24 09:22 Dose: 150 mg Documented By: JUAN Lidocaine (Lidocaine 4 % Patch Adh..Patch) 1 patch TRANSDERMA DAILY [facility]; Protocol Last Admin: 12/02/24 09:31 Dose: 1 patch Documented By: JUAN Magnesium Hydroxide (Milk Of Magnesia 30 Ml Oral.Susp) 30 ml PO DAILY PRN PRN Reason: Constipation Last Admin: 11/29/24 17:44 Dose: 30 ml Documented By: CAMILLE Melatonin (Melatonin 3 Mg Tablet) 6 mg PO BEDTIME PRN PRN Reason: Insomnia Memantine (Memantine Hcl 5 Mg Tablet) 5 mg PO BID [facility] Last Admin: 12/02/24 09:22 Dose: 5 mg Documented By: JUAN Metoclopramide HCl (Metoclopramide Hcl 10 Mg/2 Ml Vial) 5 mg IVPUSH Q4H PRN PRN Reason: N/V unrelieved by Saul Last Admin: 11/27/24 18:39 Dose: 5 mg Documented By: ARNEI Multivitamins/Vitamin C (Multivitamin Tablet) 1 tab PO DAILY [facility] Last Admin: 12/02/24 09:47 Dose: Not Given Documented By: JUAN Non-Admin Reason: Physician Held Med Nitroglycerin (Nitroglycerin 0.4 Mg Tab.Subl) 0.4 mg SUBLINGUAL Q5MX3 PRN PRN Reason: Chest Pain Last Admin: 11/28/24 01:51 Dose: 0.4 1000units Documented By: IGOR Ondansetron HCl (Ondansetron Hcl 4 Mg/2 Ml Vial) 4 mg IVPUSH Q4H PRN PRN Reason: Nausea and Vomiting Last Admin: 11/28/24 11:22 Dose: 4 mg Documented By: CAMILLE Polyethylene Glycol (Polyethylene Glycol 3350 17 Gm Powd.Pack) 17 gm PO DAILY [facility] Last Admin: 12/02/24 09:39 Dose: Not Given Documented By: JUAN Non-Admin Reason: Physician Held Med Potassium Bicarbonate (Potassium Bicarbonate/Cit Ac 25 Meq Tablet.Eff) 25 meq PO DAILY [facility] Last Admin: 12/02/24 09:26 Dose: Not Given Documented By: JUAN Non-Admin Reason: NPO Pravastatin Sodium (Pravastatin Sodium 40 Mg Tablet) 40 mg PO BEDTIME [facility] Last Admin: 12/01/24 21:40 Dose: 40 mg Documented By: HOLLY Pyridoxine HCl (Pyridoxine Hcl (Vitamin B6) 50 Mg Tablet) 50 mg PO DAILY [facility] Last Admin: 12/02/24 09:22 Dose: 50 mg Documented By: JUAN Senna (Sennosides 8.6 Mg Tablet) 17.2 mg PO BEDTIME [facility] Last Admin: 12/01/24 21:41 Dose: 17.2 mg Documented By: HOLLY Sertraline HCl (Sertraline Hcl 50 Mg Tablet) 50 mg PO DAILY [facility] Last Admin: 12/02/24 09:22 Dose: 50 mg Documented By: JUAN Sodium Chloride (0.9 % Sodium Chloride Flush 3 Ml Syringe) 3 ml IVFLUSH QSHIFT [facility] Last Admin: 12/02/24 09:38 Dose: Not Given Documented By: JUAN Non-Admin Reason: IV Running Sodium Chloride (0.9 % Sodium Chloride Flush 3 Ml Syringe) [facility] Last Admin: 12/02/24 09:39 Dose: Not Given Documented By: JUAN Non-Admin Reason: IV Running Trazodone HCl (Trazodone Hcl 100 Mg Tablet) 100 mg PO BEDTIME [facility] Last Admin: 12/01/24 21:39 Dose: 100 mg Documented By: HOLLY Vitamin D (Cholecalciferol (Vitamin D3) 25 Mcg Tablet) 25 mcg PO DAILY [facility] Last Admin: 12/02/24 09:50 Dose: 25 mcg Documented By: JUAN Labs 12/02/24 06:39 12/02/24 06:39 Labs: Laboratory Results - last 24 hr 11/28/24 11/29/24 12/02/24 06:32 06:30 06:39 MCV 90.9 MCH 30.5 MCHC 33.6 RDW 13.9 Plt Count 130 L MPV 10.0 Absolute Nucleated RBC 0.000 Nucleated RBC % (auto) 0.0 Anion Gap 15 Estim Creat Clear Calc 5.1 Estimated GFR 6 Random Glucose 81 Calcium 8.0 L Tot Complement (CH50) >60 H TB Test (QFT) Gold Plus NEGATIVE TB Test (QFT) Nil 0.02 TB Test Mitogen - Nil >10.00 TB Test (QFT) +TB1 -NIL 0.01 TB Test (QFT) +TB2 -NIL 0.01 Assessment and Plan (1) RONY (acute kidney injury): Status: Acute (2) Mass of right lung: Status: Acute Plan d8, 79yo F with HLD, HTN, [place] I for PUD, EtOH abuse in remission since 2007, mood disorder, eearly dementia, PAD, TIA on DAPT, seizure disorder, sent in by home economist due to worsening renal function and anemia found to have suspicious RUL lesion RONY acute metabolic acidosis - s/p renal biopsy 11/29/24, initial pathology shows oxalate nephropathy, started K citrate and pt educated on low-oxalate diet, will need close outpt Nephrology follow-up hypoNa - will increase IV NS from 50 mL/hr to 75 mL/hr, recheck Na tomorrow hyperPO4 - started Ca acetate hyperK - resolved after bicarbonate RUL spiculated lesion, 2.2 cm [with tubular punctate nodules in both lungs] - Heme-Onc consulted, not amenable to CT-guided biopsy, will need outpt PET-CT and surgical evaluation cough, aspiration risk - CXR, SCRIPT SUPERVISOR consultation acute anemia, suspect related to renal disease - peripheral smear: Pancytopenia: Normocytic and normochromic anemia with occasional Riri cells: consider anemia of chronic disease vs blood loss vs other etiologies.Leukopenia and thrombocytopenia: smear not diagnostic of etiology. - FOBT positive, continue PPI, GI consulted, no scope indicated - transfused 2u PRBCs with appropriate response moderate protein-calorie malnutrition - supplements seizure disorder - lamotrigine mood disorder - sertraline dementia - memantine hx TIA - held DAPT for renal biopsy VTE ppx - SCDs dispo - plan STR Total time managing care of this patient today: 45 minutes. Quality Stroke Does the patient have a stroke diagnosis?: No Reason for No Anti-thrombotic by Day Two: Contraindicated (acute anemia ) VTE Prior VTE?: Yes VTE Risk Level:: Medical - moderate - high VTE Device Contraindication: N/A - Device Ordered VTE Drug Contraindication: Treatment Not Tolerated
[2024-12-02] MEDS: 0.9 % Sodium Chloride Flush 3 ML SYRINGE IVFLUSH (17:38)
[2024-12-02 18:03] LABS: Fungitell 1,3 beta glucan Negative
[2024-12-02 19:00] LABS: Creatinine, mg/dL 44.27; Sodium, 24 Hr Urine 49.0 mmol/L
[2024-12-02 19:04] LABS: Creatinine, mg/dL 44.19; Uric Acid, mg/dL 13.6 mg/dL
[2024-12-02 19:34] LABS: Total Volume 24 Hour Urine 475 mL
[2024-12-02 19:35] LABS: Total Volume 24 Hour Urine 475 mL
[2024-12-03] VITALS (9 sets, daily range): BP systolic 157–185; BP diastolic 60–80; PULSE 73–92; RESP 16–20; TEMP 36.2–37.1; O2SAT 92–96
[2024-12-03 04:25] LABS: Appearance Urine Clear; Glucose Urine UA 100 mg/dL (Negative); PH 6.0 (5.0-9.0); Specific Gravity - Urine 1.010 (1.005-1.025); UMIC TRIGGER UA YES
--- NOTE | 2024-12-03 07:19 | P.PNIM_ITS ---
Subjective Subjective Date of Service: 12/03/24 Interval History: Patient is pleasantly confused , poor historian at baseline given her Alzheimer's disease Patient at the time my examination reported blurry vision and difficulty swallowing-combined with her higher recorded blood pressure, I had low threshold for stroke workup Head CT unremarkable Passed bedside swallow Patient reports blurry vision for the past 3-5 days , not new Swallowing difficulty also appears to be rather subacute given her progressive Alzheimer's complicated by her current hospitalization Review of Systems Review of Systems: Yes all other systems are reviewed and are negative Physical Exam 2 Exam: Exam: General: AOx3, pleasantly confused Resp: CTA bilaterally CVS: S1, S2, RRR GI: +BS, NT, no distention Neuro: Vision intact, right vision slightly worse, appears to be chronic Psych: Pleasantly confused Vital Signs: Vital Signs: Last Vital Signs Temp 98.8 F 12/03/24 03:12 Pulse 84 12/03/24 03:12 Resp 16 12/03/24 03:12 BP 182/80 H 12/03/24 05:52 Pulse Ox 92 12/03/24 03:12 O2 Del Method Room Air 12/03/24 03:12 O2 Flow Rate 2 11/29/24 11:10 BMI result Body Mass Index 17.4 Objective Data Active Medications Acetaminophen (Acetaminophen 325 Mg Tablet) 650 mg PO Q6H PRN PRN Reason: Pain, Mild 1-3,fever,headache Last Admin: 11/28/24 00:02 Dose: 650 mg Documented By: IGOR Albuterol Sulfate (Albuterol Sulfate 90 Mcg 8 Gm Inhaler) 2 puff INHALE Q6H PRN PRN Reason: shortness of breath or wheezing Albuterol/Ipratropium (Albuterol/Iprat 2.5/0.5mg 3 Ml Ampul.Neb) 3 ml INHALE Q4H PRN PRN Reason: Shortness of Breath/Wheezing Bisacodyl (Bisacodyl 10 Mg Supp.Rect) 10 mg [place] BEDTIME PRN PRN Reason: Constipation Calcium Acetate (Calcium Acetate 667 Mg Capsule) 667 mg PO TIDWM SYLVAIN Last Admin: 12/02/24 17:21 Dose: Not Given Documented By: JUAN Non-Admin Reason: NPO Calcium Carbonate (Calcium Carbonate 750 Mg Tab.Chew) 750 mg PO Q4H PRN PRN Reason: Heartburn Clonazepam (Clonazepam 1 Mg Tablet) 1 mg PO BEDTIME [facility] Last Admin: 12/02/24 19:53 Dose: 1 mg Documented By: HOLLY Clonazepam (Clonazepam 0.5 Mg Tablet) 0.5 mg PO BID@0800,1700 [facility] Last Admin: 12/02/24 17:37 Dose: 0.5 mg Documented By: JUAN Clopidogrel Bisulfate (Clopidogrel Bisulfate 75 Mg Tablet) 75 mg PO DAILY [facility] Last Admin: 12/02/24 09:22 Dose: 75 mg Documented By: JUAN Duloxetine HCl (Duloxetine Hcl 30 Mg Capsule.Dr) 30 mg PO BID [facility] Last Admin: 12/02/24 19:51 Dose: 30 mg Documented By: HOLLY Fluticasone Propionate (Fluticasone Propionate Nasal 16 Gm [place]) 2 spray NOSTRIL-B DAILY PRN PRN Reason: for allergies Gabapentin (Gabapentin 100 Mg Capsule) 100 mg PO BID [facility] Last Admin: 12/02/24 19:52 Dose: 100 mg Documented By: HOLLY Hydralazine HCl (Hydralazine Hcl 20 Mg/Ml Vial) 10 mg IVPUSH Q6H PRN; Protocol PRN Reason: SBP > 160 Last Admin: 12/03/24 06:34 Dose: 10 mg Documented By: HOLLY Comments: per Dr. Crawley's order Hydralazine HCl (Hydralazine Hcl 25 Mg Tablet) 75 mg PO TID [facility]; Protocol Last Admin: 12/03/24 03:27 Dose: 75 mg Documented By: HOLLY Sodium Chloride (Ns) 1,000 mls @ 75 mls/hr IVCONT .[id number] [facility] Last Infusion: 12/02/24 19:56 Dose: 75 mls/hr Documented By: HOLLY Lamotrigine (Lamotrigine 100 Mg Tablet) 150 mg PO DAILY [facility] Last Admin: 12/02/24 09:22 Dose: 150 mg Documented By: JUAN Lidocaine (Lidocaine 4 % Patch Adh..Patch) 1 patch TRANSDERMA DAILY [facility]; Protocol Last Admin: 12/02/24 09:31 Dose: 1 patch Documented By: JUAN Magnesium Hydroxide (Milk Of Magnesia 30 Ml Oral.Susp) 30 ml PO DAILY PRN PRN Reason: Constipation Last Admin: 11/29/24 17:44 Dose: 30 ml Documented By: CAMILLE Melatonin (Melatonin 3 Mg Tablet) 6 mg PO BEDTIME PRN PRN Reason: Insomnia Memantine (Memantine Hcl 5 Mg Tablet) 5 mg PO BID [facility] Last Admin: 12/02/24 19:51 Dose: 5 mg Documented By: HOLLY Metoclopramide HCl (Metoclopramide Hcl 10 Mg/2 Ml Vial) 5 mg IVPUSH Q4H PRN PRN Reason: N/V unrelieved by Saul Last Admin: 11/27/24 18:39 Dose: 5 mg Documented By: ARNIE Multivitamins/Vitamin C (Multivitamin Tablet) 1 tab PO DAILY [facility] Last Admin: 12/02/24 09:47 Dose: Not Given Documented By: JUAN Non-Admin Reason: Physician Held Med Nitroglycerin (Nitroglycerin 0.4 Mg Tab.Subl) 0.4 mg SUBLINGUAL Q5MX3 PRN PRN Reason: Chest Pain Last Admin: 11/28/24 01:51 Dose: 0.4 1000units Documented By: IGOR Ondansetron HCl (Ondansetron Hcl 4 Mg/2 Ml Vial) 4 mg IVPUSH Q4H PRN PRN Reason: Nausea and Vomiting Last Admin: 11/28/24 11:22 Dose: 4 mg Documented By: CAMILLE Polyethylene Glycol (Polyethylene Glycol 3350 17 Gm Powd.Pack) 17 gm PO DAILY [facility] Last Admin: 12/02/24 09:39 Dose: Not Given Documented By: JUAN Non-Admin Reason: Physician Held Med Potassium Bicarbonate (Potassium Bicarbonate/Cit Ac 25 Meq Tablet.Eff) 25 meq PO DAILY [facility] Last Admin: 12/02/24 09:26 Dose: Not Given Documented By: JUAN Non-Admin Reason: NPO Pravastatin Sodium (Pravastatin Sodium 40 Mg Tablet) 40 mg PO BEDTIME [facility] Last Admin: 12/02/24 19:52 Dose: 40 mg Documented By: OHLLY Pyridoxine HCl (Pyridoxine Hcl (Vitamin B6) 50 Mg Tablet) 50 mg PO DAILY [facility] Last Admin: 12/02/24 09:22 Dose: 50 mg Documented By: JUAN Senna (Sennosides 8.6 Mg Tablet) 17.2 mg PO BEDTIME [facility] Last Admin: 12/02/24 19:51 Dose: 17.2 mg Documented By: HOLLY Sertraline HCl (Sertraline Hcl 50 Mg Tablet) 50 mg PO DAILY [facility] Last Admin: 12/02/24 09:22 Dose: 50 mg Documented By: JUAN Sodium Chloride (0.9 % Sodium Chloride Flush 3 Ml Syringe) 3 ml IVFLUSH [facility] Last Admin: 12/02/24 22:16 Dose: Not Given Documented By: HOLLY Non-Admin Reason: duplicate order Sodium Chloride (0.9 % Sodium Chloride Flush 3 Ml Syringe) 3 ml IVFLUSH [facility] Last Admin: 12/02/24 22:16 Dose: Not Given Documented By: HOLLY Non-Admin Reason: IV Running Trazodone HCl (Trazodone Hcl 100 Mg Tablet) 100 mg PO BEDTIME [facility] Last Admin: 12/02/24 19:52 Dose: 100 mg Documented By: HOLLY Vitamin D (Cholecalciferol (Vitamin D3) 25 Mcg Tablet) 25 mcg PO DAILY [facility] Last Admin: 12/02/24 09:50 Dose: 25 mcg Documented By: JUAN Labs 12/02/24 06:39 12/03/24 06:53 Labs: Laboratory Results - last 24 hr 11/29/24 12/02/24 12/02/24 06:30 01:28 01:28 Anion Gap Estim Creat Clear Calc Estimated GFR Random Glucose Calcium Urine Color Urine Appearance Urine pH Ur Specific [place] Urine Protein Urine Glucose (UA) Urine Ketones Urine Blood Urine Nitrite Ur Leukocyte Esterase Urine RBC Urine WBC Ur Squamous Epith Cells Urine Bacteria Hyaline Casts Ur 24 Hour Volume 475 475 Ur Creatinine mg/dL 44.27 Ur Creatinine 24 Hour Creat Clearance 24 Hr Ur Total Protein 24 Hr Ur Sodium 24 Hour Ur Uric Acid 24 Hr Beta-(1,3)-D-Glucan <31 B-(1,3)-D-Glucan Intrp Negative 12/02/24 12/02/24 12/02/24 01:28 01:28 06:39 Anion Gap 15 Estim Creat Clear Calc 5.1 Estimated GFR 6 Random Glucose 81 Calcium 8.0 L Urine Color Urine Appearance Urine pH Ur Specific [place] Urine Protein Urine Glucose (UA) Urine Ketones Urine Blood Urine Nitrite Ur Leukocyte Esterase Urine RBC Urine WBC Ur Squamous Epith Cells Urine Bacteria Hyaline Casts Ur 24 Hour Volume Ur Creatinine mg/dL 44.19 Ur Creatinine 24 Hour 0.2 L 0.2 L Creat Clearance 24 Hr 2.1 L Ur Total Protein 24 Hr 128 Ur Sodium 24 Hour 23.3 L Ur Uric Acid 24 Hr 64.6 L Beta-(1,3)-D-Glucan B-(1,3)-D-Glucan Intrp 12/03/24 03:45 Anion Gap Estim Creat Clear Calc Estimated GFR Random Glucose Calcium Urine Color Yellow Urine Appearance Clear Urine pH 6.0 Ur Specific [place] 1.010 Urine Protein 30 (1+) H Urine Glucose (UA) 100 H Urine Ketones Negative Urine Blood Negative Urine Nitrite Negative Ur Leukocyte Esterase Negative Urine RBC 0-2 Urine WBC 0-5 Ur Squamous Epith Cells 0-2 Urine Bacteria None Seen Hyaline Casts 0-2 Ur 24 Hour Volume Ur Creatinine mg/dL Ur Creatinine 24 Hour Creat Clearance 24 Hr Ur Total Protein 24 Hr Ur Sodium 24 Hour Ur Uric Acid 24 Hr Beta-(1,3)-D-Glucan B-(1,3)-D-Glucan Intrp Assessment and Plan (1) RONY (acute kidney injury): Status: Acute Plan 79 y/o female, medical history includes Alzheimer's dementia dementia, etOH abuse in remission since 2007, PAD, TIA on dapt, seizures, HTN, HLD, PUD s/p gastrectomy in 70's, recent unexplained weight loss. Presented 11/25 after wrosening renal function on outpatient labs. 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 Subacute dysphagia Alzheimer's dementia-pleasantly confused Right vision abnormalities-subacute Patient passed swallow eval-continue one-to-one supervision feeds , her subacute dysphagia was likely in the setting of gradually progressive dementia Alzheimer's dementia-gradually worsening Hyponatremia Likely in the setting of hypovolemic hyponatremia versus SIADH Continue to monitor, Guarded prognosis This note is constructed using voice recognition software. While every effort has been made to ensure accuracy, blanket weaver errors may have been included. Quality Stroke Does the patient have a stroke diagnosis?: No Reason for No Anti-thrombotic by Day Two: Contraindicated (acute anemia ) VTE Prior VTE?: Yes VTE Risk Level:: Medical - moderate - high VTE Device Contraindication: N/A - Device Ordered VTE Drug Contraindication: Treatment Not Tolerated
[2024-12-03 07:31] LABS: Anion Gap 15 (12-20); Blood Urea Nitrogen 68 mg/dL (9-16); Calcium 8.2 mg/dL (8.4-10.2); Carbon Dioxide 17 mmol/L (22-29); Chloride 101 mmol/L (96-108); Creatinine Clr Calc Pharmacy 5.2; Estimated Glomerular Filt Rate 6; Potassium 4.0 mmol/L (3.3-5.1); Sodium 129 mmol/L (135-145)
[2024-12-03] MEDS: Potassium Bicarbonate/Cit AC 25 MEQ TABLET.EFF PO (09:35)
[2024-12-03] MEDS: Lidocaine 4 % Patch ADH..PATCH 1 PATCH TRANSDERMA (09:36)
[2024-12-03] MEDS: Milk of Magnesia 30 ML ORAL.SUSP PO (10:03)
[2024-12-03] MEDS: 0.9 % Sodium Chloride Flush 3 ML SYRINGE IVFLUSH ×3 (10:04→19:48)
--- NOTE | 2024-12-03 13:19 | MHC.SL.SWA ---
Speech Pathologist Impression: Oropharyngeal coordination WNL Risk of Aspiration Due to: Dysphasia Diet Status: Recc REGULAR diet with THIN liquids, tray set-up and intermittent checks, upright positioning for 20-30 min after eating, see GI report Liquid Consistency and Strategies for Safe Swallow: Liquid Intake Recommendation: Thin Liquid Intake Strategies: Solid Food Consistency: Dietary Recommendations: Regular Additional Modifications to Solid Foods: Oral Medication Intake: Whole with Puree Please contact the pharmacy regarding appropriate crushable or liquid drug formulations that are available whenever modified delivery is recommended. Compensatory Strategies and Precautions to be Taken for Safe Swallow: Supervision While Eating and Drinking for Safe Swallow: Tray Set Up Foods to Avoid: Swallowing Recommended Treatments: COMMISSARY CLERK followup x1 Recommendation for Speech: Inpatient Speech Therapy Comment: Oromotor exam unremarkable, pt alert to task and conversant, denying history of dysphagia but endorsing difficulty with taking pills in hospital. Oropharyngeal swallow WNL, no overt s/s of aspiration with thins, purees and solids. COMMISSARY CLERK provided education to pt on reason for evaluation and results, recc pt take meds in puree while in hospital, pt stated her daughter will get purees for her to do so at home. Pt endorses GI reflux, GI has consulted. MD and RN notified of results. Recc regular diet/thin liquids, COMMISSARY CLERK to followup x1. Frequency/Duration: COMMISSARY CLERK followup x1 Date Range for Service Req: Timeline to reassess: Lead Generation Marketing Manager Clinican/Clinical Fellow: No Supervisory Statement: I have reviewed and agree with the student/clinical fellow's documentation: N/A Speech Language Pathologist: Ann Shankar M.S., CCC-COMMISSARY CLERK
[2024-12-03] MEDS: Sodium Bicarbonate 8.4% 50 MEQ in Dextrose 5 % 950 ML 75 MEQ IV (15:23)
--- NOTE | 2024-12-03 19:53 | HO.SKINPHOTO ---
Location: Category: Stage: Length: Width: Depth: cm Location: Category: Stage: Length: Width: Depth: cm Location: Category: Stage: Length: Width: Depth: cm Location: Category: Stage: Length: Width: Depth: cm Location: Category: Stage: Length: Width: Depth: cm Location: Category: Stage: Length: Width: Depth: cm
[2024-12-04] VITALS (15 sets, daily range): BP systolic 129–190; BP diastolic 56–80; PULSE 63–95; RESP 10–111; TEMP 36.2–37.1; O2SAT 93–96
[2024-12-04] MEDS: Sodium Bicarbonate 8.4% 50 MEQ in Dextrose 5 % 950 ML 75 MEQ IV ×2 (04:31→18:43)
[2024-12-04 06:53] LABS: MANUAL DIFF FLAG NO
[2024-12-04 07:01] LABS: Hematocrit 26.3 % (37.0-47.0); Hemoglobin 8.8 g/dl (12.0-16.0); Imm Gran Abs Auto 0.02 X10*3/uL (0.00-0.03); Imm Gran Pct Auto 0.4 % (0.0-0.4); Lymphocytes Absolute Auto 0.8 X10*3/uL (1.2-4.9); Mean Corpuscular HGB Conc 33.5 g/dl (31.0-35.0); Mean Corpuscular Hemoglobin 29.8 pg (27.0-33.0); Mean Corpuscular Volume 89.2 fL (80.0-98.0); NRBC Abs Auto 0.000 X10*3/uL (0.0-0.012); NRBC Pct Auto 0.0 /100WBC (0.0-0.2); Platelet Count 147 X10*3/uL (160-400); Red Blood Count 2.95 X10*6/uL (4.20-5.50); White Blood Count 5.3 X10*3/uL (4.8-10.8)
[2024-12-04 07:33] LABS: Alanine Aminotransferase 31 U/L (0-31); Albumin Level 3.3 g/dL (3.5-5.0); Alkaline Phosphatase 67 U/L (39-117); Anion Gap 13 (12-20); Aspartate Amino Transferase 35 U/L (5-31); Blood Urea Nitrogen 64 mg/dL (9-16); Calcium 8.1 mg/dL (8.4-10.2); Chloride 98 mmol/L (96-108); Creatinine Clr Calc Pharmacy 5.4; Estimated Glomerular Filt Rate 6; Potassium 4.1 mmol/L (3.3-5.1); Sodium 128 mmol/L (135-145); Total Protein 5.0 g/dL (6.5-8.0)
[2024-12-04 07:34] LABS: Carbon Dioxide 21 mmol/L (22-29)
--- NOTE | 2024-12-04 07:34 | P.CONHOSP_ITS ---
History of Present Illness Data of Consult Primary Care Provider: Espinoza Santiago MD [facility] Medical History DVT (deep venous thrombosis) Depression Dementia Degenerative disease of nervous system, unspecified Multifactorial gait disorder Ataxia Peripheral neuropathy Arthritis Complex partial seizures Vitamin D deficiency TIA (transient ischemic attack) Seizure Alzheimer's dementia Anxiety Insomnia Osteoporosis Anemia Gait abnormality Partial symptomatic epilepsy with complex partial seizures, not intractable, without status epilepticus Asthma Pure hypercholesterolemia Peripheral arterial disease Unsteady gait Neuropathy Benign essential hypertension Alcoholism in remission Exertional dyspnea Functional capacity: independent ambulation Family History Father CVD (cardiovascular disease) Heart disease Hypertension Stroke Mother CVD (cardiovascular disease) Heart disease Asthma Maternal Grandmother No problems noted. Maternal Grandfather No problems noted. Paternal Grandmother No problems noted. Paternal Grandfather No problems noted. Maternal Aunt Tongue cancer Surgical History Status post insertion of nerve stimulator Hx of foot surgery Hx of nasal septoplasty History of esophagogastroduodenoscopy (EGD) H/O colonoscopy History of angioplasty History of partial gastrectomy History of cholecystectomy History of cataract surgery History of hysterectomy History of tubal ligation S/P excision of neuroma Social History Household Members: None Housing: Apartment Housing Other:: senior housing Are you a primary lawn caretaker to a significant other at home: No Do you presently have visiting nurse or other home services: No Alcohol intake: former Comment: NA Patient Tobacco Use Status: Former Tobacco user e-Cigarette/Vaping Use: Never Used Second Hand Smoke Exposure: No Advance Directives Date on File: 06/12/21 service: No Current occupational status: retired Current occupational exposures/hazards: No Cognitive needs: No Hearing needs: No Vision needs: Yes Ebola Risk: Travel/Contact With Anyone From Affected Area/s: No Has Patient Experienced Ebola Symptoms: No Meds Allergies Allergy/AdvReac Type Severity Reaction Status Date / Time morphine (Morphine) Allergy Severe VOMITING/LONGORIA Verified 11/24/24 20:24 LLUCINATION S codeine (Codeine) Allergy Intermediate VOMITING/HALLUCINATIONS, Verified 11/24/24 20:24 nause/extended abdomen latex Allergy Unknown Unknown Verified 11/24/24 20:24 atorvastatin AdvReac Intermediate fever, Verified 11/24/24 20:24 chills, abd pain, numbness capsaicin (CAPSAICIN) AdvReac Intermediate BURNING Verified 11/24/24 20:24 bacitracin Allergy Intermediate redness Uncoded 11/24/24 20:24 and itching adhesives Allergy Mild rash Uncoded 11/24/24 20:24 Active Medications: Current Medications Acetaminophen (Acetaminophen 325 Mg Tablet) 650 mg PO Q6H PRN PRN Reason: Pain, Mild 1-3,fever,headache Last Admin: 11/28/24 00:02 Dose: 650 mg Albuterol Sulfate (Albuterol Sulfate 90 Mcg 8 Gm Inhaler) 2 puff INHALE Q6H PRN PRN Reason: shortness of breath or wheezing Albuterol/Ipratropium (Albuterol/Iprat 2.5/0.5mg 3 Ml Ampul.Neb) 3 ml INHALE Q4H PRN PRN Reason: Shortness of Breath/Wheezing Bisacodyl (Bisacodyl 10 Mg Supp.Rect) 10 mg [place] BEDTIME [facility] Last Admin: 12/03/24 19:50 Dose: 10 mg Calcium Acetate (Calcium Acetate 667 Mg Capsule) 667 mg PO TIDWM [facility] Last Admin: 12/03/24 16:43 Dose: 667 mg Calcium Carbonate (Calcium Carbonate 750 Mg Tab.Chew) 750 mg PO Q4H PRN PRN Reason: Heartburn Clonazepam (Clonazepam 1 Mg Tablet) 1 mg PO BEDTIME [facility] Last Admin: 12/03/24 19:49 Dose: 1 mg Clonazepam (Clonazepam 0.5 Mg Tablet) 0.5 mg PO BID@0800,1700 [facility] Last Admin: 12/03/24 16:43 Dose: 0.5 mg Clopidogrel Bisulfate (Clopidogrel Bisulfate 75 Mg Tablet) 75 mg PO DAILY [facility] Last Admin: 12/03/24 09:35 Dose: 75 mg Duloxetine HCl (Duloxetine Hcl 30 Mg Capsule.Dr) 30 mg PO BID [facility] Last Admin: 12/03/24 19:49 Dose: 30 mg Fluticasone Propionate (Fluticasone Propionate Nasal 16 Gm [place]) 2 spray NOSTRIL-B DAILY PRN PRN Reason: for allergies Gabapentin (Gabapentin 100 Mg Capsule) 100 mg PO BID [facility] Last Admin: 12/03/24 19:49 Dose: 100 mg Hydralazine HCl (Hydralazine Hcl 20 Mg/Ml Vial) 10 mg IVPUSH Q6H PRN; Protocol PRN Reason: SBP > 160 Last Admin: 12/04/24 00:50 Dose: 10 mg Hydralazine HCl (Hydralazine Hcl 25 Mg Tablet) 75 mg PO TID [facility]; Protocol Last Admin: 12/03/24 21:22 Dose: 75 mg Sodium Bicarbonate 50 meq/ (Dextrose) 1,000 mls @ 75 mls/hr IV .[id number] [facility] Last Admin: 12/04/24 04:31 Dose: 75 mls/hr Lamotrigine (Lamotrigine 100 Mg Tablet) 150 mg PO DAILY [facility] Last Admin: 12/03/24 09:35 Dose: 150 mg Lidocaine (Lidocaine 4 % Patch Adh..Patch) 1 patch TRANSDERMA DAILY [facility]; Protocol Last Admin: 12/03/24 09:36 Dose: 1 patch Melatonin (Melatonin 3 Mg Tablet) 6 mg PO BEDTIME PRN PRN Reason: Insomnia Memantine (Memantine Hcl 5 Mg Tablet) 5 mg PO BID [facility] Last Admin: 12/03/24 19:50 Dose: 5 mg Metoclopramide HCl (Metoclopramide Hcl 10 Mg/2 Ml Vial) 5 mg IVPUSH Q4H PRN PRN Reason: N/V unrelieved by Saul Last Admin: 11/27/24 18:39 Dose: 5 mg Multivitamins/Vitamin C (Multivitamin Tablet) 1 tab PO DAILY [facility] Last Admin: 12/03/24 09:36 Dose: 1 tab Nitroglycerin (Nitroglycerin 0.4 Mg Tab.Subl) 0.4 mg SUBLINGUAL Q5MX3 PRN PRN Reason: Chest Pain Last Admin: 11/28/24 01:51 Dose: 0.4 1000units Ondansetron HCl (Ondansetron Hcl 4 Mg/2 Ml Vial) 4 mg IVPUSH Q4H PRN PRN Reason: Nausea and Vomiting Last Admin: 11/28/24 11:22 Dose: 4 mg Polyethylene Glycol (Polyethylene Glycol 3350 17 Gm Powd.Pack) 17 gm PO BID [facility] Last Admin: 12/03/24 19:50 Dose: 17 gm Potassium Bicarbonate (Potassium Bicarbonate/Cit Ac 25 Meq Tablet.Eff) 25 meq PO DAILY [facility] Last Admin: 12/03/24 09:35 Dose: 25 meq Pravastatin Sodium (Pravastatin Sodium 40 Mg Tablet) 40 mg PO BEDTIME [facility] Last Admin: 12/03/24 19:49 Dose: 40 mg Pyridoxine HCl (Pyridoxine Hcl (Vitamin B6) 50 Mg Tablet) 50 mg PO DAILY [facility] Last Admin: 12/03/24 09:35 Dose: 50 mg Senna (Sennosides 8.6 Mg Tablet) 17.2 mg PO BID [facility] Last Admin: 12/03/24 19:49 Dose: 17.2 mg Sertraline HCl (Sertraline Hcl 50 Mg Tablet) 50 mg PO DAILY [facility] Last Admin: 12/03/24 09:35 Dose: 50 mg Sodium Biphosphate/Sodium Phosphate (Sodium Phosphate,[place]-Dibasic 133 Ml Enema) 133 ml [place] ONCE PRN PRN Reason: Constipation Sodium Chloride (0.9 % Sodium Chloride Flush 3 Ml Syringe) 3 ml IVFLUSH [facility] Last Admin: 12/03/24 19:48 Dose: 3 ml Sodium Chloride (0.9 % Sodium Chloride Flush 3 Ml Syringe) 3 ml IVFLUSH [facility] Last Admin: 12/03/24 21:24 Dose: Not Given Trazodone HCl (Trazodone Hcl 100 Mg Tablet) 100 mg PO BEDTIME [facility] Last Admin: 12/03/24 19:49 Dose: 100 mg Vitamin D (Cholecalciferol (Vitamin D3) 25 Mcg Tablet) 25 mcg PO DAILY [facility] Last Admin: 12/03/24 09:36 Dose: 25 mcg Home Medications ?Medication ?Instructions ?Recorded ?Confirmed ?Last Taken ?Type lamotrigine 150 mg tablet 150 mg PO DAILY 11/25/2409/1311/24/24 09:00 History multivitamin 1 tab PO DAILY 11/25/24 090 09/1311/24/24 09:00 History Physical Exam 2 Vital Signs and Narrative: Vital Signs: Last Vital Signs Temp 98.8 F 12/04/24 07:07 Pulse 80 12/04/24 07:07 Resp 18 12/04/24 07:07 BP 165/73 H 12/04/24 07:07 Pulse Ox 93 12/04/24 07:07 O2 Del Method Room Air 12/04/24 07:07 O2 Flow Rate 2 11/29/24 11:10 BMI result Body Mass Index 17.4 Results Labs 12/04/24 06:41 12/04/24 06:41 Labs: Laboratory Results - last 24 hr 12/04/24 06:41 MCV 89.2 MCH 29.8 MCHC 33.5 RDW 13.9 Plt Count 147 L MPV 9.8 Immature Gran % (Auto) 0.4 Neut % (Auto) 71.2 Lymph % (Auto) 14.1 L [place] % (Auto) 10.5 Eos % (Auto) 3.4 Baso % (Auto) 0.4 Lymph # (Auto) 0.8 L [place] # (Auto) 0.6 Eos # (Auto) 0.2 Baso # (Auto) 0.0 Abs Immat Gran (auto) 0.02 Absolute Neuts (auto) 3.8 Absolute Nucleated RBC 0.000 Nucleated RBC % (auto) 0.0 Anion Gap 13 Estim Creat Clear Calc 5.4 Estimated GFR 6 Random Glucose 117 H Calcium 8.1 L Total Bilirubin 0.4 AST 35 H ALT 31 Alkaline Phosphatase 67 Total Protein 5.0 L Albumin 3.3 L
--- NOTE | 2024-12-04 08:29 | HO.PM.IMPN ---
Subjective Subjective Date of Service: 12/04/24 Interval History: Healthcare proxy invoked Reach out to the daughter Patient to get hemodialysis tomorrow Dialysis cath to be inserted today Patient not yet with a bowel movement-trying enemas scheduled Review of Systems Review of Systems: Yes Unobtainable due to mental condition and Unobtainable due to mental status Physical Exam Exam: Exam: General: AOx3, pleasantly confused Resp: CTA bilaterally CVS: S1, S2, RRR GI: +BS, NT, no distention Neuro: Vision intact, right vision slightly worse, appears to be chronic Psych: Pleasantly confused Vital Signs: Vital Signs: Last Vital Signs Temp 98.8 F 12/04/24 07:07 Pulse 80 12/04/24 07:07 Resp 18 12/04/24 07:07 BP 165/73 H 12/04/24 07:07 Pulse Ox 93 12/04/24 07:07 O2 Del Method Room Air 12/04/24 07:07 O2 Flow Rate 2 11/29/24 11:10 BMI result Body Mass Index 17.4 Objective Data Active Medications Acetaminophen (Acetaminophen 325 Mg Tablet) 650 mg PO Q6H PRN PRN Reason: Pain, Mild 1-3,fever,headache Last Admin: 11/28/24 00:02 Dose: 650 mg Documented By: IGOR Albuterol Sulfate (Albuterol Sulfate 90 Mcg 8 Gm Inhaler) 2 puff INHALE Q6H PRN PRN Reason: shortness of breath or wheezing Albuterol/Ipratropium (Albuterol/Iprat 2.5/0.5mg 3 Ml Ampul.Neb) 3 ml INHALE Q4H PRN PRN Reason: Shortness of Breath/Wheezing Bisacodyl (Bisacodyl 10 Mg Supp.Rect) 10 mg NC BEDTIME [facility] Last Admin: 12/03/24 19:50 Dose: 10 mg Documented By: AUBREE Calcium Acetate (Calcium Acetate 667 Mg Capsule) 667 mg PO TIDWM [facility] Last Admin: 12/03/24 16:43 Dose: 667 mg Documented By: CAMILLE Calcium Carbonate (Calcium Carbonate 750 Mg Tab.Chew) 750 mg PO Q4H PRN PRN Reason: Heartburn Clonazepam (Clonazepam 1 Mg Tablet) 1 mg PO BEDTIME [facility] Last Admin: 12/03/24 19:49 Dose: 1 mg Documented By: AUBREE Clonazepam (Clonazepam 0.5 Mg Tablet) 0.5 mg PO BID@0800,1700 [facility] Last Admin: 12/03/24 16:43 Dose: 0.5 mg Documented By: CAMILLE Clopidogrel Bisulfate (Clopidogrel Bisulfate 75 Mg Tablet) 75 mg PO DAILY [facility] Last Admin: 12/03/24 09:35 Dose: 75 mg Documented By: CAMILLE Duloxetine HCl (Duloxetine Hcl 30 Mg Capsule.Dr) 30 mg PO BID [facility] Last Admin: 12/03/24 19:49 Dose: 30 mg Documented By: AUBREE Fluticasone Propionate (Fluticasone Propionate Nasal 16 Gm [place]) 2 spray NOSTRIL-B DAILY PRN PRN Reason: for allergies Gabapentin (Gabapentin 100 Mg Capsule) 100 mg PO BID [facility] Last Admin: 12/03/24 19:49 Dose: 100 mg Documented By: AUBREE Hydralazine HCl (Hydralazine Hcl 20 Mg/Ml Vial) 10 mg IVPUSH Q6H PRN; Protocol PRN Reason: SBP > 160 Last Admin: 12/04/24 00:50 Dose: 10 mg Documented By: AUBREE Comments: Given now (early) per covering Dr. Crawley written tigertext order Hydralazine HCl (Hydralazine Hcl 25 Mg Tablet) 75 mg PO TID [facility]; Protocol Last Admin: 12/03/24 21:22 Dose: 75 mg Documented By: AUBREE Sodium Bicarbonate 50 meq/ (Dextrose) 1,000 mls @ 75 mls/hr IV .[id number] [facility] Last Admin: 12/04/24 04:31 Dose: 75 mls/hr Documented By: AUBREE Lamotrigine (Lamotrigine 100 Mg Tablet) 150 mg PO DAILY [facility] Last Admin: 12/03/24 09:35 Dose: 150 mg Documented By: CAMILLE Lidocaine (Lidocaine 4 % Patch Adh..Patch) 1 patch TRANSDERMA DAILY [facility]; Protocol Last Admin: 12/03/24 09:36 Dose: 1 patch Documented By: CAMILLE Melatonin (Melatonin 3 Mg Tablet) 6 mg PO BEDTIME PRN PRN Reason: Insomnia Memantine (Memantine Hcl 5 Mg Tablet) 5 mg PO BID [facility] Last Admin: 12/03/24 19:50 Dose: 5 mg Documented By: AUBREE Metoclopramide HCl (Metoclopramide Hcl 10 Mg/2 Ml Vial) 5 mg IVPUSH Q4H PRN PRN Reason: N/V unrelieved by Saul Last Admin: 11/27/24 18:39 Dose: 5 mg Documented By: ARNIE Multivitamins/Vitamin C (Multivitamin Tablet) 1 tab PO DAILY [facility] Last Admin: 12/03/24 09:36 Dose: 1 tab Documented By: CAMILLE Nitroglycerin (Nitroglycerin 0.4 Mg Tab.Subl) 0.4 mg SUBLINGUAL Q5MX3 PRN PRN Reason: Chest Pain Last Admin: 11/28/24 01:51 Dose: 0.4 1000units Documented By: IGOR Ondansetron HCl (Ondansetron Hcl 4 Mg/2 Ml Vial) 4 mg IVPUSH Q4H PRN PRN Reason: Nausea and Vomiting Last Admin: 11/28/24 11:22 Dose: 4 mg Documented By: CAMILLE Polyethylene Glycol (Polyethylene Glycol 3350 17 Gm Powd.Pack) 17 gm PO BID [facility] Last Admin: 12/03/24 19:50 Dose: 17 gm Documented By: AUBREE Potassium Bicarbonate (Potassium Bicarbonate/Cit Ac 25 Meq Tablet.Eff) 25 meq PO DAILY [facility] Last Admin: 12/03/24 09:35 Dose: 25 meq Documented By: CAMILLE Pravastatin Sodium (Pravastatin Sodium 40 Mg Tablet) 40 mg PO BEDTIME [facility] Last Admin: 12/03/24 19:49 Dose: 40 mg Documented By: AUBREE Pyridoxine HCl (Pyridoxine Hcl (Vitamin B6) 50 Mg Tablet) 50 mg PO DAILY [facility] Last Admin: 12/03/24 09:35 Dose: 50 mg Documented By: CAMILLE Senna (Sennosides 8.6 Mg Tablet) 17.2 mg PO BID [facility] Last Admin: 12/03/24 19:49 Dose: 17.2 mg Documented By: AUBREE Sertraline HCl (Sertraline Hcl 50 Mg Tablet) 50 mg PO DAILY [facility] Last Admin: 12/03/24 09:35 Dose: 50 mg Documented By: CAMILLE Sodium Biphosphate/Sodium Phosphate (Sodium Phosphate,[place]-Dibasic 133 Ml Enema) 133 ml [place] ONCE PRN PRN Reason: Constipation Sodium Chloride (0.9 % Sodium Chloride Flush 3 Ml Syringe) [facility] Last Admin: 12/03/24 19:48 Dose: 3 ml Documented By: AUBREE Sodium Chloride (0.9 % Sodium Chloride Flush 3 Ml Syringe) 3 ml IVFLUSH [facility] Last Admin: 12/03/24 21:24 Dose: Not Given Documented By: AUBREE Non-Admin Reason: duplicate order; already done Trazodone HCl (Trazodone Hcl 100 Mg Tablet) 100 mg PO BEDTIME [facility] Last Admin: 12/03/24 19:49 Dose: 100 mg Documented By: AUBREE Vitamin D (Cholecalciferol (Vitamin D3) 25 Mcg Tablet) 25 mcg PO DAILY [facility] Last Admin: 12/03/24 09:36 Dose: 25 mcg Documented By: CAMILLE Labs 12/04/24 06:41 12/04/24 06:41 Labs: Laboratory Results - last 24 hr 12/04/24 06:41 MCV 89.2 MCH 29.8 MCHC 33.5 RDW 13.9 Plt Count 147 L MPV 9.8 Immature Gran % (Auto) 0.4 Neut % (Auto) 71.2 Lymph % (Auto) 14.1 L [place] % (Auto) 10.5 Eos % (Auto) 3.4 Baso % (Auto) 0.4 Lymph # (Auto) 0.8 L [place] # (Auto) 0.6 Eos # (Auto) 0.2 Baso # (Auto) 0.0 Abs Immat Gran (auto) 0.02 Absolute Neuts (auto) 3.8 Absolute Nucleated RBC 0.000 Nucleated RBC % (auto) 0.0 Anion Gap 13 Estim Creat Clear Calc 5.4 Estimated GFR 6 Random Glucose 117 H Calcium 8.1 L Phosphorus 5.1 H Total Bilirubin 0.4 AST 35 H ALT 31 Alkaline Phosphatase 67 Total Protein 5.0 L Albumin 3.3 L Assessment and Plan (1) RONY (acute kidney injury): Status: Acute Plan 79 y/o female, medical history includes Alzheimer's dementia dementia, etOH abuse in remission since 2007, PAD, TIA on dapt, seizures, HTN, HLD, PUD s/p gastrectomy in 70's, recent unexplained weight loss. Presented 11/25 after wrosening renal function on outpatient labs. 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 Subacute dysphagia Alzheimer's dementia-pleasantly confused Right vision abnormalities-subacute Patient passed swallow eval-continue one-to-one supervision feeds , her subacute dysphagia was likely in the setting of gradually progressive dementia-daughter made aware Alzheimer's dementia-gradually worsening Hyponatremia Likely in the setting of hypovolemic hyponatremia versus SIADH Continue to monitor, Guarded prognosis HCP invoked, daughter would like lacked aggressive measures This note is constructed using voice recognition software. While every effort has been made to ensure accuracy, recessing machine operator errors may have been included. Quality Stroke Does the patient have a stroke diagnosis?: No Reason for No Anti-thrombotic by Day Two: Contraindicated (acute anemia ) VTE Prior VTE?: Yes VTE Risk Level:: Medical - moderate - high VTE Device Contraindication: N/A - Device Ordered VTE Drug Contraindication: Treatment Not Tolerated
[2024-12-04] MEDS: Lidocaine 4 % Patch ADH..PATCH 1 PATCH TRANSDERMA (09:43)
[2024-12-04] MEDS: Potassium Bicarbonate/Cit AC 25 MEQ TABLET.EFF PO (09:49)
[2024-12-04] MEDS: 0.9 % Sodium Chloride Flush 3 ML SYRINGE IVFLUSH (09:50)
--- NOTE | 2024-12-04 11:00 | PM.PNNEP ---
Subjective Subjective Date of Service: 12/04/24 Interval history: Patient is pleasantly confused , poor historian at baseline given her Alzheimer's disease Patient at the time my examination reported blurry vision and difficulty swallowing-combined with her higher recorded blood pressure, I had low threshold for stroke workup Head CT unremarkable Passed bedside swallow Patient reports blurry vision for the past 3-5 days , not new Swallowing difficulty also appears to be rather subacute given her progressive Alzheimer's complicated by her current hospitalization Physical Exam Vital Signs: Vital Signs: Last Vital Signs Temp 98.1 F 12/04/24 11:04 Pulse 73 12/04/24 11:04 Resp 18 12/04/24 11:04 BP 136/60 12/04/24 11:04 Pulse Ox 96 12/04/24 11:04 O2 Del Method Room Air 12/04/24 11:04 O2 Flow Rate 2 11/29/24 11:10 BMI result Body Mass Index 17.4 Objective Data Labs 12/04/24 06:41 12/04/24 06:41 Labs: Laboratory Results - last 24 hr 12/02/24 12/04/24 01:28 06:41 WBC 5.3 RBC 2.95 L Hgb 8.8 L Hct 26.3 L MCV 89.2 MCH 29.8 MCHC 33.5 RDW 13.9 Plt Count 147 L MPV 9.8 Immature Gran % (Auto) 0.4 Neut % (Auto) 71.2 Lymph % (Auto) 14.1 L [place] % (Auto) 10.5 Eos % (Auto) 3.4 Baso % (Auto) 0.4 Lymph # (Auto) 0.8 L [place] # (Auto) 0.6 Eos # (Auto) 0.2 Baso # (Auto) 0.0 Abs Immat Gran (auto) 0.02 Absolute Neuts (auto) 3.8 Absolute Nucleated RBC 0.000 Nucleated RBC % (auto) 0.0 Sodium 128 L Potassium 4.1 Chloride 98 Carbon Dioxide 21 L Anion Gap 13 BUN 64 H Creatinine 6.87 H* 6.38 H* Estim Creat Clear Calc 5.4 Estimated GFR 6 Random Glucose 117 H Calcium 8.1 L Phosphorus 5.1 H Total Bilirubin 0.4 AST 35 H ALT 31 Alkaline Phosphatase 67 Total Protein 5.0 L Albumin 3.3 L Microbiology Microbiology Results: Microbiology 11/25/24 05:44 Urine clean catch - Clean Catch Midstream Urine Culture - Final 11/24/24 Unknown Urine clean catch - Clean Catch Midstream Urine Culture - Final No growth. 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 Discussed with patient and daughter who are both ok with this plan. Hemoglobin 8.8, will administer procrit today Patient given information on low oxalate foods regular blood pressure checks, close I&O monitoring. avoid nephrotoxins continue supportive care Discussed with Dr Hawkins Time Spent With Patient Time: Total time managing care of this patient today ____ minutes. Progress Note: Quality Stroke Does the patient have a stroke diagnosis?: No Reason for No Anti-thrombotic by Day Two: Contraindicated (acute anemia )
[2024-12-04 11:18] LABS: Creatinine (CrCl) 6.87 mg/dL (0.5-1.4)
--- NOTE | 2024-12-04 12:21 | HO.HCP_ITS ---
Health Care Proxy Invocation Health Care Proxy Declaration: I, , on the date cited below, have determined that, Sheldon Baxter , lacks the capacity to make or communicate, informed health care decision. This determination is made in accordance with accepted standards of medical judgment and pursuant to [place] c. 201D, the [place] Health Care Proxy Law. The cause, nature, extent and probable duration of the patient's inapacity are described below: Cause: Alzheimers Dementia Nature: Extent: Unable to measure the degree, but mild-moderate per current clinical illness Probable Duration of Patient's Incapacity: Unclear, but likely prolonged
--- NOTE | 2024-12-04 13:32 | MHC.CM.PN ---
Per MD, who spoke with Daughter/HCP/Abby, HCP would like everything done, including HD, as needed. Per MD, Patient is not medically cleared for dc and dc plan is TBD. CM will continue to follow.
--- NOTE | 2024-12-04 14:08 | MHC.SLORD ---
Speech Language Pathology Order Status: Pt seen after lunch, working with PT. PIPE [employer]W [employer]EMAN updated diet order, pt has no PO diet or GI restrictions. MD and RN consulted. PIPE CREW FOREMAN to check pt PO tolerance x1 unless concerns arise.
[2024-12-04] MEDS: oxyCODONE HCl Immed Release 5 MG TABLET PO (15:01)
--- NOTE | 2024-12-04 16:44 | MHC.CLN ---
F/U DIET ADVANCED TO REGULAR. PATIENT TO START HEMODIALYSIS. RECOMMEND DIET CHANGE TO 2GM NA, LOW K+ DIET R/T RENAL FAILURE. CHANGE SUPPLEMENT TO ENSURE CLEAR TID (RENAL FRIENDLY). PROVIDES 720 KCALS, 24 G PROTEIN. SKIN WITH REDNESS TO BILATERAL BUTTOCKS. PO INTAKE 25-50%. MONITOR PO INTAKE AND ENCOURAGE SUPPLEMENTS.
[2024-12-05 04:00] VITALS: BP 141/63; PULSE 78; RESP 18; TEMP 36.3; O2SAT 92
[2024-12-05 07:08] VITALS: BP 164/89; PULSE 73; RESP 18; TEMP 36.4; O2SAT 92
--- NOTE | 2024-12-05 07:18 | P.PNIM_ITS ---
Subjective Subjective Date of Service: 12/05/24 Interval History: Patient to get hemodialysis today Started her on scheduled amlodipine, we will uptitrate David or arbs contraindicated given her need for dialysis Continues to endorse occasional headache and vision changes which is likely chronic for her Less likely to have stroke or seizures Still awaiting renal recovery Review of Systems Review of Systems: Yes all other systems are reviewed and are negative Physical Exam 2 Exam: Exam: General: AOx3, pleasantly confused Resp: CTA bilaterally CVS: S1, S2, RRR GI: +BS, NT, no distention Neuro: Vision intact, right vision slightly worse, appears to be chronic Psych: Pleasantly confused Vital Signs: Vital Signs: Last Vital Signs Temp 97.5 F 12/05/24 07:08 Pulse 73 12/05/24 07:08 Resp 18 12/05/24 07:08 BP 164/89 H 12/05/24 07:08 Pulse Ox 92 12/05/24 07:08 O2 Del Method Room Air 12/05/24 07:08 O2 Flow Rate 2 12/04/24 17:00 BMI result Body Mass Index 17.4 Objective Data Active Medications Acetaminophen (Acetaminophen 325 Mg Tablet) 650 mg PO Q6H PRN PRN Reason: Pain, Mild 1-3,fever,headache Last Admin: 12/04/24 10:35 Dose: 650 mg Documented By: RAMY Albuterol Sulfate (Albuterol Sulfate 90 Mcg 8 Gm Inhaler) 2 puff INHALE Q6H PRN PRN Reason: shortness of breath or wheezing Albuterol/Ipratropium (Albuterol/Iprat 2.5/0.5mg 3 Ml Ampul.Neb) 3 ml INHALE Q4H PRN PRN Reason: Shortness of Breath/Wheezing Bisacodyl (Bisacodyl 10 Mg Supp.Rect) 10 mg ID BEDTIME SYLVAIN Last Admin: 12/04/24 20:49 Dose: Not Given Documented By: VIVIENNE Non-Admin Reason: Patient Refused Comments: loose stool Calcium Acetate (Calcium Acetate 667 Mg Capsule) 667 mg PO TIDWM [facility] Last Admin: 12/04/24 18:43 Dose: 667 mg Documented By: RAMY Calcium Carbonate (Calcium Carbonate 750 Mg Tab.Chew) 750 mg PO Q4H PRN PRN Reason: Heartburn Clonazepam (Clonazepam 1 Mg Tablet) 1 mg PO BEDTIME [facility] Last Admin: 12/04/24 20:48 Dose: 1 mg Documented By: VIVIENNE Clonazepam (Clonazepam 0.5 Mg Tablet) 0.5 mg PO BID@0800,1700 [facility] Last Admin: 12/04/24 18:43 Dose: 0.5 mg Documented By: RAMY Clopidogrel Bisulfate (Clopidogrel Bisulfate 75 Mg Tablet) 75 mg PO DAILY [facility] Last Admin: 12/04/24 09:48 Dose: 75 mg Documented By: RAMY Duloxetine HCl (Duloxetine Hcl 30 Mg Capsule.) 30 mg PO BID [facility] Last Admin: 12/04/24 20:48 Dose: 30 mg Documented By: VIVIENNE Fluticasone Propionate (Fluticasone Propionate Nasal 16 Gm [place]) 2 spray NOSTRIL-B DAILY PRN PRN Reason: for allergies Gabapentin (Gabapentin 100 Mg Capsule) 100 mg PO BID [facility] Last Admin: 12/04/24 20:48 Dose: 100 mg Documented By: VIVIENNE Hydralazine HCl (Hydralazine Hcl 20 Mg/Ml Vial) 10 mg IVPUSH Q6H PRN; Protocol PRN Reason: SBP > 160 Last Admin: 12/04/24 00:50 Dose: 10 mg Documented By: AUBREE Comments: Given now (early) per covering Dr. Crawley written tigertext order Hydralazine HCl (Hydralazine Hcl 25 Mg Tablet) 75 mg PO TID [facility]; Protocol Last Admin: 12/04/24 20:47 Dose: 75 mg Documented By: VIVIENNE Sodium Bicarbonate 50 meq/ (Dextrose) 1,000 mls @ 75 mls/hr IV .[id number] [facility] Last Admin: 12/05/24 06:42 Dose: Not Given Documented By: VIVIENNE Non-Admin Reason: IV Running Lamotrigine (Lamotrigine 100 Mg Tablet) 150 mg PO DAILY [facility] Last Admin: 12/04/24 09:47 Dose: 150 mg Documented By: RAMY Lidocaine (Lidocaine 4 % Patch Adh..Patch) 1 patch TRANSDERMA DAILY [facility]; Protocol Last Admin: 12/04/24 09:43 Dose: 1 patch Documented By: RAMY Melatonin (Melatonin 3 Mg Tablet) 6 mg PO BEDTIME PRN PRN Reason: Insomnia Memantine (Memantine Hcl 5 Mg Tablet) 5 mg PO BID [facility] Last Admin: 12/04/24 20:49 Dose: 5 mg Documented By: VIVIENNE Metoclopramide HCl (Metoclopramide Hcl 10 Mg/2 Ml Vial) 5 mg IVPUSH Q4H PRN PRN Reason: N/V unrelieved by Saul Last Admin: 11/27/24 18:39 Dose: 5 mg Documented By: ARNIE Multivitamins/Vitamin C (Multivitamin Tablet) 1 tab PO DAILY [facility] Last Admin: 12/04/24 09:49 Dose: 1 tab Documented By: RAMY Nitroglycerin (Nitroglycerin 0.4 Mg Tab.Subl) 0.4 mg SUBLINGUAL Q5MX3 PRN PRN Reason: Chest Pain Last Admin: 11/28/24 01:51 Dose: 0.4 1000units Documented By: IGOR Ondansetron HCl (Ondansetron Hcl 4 Mg/2 Ml Vial) 4 mg IVPUSH Q4H PRN PRN Reason: Nausea and Vomiting Last Admin: 11/28/24 11:22 Dose: 4 mg Documented By: CAMILLE Oxycodone HCl (Oxycodone Hcl Immed Release 5 Mg Tablet) 5 mg PO Q4H PRN PRN Reason: Pain, Moderate(Pain Scale 4-6) Last Admin: 12/04/24 15:01 Dose: 5 mg Documented By: JUAN Polyethylene Glycol (Polyethylene Glycol 3350 17 Gm Powd.Pack) 17 gm PO BID [facility] Last Admin: 12/04/24 20:47 Dose: Not Given Documented By: VIVIENNE Non-Admin Reason: Patient Refused Comments: loose stool Potassium Bicarbonate (Potassium Bicarbonate/Cit Ac 25 Meq Tablet.Eff) 25 meq PO DAILY [facility] Last Admin: 12/04/24 09:49 Dose: 25 meq Documented By: RAMY Pravastatin Sodium (Pravastatin Sodium 40 Mg Tablet) 40 mg PO BEDTIME [facility] Last Admin: 12/04/24 20:48 Dose: 40 mg Documented By: VIVIENNE Pyridoxine HCl (Pyridoxine Hcl (Vitamin B6) 50 Mg Tablet) 50 mg PO DAILY [facility] Last Admin: 12/04/24 09:47 Dose: 50 mg Documented By: RAMY Senna (Sennosides 8.6 Mg Tablet) 17.2 mg PO BID [facility] Last Admin: 12/04/24 20:47 Dose: Not Given Documented By: VIVIENNE Non-Admin Reason: Patient Refused Comments: loose stool Sertraline HCl (Sertraline Hcl 50 Mg Tablet) 50 mg PO DAILY [facility] Last Admin: 12/04/24 09:49 Dose: 50 mg Documented By: RAMY Sodium Biphosphate/Sodium Phosphate (Sodium Phosphate,[place]-Dibasic 133 Ml Enema) 133 ml ID ONCE PRN PRN Reason: Constipation Sodium Chloride (0.9 % Sodium Chloride Flush 3 Ml Syringe) 3 ml IVFLUSH QSHIFT [facility] Last Admin: 12/04/24 20:24 Dose: Not Given Documented By: VIVIENNE Non-Admin Reason: IV Running Sodium Chloride (0.9 % Sodium Chloride Flush 3 Ml Syringe) 3 ml IVFLUSH QSHIFT [facility] Last Admin: 12/04/24 20:25 Dose: Not Given Documented By: VIVIENNE Non-Admin Reason: IV Running Trazodone HCl (Trazodone Hcl 100 Mg Tablet) 100 mg PO BEDTIME [facility] Last Admin: 12/04/24 20:47 Dose: 100 mg Documented By: VIVIENNE Vitamin D (Cholecalciferol (Vitamin D3) 25 Mcg Tablet) 25 mcg PO DAILY [facility] Last Admin: 12/04/24 09:49 Dose: 25 mcg Documented By: RAMY Labs 12/05/24 06:40 12/05/24 06:41 Labs: Laboratory Results - last 24 hr 12/04/24 06:41 Anion Gap 13 Estim Creat Clear Calc 5.4 Estimated GFR 6 Random Glucose 117 H Calcium 8.1 L Phosphorus 5.1 H Total Bilirubin 0.4 AST 35 H ALT 31 Alkaline Phosphatase 67 Total Protein 5.0 L Albumin 3.3 L Assessment and Plan (1) RONY (acute kidney injury): Status: Acute Plan 79 y/o female, medical history includes Alzheimer's dementia dementia, etOH abuse in remission since 2007, PAD, TIA on dapt, seizures, HTN, HLD, PUD s/p gastrectomy in 70's, recent unexplained weight loss. Presented 11/25 after wrosening renal function on outpatient labs. Nephro, GI, Heme-Onc consulted RONY likely 2/2 biopsy-proven oxalate nephropathy without renal recovery-now requiring hemodialysis Stage IV CKD now requiring hemodialysis started as of 12/05/2024 R IJ placed on 12/04/2024 Acidosis-likely in the setting of worsening CKD resolved Patient is nonoliguric No uremic symptoms Nephrology following Patient initiated on HD as of 12/05/2024 Right IJ placed on 12/04/2024 HTN Likely secondary to CKD, suboptimally controlled DAVID and arbs contraindicated, we will start her on amlodipine and hydralazine p.o. with IV p.r.n. Subacute dysphagia Alzheimer's dementia-pleasantly confused Right vision abnormalities-subacute Patient passed swallow eval-continue one-to-one supervision feeds , her subacute dysphagia was likely in the setting of gradually progressive dementia-daughter made aware Alzheimer's dementia-gradually worsening Hyponatremia Likely in the setting of hypovolemic hyponatremia versus SIADH Continue to monitor, Guarded prognosis HCP invoked, daughter would like lacked aggressive measures This note is constructed using voice recognition software. While every effort has been made to ensure accuracy, home health care physician errors may have been included. Quality Stroke Does the patient have a stroke diagnosis?: No Reason for No Anti-thrombotic by Day Two: Contraindicated (acute anemia ) VTE Prior VTE?: Yes VTE Risk Level:: Medical - moderate - high VTE Device Contraindication: N/A - Device Ordered VTE Drug Contraindication: Treatment Not Tolerated
[2024-12-05 07:24] LABS: MANUAL DIFF FLAG NO
[2024-12-05 07:36] LABS: Hematocrit 26.8 % (37.0-47.0); Hemoglobin 9.1 g/dl (12.0-16.0); Imm Gran Abs Auto 0.03 X10*3/uL (0.00-0.03); Imm Gran Pct Auto 0.4 % (0.0-0.4); Lymphocytes Absolute Auto 0.6 X10*3/uL (1.2-4.9); Mean Corpuscular HGB Conc 34.0 g/dl (31.0-35.0); Mean Corpuscular Hemoglobin 29.9 pg (27.0-33.0); Mean Corpuscular Volume 88.2 fL (80.0-98.0); NRBC Abs Auto 0.000 X10*3/uL (0.0-0.012); NRBC Pct Auto 0.0 /100WBC (0.0-0.2); Platelet Count 154 X10*3/uL (160-400); Red Blood Count 3.04 X10*6/uL (4.20-5.50); White Blood Count 7.2 X10*3/uL (4.8-10.8)
[2024-12-05 07:49] LABS: Alanine Aminotransferase 30 U/L (0-31); Albumin Level 3.6 g/dL (3.5-5.0); Alkaline Phosphatase 71 U/L (39-117); Anion Gap 14 (12-20); Aspartate Amino Transferase 29 U/L (5-31); Blood Urea Nitrogen 61 mg/dL (9-16); Calcium 8.2 mg/dL (8.4-10.2); Carbon Dioxide 22 mmol/L (22-29); Chloride 92 mmol/L (96-108); Creatinine Clr Calc Pharmacy 5.6; Estimated Glomerular Filt Rate 7; Potassium 4.0 mmol/L (3.3-5.1); Sodium 124 mmol/L (135-145); Total Protein 5.4 g/dL (6.5-8.0)
[2024-12-05] MEDS: Potassium Bicarbonate/Cit AC 25 MEQ TABLET.EFF PO (10:49)
[2024-12-05] MEDS: 0.9 % Sodium Chloride Flush 3 ML SYRINGE IVFLUSH (10:50)
[2024-12-05] MEDS: Lidocaine 4 % Patch ADH..PATCH 1 PATCH TRANSDERMA (10:51)
--- NOTE | 2024-12-05 10:54 | P.PNNP_ITS ---
Subjective Subjective Date of Service: 12/05/24 Interval history: Here with acute renal failure. renal biopsy- oxalate nephropaty. patient continues with minimal renal function, remains confused though unclear if related to dementia, vs uremia or other. tunneled HD catheter placed yesterday. Plan for initial short HD session today. Patient denies new complaints/concerns. No events noted. Physical Exam 2 Vital Signs: Vital Signs: Last Vital Signs Temp 97.5 F 12/05/24 07:08 Pulse 73 12/05/24 07:08 Resp 18 12/05/24 07:08 BP 164/89 H 12/05/24 07:08 Pulse Ox 92 12/05/24 07:08 O2 Del Method Room Air 12/05/24 07:08 O2 Flow Rate 2 12/04/24 17:00 BMI result Body Mass Index 17.4 Const: General: no acute distress, alert and awake Resp: Effort & Inspection: normal respiratory effort and able to speak in complete sentences Auscultation: clear to auscultation bilaterally Cardio: Rate: regular rate Rhythm: regular rhythm Heart sounds: S1 normal heart sound present and S2 normal heart sound present GI: Palpation (GI): Soft to palpation and nontender Skin: Rashes: no rashes Neuro: Other: mild tremor, hands. Extrem: General: No edema Objective Data Labs 12/05/24 06:40 12/05/24 06:41 Labs: Laboratory Results - last 24 hr 12/02/24 12/05/24 12/05/24 01:28 06:40 06:41 WBC 7.2 RBC 3.04 L Hgb 9.1 L Hct 26.8 L MCV 88.2 MCH 29.9 MCHC 34.0 RDW 13.9 Plt Count 154 L MPV 9.1 L Immature Gran % (Auto) 0.4 Neut % (Auto) 81.2 H Lymph % (Auto) 7.8 L [place] % (Auto) 7.8 Eos % (Auto) 2.5 Baso % (Auto) 0.3 Lymph # (Auto) 0.6 L [place] # (Auto) 0.6 Eos # (Auto) 0.2 Baso # (Auto) 0.0 Abs Immat Gran (auto) 0.03 Absolute Neuts (auto) 5.8 Absolute Nucleated RBC 0.000 Nucleated RBC % (auto) 0.0 Sodium 124 L Potassium 4.0 Chloride 92 L Carbon Dioxide 22 Anion Gap 14 BUN 61 H Creatinine 6.87 H* 6.21 H* Estim Creat Clear Calc 5.6 Estimated GFR 7 Random Glucose 100 Calcium 8.2 L Total Bilirubin 0.4 AST 29 ALT 30 Alkaline Phosphatase 71 Total Protein 5.4 L Albumin 3.6 Microbiology Microbiology Results: Microbiology 11/25/24 05:44 Urine clean catch - Clean Catch Midstream Urine Culture - Final 11/24/24 Unknown Urine clean catch - Clean Catch Midstream Urine Culture - Final No growth. 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 Plan to start hemodialysis today. Discussed with patient and daughter who are both ok with this plan. Hemoglobin 9.1, procrit administered yesterday. potassium 4.0 Ca 8.2. phos 5.1- no need for binders at this time, will continue to monitor. Patient given information on low oxalate foods regular blood pressure checks, close I&O monitoring. avoid nephrotoxins continue supportive care Discussed with Dr Hawkins Time Spent With Patient Time: Total time managing care of this patient today ____ minutes. Progress Note: Quality Stroke Does the patient have a stroke diagnosis?: No Reason for No Anti-thrombotic by Day Two: Contraindicated (acute anemia )
[2024-12-05] MEDS: Sodium Bicarbonate 8.4% 50 MEQ in Dextrose 5 % 950 ML 75 MEQ IV (11:15)
[2024-12-05 11:22] VITALS: BP 168/77; PULSE 77; RESP 17; TEMP 36.4; O2SAT 95
[2024-12-05 15:19] VITALS: BP 168/81; PULSE 84; RESP 18; TEMP 36.3; O2SAT 93
--- NOTE | 2024-12-05 17:20 | MHC.SL.SWA ---
Speech Pathologist Impression: Risk of Aspiration Due to: Dysphasia Diet Status: Recommend TRAY SET UP with INTERMITTENT SUPERVISION at meals Continue on REGULAR DIET, with THIN LIQUIDS, pills whole with PUREE. BASEBALL WINDER to f/u X1 to assure patient's access to meals. Liquid Consistency and Strategies for Safe Swallow: Liquid Intake Recommendation: Thin Liquid Intake Strategies: Solid Food Consistency: Dietary Recommendations: Regular Additional Modifications to Solid Foods: Oral Medication Intake: Whole with Puree Please contact the pharmacy regarding appropriate crushable or liquid drug formulations that are available whenever modified delivery is recommended. Compensatory Strategies and Precautions to be Taken for Safe Swallow: Sitting Upright (90 deg) Liquids from Cup Liquids from Straw Small Bites and Sips Supervision While Eating and Drinking for Safe Swallow: Intermittent Supervision Foods to Avoid: Swallowing Recommended Treatments: Compens. Strategy Educat. Recommendation for Speech: Inpatient Speech Therapy Comment: Patient seen at breakfast this morning. Noted that GSR set up tray for patient and inquired if she needed anything, which patient stated no. However it was apparent patient needed some more help with opening items and then also cutting up some of the food so that she could easily access. Patient was also reclined and bed needed to be raised to 90 degrees (with patient commenting that's better! ). With all items open, syrup opened and poured on Arabic toast and Arabic [place] cut, patient was then able to begin to eat independently. Patient then took bites of the toasst and egg, noted mild hand tremor, but able to navigate fork well, chewed and swallowed without difficulty. Patient also took sips of juice by straw with no difficulty. Patient is able to tolerate least restrictive diet well, however DOES need assistance with tray, set up, having larger pieces cut up for her, and then some monitoring to make sure she is progressing. Recommend TRAY SET UP with INTERMITTENT SUPERVISION at meals Continue on REGULAR DIET, with THIN LIQUIDS, pills whole with PUREE. BASEBALL WINDER to f/u X1 to assure patient's access to meals. Frequency/Duration: BASEBALL WINDER followup x1 Date Range for Service Req: Timeline to reassess: Glass Cleaning Machine Tender Clinican/Clinical Fellow: No Supervisory Statement: I have reviewed and agree with the student/clinical fellow's documentation: N/A Speech Language Pathologist: Ofelia Corea M.A., [facility]BASEBALL [facility]
[2024-12-05 19:12] VITALS: BP 156/70; PULSE 82; RESP 18; TEMP 36.7; O2SAT 93
[2024-12-05 23:17] VITALS: BP 142/64; PULSE 86; RESP 18; TEMP 36.6; O2SAT 93
[2024-12-06] VITALS (8 sets, daily range): BP systolic 133–168; BP diastolic 60–78; PULSE 74–99; RESP 15–18; TEMP 36.6–36.9; O2SAT 92–95
[2024-12-06 06:17] LABS: MANUAL DIFF FLAG NO
[2024-12-06 06:22] LABS: Hematocrit 26.3 % (37.0-47.0); Hemoglobin 9.0 g/dl (12.0-16.0); Imm Gran Abs Auto 0.02 X10*3/uL (0.00-0.03); Imm Gran Pct Auto 0.4 % (0.0-0.4); Lymphocytes Absolute Auto 0.7 X10*3/uL (1.2-4.9); Mean Corpuscular HGB Conc 34.2 g/dl (31.0-35.0); Mean Corpuscular Hemoglobin 30.3 pg (27.0-33.0); Mean Corpuscular Volume 88.6 fL (80.0-98.0); NRBC Abs Auto 0.000 X10*3/uL (0.0-0.012); NRBC Pct Auto 0.0 /100WBC (0.0-0.2); Platelet Count 160 X10*3/uL (160-400); Red Blood Count 2.97 X10*6/uL (4.20-5.50); White Blood Count 4.6 X10*3/uL (4.8-10.8)
[2024-12-06 06:39] LABS: Alanine Aminotransferase 26 U/L (0-31); Albumin Level 3.3 g/dL (3.5-5.0); Alkaline Phosphatase 71 U/L (39-117); Anion Gap 11 (12-20); Aspartate Amino Transferase 26 U/L (5-31); Blood Urea Nitrogen 38 mg/dL (9-16); Calcium 8.5 mg/dL (8.4-10.2); Carbon Dioxide 27 mmol/L (22-29); Chloride 98 mmol/L (96-108); Creatinine Clr Calc Pharmacy 7.1; Estimated Glomerular Filt Rate 9; Potassium 4.3 mmol/L (3.3-5.1); Sodium 132 mmol/L (135-145); Total Protein 5.0 g/dL (6.5-8.0)
--- NOTE | 2024-12-06 08:41 | HO.PM.IMPN ---
Subjective Subjective Date of Service: 12/06/24 Interval History: Patient will be NPO from midnight for hemodialysis access Patient is otherwise medically optimized Renal we will follow the patient from rehab Renal function appears much better Review of Systems Review of Systems: Yes all other systems are reviewed and are negative Physical Exam Exam: Exam: General: AOx3, pleasantly confused Resp: CTA bilaterally CVS: S1, S2, RRR GI: +BS, NT, no distention Neuro: Vision intact, right vision slightly worse, appears to be chronic Psych: Pleasantly confused Vital Signs: Vital Signs: Last Vital Signs Temp 97.5 F 12/05/24 07:08 Pulse 73 12/05/24 07:08 Resp 18 12/05/24 07:08 BP 164/89 H 12/05/24 07:08 Pulse Ox 92 12/05/24 07:08 O2 Del Method Room Air 12/05/24 07:08 O2 Flow Rate 2 12/04/24 17:00 BMI result Body Mass Index 17.4 Objective Data Active Medications Acetaminophen (Acetaminophen 325 Mg Tablet) 650 mg PO Q6H PRN PRN Reason: Pain, Mild 1-3,fever,headache Last Admin: 12/04/24 10:35 Dose: 650 mg Documented By: RAMY Albuterol Sulfate (Albuterol Sulfate 90 Mcg 8 Gm Inhaler) 2 puff INHALE Q6H PRN PRN Reason: shortness of breath or wheezing Albuterol/Ipratropium (Albuterol/Iprat 2.5/0.5mg 3 Ml Ampul.Neb) 3 ml INHALE Q4H PRN PRN Reason: Shortness of Breath/Wheezing Amlodipine Besylate (Amlodipine Besylate 5 Mg Tablet) 5 mg PO DAILY [facility]; Protocol Last Admin: 12/05/24 10:49 Dose: 5 mg Documented By: BRYCE Bisacodyl (Bisacodyl 10 Mg Supp.Rect) 10 mg PA BEDTIME [facility] Last Admin: 12/05/24 21:22 Dose: Not Given Documented By: EMPERATRIZ Non-Admin Reason: Patient Refused Calcium Acetate (Calcium Acetate 667 Mg Capsule) 667 mg PO TIDWM [facility] Last Admin: 12/05/24 16:44 Dose: 667 mg Documented By: SARAH Calcium Carbonate (Calcium Carbonate 750 Mg Tab.Chew) 750 mg PO Q4H PRN PRN Reason: Heartburn Clonazepam (Clonazepam 1 Mg Tablet) 1 mg PO BEDTIME [facility] Last Admin: 12/05/24 21:19 Dose: 1 mg Documented By: EMPERATRIZ Clonazepam (Clonazepam 0.5 Mg Tablet) 0.5 mg PO BID@0800,1700 [facility] Last Admin: 12/05/24 16:44 Dose: 0.5 mg Documented By: SARAH Clopidogrel Bisulfate (Clopidogrel Bisulfate 75 Mg Tablet) 75 mg PO DAILY [facility] Last Admin: 12/05/24 10:48 Dose: 75 mg Documented By: BRYCE Duloxetine HCl (Duloxetine Hcl 30 Mg Capsule.) 30 mg PO BID [facility] Last Admin: 12/05/24 21:19 Dose: 30 mg Documented By: EMPERATRIZ Fluticasone Propionate (Fluticasone Propionate Nasal 16 Gm [place]) 2 spray NOSTRIL-B DAILY PRN PRN Reason: for allergies Gabapentin (Gabapentin 100 Mg Capsule) 100 mg PO BID [facility] Last Admin: 12/05/24 21:19 Dose: 100 mg Documented By: EMPERATRIZ Heparin Sodium (Porcine) (Heparin Sodium,Porcine 5,000 Unit/Ml Vial) 5,000 unit INTRACATH ONCE ONE Stop: 12/06/24 10:01 Hydralazine HCl (Hydralazine Hcl 20 Mg/Ml Vial) 10 mg IVPUSH Q6H PRN; Protocol PRN Reason: SBP > 160 Last Admin: 12/04/24 00:50 Dose: 10 mg Documented By: AUBREE Comments: Given now (early) per covering Dr. Crawley written tigertext order Hydralazine HCl (Hydralazine Hcl 25 Mg Tablet) 75 mg PO TID [facility]; Protocol Last Admin: 12/05/24 21:21 Dose: 75 mg Documented By: EMPERATRIZ Lamotrigine (Lamotrigine 100 Mg Tablet) 150 mg PO DAILY [facility] Last Admin: 12/05/24 10:48 Dose: 150 mg Documented By: BRYCE Lidocaine (Lidocaine 4 % Patch Adh..Patch) 1 patch TRANSDERMA DAILY [facility]; Protocol Last Admin: 12/05/24 10:51 Dose: 1 patch Documented By: BRYCE Melatonin (Melatonin 3 Mg Tablet) 6 mg PO BEDTIME PRN PRN Reason: Insomnia Memantine (Memantine Hcl 5 Mg Tablet) 5 mg PO BID [facility] Last Admin: 12/05/24 21:21 Dose: 5 mg Documented By: EMPERATRIZ Metoclopramide HCl (Metoclopramide Hcl 10 Mg/2 Ml Vial) 5 mg IVPUSH Q4H PRN PRN Reason: N/V unrelieved by Saul Last Admin: 11/27/24 18:39 Dose: 5 mg Documented By: ARNIE Multivitamins/Vitamin C (Multivitamin Tablet) 1 tab PO DAILY [facility] Last Admin: 12/05/24 10:48 Dose: 1 tab Documented By: BRYCE Nitroglycerin (Nitroglycerin 0.4 Mg Tab.Subl) 0.4 mg SUBLINGUAL Q5MX3 PRN PRN Reason: Chest Pain Last Admin: 11/28/24 01:51 Dose: 0.4 1000units Documented By: IGOR Ondansetron HCl (Ondansetron Hcl 4 Mg/2 Ml Vial) 4 mg IVPUSH Q4H PRN PRN Reason: Nausea and Vomiting Last Admin: 11/28/24 11:22 Dose: 4 mg Documented By: CAMILLE Oxycodone HCl (Oxycodone Hcl Immed Release 5 Mg Tablet) 5 mg PO Q4H PRN PRN Reason: Pain, Moderate(Pain Scale 4-6) Last Admin: 12/04/24 15:01 Dose: 5 mg Documented By: JUAN Polyethylene Glycol (Polyethylene Glycol 3350 17 Gm Powd.Pack) 17 gm PO BID [facility] Last Admin: 12/05/24 21:22 Dose: 17 gm Documented By: EMPERATRIZ Potassium Bicarbonate (Potassium Bicarbonate/Cit Ac 25 Meq Tablet.Eff) 25 meq PO DAILY [facility] Last Admin: 12/05/24 10:49 Dose: 25 meq Documented By: BRYCE Pravastatin Sodium (Pravastatin Sodium 40 Mg Tablet) 40 mg PO BEDTIME [facility] Last Admin: 12/05/24 21:22 Dose: 40 mg Documented By: EMPERATRIZ Pyridoxine HCl (Pyridoxine Hcl (Vitamin B6) 50 Mg Tablet) 50 mg PO DAILY [facility] Last Admin: 12/05/24 10:48 Dose: 50 mg Documented By: BRYCE Senna (Sennosides 8.6 Mg Tablet) 17.2 mg PO BID [facility] Last Admin: 12/05/24 21:20 Dose: 17.2 mg Documented By: EMPERATRIZ Sertraline HCl (Sertraline Hcl 50 Mg Tablet) 50 mg PO DAILY [facility] Last Admin: 12/05/24 10:47 Dose: 50 mg Documented By: BRYCE Sodium Biphosphate/Sodium Phosphate (Sodium Phosphate,[place]-Dibasic 133 Ml Enema) 133 ml PA ONCE PRN PRN Reason: Constipation Sodium Chloride (0.9 % Sodium Chloride Flush 3 Ml Syringe) [facility] Last Admin: 12/06/24 04:45 Dose: Not Given Documented By: EMPERATRIZ Non-Admin Reason: Patient Asleep Sodium Chloride (0.9 % Sodium Chloride Flush 3 Ml Syringe) [facility] Last Admin: 12/06/24 04:45 Dose: Not Given Documented By: EMPERATRIZ Non-Admin Reason: Patient Asleep Trazodone HCl (Trazodone Hcl 100 Mg Tablet) 100 mg PO BEDTIME [facility] Last Admin: 12/05/24 21:22 Dose: 100 mg Documented By: EMPERATRIZ Vitamin D (Cholecalciferol (Vitamin D3) 25 Mcg Tablet) 25 mcg PO DAILY [facility] Last Admin: 12/05/24 10:48 Dose: 25 mcg Documented By: BRYCE Labs 12/06/24 06:00 12/06/24 06:00 Labs: Laboratory Results - last 24 hr 12/05/24 12/06/24 15:46 06:00 MCV 88.6 MCH 30.3 MCHC 34.2 RDW 14.0 Plt Count 160 MPV 9.8 Immature Gran % (Auto) 0.4 Neut % (Auto) 70.1 Lymph % (Auto) 15.5 L [place] % (Auto) 11.4 H Eos % (Auto) 2.2 Baso % (Auto) 0.4 Lymph # (Auto) 0.7 L [place] # (Auto) 0.5 Eos # (Auto) 0.1 Baso # (Auto) 0.0 Abs Immat Gran (auto) 0.02 Absolute Neuts (auto) 3.2 Absolute Nucleated RBC 0.000 Nucleated RBC % (auto) 0.0 Anion Gap 11 L Estim Creat Clear Calc 7.1 Estimated GFR 9 Random Glucose 87 Calcium 8.5 Total Bilirubin 0.3 AST 26 ALT 26 Alkaline Phosphatase 71 Total Protein 5.0 L Albumin 3.3 L Urine Osmolality 223 L Ur Random Sodium 38.0 Assessment and Plan (1) RONY (acute kidney injury): Status: Acute Plan 79 y/o female, medical history includes Alzheimer's dementia dementia, etOH abuse in remission since 2007, PAD, TIA on dapt, seizures, HTN, HLD, PUD s/p gastrectomy in 70's, recent unexplained weight loss. Presented 11/25 after wrosening renal function on outpatient labs. 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 with IV p.r.n. Subacute dysphagia Alzheimer's dementia-pleasantly confused Right vision abnormalities-subacute Patient passed swallow eval-continue one-to-one supervision feeds , her subacute dysphagia was likely in the setting of gradually progressive dementia-daughter made aware Alzheimer's dementia-gradually worsening Hyponatremia Likely in the setting of hypovolemic hyponatremia versus SIADH Continue to monitor, Guarded prognosis HCP invoked, daughter would like lacked aggressive measures This note is constructed using voice recognition software. While every effort has been made to ensure accuracy, tenant relations coordinator errors may have been included. Quality Stroke Does the patient have a stroke diagnosis?: No Reason for No Anti-thrombotic by Day Two: Contraindicated (acute anemia ) VTE Prior VTE?: Yes VTE Risk Level:: Medical - moderate - high VTE Device Contraindication: N/A - Device Ordered VTE Drug Contraindication: Treatment Not Tolerated
[2024-12-06] MEDS: Lidocaine 4 % Patch ADH..PATCH 1 PATCH TRANSDERMA (08:43)
[2024-12-06] MEDS: Potassium Bicarbonate/Cit AC 25 MEQ TABLET.EFF PO (08:43)
--- NOTE | 2024-12-06 09:30 | P.PNNP_ITS ---
Subjective Subjective Date of Service: 12/06/24 Interval history: Here with acute renal failure. renal biopsy- oxalate nephropathy. patient continues with minimal renal function, remains confused though unclear if related to dementia, vs uremia or other. tunneled HD catheter placed 12/04 HD initiated 12/05, plan for second HD session today Patient denies new complaints/concerns. No events noted. Physical Exam 2 Vital Signs: Vital Signs: Last Vital Signs Temp 97.9 F 12/06/24 07:14 Pulse 89 12/06/24 07:14 Resp 15 12/06/24 07:14 BP 157/71 H 12/06/24 08:42 Pulse Ox 93 12/06/24 07:14 O2 Del Method Room Air 12/06/24 07:14 O2 Flow Rate 2 12/04/24 17:00 BMI result Body Mass Index 17.4 Const: General: no acute distress, alert and awake Resp: Effort & Inspection: normal respiratory effort and able to speak in complete sentences Auscultation: clear to auscultation bilaterally Cardio: Rate: regular rate Rhythm: regular rhythm Heart sounds: S1 normal heart sound present and S2 normal heart sound present GI: Palpation (GI): Soft to palpation and nontender Skin: Rashes: no rashes Neuro: Other: mild tremor, hands. Extrem: General: No edema Objective Data Labs 12/06/24 06:00 12/06/24 06:00 Labs: Laboratory Results - last 24 hr 12/05/24 12/06/24 15:46 06:00 WBC 4.6 L RBC 2.97 L Hgb 9.0 L Hct 26.3 L MCV 88.6 MCH 30.3 MCHC 34.2 RDW 14.0 Plt Count 160 MPV 9.8 Immature Gran % (Auto) 0.4 Neut % (Auto) 70.1 Lymph % (Auto) 15.5 L [place] % (Auto) 11.4 H Eos % (Auto) 2.2 Baso % (Auto) 0.4 Lymph # (Auto) 0.7 L [place] # (Auto) 0.5 Eos # (Auto) 0.1 Baso # (Auto) 0.0 Abs Immat Gran (auto) 0.02 Absolute Neuts (auto) 3.2 Absolute Nucleated RBC 0.000 Nucleated RBC % (auto) 0.0 Sodium 132 L Potassium 4.3 Chloride 98 Carbon Dioxide 27 Anion Gap 11 L BUN 38 H Creatinine 4.92 H* Estim Creat Clear Calc 7.1 Estimated GFR 9 Random Glucose 87 Calcium 8.5 Total Bilirubin 0.3 AST 26 ALT 26 Alkaline Phosphatase 71 Total Protein 5.0 L Albumin 3.3 L Urine Osmolality 223 L Ur Random Sodium 38.0 Microbiology Microbiology Results: Microbiology 11/25/24 05:44 Urine clean catch - Clean Catch Midstream Urine Culture - Final 11/24/24 Unknown Urine clean catch - Clean Catch Midstream Urine Culture - Final No growth. 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 - will need permcath before d/c- per IR plan for placement tomorrow. Needs to be NPO this evening for catheter placement tomorrow. Hemoglobin 9.0, 10,000 units of procrit administered 12/04 potassium 4.3 Ca 8.5. phos 5.1- no need for binders at this time, will continue to monitor. Patient given information on low oxalate foods regular blood pressure checks, close I&O monitoring. avoid nephrotoxins continue supportive care Discussed with Dr Hawkins Time Spent With Patient Time: Total time managing care of this patient today ____ minutes. Progress Note: Quality Stroke Does the patient have a stroke diagnosis?: No Reason for No Anti-thrombotic by Day Two: Contraindicated (acute anemia )
--- NOTE | 2024-12-06 10:16 | MHC.CLN ---
F/U PO INTAKE POOR CONSUMING 25-50% DIET RX: 2GM NA LOW POTASSIUM PATIENT STARTED HEMODIALYSIS RECEIVING ENSURE CLEAR TID (RENAL FRIENDLY) PROVIDES 720 KCALS, 24 G PROTEIN SKIN WITH REDNESS TO BILATERAL BUTTOCKS MONITOR PO INTAKE AND ENCOURAGE SUPPLEMENTS
--- NOTE | 2024-12-06 10:35 | MHC.CM.PN ---
Per ROUNDS discussion, Patient is not yet medically cleared for dc (New HD/Nephrology following closely); PT is recommending STR and CM will continue to follow.
--- NOTE | 2024-12-06 11:02 | MHC.SLORD ---
Addendum entered and electronically signed by Ann Shankar MS, CCC-OCCUPATIONAL THERAPY MANAGER 12/06/24 11:58: Treatment completed Original Note: Speech Language Pathology Order Status: Pt seen for dysphagia follow up this morning. Pt is tolerating regular diet with thin liquids without concern. RN consulted. Pt endorsed discomfort at site of port (R side of neck), RN/MD reminding pt of reason for port, pt pleasantly confused but rational and cooperative. Recc pt remain on regular diet/thin consistencies.
--- NOTE | 2024-12-06 15:03 | MHC.CM.PN ---
Addendum entered by Catrachita Hunt 12/07/24 12:12: CM spoke with Bonus Clerk/Isabella @ [facility] @ [phone]. Per Isabella, without [facility],family transport or [facility] are the only other options for HD transport and Patient would need to be able to independently get on and off the van and in and out of the home and HD center.UNRULY is working with [facility] (Daughter/HCP's first choice SNF)to try to coordinate dc to that SNF. Per [facility] Cadet, dc details may not all be worked out today. UNRULY has spoken to Patient's Daughter/HCP/Abby and relayed all this information to her. Patient received HD here this morning and per RN, is getting her perma cath today at 2:30PM. CM Addendum entered by Catrachita Hunt 12/06/24 15:22: CM spoke with Clinical Creative Services Designer/Randy @ [phone] to ask about transportation options to and from HD, for a Patient who does not have [facility]. Per Randy, his Bonus Clerk/Isabella handles transportation but she has left for the day.CM will reach out to Isabella tomorrow. Addendum entered by Catrachita Hunt 12/06/24 15:16: An email referral has been made to [facility]. Original Note: HCP is invoked; CM spoke with Daughter/HCP/Abby @ listed number to discuss dc options. UNRULY informed Abby that PT is recommending STR and explained the limited options regarding STR and new HD. UNRULY informed Abby that [facility] accepted Patient for home services if she ultimately decides to take her Mother home. UNRULY will make a referral to [facility] for a [facility] abelino to try to assist with the cost of HD transportation. UNRULY will continue to follow.
[2024-12-06] MEDS: 0.9 % Sodium Chloride Flush 3 ML SYRINGE IVFLUSH ×3 (15:35→20:30)
[2024-12-07] VITALS (12 sets, daily range): BP systolic 125–186; BP diastolic 66–82; PULSE 82–127; RESP 16–18; TEMP 36.4–37.7; O2SAT 92–96
--- NOTE | 2024-12-07 | ECG_ITS ---
Test Reason : Recent event of a flutter, prolonged QT interval Blood Pressure : */* mmHG Vent. Rate : 88 BPM Atrial Rate : 88 BPM P-R Int : 176 ms QRS Dur : 74 ms QT Int : 402 ms P-R-T Axes : 53 -8 41 degrees QTcB Int : 486 ms Sinus rhythm with Premature atrial complexes Otherwise normal ECG When compared with ECG of 07-Dec-2024 20:35, Sinus rhythm has replaced Atrial flutter Nonspecific T wave abnormality no longer evident in Inferior leads T wave inversion no longer evident in Anterolateral leads Referred By: Mateo Rainey Electronically Signed By: ARTEMIO MENDOZA
[2024-12-07 05:09] LABS: HBS Num1 0.26 mIU/mL (0-7.99); HBc Num1 0.04 S/CO (0.00-0.79); HBsAGNum1 0.40 S/CO (0.00-0.99); Hepatitis B Surface Antigen Negative (Negative); ~Hepatitis B Surface Antibody NONREACTIVE (Nonreactive)
[2024-12-07 06:50] LABS: MANUAL DIFF FLAG NO
[2024-12-07 06:58] LABS: Hematocrit 26.0 % (37.0-47.0); Hemoglobin 9.0 g/dl (12.0-16.0); Imm Gran Abs Auto 0.03 X10*3/uL (0.00-0.03); Imm Gran Pct Auto 0.5 % (0.0-0.4); Lymphocytes Absolute Auto 0.8 X10*3/uL (1.2-4.9); Mean Corpuscular HGB Conc 34.6 g/dl (31.0-35.0); Mean Corpuscular Hemoglobin 31.4 pg (27.0-33.0); Mean Corpuscular Volume 90.6 fL (80.0-98.0); NRBC Abs Auto 0.000 X10*3/uL (0.0-0.012); NRBC Pct Auto 0.0 /100WBC (0.0-0.2); Platelet Count 151 X10*3/uL (160-400); Red Blood Count 2.87 X10*6/uL (4.20-5.50); White Blood Count 5.5 X10*3/uL (4.8-10.8)
[2024-12-07 07:15] LABS: Alanine Aminotransferase 28 U/L (0-31); Albumin Level 3.3 g/dL (3.5-5.0); Alkaline Phosphatase 70 U/L (39-117); Anion Gap 14 (12-20); Aspartate Amino Transferase 31 U/L (5-31); Blood Urea Nitrogen 29 mg/dL (9-16); Calcium 8.4 mg/dL (8.4-10.2); Carbon Dioxide 27 mmol/L (22-29); Chloride 101 mmol/L (96-108); Creatinine Clr Calc Pharmacy 9.2; Estimated Glomerular Filt Rate 11; Potassium 3.9 mmol/L (3.3-5.1); Sodium 138 mmol/L (135-145); Total Protein 5.1 g/dL (6.5-8.0)
[2024-12-07] MEDS: 0.9 % Sodium Chloride Flush 3 ML SYRINGE IVFLUSH ×3 (07:43→19:39)
--- NOTE | 2024-12-07 07:59 | P.PNIM_ITS ---
Subjective Subjective Date of Service: 12/07/24 Interval History: Patient was receiving dialysis at the time of my examination Patient received PermCath today Patient likely to be discharged to rehab tomorrow Physical Exam 2 Exam: Exam: General: AOx3, pleasantly confused Resp: CTA bilaterally CVS: S1, S2, RRR GI: +BS, NT, no distention Neuro: Vision intact, right vision slightly worse, appears to be chronic Psych: Pleasantly confused Vital Signs: Vital Signs: Last Vital Signs Temp 97.6 F 12/07/24 07:09 Pulse 93 12/07/24 07:09 Resp 18 12/07/24 07:09 BP 145/66 H 12/07/24 07:09 Pulse Ox 92 12/07/24 07:09 O2 Del Method Room Air 12/07/24 07:09 O2 Flow Rate 2 12/04/24 17:00 BMI result Body Mass Index 17.4 Objective Data Active Medications Acetaminophen (Acetaminophen 325 Mg Tablet) 650 mg PO Q6H PRN PRN Reason: Pain, Mild 1-3,fever,headache Last Admin: 12/04/24 10:35 Dose: 650 mg Documented By: RAMY Albuterol Sulfate (Albuterol Sulfate 90 Mcg 8 Gm Inhaler) 2 puff INHALE Q6H PRN PRN Reason: shortness of breath or wheezing Albuterol/Ipratropium (Albuterol/Iprat 2.5/0.5mg 3 Ml Ampul.Neb) 3 ml INHALE Q4H PRN PRN Reason: Shortness of Breath/Wheezing Amlodipine Besylate (Amlodipine Besylate 5 Mg Tablet) 5 mg PO DAILY SYLVAIN; Protocol Last Admin: 12/06/24 08:42 Dose: 5 mg Documented By: MORGAN Bisacodyl (Bisacodyl 10 Mg Supp.Rect) 10 mg DC BEDTIME SYLVAIN Last Admin: 12/06/24 20:32 Dose: Not Given Documented By: EMPERATRIZ Non-Admin Reason: bm x4 todaay Calcium Acetate (Calcium Acetate 667 Mg Capsule) 667 mg PO TIDWM PENDING SALE TO [facility] Last Admin: 12/06/24 17:04 Dose: 667 mg Documented By: MORGAN Calcium Carbonate (Calcium Carbonate 750 Mg Tab.Chew) 750 mg PO Q4H PRN PRN Reason: Heartburn Clonazepam (Clonazepam 0.5 Mg Tablet) 0.5 mg PO BID@0800,1700 PENDING SALE TO [facility] Last Admin: 12/06/24 17:05 Dose: 0.5 mg Documented By: MORGAN Clopidogrel Bisulfate (Clopidogrel Bisulfate 75 Mg Tablet) 75 mg PO DAILY PENDING SALE TO [facility] Last Admin: 12/06/24 08:41 Dose: 75 mg Documented By: MORGAN Duloxetine HCl (Duloxetine Hcl 30 Mg Capsule.) 30 mg PO BID PENDING SALE TO [facility] Last Admin: 12/06/24 20:29 Dose: 30 mg Documented By: EMPERATRIZ Fluticasone Propionate (Fluticasone Propionate Nasal 16 Gm [place]) 2 spray NOSTRIL-B DAILY PRN PRN Reason: for allergies Gabapentin (Gabapentin 100 Mg Capsule) 100 mg PO BID PENDING SALE TO [facility] Last Admin: 12/06/24 20:29 Dose: 100 mg Documented By: EMPERATRIZ Heparin Sodium (Porcine) (Heparin Sodium,Porcine 5,000 Unit/Ml Vial) 5,000 unit INTRACATH ONCE ONE Stop: 12/07/24 10:01 Hydralazine HCl (Hydralazine Hcl 20 Mg/Ml Vial) 10 mg IVPUSH Q6H PRN; Protocol PRN Reason: SBP > 160 Last Admin: 12/04/24 00:50 Dose: 10 mg Documented By: AUBREE Comments: Given now (early) per covering Dr. Crawley written tigertext order Hydralazine HCl (Hydralazine Hcl 25 Mg Tablet) 75 mg PO TID PENDING SALE TO [facility]; Protocol Last Admin: 12/06/24 20:29 Dose: 75 mg Documented By: EMPERATRIZ Lamotrigine (Lamotrigine 100 Mg Tablet) 150 mg PO DAILY PENDING SALE TO [facility] Last Admin: 12/06/24 08:41 Dose: 150 mg Documented By: MORGAN Lidocaine (Lidocaine 4 % Patch Adh..Patch) 1 patch TRANSDERMA DAILY PENDING SALE TO [facility]; Protocol Last Admin: 12/06/24 08:43 Dose: 1 patch Documented By: MORGAN Melatonin (Melatonin 3 Mg Tablet) 6 mg PO BEDTIME PRN PRN Reason: Insomnia Memantine (Memantine Hcl 5 Mg Tablet) 5 mg PO BID PENDING SALE TO [facility] Last Admin: 12/06/24 20:29 Dose: 5 mg Documented By: EMPERATRIZ Metoclopramide HCl (Metoclopramide Hcl 10 Mg/2 Ml Vial) 5 mg IVPUSH Q4H PRN PRN Reason: N/V unrelieved by Saul Last Admin: 11/27/24 18:39 Dose: 5 mg Documented By: ARNIE Multivitamins/Vitamin C (Multivitamin Tablet) 1 tab PO DAILY PENDING SALE TO [facility] Last Admin: 12/06/24 08:42 Dose: 1 tab Documented By: MORGAN Nitroglycerin (Nitroglycerin 0.4 Mg Tab.Subl) 0.4 mg SUBLINGUAL Q5MX3 PRN PRN Reason: Chest Pain Last Admin: 11/28/24 01:51 Dose: 0.4 1000units Documented By: IGOR Ondansetron HCl (Ondansetron Hcl 4 Mg/2 Ml Vial) 4 mg IVPUSH Q4H PRN PRN Reason: Nausea and Vomiting Last Admin: 11/28/24 11:22 Dose: 4 mg Documented By: CAMILLE Oxycodone HCl (Oxycodone Hcl Immed Release 5 Mg Tablet) 5 mg PO Q4H PRN PRN Reason: Pain, Moderate(Pain Scale 4-6) Last Admin: 12/04/24 15:01 Dose: 5 mg Documented By: JUAN Polyethylene Glycol (Polyethylene Glycol 3350 17 Gm Powd.Pack) 17 gm PO BID PENDING SALE TO [facility] Last Admin: 12/06/24 20:30 Dose: Not Given Documented By: EMPERATRIZ Non-Admin Reason: bm x4 today Potassium Bicarbonate (Potassium Bicarbonate/Cit Ac 25 Meq Tablet.Eff) 25 meq PO DAILY PENDING SALE TO [facility] Last Admin: 12/06/24 08:43 Dose: 25 meq Documented By: MORGAN Pravastatin Sodium (Pravastatin Sodium 40 Mg Tablet) 40 mg PO BEDTIME PENDING SALE TO [facility] Last Admin: 12/06/24 20:29 Dose: 40 mg Documented By: EMPERATRIZ Pyridoxine HCl (Pyridoxine Hcl (Vitamin B6) 50 Mg Tablet) 50 mg PO DAILY PENDING SALE TO [facility] Last Admin: 12/06/24 08:41 Dose: 50 mg Documented By: MORGAN Senna (Sennosides 8.6 Mg Tablet) 17.2 mg PO BID PENDING SALE TO [facility] Last Admin: 12/06/24 20:29 Dose: Not Given Documented By: EMPERATRIZ Non-Admin Reason: bm x4 today Sertraline HCl (Sertraline Hcl 50 Mg Tablet) 50 mg PO DAILY PENDING SALE TO [facility] Last Admin: 12/06/24 08:43 Dose: 50 mg Documented By: MORGAN Sodium Biphosphate/Sodium Phosphate (Sodium Phosphate,Reynolds-Dibasic 133 Ml Enema) 133 ml DC ONCE PRN PRN Reason: Constipation Sodium Chloride (0.9 % Sodium Chloride Flush 3 Ml Syringe) 3 ml IVFLUSH [facility] Last Admin: 12/07/24 07:43 Dose: 3 ml Documented By: LETHA Sodium Chloride (0.9 % Sodium Chloride Flush 3 Ml Syringe) [address] [facility] [facility] Last Admin: 12/07/24 07:45 Dose: Not Given Documented By: LETHA Non-Admin Reason: duplicate order Trazodone HCl (Trazodone Hcl 100 Mg Tablet) 100 mg PO BEDTIME PENDING SALE [facility] Last Admin: 12/06/24 20:29 Dose: 100 mg Documented By: EMPERATRIZ Vitamin D (Cholecalciferol (Vitamin D3) 25 Mcg Tablet) 25 mcg PO DAILY PENDING SALE TO [facility] Last Admin: 12/06/24 08:43 Dose: 25 mcg Documented By: MORGAN Labs 12/07/24 06:22 12/07/24 06:22 Labs: Laboratory Results - last 24 hr 12/05/24 12/07/24 12:49 06:22 MCV 90.6 MCH 31.4 MCHC 34.6 RDW 14.4 Plt Count 151 L MPV 9.4 Immature Gran % (Auto) 0.5 H Neut % (Auto) 70.2 Lymph % (Auto) 14.9 L Reynolds % (Auto) 12.6 H Eos % (Auto) 1.3 Baso % (Auto) 0.5 Lymph # (Auto) 0.8 L Reynolds # (Auto) 0.7 Eos # (Auto) 0.1 Baso # (Auto) 0.0 Abs Immat Gran (auto) 0.03 Absolute Neuts (auto) 3.9 Absolute Nucleated RBC 0.000 Nucleated RBC % (auto) 0.0 Anion Gap 14 Estim Creat Clear Calc 9.2 Estimated GFR 11 Random Glucose 79 Calcium 8.4 Total Bilirubin 0.3 AST 31 ALT 28 Alkaline Phosphatase 70 Total Protein 5.1 L Albumin 3.3 L Hep Bs Antigen Negative Hep Bs Antibody NONREACTIVE Hep B Core Total Ab Nonreactive Assessment and Plan (1) RONY (acute kidney injury): Status: Acute Plan 79 y/o female, medical history includes Alzheimer's dementia dementia, etOH abuse in remission since 2007, PAD, TIA on dapt, seizures, HTN, HLD, PUD s/p gastrectomy in 70's, recent unexplained weight loss. 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 Patient awaiting rehab placement and we will follow outpatient Nephrology next dialysis session Wednesday. 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 with IV p.r.n. Subacute dysphagia Alzheimer's dementia-pleasantly confused Right vision abnormalities-subacute Patient passed swallow eval-continue one-to-one supervision feeds , her subacute dysphagia was likely in the setting of gradually progressive dementia-daughter made aware Alzheimer's dementia-gradually worsening Hyponatremia Likely in the setting of hypovolemic hyponatremia versus SIADH Continue to monitor, Guarded prognosis DVT prophylaxis limited in the setting of thrombocytopenia and CKD 5-SCD boots HCP invoked, daughter would like to continue aggressive measures This note is constructed using voice recognition software. While every effort has been made to ensure accuracy, bunch breaker machine operator errors may have been included. Quality Stroke Does the patient have a stroke diagnosis?: No Reason for No Anti-thrombotic by Day Two: Contraindicated (acute anemia ) VTE Prior VTE?: Yes VTE Risk Level:: Medical - moderate - high VTE Device Contraindication: N/A - Device Ordered VTE Drug Contraindication: Treatment Not Tolerated
--- NOTE | 2024-12-07 08:53 | P.PNNPD_ITS ---
Subjective Subjective Date of Service: 12/07/24 This patient was seen during dialysis. Interval history: Here with acute renal failure. renal biopsy- oxalate nephropathy. Now on HD. temporary catheter placed 12/04; plan for tunneled line placement today after HD. HD initiated 12/05, pt in third session this a.m. Patient denies new complaints/concerns. No events noted. Physical Exam Vital Signs: Vital Signs: Last Vital Signs Temp 97.6 F 12/07/24 07:09 Pulse 93 12/07/24 07:09 Resp 18 12/07/24 07:09 BP 145/66 H 12/07/24 07:09 Pulse Ox 92 12/07/24 07:09 O2 Del Method Room Air 12/07/24 07:09 O2 Flow Rate 2 12/04/24 17:00 BMI result Body Mass Index 17.4 Const: General: no acute distress, alert and awake Resp: Effort & Inspection: normal respiratory effort and able to speak in complete sentences Auscultation: clear to auscultation bilaterally Cardio: Rate: regular rate Rhythm: regular rhythm Heart sounds: S1 normal heart sound present and S2 normal heart sound present GI: Palpation (GI): Soft to palpation and nontender Skin: Rashes: no rashes Extrem: General: No edema Assessment & Plan Assessment and plan (1) RONY (acute kidney injury): Status: Acute Plan Patient with acute renal failure secondary to oxalate nephropathy Dialysis again today right IJ without erythema, swelling, drainage. - permcath placement today after HD. Hemoglobin 9.0, 10,000 units of procrit ordered for today potassium 3.9 Ca 8.4. phos 5.1- no need for binders at this time, will continue to monitor. Patient given information on low oxalate foods Patient is ok for discharge from a renal standpoint after her permcath placement today. Next dialysis session will be Wednesday, 12/11, at outpatient dialysis facility, [facility]. Patient has an outpatient dialysis slot at [facility] in [address] [place] [address] (phone #[phone]). Transportation Design Engineer is Randy. start date is 12/11 around noontime (she will be MWF second shift- exact arrival time TBD). bond manager consult placed to arrange transportation to first visit for outpatient dialysis. Daughter is aware of above plan. Discussed with Dr Hawkins Time Spent With Patient Time: Total time managing care of this patient today ____ minutes. Procedures Date of Service Date of Service: 12/07/24
[2024-12-07] MEDS: Lidocaine 4 % Patch ADH..PATCH 1 PATCH TRANSDERMA (11:26)
--- NOTE | 2024-12-07 13:08 | MHC.CM.PN ---
Per [facility], Daughter was contacted regarding a [facility] application and Daughter declined the assistance.
--- NOTE | 2024-12-07 14:37 | MHC.CM.PN ---
Addendum entered by Catrachita Hunt 12/07/24 15:44: HD run sheets have been successfully faxed to [facility] at [phone].Per Fili Cadet, there are still details to be worked out(HD verification of benefits). CM will continue to follow. Original Note: Hep B panel has been successfully faxed to [facility] at [phone]; they are requesting HD run sheets also but Patient's chart is off the floor while Patient is getting her perma cath. CM will follow.
[2024-12-07] MEDS: oxyCODONE HCl Immed Release 5 MG TABLET PO ×2 (16:24→22:31)
[2024-12-07 18:07] LABS: Calcium/Creatinine Ratio 96 mg/g creat (30-275); Creatinine 24Hr Urine 0.22 g/24 h (0.50-2.15)
--- NOTE | 2024-12-07 20:35 | ECG_ITS ---
Test Reason : CK QT Blood Pressure : */* mmHG Vent. Rate : 113 BPM Atrial Rate : 227 BPM P-R Int : * ms QRS Dur : 72 ms QT Int : 410 ms P-R-T Axes : * -3 53 degrees QTcB Int : 562 ms Atrial flutter with variable A-V block ST & T wave abnormality, consider anterolateral ischemia Prolonged QT Abnormal ECG When compared with ECG of 28-Nov-2024 01:29, Atrial flutter has replaced Sinus rhythm Nonspecific T wave abnormality now evident in Inferior leads T wave inversion now evident in Anterolateral leads Referred By: Mateo Rainey Electronically Signed By: ARTEMIO MENDOZA
--- NOTE | 2024-12-07 20:52 | PM.EVENT ---
Event Note Date of Service: 12/07/24 Event Note: 8:44 p. m. - ECG showed new onset a flutter. There is also QT interval prolongation likely secondary to medications: Sertraline, trazodone, Reglan and Zofran. We will hold these meds for now and continue to monitor QT interval. Also we will add tx with metoprolol tartrate 50 mg p.o. b.i.d. for rate control and at Eliquis 2.5 mg p.o. b.i.d. (age and weight). Pepcid will be ordered for GI prophylaxis as the patient is on Plavix. Time Spent With Patient Time: Total time managing care of this patient today ____ minutes.
[2024-12-07 21:16] LABS: Magnesium 2.3 mg/dL (1.6-2.6)
[2024-12-07 22:20] LABS: MANUAL DIFF FLAG NO
[2024-12-07 22:25] LABS: Hematocrit 28.8 % (37.0-47.0); Hemoglobin 9.6 g/dl (12.0-16.0); Imm Gran Abs Auto 0.05 X10*3/uL (0.00-0.03); Imm Gran Pct Auto 0.8 % (0.0-0.4); Lymphocytes Absolute Auto 0.6 X10*3/uL (1.2-4.9); Mean Corpuscular HGB Conc 33.3 g/dl (31.0-35.0); Mean Corpuscular Hemoglobin 30.9 pg (27.0-33.0); Mean Corpuscular Volume 92.6 fL (80.0-98.0); NRBC Abs Auto 0.000 X10*3/uL (0.0-0.012); NRBC Pct Auto 0.0 /100WBC (0.0-0.2); Platelet Count 155 X10*3/uL (160-400); Red Blood Count 3.11 X10*6/uL (4.20-5.50); White Blood Count 6.1 X10*3/uL (4.8-10.8)
[2024-12-07 22:42] LABS: Alanine Aminotransferase 35 U/L (0-31); Albumin Level 3.6 g/dL (3.5-5.0); Alkaline Phosphatase 77 U/L (39-117); Anion Gap 10 (12-20); Aspartate Amino Transferase 32 U/L (5-31); Blood Urea Nitrogen 17 mg/dL (9-16); Calcium 8.6 mg/dL (8.4-10.2); Carbon Dioxide 28 mmol/L (22-29); Chloride 102 mmol/L (96-108); Creatinine Clr Calc Pharmacy 13.1; Estimated Glomerular Filt Rate 17; Potassium 2.9 mmol/L (3.3-5.1); Sodium 137 mmol/L (135-145); Total Protein 5.3 g/dL (6.5-8.0)
[2024-12-07 22:46] LABS: Troponin-I High Sensitivity 44.5 ng/L (<3.5-17.0)
[2024-12-07 23:02] LABS: Cancel Lactic Acid Canceled
[2024-12-07 23:03] LABS: Reflex Lactate? No addnl Lactic Acid
[2024-12-07] MEDS: Potassium Chloride Packet 20 MEQ PACKET 40 MEQ PO (23:21)
[2024-12-08] VITALS (7 sets, daily range): BP systolic 128–178; BP diastolic 55–74; PULSE 63–73; RESP 16–19; TEMP 36.4–37.2; O2SAT 93–97
--- NOTE | 2024-12-08 01:34 | PC.NURSE ---
Patient initially c/o abdominal pain. States she thinks its from the dialysis machine. Patients family member states the RN stated that the patient had 4 bowel movements today. RN held off on the mirilax and suppository. Administered ducolax pills. Patients abdomen is soft with positive bowel sounds and patient is passing flatus. Patients h.r acutely in the 115-130 range around 2130 and sounded irregular. Patient c/o chest pain and sob at that time with continued abdominal pain. EKG demonstrated a MD sarthak aware. ordered labs, metoprolol, and additional medications but blood pressure was 97/57 in left arm and 125/73 right arm when prior blood pressure was in the 170's. Rectal temp at that time 98.5. Meds held. MD up to see patient. Patients heart was back in sinus rhythm and blood pressure back up to the 170's. Metoprolol administered and potassium replaced. Another EKG administered.
[2024-12-08 06:28] LABS: 24hr Urine Total Volume 475 mL; Oxalic Acid 24 Urine 12.1 mg/24 h (3.6-38.0)
[2024-12-08 06:48] LABS: MANUAL DIFF FLAG NO
--- NOTE | 2024-12-08 07:00 | CA_ITS ---
Transthoracic Echocardiogram Patient (Last, First, Middle): Cary Davis, Gender: F Date of : 1945 Age: 79 Procedure Date: 12/08/2024 Procedure Type: Transthoracic Echocardiogram Location[place] [facility] [place] Height: 167.64 cm Weight: 48.54 kg BSA: 1.53 m2 Heart Rate: 71 bpm BP: 153 / 70 mmHg Robotic Machine Tender Production: Referring MD: Mateo Rainey MD Symptoms: Prominent murmur, a flutter new onset Study Quality: Adequate ECG Rhythm: Sinus Conclusions: - The left ventricular systolic function is normal. The calculated ejection fraction is 63% by biplane method. - Evidence suggests grade II (moderate) diastolic dysfunction. - The left atrium is severely dilated. - There is mild to moderate aortic valve regurgitation. - There is mild mitral valve regurgitation. - There is a moderate circumferential pericardial effusion. There are no definitive echocardiographic findings of tamponade physiology. Findings Left Ventricle Normal left ventricular cavity size. The left ventricular systolic function is normal. The calculated ejection fraction is 63% by biplane method. There is no evidence of regional wall motion abnormalities. Evidence suggests grade II (moderate) diastolic dysfunction. Right Ventricle Normal right ventricular cavity size and systolic function. Atria The left atrium is severely dilated. The right atrium is mildly dilated. Aortic Valve There is a normal trileaflet aortic valve. There is no aortic valve stenosis. There is mild to moderate aortic valve regurgitation. Mitral Valve The mitral valve appears normal. There is mild mitral valve regurgitation. There is no mitral valve stenosis. Pulmonic Valve The pulmonic valve is likely normal. Tricuspid Valve There is mild tricuspid valve regurgitation. There is no evidence of pulmonary hypertension. Great Vessels The asc aorta is normal in size. Venous The inferior vena cava is normal in size and collapses greater than 50% with inspiration. Pericardium/Pleural There is a moderate circumferential pericardial effusion. There are no definitive echocardiographic findings of tamponade physiology. Prior Study Comparison Changes noted compared to prior study dated: 04/10/2020. Pericardial effusion present. Measurements 2D Linear Measurements LVOT Diam: 2.10 3.0+(-)1.3 cm 2D Systolic Function EF 4C: 64.70 >55% EF 2C: 56.20 >55% EF BiP: 63.40 >55% Mitral Valve MV Pk E: 0.93 MV PK A: 0.88 MV Decel Time: 179.00 E/A: 1.10 E'Lateral: 7.72 E'Medial: 7.94 E/E' Med: 11.60 E/E' Lat: 12.00 PHT: 52.00 MVA PHT: 4.[address] [place]: 5.18 Aortic Valve AoV Pk Kevin: 1.71 AoV Mn Kevin: 0.97 AoV VTI: 0.39 AoV Pk Grad: 12.00 Aov Mn Grad: 5.00 AIMEE Cont.VTI: 2.53 LVOT LVOT Pk Kevin: 1.21 LVOT Mn Kevin: 0.73 LVOT VTI: 0.29 LVOT Pk Grad: 6.00 LVOT Mn Grad: 3.00 LVOT Diam: 2.10 LVOT Area: 3.46 Diastolic Function MV Pk E: 0.93 MV Pk A: 0.88 E/A: 1.10 E'Medial: 7.94 E/E' Med: 11.60 E' Laterial: 7.72 E/E' Lat: 12.00 Right Ventricle TAPSE (mm): 31.30 TVS' Kevin: 12.40 Tricuspid Valve TR Pk Kevin: 2.66 TR Pk Grad: 28.00 Great Vessels Aorta Sinus of Valsalva: 3.50 2.0-3.5 cm Ao Asc: 3.60 2.1-3.4 cm Pulmonary Valve PV Pk Kevin: 0.90 Peak PV Grad: 3.00 Updated in Other Vendor System with Status of Final Adalid Royal MD electronically signed on 12/08/2024 11:42:21 AM with status of Final
[2024-12-08 07:01] LABS: Hematocrit 27.2 % (37.0-47.0); Hemoglobin 8.8 g/dl (12.0-16.0); Imm Gran Abs Auto 0.03 X10*3/uL (0.00-0.03); Imm Gran Pct Auto 0.5 % (0.0-0.4); Lymphocytes Absolute Auto 0.8 X10*3/uL (1.2-4.9); Mean Corpuscular HGB Conc 32.4 g/dl (31.0-35.0); Mean Corpuscular Hemoglobin 30.4 pg (27.0-33.0); Mean Corpuscular Volume 94.1 fL (80.0-98.0); NRBC Abs Auto 0.030 X10*3/uL (0.0-0.012); NRBC Pct Auto 0.5 /100WBC (0.0-0.2); Platelet Count 166 X10*3/uL (160-400); Red Blood Count 2.89 X10*6/uL (4.20-5.50); White Blood Count 5.5 X10*3/uL (4.8-10.8)
[2024-12-08 07:19] LABS: Alanine Aminotransferase 33 U/L (0-31); Albumin Level 3.5 g/dL (3.5-5.0); Alkaline Phosphatase 75 U/L (39-117); Aspartate Amino Transferase 29 U/L (5-31); Blood Urea Nitrogen 17 mg/dL (9-16); Calcium 8.6 mg/dL (8.4-10.2); Creatinine Clr Calc Pharmacy 11.6; Estimated Glomerular Filt Rate 15; Total Protein 5.3 g/dL (6.5-8.0)
[2024-12-08 07:31] LABS: Anion Gap 11 (12-20); Carbon Dioxide 30 mmol/L (22-29); Chloride 104 mmol/L (96-108); Potassium 4.1 mmol/L (3.3-5.1); Sodium 141 mmol/L (135-145)
--- NOTE | 2024-12-08 07:36 | P.PNIM_ITS ---
Subjective Subjective Date of Service: 12/09/24 Interval History: A flutter likely 2/2 Permacath 2/2 overlying SVC Nephro readjusted the cath - will get HD on Wednesday Cardiology consulted - new onset mild-mod pericardial effusion without tamponade physiology Pt very anxious - reassured her about her clinical condition, however unsure of comprehension 2/2 dementia HTNsive Review of Systems Review of Systems: Yes all other systems are reviewed and are negative Physical Exam 2 Exam: Exam: General: AOx3, pleasantly confused Resp: CTA bilaterally CVS: S1, S2, RRR GI: +BS, NT, no distention Neuro: Vision intact, right vision slightly worse, appears to be chronic Psych: Pleasantly confused Vital Signs: Vital Signs: Last Vital Signs Temp 97.9 F 12/08/24 06:58 Pulse 73 12/08/24 06:58 Resp 16 12/08/24 06:58 BP 153/70 H 12/08/24 06:58 Pulse Ox 95 12/08/24 06:58 O2 Del Method Room Air 12/08/24 06:58 O2 Flow Rate 2 12/07/24 15:15 BMI result Body Mass Index 17.4 Objective Data Active Medications Acetaminophen (Acetaminophen 325 Mg Tablet) 650 mg PO Q6H PRN PRN Reason: Pain, Mild 1-3,fever,headache Last Admin: 12/07/24 19:33 Dose: 650 mg Documented By: VIVIAN Albuterol Sulfate (Albuterol Sulfate 90 Mcg 8 Gm Inhaler) 2 puff INHALE Q6H PRN PRN Reason: shortness of breath or wheezing Albuterol/Ipratropium (Albuterol/Iprat 2.5/0.5mg 3 Ml Ampul.Neb) 3 ml INHALE Q4H PRN PRN Reason: Shortness of Breath/Wheezing Amlodipine Besylate (Amlodipine Besylate 5 Mg Tablet) 5 mg PO DAILY [facility]; Protocol Last Admin: 12/07/24 11:21 Dose: Not Given Documented By: LETHA Non-Admin Reason: NPO Apixaban (Apixaban 2.5 Mg Tablet) 2.5 mg PO BID [facility] Last Admin: 12/07/24 23:53 Dose: Not Given Documented By: VIVIAN Non-Admin Reason: Patient Condition Contraindication Bisacodyl (Bisacodyl 10 Mg Supp.Rect) 10 mg PA BEDTIME [facility] Last Admin: 12/07/24 23:18 Dose: Not Given Documented By: VIVIAN Non-Admin Reason: Patient Refused Calcium Acetate (Calcium Acetate 667 Mg Capsule) 667 mg PO TIDWM [facility] Last Admin: 12/07/24 16:25 Dose: 667 mg Documented By: JUAN Calcium Carbonate (Calcium Carbonate 750 Mg Tab.Chew) 750 mg PO Q4H PRN PRN Reason: Heartburn Clopidogrel Bisulfate (Clopidogrel Bisulfate 75 Mg Tablet) 75 mg PO DAILY [facility] Last Admin: 12/07/24 11:21 Dose: Not Given Documented By: LETHA Non-Admin Reason: NPO Duloxetine HCl (Duloxetine Hcl 30 Mg Capsule.Dr) 30 mg PO BID [facility] Last Admin: 12/07/24 19:32 Dose: 30 mg Documented By: VIVIAN Famotidine (Famotidine/Pf 20 Mg/2 Ml Vial) 20 mg IVPUSH DAILY [facility] Last Admin: 12/07/24 23:53 Dose: Not Given Documented By: VIVIAN Non-Admin Reason: Patient Condition Contraindication Fluticasone Propionate (Fluticasone Propionate Nasal 16 Gm [place]) 2 spray NOSTRIL-B DAILY PRN PRN Reason: for allergies Gabapentin (Gabapentin 100 Mg Capsule) 100 mg PO BID [facility] Last Admin: 12/07/24 19:33 Dose: 100 mg Documented By: VIVIAN Hydralazine HCl (Hydralazine Hcl 20 Mg/Ml Vial) 10 mg IVPUSH Q6H PRN; Protocol PRN Reason: SBP > 160 Last Admin: 12/04/24 00:50 Dose: 10 mg Documented By: AUBREE Comments: Given now (early) per covering Dr. Crawley written tigertext order Hydralazine HCl (Hydralazine Hcl 25 Mg Tablet) 75 mg PO TID [facility]; Protocol On Hold: 12/07/24 21:31 Last Admin: 12/07/24 19:32 Dose: 75 mg Documented By: VIVIAN Lamotrigine (Lamotrigine 100 Mg Tablet) 150 mg PO DAILY [facility] Last Admin: 12/07/24 11:20 Dose: Not Given Documented By: LETHA Non-Admin Reason: NPO Lidocaine (Lidocaine 4 % Patch Adh..Patch) 1 patch TRANSDERMA DAILY [facility]; Protocol Last Admin: 12/07/24 11:26 Dose: 1 patch Documented By: LETHA Melatonin (Melatonin 3 Mg Tablet) 6 mg PO BEDTIME PRN PRN Reason: Insomnia Memantine (Memantine Hcl 5 Mg Tablet) 5 mg PO BID [facility] Last Admin: 12/07/24 19:33 Dose: 5 mg Documented By: VIVIAN Metoclopramide HCl (Metoclopramide Hcl 10 Mg/2 Ml Vial) 5 mg IVPUSH Q4H PRN On Hold: 12/07/24 20:50 PRN Reason: N/V unrelieved by Saul Last Admin: 11/27/24 18:39 Dose: 5 mg Documented By: ARNIE Metoprolol Tartrate (Metoprolol Tartrate 25 Mg Tablet) 25 mg PO BID [facility]; Protocol Last Admin: 12/07/24 23:39 Dose: 25 mg Documented By: VIVIAN Multivitamins/Vitamin C (Multivitamin Tablet) 1 tab PO DAILY [facility] Last Admin: 12/07/24 11:19 Dose: Not Given Documented By: LETHA Non-Admin Reason: NPO Nitroglycerin (Nitroglycerin 0.4 Mg Tab.Subl) 0.4 mg SUBLINGUAL Q5MX3 PRN PRN Reason: Chest Pain Last Admin: 11/28/24 01:51 Dose: 0.4 1000units Documented By: IGOR Ondansetron HCl (Ondansetron Hcl 4 Mg/2 Ml Vial) 4 mg IVPUSH Q4H PRN On Hold: 12/07/24 20:49 PRN Reason: Nausea and Vomiting Last Admin: 11/28/24 11:22 Dose: 4 mg Documented By: CAMILLE Oxycodone HCl (Oxycodone Hcl Immed Release 5 Mg Tablet) 5 mg PO Q4H PRN PRN Reason: Pain, Moderate(Pain Scale 4-6) Last Admin: 12/07/24 22:31 Dose: 5 mg Documented By: VIVIAN Polyethylene Glycol (Polyethylene Glycol 3350 17 Gm Powd.Pack) 17 gm PO BID [facility] Last Admin: 12/07/24 23:19 Dose: Not Given Documented By: VIVIAN Non-Admin Reason: Patient Refused Potassium Bicarbonate (Potassium Bicarbonate/Cit Ac 25 Meq Tablet.Eff) 25 meq PO DAILY [facility] Last Admin: 12/07/24 11:19 Dose: Not Given Documented By: LETHA Non-Admin Reason: Nausea Pravastatin Sodium (Pravastatin Sodium 40 Mg Tablet) 40 mg PO BEDTIME [facility] Last Admin: 12/07/24 19:32 Dose: 40 mg Documented By: VIVIAN Pyridoxine HCl (Pyridoxine Hcl (Vitamin B6) 50 Mg Tablet) 50 mg PO DAILY [facility] Last Admin: 12/07/24 11:19 Dose: Not Given Documented By: LETHA Non-Admin Reason: NPO Senna (Sennosides 8.6 Mg Tablet) 17.2 mg PO BID [facility] Last Admin: 12/07/24 19:32 Dose: 17.2 mg Documented By: VIVIAN Sertraline HCl (Sertraline Hcl 50 Mg Tablet) 50 mg PO DAILY [facility] On Hold: 12/07/24 20:48 Last Admin: 12/07/24 11:19 Dose: Not Given Documented By: LETHA Non-Admin Reason: NPO Sodium Biphosphate/Sodium Phosphate (Sodium Phosphate,Worth-Dibasic 133 Ml Enema) 133 ml PA ONCE PRN PRN Reason: Constipation Sodium Chloride (0.9 % Sodium Chloride Flush 3 Ml Syringe) [facility] Last Admin: 12/07/24 19:39 Dose: 3 ml Documented By: VIVIAN Sodium Chloride (0.9 % Sodium Chloride Flush 3 Ml Syringe) 3 ml IVFLUSH QSHIFT [facility] Last Admin: 12/08/24 01:33 Dose: Not Given Documented By: VIVIAN Non-Admin Reason: Previously Administered Trazodone HCl (Trazodone Hcl 100 Mg Tablet) 100 mg PO BEDTIME [facility] On Hold: 12/07/24 20:49 Last Admin: 12/07/24 19:32 Dose: 100 mg Documented By: VIVIAN Vitamin D (Cholecalciferol (Vitamin D3) 25 Mcg Tablet) 25 mcg PO DAILY [facility] Last Admin: 12/07/24 11:21 Dose: Not Given Documented By: LETHA Non-Admin Reason: NPO Labs 12/08/24 06:28 12/08/24 06:28 Labs: Laboratory Results - last 24 hr 12/02/24 12/07/24 12/07/24 01:28 06:22 22:13 MCV 92.6 MCH 30.9 MCHC 33.3 RDW 14.3 Plt Count 155 L MPV 9.3 L Immature Gran % (Auto) 0.8 H Neut % (Auto) 75.4 H Lymph % (Auto) 9.8 L Worth % (Auto) 13.0 H Eos % (Auto) 0.5 Baso % (Auto) 0.5 Lymph # (Auto) 0.6 L [place] # (Auto) 0.8 Eos # (Auto) 0.0 Baso # (Auto) 0.0 Abs Immat Gran (auto) 0.05 H Absolute Neuts (auto) 4.6 Absolute Nucleated RBC 0.000 Nucleated RBC % (auto) 0.0 Anion Gap 10 L Estim Creat Clear Calc 13.1 Estimated GFR 17 Random Glucose 276 H Lactic Acid 2.3 H* Calcium 8.6 Magnesium 2.3 Total Bilirubin 0.3 AST 32 H ALT 35 H Alkaline Phosphatase 77 Troponin I High Sens 44.5 H D Total Protein 5.3 L Albumin 3.6 Ur 24 Hour Volume 475 Ur Creatinine 24 Hour 0.22 L Ur Calcium 24 Hr 21 L Calcium/Creat 24 Hr 96 Ur Oxalic Acid 24 Hr 12.1 12/08/24 06:28 MCV 94.1 MCH 30.4 MCHC 32.4 RDW 14.5 Plt Count 166 MPV 9.6 Immature Gran % (Auto) 0.5 H Neut % (Auto) 69.0 Lymph % (Auto) 14.1 L [place] % (Auto) 13.4 H Eos % (Auto) 2.5 Baso % (Auto) 0.5 Lymph # (Auto) 0.8 L [place] # (Auto) 0.7 Eos # (Auto) 0.1 Baso # (Auto) 0.0 Abs Immat Gran (auto) 0.03 Absolute Neuts (auto) 3.8 Absolute Nucleated RBC 0.030 H Nucleated RBC % (auto) 0.5 H Anion Gap 11 L Estim Creat Clear Calc 11.6 Estimated GFR 15 Random Glucose 104 Lactic Acid 1.0 Calcium 8.6 Magnesium Total Bilirubin 0.4 AST 29 ALT 33 H Alkaline Phosphatase 75 Troponin I High Sens Total Protein 5.3 L Albumin 3.5 Ur 24 Hour Volume Ur Creatinine 24 Hour Ur Calcium 24 Hr Calcium/Creat 24 Hr Ur Oxalic Acid 24 Hr Assessment and Plan (1) RONY (acute kidney injury): Status: Acute Plan 79 y/o female, medical history includes Alzheimer's dementia dementia, etOH abuse in remission since 2007, PAD, TIA on dapt, seizures, HTN, HLD, PUD s/p gastrectomy in 70's, recent unexplained weight loss. 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 Overnight s/p permacath placement - pt developed Aflutter, self limited 2/2 cath as well as excessive HD on 12/08/24 Aflutter, self limited 2/2 cath placement (resolved) as well as excessive HD on 12/08/24- Newly diagnosed Mod Pericardial effusion without tamponade physiology - unsure of chronicity Type II TX - peaked trop, no nw EKG changes, AC limited 2/2 chronic comorbidities and risk of pericardial hemorrage with tamponade and HD collapse TTE - - The left ventricular systolic function is normal. The calculated ejection fraction is 63% by biplane method. - Evidence suggests grade II (moderate) diastolic dysfunction. - The left atrium is severely dilated. - There is mild to moderate aortic valve regurgitation. - There is mild mitral valve regurgitation. - There is a moderate circumferential pericardial effusion. There are no definitive echocardiographic findings of tamponade physiology. 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 with IV p.r.n. Subacute dysphagia Alzheimer's dementia-pleasantly confused Right vision abnormalities-subacute Patient passed swallow eval-continue one-to-one supervision feeds , her subacute dysphagia was likely in the setting of gradually progressive dementia-daughter made aware Alzheimer's dementia-gradually worsening Hyponatremia Likely in the setting of hypovolemic hyponatremia versus SIADH Continue to monitor, Guarded prognosis DVT prophylaxis and AC for new onset Aflutter limited in the setting of thrombocytopenia and CKD 5-SCD boots HCP invoked, daughter would like to continue aggressive measures This note is constructed using voice recognition software. While every effort has been made to ensure accuracy, e learning designer errors may have been included. Quality Stroke Does the patient have a stroke diagnosis?: No Reason for No Anti-thrombotic by Day Two: Contraindicated (acute anemia ) VTE Prior VTE?: Yes VTE Risk Level:: Medical - moderate - high VTE Device Contraindication: N/A - Device Ordered VTE Drug Contraindication: Treatment Not Tolerated
[2024-12-08 09:15] LABS: Troponin-I High Sensitivity 77.1 ng/L (<3.5-17.0)
--- NOTE | 2024-12-08 09:21 | P.PNNP_ITS ---
Subjective Subjective Date of Service: 12/08/24 Interval history: Here with acute renal failure. renal biopsy- oxalate nephropathy. Now on HD. permcath placed 12/07 HD initiated 12/05, pt in third session this 12/07. next session will be Wednesday, 12/11 as outpatient Patient reports some ongoing, cpnstant mild chest pain, reports was much more severe last night. ECG with new onset aflutter, started on metoprolol and eliquis. cardiology was consulted. Physical Exam 2 Vital Signs: Vital Signs: Last Vital Signs Temp 97.9 F 12/08/24 06:58 Pulse 73 12/08/24 06:58 Resp 16 12/08/24 06:58 BP 153/70 H 12/08/24 06:58 Pulse Ox 95 12/08/24 06:58 O2 Del Method Room Air 12/08/24 06:58 O2 Flow Rate 2 12/07/24 15:15 BMI result Body Mass Index 17.4 Const: General: no acute distress, alert and awake Resp: Effort & Inspection: normal respiratory effort and able to speak in complete sentences Auscultation: clear to auscultation bilaterally Cardio: Rate: regular rate Rhythm: regular rhythm Heart sounds: S1 normal heart sound present and S2 normal heart sound present GI: Palpation (GI): Soft to palpation and nontender Skin: Rashes: no rashes Extrem: General: No edema Objective Data Labs 12/08/24 06:28 12/08/24 06:28 Labs: Laboratory Results - last 24 hr 12/02/24 12/07/24 12/07/24 01:28 06:22 22:13 WBC 6.1 RBC 3.11 L Hgb 9.6 L Hct 28.8 L MCV 92.6 MCH 30.9 MCHC 33.3 RDW 14.3 Plt Count 155 L MPV 9.3 L Immature Gran % (Auto) 0.8 H Neut % (Auto) 75.4 H Lymph % (Auto) 9.8 L Russell % (Auto) 13.0 H Eos % (Auto) 0.5 Baso % (Auto) 0.5 Lymph # (Auto) 0.6 L Russell # (Auto) 0.8 Eos # (Auto) 0.0 Baso # (Auto) 0.0 Abs Immat Gran (auto) 0.05 H Absolute Neuts (auto) 4.6 Absolute Nucleated RBC 0.000 Nucleated RBC % (auto) 0.0 Sodium 137 Potassium 2.9 L* D Chloride 102 Carbon Dioxide 28 Anion Gap 10 L BUN 17 H Creatinine 2.68 H Estim Creat Clear Calc 13.1 Estimated GFR 17 Random Glucose 276 H Lactic Acid 2.3 H* Calcium 8.6 Magnesium 2.3 Total Bilirubin 0.3 AST 32 H ALT 35 H Alkaline Phosphatase 77 Troponin I High Sens 44.5 H D Total Protein 5.3 L Albumin 3.6 Ur 24 Hour Volume 475 Ur Creatinine 24 Hour 0.22 L Ur Calcium 24 Hr 21 L Calcium/Creat 24 Hr 96 Ur Oxalic Acid 24 Hr 12.1 12/08/24 12/08/24 06:28 08:29 WBC 5.5 RBC 2.89 L Hgb 8.8 L Hct 27.2 L MCV 94.1 MCH 30.4 MCHC 32.4 RDW 14.5 Plt Count 166 MPV 9.6 Immature Gran % (Auto) 0.5 H Neut % (Auto) 69.0 Lymph % (Auto) 14.1 L [place] % (Auto) 13.4 H Eos % (Auto) 2.5 Baso % (Auto) 0.5 Lymph # (Auto) 0.8 L Russell # (Auto) 0.7 Eos # (Auto) 0.1 Baso # (Auto) 0.0 Abs Immat Gran (auto) 0.03 Absolute Neuts (auto) 3.8 Absolute Nucleated RBC 0.030 H Nucleated RBC % (auto) 0.5 H Sodium 141 Potassium 4.1 D Chloride 104 Carbon Dioxide 30 H Anion Gap 11 L BUN 17 H Creatinine 3.02 H Estim Creat Clear Calc 11.6 Estimated GFR 15 Random Glucose 104 Lactic Acid 1.0 Calcium 8.6 Magnesium Total Bilirubin 0.4 AST 29 ALT 33 H Alkaline Phosphatase 75 Troponin I High Sens 77.1 H* D Total Protein 5.3 L Albumin 3.5 Ur 24 Hour Volume Ur Creatinine 24 Hour Ur Calcium 24 Hr Calcium/Creat 24 Hr Ur Oxalic Acid 24 Hr Microbiology Microbiology Results: Microbiology 11/25/24 05:44 Urine clean catch - Clean Catch Midstream Urine Culture - Final 11/24/24 Unknown Urine clean catch - Clean Catch Midstream Urine Culture - Final No growth. Procedures Date of Service Date of Service: 12/08/24 Assessment & Plan Assessment and plan (1) RONY (acute kidney injury): Status: Acute Plan Patient with acute renal failure secondary to oxalate nephropathy last session of dialysis yesterday, 12/07. permcath was placed yesterday, 12/07 after dialysis. Hemoglobin 9.0, 10,000 units of procrit administered 12/07 potassium was 2.9, replaced, now 4.1. Will switch to 3K bath. Ca 8.4. phos 5.1- no need for binders at this time, will continue to monitor. Patient given information on low oxalate foods, continue potassium citrate. Recommend checking placement of permcatheter tip- may be touching valve or myocardium, may be potential cause of atrial flutter given timing of onset. May also have had some ischemia induced during dialysis, or hypovolemia from dialysis as other potential causes. Will run patient even for next dialysis session on Wednesday (now in hospital). Will delay discharge for outpatient dialysis and reassess on Wednesday. Increased amlodipine to 10mg daily given ongoing hypertension. Patient has an outpatient dialysis slot at [facility] in [address] [place] [address] (phone #[phone]). [employer] Supervisor is Randy. start date Wednesday, 12/11 around noontime (she will be MWF second shift- exact arrival time TBD)- delayed due to new arrhythmia. employee communications manager consult placed to arrange transportation to first visit for outpatient dialysis. Discussed with Dr Parham. Time Spent With Patient Time: Total time managing care of this patient today ____ minutes. Progress Note: Quality Stroke Does the patient have a stroke diagnosis?: No Reason for No Anti-thrombotic by Day Two: Contraindicated (acute anemia )
--- NOTE | 2024-12-08 09:26 | ECG_ITS ---
Test Reason : Elevated Troponin Blood Pressure : */* mmHG Vent. Rate : 69 BPM Atrial Rate : 69 BPM P-R Int : 168 ms QRS Dur : 74 ms QT Int : 410 ms P-R-T Axes : 28 63 3 degrees QTcB Int : 439 ms Normal sinus rhythm Cannot rule out Anterior infarct , age undetermined Abnormal ECG When compared with ECG of 07-Dec-2024 22:46, Premature atrial complexes are no longer Present Questionable change in QRS axis T wave inversion now evident in Inferior leads Referred By: Kaye Costello Electronically Signed By: ARTEMIO MENDOZA
[2024-12-08 09:38] LABS: 24hr Urine Total Volume 475 mL; Creatinine, 24U 0.23 g/24 h (0.50-2.15)
[2024-12-08] MEDS: 0.9 % Sodium Chloride Flush 3 ML SYRINGE IVFLUSH ×3 (09:46→20:55)
[2024-12-08] MEDS: Lidocaine 4 % Patch ADH..PATCH 1 PATCH TRANSDERMA (09:54)
[2024-12-08] MEDS: Potassium Bicarbonate/Cit AC 25 MEQ TABLET.EFF PO (10:00)
--- NOTE | 2024-12-08 10:04 | MHC.CLN ---
F/U PO INTAKE SLIGHTLY IMPROVED CONSUMING 50-75% DIET RX: REGULAR 2000ML FLUID RESTRICTION PATIENT CONTINUES WITH HEMODIALYSIS RECEIVING ENSURE CLEAR TID (RENAL FRIENDLY) PROVIDES 720 KCALS, 24 G PROTEIN MONITOR PO INTAKE AND ENCOURAGE SUPPLEMENTS
--- NOTE | 2024-12-08 13:03 | MHC.CM.PN ---
EMR reviewed and per MD rounds, pt is not medically cleared for discharge due to management of acute renal failure on new HD, pt with new onset chest pain overnight and new onset aflutter, cardiology consulted. Anticipating pt will discharge to [facility] for STR this upcoming Monday 12/11.
[2024-12-08] MEDS: oxyCODONE HCl Immed Release 5 MG TABLET PO (20:52)
[2024-12-09] VITALS (7 sets, daily range): BP systolic 131–162; BP diastolic 59–69; PULSE 57–63; RESP 16–18; TEMP 36.2–36.6; O2SAT 94–96
[2024-12-09 07:04] LABS: MANUAL DIFF FLAG NO
[2024-12-09 07:09] LABS: Hematocrit 28.1 % (37.0-47.0); Hemoglobin 9.2 g/dl (12.0-16.0); Imm Gran Abs Auto 0.11 X10*3/uL (0.00-0.03); Imm Gran Pct Auto 1.1 % (0.0-0.4); Lymphocytes Absolute Auto 1.1 X10*3/uL (1.2-4.9); Mean Corpuscular HGB Conc 32.7 g/dl (31.0-35.0); Mean Corpuscular Hemoglobin 30.6 pg (27.0-33.0); Mean Corpuscular Volume 93.4 fL (80.0-98.0); NRBC Abs Auto 0.020 X10*3/uL (0.0-0.012); NRBC Pct Auto 0.2 /100WBC (0.0-0.2); Platelet Count 209 X10*3/uL (160-400); Red Blood Count 3.01 X10*6/uL (4.20-5.50); White Blood Count 10.1 X10*3/uL (4.8-10.8)
--- NOTE | 2024-12-09 07:26 | HO.PM.IMPN ---
Subjective Subjective Date of Service: 12/09/24 Interval History: HDS Hypokalemia resolved Review of Systems Review of Systems: Yes all other systems are reviewed and are negative Physical Exam Exam: Exam: General: AOx3, pleasantly confused Resp: CTA bilaterally CVS: S1, S2, RRR GI: +BS, NT, no distention Neuro: Vision intact, right vision slightly worse, appears to be chronic Psych: Pleasantly confused Vital Signs: Vital Signs: Last Vital Signs Temp 97.9 F 12/08/24 06:58 Pulse 73 12/08/24 06:58 Resp 16 12/08/24 06:58 BP 153/70 H 12/08/24 06:58 Pulse Ox 95 12/08/24 06:58 O2 Del Method Room Air 12/08/24 06:58 O2 Flow Rate 2 12/07/24 15:15 BMI result Body Mass Index 17.4 Objective Data Active Medications Acetaminophen (Acetaminophen 325 Mg Tablet) 650 mg PO Q6H PRN PRN Reason: Pain, Mild 1-3,fever,headache Last Admin: 12/07/24 19:33 Dose: 650 mg Documented By: VIVIAN Albuterol Sulfate (Albuterol Sulfate 90 Mcg 8 Gm Inhaler) 2 puff INHALE Q6H PRN PRN Reason: shortness of breath or wheezing Amlodipine Besylate (Amlodipine Besylate 10 Mg Tablet) 10 mg PO DAILY [facility]; Protocol Apixaban (Apixaban 2.5 Mg Tablet) 2.5 mg PO BID [facility] Last Admin: 12/08/24 20:52 Dose: 2.5 mg Documented By: DANIELE Bisacodyl (Bisacodyl 10 Mg Supp.Rect) 10 mg DE BEDTIME [facility] Last Admin: 12/08/24 20:52 Dose: 10 mg Documented By: DANIELE Calcium Acetate (Calcium Acetate 667 Mg Capsule) 667 mg PO TIDWM [facility] Last Admin: 12/08/24 18:00 Dose: 667 mg Documented By: GALINDO Calcium Carbonate (Calcium Carbonate 750 Mg Tab.Chew) 750 mg PO Q4H PRN PRN Reason: Heartburn Clopidogrel Bisulfate (Clopidogrel Bisulfate 75 Mg Tablet) 75 mg PO DAILY [facility] Last Admin: 12/08/24 09:53 Dose: 75 mg Documented By: GALINDO Duloxetine HCl (Duloxetine Hcl 30 Mg Capsule.) 30 mg PO BID [facility] Last Admin: 12/08/24 20:52 Dose: 30 mg Documented By: DANIELE Famotidine (Famotidine/Pf 20 Mg/2 Ml Vial) 20 mg IVPUSH DAILY [facility] Last Admin: 12/07/24 23:53 Dose: Not Given Documented By: VIVIAN Non-Admin Reason: Patient Condition Contraindication Fluticasone Propionate (Fluticasone Propionate Nasal 16 Gm [place]) 2 spray NOSTRIL-B DAILY PRN PRN Reason: for allergies Gabapentin (Gabapentin 100 Mg Capsule) 100 mg PO BID [facility] Last Admin: 12/08/24 20:52 Dose: 100 mg Documented By: DANIELE Heparin Sodium (Porcine) (Heparin Sodium,Porcine 5,000 Unit/Ml Vial) 5,000 unit INTRACATH ONCE ONE Stop: 12/11/24 11:01 Hydralazine HCl (Hydralazine Hcl 20 Mg/Ml Vial) 10 mg IVPUSH Q6H PRN; Protocol PRN Reason: SBP > 160 Last Admin: 12/09/24 03:06 Dose: 10 mg Documented By: DANIELE Hydralazine HCl (Hydralazine Hcl 50 Mg Tablet) 100 mg PO TID [facility]; Protocol Lamotrigine (Lamotrigine 100 Mg Tablet) 150 mg PO DAILY [facility] Last Admin: 12/08/24 09:48 Dose: 150 mg Documented By: GALINDO Lidocaine (Lidocaine 4 % Patch Adh..Patch) 1 patch TRANSDERMA DAILY [facility]; Protocol Last Admin: 12/08/24 09:54 Dose: 1 patch Documented By: GALINDO Melatonin (Melatonin 3 Mg Tablet) 6 mg PO BEDTIME PRN PRN Reason: Insomnia Memantine (Memantine Hcl 5 Mg Tablet) 5 mg PO BID [facility] Last Admin: 12/08/24 20:51 Dose: 5 mg Documented By: DANIELE Metoclopramide HCl (Metoclopramide Hcl 10 Mg/2 Ml Vial) 5 mg IVPUSH Q4H PRN On Hold: 12/07/24 20:50 PRN Reason: N/V unrelieved by Saul Last Admin: 11/27/24 18:39 Dose: 5 mg Documented By: ARNIE Metoprolol Tartrate (Metoprolol Tartrate 25 Mg Tablet) 25 mg PO BID [facility]; Protocol Last Admin: 12/08/24 20:52 Dose: 25 mg Documented By: DANIELE Multivitamins/Vitamin C (Multivitamin Tablet) 1 tab PO DAILY [facility] Last Admin: 12/08/24 09:52 Dose: 1 tab Documented By: GALINDO Nitroglycerin (Nitroglycerin 0.4 Mg Tab.Subl) 0.4 mg SUBLINGUAL Q5MX3 PRN PRN Reason: Chest Pain Last Admin: 11/28/24 01:51 Dose: 0.4 1000units Documented By: IGOR Ondansetron HCl (Ondansetron Hcl 4 Mg/2 Ml Vial) 4 mg IVPUSH Q4H PRN On Hold: 12/07/24 20:49 Resume: 12/09/24 08:00 PRN Reason: Nausea and Vomiting Last Admin: 11/28/24 11:22 Dose: 4 mg Documented By: CAMILLE Oxycodone HCl (Oxycodone Hcl Immed Release 5 Mg Tablet) 5 mg PO Q4H PRN PRN Reason: Pain, Moderate(Pain Scale 4-6) Last Admin: 12/08/24 20:52 Dose: 5 mg Documented By: DANIELE Polyethylene Glycol (Polyethylene Glycol 3350 17 Gm Powd.Pack) 17 gm PO BID [facility] Last Admin: 12/08/24 20:52 Dose: 17 gm Documented By: DANIELE Potassium Bicarbonate (Potassium Bicarbonate/Cit Ac 25 Meq Tablet.Eff) 25 meq PO DAILY [facility] Last Admin: 12/08/24 10:00 Dose: 25 meq Documented By: GALINDO Pravastatin Sodium (Pravastatin Sodium 40 Mg Tablet) 40 mg PO BEDTIME [facility] Last Admin: 12/08/24 20:52 Dose: 40 mg Documented By: DANIELE Pyridoxine HCl (Pyridoxine Hcl (Vitamin B6) 50 Mg Tablet) 50 mg PO DAILY [facility] Last Admin: 12/08/24 09:52 Dose: 50 mg Documented By: GALINDO Senna (Sennosides 8.6 Mg Tablet) 17.2 mg PO BID [facility] Last Admin: 12/08/24 20:52 Dose: 17.2 mg Documented By: DANIELE Sertraline HCl (Sertraline Hcl 50 Mg Tablet) 50 mg PO DAILY [facility] On Hold: 12/07/24 20:48 Resume: 12/09/24 08:00 Last Admin: 12/07/24 11:19 Dose: Not Given Documented By: LETHA Non-Admin Reason: NPO Sodium Biphosphate/Sodium Phosphate (Sodium Phosphate,[place]-Dibasic 133 Ml Enema) 133 ml DE ONCE PRN PRN Reason: Constipation Sodium Chloride (0.9 % Sodium Chloride Flush 3 Ml Syringe) 3 ml IVFLUSH QSHIFT [facility] Last Admin: 12/08/24 20:55 Dose: 3 ml Documented By: DANIELE Trazodone HCl (Trazodone Hcl 100 Mg Tablet) 100 mg PO BEDTIME [facility] On Hold: 12/07/24 20:49 Last Admin: 12/07/24 19:32 Dose: 100 mg Documented By: VIVIAN Vitamin D (Cholecalciferol (Vitamin D3) 25 Mcg Tablet) 25 mcg PO DAILY [facility] Last Admin: 12/08/24 09:53 Dose: 25 mcg Documented By: GALINDO Labs 12/09/24 06:39 12/09/24 06:39 Labs: Laboratory Results - last 24 hr 12/02/24 12/08/24 12/08/24 01:28 06:28 08:29 MCV MCH MCHC RDW Plt Count MPV Immature Gran % (Auto) Neut % (Auto) Lymph % (Auto) [place] % (Auto) Eos % (Auto) Baso % (Auto) Lymph # (Auto) [place] # (Auto) Eos # (Auto) Baso # (Auto) Abs Immat Gran (auto) Absolute Neuts (auto) Absolute Nucleated RBC Nucleated RBC % (auto) Anion Gap 11 L Troponin I High Sens 77.1 H* D Ur 24 Hour Volume 475 Urine Creatinine 0.23 L Ur Citric Acid 24 Hour see note U Creat (Citric Ac) mg/24h see note 12/09/24 06:39 MCV 93.4 MCH 30.6 MCHC 32.7 RDW 14.5 Plt Count 209 D MPV 9.4 Immature Gran % (Auto) 1.1 H Neut % (Auto) 77.8 H Lymph % (Auto) 11.0 L [place] % (Auto) 7.9 Eos % (Auto) 1.8 Baso % (Auto) 0.4 Lymph # (Auto) 1.1 L [place] # (Auto) 0.8 Eos # (Auto) 0.2 Baso # (Auto) 0.0 Abs Immat Gran (auto) 0.11 H Absolute Neuts (auto) 7.9 Absolute Nucleated RBC 0.020 H Nucleated RBC % (auto) 0.2 Anion Gap Troponin I High Sens Ur 24 Hour Volume Urine Creatinine Ur Citric Acid 24 Hour U Creat (Citric Ac) mg/24h Microbiology Microbiology Results: Microbiology 12/07/24 22:13 Blood Culture - Preliminary Blood - Venous No growth after 24 hours. 12/07/24 22:13 Blood Culture - Preliminary Blood - Venous No growth after 24 hours. Assessment and Plan (1) RONY (acute kidney injury): Status: Acute Plan 79 y/o female, medical history includes Alzheimer's dementia dementia, etOH abuse in remission since 2007, PAD, TIA on dapt, seizures, HTN, HLD, PUD s/p gastrectomy in 70's, recent unexplained weight loss. 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 Overnight s/p permacath placement - pt developed Aflutter, self limited 2/2 cath as well as excessive HD on 12/08/24 Aflutter, self limited 2/2 cath placement (resolved) as well as excessive HD on 12/08/24- Newly diagnosed Mod Pericardial effusion without tamponade physiology - unsure of chronicity Type II IN - peaked trop, no nw EKG changes, AC limited 2/2 chronic comorbidities and risk of pericardial hemorrage with tamponade and HD collapse TTE - - The left ventricular systolic function is normal. The calculated ejection fraction is 63% by biplane method. - Evidence suggests grade II (moderate) diastolic dysfunction. - The left atrium is severely dilated. - There is mild to moderate aortic valve regurgitation. - There is mild mitral valve regurgitation. - There is a moderate circumferential pericardial effusion. There are no definitive echocardiographic findings of tamponade physiology. 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 with IV p.r.n. Subacute dysphagia Alzheimer's dementia-pleasantly confused Right vision abnormalities-subacute Patient passed swallow eval-continue one-to-one supervision feeds , her subacute dysphagia was likely in the setting of gradually progressive dementia-daughter made aware Alzheimer's dementia-gradually worsening Hyponatremia HypoK - repleted daily Likely in the setting of hypovolemic hyponatremia versus SIADH Continue to monitor, Guarded prognosis DVT prophylaxis and AC for new onset Aflutter limited in the setting of thrombocytopenia and CKD 5-SCD boots HCP invoked, daughter would like to continue aggressive measures This note is constructed using voice recognition software. While every effort has been made to ensure accuracy, wiring inspector errors may have been included. Quality Stroke Does the patient have a stroke diagnosis?: No Reason for No Anti-thrombotic by Day Two: Contraindicated (acute anemia ) VTE Prior VTE?: Yes VTE Risk Level:: Medical - moderate - high VTE Device Contraindication: N/A - Device Ordered VTE Drug Contraindication: Treatment Not Tolerated
[2024-12-09 07:27] LABS: Alanine Aminotransferase 30 U/L (0-31); Albumin Level 3.8 g/dL (3.5-5.0); Alkaline Phosphatase 81 U/L (39-117); Anion Gap 13 (12-20); Aspartate Amino Transferase 24 U/L (5-31); Blood Urea Nitrogen 24 mg/dL (9-16); Calcium 8.9 mg/dL (8.4-10.2); Carbon Dioxide 25 mmol/L (22-29); Chloride 101 mmol/L (96-108); Creatinine Clr Calc Pharmacy 9.1; Estimated Glomerular Filt Rate 11; Potassium 4.0 mmol/L (3.3-5.1); Sodium 135 mmol/L (135-145); Total Protein 5.7 g/dL (6.5-8.0)
[2024-12-09 08:53] LABS: Troponin-I High Sensitivity 25.1 ng/L (<3.5-17.0)
[2024-12-09] MEDS: Lidocaine 4 % Patch ADH..PATCH 1 PATCH TRANSDERMA (08:54)
[2024-12-09] MEDS: 0.9 % Sodium Chloride Flush 3 ML SYRINGE IVFLUSH ×3 (08:56→20:40)
[2024-12-09] MEDS: Potassium Bicarbonate/Cit AC 25 MEQ TABLET.EFF PO (08:57)
[2024-12-10] VITALS (10 sets, daily range): BP systolic 105–142; BP diastolic 50–63; PULSE 52–65; RESP 16–18; TEMP 36.1–36.3; O2SAT 94–96
--- NOTE | 2024-12-10 06:58 | HO.PM.IMCN ---
History of Present Illness Data of Consult Primary Care Provider: Espinoza Santiago MD [facility] Medical History DVT (deep venous thrombosis) Depression Dementia Degenerative disease of nervous system, unspecified Multifactorial gait disorder Ataxia Peripheral neuropathy Arthritis Complex partial seizures Vitamin D deficiency TIA (transient ischemic attack) Seizure Alzheimer's dementia Anxiety Insomnia Osteoporosis Anemia Gait abnormality Partial symptomatic epilepsy with complex partial seizures, not intractable, without status epilepticus Asthma Pure hypercholesterolemia Peripheral arterial disease Unsteady gait Neuropathy Benign essential hypertension Alcoholism in remission Exertional dyspnea Functional capacity: independent ambulation Family History Father CVD (cardiovascular disease) Heart disease Hypertension Stroke Mother CVD (cardiovascular disease) Heart disease Asthma Maternal Grandmother No problems noted. Maternal Grandfather No problems noted. Paternal Grandmother No problems noted. Paternal Grandfather No problems noted. Maternal Aunt Tongue cancer Surgical History Status post insertion of nerve stimulator Hx of foot surgery Hx of nasal septoplasty History of esophagogastroduodenoscopy (EGD) H/O colonoscopy History of angioplasty History of partial gastrectomy History of cholecystectomy History of cataract surgery History of hysterectomy History of tubal ligation S/P excision of neuroma Social History Household Members: None Housing: Apartment Housing Other:: senior housing Are you a primary laboratory animal caretaker to a significant other at home: No Do you presently have visiting nurse or other home services: No Alcohol intake: former Comment: NA Patient Tobacco Use Status: Former Tobacco user e-Cigarette/Vaping Use: Never Used Second Hand Smoke Exposure: No Advance Directives Date on File: 06/12/21 service: No Current occupational status: retired Current occupational exposures/hazards: No Cognitive needs: No Hearing needs: No Vision needs: Yes Ebola Risk: Travel/Contact With Anyone From Affected Area/s: No Has Patient Experienced Ebola Symptoms: No Meds Allergies Allergy/AdvReac Type Severity Reaction Status Date / Time morphine (Morphine) Allergy Severe VOMITING/LONGORIA Verified 11/24/24 20:24 LLUCINATION S codeine (Codeine) Allergy Intermediate VOMITING/HALLUCINATIONS, Verified 11/24/24 20:24 nause/extended abdomen latex Allergy Unknown Unknown Verified 11/24/24 20:24 atorvastatin AdvReac Intermediate fever, Verified 11/24/24 20:24 chills, abd pain, numbness capsaicin (CAPSAICIN) AdvReac Intermediate BURNING Verified 11/24/24 20:24 bacitracin Allergy Intermediate redness Uncoded 11/24/24 20:24 and itching adhesives Allergy Mild rash Uncoded 11/24/24 20:24 Active Medications: Current Medications Acetaminophen (Acetaminophen 325 Mg Tablet) 650 mg PO Q6H PRN PRN Reason: Pain, Mild 1-3,fever,headache Last Admin: 12/07/24 19:33 Dose: 650 mg Albuterol Sulfate (Albuterol Sulfate 90 Mcg 8 Gm Inhaler) 2 puff INHALE Q6H PRN PRN Reason: shortness of breath or wheezing Amlodipine Besylate (Amlodipine Besylate 10 Mg Tablet) 10 mg PO DAILY [facility]; Protocol Last Admin: 12/09/24 08:35 Dose: 10 mg Bisacodyl (Bisacodyl 10 Mg Supp.Rect) 10 mg [place] BEDTIME [facility] Last Admin: 12/09/24 20:40 Dose: 10 mg Calcium Acetate (Calcium Acetate 667 Mg Capsule) 667 mg PO TIDWM [facility] Last Admin: 12/09/24 18:23 Dose: 667 mg Calcium Carbonate (Calcium Carbonate 750 Mg Tab.Chew) 750 mg PO Q4H PRN PRN Reason: Heartburn Clopidogrel Bisulfate (Clopidogrel Bisulfate 75 Mg Tablet) 75 mg PO DAILY [facility] Last Admin: 12/09/24 08:31 Dose: 75 mg Duloxetine HCl (Duloxetine Hcl 30 Mg Capsule.Dr) 30 mg PO BID [facility] Last Admin: 12/09/24 20:40 Dose: 30 mg Famotidine (Famotidine/Pf 20 Mg/2 Ml Vial) 20 mg IVPUSH DAILY [facility] Last Admin: 12/09/24 08:35 Dose: 20 mg Fluticasone Propionate (Fluticasone Propionate Nasal 16 Gm [place]) 2 spray NOSTRIL-B DAILY PRN PRN Reason: for allergies Gabapentin (Gabapentin 100 Mg Capsule) 100 mg PO BID [facility] Last Admin: 12/09/24 20:40 Dose: 100 mg Heparin Sodium (Porcine) (Heparin Sodium,Porcine 5,000 Unit/Ml Vial) 5,000 unit INTRACATH ONCE ONE Stop: 12/11/24 11:01 Hydralazine HCl (Hydralazine Hcl 20 Mg/Ml Vial) 10 mg IVPUSH Q6H PRN; Protocol PRN Reason: SBP > 160 Last Admin: 12/09/24 12:39 Dose: 10 mg Hydralazine HCl (Hydralazine Hcl 50 Mg Tablet) 100 mg PO TID [facility]; Protocol Last Admin: 12/09/24 20:40 Dose: 100 mg Lamotrigine (Lamotrigine 100 Mg Tablet) 150 mg PO DAILY [facility] Last Admin: 12/09/24 08:25 Dose: 150 mg Lidocaine (Lidocaine 4 % Patch Adh..Patch) 1 patch TRANSDERMA DAILY [facility]; Protocol Last Admin: 12/09/24 08:54 Dose: 1 patch Melatonin (Melatonin 3 Mg Tablet) 6 mg PO BEDTIME PRN PRN Reason: Insomnia Memantine (Memantine Hcl 5 Mg Tablet) 5 mg PO BID [facility] Last Admin: 12/09/24 20:40 Dose: 5 mg Metoclopramide HCl (Metoclopramide Hcl 10 Mg/2 Ml Vial) 5 mg IVPUSH Q4H PRN On Hold: 12/07/24 20:50 PRN Reason: N/V unrelieved by Saul Last Admin: 11/27/24 18:39 Dose: 5 mg Metoprolol Tartrate (Metoprolol Tartrate 25 Mg Tablet) 25 mg PO BID [facility]; Protocol Last Admin: 12/09/24 20:40 Dose: 25 mg Multivitamins/Vitamin C (Multivitamin Tablet) 1 tab PO DAILY [facility] Last Admin: 12/09/24 08:34 Dose: 1 tab Nitroglycerin (Nitroglycerin 0.4 Mg Tab.Subl) 0.4 mg SUBLINGUAL Q5MX3 PRN PRN Reason: Chest Pain Last Admin: 11/28/24 01:51 Dose: 0.4 1000units Ondansetron HCl (Ondansetron Hcl 4 Mg/2 Ml Vial) 4 mg IVPUSH Q4H PRN PRN Reason: Nausea and Vomiting Last Admin: 11/28/24 11:22 Dose: 4 mg Polyethylene Glycol (Polyethylene Glycol 3350 17 Gm Powd.Pack) 17 gm PO BID [facility] Last Admin: 12/09/24 20:39 Dose: 17 gm Potassium Bicarbonate (Potassium Bicarbonate/Cit Ac 25 Meq Tablet.Eff) 25 meq PO DAILY [facility] Last Admin: 12/09/24 08:57 Dose: 25 meq Pravastatin Sodium (Pravastatin Sodium 40 Mg Tablet) 40 mg PO BEDTIME [facility] Last Admin: 12/09/24 20:40 Dose: 40 mg Pyridoxine HCl (Pyridoxine Hcl (Vitamin B6) 50 Mg Tablet) 50 mg PO DAILY [facility] Last Admin: 12/09/24 08:30 Dose: 50 mg Senna (Sennosides 8.6 Mg Tablet) 17.2 mg PO BID [facility] Last Admin: 12/09/24 20:40 Dose: 17.2 mg Sertraline HCl (Sertraline Hcl 50 Mg Tablet) 50 mg PO DAILY [facility] Last Admin: 12/09/24 09:54 Dose: 50 mg Sodium Biphosphate/Sodium Phosphate (Sodium Phosphate,[place]-Dibasic 133 Ml Enema) 133 ml [place] ONCE PRN PRN Reason: Constipation Sodium Chloride (0.9 % Sodium Chloride Flush 3 Ml Syringe) 3 ml IVFLUSH QSHIFT [facility] Last Admin: 12/09/24 20:40 Dose: 3 ml Trazodone HCl (Trazodone Hcl 100 Mg Tablet) 100 mg PO BEDTIME [facility] Last Admin: 12/09/24 20:40 Dose: 100 mg Vitamin D (Cholecalciferol (Vitamin D3) 25 Mcg Tablet) 25 mcg PO DAILY [facility] Last Admin: 12/09/24 08:25 Dose: 25 mcg Home Medications ?Medication ?Instructions ?Recorded ?Confirmed ?Last Taken ?Type lamotrigine 150 mg tablet 150 mg PO DAILY 11/25/24 11/25/24 11/24/24 09:00 History multivitamin 1 tab PO DAILY 11/25/24 11/25/24 11/24/24 09:00 History Physical Exam Vital Signs and Narrative: Vital Signs: Last Vital Signs Temp 97.4 F 12/10/24 03:54 Pulse 65 12/10/24 03:54 Resp 16 12/10/24 03:54 BP 122/58 L 12/10/24 03:54 Pulse Ox 94 12/10/24 03:54 O2 Del Method Room Air 12/10/24 03:54 O2 Flow Rate 2 12/07/24 15:15 BMI result Body Mass Index 17.4 Results Labs 12/09/24 06:39 12/09/24 06:39 Labs: Laboratory Results - last 24 hr 12/09/24 12/09/24 06:39 07:54 MCV 93.4 MCH 30.6 MCHC 32.7 RDW 14.5 Plt Count 209 D MPV 9.4 Immature Gran % (Auto) 1.1 H Neut % (Auto) 77.8 H Lymph % (Auto) 11.0 L [place] % (Auto) 7.9 Eos % (Auto) 1.8 Baso % (Auto) 0.4 Lymph # (Auto) 1.1 L [place] # (Auto) 0.8 Eos # (Auto) 0.2 Baso # (Auto) 0.0 Abs Immat Gran (auto) 0.11 H Absolute Neuts (auto) 7.9 Absolute Nucleated RBC 0.020 H Nucleated RBC % (auto) 0.2 Anion Gap 13 Estim Creat Clear Calc 9.1 Estimated GFR 11 Random Glucose 122 H Calcium 8.9 Total Bilirubin 0.4 AST 24 ALT 30 Alkaline Phosphatase 81 Troponin I High Sens 25.1 H D Total Protein 5.7 L Albumin 3.8
[2024-12-10 07:15] LABS: MANUAL DIFF FLAG NO
[2024-12-10 07:41] LABS: Hematocrit 28.9 % (37.0-47.0); Hemoglobin 9.5 g/dl (12.0-16.0); Imm Gran Abs Auto 0.07 X10*3/uL (0.00-0.03); Imm Gran Pct Auto 0.9 % (0.0-0.4); Lymphocytes Absolute Auto 1.1 X10*3/uL (1.2-4.9); Mean Corpuscular HGB Conc 32.9 g/dl (31.0-35.0); Mean Corpuscular Hemoglobin 30.7 pg (27.0-33.0); Mean Corpuscular Volume 93.5 fL (80.0-98.0); NRBC Abs Auto 0.000 X10*3/uL (0.0-0.012); NRBC Pct Auto 0.0 /100WBC (0.0-0.2); Platelet Count 223 X10*3/uL (160-400); Red Blood Count 3.09 X10*6/uL (4.20-5.50); White Blood Count 8.0 X10*3/uL (4.8-10.8)
[2024-12-10 08:00] LABS: Alanine Aminotransferase 20 U/L (0-31); Albumin Level 3.3 g/dL (3.5-5.0); Alkaline Phosphatase 76 U/L (39-117); Anion Gap 12 (12-20); Aspartate Amino Transferase 18 U/L (5-31); Blood Urea Nitrogen 30 mg/dL (9-16); Calcium 8.7 mg/dL (8.4-10.2); Carbon Dioxide 26 mmol/L (22-29); Chloride 101 mmol/L (96-108); Creatinine Clr Calc Pharmacy 7.8; Estimated Glomerular Filt Rate 10; Potassium 4.1 mmol/L (3.3-5.1); Sodium 135 mmol/L (135-145); Total Protein 5.1 g/dL (6.5-8.0)
[2024-12-10] MEDS: 0.9 % Sodium Chloride Flush 3 ML SYRINGE IVFLUSH ×3 (09:23→21:28)
[2024-12-10] MEDS: Potassium Bicarbonate/Cit AC 25 MEQ TABLET.EFF PO (09:25)
--- NOTE | 2024-12-10 15:10 | ECG_ITS ---
Test Reason : CP Blood Pressure : */* mmHG Vent. Rate : 51 BPM Atrial Rate : 51 BPM P-R Int : 128 ms QRS Dur : 72 ms QT Int : 496 ms P-R-T Axes : 42 0 52 degrees QTcB Int : 457 ms Sinus bradycardia with sinus arrhythmia Otherwise normal ECG When compared with ECG of 08-Dec-2024 09:26, Questionable change in QRS axis T wave inversion no longer evident in Inferior leads Nonspecific T wave abnormality no longer evident in Anterior leads Referred By: Kaye Costello Electronically Signed By: Hemal Schaefer
--- NOTE | 2024-12-10 17:42 | HO.PM.IMPN ---
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 Reports feeling fine-although apprehensive about dialysis Review of Systems Review of Systems: Yes all other systems are reviewed and are negative Physical Exam Exam: Exam: General: AOx3, pleasantly confused Resp: CTA bilaterally CVS: Bradycardia GI: +BS, NT, no distention Neuro: Vision intact, right vision slightly worse, appears to be chronic Psych: Pleasantly confused Vital Signs: Vital Signs: Last Vital Signs Temp 97.3 F 12/10/24 07:04 Pulse 52 12/10/24 15:44 Resp 18 12/10/24 15:44 BP 105/55 L 12/10/24 17:29 Pulse Ox 96 12/10/24 15:44 O2 Del Method Room Air 12/10/24 15:44 O2 Flow Rate 2 12/07/24 15:15 BMI result Body Mass Index 17.4 Objective Data Active Medications Acetaminophen (Acetaminophen 325 Mg Tablet) 650 mg PO Q6H PRN PRN Reason: Pain, Mild 1-3,fever,headache Last Admin: 12/07/24 19:33 Dose: 650 mg Documented By: VIVIAN Albuterol Sulfate (Albuterol Sulfate 90 Mcg 8 Gm Inhaler) 2 puff INHALE Q6H PRN PRN Reason: shortness of breath or wheezing Amlodipine Besylate (Amlodipine Besylate 10 Mg Tablet) 10 mg PO DAILY [facility]; Protocol Last Admin: 12/10/24 09:27 Dose: 10 mg Documented By: RAMY Bisacodyl (Bisacodyl 10 Mg Supp.Rect) 10 mg [place] BEDTIME SYLVAIN Last Admin: 12/09/24 20:40 Dose: 10 mg Documented By: DANIELE Calcium Acetate (Calcium Acetate 667 Mg Capsule) 667 mg PO TIDWM [facility] Last Admin: 12/10/24 17:25 Dose: 667 mg Documented By: RAMY Calcium Carbonate (Calcium Carbonate 750 Mg Tab.Chew) 750 mg PO Q4H PRN PRN Reason: Heartburn Clopidogrel Bisulfate (Clopidogrel Bisulfate 75 Mg Tablet) 75 mg PO DAILY [facility] Last Admin: 12/10/24 09:25 Dose: 75 mg Documented By: RAMY Duloxetine HCl (Duloxetine Hcl 30 Mg Capsule.) 30 mg PO BID [facility] Last Admin: 12/10/24 09:30 Dose: 30 mg Documented By: RAMY Famotidine (Famotidine/Pf 20 Mg/2 Ml Vial) 20 mg IVPUSH DAILY [facility] Last Admin: 12/10/24 09:31 Dose: 20 mg Documented By: RAMY Fluticasone Propionate (Fluticasone Propionate Nasal 16 Gm [place]) 2 spray NOSTRIL-B DAILY PRN PRN Reason: for allergies Gabapentin (Gabapentin 100 Mg Capsule) 100 mg PO BID [facility] Last Admin: 12/10/24 09:26 Dose: 100 mg Documented By: RAMY Heparin Sodium (Porcine) (Heparin Sodium,Porcine 5,000 Unit/Ml Vial) 5,000 unit INTRACATH ONCE ONE Stop: 12/11/24 11:01 Hydralazine HCl (Hydralazine Hcl 20 Mg/Ml Vial) 10 mg IVPUSH Q6H PRN; Protocol PRN Reason: SBP > 160 Last Admin: 12/09/24 12:39 Dose: 10 mg Documented By: SARAH Hydralazine HCl (Hydralazine Hcl 50 Mg Tablet) 100 mg PO TID [facility]; Protocol Last Admin: 12/10/24 17:29 Dose: Not Given Documented By: RAMY Non-Admin Reason: Decreased Blood Pressure Lamotrigine (Lamotrigine 100 Mg Tablet) 150 mg PO DAILY [facility] Last Admin: 12/10/24 09:26 Dose: 150 mg Documented By: RAMY Lidocaine (Lidocaine 4 % Patch Adh..Patch) 1 patch TRANSDERMA DAILY [facility]; Protocol Last Admin: 12/10/24 09:24 Dose: Not Given Documented By: RAMY Non-Admin Reason: Patient Refused Melatonin (Melatonin 3 Mg Tablet) 6 mg PO BEDTIME PRN PRN Reason: Insomnia Memantine (Memantine Hcl 5 Mg Tablet) 5 mg PO BID [facility] Last Admin: 12/10/24 09:31 Dose: 5 mg Documented By: RAMY Metoclopramide HCl (Metoclopramide Hcl 10 Mg/2 Ml Vial) 5 mg IVPUSH Q4H PRN On Hold: 12/07/24 20:50 PRN Reason: N/V unrelieved by Zofran Last Admin: 11/27/24 18:39 Dose: 5 mg Documented By: ARNIE Metoprolol Tartrate (Metoprolol Tartrate 25 Mg Tablet) 25 mg PO BID [facility]; Protocol Last Admin: 12/10/24 09:30 Dose: 25 mg Documented By: RAMY Multivitamins/Vitamin C (Multivitamin Tablet) 1 tab PO DAILY [facility] Last Admin: 12/10/24 09:26 Dose: 1 tab Documented By: RAMY Nitroglycerin (Nitroglycerin 0.4 Mg Tab.Subl) 0.4 mg SUBLINGUAL Q5MX3 PRN PRN Reason: Chest Pain Last Admin: 11/28/24 01:51 Dose: 0.4 1000units Documented By: IGOR Ondansetron HCl (Ondansetron Hcl 4 Mg/2 Ml Vial) 4 mg IVPUSH Q4H PRN PRN Reason: Nausea and Vomiting Last Admin: 12/10/24 13:26 Dose: 4 mg Documented By: RAMY Polyethylene Glycol (Polyethylene Glycol 3350 17 Gm Powd.Pack) 17 gm PO BID [facility] Last Admin: 12/10/24 09:24 Dose: 17 gm Documented By: RAMY Potassium Bicarbonate (Potassium Bicarbonate/Cit Ac 25 Meq Tablet.Eff) 25 meq PO DAILY [facility] Last Admin: 12/10/24 09:25 Dose: 25 meq Documented By: RAMY Pravastatin Sodium (Pravastatin Sodium 40 Mg Tablet) 40 mg PO BEDTIME [facility] Last Admin: 12/09/24 20:40 Dose: 40 mg Documented By: BELANGRajni Pyridoxine HCl (Pyridoxine Hcl (Vitamin B6) 50 Mg Tablet) 50 mg PO DAILY [facility] Last Admin: 12/10/24 09:25 Dose: 50 mg Documented By: RAMY Senna (Sennosides 8.6 Mg Tablet) 17.2 mg PO BID [facility] Last Admin: 12/10/24 09:30 Dose: 17.2 mg Documented By: RAMY Sertraline HCl (Sertraline Hcl 50 Mg Tablet) 50 mg PO DAILY [facility] Last Admin: 12/10/24 09:26 Dose: 50 mg Documented By: RAMY Sodium Biphosphate/Sodium Phosphate (Sodium Phosphate,[place]-Dibasic 133 Ml Enema) 133 ml NE ONCE PRN PRN Reason: Constipation Sodium Chloride (0.9 % Sodium Chloride Flush 3 Ml Syringe) 3 ml IVFLUSH QSHIFT [facility] Last Admin: 12/10/24 17:30 Dose: 3 ml Documented By: RAMY Trazodone HCl (Trazodone Hcl 100 Mg Tablet) 100 mg PO BEDTIME [facility] Last Admin: 12/09/24 20:40 Dose: 100 mg Documented By: DANIELE Vitamin D (Cholecalciferol (Vitamin D3) 25 Mcg Tablet) 25 mcg PO DAILY [facility] Last Admin: 12/10/24 09:31 Dose: 25 mcg Documented By: RAMY Labs 12/10/24 06:25 12/10/24 06:25 Labs: Laboratory Results - last 24 hr 12/10/24 06:25 MCV 93.5 MCH 30.7 MCHC 32.9 RDW 14.5 Plt Count 223 MPV 9.1 L Immature Gran % (Auto) 0.9 H Neut % (Auto) 70.2 Lymph % (Auto) 14.1 L [place] % (Auto) 9.6 Eos % (Auto) 4.5 H Baso % (Auto) 0.7 Lymph # (Auto) 1.1 L [place] # (Auto) 0.8 Eos # (Auto) 0.4 Baso # (Auto) 0.1 Abs Immat Gran (auto) 0.07 H Absolute Neuts (auto) 5.6 Absolute Nucleated RBC 0.000 Nucleated RBC % (auto) 0.0 Anion Gap 12 Estim Creat Clear Calc 7.8 Estimated GFR 10 Random Glucose 108 Calcium 8.7 Total Bilirubin 0.4 AST 18 ALT 20 Alkaline Phosphatase 76 Total Protein 5.1 L Albumin 3.3 L Microbiology Microbiology Results: Microbiology 12/07/24 22:13 Blood Culture - Preliminary Blood - Venous No growth after 48 hours. 12/07/24 22:13 Blood Culture - Preliminary Blood - Venous No growth after 48 hours. Assessment and Plan (1) RONY (acute kidney injury): Status: Acute Plan 79 y/o female, medical history includes Alzheimer's dementia dementia, etOH abuse in remission since 2007, PAD, TIA on dapt, seizures, HTN, HLD, PUD s/p gastrectomy in 70's, recent unexplained weight loss. 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 Overnight s/p permacath placement - pt developed Aflutter, self limited 2/2 cath as well as excessive HD on 12/08/24 Tomorrow, 12/11/2024-we will get another HD session Aflutter, self limited 2/2 cath placement (resolved) as well as excessive HD on 12/08/24- Newly diagnosed Mod Pericardial effusion without tamponade physiology - unsure of chronicity Type II VA - peaked trop, no nw EKG changes, AC limited 2/2 chronic comorbidities and risk of pericardial hemorrage with tamponade and HD collapse TTE - - The left ventricular systolic function is normal. The calculated ejection fraction is 63% by biplane method. - Evidence suggests grade II (moderate) diastolic dysfunction. - The left atrium is severely dilated. - There is mild to moderate aortic valve regurgitation. - There is mild mitral valve regurgitation. - There is a moderate circumferential pericardial effusion. There are no definitive echocardiographic findings of tamponade physiology. 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 with IV p.r.n. Subacute dysphagia - cognitive decline, pleasantly confused - Patient passed swallow eval-continue one-to-one supervision feeds , her subacute dysphagia was likely in the setting of gradually progressive cognitive decline-daughter made aware Right vision abnormalities-subacute , no stroke despite multiple scans as she does have hypertension Hyponatremia HypoK - repleted daily Likely in the setting of hypovolemic hyponatremia versus SIADH-stable Guarded prognosis DVT prophylaxis and AC for new onset Aflutter limited in the setting of thrombocytopenia and CKD 5-SCD boots HCP invoked, daughter would like to continue aggressive measures This note is constructed using voice recognition software. While every effort has been made to ensure accuracy, dispensing optician apprentice errors may have been included. Quality Stroke Does the patient have a stroke diagnosis?: No Reason for No Anti-thrombotic by Day Two: Contraindicated (acute anemia ) VTE Prior VTE?: Yes VTE Risk Level:: Medical - moderate - high VTE Device Contraindication: N/A - Device Ordered VTE Drug Contraindication: Treatment Not Tolerated
[2024-12-11] VITALS: BP 116/56; PULSE 56; RESP 16; TEMP 36.5; O2SAT 95
[2024-12-11 03:51] VITALS: BP 153/72; PULSE 56; RESP 16; TEMP 36.7; O2SAT 94
[2024-12-11 06:34] LABS: MANUAL DIFF FLAG NO
[2024-12-11 06:35] LABS: Hematocrit 27.1 % (37.0-47.0); Hemoglobin 9.3 g/dl (12.0-16.0); Imm Gran Abs Auto 0.09 X10*3/uL (0.00-0.03); Imm Gran Pct Auto 1.1 % (0.0-0.4); Lymphocytes Absolute Auto 0.8 X10*3/uL (1.2-4.9); Mean Corpuscular HGB Conc 34.3 g/dl (31.0-35.0); Mean Corpuscular Hemoglobin 31.5 pg (27.0-33.0); Mean Corpuscular Volume 91.9 fL (80.0-98.0); NRBC Abs Auto 0.000 X10*3/uL (0.0-0.012); NRBC Pct Auto 0.0 /100WBC (0.0-0.2); Platelet Count 219 X10*3/uL (160-400); Red Blood Count 2.95 X10*6/uL (4.20-5.50); White Blood Count 8.2 X10*3/uL (4.8-10.8)
[2024-12-11 07:07] LABS: Alanine Aminotransferase 27 U/L (0-31); Albumin Level 4.0 g/dL (3.5-5.0); Alkaline Phosphatase 85 U/L (39-117); Anion Gap 15 (12-20); Aspartate Amino Transferase 25 U/L (5-31); Blood Urea Nitrogen 37 mg/dL (9-16); Calcium 9.2 mg/dL (8.4-10.2); Carbon Dioxide 22 mmol/L (22-29); Chloride 97 mmol/L (96-108); Creatinine Clr Calc Pharmacy 7.4; Estimated Glomerular Filt Rate 9; Potassium 4.2 mmol/L (3.3-5.1); Sodium 130 mmol/L (135-145); Total Protein 6.0 g/dL (6.5-8.0)
--- NOTE | 2024-12-11 07:23 | HO.PM.IMPN ---
Subjective Subjective Date of Service: 12/11/24 Physical Exam Vital Signs: Vital Signs: Last Vital Signs Temp 98.0 F 12/11/24 03:51 Pulse 56 12/11/24 03:51 Resp 16 12/11/24 03:51 BP 153/72 H 12/11/24 03:51 Pulse Ox 94 12/11/24 03:51 O2 Del Method Room Air 12/11/24 03:51 O2 Flow Rate 2 12/07/24 15:15 BMI result Body Mass Index 17.4 Objective Data Active Medications Acetaminophen (Acetaminophen 325 Mg Tablet) 650 mg PO Q6H PRN PRN Reason: Pain, Mild 1-3,fever,headache Last Admin: 12/07/24 19:33 Dose: 650 mg Documented By: VIVIAN Albuterol Sulfate (Albuterol Sulfate 90 Mcg 8 Gm Inhaler) 2 puff INHALE Q6H PRN PRN Reason: shortness of breath or wheezing Amlodipine Besylate (Amlodipine Besylate 10 Mg Tablet) 10 mg PO DAILY [facility]; Protocol Last Admin: 12/10/24 09:27 Dose: 10 mg Documented By: RAMY Bisacodyl (Bisacodyl 10 Mg Supp.Rect) 10 mg [place] BEDTIME [facility] Last Admin: 12/10/24 21:31 Dose: Not Given Documented By: MARIANA Non-Admin Reason: loose BM today Calcium Acetate (Calcium Acetate 667 Mg Capsule) 667 mg PO TIDWM [facility] Last Admin: 12/10/24 17:25 Dose: 667 mg Documented By: RAMY Calcium Carbonate (Calcium Carbonate 750 Mg Tab.Chew) 750 mg PO Q4H PRN PRN Reason: Heartburn Clopidogrel Bisulfate (Clopidogrel Bisulfate 75 Mg Tablet) 75 mg PO DAILY [facility] Last Admin: 12/10/24 09:25 Dose: 75 mg Documented By: RAMY Duloxetine HCl (Duloxetine Hcl 30 Mg Capsule.Dr) 30 mg PO BID [facility] Last Admin: 12/10/24 21:29 Dose: 30 mg Documented By: MARIANA Famotidine (Famotidine/Pf 20 Mg/2 Ml Vial) 20 mg IVPUSH DAILY [facility] Last Admin: 12/10/24 09:31 Dose: 20 mg Documented By: RAMY Fluticasone Propionate (Fluticasone Propionate Nasal 16 Gm [place]) 2 spray NOSTRIL-B DAILY PRN PRN Reason: for allergies Gabapentin (Gabapentin 100 Mg Capsule) 100 mg PO BID [facility] Last Admin: 12/10/24 21:29 Dose: 100 mg Documented By: MARIANA Heparin Sodium (Porcine) (Heparin Sodium,Porcine 5,000 Unit/Ml Vial) 5,000 unit INTRACATH ONCE ONE Stop: 12/11/24 11:01 Hydralazine HCl (Hydralazine Hcl 20 Mg/Ml Vial) 10 mg IVPUSH Q6H PRN; Protocol PRN Reason: SBP > 160 Last Admin: 12/09/24 12:39 Dose: 10 mg Documented By: SARAH Hydralazine HCl (Hydralazine Hcl 50 Mg Tablet) 100 mg PO TID [facility]; Protocol Last Admin: 12/10/24 21:28 Dose: 100 mg Documented By: MARIANA Lamotrigine (Lamotrigine 100 Mg Tablet) 150 mg PO DAILY [facility] Last Admin: 12/10/24 09:26 Dose: 150 mg Documented By: RAMY Lidocaine (Lidocaine 4 % Patch Adh..Patch) 1 patch TRANSDERMA DAILY [facility]; Protocol Last Admin: 12/10/24 09:24 Dose: Not Given Documented By: RAMY Non-Admin Reason: Patient Refused Melatonin (Melatonin 3 Mg Tablet) 6 mg PO BEDTIME PRN PRN Reason: Insomnia Last Admin: 12/11/24 00:21 Dose: 6 mg Documented By: MARIANA Memantine (Memantine Hcl 5 Mg Tablet) 5 mg PO BID [facility] Last Admin: 12/10/24 21:30 Dose: 5 mg Documented By: MARIANA Metoclopramide HCl (Metoclopramide Hcl 10 Mg/2 Ml Vial) 5 mg IVPUSH Q4H PRN On Hold: 12/07/24 20:50 PRN Reason: N/V unrelieved by Saul Last Admin: 11/27/24 18:39 Dose: 5 mg Documented By: ARNIE Metoprolol Tartrate (Metoprolol Tartrate 25 Mg Tablet) 25 mg PO BID [facility]; Protocol Last Admin: 12/10/24 21:31 Dose: Not Given Documented By: MARIANA Non-Admin Reason: heart rate 57 Multivitamins/Vitamin C (Multivitamin Tablet) 1 tab PO DAILY [facility] Last Admin: 12/10/24 09:26 Dose: 1 tab Documented By: RAMY Nitroglycerin (Nitroglycerin 0.4 Mg Tab.Subl) 0.4 mg SUBLINGUAL Q5MX3 PRN PRN Reason: Chest Pain Last Admin: 11/28/24 01:51 Dose: 0.4 1000units Documented By: IGOR Ondansetron HCl (Ondansetron Hcl 4 Mg/2 Ml Vial) 4 mg IVPUSH Q4H PRN PRN Reason: Nausea and Vomiting Last Admin: 12/10/24 13:26 Dose: 4 mg Documented By: RAMY Polyethylene Glycol (Polyethylene Glycol 3350 17 Gm Powd.Pack) 17 gm PO BID [facility] Last Admin: 12/10/24 21:30 Dose: Not Given Documented By: MARIANA Non-Admin Reason: loose BM today Potassium Bicarbonate (Potassium Bicarbonate/Cit Ac 25 Meq Tablet.Eff) 25 meq PO DAILY [facility] Last Admin: 12/10/24 09:25 Dose: 25 meq Documented By: RAMY Pravastatin Sodium (Pravastatin Sodium 40 Mg Tablet) 40 mg PO BEDTIME [facility] Last Admin: 12/10/24 21:29 Dose: 40 mg Documented By: MARIANA Pyridoxine HCl (Pyridoxine Hcl (Vitamin B6) 50 Mg Tablet) 50 mg PO DAILY [facility] Last Admin: 12/10/24 09:25 Dose: 50 mg Documented By: RAMY Senna (Sennosides 8.6 Mg Tablet) 17.2 mg PO BID [facility] Last Admin: 12/10/24 21:31 Dose: Not Given Documented By: MARIANA Non-Admin Reason: loose BM today Sertraline HCl (Sertraline Hcl 50 Mg Tablet) 50 mg PO DAILY [facility] Last Admin: 12/10/24 09:26 Dose: 50 mg Documented By: RAMY Sodium Biphosphate/Sodium Phosphate (Sodium Phosphate,[place]-Dibasic 133 Ml Enema) 133 ml [place] ONCE PRN PRN Reason: Constipation Sodium Chloride (0.9 % Sodium Chloride Flush 3 Ml Syringe) 3 ml IVFLUSH QSHIFT [facility] Last Admin: 12/10/24 21:28 Dose: 3 ml Documented By: MARIANA Trazodone HCl (Trazodone Hcl 100 Mg Tablet) 100 mg PO BEDTIME [facility] Last Admin: 12/10/24 21:30 Dose: 100 mg Documented By: MARIANA Vitamin D (Cholecalciferol (Vitamin D3) 25 Mcg Tablet) 25 mcg PO DAILY [facility] Last Admin: 12/10/24 09:31 Dose: 25 mcg Documented By: RAMY Labs 12/11/24 06:13 12/11/24 06:13 Labs: Laboratory Results - last 24 hr 12/10/24 12/11/24 06:25 06:13 MCV 93.5 91.9 MCH 30.7 31.5 MCHC 32.9 34.3 RDW 14.5 14.5 Plt Count 223 219 MPV 9.1 L 9.1 L Immature Gran % (Auto) 0.9 H 1.1 H Neut % (Auto) 70.2 78.3 H Lymph % (Auto) 14.1 L 10.3 L [place] % (Auto) 9.6 8.1 Eos % (Auto) 4.5 H 1.7 Baso % (Auto) 0.7 0.5 Lymph # (Auto) 1.1 L 0.8 L [place] # (Auto) 0.8 0.7 Eos # (Auto) 0.4 0.1 Baso # (Auto) 0.1 0.0 Abs Immat Gran (auto) 0.07 H 0.09 H Absolute Neuts (auto) 5.6 6.4 Absolute Nucleated RBC 0.000 0.000 Nucleated RBC % (auto) 0.0 0.0 Anion Gap 12 15 Estim Creat Clear Calc 7.8 7.4 Estimated GFR 10 9 Random Glucose 108 118 H Calcium 8.7 9.2 Total Bilirubin 0.4 0.4 AST 18 25 ALT 20 27 Alkaline Phosphatase 76 85 Total Protein 5.1 L 6.0 L Albumin 3.3 L 4.0 Quality Stroke Does the patient have a stroke diagnosis?: No Reason for No Anti-thrombotic by Day Two: Contraindicated (acute anemia ) VTE Prior VTE?: Yes VTE Risk Level:: Medical - moderate - high VTE Device Contraindication: N/A - Device Ordered VTE Drug Contraindication: Treatment Not Tolerated
[2024-12-11 07:35] VITALS: BP 149/60; PULSE 61; RESP 18; TEMP 36.2; O2SAT 94
[2024-12-11] MEDS: Lidocaine 4 % Patch ADH..PATCH 1 PATCH TRANSDERMA (09:06)
[2024-12-11] MEDS: Potassium Bicarbonate/Cit AC 25 MEQ TABLET.EFF PO (09:06)
[2024-12-11] MEDS: 0.9 % Sodium Chloride Flush 3 ML SYRINGE IVFLUSH ×2 (09:07→16:20)
--- NOTE | 2024-12-11 10:19 | P.PNNPD_ITS ---
Subjective Subjective Date of Service: 12/11/24 This patient was seen during dialysis. Interval history: Acute renal failure (likely ESRD), on dialysis MWF, HD initiated 12/05. renal biopsy- oxalate nephropathy Tunneled HD line placed 12/07 Patient developed atrial flutter on evening of 12/07, so discharge last Wednesday was delayed. Patient denies new complaints/concerns, other than not liking goign to her dialysis sessions. No events noted. Physical Exam Vital Signs: Vital Signs: Last Vital Signs Temp 97.1 F 12/11/24 07:35 Pulse 61 12/11/24 07:35 Resp 18 12/11/24 07:35 BP 149/60 H 12/11/24 07:35 Pulse Ox 94 12/11/24 07:35 O2 Del Method Room Air 12/11/24 07:35 O2 Flow Rate 2 12/07/24 15:15 BMI result Body Mass Index 17.4 Const: General: no acute distress, alert and awake Resp: Effort & Inspection: normal respiratory effort and able to speak in complete sentences Auscultation: clear to auscultation bilaterally Cardio: Rate: regular rate Rhythm: regular rhythm Heart sounds: S1 normal heart sound present and S2 normal heart sound present GI: Palpation (GI): Soft to palpation and nontender Skin: Rashes: no rashes Extrem: General: Yes pedal edema (pitting +1 bilateral pedal edema) Assessment & Plan Assessment and plan (1) RONY (acute kidney injury): Status: Acute Plan Patient with acute renal failure secondary to oxalate nephropathy, likely ESRD, will need to continue to evaluate with time. last session of dialysis yesterday, 12/07. Due for dialysis today. permcath in place without erythema, swelling, drainage. Hemoglobin 9.3, 10,000 units of procrit administered 12/07. potassium 4.2- pt was switched to 3K bath due to hypokalemia after last HD session. Ca 9.2. phos 5.1- no need for binders at this time, will continue to monitor. Patient given information on low oxalate foods, continue potassium citrate. Will remove some fluid today given patient remains hypertensive, and has signs of fluid overload with LE edema and hyponatremia. Patient has an outpatient dialysis slot at [facility] in [address] [place] [address] (phone #[phone]). Sling Operator is Randy. start date Wednesday, 12/13. She will be MWF second shift- arrival time is 11:30 a.m. for her first visit. payroll and benefits manager consult placed to arrange transportation to first visit for outpatient dialysis- [facility] will arrange transportation after first visit. Discussed with Dr Hawkins. Time Spent With Patient Time: Total time managing care of this patient today ____ minutes. Procedures Date of Service Date of Service: 12/11/24
--- NOTE | 2024-12-11 11:30 | HO.WOUND ---
Wound Consult: Initial 79yr old admitted to [facility] on11/25/24 - See progress notes and H&P for detailed history. Wound consult placed for redness to coccyx. Patient agreeable to assessment and photo documentation. Patient in bed, turned to side for assessment Coccyx/buttocks Etiology: mild blanchable redness not over bony prominence Wound Bed: intact Drainage / Odor: none Marci wound: ? No Induration, Fluctuance or Warmth noted Pain: none Goals of Treatment: ? prevention, turns, low air loss in place , may apply foam for comfort/prevention Recommendations: 1. Turn and Reposition every 2 hours and as needed for patient comfort. Use pillows or wedges to support off loading positions. 2. Off Load all bony prominences with use of pillows and heel boots if needed. Apply Preventative foams where needed. 3. Monitor for incontinence and moisture control, use barrier creams when needed for prevention and treatment. 4. Provide adequate and supplemental nutrition. 5. Order or Continue low air loss mattress. 6. When applicable maintain blood glucose levels per Providers order. Re-consult wound care Nurse for wound deterioration or wound changes.
[2024-12-11 11:33] VITALS: BP 92/52; PULSE 57; RESP 18; TEMP 36.2; O2SAT 96
--- NOTE | 2024-12-11 11:40 | MHC.CLN ---
F/U PO INTAKE SLIGHTLY IMPROVED CONSUMING 50-100% DIET RX: 2GM NA LOW K+, LOW PHOS NOTED SERUM NA 130 PATIENT CONTINUES WITH HEMODIALYSIS RE-STARTING ENSURE CLEAR TID (RENAL FRIENDLY) PROVIDES 720 KCALS, 24 G PROTEIN MONITOR PO INTAKE AND ENCOURAGE SUPPLEMENTS
--- NOTE | 2024-12-11 15:04 | PM.DS ---
DS: Providers Provider Date of Service: 12/11/24 Date of admission: 11/25/24 00:30 Date of discharge: 12/11/24 Primary care physician: Espinoza Santiago MD Consults: 11/25/24 01:35 Consult to Gastroenterology Routine Consulting Provider: Dean Chambers Reason for consultation: ? GIB pt requiring tranfusion with now RONY, sig hx of GI issues, colonscopy Consult to Nephrology Routine Consulting Provider: [facility] Reason for consultation: RONY decline in renal fx after last colonoscopy this year 11/25/24 04:23 Consult to Urology Routine Consulting Provider: [facility] Reason for consultation: B nephrolithiais with RONY Has provider been notified: No 11/27/24 18:29 Consult to Hematology / Oncology Routine Consulting Provider: [facility]Hematology Reason for consultation: suspicious RUL nodule; renal failure- paraneoplastic? TMA? 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 PermCath was placed on 12/07/2024. Lasix CI 2/2 HD/Renal failure req dialysis- thankfully nonhypoxic on RA , hence not on that on DC Renal diet-low K and phos Patient developed new onset atrial flutter, self-limited in the setting of permacath placement - pt developed Aflutter, self limited 2/2 cath as well as excessive HD on 12/08/24 Aflutter, self limited 2/2 cath placement (resolved) as well as excessive HD on 12/08/24 Mod Pericardial circumferential effusion without tamponade physiology - appears chronic - no indication given no tamponade physiology- will need to follow up with outpatient Cardiology Type II NH - peaked trop, no nw EKG changes, AC limited 2/2 chronic comorbidities and risk of pericardial hemorrage with tamponade and HD collapse TTE - - The left ventricular systolic function is normal. The calculated ejection fraction is 63% by biplane method. - Evidence suggests grade II (moderate) diastolic dysfunction. - The left atrium is severely dilated. - There is mild to moderate aortic valve regurgitation. - There is mild mitral valve regurgitation. - There is a moderate circumferential pericardial effusion. There are no definitive echocardiographic findings of tamponade physiology. HTN Likely secondary to CKD, suboptimally controlled JULIANA and ARB contraindicated, we started her on amlodipine and hydralazine p.o. with IV p.r.n. & metoprolol Subacute dysphagia - cognitive decline, pleasantly confused - Patient passed swallow eval-continue one-to-one supervision feeds , her subacute dysphagia was likely in the setting of gradually progressive cognitive decline-daughter made aware Right vision abnormalities-subacute , no stroke despite multiple scans as she does have hypertension Hyponatremia HypoK - repleted daily Likely in the setting of hypovolemic hyponatremia versus SIADH-stable Guarded prognosis DVT prophylaxis and AC for new onset Aflutter limited in the setting of thrombocytopenia and CKD 5-SCD boots HCP invoked, daughter would like to continue aggressive measures HDS at the time of DC This note is constructed using voice recognition software. While every effort has been made to ensure accuracy, agricultural services director errors may have been included. Time spent discussing smoking cessation with patient: more than 10 minutes Time Attestation Discharge Coordination Time (in mins): 35 Quality: Safe Use of Opioids Does Pt have an Active Cancer Diagnosis on the Problem List?: No Quality: Stroke Does the patient have a stroke diagnosis?: No Physical Exam Exam: Exam: General: AOx3, pleasantly confused Resp: CTA bilaterally CVS: Bradycardia GI: +BS, NT, no distention Neuro: Vision intact, right vision slightly worse, appears to be chronic Psych: Pleasantly confused Vital Signs: Vital Signs: Last Vital Signs Temp 97.1 F 12/11/24 11:33 Pulse 57 12/11/24 11:33 Resp 18 12/11/24 11:33 BP 92/52 L 12/11/24 11:33 Pulse Ox 96 12/11/24 11:33 O2 Del Method Room Air 12/11/24 11:33 O2 Flow Rate 2 12/07/24 15:15 BMI result Body Mass Index 17.4 DS: Data Data Completed and Pending Completed studies during hospitalization [Text1]: Pending at discharge 11/29/24 11:15 Surgical Path [Surgical] [PTH] Routine Labs on day of discharge: Laboratory Results - last 24 hr 12/11/24 06:13 WBC 8.2 RBC 2.95 L Hgb 9.3 L Hct 27.1 L MCV 91.9 MCH 31.5 MCHC 34.3 RDW 14.5 Plt Count 219 MPV 9.1 L Immature Gran % (Auto) 1.1 H Neut % (Auto) 78.3 H Lymph % (Auto) 10.3 L [place] % (Auto) 8.1 Eos % (Auto) 1.7 Baso % (Auto) 0.5 Lymph # (Auto) 0.8 L [place] # (Auto) 0.7 Eos # (Auto) 0.1 Baso # (Auto) 0.0 Abs Immat Gran (auto) 0.09 H Absolute Neuts (auto) 6.4 Absolute Nucleated RBC 0.000 Nucleated RBC % (auto) 0.0 Sodium 130 L Potassium 4.2 Chloride 97 Carbon Dioxide 22 Anion Gap 15 BUN 37 H Creatinine 4.70 H* Estim Creat Clear Calc 7.4 Estimated GFR 9 Random Glucose 118 H Calcium 9.2 Total Bilirubin 0.4 AST 25 ALT 27 Alkaline Phosphatase 85 Total Protein 6.0 L Albumin 4.0 Preliminary micro results at discharge 12/07/24 22:13 Blood Culture - Preliminary Blood - Venous No growth after 48 hours. 12/07/24 22:13 Blood Culture - Preliminary Blood - Venous No growth after 48 hours. 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 Referrals: [facility] [Outside] - 1 Week Espinoza Santiago MD [Primary Care Provider, Internal Medicine] - 1 Week Discharge Medications: New pravastatin 40 mg Tablet 40 mg PO BEDTIME 30 Days Qty: 30 3RF amlodipine 10 mg Tablet 10 mg PO DAILY 30 Days Qty: 30 3RF Protocol: Hold for SBP< HOLD for SBP < : 90 nitroglycerin [Nitrostat] 0.4 mg Tablet, Sublingual 0.4 mg sublingual Q5MX3 PRN (Reason: Chest Pain) 30 Days Qty: 30 3RF hydralazine 50 mg Tablet 100 mg PO TID 30 Days Qty: 180 0RF Protocol: Hold for SBP< HOLD for SBP < : 120 gabapentin 100 mg Capsule 100 mg PO BID 30 Days Qty: 60 3RF Klor-Con/EF 25 mEq Tablet, Effervescent 25 meq PO DAILY Qty: 10 0RF metoprolol tartrate 25 mg Tablet 25 mg PO BID 30 Days Qty: 60 3RF Protocol: Hold for SBP/HR < HOLD for SBP < : 90 HOLD for HR < : 60 calcium acetate(phosphat bind) 667 mg Capsule 667 mg PO TIDWM Qty: 60 0RF sennosides [Senna Lax] 8.6 mg Tablet 17.2 mg PO BID 30 Days Qty: 120 3RF lidocaine [Lidocaine Pain Relief] 4 % Adhesive Patch,Medicated 1 patch transdermal DAILY 30 Days Qty: 7 0RF Protocol: Apply to: Apply to: back polyethylene glycol 3350 17 gram Powder In Packet 17 g PO BID 30 Days Qty: 60 3RF Antacid Ext Str (calcium carb) 300 mg (750 mg) Tablet,Chewable 2.5 tab PO Q4H PRN (Reason: Heartburn) 30 Days Qty: 30 0RF melatonin 3 mg Tablet 6 mg PO BEDTIME PRN (Reason: Insomnia) 30 Days Qty: 30 3RF bisacodyl [Gentle Laxative (bisacodyl)] 10 mg Suppository 10 mg AL BEDTIME 30 Days Qty: 30 0RF pyridoxine (vitamin B6) 50 mg Tablet 50 mg PO DAILY 30 Days Qty: 30 0RF famotidine (PF) 20 mg/2 mL Solution 20 mg IVPUSH DAILY 30 Days Qty: 60 0RF Continued (DME) Aerochamber MV Spacer See Rx Instructions .Route Qty: 10 0RF Rx Instructions: Use with respiratory inhaler as directed fluticasone propionate 50 mcg/actuation spray,suspension 2 spray intranasal DAILY PRN (Reason: for allergies) Qty: 48 1RF aspirin 81 mg tablet,delayed release (DR/EC) 81 mg PO DAILY 90 Days Qty: 90 3RF clonazepam 1 mg tablet 1 mg PO BEDTIME PRN (Reason: anxiety) 30 Days Qty: 30 0RF clonazepam 0.5 mg tablet 0.5 mg PO BID PRN (Reason: anxiety) 30 Days Qty: 60 0RF sertraline 50 mg tablet 50 mg PO DAILY 90 Days Qty: 90 1RF trazodone 100 mg tablet 100 mg PO DAILY 90 Days Qty: 90 0RF albuterol sulfate 90 mcg/actuation HFA aerosol inhaler 2 puff PO Q6H PRN (Reason: shortness of breath or wheezing) Qty: 8.5 2RF simvastatin 20 mg tablet 20 mg PO BEDTIME Qty: 90 0RF clopidogrel 75 mg tablet 75 mg PO DAILY Qty: 90 0RF duloxetine 30 mg capsule,delayed release(DR/EC) 30 mg PO BID Qty: 180 0RF multivitamin Tablet 1 tab PO DAILY lamotrigine 150 mg tablet 150 mg PO DAILY cholecalciferol (vitamin D3) 25 mcg (1,000 unit) capsule 25 mcg PO DAILY 90 Days Qty: 90 3RF memantine 5 mg tablet 5 mg PO BID 90 Days Qty: 180 0RF Discharge Orders: Discharge Order (Routine); Ordered 12/11/24 Ordered By: Kaye Costello Diet: Low salt diet Activity on Discharge: As tolerated Stand Alone Forms: Patient Portal Discharge page Print Language: Lao Care Plan Goals: Rehab Cognitive improvement PT OT Health Concerns: Hemodialysis Rehab Cognitive improvement PTOT Plan of Treatment: See above medical management Hypertension new medications have been added Patient now requires hemodialysis and is placed on renal diet and low phos calcium, K diet Assessment: See above
[2024-12-11 15:05] VITALS: BP 136/80
[2024-12-11 15:43] VITALS: BP 109/64; PULSE 64; RESP 18; TEMP 36.5
--- NOTE | 2024-12-11 16:55 | MHC.CM.PN ---
PT MEDICALLY CLEARED FOR DC TO [facility] FOR STR[facility]HD AND WILL START AT [facility] FOR BLS TRANSPORT AT 6:30PM.
--- NOTE | 2024-12-13 08:40 | MHC.CM.PN ---
POST DC NOTE: TUNNEL CATH REPORT SIGNED AND COPY FAXED TO KEKE NAYLOR VIA [employer] TODAY 12/13 AT 0800AM, CM ATTEMPTED TO CONTACT LIAMARY BYRNE AT 8:05AM [phone], NO ANSWER AND DETAILED MESSAGE LEFT.
--- NOTE | 2024-12-13 14:18 | MHC.CM.PN ---
POST DC NOTE: REFERRAL PACED TO [facility] PER DTR/HCP Cipriano'S REQUEST.
== END 2024-12-11 19:21 | disposition skilled nursing facility (03) | DRG 673 ==
LOC: HO.ED 21:44 → HO.EDOVER 11-25 00:47 → HO.IMC 11-25 19:39
PROVIDERS: Emergency Medicine; Family Medicine; Hospitalist; Internal Medicine Critical Care Medicine; Nurse Practitioner Family; Physician Assistant; Radiology Diagnostic Radiology; Admitting Provider Internal Medicine; Emergency Provider Emergency Medicine; PCP Internal Medicine; Visit Provider Student in an Organized Health Care Education/Training Program
PROC: 0TB03ZX Excision of Right Kidney, Percutaneous Approach, Diagnostic (ICD-10-PCS; principal; 2024-11-29 10:30)
PROC: 02HV33Z Insertion of Infusion Device into Superior Vena Cava, Percutaneous Approach (ICD-10-PCS; principal; 2024-12-04 15:30)
DX: N17.9 Acute kidney failure, unspecified (principal); I21.A1 Myocardial infarction type 2; E44.0 Moderate protein-calorie malnutrition; Z68.1 Body mass index [BMI] 19.9 or less, adult; I12.0 Hypertensive chronic kidney disease with stage 5 chronic kidney disease or end stage renal disease; I48.92 Unspecified atrial flutter; E87.21 Acute metabolic acidosis; E87.1 Hypo-osmolality and hyponatremia; E87.5 Hyperkalemia; N18.6 End stage renal disease; G30.9 Alzheimer's disease, unspecified; D63.1 Anemia in chronic kidney disease; F02.80 Dementia in other diseases classified elsewhere, unspecified severity, without behavioral disturbance, psychotic disturbance, mood disturbance, and anxiety; G40.909 Epilepsy, unspecified, not intractable, without status epilepticus; Z86.73 Personal history of transient ischemic attack (TIA), and cerebral infarction without residual deficits; N20.0 Calculus of kidney; E86.1 Hypovolemia; F39 Unspecified mood [affective] disorder; K59.00 Constipation, unspecified; Z99.2 Dependence on renal dialysis; R13.10 Dysphagia, unspecified; I08.0 Rheumatic disorders of both mitral and aortic valves; T50.995A Adverse effect of other drugs, medicaments and biological substances, initial encounter; D69.6 Thrombocytopenia, unspecified; F10.21 Alcohol dependence, in remission; R94.31 Abnormal electrocardiogram [ECG] [EKG]; E83.39 Other disorders of phosphorus metabolism; Z87.11 Personal history of peptic ulcer disease; Z86.718 Personal history of other venous thrombosis and embolism; Z79.82 Long term (current) use of aspirin; Z79.02 Long term (current) use of antithrombotics/antiplatelets; Z79.899 Other long term (current) drug therapy
CPT/HCPCS: 36415; 36556; 36558; 50200; 70450; 71046; 71250; 74176; 77012; 80048; 80053; 80076; 81001; 82272; 82306; 82340; 82507; 82570; 82575; 82668; 83010; 83540; 83605; 83615; 83735; 83935; 83945; 83970; 84100; 84156; 84300; 84484; 84550; 84560; 85025; 85027; 85045; 85335; 85384; 85397; 85610; 85730; 85999; 86160; 86162; 86480; 86704; 86706; 86850; 86900; 86901; 86923; 87040; 87086; 87340; 87449; 88300; 88305; 88313; 88346; 88348; 88350; 90999; 92526; 92610; 93005; 93306; 93975; 97110; 97112; 97116; 97162; 97530; 99152; 99285; C1750; C1752; C1769; J0360; J1200; J1308; J1644; J2003; J2250; J2405; J2470; J2597; J2765; J3010; J7120; P9016; Q5106; Q9957

== ENCOUNTER → 2024-11-24 21:22 | Outpatient (BNV) | payer MEDICARE, SELFPAY | PROVIDERS: Admitting Provider Internal Medicine; Emergency Provider Emergency Medicine; PCP Internal Medicine; Visit Provider Internal Medicine Cardiovascular Disease | DX: R79.9 Abnormal finding of blood chemistry, unspecified (principal) | CPT/HCPCS: 93010 ==

== ENCOUNTER → 2024-11-24 21:22 | Outpatient (BNV) | payer MEDICARE, SELFPAY | PROVIDERS: Emergency Provider Emergency Medicine; PCP Internal Medicine; Visit Provider Radiology Neuroradiology | DX: N20.0 Calculus of kidney (principal) | CPT/HCPCS: 74176 ==

== ENCOUNTER 2024-11-25 00:30 | Outpatient (BNV) | payer MEDICARE, SELFPAY | END 2024-12-10 15:10 | PROVIDERS: Admitting Provider Internal Medicine; Emergency Provider Emergency Medicine; PCP Internal Medicine; Visit Provider Internal Medicine Cardiovascular Disease | DX: R00.1 Bradycardia, unspecified (principal) | CPT/HCPCS: 93010 ==

== ENCOUNTER 2024-11-25 00:30 | Outpatient (BNV) | payer MEDICARE, SELFPAY | END 2024-11-28 01:29 | PROVIDERS: Admitting Provider Internal Medicine; Emergency Provider Emergency Medicine; PCP Internal Medicine; Visit Provider Internal Medicine Cardiovascular Disease | DX: R94.31 Abnormal electrocardiogram [ECG] [EKG] (principal); R07.9 Chest pain, unspecified | CPT/HCPCS: 93010 ==

== ENCOUNTER 2024-11-25 00:30 | Outpatient (BNV) | payer MEDICARE, SELFPAY | END 2024-12-08 07:00 | PROVIDERS: Admitting Provider Internal Medicine; Emergency Provider Emergency Medicine; PCP Internal Medicine; Visit Provider Internal Medicine | DX: I35.8 Other nonrheumatic aortic valve disorders (principal); I31.39 Other pericardial effusion (noninflammatory) | CPT/HCPCS: 93306 ==

== ENCOUNTER 2024-11-25 00:30 | Outpatient (BNV) | payer MEDICARE, SELFPAY | END 2024-11-25 09:04 | PROVIDERS: Admitting Provider Internal Medicine; Emergency Provider Emergency Medicine; PCP Internal Medicine; Visit Provider Radiology Diagnostic Radiology | DX: R91.1 Solitary pulmonary nodule (principal); J90 Pleural effusion, not elsewhere classified; I31.9 Disease of pericardium, unspecified | CPT/HCPCS: 71250 ==

== ENCOUNTER 2024-11-25 00:30 | Outpatient (BNV) | payer MEDICARE, SELFPAY | END 2024-12-02 14:00 | PROVIDERS: Admitting Provider Internal Medicine; Emergency Provider Emergency Medicine; PCP Internal Medicine; Visit Provider Radiology Diagnostic Radiology | DX: J90 Pleural effusion, not elsewhere classified (principal) | CPT/HCPCS: 71046 ==

== ENCOUNTER 2024-11-25 00:30 | Outpatient (BNV) | payer MEDICARE, SELFPAY | END 2024-12-04 16:20 | PROVIDERS: Admitting Provider Internal Medicine; Emergency Provider Emergency Medicine; PCP Internal Medicine; Visit Provider Radiology Diagnostic Radiology | DX: N17.9 Acute kidney failure, unspecified (principal) | CPT/HCPCS: 36558; 76937 ==

== ENCOUNTER 2024-11-25 00:30 | Outpatient (BNV) | payer MEDICARE, SELFPAY | END 2024-12-07 20:35 | PROVIDERS: Admitting Provider Internal Medicine; Emergency Provider Emergency Medicine; PCP Internal Medicine; Visit Provider Internal Medicine | DX: I49.1 Atrial premature depolarization (principal); I48.92 Unspecified atrial flutter; I44.30 Unspecified atrioventricular block; I45.81 Long QT syndrome | CPT/HCPCS: 93010 ==

== ENCOUNTER 2024-11-25 00:30 | Outpatient (BNV) | payer MEDICARE, SELFPAY | END 2024-11-29 10:30 | PROVIDERS: Admitting Provider Internal Medicine; Emergency Provider Emergency Medicine; PCP Internal Medicine; Visit Provider Radiology Diagnostic Radiology | DX: N20.0 Calculus of kidney (principal) | CPT/HCPCS: 50200; 77012 ==

== ENCOUNTER 2024-11-25 00:30 | Outpatient (BNV) | payer MEDICARE, SELFPAY | END 2024-11-27 14:58 | PROVIDERS: Admitting Provider Internal Medicine; Emergency Provider Emergency Medicine; PCP Internal Medicine; Visit Provider Radiology Diagnostic Radiology | DX: G31.09 Other frontotemporal neurocognitive disorder (principal) | CPT/HCPCS: 70450 ==

== ENCOUNTER 2024-11-25 00:30 | Outpatient (BNV) | payer MEDICARE, SELFPAY | END 2024-12-07 14:32 | PROVIDERS: Admitting Provider Internal Medicine; Emergency Provider Emergency Medicine; PCP Internal Medicine | DX: N18.6 End stage renal disease (principal); Z99.2 Dependence on renal dialysis | CPT/HCPCS: 36558; 77001 ==

== ENCOUNTER 2024-11-25 00:30 | Outpatient (BNV) | payer MEDICARE, SELFPAY | END 2024-12-03 10:50 | PROVIDERS: Admitting Provider Internal Medicine; Emergency Provider Emergency Medicine; PCP Internal Medicine; Visit Provider Specialist | DX: G31.89 Other specified degenerative diseases of nervous system (principal) | CPT/HCPCS: 70450 ==

== ENCOUNTER → 2024-11-25 00:30 | Outpatient (BNV) | payer MEDICARE, SELFPAY | PROVIDERS: Admitting Provider Internal Medicine; Emergency Provider Emergency Medicine; PCP Internal Medicine; Visit Provider Nurse Practitioner Family | DX: N17.9 Acute kidney failure, unspecified (principal) | CPT/HCPCS: 99222; 99232 ==

== ENCOUNTER → 2024-11-25 00:30 | Outpatient (BNV) | payer MEDICARE, SELFPAY | PROVIDERS: Admitting Provider Internal Medicine; Emergency Provider Emergency Medicine; PCP Internal Medicine; Visit Provider Urology | DX: N20.0 Calculus of kidney (principal) | CPT/HCPCS: 99222 ==

== ENCOUNTER → 2024-11-25 00:30 | Outpatient (BNV) | payer MEDICARE, SELFPAY | PROVIDERS: Admitting Provider Internal Medicine; Emergency Provider Emergency Medicine; PCP Internal Medicine; Visit Provider Internal Medicine | DX: R91.8 Other nonspecific abnormal finding of lung field (principal); N17.9 Acute kidney failure, unspecified | CPT/HCPCS: 99222 ==

== ENCOUNTER → 2024-11-25 00:30 | Outpatient (BNV) | payer MEDICARE, SELFPAY | PROVIDERS: Admitting Provider Internal Medicine; Emergency Provider Emergency Medicine; PCP Internal Medicine; Visit Provider Nurse Practitioner Family | DX: R91.8 Other nonspecific abnormal finding of lung field (principal); N17.9 Acute kidney failure, unspecified | CPT/HCPCS: 99223; 99232; 99499 ==

== ENCOUNTER 2024-12-13 03:11 | Emergency (ER) | payer MEDICARE, SELFPAY ==
--- OUTSIDE RECORDS SUMMARY | 2023-08-18 04:30 | XMS_ITS ---
Author Organization [facility] Address [address] [place] [address] Care Team Providers Care Fire Lieutenant Name Role Phone Jack HYLTON, [place] Primary Care Provider Unashwetha ilsharron Umesh Ellsworth Unavailable [phone] BISHNU MCMULLEN Unavailable Unavailable REASON FOR VISIT screening,hx polyps Problems Problem Type SNOMED Code ICD Code Onset Dates Problem Status W/U Status Risk Notes Problem History of polyp of colon (situation) (459841058) Personal history of colonic polyps (Z86.010) Active confirmed Problem Diverticular disease of colon (724021813) Diverticulosis of large intestine without perforation or abscess without bleeding (K57.30) Active confirmed Encounters Encounter Location Date Provider Diagnosis [facility] Outpatient [address] [place], [place] [phone] 08/18/2023 Umesh Ellsworth Colon polyps K63.5 ; [...] * LEIA NERIOB: 6 (79 yo F)Acc No.[id number]:08/18/2023 COLON WITH MAC Patient: KRISSY FRAZIER Provider: Yolanda Ellsworth MD :1945 A ge:78 Y S ex:Female Date:08/18/2023 Address:[address] [place], [place] [phone] Pcp:Espinoza Santiago MD Subjective: * Chief Complaints: [...] 5385 LESION REMOVAL COLONOSCOPY, Modifiers: PT , 32454 COLONOSCOPE, SUBMUCOUS INJ, Modifiers: PT , 28365 COLONOSCOPY AND BIOPSY, Modifiers: 59 , PT, [...] 08/18/2023 Generated for Cynthia mckeon/Michael/Elyssaitting on: 0 12/13/2024 03:24 AM EDT
--- OUTSIDE RECORDS SUMMARY | 2023-12-31 03:30 | XMS_ITS ---
Author Organization [facility] Address [address] [place] [address] Care Team Providers Care Tire Sorter Name Role Phone Jack HYLTON, [place] Primary Care Provider Unava Umesh Rodriguez Unavailable [phone] BISHNU MCMULLEN Unavailable Unavailable REASON FOR VISIT screening,hx polyps Encounters Encounter Location Date Provider Diagnosis [facility] Outpatient [address] [place], [place] [phone] 12/31/2023 Umesh Ellsworth Colon cancer scree rose [...] * MARILIN NERIISDOB: 6 (79 yo F)Acc No.[id number]:12/31/2023 COLON WITH MAC Patient: KRISSY FRAZIER Provider: Yolanda Ellsworth MD :1945 A ge:78 Y S ex:Female Date:12/31/2023 Address:[address] [place] [address] [place] Pcp:Espinoza Santiago MD Subjective: * Chief Complaints: * 1 . Screening,hx polyps. * Medical History: Objective: * Vitals: Assessment: * Assessment: 1. C olon cancer screening - Z12.11 (Primary) 2 . C olon polyps - K63.5? 3. D iverticulosis of large intestine without perforation or abscess without bleeding - K57.30 4 . O ther hemorrhoids - K64.8 Plan: * Treatment: * Procedure Codes: 4 5385 LESION REMOVAL COLONOSCOPY, Modifiers: PT , 70738 COLONOSCOPY AND BIOPSY, Modifiers: PT , 23034 COLONOSCOPE, SUBMUCOUS INJ, Modifiers: 59 , PT, 0529F INTRVL 3+YRS PTS CLNSCP DOCD, Modifiers: 1P , 0528F RCMND FLW-UP 10 YRS DOCD, Modifiers: 8P * * The named appointment provid er may or may not be the originator of this progress note, and it is not deemed complete until electronically signed by the appointment provider. Sign off status: Pending * Provider: Yolanda Ellsworth MD Date: 1 Generated for Cynthia mckeon/Michael/Kiransmitting on: 0 12/13/2024 03:24 AM EDT
--- OUTSIDE RECORDS SUMMARY | 2024-06-21 12:20 | XMS_ITS ---
Author Organization [facility] Address [address] [place] [phone] Care Team Providers Care Faucets Assembler Name Role Phone Jack HYLTON, Espinoza Primary Care Provider Umesh Stephenson Unavailable [phone] BISHNU MCMULLEN Unavailable Unavailable REASON FOR VISIT Patient presents today for a F/U after removal of flat polyp Encounters Encounter Location Date Provider Diagnosis [facility] [address] [place] [phone] 06/21/2024 Umesh Ellsworth Plan Of Treatment No Information Progress Notes * LEIA NERIOB: 6 (79 yo F)Acc No.[id number]:06/21/2024 Progress Notes Patient: KRISSY FRAZIER Provider: Yolanda Ellsworth MD :1945 A ge:79 Y S ex:Female Date:06/21/2024 Address:[address] [place], [place] [id number] Pcp:Espinoza Santiago MD Subjective: * Chief Complaints: [...] 06/21/2024 Generated for Cynthia mckeon/Michael/eTransmitting on: 0 12/13/2024 03:24 AM EDT
[2024-12-13 03:14] VITALS: BP 108/48; BP 142/88; PULSE 72; PULSE 85; RESP 16; TEMP 36.6; O2SAT 96; O2SAT 97; BMI 18.9
--- OUTSIDE RECORDS SUMMARY | 2024-12-13 03:24 | XMS_ITS | Patient Health Record ---
Author Organization [facility] Address [address] [place] [address] Care Team Providers Care Warehouse Specialist Name Role Phone Eron Santiago MDneth Primary Care Provider Ike Wolfe Unavailable [phone] Allergies Allergen (clinical drug ingredient) Drug/Non Drug [...] primary osteoarthritis of the ankle and/or foot (029283084) Primary osteoarthrit is, right ankle and foot (M19.071) Active confirmed Problem Localized, primary osteoarthritis of the ankle and/or foot (663197746) Primary osteoarthrit is, left ankle and foot (M19.072) Active confirmed Problem Acquired hammer toe of right foot (8119881742910966) Other hammer toe(s) (acquired), right foot (M20.41) Active confirmed Problem Acquired hammer toe of left foot (0356067410563870) Other hammer toe(s) (acquired), left foot (M20.42) [...] X ray : Foot, right 3V 08/02/2017 72187, [id number]/INJECT, JOINT/BURSA 0 08/30/2017 02645, [id number]/INJECT, JOINT/BURSA 1 2017 71370- Unna Boot 11/24/2017 Insurance Providers Payer Name Payer Address Payer Phone Subscriber Number Group Number Insured Name Patient Relationship to Insured Coverage Start Date Coverage End Date Medicare National Govt Sv[employer] [address] [place] [address] [id number] Cary Davis Self - patient is the insured 1 [employer] Blue [employer] [address] [place] [address] [id number] Cary Davis Self - patient is the [...] Blot Clots in the legs 0 03/2017 [facility] dizziness, nausea, drive hieves, deh ydration 09/27/2017 [facility] L3rd toe 01/14/2018 [facility] leg pain blood clots / Afib 20 21
--- OUTSIDE RECORDS SUMMARY | 2024-12-13 03:25 | XMS_ITS | Clinical Summary ---
Author Organization [facility] Address [address] [place] [address] Phone Care Team Providers Care Computing Consultant Name Role Phone Espinoza Santiago MD Primary Care Provider [phone] Allergies Active Allergy Reactions Criticality Noted Date [...] propionate (FLONASE) 50 mcg/actuation nasal spray 1 [place] by Each Nare route daily. Active clopidogreL [...] Take 1 Tab by mouth daily. Active gmdsv-zj-9-dha-e um-tvdwgny-tks (MegaRed Diana-3 Krill Oil) 404-49-07-50 mg capsule Take 1 Cap by mouth [...] back pain 01/18/2024 PVD (peripheral vascular disease) ([facility]/HCC V24) 01/18/2024 Varicose veins of bilateral lower extremities wi th pain 01/18/2024 Encounters Date Type Department Care Team Description 10/12/2024 Telephone Vascular Surgery - [place] [address] [place] [phone] Maritza Webber PA from Last 3 Months Surgical History Surgery Date Site/Laterality Comments ANGIOPLASTY Bilateral PROCEDURE: HISTORICAL ANGIOPLASTY OTHER SURGICAL HISTORY 09/01/2022 PROCEDURE: OR SLCTV CATHJ 3RD+ ORD SLCTV ABDL PEL/LXTR BRNCH OTHER SURGICAL HISTORY 09/01/2022 PROCEDURE: OR SLCTV CATHJ EA 2ND+ ORD ABDL PEL/LXTR ART BRNCH OTHER SURGICAL HISTORY 09/01/2022 PROCEDURE: X-RAY EXAM OF ARM/LEG ARTERIES OTHER SURGICAL HISTORY 09/01/2022 PROCEDURE: X-RAY EXAM OF PELVIC ARTERIES OTHER SURGICAL HISTORY 09/01/2022 PROCEDURE: ULTRASOUND GUIDANCE FOR VASCULAR AC Medical History Medical History Date Comments PVD (peripheral vascular dis ease) (CMS/HCC V24) DX:PVD (peripheral vascular disease) ([facility]) Varicose veins of bilateral lower extremities with [...] 05/18/2025 1:30 PM EST Ancillary Procedure [facility] [address] [place] [phone] 06/28/2025 3:00 PM EDT Office Visit Vascular Surgery - [place] [address] [place] [phone] Maritza Webber, JAYDE [address] [place] [phone] Health Maintenance Due Date Last Done [...] Documents on File Type Date Recorded Patient Speech Therapist Expl anatformerly [facility] Health Care Decision (hx) 06/16/2020 GENE JACKSON DIRECTIVE Care Teams Computing Consultant Relationship Specialty Start Date End Date Espinoza Santiago MD [address] [place] [address] [address] [place] PCP - General Internal Medicine 02/15/13
--- OUTSIDE RECORDS SUMMARY | 2024-12-13 03:25 | XMS_ITS | Patient Health Record ---
Author Organization [facility] Address [address] [place] [address] Care Team Providers Care Cd Mixer Name Role Phone Espinoza Santiago MD Primary Care Provider Umesh Stephenson Unavailable [phone] MCMULLENBISHNU VILLAVICENCIO Unavailable Unavailable Allergies Allergen (clinical [...] (Not yet reviewed by provider) Interpretation: Performing Lab:[facility], [address] [place] [phone] Notes/Report: CT abdomen pelvis w con (Not yet reviewed by provider) Interpretation: Performing Lab: Notes/Report: [address] [address] [address] Scan Report Signed Patient: Krissy Neri MR#: [id number] 80 : 1945 Acct:[id number] Age/Sex: 78 / F ADM Date: 02/07/24 Loc: HO.CT Attending Dr: Umesh Ellsworth MD Ordering Physician: Umesh Ellsworth MD Date of Service: 02/07/24 Procedure(s): CT abdomen pelvis w IV con Accession Number(s): [id number] cc: Espinoza Santiago MD; Umesh Ellswroth MD EXAMINATION: CT ABDOMEN AND PELVIS WITH [...] in the subcutaneous tissues cephalad beyond the [id number]-tk-xnio LYMPH NODES: No retroperitoneal lymphadenopathy. VASCULAR: Calcific [...] 02/07/24 1552 DD/ 1116 TD/TT: 02/07/24 1128 Reports Analyst: SS Reason For Referral No Information Medications [...] Status Risk Notes Problem Colon cancer screening (018588819) Colon cancer screening (Z12.11) Active confirmed Problem 033664826 Encounter for screening for malignant neoplasm of colon (Z12.11) Active confirmed Problem 151352017 History of adenomatous polyp of colon (Z86.010) Active confirmed Problem History of polyp of colon (situation) (811173325) Personal history of colonic polyps (Z86.010) Active confirmed Problem Diverticular disease of colon (524328172) Diverticulosis of large intestine without perforation or abscess without bleeding (K57.30) Active confirmed Problem Screening for malignant neoplasm of rectum (832832552) Encounter for screening for malignant neoplasm of rectum (Z12.12) Active confirmed Problem Anemia (698575159) Anemia (D64.9) Active confirmed Problem 30615337 Other iron deficiency anemia (D50.8) Active confirmed Problem 52208395 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) Active confirmed Problem 85467608803535 Long-term curren t use of anticonvulsant (Z79.899) Active confirmed Problem Adenoma of transverse colon (362781070) Adenoma of transverse colon (D12.3) Active confirmed Problem 720035099 H/O long-term (current) use of anticoagulants (Z92.29) Active confirmed Encounters Encounter Location Date Provider Diagnosis [facility] [address] [place] [phone] 12/31/2023 Umesh Ellsworth Colon cancer screeni ng Z12.11 ; Colon polyps K63.5 ; Diverticulosis of large intestine without perforation or abscess without bleeding K57.30 and Other hemorrhoids K64.8 [facility] [address] [place] [phone] 01/03/2024 Umesh Ellsworth Adenoma of transvers e colon D12.3 [facility] [address] [place] [phone] 02/11/2024 Umesh Ellsworth [facility] [address] [place] [phone] 05/04/2024 Umesh Ellsworth [facility] [address] [place] [phone] 06/20/2024 Umesh Ellsworth Assessments Encounter Date Diagnosis [...] Date MEDICARE OF [place] [address] [facility] [place] [address] [id number] ALISHASONSINDHU KRISSY Self - patient is the insured [employer] ATTN CLAIMS [address] [place] [address] [id number] ALISHASONSINDHU KRISSY Self - patient is the insured Medical (General) History Medical History History ICD Code Asthma Anxiety/depression Alcohol abuse---abstinenet 2010 Denies PR,DM,CVA,renal disease IBS--negative duodenal and c olonic biopsies in 06/2011--no microscopic colitis, no celiac disease Tubular adenomas removed in 2002, 2003, and 2005---negative colonoscopy in 06/2011 GERD--EGD in 06/2011--no esophagitis, nor mal duodenl biopsies TIA in 2013--transient left-sided weakne ss HTN PAD Varicose veins TIA /w seizure DVT's-needed thrombectomies-sees Dr. Cecily taylor at [facility] Chronic anemia in relation to her previo [...] surgery-bone spurs--both feet NEVRO Senza Spine Stimulator [phone]//[phone] for pain put in by Dr. Sebastian 01/2023
--- NOTE | 2024-12-13 03:27 | PC.NURSE ---
I spoke with Cecilia, RN at [facility], states pt was unable to be given her night tight clonazepam de to stock issues, once they received the medication pt was too altered and aggressive to give her the PO for of the medication. provider at [facility] gave the order to send pt out to us and be evaluated for altered mental status. Pt currently in room calm and cooperative A&) x 2.
[2024-12-13 03:28] VITALS: BP 108/49; PULSE 72; RESP 20; O2SAT 96
[2024-12-13 04:24] LABS: Hematocrit 26.3 % (37.0-47.0); Hemoglobin 8.7 g/dl (12.0-16.0); Imm Gran Abs Auto 0.08 X10*3/uL (0.00-0.03); Imm Gran Pct Auto 0.7 % (0.0-0.4); Lymphocytes Absolute Auto 0.8 X10*3/uL (1.2-4.9); MANUAL DIFF FLAG NO; Mean Corpuscular HGB Conc 33.1 g/dl (31.0-35.0); Mean Corpuscular Hemoglobin 31.3 pg (27.0-33.0); Mean Corpuscular Volume 94.6 fL (80.0-98.0); NRBC Abs Auto 0.000 X10*3/uL (0.0-0.012); NRBC Pct Auto 0.0 /100WBC (0.0-0.2); Platelet Count 230 X10*3/uL (160-400); Red Blood Count 2.78 X10*6/uL (4.20-5.50); White Blood Count 12.0 X10*3/uL (4.8-10.8)
[2024-12-13 04:25] VITALS: BP 108/49; PULSE 72; RESP 20; TEMP 36.8; O2SAT 96
--- NOTE | 2024-12-13 04:28 | PC.NURSE ---
pt medicated per MAR, took PO meds with no issues. Pt labs where drawn and urine sent down to lab.
[2024-12-13 04:32] LABS: Appearance Urine Clear; Glucose Urine UA 100 mg/dL (Negative); PH 8.0 (5.0-9.0); Specific Gravity - Urine 1.010 (1.005-1.025); UMIC TRIGGER UACC YES
[2024-12-13 04:35] LABS: UACC Culture Trigger YES
[2024-12-13 04:44] LABS: Alanine Aminotransferase 24 U/L (0-31); Albumin Level 3.9 g/dL (3.5-5.0); Alkaline Phosphatase 84 U/L (39-117); Anion Gap 17 (12-20); Aspartate Amino Transferase 33 U/L (5-31); Blood Urea Nitrogen 28 mg/dL (9-16); Calcium 9.3 mg/dL (8.4-10.2); Carbon Dioxide 27 mmol/L (22-29); Chloride 102 mmol/L (96-108); Creatinine Clr Calc Pharmacy 7.8; Estimated Glomerular Filt Rate 9; Potassium 4.6 mmol/L (3.3-5.1); Sodium 141 mmol/L (135-145); Total Protein 5.8 g/dL (6.5-8.0)
--- NOTE | 2024-12-13 04:44 | PC.NURSE ---
lab called for critical creatnine of 4.56
--- NOTE | 2024-12-13 06:01 | ED.AMS ---
HPI - Altered Mental Status General Chief Complaint: Altered Mental Status Stated Complaint: INCREASED AGITATION Time Seen by Provider: 12/13/24 04:10 Source: EMS, RN notes reviewed and old records reviewed Mode of arrival: EMS Limitations: altered mental status (Dementia) History of Present Illness ED Provider: Dr. Lizzy Patel HPI narrative: 79-year-old female with history of dementia, ESRD on dialysis Wednesday presenting with agitation from the senior living where she is currently a resident. Reportedly missed her evening dose of Klonopin and has been agitated since that time. Staff at the senior living was reportedly worried about being able to give her oral medications and called the on-call doctor who asked her to come to the emergency department to be evaluated for altered mental status. No reported trauma. Patient is actually rather responsive, able to answer questions and tells me that she has no pain or discomfort at this time. She is willing to take medications. Unable to obtain further information at this time. Related Data Home Medications ?Medication ?Instructions ?Recorded ?Confirmed lamotrigine 150 mg tablet 150 mg PO DAILY 11/25/24 11/25/24 multivitamin 1 tab PO DAILY 11/25/24 11/25/24 Previous Rx's ?Medication ?Instructions ?Recorded inhalational spacing device #10 ea 06/10/22 (Aerochamber MV spacer) fluticasone propionate 50 2 spray intranasal DAILY PRN for 11/28/23 mcg/actuation nasal allergies #48 mL spray,suspension aspirin 81 mg tablet,delayed 81 mg PO DAILY 90 days #90 tabs 11/29/23 release clonazepam 0.5 mg tablet 0.5 mg PO BID PRN anxiety 30 days 11/29/23 #60 tabs clonazepam 1 mg tablet 1 mg PO BEDTIME PRN anxiety 30 11/29/23 days #30 tabs sertraline 50 mg tablet 50 mg PO DAILY 90 days #90 tabs 11/29/23 trazodone 100 mg tablet 100 mg PO DAILY 90 days #90 tabs 11/29/23 cholecalciferol (vitamin D3) 25 25 mcg PO DAILY 90 days #90 caps 03/06/24 mcg (1,000 unit) capsule albuterol sulfate 90 mcg/actuation 2 puff PO Q6H PRN shortness of 04/19/24 aerosol inhaler breath or wheezing #8.5 ea simvastatin 20 mg tablet 20 mg PO BEDTIME #90 tabs 07/11/24 memantine 5 mg tablet 5 mg PO BID 90 days #180 tabs 09/27/24 clopidogrel 75 mg tablet 75 mg PO DAILY #90 tabs 11/01/24 duloxetine 30 mg capsule,delayed 30 mg PO BID #180 caps 11/01/24 release amlodipine 10 mg tablet 10 mg PO DAILY 30 days #30 tabs 12/11/24 bisacodyl 10 mg rectal suppository 10 mg AK BEDTIME 30 days #30 ea 12/11/24 (Gentle Laxative (bisacodyl)) calcium acetate(phosphat bind) 667 667 mg PO TIDWM #60 caps 12/11/24 mg capsule calcium carbonate (Antacid Ext Str 2.5 tab PO Q4H PRN Heartburn 30 12/11/24 (calcium carb)) days #30 tabs famotidine (PF) 20 mg/2 mL 20 mg (2 mL) IVPUSH DAILY 30 days 12/11/24 intravenous solution #60 mL gabapentin 100 mg capsule 100 mg PO BID 30 days #60 caps 12/11/24 hydralazine 50 mg tablet 100 mg PO TID 30 days #180 tabs 12/11/24 lidocaine 4 % topical patch 1 patch transdermal DAILY 30 days 12/11/24 (Lidocaine Pain Relief) #7 ea melatonin 3 mg tablet 6 mg (2 x 3 mg) PO BEDTIME PRN 12/11/24 Insomnia 30 days #30 tabs metoprolol tartrate 25 mg tablet 25 mg PO BID 30 days #60 tabs 12/11/24 nitroglycerin 0.4 mg sublingual 0.4 mg sublingual Q5MX3 PRN Chest 12/11/24 tablet (Nitrostat) Pain 30 days #30 tabs polyethylene glycol 3350 17 gram 17 g PO BID 30 days #60 ea 12/11/24 oral powder packet potassium bicarbonate-citric acid 25 meq PO DAILY #10 ea 12/11/24 25 mEq effervescent tablet (Klor-Con/EF) pravastatin 40 mg tablet 40 mg PO BEDTIME 30 days #30 tabs 12/11/24 pyridoxine (vitamin B6) 50 mg 50 mg PO DAILY 30 days #30 tabs 12/11/24 tablet sennosides 8.6 mg tablet (Senna 17.2 mg (2 x 8.6 mg) PO BID 30 12/11/24 Lax) days #120 tabs Allergies Allergy/AdvReac Type Severity Reaction Status Date / Time morphine (Morphine) Allergy Severe VOMITING/LONGORIA Verified 12/13/24 03:14 LLUCINATION S codeine (Codeine) Allergy Intermediate VOMITING/HALLUCINATIONS, Verified 12/13/24 03:14 nause/extended abdomen latex Allergy Unknown Unknown Verified 12/13/24 03:14 atorvastatin AdvReac Intermediate fever, Verified 12/13/24 03:14 chills, abd pain, numbness capsaicin (CAPSAICIN) AdvReac Intermediate BURNING Verified 12/13/24 03:14 bacitracin Allergy Intermediate redness Uncoded 12/13/24 03:14 and itching adhesives Allergy Mild rash Uncoded 12/13/24 03:14 Review of Systems Review of Systems: As per HPI, full review of systems performed and negative but for the above mentioned pertinent positives and negatives. PMFSH Past Medical History Medical History DVT (deep venous thrombosis) Depression Dementia Degenerative disease of nervous system, unspecified Multifactorial gait disorder Ataxia Peripheral neuropathy Arthritis Complex partial seizures Vitamin D deficiency TIA (transient ischemic attack) Seizure Alzheimer's dementia Anxiety Insomnia Osteoporosis Anemia Gait abnormality Partial symptomatic epilepsy with complex partial seizures, not intractable, without status epilepticus Asthma Pure hypercholesterolemia Peripheral arterial disease Unsteady gait Neuropathy Benign essential hypertension Alcoholism in remission Exertional dyspnea Surgical History Status post insertion of nerve stimulator Hx of foot surgery Hx of nasal septoplasty History of esophagogastroduodenoscopy (EGD) H/O colonoscopy History of angioplasty History of partial gastrectomy History of cholecystectomy History of cataract surgery History of hysterectomy History of tubal ligation S/P excision of neuroma Family History Family History Father CVD (cardiovascular disease) Heart disease Hypertension Stroke Mother CVD (cardiovascular disease) Heart disease Asthma Maternal Grandmother No problems noted. Maternal Grandfather No problems noted. Paternal Grandmother No problems noted. Paternal Grandfather No problems noted. Maternal Aunt Tongue cancer Social History Social History Household Members: None Housing: Apartment Housing Other:: senior housing Are you a primary health care marketing specialist to a significant other at home: No Do you presently have visiting nurse or other home services: No Alcohol intake: former Comment: PT removes her alarm when in chair Patient Tobacco Use Status: Former Tobacco user e-Cigarette/Vaping Use: Never Used Second Hand Smoke Exposure: No Advance Directives: Yes Advance Directives on File: Yes Advance Directives Date on File: 06/12/21 service: No Current occupational status: retired Current occupational exposures/hazards: No Cognitive needs: No Hearing needs: No Vision needs: Yes Physical Exam ED Exam Exam: GENERAL: Chronically ill-appearing, conversant, no acute distress. SKIN: Normal skin color for ethnicity, warm, dry, no rashes noted. HEENT: Normocephalic, atraumatic, no stridor, posterior oropharynx nonerythematous, EOMI. NECK: Soft, supple, full ROM, midline structures nontender, no step-offs, no deformities, no lymphadenopathy. CHEST: Heart regular rate and rhythm, no murmurs, symmetric chest rise and fall, dialysis catheter in place in the right chest wall. PULMONARY: Clear to auscultation bilaterally, no labored breathing, no wheezes/rhales/ rhonchi. ABDOMINAL: Soft, nondistended, nontender, positive bowel sounds in all quadrants. : Deferred. MUSCULOSKELETAL: Normal tone, full range of motion, no deformities, no peripheral edema. NEURO: Alert and oriented to person, CN II through XII intact, no focal neurologic deficits. PSYCHIATRIC: Flat affect, fluid speech, appropriate demeanor. Vital Signs: Vital Signs - 24 hr 12/13/24 03:14 12/13/24 03:28 12/13/24 04:25 Temperature 97.9 F 98.3 F Pulse Rate 72 72 72 Respiratory Rate 16 20 20 Blood Pressure 108/48 L 108/49 L 108/49 L Pulse Oximetry 96 96 96 Oxygen Delivery Method Room Air Room Air Room Air BMI result Body Mass Index 18.9 Medications Administered Discontinued Medications Generic Name Dose Route Start Last Admin Trade Name Freq PRN Reason Stop Dose Admin Clonazepam 1 mg 12/13/24 04:10 12/13/24 04:25 Clonazepam 1 Mg Tablet PO 12/13/24 04:11 1 mg ONCE ONE Administration Medical Decision Making Medical Decision Making [facility] Narrative: Patient presents today with a chief complaint of altered mental status. Differential diagnosis for AMS is incredibly broad and includes infection, intracranial process such as hemorrhage, stroke or mass, electrolyte abnormality, hypercarbia, hypoxia, toxic encephalopathy, among many others. Broad-based workup was initiated to further evaluate the etiology of patient's symptoms based on the above exam and history. 5:37 AM 12/13/2024 (Dr. Lizzy Patel, D.O.) Workup today has been reassuring. No infection in the urine. Her renal function is as expected for ESRD and her need for dialysis today. Patient is now sleeping after getting her 1 mg dose of Klonopin which she takes at bedtime. We will transfer back to the senior living. Discharged in stable condition. Differential Diagnosis Differential Diagnoses: The differential diagnosis associated with the presentation includes (As above) Admission/Observation Consideration of admission/observation: Escalation of care including admission/observation considered Lab Data [facility] Lab Attestation statement: I reviewed the patient's lab results. 12/13/24 04:15 12/13/24 04:15 Labs: Lab Results 12/13/24 12/13/24 Range/Units 04:15 04:27 WBC 12.0 H (4.8-10.8) X10*3/uL RBC 2.78 L (4.20-5.50) X10*6/uL Hgb 8.7 L (12.0-16.0) g/dl Hct 26.3 L (37.0-47.0) % MCV 94.6 (80.0-98.0) fL MCH 31.3 (27.0-33.0) pg MCHC 33.1 (31.0-35.0) g/dl RDW 16.0 (11.0-16.0) % Plt Count 230 (160-400) X10*3/uL MPV 8.7 L (9.4-12.3) fL Immature Gran % (Auto) 0.7 H (0.0-0.4) % Neut % (Auto) 85.1 H (45-73) % Lymph % (Auto) 7.0 L (20-40) % [place] % (Auto) 6.7 (2-11) % Eos % (Auto) 0.2 (0-4) % Baso % (Auto) 0.3 (0-2) % Lymph # (Auto) 0.8 L (1.2-4.9) X10*3/uL [place] # (Auto) 0.8 (0.1-1.2) X10*3/uL Eos # (Auto) 0.0 (0.0-0.4) X10*3/uL Baso # (Auto) 0.0 (0.0-0.2) X10*3/uL Abs Immat Gran (auto) 0.08 H (0.00-0.03) X10*3/uL Absolute Neuts (auto) 10.3 H (2.0-8.3) x10*3/uL Absolute Nucleated RBC 0.000 (0.0-0.012) X10*3/uL Nucleated RBC % (auto) 0.0 (0.0-0.2) /100WBC Sodium 141 (135-145) mmol/L Potassium 4.6 (3.3-5.1) mmol/L Chloride 102 (96-108) mmol/L Carbon Dioxide 27 (22-29) mmol/L Anion Gap 17 (12-20) BUN 28 H (9-16) mg/dL Creatinine 4.56 H* (0.5-1.4) mg/dL Estim Creat Clear Calc 7.8 Estimated GFR 9 Random Glucose 119 H (60-115) mg/dL Calcium 9.3 (8.4-10.2) mg/dL Total Bilirubin 0.5 (0.0-1.0) mg/dL AST 33 H (5-31) U/L ALT 24 (0-31) U/L Alkaline Phosphatase 84 (39-117) U/L Total Protein 5.8 L (6.5-8.0) g/dL Albumin 3.9 (3.5-5.0) g/dL Urine Color Yellow Urine Appearance Clear Urine pH 8.0 (5.0-9.0) Ur Specific [address] 1.010 (1.005-1.025) Urine Protein 30 (1+) H (Neg-Trace) mg/dL Urine Glucose (UA) 100 H (Negative) mg/dL Urine Ketones Negative (Negative) mg/dL Urine Blood Negative (Negative) Urine Nitrite Negative (Negative) Ur Leukocyte Esterase Moderate (2+) H (Negative) Urine RBC 0-2 (0-2) /HPF Urine WBC 6-10 H (0-5) /HPF Ur Squamous Epith Cells 3-5 (0-2) /HPF Urine Bacteria None Seen (None Seen) Hyaline Casts 3-5 (0-2) /LPF Independent Historian Clinical information obtained from an independent historian. History obtained from or confirmed by: EMS External Record Review External record reviewed: Inpatient record and Outpatient record Chronic Conditions Patient?s care impacted by: Other (Dementia, ESRD on dialysis) Social Determinants Patient?s care significantly limited by Social Determinants of Health including: Other Social Determinant of Health Discharge Plan Discharge Clinical Impression: Acute encephalopathy, Agitation due to dementia Patient Disposition: Xfer SNF Additional Instructions: Continue medications as prescribed. Withdrawal from benzodiazepines can be as dangerous as withdrawal from alcohol. This can cause seizure activity. Do not stop benzodiazepines abruptly. Prescriptions: No Action (DME) Aerochamber MV Spacer See Rx Instructions .Route Qty: 10 0RF Rx Instructions: Use with respiratory inhaler as directed fluticasone propionate 50 mcg/actuation spray,suspension 2 spray intranasal DAILY PRN (Reason: for allergies) Qty: 48 1RF aspirin 81 mg tablet,delayed release (DR/EC) 81 mg PO DAILY 90 Days Qty: 90 3RF clonazepam 1 mg tablet 1 mg PO BEDTIME PRN (Reason: anxiety) 30 Days Qty: 30 0RF clonazepam 0.5 mg tablet 0.5 mg PO BID PRN (Reason: anxiety) 30 Days Qty: 60 0RF sertraline 50 mg tablet 50 mg PO DAILY 90 Days Qty: 90 1RF trazodone 100 mg tablet 100 mg PO DAILY 90 Days Qty: 90 0RF albuterol sulfate 90 mcg/actuation HFA aerosol inhaler 2 puff PO Q6H PRN (Reason: shortness of breath or wheezing) Qty: 8.5 2RF simvastatin 20 mg tablet 20 mg PO BEDTIME Qty: 90 0RF clopidogrel 75 mg tablet 75 mg PO DAILY Qty: 90 0RF duloxetine 30 mg capsule,delayed release(DR/EC) 30 mg PO BID Qty: 180 0RF multivitamin Tablet 1 tab PO DAILY lamotrigine 150 mg tablet 150 mg PO DAILY pravastatin 40 mg Tablet 40 mg PO BEDTIME 30 Days Qty: 30 3RF amlodipine 10 mg Tablet 10 mg PO DAILY 30 Days Qty: 30 3RF Protocol: Hold for SBP< HOLD for SBP < : 90 nitroglycerin [Nitrostat] 0.4 mg Tablet, Sublingual 0.4 mg sublingual Q5MX3 PRN (Reason: Chest Pain) 30 Days Qty: 30 3RF hydralazine 50 mg Tablet 100 mg PO TID 30 Days Qty: 180 0RF Protocol: Hold for SBP< HOLD for SBP < : 120 gabapentin 100 mg Capsule 100 mg PO BID 30 Days Qty: 60 3RF Klor-Con/EF 25 mEq Tablet, Effervescent 25 meq PO DAILY Qty: 10 0RF metoprolol tartrate 25 mg Tablet 25 mg PO BID 30 Days Qty: 60 3RF Protocol: Hold for SBP/HR < HOLD for SBP < : 90 HOLD for HR < : 60 calcium acetate(phosphat bind) 667 mg Capsule 667 mg PO TIDWM Qty: 60 0RF sennosides [Senna Lax] 8.6 mg Tablet 17.2 mg PO BID 30 Days Qty: 120 3RF lidocaine [Lidocaine Pain Relief] 4 % Adhesive Patch,Medicated 1 patch transdermal DAILY 30 Days Qty: 7 0RF Protocol: Apply to: Apply to: back polyethylene glycol 3350 17 gram Powder In Packet 17 g PO BID 30 Days Qty: 60 3RF Antacid Ext Str (calcium carb) 300 mg (750 mg) Tablet,Chewable 2.5 tab PO Q4H PRN (Reason: Heartburn) 30 Days Qty: 30 0RF melatonin 3 mg Tablet 6 mg PO BEDTIME PRN (Reason: Insomnia) 30 Days Qty: 30 3RF bisacodyl [Gentle Laxative (bisacodyl)] 10 mg Suppository 10 mg AK BEDTIME 30 Days Qty: 30 0RF pyridoxine (vitamin B6) 50 mg Tablet 50 mg PO DAILY 30 Days Qty: 30 0RF famotidine (PF) 20 mg/2 mL Solution 20 mg IVPUSH DAILY 30 Days Qty: 60 0RF cholecalciferol (vitamin D3) 25 mcg (1,000 unit) capsule 25 mcg PO DAILY 90 Days Qty: 90 3RF memantine 5 mg tablet 5 mg PO BID 90 Days Qty: 180 0RF Print Language: Chinese
[2024-12-13 06:03] VITALS: BP 128/48; PULSE 67; RESP 16; TEMP 36.6; O2SAT 93
[2024-12-13 06:42] VITALS: BP 128/48; PULSE 67; RESP 16; TEMP 36.6; O2SAT 93
== END 2024-12-13 06:55 | disposition skilled nursing facility (03) ==
PROVIDERS: Emergency Provider Emergency Medicine; PCP Internal Medicine
DX: G93.40 Encephalopathy, unspecified (principal); F03.911 Unspecified dementia, unspecified severity, with agitation; R41.82 Altered mental status, unspecified; Z79.899 Other long term (current) drug therapy
CPT/HCPCS: 36415; 80053; 81001; 85025; 87086; 99283; 99284

== ENCOUNTER → 2024-12-20 23:59 | Outpatient (BNV) | payer MEDICARE, SELFPAY | PROVIDERS: PCP Internal Medicine; Visit Provider Internal Medicine Hypertension Specialist | DX: N18.6 End stage renal disease (principal) | CPT/HCPCS: 90961 ==

== ENCOUNTER 2025-01-10 16:08 | Emergency (ER) | payer MEDICARE, SELFPAY ==
--- OUTSIDE RECORDS SUMMARY | 2023-08-18 04:30 | XMS_ITS ---
Author Organization [facility] Address [address] [place] [address] Care Team Providers Care City Letter Carrier Name Role Phone Jack HYLTON, [place] Primary Care Provider Unava ilsharron Umesh Ellsworth Unavailable [phone] BISHNU MCMULLEN Unavailable Unavailable REASON FOR VISIT screening,hx polyps Problems Problem Type SNOMED Code ICD Code Onset Dates Problem Status W/U Status Risk Notes Problem History of polyp of colon (situation) (979481082) Personal history of colonic polyps (Z86.010) Active confirmed Problem Diverticular disease of colon (700750849) Diverticulosis of large intestine without perforation or abscess without bleeding (K57.30) Active confirmed Encounters Encounter Location Date Provider Diagnosis [facility] [place] [address] [place], [place] [phone] 08/18/2023 Umesh Ellsworth Colon polyps K63.5 ; [...] * LEIA NERIOB: 6 (79 yo F)Acc No.[id number]:08/18/2023 COLON WITH MAC Patient: KRISSY FRAZIER Provider: Yolanda Ellsworth MD :1945 A ge:78 Y S ex:Female Date:08/18/2023 Address:[address] [place], [place] [phone] Pcp:Espinoza Santiago MD Subjective: * Chief Complaints: [...] 5385 LESION REMOVAL COLONOSCOPY, Modifiers: PT , 33454 COLONOSCOPE, SUBMUCOUS INJ, Modifiers: PT , 97736 COLONOSCOPY AND BIOPSY, Modifiers: 59 , PT, [...] MD Date: 0 08/18/2023 Generated for Cynthia mckeon/Michael/eTbrunosmitting on: 1 10:10 PM EDT
--- OUTSIDE RECORDS SUMMARY | 2023-12-31 03:30 | XMS_ITS ---
Author Organization [facility] Address [address] [place] [address] Care Team Providers Care Tire Building Supervisor Name Role Phone Jack HYLTON, [place] Primary Care Provider Unava Umesh Rodriguez Unavailable [phone] BISHNU MCMULLEN Unavailable Unavailable REASON FOR VISIT screening,hx polyps Encounters Encounter Location Date Provider Diagnosis [facility] [place] Out[place] [address] [place], [place] [phone] 12/31/2023 Umesh Ellsworth Colon cancer scree rose [...] * MARILIN NERIISDOB: 6 (79 yo F)Acc No.[id number]:12/31/2023 COLON WITH MAC Patient: KRISSY FRAZIER Provider: Yolanda Ellsworth MD :1945 A ge:78 Y S ex:Female Date:12/31/2023 Address:[address] [place] [address] [phone] Pcp:Espinoza Santiago MD Subjective: * Chief Complaints: [...] 5385 LESION REMOVAL COLONOSCOPY, Modifiers: PT , [address] COLONOSCOPY AND BIOPSY, Modifiers: PT , 93871 COLONOSCOPE, SUBMUCOUS INJ, Modifiers: 59 , PT, [...] Yolanda Ellsworth MD Date: Generated for Cynthia mckeon/Michael/Alfonzoransmitting on: 10:10 PM EDT
--- OUTSIDE RECORDS SUMMARY | 2024-06-21 12:20 | XMS_ITS ---
Author Organization [facility] Address [address] [place] [address] Care Team Providers Care Skein Bander Name Role Phone Jack HYLTON, Espinoza Primary Care Provider Umesh Stephenson Unavailable [phone] BISHNU MCMULLEN Unavailable Unavailable REASON FOR VISIT Patient presents today for a F/U after removal of flat polyp Encounters Encounter Location Date Provider Diagnosis [facility] [address] [place] [phone] 06/21/2024 Umesh Ellsworth Plan Of Treatment No Information Progress Notes * LEIA NERIOB: 6 (79 yo F)Acc No.[id number]:06/21/2024 Progress Notes Patient: KRISSY FRAZIER Provider: Yolanda Ellsworth MD :1945 A ge:79 Y S ex:Female Date:06/21/2024 Address:[address] [place], [place] [id number] Pcp:Espinoza Santiago MD Subjective: * Chief Complaints: [...] 0 06/21/2024 Generated for Cynthia mckeon/Michael/eTransmitting on: 1 09:16 PM EDT
--- NOTE | ~2025-01-10 | XR_ITS ---
EXAMINATION: XR CHEST 1 VIEW HISTORY: SOB COMPARISON: Comparison is made with the prior examination dated 12/02/2024. FINDINGS: A single AP portable view of the chest performed at 5:41 PM is submitted. A right-sided dialysis catheter is noted with its tip in the right atrium. There are small bilateral pleural effusions, right greater than left. Small patchy opacities are noted in the midlung zones of both lungs which could represent atelectasis or pneumonia. There is no pneumothorax or pulmonary vascular congestion. The heart is enlarged. A catheter projects over the spine. XR/XR chest 1V IMPRESSION: Cardiomegaly. Small bilateral pleural effusions. Patchy opacities in the midlung zones could represent atelectasis or pneumonia. Follow-up is recommended. Electronically signed by: Umesh Bradford MD 01/11/2025 07:16 AM EDT
[2025-01-10 16:13] VITALS: BP 134/53; PULSE 84; O2SAT 99
[2025-01-10 16:19] VITALS: BP 144/59; PULSE 69; RESP 18; TEMP 36.4; O2SAT 96
[2025-01-10 16:22] VITALS: BP 144/59; PULSE 79; RESP 16; TEMP 36.4; O2SAT 96; BMI 17.2
--- NOTE | 2025-01-10 16:23 | ECG_ITS ---
Test Reason : SOB Blood Pressure : */* mmHG Vent. Rate : 67 BPM Atrial Rate : 67 BPM P-R Int : 164 ms QRS Dur : 82 ms QT Int : 418 ms P-R-T Axes : 35 7 34 degrees QTcB Int : 441 ms Normal sinus rhythm Normal ECG When compared with ECG of 10-Dec-2024 16:10, T wave inversion now evident in Anterior leads Referred By: Generic ED Physician Electronically Signed By: FRANNIE CHEN MD
[2025-01-10 16:57] LABS: MANUAL DIFF FLAG NO
[2025-01-10 16:59] LABS: Hematocrit 29.9 % (37.0-47.0); Hemoglobin 9.2 g/dl (12.0-16.0); Imm Gran Abs Auto 0.06 X10*3/uL (0.00-0.03); Imm Gran Pct Auto 0.7 % (0.0-0.4); Lymphocytes Absolute Auto 0.9 X10*3/uL (1.2-4.9); Mean Corpuscular HGB Conc 30.8 g/dl (31.0-35.0); Mean Corpuscular Hemoglobin 31.2 pg (27.0-33.0); Mean Corpuscular Volume 101.4 fL (80.0-98.0); NRBC Abs Auto 0.000 X10*3/uL (0.0-0.012); NRBC Pct Auto 0.0 /100WBC (0.0-0.2); Platelet Count 244 X10*3/uL (160-400); Red Blood Count 2.95 X10*6/uL (4.20-5.50); White Blood Count 8.4 X10*3/uL (4.8-10.8)
[2025-01-10 17:23] LABS: Alanine Aminotransferase 18 U/L (0-31); Albumin Level 3.8 g/dL (3.5-5.0); Anion Gap 13 (12-20); Aspartate Amino Transferase 26 U/L (5-31); Blood Urea Nitrogen 11 mg/dL (9-16); Calcium 8.4 mg/dL (8.4-10.2); Carbon Dioxide 28 mmol/L (22-29); Chloride 101 mmol/L (96-108); Creatinine Clr Calc Pharmacy 17.7; Estimated Glomerular Filt Rate 25; Potassium 3.5 mmol/L (3.3-5.1); Sodium 138 mmol/L (135-145); Total Protein 6.0 g/dL (6.5-8.0); Troponin-I High Sensitivity 3.8 ng/L (<3.5-17.0)
--- NOTE | 2025-01-10 17:34 | ED_ITS ---
HPI - General Adult General Chief complaint: Recheck/Abnormal Lab/Rx Stated complaint: Fluid overload from dialysis, diff breathing Time Seen by Provider: 01/10/25 16:55 Source: patient and EMS Mode of arrival: EMS Limitations: no limitations History of Present Illness ED Provider: HPI narrative: 79-year-old woman has right-sided port for hemodialysis, on Wednesday, went to dialysis today at [facility], was reporting shortness of breath for over a week, reportedly chest x-ray revealed fluid overload and she was sent to the ER. No reports of fevers or chills. Related Data Home Medications ?Medication ?Instructions ?Recorded ?Confirmed lamotrigine 150 mg tablet 150 mg PO DAILY 11/25/2409/13 multivitamin 1 tab PO DAILY 11/25/2409/13 Previous Rx's ?Medication ?Instructions ?Recorded inhalational spacing device #10 ea 06/10/22 (Aerochamber MV spacer) fluticasone propionate 50 2 spray intranasal DAILY PRN for 11/28/23 mcg/actuation nasal allergies #48 mL spray,suspension aspirin 81 mg tablet,delayed 81 mg PO DAILY 90 days #9 0 tabs 11/29/23 release clonazepam 0.5 mg tablet 0.5 mg PO BID PRN anxiety 30 days 11/29/23 #60 tabs clonazepam 1 mg tablet 1 mg PO BEDTIME PRN anxiety 30 11/29/23 days #30 tabs sertraline 50 mg tablet 50 mg PO DAILY 90 days #90 t abs 11/29/23 trazodone 100 mg tablet 100 mg PO DAILY 90 days #90 tabs 11/29/23 cholecalciferol (vitamin D3) 25 25 mcg PO DAILY 90 day s #90 caps 03/06/24 mcg (1,000 unit) capsule albuterol sulfate 90 mcg/actuation 2 puff PO Q6H PRN s hortness of 04/19/24 aerosol inhaler breath or wheezing #8.5 ea simvastatin 20 mg tablet 20 mg PO BEDTIME #90 tabs memantine 5 mg tablet 5 mg PO BID 90 days #180 tab s 09/27/24 clopidogrel 75 mg tablet 75 mg PO DAILY #90 tabs 10/20 06/13 duloxetine 30 mg capsule,delayed 30 mg PO BID #180 cap s 11/01/24 release amlodipine 10 mg tablet 10 mg PO DAILY 30 days #30 t abs 12/11/24 bisacodyl 10 mg rectal suppository 10 mg WI BEDTIME 30 days #30 ea 12/11/24 (Gentle Laxative (bisacodyl)) calcium acetate(phosphat bind) 667 667 mg PO TIDWM #60 caps 12/11/24 mg capsule calcium carbonate (Antacid Ext Str 2.5 tab PO Q4H PRN Heartburn 30 12/11/24 (calcium carb)) days #30 tabs famotidine (PF) 20 mg/2 mL 20 mg (2 mL) IVPUSH DAILY 3 0 days 12/11/24 intravenous solution #60 mL gabapentin 100 mg capsule 100 mg PO BID 30 days #60 ca ps 12/11/24 hydralazine 50 mg tablet 100 mg PO TID 30 days #180 t abs 12/11/24 lidocaine 4 % topical patch 1 patch transdermal DAILY 30 days 12/11/24 (Lidocaine Pain Relief) #7 ea melatonin 3 mg tablet 6 mg (2 x 3 mg) PO BEDTIME P RN 12/11/24 Insomnia 30 days #30 tabs metoprolol tartrate 25 mg tablet 25 mg PO BID 30 days #60 tabs 12/11/24 nitroglycerin 0.4 mg sublingual 0.4 mg sublingual Q5MX 3 PRN Chest 12/11/24 tablet (Nitrostat) Pain 30 days #30 tabs polyethylene glycol 3350 17 gram 17 g PO BID 30 days # 60 ea 12/11/24 oral powder packet potassium bicarbonate-citric acid 25 meq PO DAILY #10 ea 12/11/24 25 mEq effervescent tablet (Klor-Con/EF) pravastatin 40 mg tablet 40 mg PO BEDTIME 30 days #30 tabs 12/11/24 pyridoxine (vitamin B6) 50 mg 50 mg PO DAILY 30 days # 30 tabs 12/11/24 tablet sennosides 8.6 mg tablet (Senna 17.2 mg (2 x 8.6 mg) P O BID 30 12/11/24 Lax) days #120 tabs furosemide 40 mg tablet (Lasix) 60 mg (1.5 x 40 mg) PO BID 3 days 01/10/25 #10 tabs Allergies Allergy/AdvReac Type Severity Reaction Status Date / Time morphine (Morphine) Allergy Severe VOMITING/LONGORIA Verified 01/10/25 16:25 LLUCINATION S codeine (Codeine) Allergy Intermediate VOMITING/HALLUCINATIONS, Verified 01/10/25 16:25 nause/extended abdomen latex Allergy Unknown Unknown Verified 01/10/25 16:25 atorvastatin AdvReac Intermediate fever, Verified 01/10/25 16:25 chills, abd pain, numbness capsaicin (CAPSAICIN) AdvReac Intermediate BURNING Verified 01/10/25 16:25 bacitracin Allergy Intermediate redness Uncoded 01/10/25 16:25 and itching adhesives Allergy Mild rash Uncoded 01/10/25 16:25 Review of Systems 2 Constitutional: Constitutional: Reports as per HPI [facility] Past Medical History Medical History DVT (deep venous thrombosis) Depression Dementia Degenerative disease of nervous system, unspecified Multifactorial gait disorder Ataxia Peripheral neuropathy Arthritis Complex partial seizures Vitamin D deficiency TIA (transient ischemic attack) Seizure Alzheimer's dementia Anxiety Insomnia Osteoporosis Anemia Gait abnormality Partial symptomatic epilepsy with complex partial seizures, not intractable, without status epilepticus Asthma Pure hypercholesterolemia Peripheral arterial disease Unsteady gait Neuropathy Benign essential hypertension Alcoholism in remission Exertional dyspnea Surgical History Status post insertion of nerve stimulator Hx of foot surgery Hx of nasal septoplasty History of esophagogastroduodenoscopy (EGD) H/O colonoscopy History of angioplasty History of partial gastrectomy History of cholecystectomy History of cataract surgery History of hysterectomy History of tubal ligation S/P excision of neuroma Family History Family History Father CVD (cardiovascular disease) Heart disease Hypertension Stroke Mother CVD (cardiovascular disease) Heart disease Asthma Maternal Grandmother No problems noted. Maternal Grandfather No problems noted. Paternal Grandmother No problems noted. Paternal Grandfather No problems noted. Maternal Aunt Tongue cancer Social History Social History Household Members: None Housing: Apartment Housing Other:: senior housing Are you a primary rn coronary care unit to a significant other at home: No Do you presently have visiting nurse or other home services: No Alcohol intake: former Comment: PT removes her alarm when in chair Patient Tobacco Use Status: Former Tobacco user e-Cigarette/Vaping Use: Never Used Second Hand Smoke Exposure: No Advance Directives: Yes Advance Directives Date on File: 06/12/21 Do you have a plan to hurt others: No Plan service: No Current occupational status: retired Current occupational exposures/hazards: No Cognitive needs: No Hearing needs: No Vision needs: Yes Physical Exam ED Vital Signs: Vital Signs - 24 hr 01/10/25 16:19 01/10/25 16:22 01/10/25 18:41 Temperature 97.6 F 97.6 F 97.9 F Pulse Rate 69 79 67 Respiratory Rate 18 16 13 Blood Pressure 144/59 H 144/59 H 149/57 H Pulse Oximetry 96 96 95 Oxygen Delivery Method Nasal Cannula Nasal Cannula Room Air Oxygen Flow Rate 1 BMI result Body Mass Index 17.2 Medical Decision Making Medical Decision Making MDM Narrative: 5:42 PM 01/10/2025 (Dr. Jules Covarrubias): Patient is on hemodialysis, reported short of breath, we will obtain x-ray to see what was the concern, [place] [address] however with a history of CHF that is not unexpected, had full dialysis today, the rest of the blood work is reassuring, no anemia, pericardial effusion is another consideration, ACS, dysrhythmia we will obtain ECG. Disposition to be determined. 6:58 PM 01/10/2025 (Dr. Jules Covarrubias): I am consulting Dr. Ramirez , patient is still urinates, she does have increased vascular markings and small right-sided pleural effusion, she has had full dialysis today, I think it is probably going to be reasonable to diurese her in the entire room and then she is going to have dialysis Wednesday. 7:12 PM 01/10/2025 (Dr. Jules Covarrubias): I spoke with Dr. Ramirez we discussed management and he states it is very reasonable to give her diuresis here 100 mg IV and 100 mg p.o. until she goes to dialysis, I think it is very reasonable as well Differential Diagnosis Differential Diagnoses: The differential diagnosis associated with the presentation includes (CHF, COPD exacerbation, pneumonia, pneumothorax, ACS, PE,) Admission/Observation Consideration of admission/observation: Escalation of care including admission/observation considered Consult Healthcare Provider Management of the patient was discussed with: Moving Consultant (Dr. Ramirez) Lab Data MDM Lab Attestation statement: I reviewed the patient's lab results. 01/10/25 16:51 01/10/25 16:51 Labs: Lab Results 01/10/25 Range/Units 16:51 WBC 8.4 (4.8-10.8) X10*3/uL RBC 2.95 L D (4.20-5.50) X10*6/uL Hgb 9.2 L D (12.0-16.0) g/dl Hct 29.9 L D (37.0-47.0) % MCV 101.4 H (80.0-98.0) fL MCH 31.2 (27.0-33.0) pg MCHC 30.8 L (31.0-35.0) g/dl RDW 17.9 H (11.0-16.0) % Plt Count 244 (160-400) X10*3/uL MPV 8.5 L (9.4-12.3) fL Immature Gran % (Auto) 0.7 H (0.0-0.4) % Neut % (Auto) 71.0 (45-73) % Lymph % (Auto) 10.8 L (20-40) % Hughes % (Auto) 10.9 (2-11) % Eos % (Auto) 5.6 H (0-4) % Baso % (Auto) 1.0 (0-2) % Lymph # (Auto) 0.9 L (1.2-4.9) X10*3/uL Hughes # (Auto) 0.9 (0.1-1.2) X10*3/uL Eos # (Auto) 0.5 H (0.0-0.4) X10*3/uL Baso # (Auto) 0.1 (0.0-0.2) X10*3/uL Abs Immat Gran (auto) 0.06 H (0.00-0.03) X10*3/uL Absolute Neuts (auto) 5.9 (2.0-8.3) x10*3/uL Absolute Nucleated RBC 0.000 (0.0-0.012) X10*3/uL Nucleated RBC % (auto) 0.0 (0.0-0.2) /100WBC Sodium 138 (135-145) mmol/L Potassium 3.5 D (3.3-5.1) mmol/L Chloride 101 (96-108) mmol/L Carbon Dioxide 28 (22-29) mmol/L Anion Gap 13 (12-20) BUN 11 (9-16) mg/dL Creatinine 1.91 H (0.5-1.4) mg/dL Estim Creat Clear Calc 17.7 Estimated GFR 25 Random Glucose 202 H (60-115) mg/dL Calcium 8.4 (8.4-10.2) mg/dL Total Bilirubin 0.4 (0.0-1.0) mg/dL AST 26 (5-31) U/L ALT 18 (0-31) U/L Alkaline Phosphatase 92 (39-117) U/L Troponin I High Sens 3.8 D (<3.5-17.0) ng/L NT-Pro-B Natriuret Pep 45710.9 H (<300) pg/mL Total Protein 6.0 L (6.5-8.0) g/dL Albumin 3.8 (3.5-5.0) g/dL Independent Interpretation I performed an independent interpretation of an: EKG (67 beats per minute otherwise normal ECG without dysrhythmia, AV mela blocks or ST-T changes to suspect underlying ACS, my independent interpretation) and Plain X-Ray (Increased vascular markings, Ambrocio catheter in place, vascular cephalization) Radiology Impression Discussion of test interpretation with radiology: I have reviewed the radiologist's reading. External Record Review External record reviewed: Outpatient record Critical Care Time Critical Care Time Critical Care Time: Yes Total Critical Care Time: 35 Attestation: Time is exclusive of separately billable procedures. Time includes: direct patient care, patient reassessment, coordination of patient care, interpretation of data (laboratory data, pulse oximetry, arterial blood gases and chest xrays), review of patient's medical records, medical consultation and documentation of patient care. Procedures excluded from critical care time: central intravenous line placement and electrocardiography. Discharge Plan Discharge Clinical Impression: Pulmonary edema with congestive heart failure, ESRD on hemodialysis Patient Disposition: Home, Self-Care Additional Instructions: The patient we will continue furosemide 60 mg twice a day until she has her dialysis on Wednesday, she received 100 mg IV furosemide in the ER There was no indication for admission, care discussed with intake worker Dr. Ramirez Vital signs, EKG, blood work generally reassuring Prescriptions: New furosemide [Lasix] 40 mg tablet 60 mg PO BID 3 Days Qty: 10 0RF No Action (DME) Aerochamber MV Spacer See Rx Instructions .Route Qty: 10 0RF Rx Instructions: Use with respiratory inhaler as directed fluticasone propionate 50 mcg/actuation spray,suspension 2 spray intranasal DAILY PRN (Reason: for allergies) Qty: 48 1RF aspirin 81 mg tablet,delayed release (DR/EC) 81 mg PO DAILY 90 Days Qty: 90 3RF clonazepam 1 mg tablet 1 mg PO BEDTIME PRN (Reason: anxiety) 30 Days Qty: 30 0RF clonazepam 0.5 mg tablet 0.5 mg PO BID PRN (Reason: anxiety) 30 Days Qty: 60 0RF sertraline 50 mg tablet 50 mg PO DAILY 90 Days Qty: 90 1RF trazodone 100 mg tablet 100 mg PO DAILY 90 Days Qty: 90 0RF albuterol sulfate 90 mcg/actuation HFA aerosol inhaler 2 puff PO Q6H PRN (Reason: shortness of breath or wheezing) Qty: 8.5 2RF simvastatin 20 mg tablet 20 mg PO BEDTIME Qty: 90 0RF clopidogrel 75 mg tablet 75 mg PO DAILY Qty: 90 0RF duloxetine 30 mg capsule,delayed release(DR/EC) 30 mg PO BID Qty: 180 0RF multivitamin Tablet 1 tab PO DAILY lamotrigine 150 mg tablet 150 mg PO DAILY pravastatin 40 mg Tablet 40 mg PO BEDTIME 30 Days Qty: 30 3RF amlodipine 10 mg Tablet 10 mg PO DAILY 30 Days Qty: 30 3RF Protocol: Hold for SBP< HOLD for SBP < : 90 nitroglycerin [Nitrostat] 0.4 mg Tablet, Sublingual 0.4 mg sublingual Q5MX3 PRN (Reason: Chest Pain) 30 Days Qty: 30 3RF hydralazine 50 mg Tablet 100 mg PO TID 30 Days Qty: 180 0RF Protocol: Hold for SBP< HOLD for SBP < : 120 gabapentin 100 mg Capsule 100 mg PO BID 30 Days Qty: 60 3RF Klor-Con/EF 25 mEq Tablet, Effervescent 25 meq PO DAILY Qty: 10 0RF metoprolol tartrate 25 mg Tablet 25 mg PO BID 30 Days Qty: 60 3RF Protocol: Hold for SBP/HR < HOLD for SBP < : 90 HOLD for HR < : 60 calcium acetate(phosphat bind) 667 mg Capsule 667 mg PO TIDWM Qty: 60 0RF sennosides [Senna Lax] 8.6 mg Tablet 17.2 mg PO BID 30 Days Qty: 120 3RF lidocaine [Lidocaine Pain Relief] 4 % Adhesive Patch,Medicated 1 patch transdermal DAILY 30 Days Qty: 7 0RF Protocol: Apply to: Apply to: back polyethylene glycol 3350 17 gram Powder In Packet 17 g PO BID 30 Days Qty: 60 3RF Antacid Ext Str (calcium carb) 300 mg (750 mg) Tablet,Chewable 2.5 tab PO Q4H PRN (Reason: Heartburn) 30 Days Qty: 30 0RF melatonin 3 mg Tablet 6 mg PO BEDTIME PRN (Reason: Insomnia) 30 Days Qty: 30 3RF bisacodyl [Gentle Laxative (bisacodyl)] 10 mg Suppository 10 mg WI BEDTIME 30 Days Qty: 30 0RF pyridoxine (vitamin B6) 50 mg Tablet 50 mg PO DAILY 30 Days Qty: 30 0RF famotidine (PF) 20 mg/2 mL Solution 20 mg IVPUSH DAILY 30 Days Qty: 60 0RF cholecalciferol (vitamin D3) 25 mcg (1,000 unit) capsule 25 mcg PO DAILY 90 Days Qty: 90 3RF memantine 5 mg tablet 5 mg PO BID 90 Days Qty: 180 0RF Print Language: Panamanian
--- NOTE | 2025-01-10 17:39 | PC.NURSE ---
Addendum entered by Cassandra Trujillo RN 01/10/25 18:25: of note patient patient has dialysis port on the right chest, dressing is clean dry and intact Original Note: patient is awake and alert, resp even and unlabored. patient had a fall last , was not evaluated initially, patient brought in by daughter today due to the hematoma / bruising she has to face. patient was walking down three steps and missed the last one. patient hit head, no loc and is not on thinners. patient states she feels fine, has been out in her garden and cleaning. patient placed on the tele monitor is in a normal sinus rhythm. #20 placed in the RFA.
[2025-01-10 18:10] LABS: Alkaline Phosphatase 92 U/L (39-117)
[2025-01-10 18:41] VITALS: BP 149/57; PULSE 67; RESP 13; TEMP 36.6; O2SAT 95
--- NOTE | 2025-01-10 19:41 | PC.NURSE ---
Confirmed dose w/ provider Dr. Galeana, confirmed dose.
[2025-01-10] MEDS: Furosemide 100 MG/10 ML VIAL IVPUSH (19:45)
--- NOTE | 2025-01-10 20:41 | PC.NURSE ---
nurse to nurse report called to Natali MCCULLOUGH at [facility]
[2025-01-10 20:44] VITALS: BP 149/57; PULSE 67; RESP 13; TEMP 36.6; O2SAT 95
--- OUTSIDE RECORDS SUMMARY | 2025-01-10 22:10 | XMS_ITS | Clinical Summary ---
Author Organization [address] [facility] Address [address] [place] [address] Phone Care Team Providers Care Yeast Washer Name Role Phone Espinoza Santiago MD Primary Care Provider [phone] Allergies Active Allergy Reactions Criticality Noted Date [...] propionate (FLONASE) 50 mcg/actuation nasal spray 1 Novelty by Each Nare route daily. Active clopidogreL [...] Take 1 Tab by mouth daily. Active qvhak-og-2-dha-e hz-xovofjt-fxl (MegaRed [place]-3 Krill Oil) 141-71-35-50 mg capsule Take 1 Cap by mouth [...] back pain 01/18/2024 PVD (peripheral vascular disease) ([facility]/HCC V24) 01/18/2024 Varicose veins of bilateral lower extremities wi th pain 01/18/2024 Encounters Date Type Department Care Team Description 10/12/2024 Telephone Vascular Surgery - [place] [address] [place] [phone] Maritza Webber PA from Last 3 Months Surgical History Surgery Date Site/Laterality Comments ANGIOPLASTY Bilateral PROCEDURE: HISTORICAL ANGIOPLASTY OTHER SURGICAL HISTORY 09/01/2022 PROCEDURE: NH SLCTV CATHJ 3RD+ ORD SLCTV ABDL PEL/LXTR BRNCH OTHER SURGICAL HISTORY 09/01/2022 PROCEDURE: NH SLCTV CATHJ EA 2ND+ ORD ABDL PEL/LXTR ART BRNCH OTHER SURGICAL HISTORY 09/01/2022 PROCEDURE: X-RAY EXAM OF ARM/LEG ARTERIES OTHER SURGICAL HISTORY 09/01/2022 PROCEDURE: X-RAY EXAM OF PELVIC ARTERIES OTHER SURGICAL HISTORY 09/01/2022 PROCEDURE: ULTRASOUND GUIDANCE FOR VASCULAR AC Medical History Medical History Date Comments PVD (peripheral vascular dis ease) (CMS/HCC V24) DX:PVD (peripheral vascular disease) ([facility]) Varicose veins of bilateral lower extremities with [...] Description 05/18/2025 1:30 PM EST Ancillary Procedure [facility] [address] [place] [id number] 06/28/2025 3:00 PM EDT Office Visit Vascular Surgery - [place] [address] [place] [phone] Maritza Webber, JAYDE [address] [place] [phone] Health Maintenance Due Date Last Done [...] Documents on File Type Date Recorded Patient [employer] [facility] [facility] Care Decision (hx) 06/16/2020 GENE JACKSON DIRECTIVE Care Teams Yeast Washer Relationship Specialty Start Date End Date Espinoza Santiago MD [address] [place] [address] [address] [place] PCP - General Internal Medicine 02/15/13
--- OUTSIDE RECORDS SUMMARY | 2025-01-10 22:10 | XMS_ITS | Patient Health Record ---
Author Organization [facility] Address [address] [place] [address] Care Team Providers Care Music Librarian Name Role Phone Espinoza Santiago MD Primary Care Provider Umesh Stephenson Unavailable [phone] MCMULLENBISHNU VILLAVICENCIO Unavailable Unavailable Allergies Allergen (clinical [...] Active Results Component Value Reference Range Notes CT abdomen pelvis w con (Not yet reviewed by provider) Interpretation: Performing Lab: Notes/Report: [address] [address] [address] Scan Report Signed Patient: Krissy Neri MR#: [id number] 80 : 1945 Acct:[id number] Age/Sex: 78 / F ADM Date: 02/07/24 Loc: .CT Attending Dr: Umesh Ellsworth MD Ordering Physician: Umesh Ellsworth MD Date of Service: 02/07/24 Procedure(s): CT abdomen pelvis w IV con Accession Number(s): [id number] cc: Espinoza Santiago MD; Umesh Ellsworth MD [...] in the subcutaneous tissues cephalad beyond the [id number] LYMPH NODES: No retroperitoneal lymphadenopathy. VASCULAR: Calcific [...] by: Sam Laguna MD 02/07/2024 03:52 PM [facility] Dictated By: Sam Laguna MD Signed By: <Electronically signed by Sam Laguna MD in OV> 02/07/24 1552 DD/ 1116 TD/TT: 02/07/24 1128 Sampler Pickup: SS Reason For Referral No Information Medications Medication SIG (Take, Route, Frequency, Duration) Notes Start Date End Date Status Vitamin B Complex 100mg Active Vitamin C 1000 MG 1 tablet Orally Once a day; Duration: 30 day(s) Active lamoTRIgine 200 MG TAKE 1 TABLET BY MANDY TH EVERY MORNING Oral; Duration: 90 Active MiraLax Not-Taking Clopidogrel Bisulfate 75 MG TAKE 1 TABLET BY MOUTH EVERY DAY Oral; Duration: 90 Active Multivitamin Adults 50+ - as directed Orally Active Campral 333mg Not-Ta saad Aspirin 81 81 MG 1 tablet Orally Once a day; Duration: 30 day(s) Active tiZANidine HCl 2 MG Oral; Duration: 90 Active Sertraline HCl 50 MG Oral; Duration: 90 Active Albuterol Sulfate HFA 108 (90 Base) MCG/ACT INHALE 2 PUFFS BY MOUTH EVERY 6 HOURS NEEDED FOR BRONCHOSPASM Inhalation; Duration: 25 Active Topiramate 25 MG Oral; Duration: 90 Active Diovan 80mg Not-Taki ng ZyrTEC 10mg Not-Taki ng Folic Acid 1mg Not-T aking Melatonin 3mg Not-Ta saad DULoxetine HCl 30 MG TAKE 1 CAPSULE BY M OUTH TWICE A DAY Oral; Duration: 90 Active traZODone HCl 100 MG TAKE 1 TO 2 TABLETS BY MOUTH AT BEDTIME NEEDED Oral; Duration: 90 Active clonazePAM 1mg Activ e Vitamin D-3 2000u Ac tive Glucosamine 1500mg A ctive Flovent HFA 110mcg A ctive ProAir HFA 99mcg Act lidia Immunizations Vaccine Route Administration Date Status Comme nts Influenza Unknown 11/20/2018 Administered Problems Problem Type SNOMED Code ICD Code Onset Dates Problem Status W/U Status Risk Notes Problem Colon cancer screening (536496010) Colon cancer screening (Z12.11) Active confirmed Problem Screening for malignant neoplasm of colon (643671489) Encounter for screening for malignant neoplasm of colon (Z12.11) Active confirmed Problem History of adenomatous polyp of colon (390728255) History of adenomatous polyp of colon (Z86.010) Active confirmed Problem History of polyp of colon (situation) (175378177) Personal history of colonic polyps (Z86.010) Active confirmed Problem Diverticular disease of colon (833358198) Diverticulosis of large intestine without perforation or abscess without bleeding (K57.30) Active confirmed Problem Screening for malignant neoplasm of rectum (718598176) Encounter for screening for malignant neoplasm of rectum (Z12.12) Active confirmed Problem Anemia (991494333) Anemia (D64.9) Active confirmed Problem Iron deficiency anemia (03550856) Other iron deficiency anemia (D50.8) Active confirmed Problem Irritable bowel syndrome (77490531) 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) Active confirmed Problem Long-term current use of anticonvulsant (17361779401086) Long-term current use of anticonvulsant (Z79.899) Active confirmed Problem Adenoma of transverse colon (100030281) Adenoma of transverse colon (D12.3) Active confirmed Problem History of drug therapy (144701257) H/O long-term (current) use of anticoagulants (Z92.29) Active confirmed Encounters Encounter Location Date Provider Diagnosis [facility] [address] [place] [phone] 02/11/2024 Umesh Ellsworth [facility] [address] [place] [phone] 05/04/2024 Umesh Ellsworth [facility] [address] [place] [phone] 06/20/2024 Umesh Ellsworth Plan Of Treatment Pending Test Test Name [...] [place] [address] [place] [address] [id number] KRISSY NERI Self - patient is the insured [employer] CLAIM[employer] [address] [place] [address] [phone] [id number] KRISSY NERI Self - patient is the insured Medical (General) History Medical History History ICD Code Asthma Anxiety/depression Alcohol abuse---abstinenet 2010 Denies AL,DM,CVA,renal disease IBS--negative duodenal and c olonic biopsies in 06/2011--no microscopic colitis, no celiac disease Tubular adenomas removed in 2002, 2003, and 2005---negative colonoscopy in 06/2011 GERD--EGD in 06/2011--no esophagitis, nor mal duodenl biopsies TIA in 2013--transient left-sided weakne ss HTN PAD Varicose veins TIA /w seizure DVT's-needed thrombectomies-sees Dr. Cecily taylor at [facility] Chronic anemia in relation to her [...] surgery-bone spurs--both feet NEVRO Senza Spine Stimulator [phone] for pain put in by Dr. Sebastian 01/2023
--- OUTSIDE RECORDS SUMMARY | 2025-01-10 22:10 | XMS_ITS | Patient Health Record ---
[facility] Address [address] [place] [address] Care Team Providers Care Graphic Design Teacher Name Role Phone Fuentes Santiago MDh Primary Care Provider Ike King Unavailable [phone] Allergies Allergen (clinical drug ingredient) Drug/Non Drug [...] primary osteoarthritis of the ankle and/or foot (746313460) Primary osteoarthrit is, right ankle and foot (M19.071) Active confirmed Problem Localized, primary osteoarthritis of the ankle and/or foot (084320890) Primary osteoarthrit is, left ankle and foot (M19.072) Active confirmed Problem Acquired hammer toe of right foot (9636081646214953) Other hammer toe(s) (acquired), right foot (M20.41) Active confirmed Problem Acquired hammer toe of left foot (3914596509056309) Other hammer toe(s) (acquired), left foot (M20.42) [...] X ray : Foot, right 3V 08/02/2017 [id number], [id number]/[id number], JOINT/BURSA 0 08/30/2017 21462, [id number]/[id number], JOINT/BURSA 1 2017 41604- Unna Boot 11/24/2017 Insurance Providers Payer Name Payer Address Payer Phone Subscriber Number Group Number Insured Name Patient Relationship to Insured Coverage Start Date Coverage End Date Medicare National Govt Svcs Inc [address] [place] [address] [id number] Cary Davis Self - patient is the insured 1 [employer] Blue Shield [address] [place] [address] [id number] Cary Davis Self - patient is the [...] dizziness, nausea, drive hieves, deh ydration 09/27/2017 [facility] L3rd toe 01/14/2018 [facility]-sever leg pain blood clots / Afib 20 21
== END 2025-01-10 20:46 | disposition home or self-care (01) ==
PROVIDERS: Emergency Provider Emergency Medicine; PCP Internal Medicine
DX: I50.1 Left ventricular failure, unspecified (principal); R79.89 Other specified abnormal findings of blood chemistry; E87.70 Fluid overload, unspecified; J90 Pleural effusion, not elsewhere classified; R06.02 Shortness of breath; N18.6 End stage renal disease; Z79.899 Other long term (current) drug therapy; Z87.891 Personal history of nicotine dependence; Z99.2 Dependence on renal dialysis
CPT/HCPCS: 36415; 71045; 80053; 83880; 84484; 85025; 93005; 96374; 99284; 99291; J1938

== ENCOUNTER → 2025-01-10 16:23 | Outpatient (BNV) | payer MEDICARE, SELFPAY | PROVIDERS: Emergency Provider Emergency Medicine; PCP Internal Medicine; Visit Provider Internal Medicine Cardiovascular Disease | DX: R06.02 Shortness of breath (principal) | CPT/HCPCS: 93010 ==

== ENCOUNTER → 2025-01-10 17:35 | Outpatient (BNV) | payer MEDICARE, SELFPAY | PROVIDERS: Emergency Provider Emergency Medicine; PCP Internal Medicine; Visit Provider Radiology Diagnostic Radiology | DX: R06.02 Shortness of breath (principal) | CPT/HCPCS: 71045 ==

== ENCOUNTER → 2025-01-20 23:59 | Outpatient (BNV) | payer MEDICARE, SELFPAY | PROVIDERS: PCP Internal Medicine; Visit Provider Internal Medicine Hypertension Specialist | DX: N18.6 End stage renal disease (principal) | CPT/HCPCS: 90961 ==

== ENCOUNTER 2025-02-06 15:20 | Outpatient (AMB) | payer MEDICARE, SELFPAY ==
[2025-02-06 15:24] VITALS: BMI 17.1
--- NOTE | 2025-02-06 15:24 | A.OFFVIS_ITS ---
Vital Signs 02/06/25 15:24 Height 5 ft 5 in Weight 103 lb BMI 17.1 Intake Visit Reasons: AERIAL PHOTOGRAPH INTERPRETER/ERIKA referral for Fistula creation Intake Note: AERIAL PHOTOGRAPH INTERPRETER/Fistula placement referral, Has dialysis , & Wed. See's Director Stage Required: No Accompanied by: Daughter Allergies morphine (Morphine) Allergy (Severe, Verified 02/06/25 15:26) VOMITING/HALLUCINATIONS codeine (Codeine) Allergy (Intermediate, Verified 02/06/25 15:26) VOMITING/HALLUCINATIONS, nause/extended abdomen latex Allergy (Unknown, Verified 02/06/25 15:26) Unknown atorvastatin Adverse Reaction (Intermediate, Verified 02/06/25 15:26) fever, chills, abd pain, numbness capsaicin (CAPSAICIN) Adverse Reaction (Intermediate, Verified 02/06/25 15:26) BURNING bacitracin Allergy (Intermediate, Uncoded 02/06/25 15:26) redness and itching adhesives Allergy (Mild, Uncoded 02/06/25 15:26) rash HPI HPI AERIAL PHOTOGRAPH INTERPRETER/ERIKA referral for Fistula creation: Details: The patient is a 79-year-old female presenting for a new patient evaluation for permanent dialysis access. She has been on hemodialysis for approximately two to three months, starting in November, and currently receives treatment on Mondays, Wednesdays, and Fridays. Her dialysis was initiated via a catheter placed at [facility] when she was hospitalized for acute kidney failure. 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 The patient is a resident at [facility] and receives dialysis at [facility]. Past medical history is negative for smoking and diabetes. She is right-handed. Her medications include Plavix and a baby aspirin; she denies taking Eliquis or Xarelto Current GFR 8 If currently on dialysis being dialyzed through right internal jugular PermCath and dialysis days include Wednesday Patient denies any previous catheter use, pacemaker or other risk factors for central venous stenosis. Patient denies any previous fistular graft placement Patient is already on dialysis Hand dominance right Patient now presents for evaluation of permanent dialysis access [facility] Medical History DVT (deep venous thrombosis) Depression Dementia Degenerative disease of nervous system, unspecified Multifactorial gait disorder Ataxia Peripheral neuropathy Arthritis Complex partial seizures Vitamin D deficiency TIA (transient ischemic attack) Seizure Alzheimer's dementia Anxiety Insomnia Osteoporosis Anemia Gait abnormality Partial symptomatic epilepsy with complex partial seizures, not intractable, without status epilepticus Asthma Pure hypercholesterolemia Peripheral arterial disease Unsteady gait Neuropathy Benign essential hypertension Alcoholism in remission Exertional dyspnea Surgical History Status post insertion of nerve stimulator Hx of foot surgery Hx of nasal septoplasty History of esophagogastroduodenoscopy (EGD) H/O colonoscopy History of angioplasty History of partial gastrectomy History of cholecystectomy History of cataract surgery History of hysterectomy History of tubal ligation S/P excision of neuroma Family History Father CVD (cardiovascular disease) Heart disease Hypertension Stroke Mother CVD (cardiovascular disease) Heart disease Asthma Maternal Grandmother No problems noted. Maternal Grandfather No problems noted. Paternal Grandmother No problems noted. Paternal Grandfather No problems noted. Maternal Aunt Tongue cancer Social History Household Members: None Housing: Apartment Housing Other:: senior housing Are you a primary post acute care nurse practitioner to a significant other at home: No Do you presently have visiting nurse or other home services: No Alcohol intake: former Comment: PT removes her alarm when in chair Patient Tobacco Use Status: Former Tobacco user e-Cigarette/Vaping Use: Never Used Second Hand Smoke Exposure: No Advance Directives Date on File: 06/12/21 service: No Current occupational status: retired Current occupational exposures/hazards: No Cognitive needs: No Hearing needs: No Vision needs: Yes Review of Systems Const All systems reviewed & are unremarkable except as noted in HPI and below Reports no additional complaints ENT Reports Normal hearing present Card Denies chest pain, Denies chest pain at rest, Denies chest pain with activity and Denies pedal edema Resp Denies cough GI Denies abdominal pain Musc Denies abnormal gait, Denies muscle cramps and Denies radiating pain into limb Skin/Breast Denies skin ulcer and Denies wounds Neuro Reports Normal hearing present and Denies abnormal gait Psych Reports no additional complaints Physical Exam Vital Signs: BMI result Body Mass Index 17.1 Const General: cooperative, healthy appearing and comfortable Orientation/consciousness: oriented to person, oriented to place and oriented to time HEENT Head: Yes normal to inspection Neck Neck: Yes normal visual inspection Carotids: no bruits Chest Chest palpation & inspection: normal inspection of the chest Resp Effort & Inspection: normal respiratory effort and able to speak in complete sentences Auscultation: clear to auscultation bilaterally, no crackles, no rales, no rhonchi and no wheezes Cardio Rate: regular rate Rhythm: regular rhythm Heart sounds: S1 normal heart sound present and S2 normal heart sound present Bruits: no carotid bruits Peripheral pulses: Peripheral pulses 2+ throughout GI Inspection: Yes normal to inspection Skin Wounds: no wounds Hair: normal Neuro General: oriented to person, oriented to place and oriented to time Cranial nerves: Yes CN's II-XII intact bilaterally and Yes Normal hearing present Cognition (Neuro): normal cognition Motor exam (neuro): 5/5 motor strength present throughout Extrem Other: Left upper extremity has palpable brachial radial ulnar pulses Bedside ultrasound I was able to appreciate a good size basilic vein in the upper arm diminutive cephalic vein. Difficult for me to interrogate General: No clubbing, No cyanosis and No edema Psych Appearance: grossly normal Mental Status: mental status grossly normal Speech and movement: Normal speech and movement present Assessment & Plan Assessment & Plan (1) End stage renal disease: Code(s): N18.6 - End stage renal disease Category: Medical Plan: In short patient has end-stage renal disease. She will require left upper extremity fistula creation. The risks benefits complications including but not limited to bleeding infection limb loss and steal were discussed in detail with patient and daughter at bedside. They were in agreement. We will try to schedule as soon as possible. We will get vein mapping. Thank you for allowing us to assist in her care. Orders: Orders US venous duplex UE LT Today N18.6 - End stage renal disease Coding Level of Care Code New Pt Level 4 (07476) Diagnoses End stage renal disease N18.6
== END 2025-02-06 15:56 | disposition home or self-care (01) ==
LOC: HO.HVS 15:21
PROVIDERS: PCP Internal Medicine; Visit Provider Surgery Vascular Surgery
DX: N18.6 End stage renal disease (principal)
CPT/HCPCS: 99204

== ENCOUNTER → 2025-02-06 15:20 | Outpatient (BNVA) | payer MEDICARE, SELFPAY | PROVIDERS: PCP Internal Medicine; Visit Provider Surgery Vascular Surgery | DX: I12.0 Hypertensive chronic kidney disease with stage 5 chronic kidney disease or end stage renal disease (principal); N18.6 End stage renal disease; Z99.2 Dependence on renal dialysis; Z87.891 Personal history of nicotine dependence | CPT/HCPCS: 99202 ==

== ENCOUNTER 2025-02-13 12:52 | Day surgery (SDC) | payer SELFPAY ==
[2025-02-13] VITALS (11 sets, daily range): BP systolic 112–154; BP diastolic 51–66; PULSE 63–71; RESP 12–17; TEMP 36.9–37.2; O2SAT 90–100; BMI 15.8
--- NOTE | ~2025-02-13 | XR_ITS ---
EXAMINATION: XR CHEST 1 VIEW HISTORY: post-thora COMPARISON: Comparison is made with the prior examination dated 01/10/2025. FINDINGS: A single AP portable view of the chest performed at 3:12 PM is submitted. A right-sided dialysis catheter is unchanged in position. The previously seen right pleural effusion is smaller after ultrasound-guided thoracentesis. The lungs are clear. There is no pneumothorax or pulmonary vascular congestion. The heart is top normal in size. The bones are intact. A catheter is again seen projecting over the spine. XR/XR chest 1V IMPRESSION: Interval decrease in size of the right pleural effusion status post ultrasound-guided thoracentesis. No pneumothorax. Electronically signed by: Umesh Bradford MD 02/13/2025 03:27 PM [facility]
--- NOTE | ~2025-02-13 | US_ITS ---
PROCEDURE: Ultrasound-guided right thoracentesis History: Bilateral pleural effusion Access: 4 Icelandic Yueh catheter Medications: 5 mL 1% lidocaine TECHNIQUE/FINDINGS Appropriate preprocedural clinical history and imaging studies were reviewed. The patient was brought to the department and placed in the seated position. Ultrasound images of the right thorax were obtained to localize a moderate pleural effusion. Permanent ultrasound images were saved. Risks and benefits and possible complications were discussed with the patient and consent form was signed. An area of the patient's right back was prepped and draped in usual sterile fashion. 10 mL of 1% lidocaine was used to obtain local anesthesia of the skin and deeper tissues. A standard small bore needle was introduced to sample pleural fluid and demonstrate a safe access route. A 5 Icelandic Yueh catheter was then used to access the pleural cavity. 1000 ml of serious fluid was removed passively. The catheter was then removed. A dressing was applied. A postprocedure chest x-ray will be performed and will be dictated separately. There were no immediate complications. US/US thoracentesis Impression: Ultrasound-guided right thoracentesis Electronically signed by: Bob Muse MD 02/13/2025 03:14 PM [facility]
--- NOTE | ~2025-02-13 | XR_ITS ---
EXAMINATION: XR CHEST CLINICAL INFORMATION: SOB, right thoracentesis earlier today COMPARISON: X-ray from 20 minutes earlier TECHNIQUE: Frontal view of the chest was obtained. FINDINGS: Small right pleural effusion blunts the costophrenic angles. There may be trace pleural fluid on the left. The lungs are hyperexpanded. There is no pneumothorax. Cardiac size is enlarged A dialysis catheter placed via the right internal jugular vein terminates in the inferior cavoatrial junction. Electrical wires course over the midline. There are syed projecting over the epigastric region. XR/XR chest 1V IMPRESSION: Small right pleural effusion and possible trace left pleural effusion. No pneumothorax. No pulmonary edema. Mild cardiomegaly. Electronically signed by: Barrie De Oliveira MD 02/13/2025 04:40 PM [facility]
[2025-02-13 13:31] LABS: INTERNATIONAL NORM RATIO 1.0 (0.9-1.1); Prothrombin Time 12.1 SEC (11.2-13.5)
[2025-02-13] MEDS: Lidocaine HCl 1 % MPF 5 ML VIAL SUBCUT (15:12)
== END 2025-02-13 16:20 | disposition home or self-care (01) ==
PROVIDERS: Radiology Diagnostic Radiology; PCP Internal Medicine; Visit Provider Physician Assistant Medical
DX: I31.39 Other pericardial effusion (noninflammatory) (principal); J91.8 Pleural effusion in other conditions classified elsewhere; N18.6 End stage renal disease; N17.9 Acute kidney failure, unspecified; Z99.2 Dependence on renal dialysis; I21.A1 Myocardial infarction type 2; R56.9 Unspecified convulsions; D64.9 Anemia, unspecified; R13.12 Dysphagia, oropharyngeal phase; E78.5 Hyperlipidemia, unspecified; E46 Unspecified protein-calorie malnutrition; G30.9 Alzheimer's disease, unspecified; F41.8 Other specified anxiety disorders; G45.9 Transient cerebral ischemic attack, unspecified; I10 Essential (primary) hypertension; Z79.82 Long term (current) use of aspirin; Z79.02 Long term (current) use of antithrombotics/antiplatelets
CPT/HCPCS: 32555; 36415; 71045; 85610; J2003

== ENCOUNTER → 2025-02-13 14:28 | Outpatient (BNV) | payer MEDICARE, SELFPAY | PROVIDERS: PCP Internal Medicine; Visit Provider Student in an Organized Health Care Education/Training Program | DX: J90 Pleural effusion, not elsewhere classified (principal); I51.7 Cardiomegaly | CPT/HCPCS: 32555; 71045 ==

== ENCOUNTER → 2025-02-19 23:59 | Outpatient (BNV) | payer MEDICARE, SELFPAY | PROVIDERS: PCP Internal Medicine; Visit Provider Internal Medicine Hypertension Specialist | DX: N18.6 End stage renal disease (principal) | CPT/HCPCS: 90961 ==

== ENCOUNTER 2025-02-26 09:00 | Outpatient (REF) | payer MEDICARE, SELFPAY ==
[2025-02-26 07:19] LABS: MANUAL DIFF FLAG NO
[2025-02-26 07:41] LABS: Hematocrit 33.4 % (37.0-47.0); Hemoglobin 10.4 g/dl (12.0-16.0); Imm Gran Abs Auto 0.03 X10*3/uL (0.00-0.03); Imm Gran Pct Auto 0.5 % (0.0-0.4); Lymphocytes Absolute Auto 1.3 X10*3/uL (1.2-4.9); Mean Corpuscular HGB Conc 31.1 g/dl (31.0-35.0); Mean Corpuscular Hemoglobin 32.0 pg (27.0-33.0); Mean Corpuscular Volume 102.8 fL (80.0-98.0); NRBC Abs Auto 0.000 X10*3/uL (0.0-0.012); NRBC Pct Auto 0.0 /100WBC (0.0-0.2); Red Blood Count 3.25 X10*6/uL (4.20-5.50); White Blood Count 5.9 X10*3/uL (4.8-10.8)
[2025-02-26 07:44] LABS: Platelet Count 168 X10*3/uL (160-400)
[2025-02-26 09:09] LABS: Anion Gap 21 (12-20); Blood Urea Nitrogen 92 mg/dL (9-16); Calcium 8.0 mg/dL (8.4-10.2); Carbon Dioxide 19 mmol/L (22-29); Chloride 107 mmol/L (96-108); Estimated Glomerular Filt Rate 7; Potassium 4.9 mmol/L (3.3-5.1); Sodium 142 mmol/L (135-145)
== END 2025-02-26 09:01 | disposition home or self-care (01) ==
LOC: HO.MMNH2L 09:00
PROVIDERS: Visit Provider Physician Assistant Medical
DX: I12.0 Hypertensive chronic kidney disease with stage 5 chronic kidney disease or end stage renal disease (principal); N18.6 End stage renal disease; G30.9 Alzheimer's disease, unspecified
CPT/HCPCS: 36415; 80048; 85025

== ENCOUNTER 2025-02-27 12:24 | Day surgery (SDC) | payer MEDICARE, SELFPAY ==
--- OUTSIDE RECORDS SUMMARY | 2025-02-23 18:23 | XMS_ITS | Clinical Summary ---
Author Organization [address] [facility] Address [address] [place] [address] Phone Care Team Providers Care Swing Frame Grinder Operator Name Role Phone Espinoza Santiago MD Primary Care Provider [phone] Allergies Active Allergy Reactions Criticality Noted Date [...] propionate (FLONASE) 50 mcg/actuation nasal spray 1 [place] by Each Nare route daily. Active clopidogreL [...] Take 1 Tab by mouth daily. Active mvejs-dy-0-dha-e wz-opyolrj-tmg (MegaRed [place]-3 Krill Oil) 352-65-86-50 mg capsule Take 1 Cap by mouth [...] back pain 01/18/2024 PVD (peripheral vascular disease) ([facility] V24) 01/18/2024 Varicose veins of bilateral lower extremities wi th pain 01/18/2024 Surgical History Surgery Date Site/Laterality Comments ANGIOPLASTY Bilateral PROCEDURE: HISTORICAL ANGIOPLASTY OTHER SURGICAL HISTORY 09/01/2022 PROCEDURE: HI SLCTV CATHJ 3RD+ ORD SLCTV ABDL PEL/LXTR BRNCH OTHER SURGICAL HISTORY 09/01/2022 PROCEDURE: HI SLCTV CATHJ EA 2ND+ ORD ABDL PEL/LXTR ART BRNCH OTHER SURGICAL HISTORY 09/01/2022 PROCEDURE: X-RAY EXAM OF ARM/LEG ARTERIES OTHER SURGICAL HISTORY 09/01/2022 PROCEDURE: X-RAY EXAM OF PELVIC ARTERIES OTHER SURGICAL HISTORY 09/01/2022 PROCEDURE: ULTRASOUND GUIDANCE FOR VASCULAR AC Medical History Medical History Date Comments PVD (peripheral vascular dis ease) ([facility] V24) DX:PVD (peripheral vascular disease) ([facility]) Varicose veins of bilateral lower extremities with pain DX:Varicose veins of bilater al lower extremities with pain Bilateral carotid artery stenosis DX:Bilateral carotid artery stenosis Lumbar back pain DX:Lumbar back pain Anxiety DX:Anxiety Depression DX:Depression Hypertension DX:Hypertension Allergies DX:Allergies Social History Tobacco Use Types Packs/Day Years Used Date Smoking Tobacco: Former Cigarettes 0 Q uit: 01/28/1988 Smokeless Tobacco: Never Comments [...] Description 05/18/2025 1:30 PM EST Ancillary Procedure [facility] [address] [place] [address] 06/28/2025 3:00 PM EDT Office Visit Vascular Surgery - [place] [address] [place] [address] Maritza Webber PA [address] [place] [address] Health Maintenance Due Date Last Done Comments [...] Documents on File Type Date Recorded Patient Licensed Funeral Director And Embalmer [facility] Decision (hx) 06/16/2020 AD RENETTA DIRECTIVE Care Teams Swing Frame Grinder Operator Relationship Specialty Start Date End Date Espinoza Santiago MD [address] [place] [address] [address] [place], [place] PCP - General Internal Medicine 02/15/13
[2025-02-27 12:46] VITALS: BMI 16.7
[2025-02-27 13:15] VITALS: BP 133/59; PULSE 95; RESP 16; TEMP 37.2; O2SAT 93
[2025-02-27 13:23] LABS: INTERNATIONAL NORM RATIO 1.0 (0.9-1.1); Prothrombin Time 12.3 SEC (11.2-13.5)
[2025-02-27 15:03] VITALS: BP 151/63; PULSE 69; RESP 16; O2SAT 92
[2025-02-27 15:15] VITALS: BP 148/63; PULSE 67; RESP 16; O2SAT 95
[2025-02-27 15:52] VITALS: BP 151/84; PULSE 73; RESP 16; TEMP 36.6; O2SAT 98
--- NOTE | 2025-02-27 16:10 | PM.EVENT ---
Documented by User: Almas Warren NP 02/27/25 16:14 Event Note Date of Service: 02/27/25 Event Note: Patient presents for HD cath repair. Neck site intact, scab with granular tissue. No erythema or pain, no fluctuance or purulent drainage. No signs for infection. 1% lidocaine was administered at the neck and catheter entry site. Two 3-0 monsof sutures utlilized at neck and one 2-0 Surgipro utilized at catheter entry site. Catheter flushed and aspirated well. 1 gram Ancef given. Flushed with heparin per protocol. Sterile dressings applied. Rec'd suture removal at neck site in 10-14 days. Decrease friction at neck site as skin integrity is very fragile. Call if any signs or symptoms of infection. Time Spent With Patient Time: Total time managing care of this patient today __30_ minutes. Documented by User: Bob Muse MD 02/28/25 16:56 Event Note Date of Service: 02/28/25
== END 2025-02-27 15:56 | disposition home or self-care (01) ==
PROVIDERS: Radiology Diagnostic Radiology; PCP Internal Medicine; Visit Provider Internal Medicine Hypertension Specialist
DX: T82.42XA Displacement of vascular dialysis catheter, initial encounter (principal); T82.49XA Other complication of vascular dialysis catheter, initial encounter; Y83.8 Other surgical procedures as the cause of abnormal reaction of the patient, or of later complication, without mention of misadventure at the time of the procedure; Y92.9 Unspecified place or not applicable; Y82.8 Other medical devices associated with adverse incidents
CPT/HCPCS: 36415; 36575; 85610; J0690; J1644; J2003

== ENCOUNTER → 2025-02-27 12:24 | Outpatient (BNV) | payer MEDICARE, SELFPAY | PROVIDERS: PCP Internal Medicine; Visit Provider Student in an Organized Health Care Education/Training Program | DX: N18.6 End stage renal disease (principal); Z49.01 Encounter for fitting and adjustment of extracorporeal dialysis catheter | CPT/HCPCS: 36575; 99499 ==

== ENCOUNTER 2025-03-05 09:34 | Outpatient (REF) | payer MEDICARE, SELFPAY ==
[2025-03-05 07:51] LABS: MANUAL DIFF FLAG NO
[2025-03-05 08:02] LABS: Hematocrit 32.0 % (37.0-47.0); Hemoglobin 10.0 g/dl (12.0-16.0); Imm Gran Abs Auto 0.01 X10*3/uL (0.00-0.03); Imm Gran Pct Auto 0.2 % (0.0-0.4); Lymphocytes Absolute Auto 1.5 X10*3/uL (1.2-4.9); Mean Corpuscular HGB Conc 31.3 g/dl (31.0-35.0); Mean Corpuscular Hemoglobin 31.6 pg (27.0-33.0); Mean Corpuscular Volume 101.3 fL (80.0-98.0); NRBC Abs Auto 0.000 X10*3/uL (0.0-0.012); NRBC Pct Auto 0.0 /100WBC (0.0-0.2); Platelet Count 152 X10*3/uL (160-400); Red Blood Count 3.16 X10*6/uL (4.20-5.50); White Blood Count 5.9 X10*3/uL (4.8-10.8)
[2025-03-05 09:24] LABS: Anion Gap 23 (12-20); Blood Urea Nitrogen 114 mg/dL (9-16); Calcium 7.8 mg/dL (8.4-10.2); Carbon Dioxide 17 mmol/L (22-29); Chloride 106 mmol/L (96-108); Estimated Glomerular Filt Rate 7; Potassium 4.6 mmol/L (3.3-5.1); Sodium 141 mmol/L (135-145)
== END 2025-03-05 09:35 | disposition home or self-care (01) ==
LOC: HO.MMNH2L 09:34
PROVIDERS: Visit Provider Physician Assistant Medical
DX: I12.0 Hypertensive chronic kidney disease with stage 5 chronic kidney disease or end stage renal disease (principal); N18.6 End stage renal disease; F02.80 Dementia in other diseases classified elsewhere, unspecified severity, without behavioral disturbance, psychotic disturbance, mood disturbance, and anxiety; G30.9 Alzheimer's disease, unspecified
CPT/HCPCS: 36415; 80048; 85025

== ENCOUNTER 2025-03-08 08:19 | Outpatient (REF) | payer MEDICARE, SELFPAY ==
--- OUTSIDE RECORDS SUMMARY | 2023-12-31 02:30 | XMS_ITS ---
Author Organization [facility] Address [address] [place] [address] Care Team Providers Care Hotel Front Desk Agent Name Role Phone Jack HYLTON, [place] Primary Care Provider Unava Umesh Rodriguez Unavailable [phone] BISHNU MCMULLEN Unavailable Unavailable REASON FOR VISIT screening,hx polyps Encounters Encounter Location Date Provider Diagnosis [facility] [place] Outpatient [address] [place], [place] [phone] 12/31/2023 Umesh Ellsworth Colon cancer scree rose [...] * MARILIN NERIISDOB: 6 (79 yo F)Acc No.[id number]:12/31/2023 COLON WITH MAC Patient: KRISSY FRAZIER Provider: Yolanda Ellsworth MD :1945 A ge:78 Y S ex:Female Date:12/31/2023 Address:[address] [place] [address] [place] Pcp:Espinoza Santiago MD Subjective: * Chief Complaints: * S creening,hx polyps Assessment: * Assessment: 1. C olon cancer screening - Z12.11 (Primary) 2 . C olon polyps - K63.5? 3. D iverticulosis of large intestine without perforation or abscess without bleeding - K57.30 4 . O ther hemorrhoids - K64.8 Plan: * Procedure Codes: 4 5385 LESION REMOVAL COLONOSCOPY, Modifiers: [place] [address] COLONOSCOPY AND BIOPSY, Modifiers: [place] [address] COLONOSCOPE, SUBMUCOUS INJ, Modifiers: 59 , [id number] INTRVL 3+YRS PTS CLNSCP DOCD, Modifiers: 1P 0528F RCMND FLW-UP 10 YRS DOCD, Modifiers: 8P Billing Information: * Procedure Codes: 09287 LESION REMOVAL COLONOSCOPY[place]: [place] [address] COLONOSCOPY AND BIOPSY. [place]ifiers: [place] [address] COLONOSCOPE, SUBMUCOUS INJ. Modifiers: 59, PT 0529F [...] MD Date: Generated for Cynthia mckeon/Michael/Elyssaitting on: 05/09/2024 08:37 AM EST
--- NOTE | ~2025-03-08 | US_ITS ---
EXAMINATION: US TRIPLEX UPPER EXTREMITY, LEFT CLINICAL INFORMATION: End-stage renal disease. Left upper extremity vein mapping for aVF creation, left COMPARISON: None available. TECHNIQUE: Color-flow triplex imaging with spectral analysis and compression Doppler was performed on the veins of the left upper extremity and brachial and radial arteries. FINDINGS: The basilic vein is patent and measures 3 to 4 mm. This is 2 to 3 mm deep from the skin surface. There are 2 branches seen off the basilic vein. The cephalic vein is patent. The cephalic vein measures between 1 and 2 mm. This is between 0 and 3 mm deep from the skin surface. The right cephalic vein measures 2 mm in diameter at the shoulder and is 3 mm deep from the skin surface. The left brachial artery is widely patent without visible plaque. This has a normal waveform and normal peak systolic velocity of 113 cm/s. This measures 3 mm in diameter and is between 3 and 4 mm deep from the skin surface. The left radial artery is patent without visible plaque. This has normal waveform and normal peak systolic velocity of 80 cm/s. This measures 2 mm in diameter and is between 2 and 5 mm deep from the skin surface. US/US venous duplex UE LT IMPRESSION: Left upper extremity vein mapping for fistula creation. Electronically signed by: Diane Landaverde MD 03/08/2025 10:06 AM CAESAR
--- OUTSIDE RECORDS SUMMARY | 2025-03-08 08:37 | XMS_ITS | Patient Health Record ---
Author [facility] Address [address] [place] [address] Care Team Providers Care Geometry Teacher Name Role Phone Fuentes Santiago MDh Primary Care Provider Ike King Unavailable [phone] Allergies Allergen (clinical drug ingredient) Drug/Non Drug [...] primary osteoarthritis of the ankle and/or foot (173167913) Primary osteoarthrit is, right ankle and foot (M19.071) Active confirmed Problem Localized, primary osteoarthritis of the ankle and/or foot (153143438) Primary osteoarthrit is, left ankle and foot (M19.072) Active confirmed Problem Acquired hammer toe of right foot (3382003699945660) Other hammer toe(s) (acquired), right foot (M20.41) Active confirmed Problem Acquired hammer toe of left foot (4759801709966733) Other hammer toe(s) (acquired), left foot (M20.42) [...] X ray : Foot, right 3V 08/02/2017 60876, [id number]/INJECT, JOINT/BURSA 0 08/30/2017 85713, [id number]/INJECT, JOINT/BURSA 1 2017 08370- Unna Boot 11/24/2017 Insurance Providers Payer Name Payer Address Payer Phone Subscriber Number Group Number Insured Name Patient Relationship to Insured Coverage Start Date Coverage End Date Medicare National Govt Svcs Inc [address] [place] [address] [id number] Cary Davis Self - patient is the insured 1 [employer] Blue Shield [address] [place] [address] [id number] Cary Davis Self - patient is the [...] Blot Clots in the legs 0 03/2017 [place] dizziness, nausea, drive hieves, deh ydration 09/27/2017 [facility] L3rd toe 01/14/2018 [facility]-sever leg pain blood clots / Afib 20 21
--- OUTSIDE RECORDS SUMMARY | 2025-03-08 08:37 | XMS_ITS | Patient Health Record ---
Author Organization [facility] Address [address] [place] [address] Care Team Providers Care Catalog Librarian Name Role Phone Jack HYLTON, [place] Primary Care Provider Umesh Stephenson Unavailable [phone] BISHNU MCMULLEN Unavailable Unavailable Allergies Allergen (clinical drug ingredient) Drug/Non Drug Allergy documented on EMR Reaction Allergy Type Onset Date Status capsaicin Capsaicin Unknown Drug Allergy Active Codeine Phosphate Unknown Drug Allergy Active Adhesive Unknown Allergy Active atorvastatin Atorvastatin Unknown Drug Allergy A ctive bacitracin Bacitracin Unknown Drug Allergy Activ e Latex Latex Unknown Allergy Active morphine Morphine Unknown Drug Allergy Active Reason For Referral No Information Medications Medication SIG (Take, Route, Frequency, Duration) Notes Start Date End Date Status Vitamin B Complex 100mg Active Vitamin C 1000 MG Tablet 1 tablet Orally Once a day; Duration: 30 day(s) Active lamoTRIgine 200 MG Tablet TAKE 1 TABLET BY MOUTH EVERY MORNING Oral; Duration: 90 Active MiraLax Not-Taking /PRN Clopidogrel Bisulfate 75 MG Tablet TAKE 1 TABLET BY MOUTH EVERY DAY Oral; Duration: 90 Active Multivitamin Adults 50+ - Tablet as directed Orally Active Campral 333mg Not-Ta saad/PRN Aspirin 81 81 MG Tablet Delayed Release 1 tablet Orally Once a day; Duration: 30 day(s) Active tiZANidine HCl 2 MG Tablet Oral; Duration: 90 Active Sertraline HCl 50 MG Tablet Oral; Duration: 90 Active Albuterol Sulfate HFA 108 (90 Base) MCG/ACT Aerosol Solution INHALE 2 PUFFS BY MOUTH EVERY 6 HOURS NEEDED FOR BRONCHOSPASM Inhalation; Duration: 25 Active Topiramate 25 MG Tablet Oral; Duration: 90 Active Diovan 80mg Not-Taki ng/PRN ZyrTEC 10mg Not-Taki ng/PRN Folic Acid 1mg Not-T aking/PRN Melatonin 3mg Not-Ta saad/PRN DULoxetine HCl 30 MG Capsule Delayed Release Particles TAKE 1 CAPSULE BY MOUTH TWICE A DAY Oral; Duration: 90 Active traZODone HCl 100 MG Tablet TAKE 1 TO 2 TABLETS BY MOUTH AT BEDTIME NEEDED Oral; Duration: 90 Active clonazePAM 1mg Activ e Vitamin D-3 2000u Ac tive Glucosamine 1500mg A ctive Flovent HFA 110mcg A ctive ProAir HFA 99mcg Act lidia Immunizations Vaccine Route Administration Date Status Comme nts Influenza Unknown 11/20/2018 Administered Social History Social History Additional Details Category Social Info Options Details Miscellaneous: Marital status: Occupation: Retired Section Notes: Does not smoke; alcoholic, w ith sobriety x 2 months Does not smoke; alcoholic, w ith sobriety x 6 months Does not smoke; alcoholic, w ith sobriety x 2 months Quit smoking in 1987; former alcoholic with sobriety since 2010 Quit smoking in 1987; former alcoholic with sobriety since 2010 Quit smoking in 1987; former alcoholic with sobriety since 2010 Problems Problem Type SNOMED Code ICD Code Onset Dates Problem Status W/U Status Risk Notes Problem Colon cancer screening (449238290) Colon cancer screening (Z12.11) Active confirmed Problem Screening for malignant neoplasm of colon (497394022) Encounter for screening for malignant neoplasm of colon (Z12.11) Active confirmed Problem History of adenomatous polyp of colon (523679773) History of adenomatous polyp of colon (Z86.010) Active confirmed Problem History of polyp of colon (situation) (111688108) Personal history of colonic polyps (Z86.010) Active confirmed Problem Diverticular disease of colon (744631459) Diverticulosis of large intestine without perforation or abscess without bleeding (K57.30) Active confirmed Problem Screening for malignant neoplasm of rectum (747767814) Encounter for screening for malignant neoplasm of rectum (Z12.12) Active confirmed Problem Anemia (921196636) Anemia (D64.9) Active confirmed Problem Iron deficiency anemia (17434788) Other iron deficiency anemia (D50.8) Active confirmed Problem Irritable bowel syndrome (60767038) 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) Active confirmed Problem Long-term current use of anticonvulsant (19617744285219) Long-term current use of anticonvulsant (Z79.899) Active confirmed Problem Adenoma of transverse colon (834799177) Adenoma of transverse colon (D12.3) Active confirmed Problem History of drug therapy (576838362) H/O long-term (current) use of anticoagulants (Z92.29) Active confirmed Encounters Encounter Location Date Provider Diagnosis [facility] [address] [place] [address] 05/04/2024 Umesh Ellsworth [facility] [address] [place] [address] 06/20/2024 Umesh Ellsworth Plan Of Treatment Pending [...] Date MEDICARE OF [place] [address] CLAIRTONKATHYennifer HICKS [place] [address] [phone] [id number] KRISSY NERI Self - patient is the insured [employer] ATT[employer] CLAIMS [address] [place] [address] [id number] KRISSY NERI Self - patient is the insured Medical (General) History Medical History History ICD Code Asthma Anxiety/depression Alcohol abuse---abstinenet 2010 Denies GA,DM,CVA,renal disease IBS--negative duodenal and c olonic biopsies in 06/2011--no microscopic colitis, no celiac disease Tubular adenomas removed in 2002, 2003, and 2005---negative colonoscopy in 06/2011 GERD--EGD in 06/2011--no esophagitis, nor mal duodenl biopsies TIA in 2013--transient left-sided weakne ss HTN PAD Varicose veins TIA /w seizure DVT's-needed thrombectomies-sees Dr. Cecily taylor at [facility] Chronic anemia in relation to her [...] surgery-bone spurs--both feet NEVRO Senza Spine Stimulator [phone] for pain put in by Dr. Sebastian 01/2023
--- OUTSIDE RECORDS SUMMARY | 2025-03-08 08:37 | XMS_ITS | Clinical Summary ---
Author Organization [address] [facility] Address [address] [place] [address] Phone Care Team Providers Care 2Nd Grade Teacher Name Role Phone Espinoza Santiago MD Primary Care Provider [phone] Allergies Active Allergy Reactions Criticality Noted Date [...] propionate (FLONASE) 50 mcg/actuation nasal spray 1 [place] by Each Nare route daily. Active clopidogreL [...] Take 1 Tab by mouth daily. Active rrmqc-cg-4-dha-e rf-pjmksvc-pmo (MegaRed [place]-3 Krill Oil) 915-19-07-50 mg capsule Take 1 Cap by mouth [...] back pain 01/18/2024 PVD (peripheral vascular disease) 01/18/2024 Varicose veins of bilateral lower extremities wi th pain 01/18/2024 Surgical History Surgery Date Site/Laterality Comments ANGIOPLASTY Bilateral PROCEDURE: HISTORICAL ANGIOPLASTY OTHER SURGICAL HISTORY 09/01/2022 PROCEDURE: [place] SLCTV CATHJ 3RD+ ORD SLCTV ABDL PEL/LXTR BRNCH OTHER SURGICAL HISTORY 09/01/2022 PROCEDURE: [place] SLCTV CATHJ EA 2ND+ ORD ABDL PEL/LXTR ART BRNCH OTHER SURGICAL HISTORY 09/01/2022 PROCEDURE: X-RAY EXAM OF ARM/LEG ARTERIES OTHER SURGICAL HISTORY 09/01/2022 PROCEDURE: X-RAY EXAM OF PELVIC ARTERIES OTHER SURGICAL HISTORY 09/01/2022 PROCEDURE: ULTRASOUND GUIDANCE FOR VASCULAR AC Medical History Medical History Date Comments PVD (peripheral vascular dis ease) (CMS/HCC V24) DX:PVD (peripheral vascular disease) ([facility]) Varicose veins of bilateral lower extremities with [...] on file Sexual Orientation Not on file Last Filed Vital Signs Vital Sign Reading [...] Description 05/18/2025 1:30 PM EST Ancillary Procedure [facility] [address] [place] [address] 06/28/2025 3:00 PM EDT Office Visit Vascular Surgery - [place] [address] [place] [address] Maritza Webber PA [address] [place] [address] Health Maintenance Due Date Last Done Comments Drug Screen 1945 Non-Opioid Controlled Substance Agreement 1945 Hepatitis A Vaccines (1 of 2 - [...] Additional history exists Influenza Vaccine (#1) 2024 4, 12/04/2022, 01/13/2022, Additional history exists DTaP,Tdap,and Td [...] Documents on File Type Date Recorded Patient Self Propelled Dredge Operator Expl anation Health Care Decision (hx) 06/16/2020 AD RENETTA DIRECTIVE Care Teams 2Nd Grade Teacher Relationship Specialty Start Date End Date Espinoza Santiago MD [address] [place] [address] [address] [place] PCP - General Internal Medicine 02/15/13
== END 2025-03-08 08:20 | disposition home or self-care (01) ==
LOC: HO.US 08:19
PROVIDERS: PCP Internal Medicine; Visit Provider Surgery Vascular Surgery
DX: Z01.810 Encounter for preprocedural cardiovascular examination (principal); N18.6 End stage renal disease
CPT/HCPCS: 93971

== ENCOUNTER → 2025-03-08 08:24 | Outpatient (BNV) | payer MEDICARE, SELFPAY | PROVIDERS: PCP Internal Medicine; Visit Provider Radiology Diagnostic Radiology | DX: N18.6 End stage renal disease (principal); M25.1 Fistula of joint | CPT/HCPCS: 93971 ==

== ENCOUNTER 2025-03-12 07:12 | Outpatient (REF) | payer MEDICARE, SELFPAY ==
--- OUTSIDE RECORDS SUMMARY | 2023-12-31 02:30 | XMS_ITS ---
Author Organization [facility] Address [address] [place] [address] Care Team Providers Care Trade Show Coordinator Name Role Phone Jack HYLTON, [place] Primary Care Provider Unava Umesh Rodriguez Unavailable [phone] BISHNU MCMULLEN Unavailable Unavailable REASON FOR VISIT screening,hx polyps Encounters Encounter Location Date Provider Diagnosis [facility] Outpatient [address] [place], [place] [phone] 12/31/2023 Umesh Ellsworth Colon cancer scree rose [...] * MARILIN NERIISDOB: 6 (79 yo F)Acc No.[id number]:12/31/2023 COLON WITH MAC Patient: KRISSY FRAZIER Provider: Yolanda Ellsworth MD :1945 A ge:78 Y S ex:Female Date:12/31/2023 Address:[address] [place] [address] [place] Pcp:Espinoza Santiago MD Subjective: * Chief Complaints: * S creening,hx polyps Assessment: * Assessment: 1. C olon cancer screening - Z12.11 (Primary) 2 . C olon polyps - K63.5? 3. D iverticulosis of large intestine without perforation or abscess without bleeding - K57.30 4 . O ther hemorrhoids - K64.8 Plan: * Procedure Codes: 4 5385 LESION REMOVAL COLONOSCOPY, Modifiers: [place] [address] COLONOSCOPY AND BIOPSY, Modifiers: [place] [address] COLONOSCOPE, SUBMUCOUS INJ, Modifiers: 59 , [id number] INTRVL 3+YRS PTS CLNSCP DOCD, Modifiers: 1P 0528F RCMND FLW-UP 10 YRS DOCD, Modifiers: 8P Billing Information: * Procedure Codes: 70747 LESION REMOVAL COLONOSCOPY. [place]: [place] [address] COLONOSCOPY AND BIOPSY. Modifiers: [place] [address] COLONOSCOPE, SUBMUCOUS INJ. Modifiers: 59, PT 0529F [...] MD Date: Generated for Cynthia mckeon/Michael/Elyssaitting on: 05/13/2024 07:15 AM EST
[2025-03-12 06:36] LABS: MANUAL DIFF FLAG NO
[2025-03-12 06:39] LABS: Hematocrit 31.4 % (37.0-47.0); Hemoglobin 9.7 g/dl (12.0-16.0); Imm Gran Abs Auto 0.01 X10*3/uL (0.00-0.03); Imm Gran Pct Auto 0.2 % (0.0-0.4); Lymphocytes Absolute Auto 1.7 X10*3/uL (1.2-4.9); Mean Corpuscular HGB Conc 30.9 g/dl (31.0-35.0); Mean Corpuscular Hemoglobin 31.5 pg (27.0-33.0); Mean Corpuscular Volume 101.9 fL (80.0-98.0); NRBC Abs Auto 0.000 X10*3/uL (0.0-0.012); NRBC Pct Auto 0.0 /100WBC (0.0-0.2); Platelet Count 169 X10*3/uL (160-400); Red Blood Count 3.08 X10*6/uL (4.20-5.50); White Blood Count 4.9 X10*3/uL (4.8-10.8)
[2025-03-12 07:03] LABS: Anion Gap 17 (12-20); Blood Urea Nitrogen 47 mg/dL (9-16); Calcium 8.0 mg/dL (8.4-10.2); Carbon Dioxide 26 mmol/L (22-29); Chloride 104 mmol/L (96-108); Estimated Glomerular Filt Rate 13; Potassium 3.7 mmol/L (3.3-5.1); Sodium 143 mmol/L (135-145)
--- OUTSIDE RECORDS SUMMARY | 2025-03-12 07:15 | XMS_ITS | Patient Health Record ---
Author Organization [facility] Address [address] [place] [address] Care Team Providers Care Legal Collector Name Role Phone Fuentes Santiago MDh Primary Care Provider Ike King Unavailable [phone] Allergies Allergen (clinical drug ingredient) Drug/Non Drug [...] primary osteoarthritis of the ankle and/or foot (795700804) Primary osteoarthrit is, right ankle and foot (M19.071) Active confirmed Problem Localized, primary osteoarthritis of the ankle and/or foot (708751918) Primary osteoarthrit is, left ankle and foot (M19.072) Active confirmed Problem Acquired hammer toe of right foot (4769531850966087) Other hammer toe(s) (acquired), right foot (M20.41) Active confirmed Problem Acquired hammer toe of left foot (0259743258039934) Other hammer toe(s) (acquired), left foot (M20.42) [...] X ray : Foot, right 3V 08/02/2017 70239, [id number], JOINT/BURSA 0 08/30/2017 14980, [id number]/[id number], JOINT/BURSA 1 2017 81121- Unna Boot 11/24/2017 Insurance Providers Payer Name Payer Address Payer Phone Subscriber Number Group Number Insured Name Patient Relationship to Insured Coverage Start Date Coverage End Date Medicare National Govt Svcs Inc [address] [facility] [place] [address] [id number] Cary Davis Self - patient is the insured 1 [employer] Blue Shield [address] [place] [address] [id number] Cary Davis Self - patient is the [...] Blot Clots in the legs 0 03/2017 [facility] dizziness, nausea, drive hieves, deh ydration 09/27/2017 [facility] L3rd toe 01/14/2018 [facility]-sever leg pain blood clots / Afib 20 21
--- OUTSIDE RECORDS SUMMARY | 2025-03-12 07:15 | XMS_ITS | Patient Health Record ---
Author Organization [facility] Address [address] [place] [address] Care Team Providers Care Station Attendant Name Role Phone Jack HYLTON, [place] Primary Care Provider Umesh Stephenson Unavailable [phone] BISHNU MCMULLEN Unavailable Unavailable Allergies Allergen (clinical [...] Status Risk Notes Problem Colon cancer screening (765804839) Colon cancer screening (Z12.11) Active confirmed Problem Screening for malignant neoplasm of colon (694154961) Encounter for screening for malignant neoplasm of colon (Z12.11) Active confirmed Problem History of adenomatous polyp of colon (532963578) History of adenomatous polyp of colon (Z86.010) Active confirmed Problem History of polyp of colon (situation) (442972865) Personal history of colonic polyps (Z86.010) Active confirmed Problem Diverticular disease of colon (475134571) Diverticulosis of large intestine without perforation or abscess without bleeding (K57.30) Active confirmed Problem Screening for malignant neoplasm of rectum (543146590) Encounter for screening for malignant neoplasm of rectum (Z12.12) Active confirmed Problem Anemia (191843047) Anemia (D64.9) Active confirmed Problem Iron deficiency anemia (49037857) Other iron deficiency anemia (D50.8) Active confirmed Problem Irritable bowel syndrome (83893073) 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) Active confirmed Problem Long-term current use of anticonvulsant (47082745033010) Long-term current use of anticonvulsant (Z79.899) Active confirmed Problem Adenoma of transverse colon (075962794) Adenoma of transverse colon (D12.3) Active confirmed Problem History of drug therapy (818275738) H/O long-term (current) use of anticoagulants (Z92.29) Active confirmed Encounters Encounter Location Date Provider Diagnosis [facility] [address] [place] [address] 05/04/2024 Umesh Ellsworth [facility] [address] [place] [address] 06/20/2024 Umesh Ellsworth Plan Of Treatment Pending [...] Date MEDICARE OF [place] [address] TRINITYKATHYennifer HICKS [place]ARTÍN [address] [phone] [id number] KRISSY NERI Self - patient is the insured MED[employer] ATTN CLAIMS [address] [place] [address] [id number] KRISSY NERI Self - patient is the insured Medical (General) History Medical History History ICD Code Asthma Anxiety/depression Alcohol abuse---abstinenet 2010 Denies NM,DM,CVA,renal disease IBS--negative duodenal and c olonic biopsies in 06/2011--no microscopic colitis, no celiac disease Tubular adenomas removed in 2002, 2003, and 2005---negative colonoscopy in 06/2011 GERD--EGD in 06/2011--no esophagitis, nor mal duodenl biopsies TIA in 2013--transient left-sided weakne ss HTN PAD Varicose veins TIA /w seizure DVT's-needed thrombectomies-sees Dr. Cecily taylor at [facility] Chronic anemia in relation to her [...] surgery-bone spurs--both feet NEVRO Senza Spine Stimulator [phone]//[phone] for pain put in by Dr. Sebastian 01/2023
--- OUTSIDE RECORDS SUMMARY | 2025-03-12 07:15 | XMS_ITS | Clinical Summary ---
Author Organization [address] [facility] Address [address] [place] [address] Phone Care Team Providers Care Qa Specialist Name Role Phone Espinoza Santiago MD Primary Care Provider [phone] Allergies Active Allergy Reactions Criticality Noted Date [...] propionate (FLONASE) 50 mcg/actuation nasal spray 1 [place] by Each Nare route daily. Active clopidogreL [...] Take 1 Tab by mouth daily. Active iwuvt-ts-9-dha-e mn-qiqlozh-kvy (MegaRed [place]-3 Krill Oil) 359-39-26-50 mg capsule Take 1 Cap by mouth [...] HISTORICAL ANGIOPLASTY OTHER SURGICAL HISTORY 09/01/2022 PROCEDURE: [place] SLCTV CATHJ 3RD+ ORD SLCTV ABDL PEL/LXTR BRNCH OTHER SURGICAL HISTORY 09/01/2022 PROCEDURE: [place] SLCTV CATHJ EA 2ND+ ORD ABDL PEL/LXTR ART BRNCH OTHER SURGICAL HISTORY 09/01/2022 PROCEDURE: X-RAY EXAM OF ARM/LEG ARTERIES OTHER SURGICAL HISTORY 09/01/2022 PROCEDURE: X-RAY EXAM OF PELVIC ARTERIES OTHER SURGICAL HISTORY 09/01/2022 PROCEDURE: ULTRASOUND GUIDANCE FOR VASCULAR AC Medical History Medical History Date Comments PVD (peripheral vascular dis ease) (CMS/HCC V24) DX:PVD (peripheral vascular disease) ([facility]) Varicose veins of bilateral lower extremities [...] Description 05/18/2025 1:30 PM EST Ancillary Procedure [facility] - [address] [place] [address] 06/28/2025 3:00 PM EDT Office Visit Vascular Surgery - [place] [address] [place] [address] Maritza Webber PA [address] [place] [address] Health Maintenance Due Date Last Done Comments [...] Documents on File Type Date Recorded Patient Nursing Staffing Coordinator Expl anation Health Care Decision (hx) 06/16/2020 AD RENETTA DIRECTIVE Care Teams Qa Specialist Relationship Specialty Start Date End Date Espinoza Santiago MD [address] [place] [address] [address] [place] PCP - General Internal Medicine 02/15/13
== END 2025-03-12 07:13 ==
LOC: HO.MMNH2L 07:12
PROVIDERS: Visit Provider Physician Assistant Medical
DX: I12.0 Hypertensive chronic kidney disease with stage 5 chronic kidney disease or end stage renal disease (principal); N18.6 End stage renal disease; G30.9 Alzheimer's disease, unspecified; F02.80 Dementia in other diseases classified elsewhere, unspecified severity, without behavioral disturbance, psychotic disturbance, mood disturbance, and anxiety
CPT/HCPCS: 36415; 80048; 85025

== ENCOUNTER 2025-03-14 11:04 | Outpatient (AMB) | payer MEDICARE, SELFPAY ==
--- OUTSIDE RECORDS SUMMARY | 2023-12-31 02:30 | XMS_ITS ---
Author Organization [facility] Address [address] [place] [address] Care Team Providers Care Product Builder Name Role Phone Jack HYLTON, [place] Primary Care Provider Unava Umesh Rodriguez Unavailable [phone] BISHNU MCMULLEN Unavailable Unavailable REASON FOR VISIT screening,hx polyps Encounters Encounter Location Date Provider Diagnosis [facility] Out[place] [address] [place], [place] [phone] 12/31/2023 Umesh Ellsworth Colon cancer scree rose Z12.11 ; Colon polyps K63.5 ; Diverticulosis of large intestine without perforation or abscess without bleeding K57.30 and Other hemorrhoids K64.8 Assessments Encounter Date Diagnosis (ICD Code) Assessment Notes Treatment Notes Treatment Clinical Notes Section Notes 12/31/2023 Colon cancer screening (ICD-10 - Z12.11) 12/31/2023 Colon polyps (ICD-10 - K63.5) 12/31/2023 Diverticulosis of large intestine without perforation or abscess without bleeding (ICD-10 - K57.30) 12/31/2023 Other hemorrhoids (ICD-10 - K64.8) Plan Of Treatment No Information Progress Notes * MARILIN NERIISDOB: 6 (79 yo F)Acc No.[id number]:12/31/2023 COLON WITH MAC Patient: KRISSY FRAZIER Provider: Yolanda Ellsworth MD :1945 A ge:78 Y S ex:Female Date:12/31/2023 Address:[address] [place] [address] [place] Pcp:Espinoza Santiago MD Subjective: * Chief Complaints: * S creening,hx polyps Assessment: * Assessment: 1. C olon cancer screening - Z12.11 (Primary) 2 . C olon polyps - K63.5? 3. D iverticulosis of large intestine without perforation or abscess without bleeding - K57.30 4 . O ther hemorrhoids - K64.8 Plan: * Procedure Codes: 4 5385 LESION REMOVAL COLONOSCOPY, Modifiers: [place] [address] COLONOSCOPY [place] BIOPSY, [place]: [place] [address] COLONOSCOPE, SUBMUCOUS INJ, Modifiers: 59 , [id number] INTRVL 3+YRS PTS CLNSCP DOCD, Modifiers: 1P 0528F RCMND FLW-UP 10 YRS DOCD, Modifiers: 8P Billing Information: * Procedure Codes: 51314 LESION REMOVAL COLONOSCOPY. [place]: [place] [address] COLONOSCOPY AND BIOPSY. Modifiers: [place] [address] COLONOSCOPE, SUBMUCOUS INJ. Modifiers: 59, PT 0529F INTRVL 3+YRS PTS CLNSCP DOCD. Modifiers: 1P 0528F RCMND FLW-UP 10 YRS DOCD. Modifiers: 8P * The named appointment provid er may or may not be the originator of this progress note, and it is not deemed complete until electronically signed by the appointment provider. Sign off status: Pending * Provider: Yolanda Ellsworth MD Date: Generated for Cynthia mckeon/Michael/Elyssaitting on: 05/15/2024 11:10 AM EST
--- NOTE | 2025-03-14 11:05 | A.OFFVIS_ITS ---
Vital Signs 03/14/25 11:06 Height 5 ft 6 in Weight 100 lb BMI 16.1 Intake Visit Reasons: follow up s/p vein mapping US Intake Note: follow up venous mapping Left UE 03/08/25, Dialysis m, w, wednesday. Auto Inspector Required: No Allergies morphine (Morphine) Allergy (Severe, Verified 03/14/25 11:08) VOMITING/HALLUCINATIONS codeine (Codeine) Allergy (Intermediate, Verified 03/14/25 11:08) VOMITING/HALLUCINATIONS, nause/extended abdomen latex Allergy (Unknown, Verified 03/14/25 11:08) Unknown atorvastatin Adverse Reaction (Intermediate, Verified 03/14/25 11:08) fever, chills, abd pain, numbness capsaicin (CAPSAICIN) Adverse Reaction (Intermediate, Verified 03/14/25 11:08) BURNING bacitracin Allergy (Intermediate, Uncoded 03/14/25 11:08) redness and itching adhesives Allergy (Mild, Uncoded 03/14/25 11:08) rash HPI HPI follow up s/p vein mapping US: Details: The patient is a 79 year old female presenting for preoperative evaluation for creation of an arteriovenous fistula for hemodialysis access. She has end-stage renal disease and receives hemodialysis on a Wednesday, Wednesday, and Wednesday schedule at the [facility] dialysis unit. The patient is right-handed. Her past medical history is significant for PA Michelle, for which she takes Plavix. T she has been followed by [facility] for what I believe is PA D. She has had prior intervention and appears to be doing relatively well from that. Of note she is right-hand dominant. She now presents for evaluation for permanent dialysis access. She presents with vein mapping [facility] Medical History Visual loss, right eye Peripheral vascular disease Pericardial effusion Myocardial infarct DVT (deep venous thrombosis) Depression Dementia Degenerative disease of nervous system, unspecified Multifactorial gait disorder Ataxia Peripheral neuropathy Arthritis Complex partial seizures Vitamin D deficiency TIA (transient ischemic attack) Seizure Alzheimer's dementia Anxiety Insomnia Osteoporosis Anemia Gait abnormality Partial symptomatic epilepsy with complex partial seizures, not intractable, without status epilepticus Asthma Pure hypercholesterolemia Peripheral arterial disease Unsteady gait Neuropathy Benign essential hypertension Alcoholism in remission Exertional dyspnea Surgical History Status post insertion of nerve stimulator Hx of foot surgery Hx of nasal septoplasty History of esophagogastroduodenoscopy (EGD) H/O colonoscopy History of angioplasty History of partial gastrectomy History of cholecystectomy History of cataract surgery History of hysterectomy History of tubal ligation S/P excision of neuroma Family History Father CVD (cardiovascular disease) Heart disease Hypertension Stroke Mother CVD (cardiovascular disease) Heart disease Asthma Maternal Grandmother No problems noted. Maternal Grandfather No problems noted. Paternal Grandmother No problems noted. Paternal Grandfather No problems noted. Maternal Aunt Tongue cancer Social History Household Members: None Housing: Apartment Housing Other:: senior housing Are you a primary career services assistant to a significant other at home: No Do you presently have visiting nurse or other home services: No Alcohol intake: former Comment: PT removes her alarm when in chair Patient Tobacco Use Status: Former Tobacco user e-Cigarette/Vaping Use: Never Used Second Hand Smoke Exposure: No Advance Directives Date on File: 06/12/21 service: No Current occupational status: retired Current occupational exposures/hazards: No Cognitive needs: No Hearing needs: No Vision needs: Yes Review of Systems Const All systems reviewed & are unremarkable except as noted in HPI and below Reports no additional complaints ENT Reports Normal hearing present Card Denies chest pain, Denies chest pain at rest, Denies chest pain with activity and Denies pedal edema Resp Denies cough GI Denies abdominal pain Musc Denies abnormal gait, Denies muscle cramps and Denies radiating pain into limb Skin/Breast Denies skin ulcer and Denies wounds Neuro Reports Normal hearing present and Denies abnormal gait Psych Reports no additional complaints Physical Exam Vital Signs: BMI result Body Mass Index 16.1 Const General: cooperative, healthy appearing and comfortable Orientation/consciousness: oriented to person, oriented to place and oriented to time HEENT Head: Yes normal to inspection Neck Neck: Yes normal visual inspection Carotids: no bruits Chest Chest palpation & inspection: normal inspection of the chest Resp Effort & Inspection: normal respiratory effort and able to speak in complete sentences Auscultation: clear to auscultation bilaterally, no crackles, no rales, no rhonchi and no wheezes Cardio Rate: regular rate Rhythm: regular rhythm Heart sounds: S1 normal heart sound present and S2 normal heart sound present Bruits: no carotid bruits Peripheral pulses: Peripheral pulses 2+ throughout GI Inspection: Yes normal to inspection Skin Wounds: no wounds Hair: normal Neuro General: oriented to person, oriented to place and oriented to time Cranial nerves: Yes CN's II-XII intact bilaterally and Yes Normal hearing present Cognition (Neuro): normal cognition Motor exam (neuro): 5/5 motor strength present throughout Extrem Other: venous exam: No significant superficial varicosities or spider telangiectasias, minimal edema General: No clubbing, No cyanosis and No edema Psych Appearance: grossly normal Mental Status: mental status grossly normal Speech and movement: Normal speech and movement present Results Reviewed Results Reviewed: Vein mapping from 03/08/2025 was reviewed and demonstrates left upper extremity basilic vein as most ideal. Assessment & Plan Assessment & Plan (1) End stage renal disease: Code(s): N18.6 - End stage renal disease Category: Medical Plan: In short patient will require left upper extremity fistula creation. Risks benefits complications including but not limited to bleeding infection steal and limb loss were discussed in detail with the patient she understood and would like to move forward. We will try to schedule as soon as possible. Thank you for allowing us to assist in her care. Coding Level of Care Code Est Pt Level 4 (46529) Diagnoses End stage renal disease N18.6
[2025-03-14 11:06] VITALS: BMI 16.1
--- OUTSIDE RECORDS SUMMARY | 2025-03-14 11:10 | XMS_ITS | Patient Health Record ---
Author Organization [facility] Address [address] [place] [address] Care Team Providers Care Renal Medicine Physician Name Role Phone Fuentes Santiago MDh Primary Care Provider Ike King Unavailable [phone] Allergies Allergen (clinical drug ingredient) Drug/Non Drug [...] primary osteoarthritis of the ankle and/or foot (436197147) Primary osteoarthrit is, right ankle and foot (M19.071) Active confirmed Problem Localized, primary osteoarthritis of the ankle and/or foot (497226422) Primary osteoarthrit is, left ankle and foot (M19.072) Active confirmed Problem Acquired hammer toe of right foot (8977090115397982) Other hammer toe(s) (acquired), right foot (M20.41) Active confirmed Problem Acquired hammer toe of left foot (8333367249219493) Other hammer toe(s) (acquired), left foot (M20.42) [...] X ray : Foot, right 3V 08/02/2017 79293, [id number]/[id number], JOINT/BURSA 0 08/30/2017 17728, [id number]/[id number], JOINT/BURSA 1 2017 40838- Unna Boot 11/24/2017 Insurance Providers Payer Name Payer Address Payer Phone Subscriber Number Group Number Insured Name Patient Relationship to Insured Coverage Start Date Coverage End Date Medicare National Govt Svcs Inc [address] [place] [address] [id number] Cary Davis Self - patient is the insured 1 [employer]ex Blue Shield [address] [place] [address] [id number] Cary Davis Self - patient is the [...] Blot Clots in the legs 0 03/2017 [facility] dizziness, nausea, drive hieves, deh ydration 09/27/2017 [facility] L3rd toe 01/14/2018 [facility]-sever leg pain blood clots / Afib 20 21
--- OUTSIDE RECORDS SUMMARY | 2025-03-14 11:10 | XMS_ITS | Clinical Summary ---
Author Organization [address] [facility] Address [address] [place] [address] Phone Care Team Providers Care Forensic Photographer Name Role Phone Espinoza Santiago MD Primary Care Provider [phone] Allergies Active Allergy Reactions Criticality Noted Date [...] propionate (FLONASE) 50 mcg/actuation nasal spray 1 [place] by Each Nare route daily. Active clopidogreL [...] Take 1 Tab by mouth daily. Active upqxg-mu-1-dha-e un-reymehj-oqz (MegaRed [place]-3 Krill Oil) 840-85-95-50 mg capsule Take 1 Cap by mouth [...] HISTORICAL ANGIOPLASTY OTHER SURGICAL HISTORY 09/01/2022 PROCEDURE: [place] SLCTV CATHJ 3RD+ ORD SLCTV ABDL PEL/LXTR BRNCH OTHER SURGICAL HISTORY 09/01/2022 PROCEDURE: [place] SLCTV CATHJ EA 2ND+ ORD ABDL PEL/LXTR ART BRNCH OTHER SURGICAL HISTORY 09/01/2022 PROCEDURE: X-RAY EXAM OF ARM/LEG ARTERIES OTHER SURGICAL HISTORY 09/01/2022 PROCEDURE: X-RAY EXAM OF PELVIC ARTERIES OTHER SURGICAL HISTORY 09/01/2022 PROCEDURE: ULTRASOUND GUIDANCE FOR VASCULAR AC Medical History Medical History Date Comments PVD (peripheral vascular dis ease) (CMS/HCC V24) DX:PVD (peripheral vascular disease) ([facility]) Varicose veins of bilateral lower extremities with [...] 05/18/2025 1:30 PM EST Ancillary Procedure [facility] - [address] [place] [address] 06/28/2025 3:00 PM EDT Office Visit Vascular Surgery - [place] [address] [place] [address] Maritza Webber PA [address] [place] [address] Health Maintenance Due Date Last Done Comments [...] Documents on File Type Date Recorded Patient Snow Plow Operator Expl anation Health Care Decision (hx) 06/16/2020 AD RENETTA DIRECTIVE Care Teams Forensic Photographer Relationship Specialty Start Date End Date Espinoza Santiago MD [address] [place] [address] [address] [place] PCP - General Internal Medicine 02/15/13
--- OUTSIDE RECORDS SUMMARY | 2025-03-14 11:10 | XMS_ITS | Patient Health Record ---
Author Organization [facility] Address [address] [place] [address] Care Team Providers Care Site Promotion Agent Name Role Phone Jack HYLTON, [place] Primary Care Provider Umesh Stephenson Unavailable [phone] BISHNU MCMULLEN Unavailable Unavailable Allergies Allergen (clinical [...] Status Risk Notes Problem Colon cancer screening (828233980) Colon cancer screening (Z12.11) Active confirmed Problem Screening for malignant neoplasm of colon (403126162) Encounter for screening for malignant neoplasm of colon (Z12.11) Active confirmed Problem History of adenomatous polyp of colon (023754432) History of adenomatous polyp of colon (Z86.010) Active confirmed Problem History of polyp of colon (situation) (522406277) Personal history of colonic polyps (Z86.010) Active confirmed Problem Diverticular disease of colon (685228180) Diverticulosis of large intestine without perforation or abscess without bleeding (K57.30) Active confirmed Problem Screening for malignant neoplasm of rectum (213766978) Encounter for screening for malignant neoplasm of rectum (Z12.12) Active confirmed Problem Anemia (487389852) Anemia (D64.9) Active confirmed Problem Iron deficiency anemia (17123590) Other iron deficiency anemia (D50.8) Active confirmed Problem Irritable bowel syndrome (36173659) 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) Active confirmed Problem Long-term current use of anticonvulsant (30937105195643) Long-term current use of anticonvulsant (Z79.899) Active confirmed Problem Adenoma of transverse colon (737430611) Adenoma of transverse colon (D12.3) Active confirmed Problem History of drug therapy (236106407) H/O long-term (current) use of anticoagulants (Z92.29) Active confirmed Encounters Encounter Location Date Provider Diagnosis [facility] [address] [place] [address] 05/04/2024 Umesh Ellsworth [facility] [address] [place] [address] 06/20/2024 Umesh Ellsworth Plan Of Treatment Pending [...] Date MEDICARE OF [place] [address] BIRCHLEAFKATHYennifer HICKS [place]ARTÍN [address] [phone] [id number] KRISSY NERI Self - patient is the insured [employer] ATT[employer] CLAIMS [address] [place] [address] [id number] KRISSY NERI Self - patient is the insured Medical (General) History Medical History History ICD Code Asthma Anxiety/depression Alcohol abuse---abstinenet 2010 Denies CA,DM,CVA,renal disease IBS--negative duodenal and c olonic biopsies in 06/2011--no microscopic colitis, no celiac disease Tubular adenomas removed in 2002, 2003, and 2005---negative colonoscopy in 06/2011 GERD--EGD in 06/2011--no esophagitis, nor mal duodenl biopsies TIA in 2013--transient left-sided weakne ss HTN PAD Varicose veins TIA /w seizure DVT's-needed thrombectomies-sees Dr. Cecily taylor at [facility] Chronic anemia in relation to her previo [...] surgery-bone spurs--both feet NEVRO Senza Spine Stimulator [phone]//[phone] for pain put in by Dr. Sebastian 01/2023
== END 2025-03-14 12:01 | disposition home or self-care (01) ==
LOC: HO.HVS 11:05
PROVIDERS: PCP Internal Medicine; Visit Provider Surgery Vascular Surgery
DX: N18.6 End stage renal disease (principal)
CPT/HCPCS: 99214

== ENCOUNTER → 2025-03-14 11:04 | Outpatient (BNVA) | payer MEDICARE, SELFPAY | PROVIDERS: PCP Internal Medicine; Visit Provider Surgery Vascular Surgery | DX: I12.0 Hypertensive chronic kidney disease with stage 5 chronic kidney disease or end stage renal disease (principal); N18.6 End stage renal disease; Z99.2 Dependence on renal dialysis; Z87.891 Personal history of nicotine dependence | CPT/HCPCS: 99212 ==

== ENCOUNTER 2025-03-19 10:04 | Outpatient (REF) | payer MEDICARE, SELFPAY ==
--- OUTSIDE RECORDS SUMMARY | 2023-12-31 02:30 | XMS_ITS ---
Author Organization [facility] Address [address] [place] [address] Care Team Providers Care Racecourse Barrier Attendant Name Role Phone Jack HYLTON, [place] Primary Care Provider Unava Umesh Rodriguez Unavailable [phone] BISHNU MCMULLEN Unavailable Unavailable REASON FOR VISIT screening,hx polyps Encounters Encounter Location Date Provider Diagnosis [facility] [place] Out[place] [address] [place], [place] [phone] 12/31/2023 Umesh Ellsworth Colon cancer scree rose [...] * MARILIN NERIISDOB: 6 (79 yo F)Acc No.[id number]:12/31/2023 COLON WITH MAC Patient: KRISSY FRAZIER Provider: Yolanda Ellsworth MD :1945 A ge:78 Y S ex:Female Date:12/31/2023 Address:[address] [place] [address] [place] Pcp:Espinoza Santiago MD Subjective: * Chief Complaints: * S creening,hx polyps Assessment: * Assessment: 1. C olon cancer screening - Z12.11 (Primary) 2 . C olon polyps - K63.5? 3. D iverticulosis of large intestine without perforation or abscess without bleeding - K57.30 4 . O ther hemorrhoids - K64.8 Plan: * Procedure Codes: 4 5385 LESION REMOVAL COLONOSCOPY, [place]: [place] [address] COLONOSCOPY [place] BIOPSY, [place]: [place] [address] COLONOSCOPE, SUBMUCOUS INJ, Modifiers: 59 , [id number] INTRVL 3+YRS PTS CLNSCP DOCD, Modifiers: 1P 0528F RCMND FLW-UP 10 YRS DOCD, Modifiers: 8P Billing Information: * Procedure Codes: 61312 LESION REMOVAL COLONOSCOPY. [place]: [place] [address] COLONOSCOPY AND BIOPSY. [place]: [place] [address] COLONOSCOPE, SUBMUCOUS INJ. Modifiers: 59, PT 0529F [...] MD Date: Generated for Cynthia mckeon/Michael/Elyssaitting on: 11:18 AM EST
[2025-03-19 08:35] LABS: MANUAL DIFF FLAG NO
[2025-03-19 08:42] LABS: Hematocrit 30.5 % (37.0-47.0); Hemoglobin 9.6 g/dl (12.0-16.0); Imm Gran Abs Auto 0.04 X10*3/uL (0.00-0.03); Imm Gran Pct Auto 0.6 % (0.0-0.4); Lymphocytes Absolute Auto 1.7 X10*3/uL (1.2-4.9); Mean Corpuscular HGB Conc 31.5 g/dl (31.0-35.0); Mean Corpuscular Hemoglobin 31.7 pg (27.0-33.0); Mean Corpuscular Volume 100.7 fL (80.0-98.0); NRBC Abs Auto 0.000 X10*3/uL (0.0-0.012); NRBC Pct Auto 0.0 /100WBC (0.0-0.2); Platelet Count 167 X10*3/uL (160-400); Red Blood Count 3.03 X10*6/uL (4.20-5.50); White Blood Count 7.2 X10*3/uL (4.8-10.8)
[2025-03-19 08:49] LABS: Anion Gap 15 (12-20); Blood Urea Nitrogen 51 mg/dL (9-16); Calcium 7.7 mg/dL (8.4-10.2); Carbon Dioxide 26 mmol/L (22-29); Chloride 104 mmol/L (96-108); Estimated Glomerular Filt Rate 13; Potassium 3.5 mmol/L (3.3-5.1); Sodium 141 mmol/L (135-145)
--- OUTSIDE RECORDS SUMMARY | 2025-03-19 11:18 | XMS_ITS | Patient Health Record ---
Author Organization [facility] Address [address] [place] [address] Care Team Providers Care Heel Lift Gouger Name Role Phone Jack HYLTON, [place] Primary Care Provider Umesh Stephenson Unavailable [phone] BISHNU MCMULLEN Unavailable Unavailable Allergies Allergen (clinical [...] Status Risk Notes Problem Colon cancer screening (227910605) Colon cancer screening (Z12.11) Active confirmed Problem Screening for malignant neoplasm of colon (614034195) Encounter for screening for malignant neoplasm of colon (Z12.11) Active confirmed Problem History of adenomatous polyp of colon (925805664) History of adenomatous polyp of colon (Z86.010) Active confirmed Problem History of polyp of colon (situation) (219146611) Personal history of colonic polyps (Z86.010) Active confirmed Problem Diverticular disease of colon (209012899) Diverticulosis of large intestine without perforation or abscess without bleeding (K57.30) Active confirmed Problem Screening for malignant neoplasm of rectum (181513327) Encounter for screening for malignant neoplasm of rectum (Z12.12) Active confirmed Problem Anemia (401663156) Anemia (D64.9) Active confirmed Problem Iron deficiency anemia (07843950) Other iron deficiency anemia (D50.8) Active confirmed Problem Irritable bowel syndrome (51170938) 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) Active confirmed Problem Long-term current use of anticonvulsant (63265871431058) Long-term current use of anticonvulsant (Z79.899) Active confirmed Problem Adenoma of transverse colon (289358861) Adenoma of transverse colon (D12.3) Active confirmed Problem History of drug therapy (423152984) H/O long-term (current) use of anticoagulants (Z92.29) Active confirmed Encounters Encounter Location Date Provider Diagnosis [facility] [address] [place] [address] 05/04/2024 Umesh Ellsworth [facility] [address] [place] [address] 06/20/2024 Umesh Ellsworth Plan Of Treatment Pending [...] Date MEDICARE OF [place] [address] KEISERKATHYennifer HICKS [place]ART[place] [id number] [phone] [id number] KRISSY NERI Self - patient is the insured MED[employer] ATT[employer] CLAIMS [address] [place] [address] [phone] [id number] KRISSY NERI Self - patient is the insured Medical (General) History Medical History History ICD Code Asthma Anxiety/depression Alcohol abuse---abstinenet 2010 Denies AR,DM,CVA,renal disease IBS--negative duodenal and c olonic biopsies in 06/2011--no microscopic colitis, no celiac disease Tubular adenomas removed in 2002, 2003, and 2005---negative colonoscopy in 06/2011 GERD--EGD in 06/2011--no esophagitis, nor mal duodenl biopsies TIA in 2013--transient left-sided weakne ss HTN PAD Varicose veins TIA /w seizure DVT's-needed thrombectomies-sees Dr. Cecily taylor at [facility] Chronic anemia in relation to [...] surgery-bone spurs--both feet NEVRO Senza Spine Stimulator [phone]//[phone] for pain put in by Dr. Sebastian 01/2023
--- OUTSIDE RECORDS SUMMARY | 2025-03-19 11:18 | XMS_ITS | Patient Health Record ---
[facility] Address [address] [place] [address] Care Team Providers Care Merchandise Adjustment Clerk Name Role Phone Fuentes Santiago MDh Primary Care Provider Ike King Unavailable [phone] Allergies Allergen (clinical drug ingredient) Drug/Non Drug [...] primary osteoarthritis of the ankle and/or foot (177060155) Primary osteoarthrit is, right ankle and foot (M19.071) Active confirmed Problem Localized, primary osteoarthritis of the ankle and/or foot (015066753) Primary osteoarthrit is, left ankle and foot (M19.072) Active confirmed Problem Acquired hammer toe of right foot (1709512951984418) Other hammer toe(s) (acquired), right foot (M20.41) Active confirmed Problem Acquired hammer toe of left foot (7502631767790008) Other hammer toe(s) (acquired), left foot (M20.42) [...] X ray : Foot, right 3V 08/02/2017 [id number], [id number], JOINT/BURSA 0 08/30/2017 64493, [id number]/INJECT, JOINT/BURSA 1 2017 98519- Unna Boot 11/24/2017 Insurance Providers Payer Name Payer Address Payer Phone Subscriber Number Group Number Insured Name Patient Relationship to Insured Coverage Start Date Coverage End Date Medicare National [employer] [address] [place] [address] [id number] Cary Davis Self - patient is the insured 1 [employer] [address] [place] [address] [id number] Cary Davis Self - patient is the [...] dizziness, nausea, drive hieves, deh ydration 09/27/2017 [facility] L3rd toe 01/14/2018 [facility]-sever leg pain blood clots / Afib 20 21
--- OUTSIDE RECORDS SUMMARY | 2025-03-19 11:18 | XMS_ITS | Clinical Summary ---
Author Organization [facility] Address [address] [place] [address] Phone Care Team Providers Care Nail Professional Name Role Phone Espinoza Santiago MD Primary Care Provider [phone] Allergies Active Allergy Reactions Criticality Noted Date [...] propionate (FLONASE) 50 mcg/actuation nasal spray 1 [employer] by Each Nare route daily. Active clopidogreL [...] Take 1 Tab by mouth daily. Active dolhb-nv-2-dha-e dd-drrdpop-rfi (MegaRed Hickory-3 Krill Oil) 346-22-17-50 mg capsule Take 1 Cap by mouth [...] HISTORICAL ANGIOPLASTY OTHER SURGICAL HISTORY 09/01/2022 PROCEDURE: NE SLCTV CATHJ 3RD+ ORD SLCTV ABDL PEL/LXTR BRNCH OTHER SURGICAL HISTORY 09/01/2022 PROCEDURE: NE SLCTV CATHJ EA 2ND+ ORD ABDL PEL/LXTR ART BRNCH OTHER SURGICAL HISTORY 09/01/2022 PROCEDURE: X-RAY EXAM OF ARM/LEG ARTERIES OTHER SURGICAL HISTORY 09/01/2022 PROCEDURE: X-RAY EXAM OF PELVIC ARTERIES OTHER SURGICAL HISTORY 09/01/2022 PROCEDURE: ULTRASOUND GUIDANCE FOR VASCULAR AC Medical History Medical History Date Comments PVD (peripheral vascular dis ease) (CMS/HCC V24) DX:PVD (peripheral vascular disease) ([facility]) Varicose veins of bilateral lower extremities with [...] Description 05/18/2025 1:30 PM EST Ancillary Procedure [facility] [address] [place] [address] 06/28/2025 3:00 PM EDT Office Visit [facility] [place] [address] [place] [address] Maritza Webber PA [address] [place] [address] Health Maintenance Due Date Last Done Comments [...] Documents on File Type Date Recorded Patient Resist Coater Developer Expl anation Health Care Decision (hx) 06/16/2020 AD RENETTA DIRECTIVE Care Teams Nail Professional Relationship Specialty Start Date End Date Espinoza Santiago MD [address] [place] [address] [address] [place] PCP - General Internal Medicine 02/15/13
[2025-03-20 09:50] LABS: Chlamydia pneumoniae PCR Not Detected (Not Detect.); Coronavirus 229E PCR Not Detected (Not Detect.); Coronavirus HKU1 PCR Not Detected (Not Detect.); Coronavirus NL63 PCR Not Detected (Not Detect.); Coronavirus OC43 PCR Not Detected (Not Detect.); Influenza A H3 PCR Detected (Not Detect.); RSV PCR Not Detected (Not Detect.); Rhino/Enterovirus PCR Not Detected (Not Detect.); SARS-CoV-2 PCR Not Detected (Not Detect.)
[2025-03-20 10:31] LABS: Influenza A H1 PCR Not Detected (Not Detect.); Influenza A H1-2009 PCR Not Detected (Not Detect.)
== END 2025-03-19 10:05 ==
LOC: HO.MMNH2L 10:04
PROVIDERS: Visit Provider Physician Assistant Medical
DX: I12.0 Hypertensive chronic kidney disease with stage 5 chronic kidney disease or end stage renal disease (principal); N18.6 End stage renal disease; F03.90 Unspecified dementia, unspecified severity, without behavioral disturbance, psychotic disturbance, mood disturbance, and anxiety
CPT/HCPCS: 36415; 80048; 85025; 87633